=== PATIENT | female | born 1975 | race Hispanic/Latino ===

== ENCOUNTER 2019-12-03 16:00 | Emergency (ER) | payer SELFPAY, OTHER ==
--- OUTSIDE RECORDS SUMMARY | 2019-12-03 16:02 | XMS REPORT | Continuity of Care Document ---
:1975 Author Organization [facility] t Address [address] [place] [address] Care Team Providers Name Role Phone Napoleon Choudhary Attending Clinician Problems This patient has no known problems. Allergies, Adverse Reactions, Alerts This patient has no known allergies or adverse reactions. Medications This patient has no known medications. Procedures This patient has no known procedures. Encounters Start End Encounter Admission Attending Care Care Encounter Source Date/Time Date/Time Type Type Clinicians Facility Department ID 2019-08-02 2019-08-02 Office ELLEN Sanches [id number] 07:45:14 08:13:52 Visit Sury Bender CORE MAKER [id number] [facility] [id number] MATERNAL [id number] & CHILD [address] [place] [address] Results This patient has no known results.
[2019-12-03 17:14] LABS: Protime INR 0.91
[2019-12-03 17:23] LABS: Absolute Lymphocytes (CBC) 1.1 K/uL (0.7-4.9); Basophils % 0.2 % (0-1.3); Hematocrit 44.1 % (36.0-45.0); Lymphocytes % 17.6 % (15.3-44.8); MPV 8.3 fL (7.6-11.3); RBC Red Blood Cell Count 5.02 M/uL (3.86-4.86)
[2019-12-03 17:33] LABS: ALT/SGPT 33 U/L (12-78); Albumin 3.1 g/dL (3.4-5.0); Alkaline Phosphatase 133 U/L (45-117); BUN Blood Urea Nitrogen 7 mg/dL (7-18); Bicarbonate 25 mmol/L (21-32); Bilirubin Direct < 0.1 mg/dL (0-0.2); Bilirubin Total 0.3 mg/dL (0.2-1.0); Ferritin 185.2 ng/mL (8-388); Glucose Level 341 mg/dL (74-106); Lipase 40 U/L (73-393); Protein, Total 8.1 g/dL (6.4-8.2); Sodium Level 135 mmol/L (136-145); Troponin (Emerg Dept Use Only) < 0.02 ng/mL (0.0-0.045)
[2019-12-03] MEDS ORDERED: dexAMETHasone 4 MG/ML VIAL ONE (17:33)
[2019-12-03] MEDS ORDERED: NA CHLORIDE 0.9% 250 ML ONE (17:34)
[2019-12-03] MEDS ORDERED: AZITHROMYCIN 500 MG INJ IVPB ONE (17:34)
[2019-12-03 17:38] LABS: Potassium 3.9 mmol/L (3.5-5.1)
[2019-12-03 17:39] LABS: AST/SGOT 29 U/L (15-37)
[2019-12-03] MEDS ORDERED: NA CHLORIDE 0.9% 500 ML ONE (17:39)
[2019-12-03] MEDS ORDERED: ASPIRIN 81 MG CHEWABLE TABLET ONE (17:39)
--- NOTE | 2019-12-03 18:00 | EDPHYS ---
Physician Documentation [facility] Name: Effie Ferguson Age: 44 yrs Sex: Female : 1975 Arrival Date: 12/03/2019 Time: 16:01 Bed 14 Private MD: DAMIEN Physician Bairon Lujan HPI: 12/02 18:08 This 44 yrs old Female presents to ER via Ambulatory with complaints of snw Breathing Difficulty, Chest Pain, Covid +. 18:08 The patient has shortness of breath at rest. Onset: The symptoms/episode began/occurred snw gradually, 1 week(s) ago, and became persistent. Duration: The symptoms are continuous, and are unchanged since they started. Associated signs and symptoms: Pertinent positives: fatigue. Severity of symptoms: At their worst the symptoms were moderate. The patient has not experienced similar symptoms in the past. dx with CoVid 19 on at [facility]. 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 - Social history:: Smoking status: Patient reports the use of cigarette tobacco products, smokes one-half pack cigarettes per day. ROS: 18:07 Constitutional: Negative for fever, chills, and weight loss, Eyes: Negative for injury, snw pain, redness, and discharge, ENT: Negative for injury, pain, and discharge, Neck: Negative for injury, pain, and swelling, Abdomen/GI: Negative for abdominal pain, nausea, vomiting, diarrhea, and constipation, Back: Negative for injury and pain, : Negative for injury, bleeding, discharge, and swelling, MS/Extremity: Negative for injury and deformity, Skin: Negative for injury, rash, and discoloration, Neuro: Negative for headache, weakness, numbness, tingling, and seizure, Psych: Negative for depression, anxiety, suicide ideation, homicidal ideation, and hallucinations. 18:07 Cardiovascular: Positive for chest pain. 18:07 Respiratory: Positive for shortness of breath, at rest. Exam: 18:06 Constitutional: This is a well developed, well nourished patient who is awake, alert, snw and in no acute distress. Head/Face: Normocephalic, atraumatic. Eyes: Pupils equal round and reactive to light, extra-ocular motions intact. Lids and lashes normal. Conjunctiva and sclera are non-icteric and not injected. Cornea within normal limits. Periorbital areas with no swelling, redness, or edema. ENT: Nares patent. No nasal discharge, no septal abnormalities noted. Tympanic membranes are normal and external auditory canals are clear. Oropharynx with no redness, swelling, or masses, exudates, or evidence of obstruction, uvula midline. Mucous membranes moist. Neck: Trachea midline, no thyromegaly or masses palpated, and no cervical lymphadenopathy. Supple, full range of motion without nuchal rigidity, or vertebral point tenderness. No Meningismus. Chest/axilla: Normal chest wall appearance and motion. Nontender with no deformity. No lesions are appreciated. Abdomen/GI: Soft, non-tender, with normal bowel sounds. No distension or tympany. No guarding or rebound. No evidence of tenderness throughout. Back: No spinal tenderness. No costovertebral tenderness. Full range of motion. Skin: Warm, dry with normal turgor. Normal color with no rashes, no lesions, and no evidence of cellulitis. MS/ Extremity: Pulses equal, no cyanosis. Neurovascular intact. Full, normal range of motion. Neuro: Awake and alert, GCS 15, oriented to person, place, time, and situation. Cranial nerves II-XII grossly intact. Motor strength 5/5 in all extremities. Sensory grossly intact. Cerebellar exam normal. Normal gait. Psych: Awake, alert, with orientation to person, place and time. Behavior, mood, and affect are within normal limits. 18:06 Cardiovascular: Rate: tachycardic, Rhythm: regular, Pulses: no pulse deficits are appreciated. 18:06 Respiratory: the patient does not display signs of respiratory distress, Respirations: normal, Breath sounds: bronchial sounds, that are moderate, slightly halting respirations. Vital Signs: 16:12 BP 151 / 81; Pulse 113; Resp 24; Temp 98.7; Pulse Ox 97% ; Weight 77.11 kg; Height 5 ll1 ft. 1 in. (154.94 cm); Pain 6/10; 18:01 BP 139 / 78; Pulse 108; Resp 20 S; Pulse Ox 99% on R/A; jd3 19:18 BP 132 / 79; Pulse 100; Resp 19 S; Pulse Ox 99% on R/A; jd3 16:12 Body Mass Index 32.12 (77.11 kg, 154.94 cm) ll1 MDM: 16:21 Patient medically screened. snw 18:05 Data reviewed: vital signs, nurses notes, lab test result(s), EKG, radiologic studies. snw Data interpreted: Pulse oximetry: on room air is 99 %. Interpretation: normal. Counseling: I had a detailed discussion with the patient and/or guardian regarding: the historical points, exam findings, and any diagnostic results supporting the discharge/admit diagnosis, the presence of at least one elevated blood pressure reading (>120/80) during this emergency department visit, lab results, radiology results, the need for outpatient follow up, to return to the emergency department if symptoms worsen or persist or if there are any questions or concerns that arise at home. Special discussion: Based on the history and exam findings, there is no indication for further emergent testing or inpatient evaluation. I discussed with the patient/guardian the need to see the primary care provider for further evaluation of the symptoms. I discussed with the patient/guardian the need to see the cooker cleaner for further evaluation of the symptoms. 12/02 16:21 Order name: Blood Culture Adult (2) snw 12/02 16:21 Order name: BMP; Complete Time: 17:40 snw 12/02 16:21 Order name: C-Reactive Protein; Complete Time: 17:40 snw 12/02 16:21 Order name: CBC with Diff; Complete Time: 17:35 snw 12/02 16:21 Order name: D-Dimer; Complete Time: 17:22 snw 12/02 16:21 Order name: Ferritin; Complete Time: 17:40 snw 12/02 16:21 Order name: Lactate; Complete Time: 17:25 snw 12/02 16:21 Order name: LFT's; Complete Time: 17:40 snw 12/02 16:21 Order name: Lipase; Complete Time: 17:40 snw 12/02 16:21 Order name: Procalcitonin; Complete Time: 17:45 snw 12/02 16:21 Order name: PT-INR; Complete Time: 17:22 snw 12/02 16:21 Order name: Ptt, Activated; Complete Time: 17:22 snw 12/02 16:21 Order name: Troponin (emerg Dept Use Only); Complete Time: 17:40 snw 12/02 16:21 Order name: TS; Complete Time: 18:04 snw 12/02 16:21 Order name: CXR XRAY; Complete Time: 18:20 snw 12/02 16:21 Order name: EKG; Complete Time: 16:22 snw 12/02 16:21 Order name: Cardiac monitoring; Complete Time: 16:37 snw 12/02 16:21 Order name: Droplet/Contact Precautions; Complete Time: 16:25 snw 12/02 16:21 Order name: EKG - Nurse/Tech; Complete Time: 16:37 snw 12/02 16:21 Order name: IV Start; Complete Time: 17:02 snw 12/02 16:21 Order name: Labs collected and sent; Complete Time: 17:03 snw 12/02 16:21 Order name: O2 Per Protocol; Complete Time: 16:25 snw 12/02 16:21 Order name: O2 Sat Monitoring; Complete Time: 16:25 snw Administered Medications: 17:39 Drug: Decadron - Dexamethasone 10 mg Route: IVP; Site: right antecubital; jd3 18:30 Follow up: Response: No adverse reaction jd3 17:39 Drug: Zithromax 500 mg Route: IVPB; Infused Over: 1 hrs; Site: right antecubital; jd3 18:40 Follow up: Response: No adverse reaction; IV Status: Completed infusion; IV Intake: jd3 250ml 17:39 Drug: Aspirin Chewable Tablet 324 mg Route: PO; jd3 18:30 Follow up: Response: No adverse reaction jd3 17:39 Drug: NS 0.9% 500 ml Route: IV; Rate: 100 ml/hr; Site: right antecubital; jd3 19:22 Follow up: Response: No adverse reaction; IV Status: Order to discontinue infusion jd3 Disposition: 12/03 18:38 Co-signature as Attending Physician, Bairon HENRY I agree with the assessment and jacqueline plan of care. Disposition: 12/03/19 17:59 Discharged to Home. Impression: Pneumonia due to SARS-associated coronavirus. - Condition is Stable. - Discharge Instructions: Rehydration, Adult, COVID-19. - Prescriptions for Zinc (with A and C) Lozenges - dissolve 1 lozenge by ORAL route once daily; 30 lozenge. melatonin - take 5 milligram by ORAL route At bedtime; 30 milligram. Prednisone 20 mg Oral Tablet - take 2 tablet by ORAL route once daily for 5 days; 10 tablet. Zithromax 500 mg Oral Tablet - take 1 tablet by ORAL route once daily for 5 days; 5 tablet. - Medication Reconciliation Form, Thank You Letter, Antibiotic Education, Prescription Opioid Use form. - Follow up: Private Physician; When: 1 - 2 days; Reason: Recheck today's complaints, Continuance of care, Re-evaluation by your physician. Follow up: Emergency Department; When: As needed; Reason: Worsening of condition. - Notes: Please take Aspirin 81mg orally daily for 1 month Signatures: Dispatcher [employer] EDMS Bairon Lujan, Charlotte Wiley MD, cha, CLAIM ANALYST-C CLAIM ANALYST-Csnw Josse Bailey RN RN Kylah Billingsley RN RN ll1 Corrections: (The following items were deleted from the chart) 12/02 19:31 17:59 12/03/2019 17:59 Discharged to Home. Impression: Pneumonia due to SARS-associated jd3 coronavirus. Condition is Stable. Forms are Medication Reconciliation Form, Thank You Letter, Antibiotic Education, Prescription Opioid Use. Follow up: Private Physician; When: 1 - 2 days; Reason: Recheck today's complaints, Continuance of care, Re-evaluation by your physician. Follow up: Emergency Department; When: As needed; Reason: Worsening of condition. snw
--- NOTE | 2019-12-03 18:00 | ER ---
Nurse's Notes [facility] Name: Effie Ferguson Age: 44 yrs Sex: Female : 1975 Arrival Date: 12/03/2019 Time: 16:01 Bed 14 Private MD: Diagnosis: Pneumonia due to SARS-associated coronavirus Presentation: 12/02 16:12 Chief complaint: Patient states: CP and SOB for 2 days. Found out covid positive ll1 ., + body aches, fatigue, nausea. Coronavirus screen: Client denies travel out of the [place] in the last 14 days. difficulty breathing, fatigue, Client presents with at least one sign or symptom that may indicate coronavirus-19. Standard/surgical mask placed on the client. Client reports previous positive COVID test result. Ebola Screen: Patient denies travel to an Ebola-affected area in the 21 days before illness onset. Initial Sepsis Screen: Does the patient meet any 2 criteria? HR > 90 bpm. No. Patient's initial sepsis screen is negative. Does the patient have a suspected source of infection? Yes: Productive cough/pneumonia. Risk Assessment: Do you want to hurt yourself or someone else? Patient reports no desire to harm self or others. Onset of symptoms was December 02, 2019. 16:12 Method Of Arrival: Ambulatory ll1 16:12 Acuity: MARNI 3 ll1 Triage Assessment: 19:18 Respiratory: Onset: The symptoms/episode began/occurred gradually, the patient has mild jd3 shortness of breath. 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 - Social history:: Smoking status: Patient reports the use of cigarette tobacco products, smokes one-half pack cigarettes per day. Screenin:18 Abuse screen: Denies threats or abuse. Nutritional screening: No deficits noted. jd3 Tuberculosis screening: No symptoms or risk factors identified. Fall Risk Ambulatory Aid- None/Bed Rest/Nurse Assist (0 pts). Gait- Normal/Bed Rest/Wheelchair (0 pts) Mental Status- Oriented to own ability (0 pts). Total Greer Fall Scale indicates No Risk (0-24 pts). Assessment: 16:25 General: Appears in no apparent distress. uncomfortable, Behavior is calm, cooperative, jd3 appropriate for age. Pain: Complains of pain in chest Quality of pain is described as pressure. Neuro: Level of Consciousness is awake, alert, obeys commands, Oriented to person, place, time, situation. Cardiovascular: Reports chest pain, Heart tones present Capillary refill < 3 seconds Rhythm is sinus tachycardia. Respiratory: Reports shortness of breath at rest pain with respiration Airway is patent Respiratory effort is even, labored, Respiratory pattern is regular, symmetrical, Breath sounds are clear bilaterally. GI: Abdomen is round non-distended, Abd is soft and non tender X 4 quads. Reports nausea. : No signs and/or symptoms were reported regarding the genitourinary system. EENT: No signs and/or symptoms were reported regarding the EENT system. Derm: Skin is intact, Skin is dry, Skin is normal, Skin temperature is warm. Musculoskeletal: Circulation, motion, and sensation intact. Range of motion: intact in all extremities. 17:30 Reassessment: Patient appears in no apparent distress at this time. No changes from jd3 previously documented assessment. Patient and/or family updated on plan of care and expected duration. Pain level reassessed. Patient is alert, oriented x 3, equal unlabored respirations, skin warm/dry/pink. 18:00 Reassessment: Patient appears in no apparent distress at this time. No changes from jd3 previously documented assessment. Patient and/or family updated on plan of care and expected duration. Pain level reassessed. Patient is alert, oriented x 3, equal unlabored respirations, skin warm/dry/pink. awaiting med infusion before discharge. 19:16 Reassessment: Patient appears in no apparent distress at this time. Patient and/or jd3 family updated on plan of care and expected duration. Pain level reassessed. Patient is alert, oriented x 3, equal unlabored respirations, skin warm/dry/pink. awaiting ride for discharge. pt reporting understanding of discharge instructions. Vital Signs: 16:12 BP 151 / 81; Pulse 113; Resp 24; Temp 98.7; Pulse Ox 97% ; Weight 77.11 kg; Height 5 ll1 ft. 1 in. (154.94 cm); Pain 6/10; 18:01 BP 139 / 78; Pulse 108; Resp 20 S; Pulse Ox 99% on R/A; jd3 19:18 BP 132 / 79; Pulse 100; Resp 19 S; Pulse Ox 99% on R/A; jd3 16:12 Body Mass Index 32.12 (77.11 kg, 154.94 cm) ll1 ED Course: 16:01 Patient arrived in ED. ds1 16:14 Triage completed. ll1 16:15 Arm band placed on Patient placed in an exam room, on a stretcher. ll1 16:19 Charlotte Gutierrez FNP-C is [facility]. snw 16:19 Bairon Lujan MD is Attending Physician. snw 16:25 Josse Bailey RN is Primary Nurse. jd3 16:45 CXR XRAY In Process Unspecified. EDMS 16:50 Initial lab(s) drawn, by me, sent to lab. First set of blood cultures drawn by me. 3 Inserted saline lock: 20 gauge in right antecubital area, using aseptic technique. Blood collected. 16:50 T\T\S collected, blood band applied to patient. dh3 16:55 Second set of blood cultures drawn by me. dh3 19:19 Patient has correct armband on for positive identification. Bed in low position. Call jd3 light in reach. Side rails up X 1. secured entrance monitor on. Pulse ox on. NIBP on. 19:19 No provider procedures requiring assistance completed. IV discontinued, intact, jd3 bleeding controlled, No redness/swelling at site. Pressure dressing applied. Administered Medications: 17:39 Drug: Decadron - Dexamethasone 10 mg Route: IVP; Site: right antecubital; jd3 18:30 Follow up: Response: No adverse reaction jd3 17:39 Drug: Zithromax 500 mg Route: IVPB; Infused Over: 1 hrs; Site: right antecubital; jd3 18:40 Follow up: Response: No adverse reaction; IV Status: Completed infusion; IV Intake: jd3 250ml 17:39 Drug: Aspirin Chewable Tablet 324 mg Route: PO; jd3 18:30 Follow up: Response: No adverse reaction jd3 17:39 Drug: NS 0.9% 500 ml Route: IV; Rate: 100 ml/hr; Site: right antecubital; jd3 19:22 Follow up: Response: No adverse reaction; IV Status: Order to discontinue infusion jd3 Intake: 18:40 IV: 250ml; Total: 250ml. jd3 Outcome: 17:59 Discharge ordered by MD. snow 19:20 Condition: stable jd3 19:30 Discharged to home ambulatory, with family. jd3 19:30 Discharge instructions given to patient, Instructed on discharge instructions, follow up and referral plans. medication usage, Demonstrated understanding of instructions, follow-up care, medications, Prescriptions given X 4. 19:31 Patient left the ED. jd3 Signatures: Dispatcher [employer] EDMS Charlotte Gutierrez, ROLOC RECEIVING COORDINATOR-Aisha Forrest dsShayna Soriano Jonathon RN RN jd3 Kylah Fuller RN RN ll1 Corrections: (The following items were deleted from the chart) 18:01 18:00 Reassessment: awaiting med infusion before discharge. jd3 jd3
--- NOTE | 2019-12-03 18:15 | RAD REPORT ---
EXAM DESCRIPTION: Jeffry Single View12/03/2019 4:45 pm CLINICAL HISTORY: Cough COMPARISON: 2017 FINDINGS: Mild bilateral pulmonary opacities suspected The heart is normal size IMPRESSION: Mild bilateral pulmonary opacities likely pneumonia
[2019-12-03] MEDS ORDERED: PROMETHAZINE 25 MG TABLET ONE (18:34)
[2019-12-03 20:31] VITALS: TEMP 98.7
[2019-12-03 20:32] VITALS: O2SAT 99
[2019-12-03 20:35] VITALS: BP 132/79
--- NOTE | 2019-12-05 07:46 | EKG ---
Test Date: 2019-12-03 Test Time: 16:33:29 Enroller: JOHN MEASUREMENT RESULTS: Intervals: Rate: 103 ND: 144 QRSD: 74 QT: 332 QTc: 434 Winside: P: 55 ND: 144 QRS: 15 T: 61 INTERPRETIVE STATEMENTS: Sinus tachycardia Anteroseptal infarct, age undetermined Abnormal ECG Compared to ECG 11/06/2016 20:24:40 Sinus rhythm no longer present Myocardial infarct finding still present Electronically Signed On 12-05-19 07:43:17 CDT by William Muñoz
== END 2019-12-03 19:31 | disposition home or self-care (01) ==
LOC: ER 16:00
DX: J18.9 Pneumonia, unspecified organism (principal); Z86.19 Personal history of other infectious and parasitic diseases; E11.9 Type 2 diabetes mellitus without complications; F17.210 Nicotine dependence, cigarettes, uncomplicated
CPT/HCPCS: 36415; 71045; 80048; 80076; 82728; 83605; 83690; 84145; 84484; 85025; 85379; 85610; 85730; 86140; 86850; 86900; 86901; 87040; 93005; 96361; 96365; 96375; 99284; J0456; J1100; J7040; J7050; Q0169

== ENCOUNTER 2019-12-16 10:27 | Emergency (ER) | payer SELFPAY, OTHER ==
--- OUTSIDE RECORDS SUMMARY | 2019-12-16 10:41 | XMS REPORT | Continuity of Care Document ---
:1975 Author Organization [facility] t Address 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 [id number] MATERNAL [id number] & CHILD [address] [place] [address] Results This patient has no known results.
[2019-12-16] MEDS ORDERED: MAGNES/ALUMIN/SIMET 30ML UCUP ONE (11:18)
[2019-12-16] MEDS ORDERED: ONDANSETRON 4 MG/2 ML VIAL ONE (11:18)
[2019-12-16] MEDS ORDERED: LIDOCAINE VISCOUS 2% SOLN 15 ML UDC ONE (11:18)
[2019-12-16] MEDS ORDERED: NA CHLORIDE 0.9% 1,000 ML ONE (11:18)
[2019-12-16] MEDS ORDERED: FAMOTIDINE 20 MG/2 ML VIAL IV ONE (11:18)
[2019-12-16] MEDS ORDERED: MORPHINE 4 MG/ML SYR ONE (12:49)
[2019-12-16 13:36] LABS: ALT/SGPT 17 U/L (12-78); AST/SGOT 10 U/L (15-37); Alkaline Phosphatase 99 U/L (45-117); BUN Blood Urea Nitrogen 5 mg/dL (7-18); Bicarbonate 23 mmol/L (21-32); Bilirubin Total 0.4 mg/dL (0.2-1.0); Glucose Level 320 mg/dL (74-106); Sodium Level 136 mmol/L (136-145)
[2019-12-16 13:37] LABS: Albumin 3.2 g/dL (3.4-5.0); Bilirubin Direct < 0.1 mg/dL (0-0.2); Lipase 318 U/L (73-393); Protein, Total 7.1 g/dL (6.4-8.2)
[2019-12-16 13:48] LABS: Absolute Lymphocytes (CBC) 1.7 K/uL (0.7-4.9); Basophils % 0.4 % (0-1.3); Hematocrit 35.2 % (36.0-45.0); Lymphocytes % 13.7 % (15.3-44.8); MPV 8.6 fL (7.6-11.3); RBC Red Blood Cell Count 4.02 M/uL (3.86-4.86)
--- NOTE | 2019-12-16 14:29 | RAD REPORT ---
EXAM DESCRIPTION: CT - Abdomen Pelvis W Contrast - 12/16/2019 2:12 pm CLINICAL HISTORY: EPIGASTRIC PAIN COMPARISON: CT ABD PELVIS W CONTRAST dated 03/14/2014 TECHNIQUE: Biphasic, helical CT imaging of the abdomen and pelvis was performed following 100 ml non -ionic IV contrast. Oral contrast was given. All CT scans are performed using dose optimization technique as appropriate and may include automated exposure control or mA/KV adjustment according to patient size. FINDINGS: No suspicious findings in the lung bases. Liver and spleen show no suspicious focal findings. Liver shows diffuse fatty infiltration. Cholecyst ectomy clips are present. No biliary tree dilatation. No solid or cystic mass of the pancreatic parenchyma identified. There is a trace amount of stranding in the fat between the pancreatic head and duodenal bulb. Zendejas of the duodenal bulb are slightly th ickened or edematous. No small bowel dilatation or mass. Appendix is normal. Symmetric renal function is seen with no hydronephrosis or suspicious renal mass. No pyelonephritis o r acute parenchymal process. No bladder abnormalities. No adrenal abnormalities. Uterus is absent. No mass of the vaginal cuff. The 17 millimeter right ovarian cyst is present. A 5.1 x 2.7 centimeter en larged lobulated left ovary is present. This has multiple low-density areas in is probably multiple c ysts. This is an enlargement from 2015 and warrants monitoring with follow-up sonography in 4-6 month s. No dilated bowel loops or bowel wall thickening. No free air, free fluid or inflammatory stranding. No mass or bulky lymphadenopathy. A 3 centimeter fat only supraumbilical hernia is present fractiona lly larger than 2015. Neck is 15 mm. No bowel involvement or other acute finding. No acute bone finding. IMPRESSION: Trace amount of stranding is seen between the pancreatic head and the duodenal bulb. Thi s could be duodenitis or minimal pancreatitis. Correlation is needed with clinical presentation and l ab findings. Fatty infiltration of the liver. No biliary tree dilatation. A 5.1 x 2.7 centimeter enlarged left ovary is present likely confluence of multiple small cysts or fo llicles. This needs ongoing monitoring with re-evaluation in 4-6 months.
--- NOTE | 2019-12-16 14:54 | ER ---
Nurse's Notes [facility] Name: Effie Ferguson Age: 44 yrs Sex: Female : 1975 Arrival Date: 12/16/2019 Time: 10:28 Bed 14 Private MD: Diagnosis: Epigastric pain Presentation: 12/15 10:34 Chief complaint: Patient states: epigastric burning with nausea that began 2 days ago. ss Pt reports that the pain radiates towards her back. Pt states, "I had COVID a few weeks ago and it might be from taking all the pain medication.". Coronavirus screen: Client denies travel out of the [place] in the last 14 days. Ebola Screen: Patient denies exposure to infectious person. Patient denies travel to an Ebola-affected area in the 21 days before illness onset. Initial Sepsis Screen: Does the patient meet any 2 criteria? HR > 90 bpm. Does the patient have a suspected source of infection? No. Patient's initial sepsis screen is negative. Risk Assessment: Do you want to hurt yourself or someone else? Patient reports no desire to harm self or others. Onset of symptoms was December 14, 2019. 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 - Social history:: Smoking status: Patient reports the use of cigarette tobacco products, smokes one-half pack cigarettes per day. Screenin:45 Abuse screen: Denies threats or abuse. Denies injuries from another. Nutritional ca1 screening: No deficits noted. Tuberculosis screening: No symptoms or risk factors identified. Fall Risk IV access (20 points). Assessment: 10:45 General: Appears in no apparent distress. comfortable, Behavior is calm, cooperative, ca1 appropriate for age. Pain: Complains of pain in epigastric area Pain does not radiate. Pain currently is 8 out of 10 on a pain scale. Pain began 2-3 days ago. Is continuous. Neuro: Level of Consciousness is awake, alert, obeys commands, Oriented to person, place, time, situation. Cardiovascular: Heart tones S1 S2 present Capillary refill < 3 seconds Patient's skin is warm and dry. Rhythm is sinus rhythm. Respiratory: Airway is patent Respiratory effort is even, unlabored, Respiratory pattern is regular, symmetrical, Breath sounds are clear bilaterally. GI: Abdomen is round non-distended, Bowel sounds present X 4 quads. Abd is soft X 4 quads Abdomen is tender to palpation in epigastric area Reports nausea. : No signs and/or symptoms were reported regarding the genitourinary system. EENT: No signs and/or symptoms were reported regarding the EENT system. Derm: Skin is intact, is healthy with good turgor, Skin is pink, warm \\T\\ dry. Musculoskeletal: Circulation, motion, and sensation intact. Capillary refill < 3 seconds. 11:45 Reassessment: Patient appears in no apparent distress at this time. Patient and/or ca1 family updated on plan of care and expected duration. Pain level reassessed. Patient is alert, oriented x 3, equal unlabored respirations, skin warm/dry/pink. 12:40 Reassessment: Patient appears in no apparent distress at this time. Patient and/or ca1 family updated on plan of care and expected duration. Pain level reassessed. Patient is alert, oriented x 3, equal unlabored respirations, skin warm/dry/pink. 13:49 Reassessment: Patient appears in no apparent distress at this time. Patient and/or ca1 family updated on plan of care and expected duration. Pain level reassessed. Patient is alert, oriented x 3, equal unlabored respirations, skin warm/dry/pink. 14:37 Reassessment: Patient appears in no apparent distress at this time. Patient and/or ca1 family updated on plan of care and expected duration. Pain level reassessed. Patient is alert, oriented x 3, equal unlabored respirations, skin warm/dry/pink. 15:15 Reassessment: Patient appears in no apparent distress at this time. Patient is alert, ca1 oriented x 3, equal unlabored respirations, skin warm/dry/pink. Vital Signs: 10:34 BP 162 / 105; Pulse 99; Resp 20; Temp 97.7(TE); Pulse Ox 97% on R/A; Weight 74.84 kg; ss Height 5 ft. 1 in. (154.94 cm); Pain 1010; 11:30 BP 157 / 80; Pulse 82; Resp 17 S; Pulse Ox 100% on R/A; ca1 12:40 BP 152 / 88; Pulse 84; Resp 18 S; Pulse Ox 100% on R/A; ca1 13:49 BP 162 / 63; Pulse 81; Resp 16 S; Pulse Ox 100% on R/A; ca1 14:37 BP 140 / 62; Pulse 86; Resp 18 S; Pulse Ox 100% on R/A; ca1 15:15 BP 135 / 72; Pulse 81; Resp 15 S; Pulse Ox 100% ; ca1 10:34 Body Mass Index 31.18 (74.84 kg, 154.94 cm) ss ED Course: 10:28 Patient arrived in ED. bp1 10:35 Triage completed. ss 10:36 Arm band placed on right wrist. ss 10:39 Bairon Newberry PA is PHCP. cp 10:39 Abe Westbrook MD is Attending Physician. cp 10:40 Krista Pizarro RN is Primary Nurse. ca1 11:16 Patient has correct armband on for positive identification. Placed in gown. Bed in low mh5 position. Call light in reach. Side rails up X 1. Warm blanket given. Pulse ox on. NIBP on. 11:16 Initial lab(s) drawn, Repeat lab(s) drawn. sent to lab. mh5 11:17 Basic Metabolic Panel Sent. mh5 11:17 CBC with Diff Sent. mh5 11:17 Hepatic Function Sent. mh5 11:17 Lipase Sent. mh5 11:18 Inserted saline lock: 20 gauge in right antecubital area, using aseptic technique. ca1 Blood collected. 14:12 CT Abd/Pelvis - IV Contrast Only In Process Unspecified. EDMS 14:52 Gagandeep Cardoza MD is Referral Physician. cp 15:18 No provider procedures requiring assistance completed. IV discontinued, intact, ca1 bleeding controlled, No redness/swelling at site. Pressure dressing applied. Administered Medications: 11:15 Drug: GI Cocktail without - (Maalox Suspension 30 ml, Lidocaine Liquid 2 % 15 ca1 ml) Route: PO; 11:18 Drug: NS 0.9% 1000 ml Route: IV; Rate: 1 bolus; Site: right antecubital; ca1 11:19 Drug: Pepcid 20 mg Route: IVP; Site: right antecubital; ca1 11:21 Drug: Zofran (Ondansetron) 4 mg Route: IVP; Site: right antecubital; ca1 12:38 Drug: morphine 4 mg {Note: rass 0.} Route: IVP; Site: right antecubital; ca1 14:49 Drug: ProTONIX 40 mg Route: IVP; Site: right antecubital; ca1 Outcome: 14:53 Discharge ordered by MD. cp 15:18 Discharged to home ambulatory. ca1 15:18 Condition: stable 15:18 Discharge instructions given to patient, Instructed on discharge instructions, follow up and referral plans. no drinking with medication, no driving heavy equipment, medication usage, Demonstrated understanding of instructions, follow-up care, medications, Prescriptions given X 3. 15:23 Patient left the ED. ca1 Signatures: Dispatcher [employer] EDMS Ghada Castro RN RN ss Bairon Newberry PA PA Effie Duque [facility] Krista Pizarro RN RN ca1 Araceli Sampson [facility] Corrections: (The following items were deleted from the chart) 14:39 14:37 Pulse 86bpm; Resp 18bpm; Spontaneous; Pulse Ox 100% RA; ca1 ca1
--- NOTE | 2019-12-16 14:54 | EDPHYS ---
Physician Documentation [facility] Name: Effie Ferguson Age: 44 yrs Sex: Female : 1975 Arrival Date: 12/16/2019 Time: 10:28 Bed 14 Private MD: ED Physician Abe Westbrook HPI: 12/15 11:05 This 44 yrs old Female presents to ER via Ambulatory with complaints of cp Abdominal Pain. 11:05 The patient presents with abdominal pain in the epigastric area. Onset: The cp symptoms/episode began/occurred this morning. The symptoms radiate to back. 11:05 Associated signs and symptoms: Pertinent positives: nausea, Pertinent negatives: chest cp pain, constipation, diarrhea, dysuria, fever, palpitations, shortness of breath, vomiting. 11:05 The symptoms are described as burning, constant. 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 - Social history:: Smoking status: Patient reports the use of cigarette tobacco products, smokes one-half pack cigarettes per day. ROS: 11:10 Constitutional: Negative for body aches, chills, fever, poor PO intake. cp 11:10 Eyes: Negative for injury, pain, redness, and discharge. cp 11:10 ENT: Negative for ear pain, sore throat, difficulty swallowing, difficulty handling secretions. 11:10 Cardiovascular: Negative for chest pain, palpitations. 11:10 Respiratory: Negative for cough, shortness of breath, wheezing. 11:10 Abdomen/GI: Positive for abdominal pain, nausea, Negative for vomiting, diarrhea, constipation. 11:10 Back: Positive for radiated pain. 11:10 : Negative for urinary symptoms. 11:10 All other systems are negative. Exam: 11:00 ECG was reviewed by the Attending Physician. cp 11:13 Constitutional: The patient appears in no acute distress, alert, awake, cp non-diaphoretic, non-toxic, well developed, well nourished, uncomfortable. 11:13 Head/Face: Normocephalic, atraumatic. cp 11:13 Eyes: Periorbital structures: appear normal, Conjunctiva: normal, no exudate, no injection, Sclera: no appreciated abnormality, Lids and lashes: appear normal, bilaterally. 11:13 ENT: External ear(s): are unremarkable, Nose: is normal, Posterior pharynx: Airway: no evidence of obstruction, patent. 11:13 Chest/axilla: Inspection: normal, Palpation: is normal, no crepitus, no tenderness. 11:13 Cardiovascular: Rate: normal, Rhythm: regular. 11:13 Respiratory: the patient does not display signs of respiratory distress, Respirations: normal, no use of accessory muscles, no retractions, labored breathing, is not present, Breath sounds: are clear throughout, no decreased breath sounds. 11:13 Abdomen/GI: Inspection: abdomen appears normal, Bowel sounds: active, all quadrants, Palpation: soft, in all quadrants, severe abdominal tenderness, in the epigastric area, rebound tenderness, is not appreciated, voluntary guarding, is not appreciated, involuntary guarding, is not appreciated. 11:13 Back: pain, that is moderate, of the mid back area. Vital Signs: 10:34 BP 162 / 105; Pulse 99; Resp 20; Temp 97.7(TE); Pulse Ox 97% on R/A; Weight 74.84 kg; ss Height 5 ft. 1 in. (154.94 cm); Pain 10; 11:30 BP 157 / 80; Pulse 82; Resp 17 S; Pulse Ox 100% on R/A; ca1 12:40 BP 152 / 88; Pulse 84; Resp 18 S; Pulse Ox 100% on R/A; ca1 13:49 BP 162 / 63; Pulse 81; Resp 16 S; Pulse Ox 100% on R/A; ca1 14:37 BP 140 / 62; Pulse 86; Resp 18 S; Pulse Ox 100% on R/A; ca1 15:15 BP 135 / 72; Pulse 81; Resp 15 S; Pulse Ox 100% ; ca1 10:34 Body Mass Index 31.18 (74.84 kg, 154.94 cm) ss MDM: 10:49 Patient medically screened. cp 14:52 Data reviewed: vital signs, nurses notes, lab test result(s), radiologic studies, CT cp scan. 12/15 10:57 Order name: Basic Metabolic Panel; Complete Time: 13:59 cp 12/15 13:59 Interpretation: Normal except: GLUC 320; BUN 5. cp 12/15 10:57 Order name: CBC with Diff; Complete Time: 13:59 cp 12/15 13:59 Interpretation: Normal except: WBC 12.7; HCT 35.2; BAYLEE% 79.9; LYM% 13.7; NEUT A 10.1. cp 12/15 10:57 Order name: Hepatic Function; Complete Time: 13:59 cp 12/15 13:59 Interpretation: Normal except: AST 10; ALB 3.2; GLOB 3.9; A/G 0.8. cp 12/15 10:57 Order name: Lipase; Complete Time: 13:59 cp 12/15 12:19 Order name: CT Abd/Pelvis - IV Contrast Only; Complete Time: 14:36 cp 12/15 14:36 Interpretation: Report reviewed. cp 12/15 10:57 Order name: IV Saline Lock; Complete Time: 11:18 cp 12/15 10:57 Order name: Labs collected and sent; Complete Time: 11:17 cp 12/15 13:28 Order name: EKG Electrocardiogram EDAK 12/15 11:52 Order name: Labs - recollect needed: cbc \T\ basic-extemely lipemic; Complete Time: 12:38 sv 12/15 14:37 Order name: PO challenge; Complete Time: 15:22 cp EC:00 Rate is 81 beats/min. Rhythm is regular. MD interval is normal. QRS interval is normal. cp QT interval is normal. T waves are Inverted in lead III. Interpreted by me. Reviewed by me. Administered Medications: 11:15 Drug: GI Cocktail without - (Maalox Suspension 30 ml, Lidocaine Liquid 2 % 15 ca1 ml) Route: PO; 11:18 Drug: NS 0.9% 1000 ml Route: IV; Rate: 1 bolus; Site: right antecubital; ca1 11:19 Drug: Pepcid 20 mg Route: IVP; Site: right antecubital; ca1 11:21 Drug: Zofran (Ondansetron) 4 mg Route: IVP; Site: right antecubital; ca1 12:38 Drug: morphine 4 mg {Note: rass 0.} Route: IVP; Site: right antecubital; ca1 14:49 Drug: ProTONIX 40 mg Route: IVP; Site: right antecubital; ca1 Disposition: 15:54 Co-signature as Attending Physician, Abe Westbrook MD I agree with the assessment and kdr plan of care. Disposition: 12/16/19 14:53 Discharged to Home. Impression: Epigastric pain. - Condition is Stable. - Discharge Instructions: Gastritis, Adult, Gastroesophageal Reflux Disease, Adult, Upper Endoscopy. - Prescriptions for Protonix 40 mg Oral Tablet - take 1 tablet by ORAL route once daily; 30 tablet. Zofran 4 mg Oral Tablet - take 1 tablet by ORAL route every 12 hours As needed; 20 tablet. Tramadol 50 mg Oral Tablet - take 1 tablet by ORAL route every 8 hours as needed; 12 tablet. - Medication Reconciliation Form, Thank You Letter, Antibiotic Education, Prescription Opioid Use form. - Follow up: Gagandeep Cardoza MD; When: 2 - 3 days; Reason: Recheck today's complaints. - Problem is new. - Symptoms have improved. Signatures: Dispatcher [employer] Evelyn Hart, RN RN Abe Westbrook MD MD [facility] Gahda Castro RN RN Bairon Newberry PA PA cp Acvanessa, Krista, RN RN ca1 Corrections: (The following items were deleted from the chart) 11:51 11:51 Labs - recollect needed ordered. [facility] 15:23 14:53 12/16/2019 14:53 Discharged to Home. Impression: Epigastric pain. Condition is ca1 Stable. Forms are Medication Reconciliation Form, Thank You Letter, Antibiotic Education, Prescription Opioid Use. Follow up: Gagandeep Cardoza; When: 2 - 3 days; Reason: Recheck today's complaints. Problem is new. Symptoms have improved. cp
[2019-12-16] MEDS ORDERED: PANTOPRAZOLE 40 MG INJ ONE (14:59)
[2019-12-16] MEDS ORDERED: WATER FOR INJ,STERILE 10 ML ONE (14:59)
[2019-12-16 15:48] VITALS: TEMP 97.7
[2019-12-16 15:49] VITALS: O2SAT 100
[2019-12-16 16:07] VITALS: BP 135/72
--- NOTE | 2019-12-17 09:33 | EKG ---
Test Date: 2019-12-16 Test Time: 10:46:11 Commercial Intelligence Manager: STEPHANIE MEASUREMENT RESULTS: Intervals: Rate: 81 IL: 138 QRSD: 76 QT: 368 QTc: 427 Hernando: P: 46 IL: 138 QRS: -9 T: 29 INTERPRETIVE STATEMENTS: Normal sinus rhythm Possible Anterior infarct, age undetermined Abnormal ECG Compared to ECG 12/03/2019 16:33:29 Sinus tachycardia no longer present Myocardial infarct finding still present Electronically Signed On 12-17-19 09:31:06 CDT by William Muñoz
== END 2019-12-16 15:23 | disposition home or self-care (01) ==
LOC: ER 10:27
DX: R10.13 Epigastric pain (principal); E11.9 Type 2 diabetes mellitus without complications; F17.210 Nicotine dependence, cigarettes, uncomplicated
CPT/HCPCS: 36415; 74177; 80048; 80076; 83690; 85025; 93005; 96374; 96375; 99284; C9113; J2405; J7030; Q9967

== ENCOUNTER 2020-06-15 02:23 | Emergency (ER) | payer SELFPAY ==
--- OUTSIDE RECORDS SUMMARY | 2020-06-15 02:25 | XMS REPORT | Continuity of Care Document ---
:1975 Author Organization [facility] t Address [address] [place] [address] Care Team Providers Name Role Phone Napoleon Choudhary Attending Clinician Topher Mckenna Attending Clinician Problems This patient has no known problems. Allergies, Adverse Reactions, Alerts This patient has no known allergies or adverse reactions. Medications This patient has no known medications. Procedures This patient has no known procedures. Encounters Start End Encounter Admission Attending Care Care Encounter Source Date/Time Date/Time Type Type Clinicians Facility Department ID 2020-05-22 2020-05-22 Refill ELLEN Sanches [id number] 00:00:00 00:00:00 Sury Bender [employer] [id number] REGIONAL [id number] MATERNAL [id number] & CHILD 107 [facility] 2020-05-21 2020-05-21 Refill ELLEN Livingston [id number] 00:00:00 00:00:00 Maria Victoria Obadno [employer] [id number] REGIONAL [id number] MATERNAL [id number] & CHILD 107 [facility] 2020-03-06 2020-03-06 Telephone ELLEN Sanches [id number] 00:00:00 00:00:00 Sury Bender [employer] [id number] [facility] [id number] MATERNAL [id number] & CHILD [address] [place] [address] Results This patient has no known results.
[2020-06-15 03:24] LABS: Absolute Lymphocytes (CBC) 1.3 K/uL (0.7-4.9); Basophils % 0.5 % (0-1.3); Lymphocytes % 9.6 % (15.3-44.8); MPV 8.7 fL (7.6-11.3)
[2020-06-15] MEDS ORDERED: LIDOCAINE VISCOUS 2% SOLN 15 ML UDC ONE (03:29)
[2020-06-15] MEDS ORDERED: MAGNES/ALUMIN/SIMET 30ML UCUP ONE (03:29)
[2020-06-15] MEDS ORDERED: NA CHLORIDE 0.9% 1,000 ML ONE (03:29)
[2020-06-15] MEDS ORDERED: PANTOPRAZOLE 40 MG INJ ONE (03:29)
[2020-06-15] MEDS ORDERED: ONDANSETRON 4 MG/2 ML VIAL ONE (03:29)
[2020-06-15] MEDS ORDERED: MORPHINE 4 MG/ML SYR ONE (03:59)
[2020-06-15 04:51] LABS: ALT/SGPT 26 U/L (12-78); Albumin 3.6 g/dL (3.4-5.0); Alkaline Phosphatase 94 U/L (45-117); BUN Blood Urea Nitrogen 9 mg/dL (7-18); Bicarbonate 22 mmol/L (21-32); Bilirubin Direct < 0.1 mg/dL (0-0.2); Bilirubin Total 0.5 mg/dL (0.2-1.0); Glucose Level 198 mg/dL (74-106); Lipase 190 U/L (73-393); Protein, Total 7.7 g/dL (6.4-8.2); Sodium Level 137 mmol/L (136-145)
[2020-06-15 04:52] LABS: AST/SGOT 26 U/L (15-37)
--- NOTE | 2020-06-15 05:07 | EDPHYS ---
Physician Documentation [facility] Name: Effie Ferguson Age: 44 yrs Sex: Female : 1975 Arrival Date: 06/15/2020 Time: 02:25 Bed 14 Private MD: ED Physician Nico Romero HPI: 06/15 03:22 This 44 yrs old Female presents to ER via Ambulatory with complaints of tw4 Abdominal Pain. 03:22 The patient presents with abdominal pain. Onset: The symptoms/episode began/occurred tw4 today. The symptoms do not radiate. Associated signs and symptoms: none. The symptoms are described as dull. Modifying factors: The symptoms are alleviated by nothing, the symptoms are aggravated by nothing. Severity of pain: At its worst the pain was moderate in the emergency department the pain is unchanged. The patient has not experienced similar symptoms in the past. 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 - Social history:: Smoking status: Patient reports the use of cigarette tobacco products, smokes one-half pack cigarettes per day. ROS: 03:25 Constitutional: Negative for fever, chills, and weight loss, Eyes: Negative for injury, tw4 pain, redness, and discharge, Cardiovascular: Negative for chest pain, palpitations, and edema, Respiratory: Negative for shortness of breath, cough, wheezing, and pleuritic chest pain, Back: Negative for injury and pain, MS/Extremity: Negative for injury and deformity, Skin: Negative for injury, rash, and discoloration, Neuro: Negative for headache, weakness, numbness, tingling, and seizure. 03:25 Abdomen/GI: Positive for abdominal pain, Negative for nausea and vomiting, nausea, vomiting, and diarrhea, nausea, vomiting, diarrhea, constipation, anorexia, dysphagia, hematemesis, black/tarry stool, rectal pain, rectal bleeding. Exam: 03:25 Constitutional: This is a well developed, well nourished patient who is awake, alert, tw4 and in no acute distress. Head/Face: Normocephalic, atraumatic. Chest/axilla: Normal chest wall appearance and motion. Nontender with no deformity. No lesions are appreciated. Cardiovascular: Regular rate and rhythm with a normal S1 and S2. No gallops, murmurs, or rubs. Normal PMI, no JVD. No pulse deficits. Respiratory: Lungs have equal breath sounds bilaterally, clear to auscultation and percussion. No rales, rhonchi or wheezes noted. No increased work of breathing, no retractions or nasal flaring. Skin: Warm, dry with normal turgor. Normal color with no rashes, no lesions, and no evidence of cellulitis. MS/ Extremity: Pulses equal, no cyanosis. Neurovascular intact. Full, normal range of motion. Neuro: Awake and alert, GCS 15, oriented to person, place, time, and situation. Cranial nerves II-XII grossly intact. Motor strength 5/5 in all extremities. Sensory grossly intact. Cerebellar exam normal. Normal gait. 03:25 Abdomen/GI: Inspection: abdomen appears normal, Bowel sounds: diminished, Palpation: moderate abdominal tenderness, in the epigastric area. Vital Signs: 02:51 BP 115 / 57; Pulse 100; Resp 16; Temp 98.9; Pulse Ox 99% on R/A; Weight 77.11 kg; iw Height 5 ft. 1 in. (154.94 cm); Pain 10/10; 05:15 BP 110 / 60; Pulse 88; Resp 18; Temp 98.7; Pulse Ox 98% ; ea 02:51 Body Mass Index 32.12 (77.11 kg, 154.94 cm) iw MDM: 02:58 Patient medically screened. tw4 05:12 Differential diagnosis: AAA, gastroesophageal reflux disease, GI Bleed. Data reviewed: tw4 vital signs, nurses notes. Data interpreted: Pulse oximetry: Interpretation: normal. Counseling: I had a detailed discussion with the patient and/or guardian regarding: the historical points, exam findings, and any diagnostic results supporting the discharge/admit diagnosis, lab results, radiology results. Medical screen evaluation completed. [facility] emergency medical condition absent. Medication response: GI Cocktail relieved the patient's pain. The symptoms have resolved, Response to treatment: and as a result, I will discharge patient. Special discussion: Based on the history and exam findings, there is no indication for further emergent testing or inpatient evaluation. I discussed with the patient/guardian the need to see the surgical scrub technician for further evaluation of the symptoms. Special discussion: Based on the patient's Hx, exam, and Dx evaluation, there is no indication for emergent surgery or inpatient Tx. It is understood by the patient/guardian that if the Sx's persist or worsen they need to return immediately for re-evaluation. I discussed with the patient/guardian in detail that at this point there is no indication for admission to the hospital. It is understood, however, that if the symptoms persist or worsen the patient needs to return immediately for re-evaluation. 06/15 02:55 Order name: Basic Metabolic Panel; Complete Time: 04:55 06/15 04:55 Interpretation: Normal except: GLUC 198. 06/15 02:55 Order name: CBC with Diff; Complete Time: 04:55 06/15 04:55 Interpretation: Normal except: WBC 13.60; LYM% 9.6; BAYLEE% 83.1; NEUT A 11.3. 06/15 02:55 Order name: Hepatic Function; Complete Time: 04:55 06/15 04:56 Interpretation: Normal except: A/G 0.9; GLOB 4.1. 06/15 02:55 Order name: Lipase; Complete Time: 04:55 06/15 04:56 Interpretation: Within normal limits: LIP 190. 06/15 02:55 Order name: IV Saline Lock; Complete Time: 03:16 06/15 02:55 Order name: Labs collected and sent; Complete Time: 03:16 ea Administered Medications: 03:16 Drug: NS 0.9% 1000 ml Route: IV; Rate: 1 bolus; Site: right antecubital; ea 05:22 Follow up: Response: No adverse reaction; IV Status: Completed infusion; IV Intake: ea 1000ml 03:16 Drug: Zofran (Ondansetron) 4 mg Route: IVP; Site: right antecubital; ea 03:33 Follow up: Response: No adverse reaction ea 03:18 Drug: ProTONIX 40 mg Route: IVP; Site: right antecubital; ea 03:33 Follow up: Response: No adverse reaction ea 03:18 Drug: GI Cocktail without - (Maalox Suspension 30 ml, Lidocaine Liquid 2 % 15 ea ml) Route: PO; 03:34 Follow up: Response: No adverse reaction ea 03:42 Drug: morphine 4 mg Route: IVP; Site: right antecubital; ea 04:04 Follow up: Response: No adverse reaction ea Disposition: 06/15/20 05:06 Discharged to Home. Impression: Gastritis, unspecified, without bleeding. - Condition is Stable. - Discharge Instructions: Gastritis, Adult. - Prescriptions for Bentyl 20 mg Oral Tablet - take 1 tablet by ORAL route every 6 hours As needed; 20 tablet. Pepcid 20 mg Oral Tablet - take 1 tablet by ORAL route every 12 hours for 10 days; 20 tablet. Zofran 4 mg Oral Tablet - take 1 tablet by ORAL route every 12 hours As needed; 6 tablet. - Medication Reconciliation Form, Thank You Letter, Antibiotic Education, Prescription Opioid Use form. - Follow up: Private Physician; When: Upon discharge from the Emergency Department; Reason: Recheck today's complaints, Continuance of care, Re-evaluation by your physician. - Problem is new. - Symptoms have improved. Signatures: Dispatcher [employer] EDValentine Martin, RN RN Clare Branch RN RN Nico Coughlin MD MD tw4 Corrections: (The following items were deleted from the chart) 05:23 05:06 06/15/2020 05:06 Discharged to Home. Impression: Gastritis, unspecified, without ea bleeding. Condition is Stable. Forms are Medication Reconciliation Form, Thank You Letter, Antibiotic Education, Prescription Opioid Use. Follow up: Private Physician; When: Upon discharge from the Emergency Department; Reason: Recheck today's complaints, Continuance of care, Re-evaluation by your physician. Problem is new. Symptoms have improved. tw4
--- NOTE | 2020-06-15 05:07 | ER ---
Nurse's Notes [facility] Name: Effie Ferguson Age: 44 yrs Sex: Female : 1975 Arrival Date: 06/15/2020 Time: 02:25 Bed 14 Private MD: Diagnosis: Gastritis, unspecified, without bleeding Presentation: 06/15 02:51 Chief complaint: Patient states: mid abd pain radiating to LUQ and around her back iw since yesterday, worse today, +nausea, no vomiting. Coronavirus screen: At this time, the client does not indicate any symptoms associated with coronavirus-19. Ebola Screen: Patient negative for fever greater than or equal to 101.5 degrees Fahrenheit, and additional compatible Ebola Virus Disease symptoms Patient denies exposure to infectious person. Patient denies travel to an Ebola-affected area in the 21 days before illness onset. No symptoms or risks identified at this time. Initial Sepsis Screen: Does the patient meet any 2 criteria? No. Patient's initial sepsis screen is negative. Does the patient have a suspected source of infection? No. Patient's initial sepsis screen is negative. Risk Assessment: Do you want to hurt yourself or someone else? Patient reports no desire to harm self or others. Onset of symptoms was June 14, 2020. 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 - Social history:: Smoking status: Patient reports the use of cigarette tobacco products, smokes one-half pack cigarettes per day. Screenin:56 Abuse screen: Denies threats or abuse. Nutritional screening: No deficits noted. ea Tuberculosis screening: No symptoms or risk factors identified. Fall Risk None identified. Assessment: 03:17 General: Appears uncomfortable. Pain: Complains of pain in abdomen Pain radiates to ea back. Neuro: Level of Consciousness is awake, alert, obeys commands, Oriented to person, place, time. Cardiovascular: Patient's skin is warm and dry. Respiratory: Airway is patent Respiratory effort is even, unlabored, Respiratory pattern is regular, symmetrical. GI: Abdomen is non-distended. Derm: Skin is pink, warm \T\ dry. 05:20 Reassessment: Patient and/or family updated on plan of care and expected duration. Pain ea level reassessed. Patient is alert, oriented x 3, equal unlabored respirations, skin warm/dry/pink. Discharge instruction given to patient verbalized the understanding of instruction. Pt left ED ambulatory tolerating well. Pt awaiting in parking lot. Vital Signs: 02:51 BP 115 / 57; Pulse 100; Resp 16; Temp 98.9; Pulse Ox 99% on R/A; Weight 77.11 kg; iw Height 5 ft. 1 in. (154.94 cm); Pain 10/10; 05:15 BP 110 / 60; Pulse 88; Resp 18; Temp 98.7; Pulse Ox 98% ; ea 02:51 Body Mass Index 32.12 (77.11 kg, 154.94 cm) iw ED Course: 02:25 Patient arrived in ED. bp1 02:54 Triage completed. iw 02:55 Clare Hebert, LISBETH is Primary Nurse. ea 02:56 Patient has correct armband on for positive identification. Bed in low position. Call ea light in reach. Side rails up X2. 02:56 Arm band placed on right wrist. Patient placed in an exam room, on a stretcher, on ea pulse oximetry. 02:58 Nico Romero MD is Attending Physician. tw4 03:16 Inserted saline lock: 20 gauge in right antecubital area, using aseptic technique. ea Blood collected. 05:21 No provider procedures requiring assistance completed. IV discontinued, intact, ea bleeding controlled, No redness/swelling at site. Pressure dressing applied. Administered Medications: 03:16 Drug: NS 0.9% 1000 ml Route: IV; Rate: 1 bolus; Site: right antecubital; ea 05:22 Follow up: Response: No adverse reaction; IV Status: Completed infusion; IV Intake: ea 1000ml 03:16 Drug: Zofran (Ondansetron) 4 mg Route: IVP; Site: right antecubital; ea 03:33 Follow up: Response: No adverse reaction ea 03:18 Drug: ProTONIX 40 mg Route: IVP; Site: right antecubital; ea 03:33 Follow up: Response: No adverse reaction ea 03:18 Drug: GI Cocktail without - (Maalox Suspension 30 ml, Lidocaine Liquid 2 % 15 ea ml) Route: PO; 03:34 Follow up: Response: No adverse reaction ea 03:42 Drug: morphine 4 mg Route: IVP; Site: right antecubital; ea 04:04 Follow up: Response: No adverse reaction ea Intake: 05:22 IV: 1000ml; Total: 1000ml. ea Outcome: 05:06 Discharge ordered by twKushal 05:21 Discharged to home ambulatory, with family. ea 05:21 Condition: stable 05:21 Discharge instructions given to patient, Instructed on discharge instructions, follow up and referral plans. medication usage, Demonstrated understanding of instructions, follow-up care, medications, Prescriptions given X 3. 05:23 Patient left the ED. ea Signatures: Valentine Lan, RN Clare Byrd RN Nico Gonsalez ea, MD MD tw4 Araceli Sampson [facility] Corrections: (The following items were deleted from the chart) 02:54 02:51 Pulse 100bpm; Resp 16bpm; Pulse Ox 99% RA; Temp 98.9F; 77.11 kg; Height 5 ft. 1 iw in.; BMI: 32.1; Pain 10/10; iw
[2020-06-15 05:38] VITALS: BP 110/60; TEMP 98.7; O2SAT 98
== END 2020-06-15 05:23 | disposition home or self-care (01) ==
LOC: ER 02:23
DX: K29.70 Gastritis, unspecified, without bleeding (principal); E11.9 Type 2 diabetes mellitus without complications; I10 Essential (primary) hypertension; F17.210 Nicotine dependence, cigarettes, uncomplicated
CPT/HCPCS: 36415; 80048; 80076; 83690; 85025; 96361; 96374; 96375; 99284; C9113; J2405; J7030

== ENCOUNTER 2021-08-16 14:30 | Emergency (ER) | payer SELFPAY ==
--- OUTSIDE RECORDS SUMMARY | 2021-08-16 14:32 | XMS REPORT | Continuity of Care Document ---
:1975 Author Organization [facility] t Address [address] [place] [address] Dr. Sampson [address] [place] [id number] Care Team Providers Name Role Phone Unavailable Unavailable Unavailable Problems This patient has no known problems. Allergies, Adverse Reactions, Alerts This patient has no known allergies or adverse reactions. Medications This patient has no known medications. Procedures This patient has no known procedures. Results Test Description Test Time Test Comments Results Result Comments Source LIPASE 2021-04-12 04:11:20 Test Item Value Reference Range Interpretation Comme nts LIPASE (test code = 2058) 18 U/L 13-60 [id number] 04:11:20 Test Item Value Reference Range Interpretation Comments AMYLASE (test code = 41 U/L 28-100 UNLESS OTHERWISE 2205) INDICATED, ALL TESTING PERFORMED [facility] [address] [place] [address] 4 LABORATORY DIRE CTOR: Adam LEONARD. CLIA NUMBER [id number] [place] [id number] HEMOGLOBIN [id number] 05:11:03 Test Item Value Reference Range Interpretation Comments HEMOGLOBIN A1c (test 8.2 % 4.2-5.6 H [employer] DIABETES code = 54490) ASSOCIATION IDELINES FOR HGB A1C: PREDIABETES/INC REASED RISK . . . . . . . 5.7 -6.4% DIAGNOSIS OF D IABETES . . . . . . . . . > =6.5% WITH CONFIRM ATION OR APPROPRIATE SYM PTOMS NOTE: ASSAY MAY BE AFFECTED BY HEMOGLOBINOP ATHIES (SICKLE MACHELLE L ANEMIA, S-C DISEASE, OTHERS ) OR ARTIFICIALLY LO WERED BY DECREASED RED C ELL SURVIVAL (HEMOLYTIC ANEM IAS, BLOOD LOSS, ETC.) . CONSIDER ALTERNATE TESTI NG OR LABORATORY CONS ULTATION. COMPREHENSIVE METABOLIC [id number] 04:59:22 Test Item Value Reference Range Interpretation Comments GLUCOSE (test code = 216 MG/DL 70-99 H 2216) BUN (test code = 7 MG/DL 6-20 2207) CREATININE (test 0.35 MG/DL 0.60-1.30 L code = 221) eGFR (2020 CKD-EPI) 127 >60 (test code = 08418) ML/MIN/1.73 CALC BUN/CREAT (test 20 RATIO 6-28 code = 223) SODIUM (test code = 134 MEQ/L 387-055 3027) POTASSIUM (test code 4.0 MEQ/L 3.5-5.4 = 2227) CHLORIDE (test code 100 MEQ/L 95-107 = 2214) CARBON DIOXIDE (test 21 MEQ/L 19-31 code = 2205) CALCIUM (test code = 8.8 MG/DL 8.5-10.5 2208) PROTEIN, TOTAL (test 6.5 G/DL 6.1-8.3 code = 2228) ALBUMIN (test code = 3.7 G/DL 3.5-5.2 2200) CALC GLOBULIN (test 2.8 G/DL 1.9-3.7 code = 2239) CALC A/G RATIO (test 1.3 RATIO 1.0-2.6 code = 223) BILIRUBIN, TOTAL <0.2 MG/DL See_Comment [Automated message] (test code = 220) The syste m which generated this result transmit [place] reference range : <=1.2. The refe rence range was not u sed to interpret th is result as normal/abnormal . ALKALINE PHOSPHATASE 111 U/L 40-120 (test code = 220) AST (test code = 23 U/L 9-40 2217) ALT (test code = <5 U/L 5-40 L 2218) LIPID [id number] 04:59:22 Test Item Value Reference Range Interpretation Comments CHOLESTEROL (test 539 MG/DL <200 H code = 2210) TRIGLYCERIDES (test 2237 MG/DL <150 H SPE CIMEN LIPEMIC code = 2232) RESULTS RECHECK ED AND VERIFIED HDL CHOLESTEROL 25 MG/DL >39 L (test code = 2220) CALC LDL CHOL (test (NOTE) MG/DL <100 UNABLE T O CALCULATE A code = 2237) VALID LDL LEN STEROL WHEN THE TRIGLYCERIDEVAL UE IS GREATER THAN 40 0 MG/DL. NOTE: CALCULATE D LDL IS BASED ON JOSTIN -MORAN METHOD WHICHINC LUDES ADJUSTABLE TRIGLYCERIDE:VL DL CHOLESTEROL RAT IO.THIS FACTOR VARIES B Y MEASURED TRIGLY CERIDE AND NON-HDLCHOL ESTEROL CONCENTRATIONS WITH INCREASED CALCU LATED LDL SEENIN HIGH ER TRIGLYCERIDE OR LOWER NON-HDL SPECIME NS. FOR MOREINFORMATION , SEE CLIENT ANNOUNCE MENT AT [email or web address] CalcLDL-C RISK RATIO LDL/HDL 7.20 RATIO <3.22 H (test code = 2238) UNABLE TO CALCULATE UNLESS OTHERW ISE INDICATED, ALL TESTING PERFORMED [facility] [employer] [address] [address] 4 LABORATORY DI ADRIANA: Rolly SAUCEDALARRY WHITEHEAD Napoleon [id number] CAP ACCREDITATION N O. [id number] CBC W/AUTO DIFF WITH [id number] 04:14:18 Test Item Value Reference Range Interpretation Comments WBC (test code = 9.8 K/UL 3.5-11.0 1001) RBC (test code = 4.76 M/UL 3.80-5.40 1002) HEMOGLOBIN (test code 14.7 G/DL 11.5-15.5 = 1003) HEMATOCRIT (test code 41.4 % 34.0-45.0 = 1004) MCV (test code = 87.0 fL 80.0-99.0 1005) MCH (test code = 30.9 PG 25.0-33.0 1006) MCHC (test code = 35.5 G/DL 31.0-36.0 1007) RDW (test code = 12.8 % 11.5-15.0 1038) NEUTROPHILS (test 66.8 % code = 1008) LYMPHOCYTES (test 25.6 % code = 1010) MONOCYTES (test code 5.3 % = 1011) EOSINOPHILS (test 1.5 % code = 1012) BASOPHILS (test code 0.2 % = 1013) IMMATURE GRANULOCYTES 0.6 % (test code = 1036) NUCLEATED RBCS (test 0.0 /100 See_Comment [Autom ated code = 1065) WBC'S message] The sy stem which generated this result transmitted reference range : 0.0. The refere nce range was not u sed to interpret th is result as normal/abnormal . PLATELET COUNT (test 275 K/UL 130-400 code = 1015) ABSOLUTE NEUTROPHILS 6.56 K/UL 1.50-7.50 (test code = 1066) ABSOLUTE LYMPHOCYTES 2.52 K/UL 1.00-4.00 (test code = 1067) ABSOLUTE MONOCYTES 0.52 K/UL 0.20-1.00 (test code = 1068) ABSOLUTE EOSINOPHILS 0.15 K/UL 0.00-0.50 (test code = 1040) ABSOLUTE BASOPHILS 0.02 K/UL 0.00-0.20 (test code = 1069) ABS IMMATURE 0.06 K/UL 0.00-0.10 GRANULOCYTES (test code = 1020) ABS NUCLEATED RBCS 0.00 K/UL 0.00-0.11 (test code = 03362)
[2021-08-16 15:37] LABS: Urine Blood Negative (Negative); Urine Glucose 2+ (Negative); Urine Protein 1+ (Negative); Urine Specific Gravity >=1.030 (1.005-1.030); Urine pH 5.5 (5.0-7.0)
[2021-08-16 15:53] LABS: Absolute Lymphocytes (CBC) 2.4 K/uL (0.7-4.9); Hematocrit 41.8 % (36.0-45.0); Lymphocytes % 25.8 % (15.3-44.8); MPV 7.8 fL (7.6-11.3); RBC Red Blood Cell Count 4.74 M/uL (3.86-4.86)
[2021-08-16 15:54] LABS: Protime INR 0.96
[2021-08-16 15:59] LABS: Barbiturates NEGATIVE (NEGATIVE); Benzodiazepines NEGATIVE (NEGATIVE); Cocaine NEGATIVE (NEGATIVE); METHAMPHETAM NEGATIVE (NEGATIVE); Methadone NEGATIVE (NEGATIVE); Opiates NEGATIVE (NEGATIVE); Phencyclidine NEGATIVE (NEGATIVE); THC Cannibis NEGATIVE (NEGATIVE)
[2021-08-16 16:09] LABS: ALT/SGPT 37 U/L (12-78); AST/SGOT 18 U/L (15-37); Albumin 3.8 g/dL (3.4-5.0); Alkaline Phosphatase 78 U/L (45-117); BUN Blood Urea Nitrogen 10 mg/dL (7-18); Bicarbonate 25 mmol/L (21-32); Bilirubin Total 0.3 mg/dL (0.2-1.0); Glomerular Filtration Rate 100 ml/min (=/>90); Glucose Level 227 mg/dL (74-106); Magnesium 1.7 mg/dL (1.8-2.4); NT PRO-BNP 25 pg/mL (<125); Potassium 3.5 mmol/L (3.5-5.1); Sodium Level 138 mmol/L (136-145); Troponin High Sensitivity 5.5 pg/mL (<58.9)
[2021-08-16 16:17] LABS: Bilirubin Direct < 0.1 mg/dL (0-0.2)
--- NOTE | 2021-08-16 17:03 | RAD REPORT ---
EXAM DESCRIPTION: RAD - Chest Single View - 08/16/2021 4:18 pm CLINICAL HISTORY: CHEST PAIN COMPARISON: Portable 12/03/2019 TECHNIQUE: AP portable chest image was obtained 08/16/2021 4:18 pm . FINDINGS: Lungs are clear. No meghna mass or lymphadenopathy. No failure or volume overload findings. Heart and vasculature are normal. No measurable pleural effusion and no pneumothorax. No acute bony a bnormality seen. No acute aortic findings suspected. IMPRESSION: No acute cardiopulmonary process. No significant change from comparison study.
[2021-08-16] MEDS ORDERED: MAGNESIUM SULFATE 1 gm IVPB 1 GM/100 ML BAG IV ONE (18:18)
[2021-08-16] MEDS ORDERED: NA CHLORIDE 0.9% 500 ML ONE (18:34)
[2021-08-16] MEDS ORDERED: ALBUTEROL 2.5 MG/3 ML NEB SOL ONE (18:34)
--- NOTE | 2021-08-16 19:21 | RAD REPORT ---
EXAM DESCRIPTION: CT - Head Brain Wo Cont - 08/16/2021 6:57 pm CLINICAL HISTORY: Hypertensive emergency COMPARISON: <Comparisons> TECHNIQUE: Axial 5 mm thick images of the head were obtained without IV contrast. All CT scans are performed using dose optimization technique as appropriate and may include automated exposure control or mA/KV adjustment according to patient size. FINDINGS: No intracranial hemorrhage, mass, edema or shift of mid-line structures. No acute infarcti on changes seen. No abnormal extra-axial fluid collections. Ventricles are normal. Physiologic basal ganglia calcifications are present. Mastoid air cells and visualized portions of the paranasal sinuses are clear. No acute bony findings. IMPRESSION: Negative non-contrast CT head examination.
[2021-08-16] MEDS ORDERED: ASPIRIN 81 MG CHEWABLE TABLET ONE (20:10)
--- NOTE | 2021-08-16 20:54 | ER ---
Nurse's Notes [facility] Name: Effie Crouch Age: 45 yrs Sex: Female : 1975 Arrival Date: 08/16/2021 Time: 14:30 Bed 14 Private MD: Diagnosis: Chest pain, unspecified;Hypertensive heart disease without heart failure;Shortness of breath Presentation: 08/16 15:13 Chief complaint: Patient states: I went to see my PCP and my B/p was 189/101. They gave jb4 me medication and now I feel weird. I am having chest pain and tightness that started this morning. Coronavirus screen: At this time, the client does not indicate any symptoms associated with coronavirus-19. Ebola Screen: No symptoms or risks identified at this time. Onset of symptoms was August 16, 2021. Transition of care: patient was not received from another setting of care. 15:13 Method Of Arrival: Ambulatory jb4 15:20 Initial Sepsis Screen: Does the patient meet any 2 criteria? No. Patient's initial jb4 sepsis screen is negative. Does the patient have a suspected source of infection? No. Patient's initial sepsis screen is negative. Risk Assessment: Do you want to hurt yourself or someone else? Patient reports no desire to harm self or others. 15:20 Acuity: MARNI 3 jb4 Triage Assessment: 15:16 General: Appears in no apparent distress. comfortable, Behavior is calm, cooperative, jb4 appropriate for age. Pain: Complains of pain in mid-sternal area Pain does not radiate. Pain currently is 6 out of 10 on a pain scale. Quality of pain is described as stabbing. Neuro: Level of Consciousness is awake, alert, obeys commands, Oriented to person, place, time, situation. Cardiovascular: Patient's skin is warm and dry. Respiratory: Airway is patent Respiratory effort is even, unlabored, Respiratory pattern is regular, symmetrical. Derm: Skin is intact, Skin is pink, warm \T\ dry. Musculoskeletal: Circulation, motion, and sensation intact. Range of motion: intact in all extremities. 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 - Social history:: Smoking status: Patient reports the use of cigarette tobacco products, smokes one-half pack cigarettes per day. Screenin:38 Abuse screen: Denies threats or abuse. Denies injuries from another. Nutritional ld1 screening: No deficits noted. Tuberculosis screening: No symptoms or risk factors identified. Fall Risk None identified. Assessment: 18:38 General: Appears in no apparent distress. comfortable, Behavior is calm, cooperative, ld1 appropriate for age. Pain: Denies pain. Neuro: Level of Consciousness is awake, alert, obeys commands, Oriented to person, place, time, situation, Appropriate for age. Cardiovascular: Capillary refill < 3 seconds Patient's skin is warm and dry. Rhythm is sinus rhythm. Respiratory: Reports shortness of breath at rest on exertion Airway is patent Respiratory effort is even, unlabored. GI: Abdomen is round non-distended. : No signs and/or symptoms were reported regarding the genitourinary system. EENT: No signs and/or symptoms were reported regarding the EENT system. Derm: No signs and/or symptoms reported regarding the dermatologic system. Musculoskeletal: No signs and/or symptoms reported regarding the musculoskeletal system. 21:07 Reassessment: Patient appears in no apparent distress at this time. Patient and/or ld1 family updated on plan of care and expected duration. Pain level reassessed. Patient is alert, oriented x 3, equal unlabored respirations, skin warm/dry/pink. Vital Signs: 15:16 BP 157 / 91; Pulse 103; Resp 18; Temp 97.4(TE); Pulse Ox 96% on R/A; Weight 76.2 kg jb4 (R); Height 5 ft. 1 in. (154.94 cm) (R); Pain 6/10; 18:38 BP 146 / 94; Pulse 83; Resp 18; Pulse Ox 100% on Nebulizer Mask; ld1 20:38 BP 155 / 85; Pulse 83; Resp 18; Pulse Ox 99% on R/A; ld1 15:16 Body Mass Index 31.74 (76.20 kg, 154.94 cm) [facility] ED Course: 14:30 Patient arrived in ED. am2 15:15 Bairon Newberry PA is PHCP. cp 15:15 Avelino Flores MD is Attending Physician. cp 15:16 Arm band placed on right wrist. jb4 15:21 Triage completed. jb4 15:31 Inserted saline lock: 20 gauge in right antecubital area, using aseptic technique. mb7 Blood collected. 16:20 XRAY Chest (1 view) In Process Unspecified. EDMS 18:09 Maritza Leone, RN is Primary Nurse. ld1 18:38 Patient has correct armband on for positive identification. Placed in gown. Bed in low ld1 position. Call light in reach. Side rails up X2. mortarman on. Pulse ox on. NIBP on. Door closed. Noise minimized. Warm blanket given. 18:38 No provider procedures requiring assistance completed. Patient maintains SpO2 ld1 saturation greater than 95% on room air. 18:59 CT Head Brain wo Cont In Process Unspecified. EDMS 19:49 Troponin High Sensitivity: repeat \T\1900 Sent. ld1 21:07 IV discontinued, intact, bleeding controlled, No redness/swelling at site. ld1 Administered Medications: 18:14 CANCELLED (Physician Discretion): Ativan (LORazepam) 0.5 mg IVP once cp 18:37 Drug: Magnesium Sulfate 1 grams Route: IVPB; Infused Over: 1 hrs; Site: right ld1 antecubital; 18:37 Drug: NS 0.9% 500 ml Route: IV; Rate: bolus; Site: right antecubital; ld1 18:37 Drug: Albuterol 2.5 mg Route: Inhalation; ld1 20:06 Drug: Aspirin Chewable Tablet 324 mg Route: PO; ld1 Medication: 18:38 VIS not applicable for this client. ld1 Outcome: 20:53 Discharge ordered by . cp 21:07 Discharged to home ambulatory. ld1 21:07 Condition: stable 21:07 Discharge instructions given to patient, Instructed on discharge instructions, follow up and referral plans. medication usage, Demonstrated understanding of instructions, follow-up care, medications, Prescriptions given X 1. 21:07 Patient left the ED. ld1 Signatures: Dispatcher [employer] EDNM Bairon Newberry PA PA cp Bryson, James, RN RN jb4 Maria Elena Smalls am2 Maritza Leone RN RN ld1 Breneman, Deirdre mb7
--- NOTE | 2021-08-16 20:54 | EDPHYS ---
Physician Documentation [facility] Name: Effie Crouch Age: 45 yrs Sex: Female : 1975 Arrival Date: 08/16/2021 Time: 14:30 Bed 14 Private MD: ED Physician Avelino Flores HPI: 08/16 15:15 This 45 yrs old Female presents to ER via Ambulatory with complaints of High cp Blood Pressure, Chest Tightness, Shortness Of Breath. 15:15 The patient has elevated blood pressure and discovered this at a physician's office, cp and sent to the emergency department for evaluation. 15:15 Onset: The symptoms/episode began/occurred today. Associated signs and symptoms: cp Pertinent positives: headache, Pertinent negatives: visual changes, vomiting, chest tightness, shortness of breath. 15:15 Severity of symptoms: At its worst the blood pressure was 189 mm Hg, in the emergency cp department the blood pressure is improved, 157 mm Hg. 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 - Social history:: Smoking status: Patient reports the use of cigarette tobacco products, smokes one-half pack cigarettes per day. ROS: 15:20 Constitutional: Negative for body aches, chills, fever, poor PO intake. cp 15:20 Eyes: Negative for injury, pain, redness, and discharge. cp 15:20 Cardiovascular: Positive for chest pain, Negative for edema, palpitations. 15:20 Respiratory: Positive for shortness of breath, Negative for cough, wheezing. 15:20 Abdomen/GI: Negative for abdominal pain, vomiting, diarrhea, constipation. 15:20 Neuro: Positive for headache, Negative for altered mental status, dizziness, numbness, syncope, weakness. Exam: 15:22 ECG was reviewed by the Attending Physician. cp 15:25 Constitutional: The patient appears in no acute distress, alert, awake, cp non-diaphoretic, non-toxic, well developed, well nourished, overweight 15:25 Head/Face: Normocephalic, atraumatic. cp 15:25 Eyes: Periorbital structures: appear normal, Conjunctiva: normal, no exudate, no injection, Sclera: no appreciated abnormality, Lids and lashes: appear normal, bilaterally. 15:25 ENT: External ear(s): are unremarkable, Nose: is normal, Mouth: Lips: moist, Oral mucosa: pink and intact, moist, Posterior pharynx: Airway: no evidence of obstruction, patent. 15:25 Neck: ROM/movement: is normal, is supple, without pain, no range of motions limitations, no nuchal rigidity. 15:25 Chest/axilla: Inspection: normal. 15:25 Cardiovascular: Rate: tachycardic, Rhythm: regular, Edema: is not appreciated, JVD: is not appreciated. 15:25 Respiratory: the patient does not display signs of respiratory distress, Respirations: normal, no use of accessory muscles, no retractions, labored breathing, is not present, Breath sounds: are clear throughout, no decreased breath sounds, no stridor, no wheezing. 15:25 Abdomen/GI: Inspection: abdomen appears normal, Palpation: abdomen is soft and non-tender, in all quadrants. 15:25 Back: pain, is absent, ROM is normal. 15:25 Neuro: Orientation: to person, place \T\ time. Mentation: is normal, Cerebellar function: is grossly normal, Motor: moves all fours, strength is normal, Sensation: is normal. Vital Signs: 15:16 BP 157 / 91; Pulse 103; Resp 18; Temp 97.4(TE); Pulse Ox 96% on R/A; Weight 76.2 kg jb4 (R); Height 5 ft. 1 in. (154.94 cm) (R); Pain 6/10; 18:38 BP 146 / 94; Pulse 83; Resp 18; Pulse Ox 100% on Nebulizer Mask; ld1 20:38 BP 155 / 85; Pulse 83; Resp 18; Pulse Ox 99% on R/A; ld1 15:16 Body Mass Index 31.74 (76.20 kg, 154.94 cm) jb4 MDM: 16:00 Differential diagnosis: hypertensive crisis, Malignant HTN, CVA, intracerebral cp hemorrhage, acute ND. 17:40 Patient medically screened. cp 20:45 Data reviewed: vital signs, nurses notes, lab test result(s), EKG, radiologic studies, cp plain films. 20:45 Test interpretation: by ED physician or midlevel provider: ECG, plain radiologic cp studies. 20:52 Counseling: I had a detailed discussion with the patient and/or guardian regarding: the cp historical points, exam findings, and any diagnostic results supporting the discharge/admit diagnosis, the presence of at least one elevated blood pressure reading (>120/80) during this emergency department visit, lab results, radiology results, the need for outpatient follow up, for definitive care, a family practitioner, to return to the emergency department if symptoms worsen or persist or if there are any questions or concerns that arise at home. Response to treatment: the patient's symptoms have markedly improved after treatment, VSS. Blood pressure improved. Troponin negative and EKG negative for STEMI. Will discharge to home for continued monitoring. 08/16 15:16 Order name: Basic Metabolic Panel; Complete Time: 17:42 cp 08/16 15:16 Order name: CBC with Diff; Complete Time: 17:42 cp 08/16 15:16 Order name: LFT's; Complete Time: 17:42 cp 08/16 15:16 Order name: Magnesium; Complete Time: 17:42 cp 08/16 15:16 Order name: NT PRO-BNP; Complete Time: 17:42 cp 08/16 15:16 Order name: PT-INR; Complete Time: 17:42 cp 08/16 15:16 Order name: Troponin HS; Complete Time: 17:42 cp 08/16 15:16 Order name: XRAY Chest (1 view); Complete Time: 17:42 cp 08/16 15:16 Order name: UDS; Complete Time: 17:42 cp 08/16 15:37 Order name: Urine Dipstick-Ancillary; Complete Time: 17:42 EDMS 08/16 15:42 Order name: Urine --Ancillary (enter results); Complete Time: 17:42 eb 08/16 18:13 Order name: CT Head Brain wo Cont; Complete Time: 19:25 cp 08/16 19:26 Interpretation: Report reviewed. cp 08/16 18:50 Order name: Troponin High Sensitivity: repeat \T\1900; Complete Time: 20:39 cp 08/16 15:16 Order name: EKG; Complete Time: 15:17 cp 08/16 15:16 Order name: Cardiac monitoring; Complete Time: 18:38 cp 08/16 15:16 Order name: EKG - Nurse/Tech; Complete Time: 18:38 cp 08/16 15:16 Order name: IV Saline Lock; Complete Time: 16:15 cp 08/16 15:16 Order name: Labs collected and sent; Complete Time: 16:15 cp 08/16 15:16 Order name: O2 Per Protocol; Complete Time: 18:09 cp 08/16 15:16 Order name: O2 Sat Monitoring; Complete Time: 18:09 cp 08/16 15:16 Order name: Urine Dipstick-Ancillary (obtain specimen); Complete Time: 16:15 cp 08/16 15:16 Order name: Urine Test (obtain specimen); Complete Time: 16:15 cp EC:22 Rate is 99 beats/min. Rhythm is regular. MN interval is normal. QRS interval is normal. cp QT interval is normal. T waves are Inverted in lead aVR. Interpreted by me. Reviewed by me. Administered Medications: 18:14 CANCELLED (Physician Discretion): Ativan (LORazepam) 0.5 mg IVP once cp 18:37 Drug: Magnesium Sulfate 1 grams Route: IVPB; Infused Over: 1 hrs; Site: right ld1 antecubital; 18:37 Drug: NS 0.9% 500 ml Route: IV; Rate: bolus; Site: right antecubital; ld1 18:37 Drug: Albuterol 2.5 mg Route: Inhalation; ld1 20:06 Drug: Aspirin Chewable Tablet 324 mg Route: PO; ld1 Disposition: 17:23 Co-signature as Attending Physician, Avelino Floers MD. rn Disposition Summary: 08/16/21 20:53 Discharge Ordered Location: Home cp Problem: new cp Symptoms: have improved cp Condition: Stable cp Diagnosis - Chest pain, unspecified cp - Hypertensive heart disease without heart failure cp - Shortness of breath cp Followup: cp - With: Private Physician - When: 2 - 3 days - Reason: Recheck today's complaints Discharge Instructions: - Discharge Summary Sheet cp - Nonspecific Chest Pain, Adult cp - Hypertension, Adult cp - Aspirin and Your Heart cp - Form - Blood Pressure Record Sheet cp - How to Take Your Blood Pressure cp Forms: - Medication Reconciliation Form cp - Thank You Letter cp - Antibiotic Education cp - Prescription Opioid Use cp Prescriptions: - albuterol sulfate 90 mcg/actuation Inhalation HFA aerosol inhaler - inhale 1 puff by INHALATION route every 4-6 hours; 1 Inhaler; Refills: 0, cp Product Selection Permitted Signatures: Dispatcher [employer] EDAvelino Kauffman MD MD rn Bairon Newberry PA PA cp Steve Valdes RN RN jb4 Maritza Leone RN RN ld1 Corrections: (The following items were deleted from the chart) 18:14 18:14 Ativan (LORazepam) 0.5 mg IVP once ordered. cp cp
[2021-08-16 21:28] VITALS: TEMP 97.4
[2021-08-16 21:32] VITALS: BP 155/85; O2SAT 99
--- NOTE | 2021-08-17 17:29 | EKG ---
Test Date: 2021-08-16 Test Time: 15:17:57 Database Coordinator: PATRICK MEASUREMENT RESULTS: Intervals: Rate: 99 IA: 146 QRSD: 72 QT: 340 QTc: 436 [place]: P: 49 IA: 146 QRS: 22 T: 53 INTERPRETIVE STATEMENTS: Normal sinus rhythm Anteroseptal infarct, age undetermined Abnormal ECG No previous ECG available for comparison Electronically Signed On 08-17-21 17:27:17 CDT by Randy Zee
== END 2021-08-16 21:07 | disposition home or self-care (01) ==
LOC: ER 14:30
DX: I11.9 Hypertensive heart disease without heart failure (principal); R06.02 Shortness of breath; I10 Essential (primary) hypertension; E11.9 Type 2 diabetes mellitus without complications; F17.210 Nicotine dependence, cigarettes, uncomplicated
CPT/HCPCS: 36415; 70450; 71045; 80048; 80076; 80307; 81003; 81025; 83735; 83880; 84484; 85025; 85610; 93005; 96374; 99285; J3475; J7040

== ENCOUNTER 2022-01-02 20:05 | Inpatient (IN) | payer SELFPAY ==
--- OUTSIDE RECORDS SUMMARY | 2022-01-02 20:15 | XMS REPORT | Continuity of Care Document ---
:1975 Author Organization [facility] t Address [address] [place] [address] Care Team Providers Name Role Phone Maria Victoria Mckenna Primary Care Physician [phone] Sury Choudhary Attending Clinician Maria Victoria Mckenna Attending Clinician [phone] SURY SANCHES Attending Clinician Unavailable Doctor Unassigned, [place] Attending Clinician Unavailable MARIA VICTORIA BEAN Attending Clinician Unavailable Payers Payer Name Policy Type Policy Number Effective Date Expiration Date S ource Problems Condition Condition Condition Status Onset Resolution Last Treating Co mments Source Name Details Category Date Date Treatment Clinician Date History of History of Disease Active U nivers herpes herpes 6-24 ity of genitalis genitalis 00:00: [facility] Branch Encounter Encounter Disease Active Uni vers for for 108 ity of surveillan [place] of 00 Medical contracept contracept Br anch chalino, chalino, unspecifie unspecifie d d contracept contracept desean desean History of History of Disease Active U nivers hysterecto hysterecto -08 it y of my my 00:00: [place] 00 [facility] Branch Vaginal Vaginal Disease Active 2021-0 Univers itching itching 1-08 ity of 00:00: [place] 00 [facility] Branch History of History of Disease Active U nivers hypertensi hypertensi 1-08 it y of on on 00:00: [place] [facility] Family Family Disease Active Univers history of history of 108 it y of diabetes diabetes 00:00: [place] mellitus mellitus 00 Medica l Branch Class 1 Class 1 Disease Active Univers obesity obesity 08 ity of due to due to 00:00: [place] excess excess 00 Medical calories calories Branch with body with body mass index mass index (BMI) of (BMI) of 32.0 to 32.0 to 32.9 in 32.9 in adult, adult, unspecifie unspecifie d whether d whether serious serious comorbidit comorbidit y present y present Well woman Well woman Disease Active 2018-02 U nivsaroj exam exam 2-12 ity of 00:00: [place] 00 Medical Branch S/P S/P Disease Active Univers KEILA-BSO KEILA-BSO 5-19 ity of 00:00: [place] [facility] Postoperat Postoperat Disease Active U nivers desean state desean state 5-18 ity of 00:00: [place] [facility] Symptomati Symptomati Disease Active U nivers c anemia c anemia -19 ity of 00:00: [place] [facility] ASCUS with ASCUS with Disease Active 2015-02 U nivers positive positive 1-02 ity of high risk high risk 00:[place] HPV 00 [place] cervical cervical Branch Herpes, Herpes, Disease Active 2015-02 Univers vulvar vulvar 0-07 ity of 00:00: [place] [facility] Endometrio Endometrio Disease Active 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 colpo 05/31/2014- negative bx#1 FU Pap ASCUScolp o 12/26/2015 BMI BMI Disease Active Overview: Univer s 32.0-32.9, 32.0-32.9, 03-23 Formattin ity of adult adult 00:00: g of this [place] 00 note Medical might be Branch different from the original. ICD10 Diagnosis Term Warp Tension Tester Utility History of History of Disease Active U nivers tubal tubal 03-23 ity of ligation ligation 00:00: [place] 00 [facility] Rubella Rubella Disease Active Overview: Univ ers immune immune 03-23 Formattin ity of status not status not 00:00: g of this [place] known known 00 note Medical might be Branch different from the original. Post BTL Diabetes Diabetes Disease Active Unive rs 03-23 ity of 00:00: [place] 00 [facility] Allergies, Adverse Reactions, Alerts This patient has no known allergies or adverse reactions. Social History Social Habit Start Date Stop Date Quantity Comments Source History of tobacco Cigarette Smoker University of use [facility] Alcohol intake 2021-08-16 2021-08-16 0 /d University of 00:00:00 00:00:00 [facility] Cigarettes smoked 2019-02-03 2019-02-03 Univers ity of current (pack per 00:00:00 00:00:00 ) - Reported Branch Tobacco use and 2019-02-03 2019-02-03 Smokeless Universit y of exposure 00:00:00 00:00:00 tobacco [facility]user [facility] 2019-02-03 2019-02-03 University of pack-years 00:00:00 00:00:00 [facility] Tobacco Comment 2014-03-23 2014-03-23 smokes 7 x per Unive rsity of 00:00:00 00:00:00 day [facility] Sex [birth year] At [birth year] Universit y of 00:00:00 00:00:00 [facility] Smoking Status Start Date Stop Date Source Smokes tobacco daily 2019-02-03 00:00:00 Univers ity of [facility] Medications Ordered Filled Start Stop Current Ordering Indication Dosage Frequency Signature Comments Components Source Medication Medication Date Date Medication? Clinician (SIG) Name Name TAKE No TABLET BY 8-25 MOUTH TWICE 00:00: DAILY FOR 5 00 DAYS TAKE 1 2022-0 No TABLET BY 8-25 MOUTH TWICE 00:00: DAILY FOR 5 00 DAYS acyclovir 2021-0 Yes [id number] 400mg Take 1 Univers 400 mg 8-18 tablet by ity of tablet 00:00: mouth in [place] 00 the Medical morning Branch and 1 tablet in the evening. lisinopril 2-0 No 1mg 5 mg tablet 09-12 00:00: 00 lisinopril 2-0 No 1mg 5 mg tablet 09-12 00:00: 00 ondansetron 2-0 No 1mg 4 mg 7-08 disintegrat 00:00: ing tablet 00 Dose 2-0 No Unknown 7-08 00:00: 00 Dose 2-0 No Unknown 7-08 00:00: 00 Dose 2-0 No Unknown 7-08 00:00: 00 ondansetron 2-0 No 1mg 4 mg 7-08 disintegrat 00:00: ing tablet 00 Dose 2-0 No Unknown 7-08 00:00: 00 Dose 2022-0 No Unknown 7-08 00:00: 00 Dose 2022-0 No Unknown 7-08 00:00: 00 ondansetron 2-0 No 1mg 4 mg 7-08 disintegrat 00:00: ing tablet 00 Dose 2-0 No Unknown 7-08 00:00: 00 Dose 2022-0 No Unknown 7-08 00:00: 00 Dose 2022-0 No Unknown 7-08 00:00: 00 Dose 2022-0 No Unknown 7-06 00:00: 00 Dose 2-0 No Unknown 7-06 00:00: 00 Dose 2022-0 No Unknown 7-06 00:00: 00 Victoza 2-0 No (18 3-Noah 0.6 6-15 mg/3 mg/0.1 mL 00:00: mL) (18 mg/3 00 mL) subcutaneou s pen injector ergocalcife 2-0 No 1(50,00 rol 6-15 0 unit) (vitamin 00:00: D2) 1,250 00 mcg (50,000 unit) capsule Victoza 2-0 No (18 3-Noah 0.6 6-15 mg/3 mg/0.1 mL 00:00: mL) (18 mg/3 00 mL) subcutaneou s pen injector ergocalcife 2022-0 No 1(50,00 rol 6-15 0 unit) (vitamin 00:00: D2) 1,250 00 mcg (50,000 unit) capsule Victoza 2022-0 No (18 3-Noah 0.6 6-15 mg/3 mg/0.1 mL 00:00: mL) (18 mg/3 00 mL) subcutaneou s pen injector ergocalcife 2022-0 No 1(50,00 rol 6-15 0 unit) (vitamin 00:00: D2) 1,250 00 mcg (50,000 unit) capsule Novolin 2022-0 No unit/mL 70/30 U-100 6-10 (70-30) Insulin 100 00:00: unit/mL 00 subcutaneou s suspension Novolin 2022-0 No unit/mL 70/30 U-100 6-10 (70-30) Insulin 100 00:00: unit/mL 00 subcutaneou s suspension lisinopril 2022-0 No 1mg 5 mg tablet 6-10 00:00: 00 metformin 2022-0 No 1mg 1,000 mg 6-10 tablet 00:00: 00 gabapentin 2022-0 No 1mg 300 mg 6-10 capsule 00:00: 00 Novolin 2022-0 No unit/mL 70/30 U-100 6-10 (70-30) Insulin 100 00:00: unit/mL 00 subcutaneou s suspension Novolin 2022-0 No unit/mL 70/30 U-100 6-10 (70-30) Insulin 100 00:00: unit/mL 00 subcutaneou s suspension lisinopril 2022-0 No 1mg 5 mg tablet 6-10 00:00: 00 metformin 2022-0 No 1mg 1,000 mg 6-10 tablet 00:00: 00 gabapentin 2022-0 No 1mg 300 mg 6-10 capsule 00:00: 00 Novolin 2022-0 No unit/mL 70/30 U-100 6-10 (70-30) Insulin 100 00:00: unit/mL 00 subcutaneou s suspension lisinopril 2022-0 No 1mg 5 mg tablet 6-10 00:00: 00 metformin 2022-0 No 1mg 1,000 mg 6-10 tablet 00:00: 00 gabapentin 2022-0 No 1mg 300 mg 6-10 capsule 00:00: 00 Novolin 2022-0 No unit/mL 70/30 U-100 1-28 (70-30) Insulin 100 00:00: unit/mL 00 subcutaneou s suspension metformin 2022-0 No 1mg 1,000 mg 1-28 tablet 00:00: 00 lovastatin 2022-0 No 1mg 40 mg 1-28 tablet 00:00: 00 Dose 2022-0 No Unknown 1-28 00:00: 00 Novolin 2022-0 No unit/mL 70/30 U-100 1-28 (70-30) Insulin 100 00:00: unit/mL 00 subcutaneou s suspension metformin 2-0 No 1mg 1,000 mg 1-28 tablet 00:00: 00 lovastatin 2022-0 No 1mg 40 mg 1-28 tablet 00:00: 00 Dose 2022-0 No Unknown -28 00:00: 00 Novolin 2022-0 No unit/mL 70/30 U-100 1-28 (70-30) Insulin 100 00:00: unit/mL 00 subcutaneou s suspension metformin 2-0 No 1mg 1,000 mg 1-28 tablet 00:00: 00 lovastatin 2022-0 No 1mg 40 mg 1-28 tablet 00:00: 00 fenofibrate 2-0 No 1mg micronized -28 130 mg 00:00: capsule 00 Novolin 2021-0 No unit/mL 70/30 U-100 9-20 (70-30) Insulin 100 00:00: unit/mL 00 subcutaneou s suspension Novolin 2021-0 No unit/mL 70/30 U-100 9-20 (70-30) Insulin 100 00:00: unit/mL 00 subcutaneou s suspension Novolin 2021-0 No unit/mL 70/30 U-100 9-20 (70-30) Insulin 100 00:00: unit/mL 00 subcutaneou s suspension Novolin 2021-0 No unit/mL 70/30 U-100 7-29 (70-30) Insulin 100 00:00: unit/mL 00 subcutaneou s suspension prednisone 1-0 No 1mg 5 mg tablet 09-20 00:00: 00 metformin 2021-0 No 1mg 1,000 mg - tablet 00:00: 00 lovastatin 2021-0 No 1mg 40 mg - tablet 00:00: 00 Novolin 2021-0 No unit/mL 70/30 U-100 7-29 (70-30) Insulin 100 00:00: unit/mL 00 subcutaneou s suspension prednisone 1-0 No 1mg 5 mg tablet 09-20 00:00: 00 metformin 2021-0 No 1mg 1,000 mg 09-20 tablet 00:00: 00 lovastatin 2021-0 No 1mg 40 mg 09-20 tablet 00:00: 00 Novolin 2021-0 No unit/mL 70/30 U-100 09-20 (70-30) Insulin 100 00:00: unit/mL 00 subcutaneou s suspension prednisone 1-0 No 1mg 5 mg tablet 09-20 00:00: 00 metformin 2021-0 No 1mg 1,000 mg 09-20 tablet 00:00: 00 lovastatin 2021-0 No 1mg 40 mg 09-20 tablet 00:00: 00 Novolin 2021-0 No unit/mL 70/30 U-100 6-07 (70-30) Insulin 100 00:00: unit/mL 00 subcutaneou s suspension metformin 1-0 No 1mg 1,000 mg 6-07 tablet 00:00: 00 fenofibrate 2021-0 No 1mg micronized 6-07 130 mg 00:00: capsule 00 Novolin 2021-0 No unit/mL 70/30 U-100 6-07 (70-30) Insulin 100 00:00: unit/mL 00 subcutaneou s suspension metformin 2021-0 No 1mg 1,000 mg 6-07 tablet 00:00: 00 fenofibrate 2021-0 No 1mg micronized 6-07 130 mg 00:00: capsule 00 Novolin 2021-0 No unit/mL 70/30 U-100 6-07 (70-30) Insulin 100 00:00: unit/mL 00 subcutaneou s suspension metformin 2021-0 No 1mg 1,000 mg 6-07 tablet 00:00: 00 fenofibrate 2021-0 No 1mg micronized 6-07 130 mg 00:00: capsule 00 lovastatin 2021-0 No 1mg 40 mg 6-05 tablet 00:00: 00 lovastatin 2021-0 No 1mg 40 mg 6-05 tablet 00:00: 00 lovastatin 2021-0 No 1mg 40 mg 6-05 tablet 00:00: 00 Novolin 2021-0 No unit/mL 70/30 U-100 5-29 (70-30) Insulin 100 00:00: unit/mL 00 subcutaneou s suspension Novolin 2021-0 No unit/mL 70/30 U-100 5-29 (70-30) Insulin 100 00:00: unit/mL 00 subcutaneou s suspension metformin 1-0 No 1mg 1,000 mg 5-29 tablet 00:00: 00 fenofibrate 1-0 No 1mg micronized 5-29 130 mg 00:00: capsule 00 Novolin 2021-0 No unit/mL 70/30 U-100 5-29 (70-30) Insulin 100 00:00: unit/mL 00 subcutaneou s suspension Novolin 1-0 No unit/mL 70/30 U-100 5-29 (70-30) Insulin 100 00:00: unit/mL 00 subcutaneou s suspension metformin 1-0 No 1mg 1,000 mg 5-29 tablet 00:00: 00 fenofibrate 1-0 No 1mg micronized 5-29 130 mg 00:00: capsule 00 Novolin 2021-0 No unit/mL 70/30 U-100 5-29 (70-30) Insulin 100 00:00: unit/mL 00 subcutaneou s suspension Novolin 1-0 No unit/mL 70/30 U-100 5-29 (70-30) Insulin 100 00:00: unit/mL 00 subcutaneou s suspension metformin 1-0 No 1mg 1,000 mg 5-29 tablet 00:00: 00 fenofibrate 2021-0 No 1mg micronized 5-29 130 mg 00:00: capsule 00 metformin 1-0 No 1mg 1,000 mg 4-23 tablet 00:00: 00 metformin 2021-0 No 1mg 1,000 mg 4-23 tablet 00:00: 00 metformin 2021-0 No 1mg 1,000 mg 4-23 tablet 00:00: 00 metformin 2021-0 No 1mg 1,000 mg 2-16 tablet 00:00: 00 metformin 2021-0 No 1mg 1,000 mg 2-16 tablet 00:00: 00 metformin 2021-0 No 1mg 1,000 mg 2-16 tablet 00:00: 00 Novolin 2021-0 No unit/mL 70/30 U-100 2-12 (70-30) Insulin 100 00:00: unit/mL 00 subcutaneou s suspension lisinopril 1-0 No 1mg 5 mg tablet 2-12 00:00: 00 metformin 1-0 No 1mg 500 mg 2-12 tablet 00:00: 00 Dose 2021-0 No Unknown 2-12 00:00: 00 Novolin 1-0 No unit/mL 70/30 U-100 2-12 (70-30) Insulin 100 00:00: unit/mL 00 subcutaneou s suspension lisinopril 1-0 No 1mg 5 mg tablet 2-12 00:00: 00 metformin 1-0 No 1mg 500 mg 2-12 tablet 00:00: 00 fenofibrate 2020-0 No 1mg micronized 2-12 130 mg 00:00: capsule 00 Novolin 2020-0 No unit/mL 70/30 U-100 2-12 (70-30) Insulin 100 00:00: unit/mL 00 subcutaneou s suspension lisinopril 1-0 No 1mg 5 mg tablet 2-12 00:00: 00 metformin 1-0 No 1mg 500 mg 2-12 tablet 00:00: 00 Dose 1-0 No Unknown 2-12 00:00: 00 fenofibrate 2019-1 No 1mg micronized 2-12 130 mg 00:00: capsule 00 fenofibrate 2019-1 No 1mg micronized 2-12 130 mg 00:00: capsule 00 fenofibrate 2019-1 No 1mg micronized 2-12 130 mg 00:00: capsule 00 Novolin 2019-1 No unit/mL 70/30 U-100 1-23 (70-30) Insulin 100 00:00: unit/mL 00 subcutaneou s suspension metformin 2019-1 No 1mg 500 mg 1-23 tablet 00:00: 00 hydroxyzine 2019-1 No 12mg HCl 25 mg 1-23 tablet 00:00: 00 Novolin 2020-1 No unit/mL 70/30 U-100 1-23 (70-30) Insulin 100 00:00: unit/mL 00 subcutaneou s suspension metformin 2020-1 No 1mg 500 mg 1-23 tablet 00:00: 00 hydroxyzine 2020-1 No 12mg HCl 25 mg 1-23 tablet 00:00: 00 Novolin 2020-1 No unit/mL 70/30 U-100 1-23 (70-30) Insulin 100 00:00: unit/mL 00 subcutaneou s suspension metformin 2020-1 No 1mg 500 mg 1-23 tablet 00:00: 00 hydroxyzine 2020-1 No 12mg HCl 25 mg 1-23 tablet 00:00: 00 metformin 2020-1 No 1mg 500 mg 0-31 tablet 00:00: 00 metformin 2020-1 No 1mg 500 mg 0-31 tablet 00:00: 00 metformin 2020-1 No 1mg 500 mg 0-31 tablet 00:00: 00 Novolin 2020-0 No unit/mL 70/30 U-100 6-04 (70-30) Insulin 100 00:00: unit/mL 00 subcutaneou s suspension lisinopril 2020-0 No 1mg 5 mg tablet 6 00:00: 00 metformin 2020-0 No 1mg 500 mg 6-04 tablet 00:00: 00 lovastatin 2020-0 No 1mg 40 mg 6-04 tablet 00:00: 00 Novolin 2020-0 No unit/mL 70/30 U-100 6-04 (70-30) Insulin 100 00:00: unit/mL 00 subcutaneou s suspension lisinopril 2020-0 No 1mg 5 mg tablet 6 00:00: 00 metformin 2020-0 No 1mg 500 mg 6-04 tablet 00:00: 00 lovastatin 2020-0 No 1mg 40 mg 6-04 tablet 00:00: 00 Novolin 2020-0 No unit/mL 70/30 U-100 6-04 (70-30) Insulin 100 00:00: unit/mL 00 subcutaneou s suspension lisinopril 2020-0 No 1mg 5 mg tablet 604 00:00: 00 metformin 2020-0 No 1mg 500 mg 6-04 tablet 00:00: 00 lovastatin 2020-0 No 1mg 40 mg 6-04 tablet 00:00: 00 Novolin 2020-0 No unit/mL 70/30 U-100 3-27 (70-30) Insulin 100 00:00: unit/mL 00 subcutaneou s suspension lisinopril 2020-0 No 1mg 5 mg tablet 3-27 00:00: 00 lisinopril 2020-0 No 1mg 5 mg tablet 327 00:00: 00 metformin 2020-0 No 2mg ER 500 mg 3-27 tablet,exte 00:00: nded 00 release 24hr (osmotic) lovastatin 2020-0 No 1mg 40 mg 3-27 tablet 00:00: 00 Novolin 2020-0 No unit/mL 70/30 U-100 3-27 (70-30) Insulin 100 00:00: unit/mL 00 subcutaneou s suspension lisinopril 2020-0 No 1mg 5 mg tablet 327 00:00: 00 lisinopril 2020-0 No 1mg 5 mg tablet 05-19 00:00: 00 metformin 2020-0 No 2mg ER 500 mg 3-27 tablet,exte 00:00: nded 00 release 24hr (osmotic) lovastatin 2020-0 No 1mg 40 mg 3-27 tablet 00:00: 00 Novolin 2020-0 No unit/mL 70/30 U-100 3-27 (70-30) Insulin 100 00:00: unit/mL 00 subcutaneou s suspension lisinopril 2020-0 No 1mg 5 mg tablet 05-19 00:00: 00 lisinopril 2020-0 No 1mg 5 mg tablet 27 00:00: 00 metformin 2020-0 No 2mg ER 500 mg 3-27 tablet,exte 00:00: nded 00 release 24hr (osmotic) lovastatin 2020-0 No 1mg 40 mg 3-27 tablet 00:00: 00 metformin 2020-0 No 2mg ER 500 mg 2-11 tablet,exte 00:00: nded 00 release 24hr (osmotic) metformin 2020-0 No 2mg ER 500 mg 2-11 tablet,exte 00:00: nded 00 release 24hr (osmotic) metformin 2020-0 No 2mg ER 500 mg 2-11 tablet,exte 00:00: nded 00 release 24hr (osmotic) insulin NPH 2018-02 Yes inject Univ ers hum/reg 2-12 under the ity of insulin hm 09:33: skin. [place] (INSULIN 13 Medical 70/30 SC) Branch metformin 2018-02 Yes Take by Unive rs HCl 2-12 mouth. ity of (METFORMIN 09:33: [place] ORAL) 13 Medical Branch Novolin 2018-02 No unit/mL 70/30 U-100 -22 (70-30) Insulin 100 00:00: unit/mL 00 subcutaneou s suspension lisinopril 2018-02 No 1mg 5 mg tablet 03-16 00:00: 00 metformin 2018- No 2mg ER 500 mg 1-22 tablet,exte 00:00: nded 00 release 24hr (osmotic) Novolin 2018-02 No unit/mL 70/30 U-100 -22 (70-30) Insulin 100 00:00: unit/mL 00 subcutaneou s suspension lisinopril 2018-02 No 1mg 5 mg tablet 03-16 00:00: 00 metformin 2018- No 2mg ER 500 mg 1-22 tablet,exte 00:00: nded 00 release 24hr (osmotic) lovastatin 2018- No 1mg 40 mg 1-22 tablet 00:00: 00 lovastatin 2018-02 No 1mg 40 mg 1-22 tablet 00:00: 00 Novolin 2018- No unit/mL 70/30 U-100 -22 (70-30) Insulin 100 00:00: unit/mL 00 subcutaneou s suspension lisinopril 2018-02 No 1mg 5 mg tablet 03-16 00:00: 00 metformin 2018- No 2mg ER 500 mg 1-22 tablet,exte 00:00: nded 00 release 24hr (osmotic) lovastatin 2018- No 1mg 40 mg 1-22 tablet 00:00: 00 lisinopril 2018-02 No 1mg 5 mg tablet 0-08 00:00: 00 lisinopril 2018-1 No 1mg 5 mg tablet 0-08 00:00: 00 lisinopril 2018-1 No 1mg 5 mg tablet 0-08 00:00: 00 lisinopril 2019-0 No 1mg 5 mg tablet 8-12 00:00: 00 lisinopril 2019-0 No 1mg 5 mg tablet 8-12 00:00: 00 lisinopril 2019-0 No 1mg 5 mg tablet 8-12 00:00: 00 citalopram 2019-0 No 1mg 10 mg 7-31 tablet 00:00: 00 metformin 2019-0 No 2mg ER 500 mg 7-31 tablet,exte 00:00: nded 00 release 24hr (osmotic) lovastatin 2019-0 No 1mg 40 mg 7-31 tablet 00:00: 00 citalopram 2019-0 No 1mg 10 mg 7-31 tablet 00:00: 00 metformin 2019-0 No 2mg ER 500 mg 7-31 tablet,exte 00:00: nded 00 release 24hr (osmotic) lovastatin 2019-0 No 1mg 40 mg 7-31 tablet 00:00: 00 citalopram 2019-0 No 1mg 10 mg 7-31 tablet 00:00: 00 metformin 2019-0 No 2mg ER 500 mg 7-31 tablet,exte 00:00: nded 00 release 24hr (osmotic) lovastatin 2019-0 No 1mg 40 mg 7-31 tablet 00:00: 00 lovastatin 2019-0 No 1mg 40 mg 3-11 tablet 00:00: 00 lovastatin 2019-0 No 1mg 40 mg 3-11 tablet 00:00: 00 lovastatin 2019-0 No 1mg 40 mg 3-11 tablet 00:00: 00 bupropion 2018-1 No 1mg HCl SR 150 1-05 mg 00:00: tablet,12 00 hr sustained-r elease lovastatin 2018-1 No 1mg 40 mg 1-05 tablet 00:00: 00 bupropion 2018-1 No 1mg HCl SR 150 1-05 mg 00:00: tablet,12 00 hr sustained-r elease lovastatin 2018-1 No 1mg 40 mg 1-05 tablet 00:00: 00 bupropion 2018-1 No 1mg HCl SR 150 1-05 mg 00:00: tablet,12 00 hr sustained-r elease lovastatin 2018-1 No 1mg 40 mg 1-05 tablet 00:00: 00 Levemir 2018-1 No unit/mL U-100 0-12 Insulin 100 00:00: unit/mL 00 subcutaneou s solution Levemir 2018-1 No unit/mL U-100 0-12 Insulin 100 00:00: unit/mL 00 subcutaneou s solution Levemir 2017- No unit/mL U-100 0-12 Insulin 100 00:00: unit/mL 00 subcutaneou s solution Levemir 2018-1 No unit/mL U-100 0-12 Insulin 100 00:00: unit/mL 00 subcutaneou s solution Levemir 2018-1 No unit/mL U-100 0-12 Insulin 100 00:00: unit/mL 00 subcutaneou s solution Levemir 2018-1 No unit/mL U-100 0-12 Insulin 100 00:00: unit/mL 00 subcutaneou s solution bupropion 2018-1 No 1mg HCl SR 150 0-03 mg 00:00: tablet,12 00 hr sustained-r elease bupropion 2017-1 No 1mg HCl SR 150 0-03 mg 00:00: tablet,12 00 hr sustained-r elease bupropion 2018-1 No 1mg HCl SR 150 0-03 mg 00:00: tablet,12 00 hr sustained-r elease Levemir 2018-0 No unit/mL U-100 9-26 Insulin 100 00:00: unit/mL 00 subcutaneou s solution Levemir 2018-0 No unit/mL U-100 9-26 Insulin 100 00:00: unit/mL 00 subcutaneou s solution lovastatin 2018-0 No 1mg 40 mg 9-26 tablet 00:00: 00 Levemir 2018-0 No unit/mL U-100 9-26 Insulin 100 00:00: unit/mL 00 subcutaneou s solution Levemir 2018-0 No unit/mL U-100 9-26 Insulin 100 00:00: unit/mL 00 subcutaneou s solution lovastatin 2018-0 No 1mg 40 mg 9-26 tablet 00:00: 00 Levemir 2018-0 No unit/mL U-100 9-26 Insulin 100 00:00: unit/mL 00 subcutaneou s solution Levemir 2018-0 No unit/mL U-100 9-26 Insulin 100 00:00: unit/mL 00 subcutaneou s solution lovastatin 2018-0 No 1mg 40 mg 9-26 tablet 00:00: 00 lovastatin 2018-0 No 2mg 20 mg 8-31 tablet 00:00: 00 lovastatin 2018-0 No 2mg 20 mg 8-31 tablet 00:00: 00 lovastatin 2018-0 No 2mg 20 mg 8-31 tablet 00:00: 00 lovastatin 2018-0 No 2mg 20 mg 6-28 tablet 00:00: 00 lovastatin 2018-0 No 2mg 20 mg 6-28 tablet 00:00: 00 lovastatin 2018-0 No 2mg 20 mg 6-28 tablet 00:00: 00 lovastatin 2018-0 No 1mg 20 mg 6-10 tablet 00:00: 00 lovastatin 2018-0 No 1mg 20 mg 6-10 tablet 00:00: 00 lovastatin 2018-0 No 1mg 20 mg 6-10 tablet 00:00: 00 lovastatin 2018-0 No 1mg 20 mg 2-28 tablet 00:00: 00 lovastatin 2018-0 No 1mg 20 mg 2-28 tablet 00:00: 00 lovastatin 2018-0 No 1mg 20 mg 2-28 tablet 00:00: 00 Levemir 2017-1 No 20unit/ U-100 1-22 mL Insulin 100 00:00: unit/mL 00 subcutaneou s solution Levemir 2017-1 No 20unit/ U-100 1-22 mL Insulin 100 00:00: unit/mL 00 subcutaneou s solution Levemir 2017-1 No 20unit/ U-100 1-22 mL Insulin 100 00:00: unit/mL 00 subcutaneou s solution lovastatin 2017-1 No 1mg 20 mg 1-13 tablet 00:00: 00 lovastatin 2017-1 No 1mg 20 mg 1-13 tablet 00:00: 00 lovastatin 2017-1 No 1mg 20 mg 1-13 tablet 00:00: 00 glyburide 2016-0 No 1mg 2.5 mg 6-23 tablet 00:00: 00 glyburide 2016-0 No 1mg 2.5 mg 6-23 tablet 00:00: 00 glyburide 2016-0 No 1mg 2.5 mg 6-23 tablet 00:00: 00 glyburide 2016-0 No 1mg 2.5 mg 3-15 tablet 00:00: 00 glyburide 2016-0 No 1mg 2.5 mg 3-15 tablet 00:00: 00 glyburide 2016-0 No 1mg 2.5 mg 3-15 tablet 00:00: 00 metformin 2016-0 No 1mg 1,000 mg 3-11 tablet 00:00: 00 metformin 2016-0 No 1mg 1,000 mg 3-11 tablet 00:00: 00 metformin 2016-0 No 1mg 1,000 mg 3-11 tablet 00:00: 00 metformin 2016-0 No 1mg 1,000 mg 2-10 tablet 00:00: 00 metformin 2016-0 No 1mg 1,000 mg 2-10 tablet 00:00: 00 metformin 2016-0 No 1mg 1,000 mg 2-10 tablet 00:00: 00 Immunizations Ordered Filled Immunization Date Status Comments Sour e Immunization Name Name Influenza, 2020-02-10 Completed seasonal, inj 00:00:00 Influenza, 2020-02-10 Completed seasonal, inj 00:00:00 Influenza, 2020-02-10 Completed seasonal, inj 00:00:00 Influenza Virus 2019-02-03 Completed [facility] Vaccine Quad .5 mL 00:00:00 [facility] IM 6+ [place] Branch Influenza Virus 2018-01-28 Completed [facility]it y of Vaccine Quad .5 mL 00:00:00 [facility] 6+ MO Branch TDAP 2014-03-23 Completed [facility] 00:00:00 [facility] Vital Signs Vital Name Observation Time Observation Value Comments Source BP Systolic 2021-11-18 15:54:00 155 mm[Hg] BP Diastolic 2021-11-18 15:54:00 95 mm[Hg] Weight Measured 2021-11-18 15:54:00 168.40 pounds Height Measured 2021-11-18 15:54:00 59.84 inches Body Temperature 2021-11-18 15:54:00 97.90 degrees Heart Rate 2021-11-18 15:54:00 111.00 /min Respiratory Rate 2021-11-18 15:54:00 BP Systolic 2021-09-09 08:21:00 BP Diastolic 2021-09-09 08:21:00 Weight Measured 2021-09-09 08:21:00 170.00 pounds Height Measured 2021-09-09 08:21:00 59.84 inches Body Temperature 2021-09-09 08:21:00 Heart Rate 2021-09-09 08:21:00 Respiratory Rate 2021-09-09 08:21:00 BP Systolic 2021-08-30 13:48:00 129 mm[Hg] BP Diastolic 2021-08-30 13:48:00 83 mm[Hg] Weight Measured 2021-08-30 13:48:00 182.98 pounds Height Measured 2021-08-30 13:48:00 59.84 inches Body Temperature 2021-08-30 13:48:00 98.20 degrees Heart Rate 2021-08-30 13:48:00 101.00 /min Respiratory Rate 2021-08-30 13:48:00 16.00 /min BP Systolic 2021-08-16 10:58:00 175 mm[Hg] BP Diastolic 2021-08-16 10:58:00 108 mm[Hg] Weight Measured 2021-08-16 10:58:00 169.00 pounds Height Measured 2021-08-16 10:58:00 59.84 inches Body Temperature 2021-08-16 10:58:00 98.20 degrees Heart Rate 2021-08-16 10:58:00 110.00 /min Respiratory Rate 2021-08-16 10:58:00 16.00 /min BP Systolic 2021-08-13 15:06:00 158 mm[Hg] BP Diastolic 2021-08-13 15:06:00 96 mm[Hg] Weight Measured 2021-08-13 15:06:00 169.00 pounds Height Measured 2021-08-13 15:06:00 59.84 inches Body Temperature 2021-08-13 15:06:00 98.20 degrees Heart Rate 2021-08-13 15:06:00 113.00 /min Respiratory Rate 2021-08-13 15:06:00 16.00 /min BP Systolic 2021-08-02 17:00:00 157 mm[Hg] BP Diastolic 2021-08-02 17:00:00 91 mm[Hg] Weight Measured 2021-08-02 17:00:00 170.40 pounds Height Measured 2021-08-02 17:00:00 59.84 inches Body Temperature 2021-08-02 17:00:00 98.10 degrees Heart Rate 2021-08-02 17:00:00 115.00 /min Respiratory Rate 2021-08-02 17:00:00 18.00 /min BP Systolic 2021-08-02 16:21:00 157 mm[Hg] BP Diastolic 2021-08-02 16:21:00 91 mm[Hg] Weight Measured 2021-08-02 16:21:00 170.40 pounds Height Measured 2021-08-02 16:21:00 59.84 inches Body Temperature 2021-08-02 16:21:00 98.10 degrees Heart Rate 2021-08-02 16:21:00 115.00 /min Respiratory Rate 2021-08-02 16:21:00 18.00 /min BP Systolic 2021-03-22 14:52:00 160 mm[Hg] BP Diastolic 2021-03-22 14:52:00 85 mm[Hg] Weight Measured 2021-03-22 14:52:00 176.60 pounds Height Measured 2021-03-22 14:52:00 59.84 inches Body Temperature 2021-03-22 14:52:00 98.10 degrees Heart Rate 2021-03-22 14:52:00 118.00 /min Respiratory Rate 2021-03-22 14:52:00 16.00 /min BP Systolic 2020-09-20 15:17:00 131 mm[Hg] BP Diastolic 2020-09-20 15:17:00 70 mm[Hg] Weight Measured 2020-09-20 15:17:00 169.20 pounds Height Measured 2020-09-20 15:17:00 59.84 inches Body Temperature 2020-09-20 15:17:00 98.40 degrees Heart Rate 2020-09-20 15:17:00 100.00 /min Respiratory Rate 2020-09-20 15:17:00 22.00 /min BP Systolic 2020-07-21 11:54:00 128 mm[Hg] BP Diastolic 2020-07-21 11:54:00 83 mm[Hg] Weight Measured 2020-07-21 11:54:00 163.60 pounds Height Measured 2020-07-21 11:54:00 59.84 inches Body Temperature 2020-07-21 11:54:00 98.80 degrees Heart Rate 2020-07-21 11:54:00 99.00 /min Respiratory Rate 2020-07-21 11:54:00 21.00 /min BP Systolic 2020-04-06 14:11:00 155 mm[Hg] BP Diastolic 2020-04-06 14:11:00 84 mm[Hg] Weight Measured 2020-04-06 14:11:00 171.60 pounds Height Measured 2020-04-06 14:11:00 59.84 inches Body Temperature 2020-04-06 14:11:00 98.00 degrees Heart Rate 2020-04-06 14:11:00 105.00 /min Respiratory Rate 2020-04-06 14:11:00 17.00 /min Procedures This patient has no known procedures. Plan of Care Planned Activity Planned Date Details Comments Source Goal Plan of Care Note [code = 53108-5] Goal Plan of Care Note [code = 55871-9] Goal Plan of Care Note [code = 94314-8] Goal Plan of Care Note [code = 29307-9] Goal Plan of Care Note [code = 42114-2] Goal Plan of Care Note [code = 47843-1] Goal Plan of Care Note [code = 81975-6] Goal Plan of Care Note [code = 57078-6] Goal Plan of Care Note [code = 24079-6] Goal Plan of Care Note [code = 69821-4] Goal Plan of Care Note [code = 28676-2] Goal Plan of Care Note [code = 59358-1] Goal Plan of Care Note [code = 34826-0] Goal Plan of Care Note [code = 92389-1] Goal Plan of Care Note [code = 56616-5] Goal Plan of Care Note [code = 80740-0] Goal Plan of Care Note [code = 60113-4] Goal Plan of Care Note [code = 30031-4] Goal Plan of Care Note [code = 12494-0] Goal Plan of Care Note [code = 53190-3] Goal Plan of Care Note [code = 09414-7] Goal Plan of Care Note [code = 42851-9] Goal Plan of Care Note [code = 28742-9] Goal Plan of Care Note [code = 97295-2] Goal Plan of Care Note [code = 36941-6] Goal Plan of Care Note [code = 01193-6] Goal Plan of Care Note [code = 18164-2] Goal Plan of Care Note [code = 57862-3] Goal Plan of Care Note [code = 57316-2] Goal Plan of Care Note [code = 50848-5] Goal Plan of Care Note [code = 65164-4] Goal Plan of Care Note [code = 54384-4] Goal Plan of Care Note [code = 38298-2] Goal Plan of Care Note [code = 94882-1] Goal Plan of Care Note [code = 34021-1] Goal Plan of Care Note [code = 47533-0] Goal Plan of Care Note [code = 91245-3] Goal Plan of Care Note [code = 64994-0] Goal Plan of Care Note [code = 04220-7] Goal Plan of Care Note [code = 59294-6] Goal Plan of Care Note [code = 27405-2] Goal Plan of Care Note [code = 74559-7] Goal Plan of Care Note [code = 28331-7] Goal Plan of Care Note [code = 19416-4] Goal Plan of Care Note [code = 16569-4] Goal Plan of Care Note [code = 18480-0] Goal Plan of Care Note [code = 68948-7] Goal Plan of Care Note [code = 17639-9] Goal Plan of Care Note [code = 97499-3] Goal Plan of Care Note [code = 74308-1] Goal Plan of Care Note [code = 74787-1] Goal Plan of Care Note [code = 62444-2] Goal Plan of Care Note [code = 28772-1] Goal Plan of Care Note [code = 01327-3] Goal Plan of Care Note [code = 95528-6] Goal Plan of Care Note [code = 87037-7] Goal Plan of Care Note [code = 19061-7] Goal Plan of Care Note [code = 74622-0] Goal Plan of Care Note [code = 58000-8] Goal Plan of Care Note [code = 43977-2] Goal Plan of Care Note [code = 55478-1] Goal Plan of Care Note [code = 25599-6] Goal Plan of Care Note [code = 82897-3] Goal Plan of Care Note [code = 77281-7] Goal Plan of Care Note [code = 68976-1] Goal Plan of Care Note [code = 81204-4] Goal Plan of Care Note [code = 93465-6] Goal Plan of Care Note [code = 27824-3] Goal Plan of Care Note [code = 93563-7] Goal Plan of Care Note [code = 26964-4] Goal Plan of Care Note [code = 20006-1] Goal Plan of Care Note [code = 18426-8] Goal Plan of Care Note [code = 65850-6] Goal Plan of Care Note [code = 98407-7] Goal Plan of Care Note [code = 39604-6] Goal Plan of Care Note [code = 63138-8] Goal Plan of Care Note [code = 91921-5] Goal Plan of Care Note [code = 20629-9] Goal Plan of Care Note [code = 89511-1] Goal Plan of Care Note [code = 36842-3] Goal Plan of Care Note [code = 77119-9] Goal Plan of Care Note [code = 67926-5] Goal Plan of Care Note [code = 36839-0] Goal Plan of Care Note [code = 99387-4] Goal Plan of Care Note [code = 31267-7] Goal Plan of Care Note [code = 99045-4] Goal Plan of Care Note [code = 84288-8] Goal Plan of Care Note [code = 70296-6] Goal Plan of Care Note [code = 54766-8] Goal Plan of Care Note [code = 74941-4] Goal Plan of Care Note [code = 77086-9] Goal Plan of Care Note [code = 76671-0] Goal Plan of Care Note [code = 90157-3] Goal Plan of Care Note [code = 31484-4] Goal Plan of Care Note [code = 96946-0] Goal Plan of Care Note [code = 06074-2] Goal Plan of Care Note [code = 08143-1] Goal Plan of Care Note [code = 26804-5] Goal Plan of Care Note [code = 79352-6] Encounters Start End Encounter Admission Attending Care Care Encounter Source Date/Time Date/Time Type Type Clinicians Facility Department ID 2021-11-18 2021-11-18 Outpatient [id number] 00:00:00 00:00:00 Visit 968f-4285 68f-4285-b -bff4-e01 ff4-e01f7b f1ao0191u b5156u 2021-10-10 2021-10-10 [id number] Univers 00:00:00 00:00:00 Porfirionda R MOTOR PATROL OPERATOR 350.1.13.10 ity of REGIONAL 4.2.7.2.686 Billy as MATERNAL [id number] [facility] ical & CHILD [address] [place] [address] 2021-10-08 2021-10-08 [id number] Univers 00:00:00 00:00:00 Roskellynda R MOTOR PATROL OPERATOR 350.1.13.10 ity of REGIONAL 4.2.7.2.686 Billy as MATERNAL [id number] [facility] & CHILD [address] [place] [address] 2021-09-09 2021-09-09 Outpatient [id number] [id number] 00:00:00 00:00:00 Visit 5710-46a0 710-46a0-8 -8ace-51a juanita-51ab6a m8cj99vmk d09cee 2021-08-30 2021-08-30 Outpatient [id number] [id number] 00:00:00 00:00:00 Visit 9dbd-41b0 dbd-41b0-b -lq64-75t a47-13l4f1 [id number] 6086ca 2021-08-27 2021-08-27 [facility] 1.2.840.114 [id number] [facility] 00:00:00 00:00:00 Maria Victoria C MOTOR PATROL OPERATOR 350.1.13.10 ity of REGIONAL 4.2.7.2.686 Billy as MATERNAL [id number] [facility] & CHILD [address] [place] [address] 2021-08-16 2021-08-16 Outpatient R GUANAKO [facility] [id number] Univers 09:00:00 09:54:52 SURY riley o f [facility] 2021-08-16 2021-08-16 [facility] 1.2.840.114 [id number] Univers 09:00:00 09:54:52 Visit Roshunda R MOTOR PATROL OPERATOR 350.1.13.10 ity of REGIONAL 4.2.7.2.686 Billy as MATERNAL [id number] [facility] ical & CHILD [address] [place] [address] 2021-08-16 2021-08-16 Outpatient R GUANAKO [facility] [id number] Univers 09:00:00 09:00:00 PORFIRIOASTER riley o f [facility] 2021-08-16 2021-08-16 Outpatient Napoleon SANCHES [facility] [id number] Univers 08:30:00 08:30:00 SURY osvaldo o f [facility] 2021-08-16 2021-08-16 Orders Doctor RAY 1.2.840.114 [id number] Univers 00:00:00 00:00:00 Only Unassigned, CHEYANNE 350.1.13.10 ity of [place] [facility] 4.2.7.2.686 Billy as [id number] [address] 2021-07-28 2021-07-28 [facility] 1.2.840.114 [id number] Univers 00:00:00 00:00:00 Sury R MOTOR PATROL OPERATOR 350.1.13.10 ity of REGIONAL 4.2.7.2.686 Billy as MATERNAL [phone] [facility] ical & CHILD [address] [place] [address] 2020-06-27 2020-06-27 Linnea Bean [facility] 1.2.840.114 [id number] Univers 00:00:00 00:00:00 Maria Victoria Obando MOTOR PATROL OPERATOR 350.1.13.10 ity of [facility] 4.2.7.2.686 Billy as MATERNAL [phone] [facility] ical & CHILD [address] [place] [address] 2020-05-22 2020-05-22 Vivek Sanches NJLYNDSAY 1.2.840.114 [id number] 00:00:00 00:00:00 Lexxa R MOTOR PATROL OPERATOR 350.1.13.10 [facility] 4.2.7.2.686 MATERNAL [id number] & CHILD [address] [place] [address] 2020-05-22 2020-05-22 Vivek Sanches [facility] 1.2.840.114 [id number] Univers 00:00:00 00:00:00 Roshunda R MOTOR PATROL OPERATOR 350.1.13.10 ity of REGION[place] 4.2.7.2.686 Billy as MATERNAL [id number] [facility] & [address] 2020-05-21 2020-05-21 Refill [facility], [facility] [id number] 00:00:00 00:00:00 Maria Victoria C MOTOR PATROL OPERATOR 350.1.13.10 [facility]AL 4.2.7.2.686 MATERNAL [id number] & [address] 2020-05-21 2020-05-21 Refill [facility], [facility] 1.2.610.862 [id number] Univers 00:00:00 00:00:00 Maria Victoria C MOTOR PATROL OPERATOR 350.1.13.10 ity of REGIONAL 4.2.7.2.686 Billy as MATERNAL [id number] [address] 2020-04-03 2020-04-03 Outpatient R [facility] [place] [id number] Univers 00:00:00 00:00:00 ROSHUNDA ity o f [facility] 2020-03-06 2020-03-06 Telephone [facility] [id number] 00:00:00 00:00:00 Roshunda R MOTOR PATROL OPERATOR 350.1.13.10 [facility] 4.2.7.2.686 MATERNAL [id number] & [address] 2020-03-06 2020-03-06 Telephone [facility] [id number] Univers 00:00:00 00:00:00 Roshunda R MOTOR PATROL OPERATOR 350.1.13.10 ity of REGIONAL 4.2.7.2.686 Billy as MATERNAL [id number] [address] 2020-03-02 2020-03-02 Office [facility] 1.2.840.114 [id number] Univers 09:22:04 10:49:08 Visit Roshunda R MOTOR PATROL OPERATOR 350.1.13.10 ity of REGIONAL 4.2.7.2.686 Billy as MATERNAL [id number] [facility] & CHILD [address] [place] [address] 2020-03-02 2020-03-02 [facility] [id number] Univers 09:30:00 09:30:00 PORFIRIOASTER riley o f [facility] 2020-03-02 2020-03-02 Outpatient [facility] [id number] Univers 09:30:00 09:30:00 JACQUELINEOLIVIERA seany o f [facility] 2020-03-02 2020-03-02 [facility] [id number] Univers 09:00:00 09:00:00 MARIA VICTORIA riley o f [facility] 2020-03-02 2020-03-02 Orders Doctor RAY 1.2.840.114 [id number] Univers 00:00:00 00:00:00 Only Unassigned, CHEYANNE 350.1.13.10 ity of [place] [facility] 4.2.7.2.686 Billy as [id number] [address] 2020-02-29 2020-02-29 Telephone [facility] 1.2.840.114 [id number] Univers 00:00:00 00:00:00 Maria Victoria C MOTOR PATROL OPERATOR 350.1.13.10 ity of REGIONAL 4.2.7.2.686 Billy as MATERNAL [id number] [facility] & CHILD [address] [place] [address] 2020-02-29 2020-02-29 Refill [facility] [id number] Univers 00:00:00 00:00:00 Maria Victoria C MOTOR PATROL OPERATOR 350.1.13.10 ity of REGIONAL 4.2.7.2.686 Billy as MATERNAL [id number] [facility] & CHILD [address] [place] [address] 2019-12-30 2019-12-30 Orders Doctor RAY 1.2.840.114 [id number] Univers 00:00:00 00:00:00 Only Unassigned, CHEYANNE 350.1.13.10 ity of [place] [facility] 4.2.7.2.686 Billy as [id number] [address] 2019-08-02 2019-08-02 Outpatient R GUANAKO [facility] [id number] Univers 08:15:00 08:15:00 SURY ity o f [facility] 2019-08-02 2019-08-02 Office Guanako [facility] 1.2.840.114 [id number] Univers 07:45:14 08:13:52 Visit Sury Bender MOTOR PATROL OPERATOR [place].1.13.10 [place] [address].7.2.686 Billy as MATERNAL [id number] [facility] & CHILD [address] [place] [address] 2019-07-29 2019-07-29 Telephone Yara [facility] 1.2.840.114 [id number] Univers 00:00:00 00:00:00 Maria Victoria Obando MOTOR PATROL OPERATOR [address].1.13.[address]686 Billy as MATERNAL [phone] [address] Results Test Description Test Time Test Comments Results Result Comments Source LIPID PANEL 2021-09-28 04:31:34 Test Item Value Reference Range Interpretation Comme nts CHOLESTEROL (test code = 2210) 289 MG/DL <200 H TRIGLYCERIDES (test code = 1152 MG/DL <150 H * SPECIMEN LIPEMIC RESULTS 2231) RECHECKED AND V ERIFIED HDL CHOLESTEROL (test code = 29 MG/DL >39 L 0) CALC LDL CHOL (test code = (NOTE) MG/DL <100 U NABLE TO CALCULATE A VALID LDL 2236) CHOLESTEROL WHE N THE TRIGLYCERIDEVAL UE IS GREATER THAN 400 MG/DL.UNABL E TO CALCULATE A VALID LDL LEN STEROL WHEN THE TRIGLYCERIDEVAL UE IS GREATER THAN 400 MG/DL. NOTE : CALCULATED LDL IS BASED ON JOSTIN -MORAN METHOD WHICHINCLUDES A DJUSTABLE TRIGLYCERIDE:VL DL CHOLESTEROL RATIO.THIS FACT OR VARIES BY MEASURED TRIGLY CERIDE AND NON-HDLCHOLESTE ROL CONCENTRATIONS WITH INCREASED CALCULATED LDL SEENIN HIGHER T RIGLYCERIDE OR LOWER NON-HDL S PECIMENS. FOR MOREINFORMATION , SEE CLIENT ANNOUNCEMENT AT [email or web address] RISK RATIO LDL/HDL (test code (NOTE) RATIO <3.22 UNABLE TO CALCULATE = 2238) COMPREHENSIVE METABOLIC [id number] 04:31:34 Test Item Value Reference Range Interpretation Comments GLUCOSE (test code = 103 MG/DL 70-99 H 2216) BUN (test code = 7 MG/DL 6-20 2207) CREATININE (test 0.53 MG/DL 0.60-1.30 L code = 2214) eGFR (2020 CKD-EPI) 114 >60 (test code = 94184) ML/MIN/1.73 CALC BUN/CREAT (test 13 RATIO 6-28 code = 2235) SODIUM (test code = 140 MEQ/L 743-119 4224) POTASSIUM (test code 3.9 MEQ/L 3.5-5.4 = 2227) CHLORIDE (test code 105 MEQ/L 95-107 = 221) CARBON DIOXIDE (test 22 MEQ/L 19-31 code = 2206) CALCIUM (test code = 9.0 MG/DL 8.5-10.5 2208) PROTEIN, TOTAL (test 6.3 G/DL 6.1-8.3 code = 222) ALBUMIN (test code = 4.1 G/DL 3.5-5.2 2200) CALC GLOBULIN (test 2.2 G/DL 1.9-3.7 code = 2240) CALC A/G RATIO (test 1.9 RATIO 1.0-2.6 code = 2234) BILIRUBIN, TOTAL 0.3 MG/DL See_Comment [Automated message] (test code = 2207) The syste m which generated this result transmitted ref erence range: <=1.2. T he reference range was not used to int erpret this result as normal/abnormal . ALKALINE PHOSPHATASE 74 U/L 40-123 (test code = 2204) AST (test code = 20 U/L 9-40 2217) ALT (test code = 25 U/L 5-40 UNLESS OTH ERWISE 2218) INDICATED, ALL TESTING PERFORM [facility], [place] [place] [address] [facility] DIRECTOR: MARLENE GONZALEZ M.D. CLIA NUMBER [id number] CAP ACCREDITATION N O. [id number] HEMOGLOBIN [id number] 03:56:58 Test Item Value Reference Range Interpretation Comments HEMOGLOBIN A1c (test 7.6 % 4.2-5.6 H [employer]IC AN DIABETES code = 32491) ASSOCIATION IDELINES FOR HGB A1C: PREDIABETES/INC REASED RISK . . . . . . . 5.7 -6.4% DIAGNOSIS OF DI ABETES . . . . . . . . . >=6 .5% WITH CONFIRMATION OR APPROPRIATE SYMPTOMS NOTE: ASSAY MAY BE AFFECTED BY HEMOGLOBINOPATH IES (SICKLE CELL ANEMIA, S- C DISEASE, OTHERS) OR SUHAS FICIALLY LOWERED BY DECR EASED RED CELL SURVIVAL ( HEMOLYTIC ANEMIAS, BLOOD LOSS, ETC.). CONSIDER ALTERN ATE TESTING OR LABORATORY C ONSULTATION. LIPID [id number] 00:00:00 Test Item Value Reference Range Interpretation Comments CHOLESTEROL (test code = 2210) 289 MG/DL TRIGLYCERIDES (test code = 2232) 1152 MG/DL HDL CHOLESTEROL (test code = 29 MG/DL 2220) CALC LDL CHOL (test code = 2237) (NOTE) MG/DL RISK RATIO LDL/HDL (test code = (NOTE) RATIO 2238) LIPID [id number] 00:00:00 Test Item Value Reference Range Interpretation Comments CHOLESTEROL (test code = 2210) 289 MG/DL TRIGLYCERIDES (test code = 2232) 1152 MG/DL HDL CHOLESTEROL (test code = 29 MG/DL 2220) CALC LDL CHOL (test code = 2237) (NOTE) MG/DL RISK RATIO LDL/HDL (test code = (NOTE) RATIO 2238) HEMOGLOBIN [id number] 00:00:00 Test Item Value Reference Range Interpretation Comments HEMOGLOBIN A1c (test code = 85103) 7.6 % HEMOGLOBIN [id number] 00:00:00 Test Item Value Reference Range Interpretation Comments HEMOGLOBIN A1c (test code = 84628) 7.6 % HEMOGLOBIN [id number] 00:00:00 Test Item Value Reference Range Interpretation Comments HEMOGLOBIN A1c (test code = 17273) 7.6 % COMPREHENSIVE METABOLIC [id number] 00:00:00 Test Item Value Reference Range Interpretation Comments GLUCOSE (test code = 2217) 103 MG/DL BUN (test code = 2208) 7 MG/DL CREATININE (test code = 2214) 0.53 MG/DL eGFR (2020 CKD-EPI) (test 114 ML/MIN/1.73 code = 58023) CALC BUN/CREAT (test code = 13 RATIO 2235) SODIUM (test code = 2231) 140 MEQ/L POTASSIUM (test code = 2228) 3.9 MEQ/L CHLORIDE (test code = 2215) 105 MEQ/L CARBON DIOXIDE (test code = 22 MEQ/L 2206) CALCIUM (test code = 2209) 9.0 MG/DL PROTEIN, TOTAL (test code = 6.3 G/DL 2228) ALBUMIN (test code = 2201) 4.1 G/DL CALC GLOBULIN (test code = 2.2 G/DL 2240) CALC A/G RATIO (test code = 1.9 RATIO 2234) BILIRUBIN, TOTAL (test code = 0.3 MG/DL 2206) ALKALINE PHOSPHATASE (test 74 U/L code = 2204) AST (test code = 2218) 20 U/L ALT (test code = 2219) 25 U/L COMPREHENSIVE METABOLIC [id number] 00:00:00 Test Item Value Reference Range Interpretation Comments GLUCOSE (test code = 2217) 103 MG/DL BUN (test code = 2208) 7 MG/DL CREATININE (test code = 2214) 0.53 MG/DL eGFR (2020 CKD-EPI) (test 114 ML/MIN/1.73 code = 62302) CALC BUN/CREAT (test code = 13 RATIO 2235) SODIUM (test code = 2231) 140 MEQ/L POTASSIUM (test code = 2228) 3.9 MEQ/L CHLORIDE (test code = 2215) 105 MEQ/L CARBON DIOXIDE (test code = 22 MEQ/L 2205) CALCIUM (test code = 2209) 9.0 MG/DL PROTEIN, TOTAL (test code = 6.3 G/DL 2228) ALBUMIN (test code = 2201) 4.1 G/DL CALC GLOBULIN (test code = 2.2 G/DL 2240) CALC A/G RATIO (test code = 1.9 RATIO 2234) BILIRUBIN, TOTAL (test code = 0.3 MG/DL 2206) ALKALINE PHOSPHATASE (test 74 U/L code = 2204) AST (test code = 2218) 20 U/L ALT (test code = 2219) 25 U/L LIPID [id number] 00:00:00 Test Item Value Reference Range Interpretation Comments CHOLESTEROL (test code = 2210) 289 MG/DL TRIGLYCERIDES (test code = 2232) 1152 MG/DL HDL CHOLESTEROL (test code = 29 MG/DL 2220) CALC LDL CHOL (test code = 2237) (NOTE) MG/DL RISK RATIO LDL/HDL (test code = (NOTE) RATIO 2238) LIPID [id number] 00:00:00 Test Item Value Reference Range Interpretation Comments CHOLESTEROL (test code = 2210) 289 MG/DL TRIGLYCERIDES (test code = 2232) 1152 MG/DL HDL CHOLESTEROL (test code = 29 MG/DL 2220) CALC LDL CHOL (test code = 2237) (NOTE) MG/DL RISK RATIO LDL/HDL (test code = (NOTE) RATIO 2238) HEMOGLOBIN [id number] 00:00:00 Test Item Value Reference Range Interpretation Comments HEMOGLOBIN A1c (test code = 77164) 7.6 % HEMOGLOBIN [id number] 00:00:00 Test Item Value Reference Range Interpretation Comments HEMOGLOBIN A1c (test code = 00634) 7.6 % HEMOGLOBIN [id number] 00:00:00 Test Item Value Reference Range Interpretation Comments HEMOGLOBIN A1c (test code = 76002) 7.6 % COMPREHENSIVE METABOLIC [id number] 00:00:00 Test Item Value Reference Range Interpretation Comments GLUCOSE (test code = 2217) 103 MG/DL BUN (test code = 2208) 7 MG/DL CREATININE (test code = 2214) 0.53 MG/DL eGFR (2020 CKD-EPI) (test 114 ML/MIN/1.73 code = 14914) CALC BUN/CREAT (test code = 13 RATIO 2234) SODIUM (test code = 2231) 140 MEQ/L POTASSIUM (test code = 2228) 3.9 MEQ/L CHLORIDE (test code = 2215) 105 MEQ/L CARBON DIOXIDE (test code = 22 MEQ/L 2205) CALCIUM (test code = 2209) 9.0 MG/DL PROTEIN, TOTAL (test code = 6.3 G/DL 2228) ALBUMIN (test code = 220) 4.1 G/DL CALC GLOBULIN (test code = 2.2 G/DL 2239) CALC A/G RATIO (test code = 1.9 RATIO 2233) BILIRUBIN, TOTAL (test code = 0.3 MG/DL 2206) ALKALINE PHOSPHATASE (test 74 U/L code = 2204) AST (test code = 2218) 20 U/L ALT (test code = 2219) 25 U/L COMPREHENSIVE METABOLIC [id number] 00:00:00 Test Item Value Reference Range Interpretation Comments GLUCOSE (test code = 2217) 103 MG/DL BUN (test code = 2208) 7 MG/DL CREATININE (test code = 2214) 0.53 MG/DL eGFR (2020 CKD-EPI) (test 114 ML/MIN/1.73 code = 08164) CALC BUN/CREAT (test code = 13 RATIO 2235) SODIUM (test code = 2231) 140 MEQ/L POTASSIUM (test code = 2228) 3.9 MEQ/L CHLORIDE (test code = 2215) 105 MEQ/L CARBON DIOXIDE (test code = 22 MEQ/L 2205) CALCIUM (test code = 2209) 9.0 MG/DL PROTEIN, TOTAL (test code = 6.3 G/DL 2228) ALBUMIN (test code = 220) 4.1 G/DL CALC GLOBULIN (test code = 2.2 G/DL 2239) CALC A/G RATIO (test code = 1.9 RATIO 2233) BILIRUBIN, TOTAL (test code = 0.3 MG/DL 2206) ALKALINE PHOSPHATASE (test 74 U/L code = 2204) AST (test code = 2218) 20 U/L ALT (test code = 2219) 25 U/L ALBUMIN/CREATININE RATIO, URINE, [id number] 06:08:56 Test Item Value Reference Range Interpretation Comments CREATININE, URINE, 170.9 MG/DL NOT ESTAB RANDOM (test code = 2071) ALBUMIN, URINE, 45.7 MG/DL NOT ESTAB RANDOM (test code = 97448) CALC ALBUMIN/CREAT, 267 MG/G <30 H Note: RND (test code = Albumin/Cre atinine 50303) ratio reference interval reflec ts ADA and NKF guideli des. VITAMIN D, 25 [id number] 04:23:26 Test Item Value Reference Range Interpretation Comments VITAMIN D, 25 OH 9 NG/ML SEE BELOW L NOTE: 25-H YDROXYVITAMIN D (test code = 4958) ASSAY INC LUDES 25-HYDROXYVITAM IN D2 AND D3. METHODOLOGY IS CHEMILUMINESCEN T IMMUNOASSAY. INTERPRETIVE RA NGES PEDIATRIC (<17 YEARS) . . . . . . . . . . . NG/ML 20-100ADULT: IN SUFFICIENT . . . . . . . . . . . . . . NG/ML <20 SUBOP TIMAL . . . . . . . . . . . . . . . NG/ML 20-29 OPT IMAL . . . . . . . . . . . . . . . . . NG/ML 30-100 MICROALBUMIN/CREATININE, RANDOM AND [id number] 00:00:00 Test Item Value Reference Range Interpretation Comments CREATININE, URINE, RANDOM (test 170.9 MG/DL code = 2072) ALBUMIN, URINE, RANDOM (test code 45.7 MG/DL = 38579) CALC ALBUMIN/CREAT, RND (test 267 MG/G code = 58835) VITAMIN D, 25 [id number] 00:00:00 Test Item Value Reference Range Interpretation Comments VITAMIN D, 25 OH (test code = 4958) 9 NG/ML MICROALBUMIN/CREATININE, RANDOM AND [id number] 00:00:00 Test Item Value Reference Range Interpretation Comments CREATININE, URINE, RANDOM (test 170.9 MG/DL code = 2072) ALBUMIN, URINE, RANDOM (test code 45.7 MG/DL = 11744) CALC ALBUMIN/CREAT, RND (test 267 MG/G code = 54274) MICROALBUMIN/CREATININE, RANDOM AND [id number] 00:00:00 Test Item Value Reference Range Interpretation Comments CREATININE, URINE, RANDOM (test 170.9 MG/DL code = 2072) ALBUMIN, URINE, RANDOM (test code 45.7 MG/DL = 43978) CALC ALBUMIN/CREAT, RND (test 267 MG/G code = 47274) VITAMIN D, 25 [id number] 00:00:00 Test Item Value Reference Range Interpretation Comments VITAMIN D, 25 OH (test code = 4958) 9 NG/ML VITAMIN D, 25 [id number] 00:00:00 Test Item Value Reference Range Interpretation Comments VITAMIN D, 25 OH (test code = 4958) 9 NG/ML MICROALBUMIN/CREATININE, RANDOM AND [id number] 00:00:00 Test Item Value Reference Range Interpretation Comments CREATININE, URINE, RANDOM (test 170.9 MG/DL code = 2072) ALBUMIN, URINE, RANDOM (test code 45.7 MG/DL = 62396) CALC ALBUMIN/CREAT, RND (test 267 MG/G code = 92374) MICROALBUMIN/CREATININE, RANDOM AND [id number] 00:00:00 Test Item Value Reference Range Interpretation Comments CREATININE, URINE, RANDOM (test 170.9 MG/DL code = 2072) ALBUMIN, URINE, RANDOM (test code 45.7 MG/DL = 40780) CALC ALBUMIN/CREAT, RND (test 267 MG/G code = 52655) VITAMIN D, 25 [id number] 00:00:00 Test Item Value Reference Range Interpretation Comments VITAMIN D, 25 OH (test code = 4958) 9 NG/ML VITAMIN D, 25 [id number] 00:00:00 Test Item Value Reference Range Interpretation Comments VITAMIN D, 25 OH (test code = 4958) 9 NG/ML LIPID [id number] 22:05:35 Test Item Value Reference Range Interpretation Comments CHOLESTEROL (test 814 MG/DL <200 H code = 2210) TRIGLYCERIDES (test 549 MG/DL <150 H code = 2232) HDL CHOLESTEROL 20 MG/DL >39 L (test code = 2220) CALC LDL CHOL (test (NOTE) MG/DL <100 UNABLE T O CALCULATE A code = 2237) VALID LDL LEN STEROL WHEN THE TRIGLYCERIDEVAL UE IS GREATER THAN 40 0 MG/DL.UNABLE TO CALCULATE A ESCOBAR ID LDL CHOLESTEROL WHE N THE TRIGLYCERIDEVAL UE IS GREATER THAN 40 0 MG/DL. NOTE: CALCULATE D LDL IS BASED ON JOSTIN -MORAN METHOD WHICHINC LUDES ADJUSTABLE TRIGLYCERIDE:VL DL CHOLESTEROL RAT IO.THIS FACTOR VARIES B Y MEASURED TRIGLY CERIDE AND NON-HDLCHOL ESTEROL CONCENTRATIONS WITH INCREASED CALCU LATED LDL SEENIN HIGH ER TRIGLYCERIDE OR LOWER NON-HDL SPECIME NS. FOR MOREINFORMATION , SEE CLIENT ANNOUNCE MENT AT [email or web address] CalcLDL-C RISK RATIO LDL/HDL (NOTE) RATIO <3.22 UNABLE T O CALCULATE (test code = 2238) COMPREHENSIVE METABOLIC [id number] 22:05:35 Test Item Value Reference Range Interpretation Comments GLUCOSE (test code = 240 MG/DL 70-99 H 2217) BUN (test code = 9 MG/DL 6-20 2207) CREATININE (test 0.47 MG/DL 0.60-1.30 L code = 2213) eGFR (2020 CKD-EPI) 118 >60 (test code = 95786) ML/MIN/1.73 CALC BUN/CREAT (test 19 RATIO 6-28 code = 223) SODIUM (test code = 134 MEQ/L 184-254 3453) POTASSIUM (test code 4.4 MEQ/L 3.5-5.4 = 2227) CHLORIDE (test code 93 MEQ/L 95-107 L = 2214) CARBON DIOXIDE (test 19 MEQ/L 19-31 code = 2205) CALCIUM (test code = 9.5 MG/DL 8.5-10.5 2208) PROTEIN, TOTAL (test 6.9 G/DL 6.1-8.3 code = 2228) ALBUMIN (test code = 4.3 G/DL 3.5-5.2 2200) CALC GLOBULIN (test 2.6 G/DL 1.9-3.7 code = 2239) CALC A/G RATIO (test 1.7 RATIO 1.0-2.6 code = 223) BILIRUBIN, TOTAL 0.3 MG/DL See_Comment [Automated message] (test code = 2206) The syste m which generated this result transmit [place] reference range : <=1.2. The refe rence range was not u sed to interpret th is result as normal/abnormal . ALKALINE PHOSPHATASE 94 U/L 40-120 (test code = 220) AST (test code = 9 U/L 9-40 2217) ALT (test code = 49 U/L 5-40 H 2218) IRON, [id number] 22:05:35 Test Item Value Reference Range Interpretation Comments IRON, SERUM (test 91 UG/DL 37-145 UNLESS OT HERWISE code = 2222) INDICATED, ALL TESTING PERFORMED [facility] [address] [place] [id number] [facility] DIRECTOR: MARLENE GONZALEZ M.D. CLIA NUMBER [id number] CAP ACCREDITATION N O. [id number] VITAMIN [id number] 05:31:10 Test Item Value Reference Range Interpretation Comments VITAMIN B-12 (test code = 4283) >2000 PG/ML 200-950 H COMPREHENSIVE METABOLIC [id number] 00:00:00 Test Item Value Reference Range Interpretation Comments GLUCOSE (test code = 2217) 240 MG/DL BUN (test code = 2208) 9 MG/DL CREATININE (test code = 2214) 0.47 MG/DL eGFR (2020 CKD-EPI) (test 118 ML/MIN/1.73 code = 36671) CALC BUN/CREAT (test code = 19 RATIO 2235) SODIUM (test code = 2231) 134 MEQ/L POTASSIUM (test code = 2228) 4.4 MEQ/L CHLORIDE (test code = 2215) 93 MEQ/L CARBON DIOXIDE (test code = 19 MEQ/L 2205) CALCIUM (test code = 2209) 9.5 MG/DL PROTEIN, TOTAL (test code = 6.9 G/DL 2228) ALBUMIN (test code = 2201) 4.3 G/DL CALC GLOBULIN (test code = 2.6 G/DL 2239) CALC A/G RATIO (test code = 1.7 RATIO 2233) BILIRUBIN, TOTAL (test code = 0.3 MG/DL 2206) ALKALINE PHOSPHATASE (test 94 U/L code = 2204) AST (test code = 2218) 9 U/L ALT (test code = 2219) 49 U/L VITAMIN [id number] 00:00:00 Test Item Value Reference Range Interpretation Comments VITAMIN B-12 (test code = 2840) >2000 PG/ML VITAMIN [id number] 00:00:00 Test Item Value Reference Range Interpretation Comments VITAMIN B-12 (test code = 2840) >2000 PG/ML IRON, [id number] 00:00:00 Test Item Value Reference Range Interpretation Comments IRON, SERUM (test code = 2222) 91 UG/DL LIPID [id number] 00:00:00 Test Item Value Reference Range Interpretation Comments CHOLESTEROL (test code = 2210) 814 MG/DL TRIGLYCERIDES (test code = 2232) 549 MG/DL HDL CHOLESTEROL (test code = 20 MG/DL 0) CALC LDL CHOL (test code = 2237) (NOTE) MG/DL RISK RATIO LDL/HDL (test code = (NOTE) RATIO 2238) LIPID [id number] 00:00:00 Test Item Value Reference Range Interpretation Comments CHOLESTEROL (test code = 2210) 814 MG/DL TRIGLYCERIDES (test code = 2232) 549 MG/DL HDL CHOLESTEROL (test code = 20 MG/DL 0) CALC LDL CHOL (test code = 2237) (NOTE) MG/DL RISK RATIO LDL/HDL (test code = (NOTE) RATIO 2238) COMPREHENSIVE METABOLIC [id number] 00:00:00 Test Item Value Reference Range Interpretation Comments GLUCOSE (test code = 2217) 240 MG/DL BUN (test code = 2208) 9 MG/DL CREATININE (test code = 2214) 0.47 MG/DL eGFR (2020 CKD-EPI) (test 118 ML/MIN/1.73 code = 01909) CALC BUN/CREAT (test code = 19 RATIO 2235) SODIUM (test code = 2231) 134 MEQ/L POTASSIUM (test code = 2228) 4.4 MEQ/L CHLORIDE (test code = 2215) 93 MEQ/L CARBON DIOXIDE (test code = 19 MEQ/L 2205) CALCIUM (test code = 2209) 9.5 MG/DL PROTEIN, TOTAL (test code = 6.9 G/DL 2228) ALBUMIN (test code = 2201) 4.3 G/DL CALC GLOBULIN (test code = 2.6 G/DL 2240) CALC A/G RATIO (test code = 1.7 RATIO 4) BILIRUBIN, TOTAL (test code = 0.3 MG/DL 2206) ALKALINE PHOSPHATASE (test 94 U/L code = 2204) AST (test code = 2218) 9 U/L ALT (test code = 2219) 49 U/L COMPREHENSIVE METABOLIC [id number] 00:00:00 Test Item Value Reference Range Interpretation Comments GLUCOSE (test code = 2217) 240 MG/DL BUN (test code = 2208) 9 MG/DL CREATININE (test code = 2214) 0.47 MG/DL eGFR (2020 CKD-EPI) (test 118 ML/MIN/1.73 code = 51829) CALC BUN/CREAT (test code = 19 RATIO 2235) SODIUM (test code = 2231) 134 MEQ/L POTASSIUM (test code = 2228) 4.4 MEQ/L CHLORIDE (test code = 2215) 93 MEQ/L CARBON DIOXIDE (test code = 19 MEQ/L 2206) CALCIUM (test code = 2209) 9.5 MG/DL PROTEIN, TOTAL (test code = 6.9 G/DL 2228) ALBUMIN (test code = 2201) 4.3 G/DL CALC GLOBULIN (test code = 2.6 G/DL 2240) CALC A/G RATIO (test code = 1.7 RATIO 2234) BILIRUBIN, TOTAL (test code = 0.3 MG/DL 2206) ALKALINE PHOSPHATASE (test 94 U/L code = 2204) AST (test code = 2218) 9 U/L ALT (test code = 2219) 49 U/L VITAMIN [id number] 00:00:00 Test Item Value Reference Range Interpretation Comments VITAMIN B-12 (test code = 2840) >2000 PG/ML VITAMIN [id number] 00:00:00 Test Item Value Reference Range Interpretation Comments VITAMIN B-12 (test code = 2840) >2000 PG/ML VITAMIN [id number] 00:00:00 Test Item Value Reference Range Interpretation Comments VITAMIN B-12 (test code = 2840) >2000 PG/ML IRON, [id number] 00:00:00 Test Item Value Reference Range Interpretation Comments IRON, SERUM (test code = 2222) 91 UG/DL IRON, [id number] 00:00:00 Test Item Value Reference Range Interpretation Comments IRON, SERUM (test code = 2222) 91 UG/DL LIPID [id number] 00:00:00 Test Item Value Reference Range Interpretation Comments CHOLESTEROL (test code = 2210) 814 MG/DL TRIGLYCERIDES (test code = 2232) 549 MG/DL HDL CHOLESTEROL (test code = 20 MG/DL 2220) CALC LDL CHOL (test code = 2237) (NOTE) MG/DL RISK RATIO LDL/HDL (test code = (NOTE) RATIO 2238) LIPID [id number] 00:00:00 Test Item Value Reference Range Interpretation Comments CHOLESTEROL (test code = 2210) 814 MG/DL TRIGLYCERIDES (test code = 2232) 549 MG/DL HDL CHOLESTEROL (test code = 20 MG/DL 2220) CALC LDL CHOL (test code = 2237) (NOTE) MG/DL RISK RATIO LDL/HDL (test code = (NOTE) RATIO 2238) COMPREHENSIVE METABOLIC [id number] 00:00:00 Test Item Value Reference Range Interpretation Comments GLUCOSE (test code = 2217) 240 MG/DL BUN (test code = 2208) 9 MG/DL CREATININE (test code = 2214) 0.47 MG/DL eGFR (2020 CKD-EPI) (test 118 ML/MIN/1.73 code = 54587) CALC BUN/CREAT (test code = 19 RATIO 2235) SODIUM (test code = 2231) 134 MEQ/L POTASSIUM (test code = 2228) 4.4 MEQ/L CHLORIDE (test code = 2215) 93 MEQ/L CARBON DIOXIDE (test code = 19 MEQ/L 2206) CALCIUM (test code = 2209) 9.5 MG/DL PROTEIN, TOTAL (test code = 6.9 G/DL 2228) ALBUMIN (test code = 2201) 4.3 G/DL CALC GLOBULIN (test code = 2.6 G/DL 2240) CALC A/G RATIO (test code = 1.7 RATIO 2234) BILIRUBIN, TOTAL (test code = 0.3 MG/DL 2206) ALKALINE PHOSPHATASE (test 94 U/L code = 2204) AST (test code = 2218) 9 U/L ALT (test code = 2219) 49 U/L COMPREHENSIVE METABOLIC [id number] 00:00:00 Test Item Value Reference Range Interpretation Comments GLUCOSE (test code = 2217) 240 MG/DL BUN (test code = 2208) 9 MG/DL CREATININE (test code = 2214) 0.47 MG/DL eGFR (2020 CKD-EPI) (test 118 ML/MIN/1.73 code = 46787) CALC BUN/CREAT (test code = 19 RATIO 2235) SODIUM (test code = 2231) 134 MEQ/L POTASSIUM (test code = 2228) 4.4 MEQ/L CHLORIDE (test code = 2215) 93 MEQ/L CARBON DIOXIDE (test code = 19 MEQ/L 2206) CALCIUM (test code = 2209) 9.5 MG/DL PROTEIN, TOTAL (test code = 6.9 G/DL 2228) ALBUMIN (test code = 2201) 4.3 G/DL CALC GLOBULIN (test code = 2.6 G/DL 2240) CALC A/G RATIO (test code = 1.7 RATIO 2234) BILIRUBIN, TOTAL (test code = 0.3 MG/DL 2206) ALKALINE PHOSPHATASE (test 94 U/L code = 2204) AST (test code = 2218) 9 U/L ALT (test code = 2219) 49 U/L VITAMIN [id number] 00:00:00 Test Item Value Reference Range Interpretation Comments VITAMIN B-12 (test code = 2840) >2000 PG/ML VITAMIN [id number] 00:00:00 Test Item Value Reference Range Interpretation Comments VITAMIN B-12 (test code = 2840) >2000 PG/ML VITAMIN [id number] 00:00:00 Test Item Value Reference Range Interpretation Comments VITAMIN B-12 (test code = 2840) >2000 PG/ML IRON, [id number] 00:00:00 Test Item Value Reference Range Interpretation Comments IRON, SERUM (test code = 2222) 91 UG/DL IRON, [id number] 00:00:00 Test Item Value Reference Range Interpretation Comments IRON, SERUM (test code = 2222) 91 UG/DL LIPID [id number] 00:00:00 Test Item Value Reference Range Interpretation Comments CHOLESTEROL (test code = 2210) 814 MG/DL TRIGLYCERIDES (test code = 2232) 549 MG/DL HDL CHOLESTEROL (test code = 20 MG/DL 0) CALC LDL CHOL (test code = 2237) (NOTE) MG/DL RISK RATIO LDL/HDL (test code = (NOTE) RATIO 2238) CBC W/AUTO DIFF WITH [id number] 03:36:44 Test Item Value Reference Range Interpretation Comments WBC (test code = 6.8 K/UL 3.5-11.0 1001) RBC (test code = 4.97 M/UL 3.80-5.40 1002) HEMOGLOBIN (test code 15.6 G/DL 11.5-15.5 H = 1003) HEMATOCRIT (test code 43.2 % 34.0-45.0 = 1004) MCV (test code = 86.9 fL 80.0-99.0 1005) MCH (test code = 31.4 PG 25.0-33.0 1006) MCHC (test code = 36.1 G/DL 31.0-36.0 H 1007) RDW (test code = 13.1 % 11.5-15.0 1038) NEUTROPHILS (test 65.5 % code = 1008) LYMPHOCYTES (test 26.7 % code = 1010) MONOCYTES (test code 4.9 % = 1011) EOSINOPHILS (test 2.1 % code = 1012) BASOPHILS (test code 0.4 % = 1013) IMMATURE GRANULOCYTES 0.4 % (test code = 1036) NUCLEATED RBCS (test 0.0 /100 WBC'S See_Comment [Aut omated code = 1065) message] The sy stem which generated this result transmitted reference range : 0.0. The refere nce range was not u sed to interpret th is result as normal/abnormal . PLATELET COUNT (test 248 K/UL 130-400 code = 1015) ABSOLUTE NEUTROPHILS 4.43 K/UL 1.50-7.50 (test code = 1066) ABSOLUTE LYMPHOCYTES 1.81 K/UL 1.00-4.00 (test code = 1067) ABSOLUTE MONOCYTES 0.33 K/UL 0.20-1.00 (test code = 1068) ABSOLUTE EOSINOPHILS 0.14 K/UL 0.00-0.50 (test code = 1040) ABSOLUTE BASOPHILS 0.03 K/UL 0.00-0.20 (test code = 1069) ABS IMMATURE 0.03 K/UL 0.00-0.10 GRANULOCYTES (test code = 1020) ABS NUCLEATED RBCS 0.02 K/UL 0.00-0.11 (test code = 60128) HEMOGLOBIN [id number] 03:25:41 Test Item Value Reference Range Interpretation Comments HEMOGLOBIN A1c (test 8.7 % 4.2-5.6 H [employer]IC AN DIABETES code = 69441) ASSOCIATION IDELINES FOR HGB A1C: PREDIABETES/INC REASED RISK . . . . . . . 5.7 -6.4% DIAGNOSIS OF DI ABETES . . . . . . . . . >=6 .5% WITH CONFIRMATION OR APPROPRIATE SYMPTOMS NOTE: ASSAY MAY BE AFFECTED BY HEMOGLOBINOPATH IES (SICKLE CELL ANEMIA, S- C DISEASE, OTHERS) OR SUHAS FICIALLY LOWERED BY DECR EASED RED CELL SURVIVAL ( HEMOLYTIC ANEMIAS, BLOOD LOSS, ETC.). CONSIDER ALTERN ATE TESTING OR LABORATORY C ONSULTATION. HEMOGLOBIN [id number] 00:00:00 Test Item Value Reference Range Interpretation Comments HEMOGLOBIN A1c (test code = 45541) 8.7 % HEMOGLOBIN [id number] 00:00:00 Test Item Value Reference Range Interpretation Comments HEMOGLOBIN A1c (test code = 42862) 8.7 % CBC W/AUTO [id number] 00:00:00 Test Item Value Reference Range Interpretation Comments WBC (test code = 1001) 6.8 K/UL RBC (test code = 1002) 4.97 M/UL HEMOGLOBIN (test code = 1003) 15.6 G/DL HEMATOCRIT (test code = 1004) 43.2 % MCV (test code = 1005) 86.9 fL MCH (test code = 1006) 31.4 PG MCHC (test code = 1007) 36.1 G/DL RDW (test code = 1038) 13.1 % NEUTROPHILS (test code = 1008) 65.5 % LYMPHOCYTES (test code = 1010) 26.7 % MONOCYTES (test code = 1011) 4.9 % EOSINOPHILS (test code = 1012) 2.1 % BASOPHILS (test code = 1013) 0.4 % IMMATURE GRANULOCYTES (test 0.4 % code = 1036) NUCLEATED RBCS (test code = 0.0 /100WBC'S 1065) PLATELET COUNT (test code = 248 K/UL 1015) ABSOLUTE NEUTROPHILS (test code 4.43 K/UL = 1066) ABSOLUTE LYMPHOCYTES (test code 1.81 K/UL = 1067) ABSOLUTE MONOCYTES (test code = 0.33 K/UL 1068) ABSOLUTE EOSINOPHILS (test code 0.14 K/UL = 1040) ABSOLUTE BASOPHILS (test code = 0.03 K/UL 1069) ABS IMMATURE GRANULOCYTES (test 0.03 K/UL code = 1020) ABS NUCLEATED RBCS (test code = 0.02 K/UL 91802) CBC W/AUTO [id number] 00:00:00 Test Item Value Reference Range Interpretation Comments WBC (test code = 1001) 6.8 K/UL RBC (test code = 1002) 4.97 M/UL HEMOGLOBIN (test code = 1003) 15.6 G/DL HEMATOCRIT (test code = 1004) 43.2 % MCV (test code = 1005) 86.9 fL MCH (test code = 1006) 31.4 PG MCHC (test code = 1007) 36.1 G/DL RDW (test code = 1038) 13.1 % NEUTROPHILS (test code = 1008) 65.5 % LYMPHOCYTES (test code = 1010) 26.7 % MONOCYTES (test code = 1011) 4.9 % EOSINOPHILS (test code = 1012) 2.1 % BASOPHILS (test code = 1013) 0.4 % IMMATURE GRANULOCYTES (test 0.4 % code = 1036) NUCLEATED RBCS (test code = 0.0 /100WBC'S 1065) PLATELET COUNT (test code = 248 K/UL 1015) ABSOLUTE NEUTROPHILS (test code 4.43 K/UL = 1066) ABSOLUTE LYMPHOCYTES (test code 1.81 K/UL = 1067) ABSOLUTE MONOCYTES (test code = 0.33 K/UL 1068) ABSOLUTE EOSINOPHILS (test code 0.14 K/UL = 1040) ABSOLUTE BASOPHILS (test code = 0.03 K/UL 1069) ABS IMMATURE GRANULOCYTES (test 0.03 K/UL code = 1020) ABS NUCLEATED RBCS (test code = 0.02 K/UL 55278) HEMOGLOBIN [id number] 00:00:00 Test Item Value Reference Range Interpretation Comments HEMOGLOBIN A1c (test code = 68208) 8.7 % HEMOGLOBIN [id number] 00:00:00 Test Item Value Reference Range Interpretation Comments HEMOGLOBIN A1c (test code = 39859) 8.7 % HEMOGLOBIN [id number] 00:00:00 Test Item Value Reference Range Interpretation Comments HEMOGLOBIN A1c (test code = 30277) 8.7 % CBC W/AUTO [id number] 00:00:00 Test Item Value Reference Range Interpretation Comments WBC (test code = 1001) 6.8 K/UL RBC (test code = 1002) 4.97 M/UL HEMOGLOBIN (test code = 1003) 15.6 G/DL HEMATOCRIT (test code = 1004) 43.2 % MCV (test code = 1005) 86.9 fL MCH (test code = 1006) 31.4 PG MCHC (test code = 1007) 36.1 G/DL RDW (test code = 1038) 13.1 % NEUTROPHILS (test code = 1008) 65.5 % LYMPHOCYTES (test code = 1010) 26.7 % MONOCYTES (test code = 1011) 4.9 % EOSINOPHILS (test code = 1012) 2.1 % BASOPHILS (test code = 1013) 0.4 % IMMATURE GRANULOCYTES (test 0.4 % code = 1036) NUCLEATED RBCS (test code = 0.0 /100WBC'S 1065) PLATELET COUNT (test code = 248 K/UL 1015) ABSOLUTE NEUTROPHILS (test code 4.43 K/UL = 1066) ABSOLUTE LYMPHOCYTES (test code 1.81 K/UL = 1067) ABSOLUTE MONOCYTES (test code = 0.33 K/UL 1068) ABSOLUTE EOSINOPHILS (test code 0.14 K/UL = 1040) ABSOLUTE BASOPHILS (test code = 0.03 K/UL 1069) ABS IMMATURE GRANULOCYTES (test 0.03 K/UL code = 1020) ABS NUCLEATED RBCS (test code = 0.02 K/UL 94420) CBC W/AUTO [id number] 00:00:00 Test Item Value Reference Range Interpretation Comments WBC (test code = 1001) 6.8 K/UL RBC (test code = 1002) 4.97 M/UL HEMOGLOBIN (test code = 1003) 15.6 G/DL HEMATOCRIT (test code = 1004) 43.2 % MCV (test code = 1005) 86.9 fL MCH (test code = 1006) 31.4 PG MCHC (test code = 1007) 36.1 G/DL RDW (test code = 1038) 13.1 % NEUTROPHILS (test code = 1008) 65.5 % LYMPHOCYTES (test code = 1010) 26.7 % MONOCYTES (test code = 1011) 4.9 % EOSINOPHILS (test code = 1012) 2.1 % BASOPHILS (test code = 1013) 0.4 % IMMATURE GRANULOCYTES (test 0.4 % code = 1036) NUCLEATED RBCS (test code = 0.0 /100WBC'S 1065) PLATELET COUNT (test code = 248 K/UL 1015) ABSOLUTE NEUTROPHILS (test code 4.43 K/UL = 1066) ABSOLUTE LYMPHOCYTES (test code 1.81 K/UL = 1067) ABSOLUTE MONOCYTES (test code = 0.33 K/UL 1068) ABSOLUTE EOSINOPHILS (test code 0.14 K/UL = 1040) ABSOLUTE BASOPHILS (test code = 0.03 K/UL 1069) ABS IMMATURE GRANULOCYTES (test 0.03 K/UL code = 1020) ABS NUCLEATED RBCS (test code = 0.02 K/UL 81441) CBC W/AUTO [id number] 00:00:00 Test Item Value Reference Range Interpretation Comments WBC (test code = 1001) 6.8 K/UL RBC (test code = 1002) 4.97 M/UL HEMOGLOBIN (test code = 1003) 15.6 G/DL HEMATOCRIT (test code = 1004) 43.2 % MCV (test code = 1005) 86.9 fL MCH (test code = 1006) 31.4 PG MCHC (test code = 1007) 36.1 G/DL RDW (test code = 1038) 13.1 % NEUTROPHILS (test code = 1008) 65.5 % LYMPHOCYTES (test code = 1010) 26.7 % MONOCYTES (test code = 1011) 4.9 % EOSINOPHILS (test code = 1012) 2.1 % BASOPHILS (test code = 1013) 0.4 % IMMATURE GRANULOCYTES (test 0.4 % code = 1036) NUCLEATED RBCS (test code = 0.0 /100WBC'S 1065) PLATELET COUNT (test code = 248 K/UL 1015) ABSOLUTE NEUTROPHILS (test code 4.43 K/UL = 1066) ABSOLUTE LYMPHOCYTES (test code 1.81 K/UL = 1067) ABSOLUTE MONOCYTES (test code = 0.33 K/UL 1068) ABSOLUTE EOSINOPHILS (test code 0.14 K/UL = 1040) ABSOLUTE BASOPHILS (test code = 0.03 K/UL 1069) ABS IMMATURE GRANULOCYTES (test 0.03 K/UL code = 1020) ABS NUCLEATED RBCS (test code = 0.02 K/UL 96873) HEMOGLOBIN [id number] 00:00:00 Test Item Value Reference Range Interpretation Comments HEMOGLOBIN A1c (test code = 27259) 8.7 % HEMOGLOBIN [id number] 00:00:00 Test Item Value Reference Range Interpretation Comments HEMOGLOBIN A1c (test code = 97914) 8.7 % HEMOGLOBIN [id number] 00:00:00 Test Item Value Reference Range Interpretation Comments HEMOGLOBIN A1c (test code = 97295) 8.7 % CBC W/AUTO [id number] 00:00:00 Test Item Value Reference Range Interpretation Comments WBC (test code = 1001) 6.8 K/UL RBC (test code = 1002) 4.97 M/UL HEMOGLOBIN (test code = 1003) 15.6 G/DL HEMATOCRIT (test code = 1004) 43.2 % MCV (test code = 1005) 86.9 fL MCH (test code = 1006) 31.4 PG MCHC (test code = 1007) 36.1 G/DL RDW (test code = 1038) 13.1 % NEUTROPHILS (test code = 1008) 65.5 % LYMPHOCYTES (test code = 1010) 26.7 % MONOCYTES (test code = 1011) 4.9 % EOSINOPHILS (test code = 1012) 2.1 % BASOPHILS (test code = 1013) 0.4 % IMMATURE GRANULOCYTES (test 0.4 % code = 1036) NUCLEATED RBCS (test code = 0.0 /100WBC'S 1065) PLATELET COUNT (test code = 248 K/UL 1015) ABSOLUTE NEUTROPHILS (test code 4.43 K/UL = 1066) ABSOLUTE LYMPHOCYTES (test code 1.81 K/UL = 1067) ABSOLUTE MONOCYTES (test code = 0.33 K/UL 1068) ABSOLUTE EOSINOPHILS (test code 0.14 K/UL = 1040) ABSOLUTE BASOPHILS (test code = 0.03 K/UL 1069) ABS IMMATURE GRANULOCYTES (test 0.03 K/UL code = 1020) ABS NUCLEATED RBCS (test code = 0.02 K/UL 31829) CBC W/AUTO [id number] 00:00:00 Test Item Value Reference Range Interpretation Comments WBC (test code = 1001) 6.8 K/UL RBC (test code = 1002) 4.97 M/UL HEMOGLOBIN (test code = 1003) 15.6 G/DL HEMATOCRIT (test code = 1004) 43.2 % MCV (test code = 1005) 86.9 fL MCH (test code = 1006) 31.4 PG MCHC (test code = 1007) 36.1 G/DL RDW (test code = 1038) 13.1 % NEUTROPHILS (test code = 1008) 65.5 % LYMPHOCYTES (test code = 1010) 26.7 % MONOCYTES (test code = 1011) 4.9 % EOSINOPHILS (test code = 1012) 2.1 % BASOPHILS (test code = 1013) 0.4 % IMMATURE GRANULOCYTES (test 0.4 % code = 1036) NUCLEATED RBCS (test code = 0.0 /100WBC'S 1065) PLATELET COUNT (test code = 248 K/UL 1015) ABSOLUTE NEUTROPHILS (test code 4.43 K/UL = 1066) ABSOLUTE LYMPHOCYTES (test code 1.81 K/UL = 1067) ABSOLUTE MONOCYTES (test code = 0.33 K/UL 1068) ABSOLUTE EOSINOPHILS (test code 0.14 K/UL = 1040) ABSOLUTE BASOPHILS (test code = 0.03 K/UL 1069) ABS IMMATURE GRANULOCYTES (test 0.03 K/UL code = 1020) ABS NUCLEATED RBCS (test code = 0.02 K/UL 31661) CBC W/AUTO [id number] 00:00:00 Test Item Value Reference Range Interpretation Comments WBC (test code = 1001) 6.8 K/UL RBC (test code = 1002) 4.97 M/UL HEMOGLOBIN (test code = 1003) 15.6 G/DL HEMATOCRIT (test code = 1004) 43.2 % MCV (test code = 1005) 86.9 fL MCH (test code = 1006) 31.4 PG MCHC (test code = 1007) 36.1 G/DL RDW (test code = 1038) 13.1 % NEUTROPHILS (test code = 1008) 65.5 % LYMPHOCYTES (test code = 1010) 26.7 % MONOCYTES (test code = 1011) 4.9 % EOSINOPHILS (test code = 1012) 2.1 % BASOPHILS (test code = 1013) 0.4 % IMMATURE GRANULOCYTES (test 0.4 % code = 1036) NUCLEATED RBCS (test code = 0.0 /100WBC'S 1065) PLATELET COUNT (test code = 248 K/UL 1015) ABSOLUTE NEUTROPHILS (test code 4.43 K/UL = 1066) ABSOLUTE LYMPHOCYTES (test code 1.81 K/UL = 1067) ABSOLUTE MONOCYTES (test code = 0.33 K/UL 1068) ABSOLUTE EOSINOPHILS (test code 0.14 K/UL = 1040) ABSOLUTE BASOPHILS (test code = 0.03 K/UL 1069) ABS IMMATURE GRANULOCYTES (test 0.03 K/UL code = 1020) ABS NUCLEATED RBCS (test code = 0.02 K/UL 11154) [id number] 04:11:20 Test Item Value Reference Range Interpretation Comments LIPASE (test code = 2058) 18 U/L 13-60 [id number] 04:11:20 Test Item Value Reference Range Interpretation Comments AMYLASE (test code = 41 U/L 28-100 UNLESS OTHERWISE 2205) INDICATED, [facility] [address] [facility], [place] [id number] [place] [address] DIRECTOR: Rolly LEONARDIA NUMBER [id number] CAP ACCREDITATION N O. [id number] 00:00:00 Test Item Value Reference Range Interpretation Comments AMYLASE (test code = 2205) 41 U/L [id number] 00:00:00 Test Item Value Reference Range Interpretation Comments LIPASE (test code = 2057) 18 U/L [id number] 00:00:00 Test Item Value Reference Range Interpretation Comments LIPASE (test code = 2057) 18 U/L [id number] 00:00:00 Test Item Value Reference Range Interpretation Comments LIPASE (test code = 2057) 18 U/L [id number] 00:00:00 Test Item Value Reference Range Interpretation Comments AMYLASE (test code = 2205) 41 U/L [id number] 00:00:00 Test Item Value Reference Range Interpretation Comments AMYLASE (test code = 2204) 41 U/L [id number] 00:00:00 Test Item Value Reference Range Interpretation Comments LIPASE (test code = 2057) 18 U/L [id number] 00:00:00 Test Item Value Reference Range Interpretation Comments LIPASE (test code = 2057) 18 U/L [id number] 00:00:00 Test Item Value Reference Range Interpretation Comments LIPASE (test code = 2057) 18 U/L [id number] 00:00:00 Test Item Value Reference Range Interpretation Comments AMYLASE (test code = 2205) 41 U/L [id number] 00:00:00 Test Item Value Reference Range Interpretation Comments AMYLASE (test code = 5) 41 U/L [id number] 00:00:00 Test Item Value Reference Range Interpretation Comments LIPASE (test code = 2057) 18 U/L [id number] 00:00:00 Test Item Value Reference Range Interpretation Comments LIPASE (test code = 2057) 18 U/L HEMOGLOBIN [id number] 05:11:03 Test Item Value Reference Range Interpretation Comments HEMOGLOBIN A1c (test 8.2 % 4.2-5.6 H [employer] AN DIABETES code = 41032) ASSOCIATION [employer] FOR HGB A1C: PREDIABETES/INC REASED RISK . . . . . . . 5.7 -6.4% DIAGNOSIS OF DI ABETES . . . . . . . . . >=6 .5% WITH CONFIRMATION OR APPROPRIATE SYMPTOMS NOTE: ASSAY MAY BE AFFECTED BY HEMOGLOBINOPATH IES (SICKLE CELL ANEMIA, S- C DISEASE, OTHERS) OR SUHAS FICIALLY LOWERED BY DECR EASED RED CELL SURVIVAL ( HEMOLYTIC ANEMIAS, BLOOD LOSS, ETC.). CONSIDER ALTERN ATE TESTING OR LABORATORY C ONSULTATION. COMPREHENSIVE METABOLIC [id number] 04:59:22 Test Item Value Reference Range Interpretation Comments GLUCOSE (test code = 216 MG/DL 70-99 H 2216) BUN (test code = 7 MG/DL 6-20 2207) CREATININE (test 0.35 MG/DL 0.60-1.30 L code = 221) eGFR (2020 CKD-EPI) 127 >60 (test code = 30156) ML/MIN/1.73 CALC BUN/CREAT (test 20 RATIO 6-28 code = 2235) SODIUM (test code = 134 MEQ/L 339-026 2153) POTASSIUM (test code 4.0 MEQ/L 3.5-5.4 = 2227) CHLORIDE (test code 100 MEQ/L 95-107 = 2214) CARBON DIOXIDE (test 21 MEQ/L 19-31 code = 2206) CALCIUM (test code = 8.8 MG/DL 8.5-10.5 2208) PROTEIN, TOTAL (test 6.5 G/DL 6.1-8.3 code = 222) ALBUMIN (test code = 3.7 G/DL 3.5-5.2 2200) CALC GLOBULIN (test 2.8 G/DL 1.9-3.7 code = 2240) CALC A/G RATIO (test 1.3 RATIO 1.0-2.6 code = 2234) BILIRUBIN, TOTAL <0.2 MG/DL See_Comment [Automated message] (test code = 2207) The [employer] scan[employer] which generated this result transmit [place] reference range : <=1.2. The refe rence range was not u sed to interpret th is result as normal/abnormal . ALKALINE PHOSPHATASE 111 U/L 40-120 (test code = 2204) AST (test code = 23 U/L 9-40 2217) ALT (test code = <5 U/L 5-40 L 2218) LIPID [id number] 04:59:22 Test Item Value Reference Range Interpretation [...] MOREINFORMATION , SEE CLIENT ANNOUNCE MENT AT [email or web address] CalcLDL-C RISK RATIO LDL/HDL 7.20 RATIO <3.22 H UNABLE T O CALCULATE (test code = 2238) UNLESS OT HERWISE INDICATED, ALL TESTING PERFORMED [facility] PATHOLOG[facility] LABOR [facility] [address] [place] [address] 4 LABORATORY DIRE CTOR: MARLENE STEVENS M.D. CLIA NUMBER [id number] [place]. [id number] CBC W/AUTO DIFF WITH [id number] 04:14:18 Test Item Value Reference Range Interpretation [...] = 1036) NUCLEATED RBCS (test 0.0 /100 WBC'S See_Comment [Aut omated code = 1065) message] The sy stem which generated this [...] RBCS 0.00 K/UL 0.00-0.11 (test code = 55668) COMPREHENSIVE METABOLIC [id number] 00:00:00 Test Item Value Reference Range Interpretation Comments GLUCOSE (test code = 2217) 216 MG/DL BUN (test code = 2208) 7 MG/DL CREATININE (test code = 2214) 0.35 MG/DL eGFR (2020 CKD-EPI) (test 127 ML/MIN/1.73 code = 39729) CALC BUN/CREAT (test code = 20 RATIO 2235) SODIUM (test code = 2231) 134 MEQ/L POTASSIUM (test code = 2228) 4.0 MEQ/L CHLORIDE (test code = 2215) 100 MEQ/L CARBON DIOXIDE (test code = 21 MEQ/L 2205) CALCIUM (test code = 2209) 8.8 MG/DL PROTEIN, TOTAL (test code = 6.5 G/DL 2229) ALBUMIN (test code = 2201) 3.7 G/DL CALC GLOBULIN (test code = 2.8 G/DL 2240) CALC A/G RATIO (test code = 1.3 RATIO 2234) BILIRUBIN, TOTAL (test code = <0.2 MG/DL 2206) ALKALINE PHOSPHATASE (test 111 U/L code = 2204) AST (test code = 2218) 23 U/L ALT (test code = 2219) <5 U/L HEMOGLOBIN [id number] 00:00:00 Test Item Value Reference Range Interpretation Comments HEMOGLOBIN A1c (test code = 93677) 8.2 % HEMOGLOBIN [id number] 00:00:00 Test Item Value Reference Range Interpretation Comments HEMOGLOBIN A1c (test code = 37459) 8.2 % LIPID [id number] 00:00:00 Test Item Value Reference Range Interpretation Comments CHOLESTEROL (test code = 2210) 539 MG/DL TRIGLYCERIDES (test code = 2232) 2237 MG/DL HDL CHOLESTEROL (test code = 25 MG/DL 0) CALC LDL CHOL (test code = 2237) (NOTE) MG/DL RISK RATIO LDL/HDL (test code = 7.20 RATIO 2238) CBC W/AUTO [id number] 00:00:00 Test Item Value Reference Range Interpretation Comments WBC (test code = 1001) 9.8 K/UL RBC (test code = 1002) 4.76 M/UL HEMOGLOBIN (test code = 1003) 14.7 G/DL HEMATOCRIT (test code = 1004) 41.4 % MCV (test code = 1005) 87.0 fL MCH (test code = 1006) 30.9 PG MCHC (test code = 1007) 35.5 G/DL RDW (test code = 1038) 12.8 % NEUTROPHILS (test code = 1008) 66.8 % LYMPHOCYTES (test code = 1010) 25.6 % MONOCYTES (test code = 1011) 5.3 % EOSINOPHILS (test code = 1012) 1.5 % BASOPHILS (test code = 1013) 0.2 % IMMATURE GRANULOCYTES (test 0.6 % code = 1036) NUCLEATED RBCS (test code = 0.0 /100WBC'S 1065) PLATELET COUNT (test code = 275 K/UL 1015) ABSOLUTE NEUTROPHILS (test code 6.56 K/UL = 1066) ABSOLUTE LYMPHOCYTES (test code 2.52 K/UL = 1067) ABSOLUTE MONOCYTES (test code = 0.52 K/UL 1068) ABSOLUTE EOSINOPHILS (test code 0.15 K/UL = 1040) ABSOLUTE BASOPHILS (test code = 0.02 K/UL 1069) ABS IMMATURE GRANULOCYTES (test 0.06 K/UL code = 1020) ABS NUCLEATED RBCS (test code = 0.00 K/UL 04189) CBC W/AUTO [id number] 00:00:00 Test Item Value Reference Range Interpretation Comments WBC (test code = 1001) 9.8 K/UL RBC (test code = 1002) 4.76 M/UL HEMOGLOBIN (test code = 1003) 14.7 G/DL HEMATOCRIT (test code = 1004) 41.4 % MCV (test code = 1005) 87.0 fL MCH (test code = 1006) 30.9 PG MCHC (test code = 1007) 35.5 G/DL RDW (test code = 1038) 12.8 % NEUTROPHILS (test code = 1008) 66.8 % LYMPHOCYTES (test code = 1010) 25.6 % MONOCYTES (test code = 1011) 5.3 % EOSINOPHILS (test code = 1012) 1.5 % BASOPHILS (test code = 1013) 0.2 % IMMATURE GRANULOCYTES (test 0.6 % code = 1036) NUCLEATED RBCS (test code = 0.0 /100WBC'S 1065) PLATELET COUNT (test code = 275 K/UL 1015) ABSOLUTE NEUTROPHILS (test code 6.56 K/UL = 1066) ABSOLUTE LYMPHOCYTES (test code 2.52 K/UL = 1067) ABSOLUTE MONOCYTES (test code = 0.52 K/UL 1068) ABSOLUTE EOSINOPHILS (test code 0.15 K/UL = 1040) ABSOLUTE BASOPHILS (test code = 0.02 K/UL 1069) ABS IMMATURE GRANULOCYTES (test 0.06 K/UL code = 1020) ABS NUCLEATED RBCS (test code = 0.00 K/UL 06900) CBC W/AUTO [id number] 00:00:00 Test Item Value Reference Range Interpretation Comments WBC (test code = 1001) 9.8 K/UL RBC (test code = 1002) 4.76 M/UL HEMOGLOBIN (test code = 1003) 14.7 G/DL HEMATOCRIT (test code = 1004) 41.4 % MCV (test code = 1005) 87.0 fL MCH (test code = 1006) 30.9 PG MCHC (test code = 1007) 35.5 G/DL RDW (test code = 1038) 12.8 % NEUTROPHILS (test code = 1008) 66.8 % LYMPHOCYTES (test code = 1010) 25.6 % MONOCYTES (test code = 1011) 5.3 % EOSINOPHILS (test code = 1012) 1.5 % BASOPHILS (test code = 1013) 0.2 % IMMATURE GRANULOCYTES (test 0.6 % code = 1036) NUCLEATED RBCS (test code = 0.0 /100WBC'S 1065) PLATELET COUNT (test code = 275 K/UL 1015) ABSOLUTE NEUTROPHILS (test code 6.56 K/UL = 1066) ABSOLUTE LYMPHOCYTES (test code 2.52 K/UL = 1067) ABSOLUTE MONOCYTES (test code = 0.52 K/UL 1068) ABSOLUTE EOSINOPHILS (test code 0.15 K/UL = 1040) ABSOLUTE BASOPHILS (test code = 0.02 K/UL 1069) ABS IMMATURE GRANULOCYTES (test 0.06 K/UL code = 1020) ABS NUCLEATED RBCS (test code = 0.00 K/UL 17668) COMPREHENSIVE METABOLIC [id number] 00:00:00 Test Item Value Reference Range Interpretation Comments GLUCOSE (test code = 2217) 216 MG/DL BUN (test code = 2208) 7 MG/DL CREATININE (test code = 2214) 0.35 MG/DL eGFR (2020 CKD-EPI) (test 127 ML/MIN/1.73 code = 11594) CALC BUN/CREAT (test code = 20 RATIO 2235) SODIUM (test code = 2231) 134 MEQ/L POTASSIUM (test code = 2228) 4.0 MEQ/L CHLORIDE (test code = 2215) 100 MEQ/L CARBON DIOXIDE (test code = 21 MEQ/L 220) CALCIUM (test code = 2209) 8.8 MG/DL PROTEIN, TOTAL (test code = 6.5 G/DL 2228) ALBUMIN (test code = 2201) 3.7 G/DL CALC GLOBULIN (test code = 2.8 G/DL 2240) CALC A/G RATIO (test code = 1.3 RATIO 2234) BILIRUBIN, TOTAL (test code = <0.2 MG/DL 2206) ALKALINE PHOSPHATASE (test 111 U/L code = 2204) AST (test code = 2218) 23 U/L ALT (test code = 2219) <5 U/L COMPREHENSIVE METABOLIC [id number] 00:00:00 Test Item Value Reference Range Interpretation Comments GLUCOSE (test code = 2217) 216 MG/DL BUN (test code = 2208) 7 MG/DL CREATININE (test code = 2214) 0.35 MG/DL eGFR (2020 CKD-EPI) (test 127 ML/MIN/1.73 code = 77293) CALC BUN/CREAT (test code = 20 RATIO 2235) SODIUM (test code = 2231) 134 MEQ/L POTASSIUM (test code = 2228) 4.0 MEQ/L CHLORIDE (test code = 2215) 100 MEQ/L CARBON DIOXIDE (test code = 21 MEQ/L 2205) CALCIUM (test code = 2209) 8.8 MG/DL PROTEIN, TOTAL (test code = 6.5 G/DL 2228) ALBUMIN (test code = 2201) 3.7 G/DL CALC GLOBULIN (test code = 2.8 G/DL 2239) CALC A/G RATIO (test code = 1.3 RATIO 2233) BILIRUBIN, TOTAL (test code = <0.2 MG/DL 2206) ALKALINE PHOSPHATASE (test 111 U/L code = 2204) AST (test code = 2218) 23 U/L ALT (test code = 2219) <5 U/L HEMOGLOBIN [id number] 00:00:00 Test Item Value Reference Range Interpretation Comments HEMOGLOBIN A1c (test code = 62769) 8.2 % HEMOGLOBIN [id number] 00:00:00 Test Item Value Reference Range Interpretation Comments HEMOGLOBIN A1c (test code = 71942) 8.2 % HEMOGLOBIN [id number] 00:00:00 Test Item Value Reference Range Interpretation Comments HEMOGLOBIN A1c (test code = 04677) 8.2 % LIPID [id number] 00:00:00 Test Item Value Reference Range Interpretation Comments CHOLESTEROL (test code = 2210) 539 MG/DL TRIGLYCERIDES (test code = 2232) 2237 MG/DL HDL CHOLESTEROL (test code = 25 MG/DL 2219) CALC LDL CHOL (test code = 2237) (NOTE) MG/DL RISK RATIO LDL/HDL (test code = 7.20 RATIO 2238) LIPID [id number] 00:00:00 Test Item Value Reference Range Interpretation Comments CHOLESTEROL (test code = 2210) 539 MG/DL TRIGLYCERIDES (test code = 2232) 2237 MG/DL HDL CHOLESTEROL (test code = 25 MG/DL 2220) CALC LDL CHOL (test code = 2237) (NOTE) MG/DL RISK RATIO LDL/HDL (test code = 7.20 RATIO 2238) CBC W/AUTO [id number] 00:00:00 Test Item Value Reference Range Interpretation Comments WBC (test code = 1001) 9.8 K/UL RBC (test code = 1002) 4.76 M/UL HEMOGLOBIN (test code = 1003) 14.7 G/DL HEMATOCRIT (test code = 1004) 41.4 % MCV (test code = 1005) 87.0 fL MCH (test code = 1006) 30.9 PG MCHC (test code = 1007) 35.5 G/DL RDW (test code = 1038) 12.8 % NEUTROPHILS (test code = 1008) 66.8 % LYMPHOCYTES (test code = 1010) 25.6 % MONOCYTES (test code = 1011) 5.3 % EOSINOPHILS (test code = 1012) 1.5 % BASOPHILS (test code = 1013) 0.2 % IMMATURE GRANULOCYTES (test 0.6 % code = 1036) NUCLEATED RBCS (test code = 0.0 /100WBC'S 1065) PLATELET COUNT (test code = 275 K/UL 1015) ABSOLUTE NEUTROPHILS (test code 6.56 K/UL = 1066) ABSOLUTE LYMPHOCYTES (test code 2.52 K/UL = 1067) ABSOLUTE MONOCYTES (test code = 0.52 K/UL 1068) ABSOLUTE EOSINOPHILS (test code 0.15 K/UL = 1040) ABSOLUTE BASOPHILS (test code = 0.02 K/UL 1069) ABS IMMATURE GRANULOCYTES (test 0.06 K/UL code = 1020) ABS NUCLEATED RBCS (test code = 0.00 K/UL 04848) CBC W/AUTO [id number] 00:00:00 Test Item Value Reference Range Interpretation Comments WBC (test code = 1001) 9.8 K/UL RBC (test code = 1002) 4.76 M/UL HEMOGLOBIN (test code = 1003) 14.7 G/DL HEMATOCRIT (test code = 1004) 41.4 % MCV (test code = 1005) 87.0 fL MCH (test code = 1006) 30.9 PG MCHC (test code = 1007) 35.5 G/DL RDW (test code = 1038) 12.8 % NEUTROPHILS (test code = 1008) 66.8 % LYMPHOCYTES (test code = 1010) 25.6 % MONOCYTES (test code = 1011) 5.3 % EOSINOPHILS (test code = 1012) 1.5 % BASOPHILS (test code = 1013) 0.2 % IMMATURE GRANULOCYTES (test 0.6 % code = 1036) NUCLEATED RBCS (test code = 0.0 /100WBC'S 1065) PLATELET COUNT (test code = 275 K/UL 1015) ABSOLUTE NEUTROPHILS (test code 6.56 K/UL = 1066) ABSOLUTE LYMPHOCYTES (test code 2.52 K/UL = 1067) ABSOLUTE MONOCYTES (test code = 0.52 K/UL 1068) ABSOLUTE EOSINOPHILS (test code 0.15 K/UL = 1040) ABSOLUTE BASOPHILS (test code = 0.02 K/UL 1069) ABS IMMATURE GRANULOCYTES (test 0.06 K/UL code = 1020) ABS NUCLEATED RBCS (test code = 0.00 K/UL 34386) CBC W/AUTO [id number] 00:00:00 Test Item Value Reference Range Interpretation Comments WBC (test code = 1001) 9.8 K/UL RBC (test code = 1002) 4.76 M/UL HEMOGLOBIN (test code = 1003) 14.7 G/DL HEMATOCRIT (test code = 1004) 41.4 % MCV (test code = 1005) 87.0 fL MCH (test code = 1006) 30.9 PG MCHC (test code = 1007) 35.5 G/DL RDW (test code = 1038) 12.8 % NEUTROPHILS (test code = 1008) 66.8 % LYMPHOCYTES (test code = 1010) 25.6 % MONOCYTES (test code = 1011) 5.3 % EOSINOPHILS (test code = 1012) 1.5 % BASOPHILS (test code = 1013) 0.2 % IMMATURE GRANULOCYTES (test 0.6 % code = 1036) NUCLEATED RBCS (test code = 0.0 /100WBC'S 1065) PLATELET COUNT (test code = 275 K/UL 1015) ABSOLUTE NEUTROPHILS (test code 6.56 K/UL = 1066) ABSOLUTE LYMPHOCYTES (test code 2.52 K/UL = 1067) ABSOLUTE MONOCYTES (test code = 0.52 K/UL 1068) ABSOLUTE EOSINOPHILS (test code 0.15 K/UL = 1040) ABSOLUTE BASOPHILS (test code = 0.02 K/UL 1069) ABS IMMATURE GRANULOCYTES (test 0.06 K/UL code = 1020) ABS NUCLEATED RBCS (test code = 0.00 K/UL 26084) COMPREHENSIVE METABOLIC [id number] 00:00:00 Test Item Value Reference Range Interpretation Comments GLUCOSE (test code = 2217) 216 MG/DL BUN (test code = 2208) 7 MG/DL CREATININE (test code = 2214) 0.35 MG/DL eGFR (2020 CKD-EPI) (test 127 ML/MIN/1.73 code = 99855) CALC BUN/CREAT (test code = 20 RATIO 2235) SODIUM (test code = 2231) 134 MEQ/L POTASSIUM (test code = 2228) 4.0 MEQ/L CHLORIDE (test code = 2215) 100 MEQ/L CARBON DIOXIDE (test code = 21 MEQ/L 2205) CALCIUM (test code = 2209) 8.8 MG/DL PROTEIN, TOTAL (test code = 6.5 G/DL 2228) ALBUMIN (test code = 2201) 3.7 G/DL CALC GLOBULIN (test code = 2.8 G/DL 2240) CALC A/G RATIO (test code = 1.3 RATIO 2234) BILIRUBIN, TOTAL (test code = <0.2 MG/DL 2206) ALKALINE PHOSPHATASE (test 111 U/L code = 2204) AST (test code = 2218) 23 U/L ALT (test code = 2219) <5 U/L COMPREHENSIVE METABOLIC [id number] 00:00:00 Test Item Value Reference Range Interpretation Comments GLUCOSE (test code = 2217) 216 MG/DL BUN (test code = 2208) 7 MG/DL CREATININE (test code = 2214) 0.35 MG/DL eGFR (2020 CKD-EPI) (test 127 ML/MIN/1.73 code = 39101) CALC BUN/CREAT (test code = 20 RATIO 2235) SODIUM (test code = 2231) 134 MEQ/L POTASSIUM (test code = 2228) 4.0 MEQ/L CHLORIDE (test code = 2215) 100 MEQ/L CARBON DIOXIDE (test code = 21 MEQ/L 2205) CALCIUM (test code = 2209) 8.8 MG/DL PROTEIN, TOTAL (test code = 6.5 G/DL 2228) ALBUMIN (test code = 2201) 3.7 G/DL CALC GLOBULIN (test code = 2.8 G/DL 2239) CALC A/G RATIO (test code = 1.3 RATIO 2233) BILIRUBIN, TOTAL (test code = <0.2 MG/DL 2206) ALKALINE PHOSPHATASE (test 111 U/L code = 2204) AST (test code = 2218) 23 U/L ALT (test code = 2219) <5 U/L HEMOGLOBIN [id number] 00:00:00 Test Item Value Reference Range Interpretation Comments HEMOGLOBIN A1c (test code = 95476) 8.2 % HEMOGLOBIN [id number] 00:00:00 Test Item Value Reference Range Interpretation Comments HEMOGLOBIN A1c (test code = 05145) 8.2 % HEMOGLOBIN [id number] 00:00:00 Test Item Value Reference Range Interpretation Comments HEMOGLOBIN A1c (test code = 82284) 8.2 % LIPID [id number] 00:00:00 Test Item Value Reference Range Interpretation Comments CHOLESTEROL (test code = 2210) 539 MG/DL TRIGLYCERIDES (test code = 2232) 2237 MG/DL HDL CHOLESTEROL (test code = 25 MG/DL 2220) CALC LDL CHOL (test code = 2237) (NOTE) MG/DL RISK RATIO LDL/HDL (test code = 7.20 RATIO 2238) LIPID [id number] 00:00:00 Test Item Value Reference Range Interpretation Comments CHOLESTEROL (test code = 2210) 539 MG/DL TRIGLYCERIDES (test code = 2232) 2237 MG/DL HDL CHOLESTEROL (test code = 25 MG/DL 2220) CALC LDL CHOL (test code = 2237) (NOTE) MG/DL RISK RATIO LDL/HDL (test code = 7.20 RATIO 2238) CBC W/AUTO [id number] 00:00:00 Test Item Value Reference Range Interpretation Comments WBC (test code = 1001) 9.8 K/UL RBC (test code = 1002) 4.76 M/UL HEMOGLOBIN (test code = 1003) 14.7 G/DL HEMATOCRIT (test code = 1004) 41.4 % MCV (test code = 1005) 87.0 fL MCH (test code = 1006) 30.9 PG MCHC (test code = 1007) 35.5 G/DL RDW (test code = 1038) 12.8 % NEUTROPHILS (test code = 1008) 66.8 % LYMPHOCYTES (test code = 1010) 25.6 % MONOCYTES (test code = 1011) 5.3 % EOSINOPHILS (test code = 1012) 1.5 % BASOPHILS (test code = 1013) 0.2 % IMMATURE GRANULOCYTES (test 0.6 % code = 1036) NUCLEATED RBCS (test code = 0.0 /100WBC'S 1065) PLATELET COUNT (test code = 275 K/UL 1015) ABSOLUTE NEUTROPHILS (test code 6.56 K/UL = 1066) ABSOLUTE LYMPHOCYTES (test code 2.52 K/UL = 1067) ABSOLUTE MONOCYTES (test code = 0.52 K/UL 1068) ABSOLUTE EOSINOPHILS (test code 0.15 K/UL = 1040) ABSOLUTE BASOPHILS (test code = 0.02 K/UL 1069) ABS IMMATURE GRANULOCYTES (test 0.06 K/UL code = 1020) ABS NUCLEATED RBCS (test code = 0.00 K/UL 23951) CBC W/AUTO [id number] 00:00:00 Test Item Value Reference Range Interpretation Comments WBC (test code = 1001) 9.8 K/UL RBC (test code = 1002) 4.76 M/UL HEMOGLOBIN (test code = 1003) 14.7 G/DL HEMATOCRIT (test code = 1004) 41.4 % MCV (test code = 1005) 87.0 fL MCH (test code = 1006) 30.9 PG MCHC (test code = 1007) 35.5 G/DL RDW (test code = 1038) 12.8 % NEUTROPHILS (test code = 1008) 66.8 % LYMPHOCYTES (test code = 1010) 25.6 % MONOCYTES (test code = 1011) 5.3 % EOSINOPHILS (test code = 1012) 1.5 % BASOPHILS (test code = 1013) 0.2 % IMMATURE GRANULOCYTES (test 0.6 % code = 1036) NUCLEATED RBCS (test code = 0.0 /100WBC'S 1065) PLATELET COUNT (test code = 275 K/UL 1015) ABSOLUTE NEUTROPHILS (test code 6.56 K/UL = 1066) ABSOLUTE LYMPHOCYTES (test code 2.52 K/UL = 1067) ABSOLUTE MONOCYTES (test code = 0.52 K/UL 1068) ABSOLUTE EOSINOPHILS (test code 0.15 K/UL = 1040) ABSOLUTE BASOPHILS (test code = 0.02 K/UL 1069) ABS IMMATURE GRANULOCYTES (test 0.06 K/UL code = 1020) ABS NUCLEATED RBCS (test code = 0.00 K/UL 53335) [id number] 00:00:00 Test Item Value Reference Range Interpretation Comments LIPASE (test code = 2057) 14 U/L [id number] 00:00:00 Test Item Value Reference Range Interpretation Comments LIPASE (test code = 2057) 14 U/L [id number] 00:00:00 Test Item Value Reference Range Interpretation Comments AMYLASE (test code = 2204) 44 U/L [id number] 00:00:00 Test Item Value Reference Range Interpretation Comments AMYLASE (test code = 2204) 44 U/L [id number] 00:00:00 Test Item Value Reference Range Interpretation Comments LIPASE (test code = 2057) 14 U/L [id number] 00:00:00 Test Item Value Reference Range Interpretation Comments LIPASE (test code = 2057) 14 U/L [id number] 00:00:00 Test Item Value Reference Range Interpretation Comments LIPASE (test code = 2057) 14 U/L [id number] 00:00:00 Test Item Value Reference Range Interpretation Comments AMYLASE (test code = 2204) 44 U/L [id number] 00:00:00 Test Item Value Reference Range Interpretation Comments AMYLASE (test code = 2204) 44 U/L [id number] 00:00:00 Test Item Value Reference Range Interpretation Comments LIPASE (test code = 2057) 14 U/L [id number] 00:00:00 Test Item Value Reference Range Interpretation Comments LIPASE (test code = 2057) 14 U/L [id number] 00:00:00 Test Item Value Reference Range Interpretation Comments LIPASE (test code = 2057) 14 U/L [id number] 00:00:00 Test Item Value Reference Range Interpretation Comments AMYLASE (test code = 2205) 44 U/L LIPID [id number] 00:00:00 Test Item Value Reference Range Interpretation Comments CHOLESTEROL (test code = 2210) 346 MG/DL TRIGLYCERIDES (test code = 2232) 1167 MG/DL HDL CHOLESTEROL (test code = 37 MG/DL 2220) CALC LDL CHOL (test code = 2237) (NOTE) MG/DL RISK RATIO LDL/HDL (test code = (NOTE) RATIO 2238) COMPREHENSIVE METABOLIC [id number] 00:00:00 Test Item Value Reference Range Interpretation Comments GLUCOSE (test code = 2217) 127 MG/DL BUN (test code = 2208) 7 MG/DL CREATININE (test code = 2214) 0.53 MG/DL eGFR AMER. (test code 132 ML/MIN/1.73 = 67658) eGFR NON- AMER. (test 114 ML/MIN/1.73 code = 82210) CALC BUN/CREAT (test code = 13 RATIO 2235) SODIUM (test code = 2231) 143 MEQ/L POTASSIUM (test code = 2228) 4.8 MEQ/L CHLORIDE (test code = 2215) 103 MEQ/L CARBON DIOXIDE (test code = 24 MEQ/L 2205) CALCIUM (test code = 2209) 9.6 MG/DL PROTEIN, TOTAL (test code = 7.3 G/DL 2228) ALBUMIN (test code = 2201) 4.7 G/DL CALC GLOBULIN (test code = 2.6 G/DL 2240) CALC A/G RATIO (test code = 1.8 RATIO 2234) BILIRUBIN, TOTAL (test code = <0.2 MG/DL 2206) ALKALINE PHOSPHATASE (test 88 U/L code = 2204) AST (test code = 2218) 12 U/L ALT (test code = 2219) 12 U/L LIPID [id number] 00:00:00 Test Item Value Reference Range Interpretation Comments CHOLESTEROL (test code = 2210) 346 MG/DL TRIGLYCERIDES (test code = 2232) 1167 MG/DL HDL CHOLESTEROL (test code = 37 MG/DL 2220) CALC LDL CHOL (test code = 2237) (NOTE) MG/DL RISK RATIO LDL/HDL (test code = (NOTE) RATIO 2238) LIPID [id number] 00:00:00 Test Item Value Reference Range Interpretation Comments CHOLESTEROL (test code = 2210) 346 MG/DL TRIGLYCERIDES (test code = 2232) 1167 MG/DL HDL CHOLESTEROL (test code = 37 MG/DL 2220) CALC LDL CHOL (test code = 2237) (NOTE) MG/DL RISK RATIO LDL/HDL (test code = (NOTE) RATIO 2238) COMPREHENSIVE METABOLIC [id number] 00:00:00 Test Item Value Reference Range Interpretation Comments GLUCOSE (test code = 2217) 127 MG/DL BUN (test code = 2208) 7 MG/DL CREATININE (test code = 2214) 0.53 MG/DL eGFR AMER. (test code 132 ML/MIN/1.73 = 15928) eGFR NON- AMER. (test 114 ML/MIN/1.73 code = 51149) CALC BUN/CREAT (test code = 13 RATIO 2235) SODIUM (test code = 2231) 143 MEQ/L POTASSIUM (test code = 2228) 4.8 MEQ/L CHLORIDE (test code = 2215) 103 MEQ/L CARBON DIOXIDE (test code = 24 MEQ/L 2206) CALCIUM (test code = 2209) 9.6 MG/DL PROTEIN, TOTAL (test code = 7.3 G/DL 2228) ALBUMIN (test code = 2201) 4.7 G/DL CALC GLOBULIN (test code = 2.6 G/DL 2240) CALC A/G RATIO (test code = 1.8 RATIO 2234) BILIRUBIN, TOTAL (test code = <0.2 MG/DL 2206) ALKALINE PHOSPHATASE (test 88 U/L code = 2204) AST (test code = 2218) 12 U/L ALT (test code = 2219) 12 U/L COMPREHENSIVE METABOLIC [id number] 00:00:00 Test Item Value Reference Range Interpretation Comments GLUCOSE (test code = 2217) 127 MG/DL BUN (test code = 2208) 7 MG/DL CREATININE (test code = 2214) 0.53 MG/DL eGFR AMER. (test code 132 ML/MIN/1.73 = 18866) eGFR NON- AMER. (test 114 ML/MIN/1.73 code = 00036) CALC BUN/CREAT (test code = 13 RATIO 2235) SODIUM (test code = 2231) 143 MEQ/L POTASSIUM (test code = 2228) 4.8 MEQ/L CHLORIDE (test code = 2215) 103 MEQ/L CARBON DIOXIDE (test code = 24 MEQ/L 2205) CALCIUM (test code = 2209) 9.6 MG/DL PROTEIN, TOTAL (test code = 7.3 G/DL 2228) ALBUMIN (test code = 2201) 4.7 G/DL CALC GLOBULIN (test code = 2.6 G/DL 224) CALC A/G RATIO (test code = 1.8 RATIO 2234) BILIRUBIN, TOTAL (test code = <0.2 MG/DL 2206) ALKALINE PHOSPHATASE (test 88 U/L code = 2204) AST (test code = 2218) 12 U/L ALT (test code = 2219) 12 U/L LIPID [id number] 00:00:00 Test Item Value Reference Range Interpretation Comments CHOLESTEROL (test code = 2210) 346 MG/DL TRIGLYCERIDES (test code = 2232) 1167 MG/DL HDL CHOLESTEROL (test code = 37 MG/DL 2220) CALC LDL CHOL (test code = 2237) (NOTE) MG/DL RISK RATIO LDL/HDL (test code = (NOTE) RATIO 2238) LIPID [id number] 00:00:00 Test Item Value Reference Range Interpretation Comments CHOLESTEROL (test code = 2210) 346 MG/DL TRIGLYCERIDES (test code = 2232) 1167 MG/DL HDL CHOLESTEROL (test code = 37 MG/DL 2220) CALC LDL CHOL (test code = 2237) (NOTE) MG/DL RISK RATIO LDL/HDL (test code = (NOTE) RATIO 2238) COMPREHENSIVE METABOLIC [id number] 00:00:00 Test Item Value Reference Range Interpretation Comments GLUCOSE (test code = 2217) 127 MG/DL BUN (test code = 2208) 7 MG/DL CREATININE (test code = 2214) 0.53 MG/DL eGFR AMER. (test code 132 ML/MIN/1.73 = 05885) eGFR NON- AMER. (test 114 ML/MIN/1.73 code = 46102) CALC BUN/CREAT (test code = 13 RATIO 2235) SODIUM (test code = 2231) 143 MEQ/L POTASSIUM (test code = 2228) 4.8 MEQ/L CHLORIDE (test code = 2215) 103 MEQ/L CARBON DIOXIDE (test code = 24 MEQ/L 220) CALCIUM (test code = 2209) 9.6 MG/DL PROTEIN, TOTAL (test code = 7.3 G/DL 2228) ALBUMIN (test code = 2201) 4.7 G/DL CALC GLOBULIN (test code = 2.6 G/DL 2240) CALC A/G RATIO (test code = 1.8 RATIO 2234) BILIRUBIN, TOTAL (test code = <0.2 MG/DL 2206) ALKALINE PHOSPHATASE (test 88 U/L code = 2204) AST (test code = 2218) 12 U/L ALT (test code = 2219) 12 U/L COMPREHENSIVE METABOLIC [id number] 00:00:00 Test Item Value Reference Range Interpretation Comments GLUCOSE (test code = 2217) 127 MG/DL BUN (test code = 2208) 7 MG/DL CREATININE (test code = 2214) 0.53 MG/DL eGFR AMER. (test code 132 ML/MIN/1.73 = 28483) eGFR NON- AMER. (test 114 ML/MIN/1.73 code = 14671) CALC BUN/CREAT (test code = 13 RATIO 2235) SODIUM (test code = 2231) 143 MEQ/L POTASSIUM (test code = 2228) 4.8 MEQ/L CHLORIDE (test code = 2215) 103 MEQ/L CARBON DIOXIDE (test code = 24 MEQ/L 2205) CALCIUM (test code = 2209) 9.6 MG/DL PROTEIN, TOTAL (test code = 7.3 G/DL 2228) ALBUMIN (test code = 2201) 4.7 G/DL CALC GLOBULIN (test code = 2.6 G/DL 2240) CALC A/G RATIO (test code = 1.8 RATIO 2234) BILIRUBIN, TOTAL (test code = <0.2 MG/DL 2206) ALKALINE PHOSPHATASE (test 88 U/L code = 2204) AST (test code = 2218) 12 U/L ALT (test code = 2219) 12 U/L HEMOGLOBIN [id number] 00:00:00 Test Item Value Reference Range Interpretation Comments HEMOGLOBIN A1c (test code = 49346) 7.8 % HEMOGLOBIN [id number] 00:00:00 Test Item Value Reference Range Interpretation Comments HEMOGLOBIN A1c (test code = 09317) 7.8 % HEMOGLOBIN [id number] 00:00:00 Test Item Value Reference Range Interpretation Comments HEMOGLOBIN A1c (test code = 97179) 7.8 % HEMOGLOBIN [id number] 00:00:00 Test Item Value Reference Range Interpretation Comments HEMOGLOBIN A1c (test code = 95914) 7.8 % HEMOGLOBIN [id number] 00:00:00 Test Item Value Reference Range Interpretation Comments HEMOGLOBIN A1c (test code = 26025) 7.8 % HEMOGLOBIN [id number] 00:00:00 Test Item Value Reference Range Interpretation Comments HEMOGLOBIN A1c (test code = 01703) 7.8 % HEMOGLOBIN [id number] 00:00:00 Test Item Value Reference Range Interpretation Comments HEMOGLOBIN A1c (test code = 98171) 7.8 % HEMOGLOBIN [id number] 00:00:00 Test Item Value Reference Range Interpretation Comments HEMOGLOBIN A1c (test code = 37628) 7.8 % CBC W/AUTO [id number] 00:00:00 Test Item Value Reference Range Interpretation Comments WBC (test code = 1001) 8.7 K/UL RBC (test code = 1002) 4.82 M/UL HEMOGLOBIN (test code = 1003) 14.7 G/DL HEMATOCRIT (test code = 1004) 42.3 % MCV (test code = 1005) 87.8 fL MCH (test code = 1006) 30.5 PG MCHC (test code = 1007) 34.8 G/DL RDW (test code = 1038) 12.5 % NEUTROPHILS (test code = 1008) 68.1 % LYMPHOCYTES (test code = 1010) 24.9 % MONOCYTES (test code = 1011) 5.3 % EOSINOPHILS (test code = 1012) 1.5 % BASOPHILS (test code = 1013) 0.2 % PLATELET COUNT (test code = 1015) 270 K/UL CBC W/AUTO [id number] 00:00:00 Test Item Value Reference Range Interpretation Comments WBC (test code = 1001) 8.7 K/UL RBC (test code = 1002) 4.82 M/UL HEMOGLOBIN (test code = 1003) 14.7 G/DL HEMATOCRIT (test code = 1004) 42.3 % MCV (test code = 1005) 87.8 fL MCH (test code = 1006) 30.5 PG MCHC (test code = 1007) 34.8 G/DL RDW (test code = 1038) 12.5 % NEUTROPHILS (test code = 1008) 68.1 % LYMPHOCYTES (test code = 1010) 24.9 % MONOCYTES (test code = 1011) 5.3 % EOSINOPHILS (test code = 1012) 1.5 % BASOPHILS (test code = 1013) 0.2 % PLATELET COUNT (test code = 1015) 270 K/UL HEMOGLOBIN [id number] 00:00:00 Test Item Value Reference Range Interpretation Comments HEMOGLOBIN A1c (test code = 38539) 8.8 % HEMOGLOBIN [id number] 00:00:00 Test Item Value Reference Range Interpretation Comments HEMOGLOBIN A1c (test code = 46530) 8.8 % COMPREHENSIVE METABOLIC [id number] 00:00:00 Test Item Value Reference Range Interpretation Comments GLUCOSE (test code = 2217) 236 MG/DL BUN (test code = 2208) 9 MG/DL CREATININE (test code = 2214) 0.47 MG/DL eGFR AMER. (test code 137 ML/MIN/1.73 = 51119) eGFR NON- AMER. (test 118 ML/MIN/1.73 code = 99864) CALC BUN/CREAT (test code = 19 RATIO 2235) SODIUM (test code = 2231) 138 MEQ/L POTASSIUM (test code = 2228) 4.2 MEQ/L CHLORIDE (test code = 2215) 101 MEQ/L CARBON DIOXIDE (test code = 25 MEQ/L 2205) CALCIUM (test code = 2209) 10.2 MG/DL PROTEIN, TOTAL (test code = 6.8 G/DL 2228) ALBUMIN (test code = 2201) 4.3 G/DL CALC GLOBULIN (test code = 2.5 G/DL 0) CALC A/G RATIO (test code = 1.7 RATIO 2233) BILIRUBIN, TOTAL (test code = <0.2 MG/DL 2206) ALKALINE PHOSPHATASE (test 77 U/L code = 2204) AST (test code = 2218) 26 U/L ALT (test code = 2219) <5 U/L [id number] 00:00:00 Test Item Value Reference Range Interpretation Comments TSH, THIRD GENERATION (test code 1.060 UIU/ML = 2821) [id number] 00:00:00 Test Item Value Reference Range Interpretation Comments TSH, THIRD GENERATION (test code 1.060 UIU/ML = 2821) MICROALBUMIN/CREATININE, RANDOM AND [id number] 00:00:00 Test Item Value Reference Range Interpretation Comments CREATININE, URINE, CONC. (test 83.5 MG/DL code = 2072) ALBUMIN, URINE, RANDOM (test code 3.0 MG/DL = 93590) CALC ALBUMIN/CREAT, RND (test code 36 MG/G = 03975) VITAMIN D, 25 [id number] 00:00:00 Test Item Value Reference Range Interpretation Comments VITAMIN D, 25 OH (test code = 4958) 12 NG/ML CBC W/AUTO [id number] 00:00:00 Test Item Value Reference Range Interpretation Comments WBC (test code = 1001) 8.7 K/UL RBC (test code = 1002) 4.82 M/UL HEMOGLOBIN (test code = 1003) 14.7 G/DL HEMATOCRIT (test code = 1004) 42.3 % MCV (test code = 1005) 87.8 fL MCH (test code = 1006) 30.5 PG MCHC (test code = 1007) 34.8 G/DL RDW (test code = 1038) 12.5 % NEUTROPHILS (test code = 1008) 68.1 % LYMPHOCYTES (test code = 1010) 24.9 % MONOCYTES (test code = 1011) 5.3 % EOSINOPHILS (test code = 1012) 1.5 % BASOPHILS (test code = 1013) 0.2 % PLATELET COUNT (test code = 1015) 270 K/UL CBC W/AUTO [id number] 00:00:00 Test Item Value Reference Range Interpretation Comments WBC (test code = 1001) 8.7 K/UL RBC (test code = 1002) 4.82 M/UL HEMOGLOBIN (test code = 1003) 14.7 G/DL HEMATOCRIT (test code = 1004) 42.3 % MCV (test code = 1005) 87.8 fL MCH (test code = 1006) 30.5 PG MCHC (test code = 1007) 34.8 G/DL RDW (test code = 1038) 12.5 % NEUTROPHILS (test code = 1008) 68.1 % LYMPHOCYTES (test code = 1010) 24.9 % MONOCYTES (test code = 1011) 5.3 % EOSINOPHILS (test code = 1012) 1.5 % BASOPHILS (test code = 1013) 0.2 % PLATELET COUNT (test code = 1015) 270 K/UL CBC W/AUTO [id number] 00:00:00 Test Item Value Reference Range Interpretation Comments WBC (test code = 1001) 8.7 K/UL RBC (test code = 1002) 4.82 M/UL HEMOGLOBIN (test code = 1003) 14.7 G/DL HEMATOCRIT (test code = 1004) 42.3 % MCV (test code = 1005) 87.8 fL MCH (test code = 1006) 30.5 PG MCHC (test code = 1007) 34.8 G/DL RDW (test code = 1038) 12.5 % NEUTROPHILS (test code = 1008) 68.1 % LYMPHOCYTES (test code = 1010) 24.9 % MONOCYTES (test code = 1011) 5.3 % EOSINOPHILS (test code = 1012) 1.5 % BASOPHILS (test code = 1013) 0.2 % PLATELET COUNT (test code = 1015) 270 K/UL HEMOGLOBIN [id number] 00:00:00 Test Item Value Reference Range Interpretation Comments HEMOGLOBIN A1c (test code = 88582) 8.8 % HEMOGLOBIN [id number] 00:00:00 Test Item Value Reference Range Interpretation Comments HEMOGLOBIN A1c (test code = 72436) 8.8 % HEMOGLOBIN [id number] 00:00:00 Test Item Value Reference Range Interpretation Comments HEMOGLOBIN A1c (test code = 66151) 8.8 % COMPREHENSIVE METABOLIC [id number] 00:00:00 Test Item Value Reference Range Interpretation Comments GLUCOSE (test code = 2217) 236 MG/DL BUN (test code = 2208) 9 MG/DL CREATININE (test code = 2214) 0.47 MG/DL eGFR AMER. (test code 137 ML/MIN/1.73 = 02967) eGFR NON- AMER. (test 118 ML/MIN/1.73 code = 36198) CALC BUN/CREAT (test code = 19 RATIO 2235) SODIUM (test code = 2231) 138 MEQ/L POTASSIUM (test code = 2228) 4.2 MEQ/L CHLORIDE (test code = 2215) 101 MEQ/L CARBON DIOXIDE (test code = 25 MEQ/L 2205) CALCIUM (test code = 2209) 10.2 MG/DL PROTEIN, TOTAL (test code = 6.8 G/DL 2228) ALBUMIN (test code = 2201) 4.3 G/DL CALC GLOBULIN (test code = 2.5 G/DL 2240) CALC A/G RATIO (test code = 1.7 RATIO 2234) BILIRUBIN, TOTAL (test code = <0.2 MG/DL 2206) ALKALINE PHOSPHATASE (test 77 U/L code = 220) AST (test code = 2218) 26 U/L ALT (test code = 2219) <5 U/L COMPREHENSIVE METABOLIC [id number] 00:00:00 Test Item Value Reference Range Interpretation Comments GLUCOSE (test code = 2217) 236 MG/DL BUN (test code = 2208) 9 MG/DL CREATININE (test code = 2214) 0.47 MG/DL eGFR AMER. (test code 137 ML/MIN/1.73 = 08824) eGFR NON- AMER. (test 118 ML/MIN/1.73 code = 18546) CALC BUN/CREAT (test code = 19 RATIO 2235) SODIUM (test code = 2231) 138 MEQ/L POTASSIUM (test code = 2228) 4.2 MEQ/L CHLORIDE (test code = 2215) 101 MEQ/L CARBON DIOXIDE (test code = 25 MEQ/L 2205) CALCIUM (test code = 2209) 10.2 MG/DL PROTEIN, TOTAL (test code = 6.8 G/DL 2228) ALBUMIN (test code = 2201) 4.3 G/DL CALC GLOBULIN (test code = 2.5 G/DL 2240) CALC A/G RATIO (test code = 1.7 RATIO 2234) BILIRUBIN, TOTAL (test code = <0.2 MG/DL 2206) ALKALINE PHOSPHATASE (test 77 U/L code = 2204) AST (test code = 2218) 26 U/L ALT (test code = 2219) <5 U/L [id number] 00:00:00 Test Item Value Reference Range Interpretation Comments TSH, THIRD GENERATION (test code 1.060 UIU/ML = 2821) [id number] 00:00:00 Test Item Value Reference Range Interpretation Comments TSH, THIRD GENERATION (test code 1.060 UIU/ML = 2821) [id number] 00:00:00 Test Item Value Reference Range Interpretation Comments TSH, THIRD GENERATION (test code 1.060 UIU/ML = 2821) MICROALBUMIN/CREATININE, RANDOM AND [id number] 00:00:00 Test Item Value Reference Range Interpretation Comments CREATININE, URINE, CONC. (test 83.5 MG/DL code = 2072) ALBUMIN, URINE, RANDOM (test code 3.0 MG/DL = 18972) CALC ALBUMIN/CREAT, RND (test code 36 MG/G = 92759) MICROALBUMIN/CREATININE, RANDOM AND [id number] 00:00:00 Test Item Value Reference Range Interpretation Comments CREATININE, URINE, CONC. (test 83.5 MG/DL code = 2072) ALBUMIN, URINE, RANDOM (test code 3.0 MG/DL = 77156) CALC ALBUMIN/CREAT, RND (test code 36 MG/G = 67183) VITAMIN D, 25 [id number] 00:00:00 Test Item Value Reference Range Interpretation Comments VITAMIN D, 25 OH (test code = 4958) 12 NG/ML VITAMIN D, 25 [id number] 00:00:00 Test Item Value Reference Range Interpretation Comments VITAMIN D, 25 OH (test code = 4958) 12 NG/ML CBC W/AUTO [id number] 00:00:00 Test Item Value Reference Range Interpretation Comments WBC (test code = 1001) 8.7 K/UL RBC (test code = 1002) 4.82 M/UL HEMOGLOBIN (test code = 1003) 14.7 G/DL HEMATOCRIT (test code = 1004) 42.3 % MCV (test code = 1005) 87.8 fL MCH (test code = 1006) 30.5 PG MCHC (test code = 1007) 34.8 G/DL RDW (test code = 1038) 12.5 % NEUTROPHILS (test code = 1008) 68.1 % LYMPHOCYTES (test code = 1010) 24.9 % MONOCYTES (test code = 1011) 5.3 % EOSINOPHILS (test code = 1012) 1.5 % BASOPHILS (test code = 1013) 0.2 % PLATELET COUNT (test code = 1015) 270 K/UL CBC W/AUTO [id number] 00:00:00 Test Item Value Reference Range Interpretation Comments WBC (test code = 1001) 8.7 K/UL RBC (test code = 1002) 4.82 M/UL HEMOGLOBIN (test code = 1003) 14.7 G/DL HEMATOCRIT (test code = 1004) 42.3 % MCV (test code = 1005) 87.8 fL MCH (test code = 1006) 30.5 PG MCHC (test code = 1007) 34.8 G/DL RDW (test code = 1038) 12.5 % NEUTROPHILS (test code = 1008) 68.1 % LYMPHOCYTES (test code = 1010) 24.9 % MONOCYTES (test code = 1011) 5.3 % EOSINOPHILS (test code = 1012) 1.5 % BASOPHILS (test code = 1013) 0.2 % PLATELET COUNT (test code = 1015) 270 K/UL CBC W/AUTO [id number] 00:00:00 Test Item Value Reference Range Interpretation Comments WBC (test code = 1001) 8.7 K/UL RBC (test code = 1002) 4.82 M/UL HEMOGLOBIN (test code = 1003) 14.7 G/DL HEMATOCRIT (test code = 1004) 42.3 % MCV (test code = 1005) 87.8 fL MCH (test code = 1006) 30.5 PG MCHC (test code = 1007) 34.8 G/DL RDW (test code = 1038) 12.5 % NEUTROPHILS (test code = 1008) 68.1 % LYMPHOCYTES (test code = 1010) 24.9 % MONOCYTES (test code = 1011) 5.3 % EOSINOPHILS (test code = 1012) 1.5 % BASOPHILS (test code = 1013) 0.2 % PLATELET COUNT (test code = 1015) 270 K/UL HEMOGLOBIN [id number] 00:00:00 Test Item Value Reference Range Interpretation Comments HEMOGLOBIN A1c (test code = 31639) 8.8 % HEMOGLOBIN [id number] 00:00:00 Test Item Value Reference Range Interpretation Comments HEMOGLOBIN A1c (test code = 07128) 8.8 % HEMOGLOBIN [id number] 00:00:00 Test Item Value Reference Range Interpretation Comments HEMOGLOBIN A1c (test code = 03447) 8.8 % COMPREHENSIVE METABOLIC [id number] 00:00:00 Test Item Value Reference Range Interpretation Comments GLUCOSE (test code = 2217) 236 MG/DL BUN (test code = 2208) 9 MG/DL CREATININE (test code = 2214) 0.47 MG/DL eGFR AMER. (test code 137 ML/MIN/1.73 = 53125) eGFR NON- AMER. (test 118 ML/MIN/1.73 code = 84950) CALC BUN/CREAT (test code = 19 RATIO 2235) SODIUM (test code = 2231) 138 MEQ/L POTASSIUM (test code = 2228) 4.2 MEQ/L CHLORIDE (test code = 2215) 101 MEQ/L CARBON DIOXIDE (test code = 25 MEQ/L 2205) CALCIUM (test code = 2209) 10.2 MG/DL PROTEIN, TOTAL (test code = 6.8 G/DL 2228) ALBUMIN (test code = 2201) 4.3 G/DL CALC GLOBULIN (test code = 2.5 G/DL 2239) CALC A/G RATIO (test code = 1.7 RATIO 2234) BILIRUBIN, TOTAL (test code = <0.2 MG/DL 2206) ALKALINE PHOSPHATASE (test 77 U/L code = 2204) AST (test code = 2218) 26 U/L ALT (test code = 2219) <5 U/L COMPREHENSIVE METABOLIC [id number] 00:00:00 Test Item Value Reference Range Interpretation Comments GLUCOSE (test code = 2217) 236 MG/DL BUN (test code = 2208) 9 MG/DL CREATININE (test code = 2214) 0.47 MG/DL eGFR AMER. (test code 137 ML/MIN/1.73 = 71751) eGFR NON- AMER. (test 118 ML/MIN/1.73 code = 40859) CALC BUN/CREAT (test code = 19 RATIO 2235) SODIUM (test code = 2231) 138 MEQ/L POTASSIUM (test code = 2228) 4.2 MEQ/L CHLORIDE (test code = 2215) 101 MEQ/L CARBON DIOXIDE (test code = 25 MEQ/L 220) CALCIUM (test code = 2209) 10.2 MG/DL PROTEIN, TOTAL (test code = 6.8 G/DL 2229) ALBUMIN (test code = 2201) 4.3 G/DL CALC GLOBULIN (test code = 2.5 G/DL 2240) CALC A/G RATIO (test code = 1.7 RATIO 2234) BILIRUBIN, TOTAL (test code = <0.2 MG/DL 2207) ALKALINE PHOSPHATASE (test 77 U/L code = 2204) AST (test code = 2218) 26 U/L ALT (test code = 2219) <5 U/L [id number] 00:00:00 Test Item Value Reference Range Interpretation Comments TSH, THIRD GENERATION (test code 1.060 UIU/ML = 2821) [id number] 00:00:00 Test Item Value Reference Range Interpretation Comments TSH, THIRD GENERATION (test code 1.060 UIU/ML = 2821) [id number] 00:00:00 Test Item Value Reference Range Interpretation Comments TSH, THIRD GENERATION (test code 1.060 UIU/ML = 2821) MICROALBUMIN/CREATININE, RANDOM AND [id number] 00:00:00 Test Item Value Reference Range Interpretation Comments CREATININE, URINE, CONC. (test 83.5 MG/DL code = 2072) ALBUMIN, URINE, RANDOM (test code 3.0 MG/DL = 01811) CALC ALBUMIN/CREAT, RND (test code 36 MG/G = 72085) MICROALBUMIN/CREATININE, RANDOM AND [id number] 00:00:00 Test Item Value Reference Range Interpretation Comments CREATININE, URINE, CONC. (test 83.5 MG/DL code = 2072) ALBUMIN, URINE, RANDOM (test code 3.0 MG/DL = 02891) CALC ALBUMIN/CREAT, RND (test code 36 MG/G = 07552) VITAMIN D, 25 [id number] 00:00:00 Test Item Value Reference Range Interpretation Comments VITAMIN D, 25 OH (test code = 4958) 12 NG/ML VITAMIN D, 25 [id number] 00:00:00 Test Item Value Reference Range Interpretation Comments VITAMIN D, 25 OH (test code = 4958) 12 NG/ML SARS-CoV-2 (COVID-19) by RT-PCR (HIGH RISK)2020-03-24 00:00:00 Test Item Value Reference Range Interpretation Comments SARS-CoV-2 INTERPRETATION (test NEGATIVE code = 46491) SOURCE (test code = 56710) NOT SPECIFIED SARS-CoV-2 (COVID-19) by RT-PCR (HIGH RISK)2020-03-24 00:00:00 Test Item Value Reference Range Interpretation Comments SARS-CoV-2 INTERPRETATION (test NEGATIVE code = 63301) SOURCE (test code = 07792) NOT SPECIFIED SARS-CoV-2 (COVID-19) by RT-PCR (HIGH RISK)2020-03-24 00:00:00 Test Item Value Reference Range Interpretation Comments SARS-CoV-2 INTERPRETATION (test NEGATIVE code = 03096) SOURCE (test code = 91193) NOT SPECIFIED SARS-CoV-2 (COVID-19) by RT-PCR (HIGH RISK)2020-03-24 00:00:00 Test Item Value Reference Range Interpretation Comments SARS-CoV-2 INTERPRETATION (test NEGATIVE code = 13924) SOURCE (test code = 76983) NOT SPECIFIED SARS-CoV-2 (COVID-19) by RT-PCR (HIGH RISK)2020-03-24 00:00:00 Test Item Value Reference Range Interpretation Comments SARS-CoV-2 INTERPRETATION (test NEGATIVE code = 33541) SOURCE (test code = 51493) NOT SPECIFIED LIPID [id number] 00:00:00 Test Item Value Reference Range Interpretation Comments CHOLESTEROL (test code = 2210) 235 MG/DL TRIGLYCERIDES (test code = 2232) 420 MG/DL HDL CHOLESTEROL (test code = 42 MG/DL 2220) CALC LDL CHOL (test code = 2237) (NOTE) MG/DL RISK RATIO LDL/HDL (test code = (NOTE) RATIO 2238) LIPID [id number] 00:00:00 Test Item Value Reference Range Interpretation Comments CHOLESTEROL (test code = 2210) 235 MG/DL TRIGLYCERIDES (test code = 2232) 420 MG/DL HDL CHOLESTEROL (test code = 42 MG/DL 2220) CALC LDL CHOL (test code = 2237) (NOTE) MG/DL RISK RATIO LDL/HDL (test code = (NOTE) RATIO 2238) LIPID [id number] 00:00:00 Test Item Value Reference Range Interpretation Comments CHOLESTEROL (test code = 2210) 235 MG/DL TRIGLYCERIDES (test code = 2232) 420 MG/DL HDL CHOLESTEROL (test code = 42 MG/DL 2220) CALC LDL CHOL (test code = 2237) (NOTE) MG/DL RISK RATIO LDL/HDL (test code = (NOTE) RATIO 2238) LIPID [id number] 00:00:00 Test Item Value Reference Range Interpretation Comments CHOLESTEROL (test code = 2210) 235 MG/DL TRIGLYCERIDES (test code = 2232) 420 MG/DL HDL CHOLESTEROL (test code = 42 MG/DL 2220) CALC LDL CHOL (test code = 2237) (NOTE) MG/DL RISK RATIO LDL/HDL (test code = (NOTE) RATIO 2238) LIPID [id number] 00:00:00 Test Item Value Reference Range Interpretation Comments CHOLESTEROL (test code = 2210) 235 MG/DL TRIGLYCERIDES (test code = 2232) 420 MG/DL HDL CHOLESTEROL (test code = 42 MG/DL 2220) CALC LDL CHOL (test code = 2237) (NOTE) MG/DL RISK RATIO LDL/HDL (test code = (NOTE) RATIO 2238) LIPID [id number] 00:00:00 Test Item Value Reference Range Interpretation Comments CHOLESTEROL (test code = 2210) 500 MG/DL TRIGLYCERIDES (test code = 2232) 2793 MG/DL HDL CHOLESTEROL (test code = 25 MG/DL 2220) CALC LDL CHOL (test code = 2237) (NOTE) MG/DL RISK RATIO LDL/HDL (test code = (NOTE) RATIO 2238) COMPREHENSIVE METABOLIC [id number] 00:00:00 Test Item Value Reference Range Interpretation Comments GLUCOSE (test code = 2217) 287 MG/DL BUN (test code = 2208) 7 MG/DL CREATININE (test code = 2214) 0.57 MG/DL eGFR AMER. (test code 129 ML/MIN/1.73 = 13388) eGFR NON- AMER. (test 111 ML/MIN/1.73 code = 92334) CALC BUN/CREAT (test code = 12 RATIO 2235) SODIUM (test code = 2231) 133 MEQ/L POTASSIUM (test code = 2228) 4.5 MEQ/L CHLORIDE (test code = 2215) 96 MEQ/L CARBON DIOXIDE (test code = 24 MEQ/L 2205) CALCIUM (test code = 2209) 10.0 MG/DL PROTEIN, TOTAL (test code = 7.5 G/DL 2228) ALBUMIN (test code = 2201) 4.6 G/DL CALC GLOBULIN (test code = 2.9 G/DL 2239) CALC A/G RATIO (test code = 1.6 RATIO 2234) BILIRUBIN, TOTAL (test code = 0.4 MG/DL 2206) ALKALINE PHOSPHATASE (test 103 U/L code = 2204) AST (test code = 2218) 30 U/L ALT (test code = 2219) <5 U/L HEMOGLOBIN [id number] 00:00:00 Test Item Value Reference Range Interpretation Comments HEMOGLOBIN A1c (test code = 35841) 9.2 % HEMOGLOBIN [id number] 00:00:00 Test Item Value Reference Range Interpretation Comments HEMOGLOBIN A1c (test code = 36042) 9.2 % HEMOGLOBIN [id number] 00:00:00 Test Item Value Reference Range Interpretation Comments HEMOGLOBIN A1c (test code = 85002) 9.2 % LIPID [id number] 00:00:00 Test Item Value Reference Range Interpretation Comments CHOLESTEROL (test code = 2210) 500 MG/DL TRIGLYCERIDES (test code = 2232) 2793 MG/DL HDL CHOLESTEROL (test code = 25 MG/DL 2220) CALC LDL CHOL (test code = 2237) (NOTE) MG/DL RISK RATIO LDL/HDL (test code = (NOTE) RATIO 2238) LIPID [id number] 00:00:00 Test Item Value Reference Range Interpretation Comments CHOLESTEROL (test code = 2210) 500 MG/DL TRIGLYCERIDES (test code = 2232) 2793 MG/DL HDL CHOLESTEROL (test code = 25 MG/DL 2220) CALC LDL CHOL (test code = 2237) (NOTE) MG/DL RISK RATIO LDL/HDL (test code = (NOTE) RATIO 2238) COMPREHENSIVE METABOLIC [id number] 00:00:00 Test Item Value Reference Range Interpretation Comments GLUCOSE (test code = 2217) 287 MG/DL BUN (test code = 2208) 7 MG/DL CREATININE (test code = 2214) 0.57 MG/DL eGFR AMER. (test code 129 ML/MIN/1.73 = 15335) eGFR NON- AMER. (test 111 ML/MIN/1.73 code = 44859) CALC BUN/CREAT (test code = 12 RATIO 2235) SODIUM (test code = 2231) 133 MEQ/L POTASSIUM (test code = 2228) 4.5 MEQ/L CHLORIDE (test code = 2215) 96 MEQ/L CARBON DIOXIDE (test code = 24 MEQ/L 2205) CALCIUM (test code = 2209) 10.0 MG/DL PROTEIN, TOTAL (test code = 7.5 G/DL 2228) ALBUMIN (test code = 2201) 4.6 G/DL CALC GLOBULIN (test code = 2.9 G/DL 2240) CALC A/G RATIO (test code = 1.6 RATIO 2234) BILIRUBIN, TOTAL (test code = 0.4 MG/DL 2206) ALKALINE PHOSPHATASE (test 103 U/L code = 2204) AST (test code = 2218) 30 U/L ALT (test code = 2219) <5 U/L COMPREHENSIVE METABOLIC [id number] 00:00:00 Test Item Value Reference Range Interpretation Comments GLUCOSE (test code = 2217) 287 MG/DL BUN (test code = 2208) 7 MG/DL CREATININE (test code = 2214) 0.57 MG/DL eGFR AMER. (test code 129 ML/MIN/1.73 = 49591) eGFR NON- AMER. (test 111 ML/MIN/1.73 code = 22999) CALC BUN/CREAT (test code = 12 RATIO 2235) SODIUM (test code = 2231) 133 MEQ/L POTASSIUM (test code = 2228) 4.5 MEQ/L CHLORIDE (test code = 2215) 96 MEQ/L CARBON DIOXIDE (test code = 24 MEQ/L 2205) CALCIUM (test code = 2209) 10.0 MG/DL PROTEIN, TOTAL (test code = 7.5 G/DL 2228) ALBUMIN (test code = 2201) 4.6 G/DL CALC GLOBULIN (test code = 2.9 G/DL 2240) CALC A/G RATIO (test code = 1.6 RATIO 2234) BILIRUBIN, TOTAL (test code = 0.4 MG/DL 2206) ALKALINE PHOSPHATASE (test 103 U/L code = 2204) AST (test code = 2218) 30 U/L ALT (test code = 2219) <5 U/L HEMOGLOBIN [id number] 00:00:00 Test Item Value Reference Range Interpretation Comments HEMOGLOBIN A1c (test code = 27014) 9.2 % HEMOGLOBIN [id number] 00:00:00 Test Item Value Reference Range Interpretation Comments HEMOGLOBIN A1c (test code = 42176) 9.2 % HEMOGLOBIN [id number] 00:00:00 Test Item Value Reference Range Interpretation Comments HEMOGLOBIN A1c (test code = 85575) 9.2 % LIPID [id number] 00:00:00 Test Item Value Reference Range Interpretation Comments CHOLESTEROL (test code = 2210) 500 MG/DL TRIGLYCERIDES (test code = 2232) 2793 MG/DL HDL CHOLESTEROL (test code = 25 MG/DL 2220) CALC LDL CHOL (test code = 2237) (NOTE) MG/DL RISK RATIO LDL/HDL (test code = (NOTE) RATIO 2238) LIPID [id number] 00:00:00 Test Item Value Reference Range Interpretation Comments CHOLESTEROL (test code = 2210) 500 MG/DL TRIGLYCERIDES (test code = 2232) 2793 MG/DL HDL CHOLESTEROL (test code = 25 MG/DL 2220) CALC LDL CHOL (test code = 2237) (NOTE) MG/DL RISK RATIO LDL/HDL (test code = (NOTE) RATIO 2238) COMPREHENSIVE METABOLIC [id number] 00:00:00 Test Item Value Reference Range Interpretation Comments GLUCOSE (test code = 2217) 287 MG/DL BUN (test code = 2208) 7 MG/DL CREATININE (test code = 2214) 0.57 MG/DL eGFR AMER. (test code 129 ML/MIN/1.73 = 33594) eGFR NON- AMER. (test 111 ML/MIN/1.73 code = 86977) CALC BUN/CREAT (test code = 12 RATIO 2235) SODIUM (test code = 2231) 133 MEQ/L POTASSIUM (test code = 2228) 4.5 MEQ/L CHLORIDE (test code = 2215) 96 MEQ/L CARBON DIOXIDE (test code = 24 MEQ/L 2205) CALCIUM (test code = 2209) 10.0 MG/DL PROTEIN, TOTAL (test code = 7.5 G/DL 2228) ALBUMIN (test code = 2201) 4.6 G/DL CALC GLOBULIN (test code = 2.9 G/DL 2239) CALC A/G RATIO (test code = 1.6 RATIO 2234) BILIRUBIN, TOTAL (test code = 0.4 MG/DL 2206) ALKALINE PHOSPHATASE (test 103 U/L code = 2204) AST (test code = 2218) 30 U/L ALT (test code = 2219) <5 U/L COMPREHENSIVE METABOLIC [id number] 00:00:00 Test Item Value Reference Range Interpretation Comments GLUCOSE (test code = 2217) 287 MG/DL BUN (test code = 2208) 7 MG/DL CREATININE (test code = 2214) 0.57 MG/DL eGFR AMER. (test code 129 ML/MIN/1.73 = 15154) eGFR NON- AMER. (test 111 ML/MIN/1.73 code = 09342) CALC BUN/CREAT (test code = 12 RATIO 2235) SODIUM (test code = 2231) 133 MEQ/L POTASSIUM (test code = 2228) 4.5 MEQ/L CHLORIDE (test code = 2215) 96 MEQ/L CARBON DIOXIDE (test code = 24 MEQ/L 2205) CALCIUM (test code = 2209) 10.0 MG/DL PROTEIN, TOTAL (test code = 7.5 G/DL 2228) ALBUMIN (test code = 2201) 4.6 G/DL CALC GLOBULIN (test code = 2.9 G/DL 2240) CALC A/G RATIO (test code = 1.6 RATIO 4) BILIRUBIN, TOTAL (test code = 0.4 MG/DL 2206) ALKALINE PHOSPHATASE (test 103 U/L code = 2204) AST (test code = 2218) 30 U/L ALT (test code = 2219) <5 U/L HEMOGLOBIN [id number] 00:00:00 Test Item Value Reference Range Interpretation Comments HEMOGLOBIN A1c (test code = 71056) 9.2 % HEMOGLOBIN [id number] 00:00:00 Test Item Value Reference Range Interpretation Comments HEMOGLOBIN A1c (test code = 92804) 9.2 % SARS-CoV-2 (COVID-19) by RT-PCR (HIGH RISK)2019-12-14 00:00:00 Test Item Value Reference Range Interpretation Comments SARS-CoV-2 INTERPRETATION Positive (test code = 93849) SOURCE (test code = 15000) NASOPHARYNGEAL_SWAB _IN_VTM__UTM SARS-CoV-2 (COVID-19) by RT-PCR (HIGH RISK)2019-12-14 00:00:00 Test Item Value Reference Range Interpretation Comments SARS-CoV-2 INTERPRETATION Positive (test code = 11644) SOURCE (test code = 13077) NASOPHARYNGEAL_SWAB _IN_VTM__UTM SARS-CoV-2 (COVID-19) by RT-PCR (HIGH RISK)2019-12-14 00:00:00 Test Item Value Reference Range Interpretation Comments SARS-CoV-2 INTERPRETATION Positive (test code = 41261) SOURCE (test code = 07536) NASOPHARYNGEAL_SWAB _IN_VTM__UTM SARS-CoV-2 (COVID-19) by RT-PCR (HIGH RISK)2019-12-01 00:00:00 Test Item Value Reference Range Interpretation Comments SARS-CoV-2 INTERPRETATION Positive (test code = 86065) SOURCE (test code = 51021) Nasal_Swab_in_VTM__ UTM SARS-CoV-2 (COVID-19) by RT-PCR (HIGH RISK)2019-12-01 00:00:00 Test Item Value Reference Range Interpretation Comments SARS-CoV-2 INTERPRETATION Positive (test code = 34197) SOURCE (test code = 54968) Nasal_Swab_in_VTM__ UTM SARS-CoV-2 (COVID-19) by RT-PCR (HIGH RISK)2019-12-01 00:00:00 Test Item Value Reference Range Interpretation Comments SARS-CoV-2 INTERPRETATION Positive (test code = 41781) SOURCE (test code = 56021) Nasal_Swab_in_VTM__ UTM SARS-CoV-2 (COVID-19) by RT-PCR (HIGH RISK)2019-09-01 00:00:00 Test Item Value Reference Range Interpretation Comments SARS-CoV-2 INTERPRETATION (test NEGATIVE code = 37220) SOURCE (test code = 40069) NOT SPECIFIED SARS-CoV-2 (COVID-19) by RT-PCR (HIGH RISK)2019-09-01 00:00:00 Test Item Value Reference Range Interpretation Comments SARS-CoV-2 INTERPRETATION (test NEGATIVE code = 93293) SOURCE (test code = 64911) NOT SPECIFIED SARS-CoV-2 (COVID-19) by RT-PCR (HIGH RISK)2019-09-01 00:00:00 Test Item Value Reference Range Interpretation Comments SARS-CoV-2 INTERPRETATION (test NEGATIVE code = 41303) SOURCE (test code = 16620) NOT SPECIFIED SARS-CoV-2 (COVID-19) by RT-PCR (HIGH RISK)2019-09-01 00:00:00 Test Item Value Reference Range Interpretation Comments SARS-CoV-2 INTERPRETATION (test NEGATIVE code = 46541) SOURCE (test code = 88255) NOT SPECIFIED SARS-CoV-2 (COVID-19) by RT-PCR (HIGH RISK)2019-09-01 00:00:00 Test Item Value Reference Range Interpretation Comments SARS-CoV-2 INTERPRETATION (test NEGATIVE code = 25586) SOURCE (test code = 19834) NOT SPECIFIED HEMOGLOBIN [id number] 00:00:00 Test Item Value Reference Range Interpretation Comments HEMOGLOBIN A1c (test code = 79505) 8.1 % LIPID [id number] 00:00:00 Test Item Value Reference Range Interpretation Comments CHOLESTEROL (test code = 2210) 336 MG/DL TRIGLYCERIDES (test code = 2232) 1678 MG/DL HDL CHOLESTEROL (test code = 28 MG/DL 2219) CALC LDL CHOL (test code = 2237) (NOTE) MG/DL RISK RATIO LDL/HDL (test code = (NOTE) RATIO 2238) COMPREHENSIVE METABOLIC [id number] 00:00:00 Test Item Value Reference Range Interpretation Comments GLUCOSE (test code = 2217) 175 MG/DL BUN (test code = 2208) 8 MG/DL CREATININE (test code = 2214) 0.53 MG/DL eGFR AMER. (test code 133 ML/MIN/1.73 = 25569) eGFR NON- AMER. (test 115 ML/MIN/1.73 code = 68546) CALC BUN/CREAT (test code = 15 RATIO 2235) SODIUM (test code = 2231) 136 MEQ/L POTASSIUM (test code = 2228) 4.2 MEQ/L CHLORIDE (test code = 2215) 99 MEQ/L CARBON DIOXIDE (test code = 24 MEQ/L 220) CALCIUM (test code = 2209) 9.5 MG/DL PROTEIN, TOTAL (test code = 6.7 G/DL 2228) ALBUMIN (test code = 2201) 4.2 G/DL CALC GLOBULIN (test code = 2.5 G/DL 2239) CALC A/G RATIO (test code = 1.7 RATIO 2234) BILIRUBIN, TOTAL (test code = 0.3 MG/DL 2206) ALKALINE PHOSPHATASE (test 87 U/L code = 2204) AST (test code = 2218) 21 U/L ALT (test code = 2219) 25 U/L HEMOGLOBIN [id number] 00:00:00 Test Item Value Reference Range Interpretation Comments HEMOGLOBIN A1c (test code = 05354) 8.1 % HEMOGLOBIN [id number] 00:00:00 Test Item Value Reference Range Interpretation Comments HEMOGLOBIN A1c (test code = 52533) 8.1 % HEMOGLOBIN [id number] 00:00:00 Test Item Value Reference Range Interpretation Comments HEMOGLOBIN A1c (test code = 21964) 8.1 % LIPID [id number] 00:00:00 Test Item Value Reference Range Interpretation Comments CHOLESTEROL (test code = 2210) 336 MG/DL TRIGLYCERIDES (test code = 2232) 1678 MG/DL HDL CHOLESTEROL (test code = 28 MG/DL 2220) CALC LDL CHOL (test code = 2237) (NOTE) MG/DL RISK RATIO LDL/HDL (test code = (NOTE) RATIO 2238) LIPID [id number] 00:00:00 Test Item Value Reference Range Interpretation Comments CHOLESTEROL (test code = 2210) 336 MG/DL TRIGLYCERIDES (test code = 2232) 1678 MG/DL HDL CHOLESTEROL (test code = 28 MG/DL 2220) CALC LDL CHOL (test code = 2237) (NOTE) MG/DL RISK RATIO LDL/HDL (test code = (NOTE) RATIO 2238) COMPREHENSIVE METABOLIC [id number] 00:00:00 Test Item Value Reference Range Interpretation Comments GLUCOSE (test code = 2217) 175 MG/DL BUN (test code = 2208) 8 MG/DL CREATININE (test code = 2214) 0.53 MG/DL eGFR AMER. (test code 133 ML/MIN/1.73 = 35056) eGFR NON- AMER. (test 115 ML/MIN/1.73 code = 27316) CALC BUN/CREAT (test code = 15 RATIO 2235) SODIUM (test code = 2231) 136 MEQ/L POTASSIUM (test code = 2228) 4.2 MEQ/L CHLORIDE (test code = 2215) 99 MEQ/L CARBON DIOXIDE (test code = 24 MEQ/L 2206) CALCIUM (test code = 2209) 9.5 MG/DL PROTEIN, TOTAL (test code = 6.7 G/DL 2229) ALBUMIN (test code = 2201) 4.2 G/DL CALC GLOBULIN (test code = 2.5 G/DL 2240) CALC A/G RATIO (test code = 1.7 RATIO 2234) BILIRUBIN, TOTAL (test code = 0.3 MG/DL 2207) ALKALINE PHOSPHATASE (test 87 U/L code = 2204) AST (test code = 2218) 21 U/L ALT (test code = 2219) 25 U/L COMPREHENSIVE METABOLIC [id number] 00:00:00 Test Item Value Reference Range Interpretation Comments GLUCOSE (test code = 2217) 175 MG/DL BUN (test code = 2208) 8 MG/DL CREATININE (test code = 2214) 0.53 MG/DL eGFR AMER. (test code 133 ML/MIN/1.73 = 59402) eGFR NON- AMER. (test 115 ML/MIN/1.73 code = 93975) CALC BUN/CREAT (test code = 15 RATIO 2235) SODIUM (test code = 2231) 136 MEQ/L POTASSIUM (test code = 2228) 4.2 MEQ/L CHLORIDE (test code = 2215) 99 MEQ/L CARBON DIOXIDE (test code = 24 MEQ/L 2205) CALCIUM (test code = 2209) 9.5 MG/DL PROTEIN, TOTAL (test code = 6.7 G/DL 222) ALBUMIN (test code = 2201) 4.2 G/DL CALC GLOBULIN (test code = 2.5 G/DL 2240) CALC A/G RATIO (test code = 1.7 RATIO 2234) BILIRUBIN, TOTAL (test code = 0.3 MG/DL 2207) ALKALINE PHOSPHATASE (test 87 U/L code = 2204) AST (test code = 2218) 21 U/L ALT (test code = 2219) 25 U/L HEMOGLOBIN [id number] 00:00:00 Test Item Value Reference Range Interpretation Comments HEMOGLOBIN A1c (test code = 13718) 8.1 % HEMOGLOBIN [id number] 00:00:00 Test Item Value Reference Range Interpretation Comments HEMOGLOBIN A1c (test code = 89232) 8.1 % HEMOGLOBIN [id number] 00:00:00 Test Item Value Reference Range Interpretation Comments HEMOGLOBIN A1c (test code = 07034) 8.1 % LIPID [id number] 00:00:00 Test Item Value Reference Range Interpretation Comments CHOLESTEROL (test code = 2210) 336 MG/DL TRIGLYCERIDES (test code = 2232) 1678 MG/DL HDL CHOLESTEROL (test code = 28 MG/DL 2220) CALC LDL CHOL (test code = 2237) (NOTE) MG/DL RISK RATIO LDL/HDL (test code = (NOTE) RATIO 2238) LIPID [id number] 00:00:00 Test Item Value Reference Range Interpretation Comments CHOLESTEROL (test code = 2210) 336 MG/DL TRIGLYCERIDES (test code = 2232) 1678 MG/DL HDL CHOLESTEROL (test code = 28 MG/DL 2220) CALC LDL CHOL (test code = 2237) (NOTE) MG/DL RISK RATIO LDL/HDL (test code = (NOTE) RATIO 2238) COMPREHENSIVE METABOLIC [id number] 00:00:00 Test Item Value Reference Range Interpretation Comments GLUCOSE (test code = 2217) 175 MG/DL BUN (test code = 2208) 8 MG/DL CREATININE (test code = 2214) 0.53 MG/DL eGFR AMER. (test code 133 ML/MIN/1.73 = 74616) eGFR NON- AMER. (test 115 ML/MIN/1.73 code = 37068) CALC BUN/CREAT (test code = 15 RATIO 2235) SODIUM (test code = 2231) 136 MEQ/L POTASSIUM (test code = 2228) 4.2 MEQ/L CHLORIDE (test code = 2215) 99 MEQ/L CARBON DIOXIDE (test code = 24 MEQ/L 2205) CALCIUM (test code = 2209) 9.5 MG/DL PROTEIN, TOTAL (test code = 6.7 G/DL 2228) ALBUMIN (test code = 2201) 4.2 G/DL CALC GLOBULIN (test code = 2.5 G/DL 2240) CALC A/G RATIO (test code = 1.7 RATIO 2234) BILIRUBIN, TOTAL (test code = 0.3 MG/DL 2206) ALKALINE PHOSPHATASE (test 87 U/L code = 2204) AST (test code = 2218) 21 U/L ALT (test code = 2219) 25 U/L COMPREHENSIVE METABOLIC [id number] 00:00:00 Test Item Value Reference Range Interpretation Comments GLUCOSE (test code = 2217) 175 MG/DL BUN (test code = 2208) 8 MG/DL CREATININE (test code = 2214) 0.53 MG/DL eGFR AMER. (test code 133 ML/MIN/1.73 = 11065) eGFR NON- AMER. (test 115 ML/MIN/1.73 code = 26657) CALC BUN/CREAT (test code = 15 RATIO 2235) SODIUM (test code = 2231) 136 MEQ/L POTASSIUM (test code = 2228) 4.2 MEQ/L CHLORIDE (test code = 2215) 99 MEQ/L CARBON DIOXIDE (test code = 24 MEQ/L 2205) CALCIUM (test code = 2209) 9.5 MG/DL PROTEIN, TOTAL (test code = 6.7 G/DL 2228) ALBUMIN (test code = 2201) 4.2 G/DL CALC GLOBULIN (test code = 2.5 G/DL 2239) CALC A/G RATIO (test code = 1.7 RATIO 223) BILIRUBIN, TOTAL (test code = 0.3 MG/DL 2206) ALKALINE PHOSPHATASE (test 87 U/L code = 2204) AST (test code = 2218) 21 U/L ALT (test code = 2219) 25 U/L HEMOGLOBIN [id number] 00:00:00 Test Item Value Reference Range Interpretation Comments HEMOGLOBIN A1c (test code = 16749) 8.1 % COMPREHENSIVE METABOLIC [id number] 00:00:00 Test Item Value Reference Range Interpretation Comments GLUCOSE (test code = 2217) 286 MG/DL BUN (test code = 2208) 9 MG/DL CREATININE (test code = 2214) 0.56 MG/DL eGFR AMER. (test code 131 ML/MIN/1.73 = 03888) eGFR NON- AMER. (test 113 ML/MIN/1.73 code = 81782) CALC BUN/CREAT (test code = 16 RATIO 2235) SODIUM (test code = 2231) 137 MEQ/L POTASSIUM (test code = 2228) 4.3 MEQ/L CHLORIDE (test code = 2215) 96 MEQ/L CARBON DIOXIDE (test code = 27 MEQ/L 2205) CALCIUM (test code = 2209) 9.1 MG/DL PROTEIN, TOTAL (test code = 6.6 G/DL 2229) ALBUMIN (test code = 2201) 4.1 G/DL CALC GLOBULIN (test code = 2.5 G/DL 2240) CALC A/G RATIO (test code = 1.6 RATIO 2234) BILIRUBIN, TOTAL (test code = 0.3 MG/DL 220) ALKALINE PHOSPHATASE (test 105 U/L code = 2204) AST (test code = 2218) 6 U/L ALT (test code = 2219) <5 U/L COMPREHENSIVE METABOLIC [id number] 00:00:00 Test Item Value Reference Range Interpretation Comments GLUCOSE (test code = 2217) 286 MG/DL BUN (test code = 2208) 9 MG/DL CREATININE (test code = 2214) 0.56 MG/DL eGFR AMER. (test code 131 ML/MIN/1.73 = 67656) eGFR NON- AMER. (test 113 ML/MIN/1.73 code = 51363) CALC BUN/CREAT (test code = 16 RATIO 2235) SODIUM (test code = 2231) 137 MEQ/L POTASSIUM (test code = 2228) 4.3 MEQ/L CHLORIDE (test code = 2215) 96 MEQ/L CARBON DIOXIDE (test code = 27 MEQ/L 2206) CALCIUM (test code = 2209) 9.1 MG/DL PROTEIN, TOTAL (test code = 6.6 G/DL 2229) ALBUMIN (test code = 2201) 4.1 G/DL CALC GLOBULIN (test code = 2.5 G/DL 2240) CALC A/G RATIO (test code = 1.6 RATIO 2234) BILIRUBIN, TOTAL (test code = 0.3 MG/DL 2207) ALKALINE PHOSPHATASE (test 105 U/L code = 2204) AST (test code = 2218) 6 U/L ALT (test code = 2219) <5 U/L COMPREHENSIVE METABOLIC [id number] 00:00:00 Test Item Value Reference Range Interpretation Comments GLUCOSE (test code = 2217) 286 MG/DL BUN (test code = 2208) 9 MG/DL CREATININE (test code = 2214) 0.56 MG/DL eGFR AMER. (test code 131 ML/MIN/1.73 = 27025) eGFR NON- AMER. (test 113 ML/MIN/1.73 code = 74152) CALC BUN/CREAT (test code = 16 RATIO 2235) SODIUM (test code = 2231) 137 MEQ/L POTASSIUM (test code = 2228) 4.3 MEQ/L CHLORIDE (test code = 2215) 96 MEQ/L CARBON DIOXIDE (test code = 27 MEQ/L 2206) CALCIUM (test code = 2209) 9.1 MG/DL PROTEIN, TOTAL (test code = 6.6 G/DL 222) ALBUMIN (test code = 2201) 4.1 G/DL CALC GLOBULIN (test code = 2.5 G/DL 2240) CALC A/G RATIO (test code = 1.6 RATIO 2234) BILIRUBIN, TOTAL (test code = 0.3 MG/DL 2206) ALKALINE PHOSPHATASE (test 105 U/L code = 2204) AST (test code = 2218) 6 U/L ALT (test code = 2219) <5 U/L COMPREHENSIVE METABOLIC [id number] 00:00:00 Test Item Value Reference Range Interpretation Comments GLUCOSE (test code = 2217) 286 MG/DL BUN (test code = 2208) 9 MG/DL CREATININE (test code = 2214) 0.56 MG/DL eGFR AMER. (test code 131 ML/MIN/1.73 = 47893) eGFR NON- AMER. (test 113 ML/MIN/1.73 code = 12845) CALC BUN/CREAT (test code = 16 RATIO 2235) SODIUM (test code = 2231) 137 MEQ/L POTASSIUM (test code = 2228) 4.3 MEQ/L CHLORIDE (test code = 2215) 96 MEQ/L CARBON DIOXIDE (test code = 27 MEQ/L 2206) CALCIUM (test code = 2209) 9.1 MG/DL PROTEIN, TOTAL (test code = 6.6 G/DL 2228) ALBUMIN (test code = 2201) 4.1 G/DL CALC GLOBULIN (test code = 2.5 G/DL 2240) CALC A/G RATIO (test code = 1.6 RATIO 2234) BILIRUBIN, TOTAL (test code = 0.3 MG/DL 2206) ALKALINE PHOSPHATASE (test 105 U/L code = 2204) AST (test code = 2218) 6 U/L ALT (test code = 2219) <5 U/L COMPREHENSIVE METABOLIC [id number] 00:00:00 Test Item Value Reference Range Interpretation Comments GLUCOSE (test code = 2217) 286 MG/DL BUN (test code = 2208) 9 MG/DL CREATININE (test code = 2214) 0.56 MG/DL eGFR AMER. (test code 131 ML/MIN/1.73 = 18309) eGFR NON- AMER. (test 113 ML/MIN/1.73 code = 93878) CALC BUN/CREAT (test code = 16 RATIO 2235) SODIUM (test code = 2231) 137 MEQ/L POTASSIUM (test code = 2228) 4.3 MEQ/L CHLORIDE (test code = 2215) 96 MEQ/L CARBON DIOXIDE (test code = 27 MEQ/L 2205) CALCIUM (test code = 2209) 9.1 MG/DL PROTEIN, TOTAL (test code = 6.6 G/DL 2228) ALBUMIN (test code = 2201) 4.1 G/DL CALC GLOBULIN (test code = 2.5 G/DL 2239) CALC A/G RATIO (test code = 1.6 RATIO 2233) BILIRUBIN, TOTAL (test code = 0.3 MG/DL 2206) ALKALINE PHOSPHATASE (test 105 U/L code = 2204) AST (test code = 2218) 6 U/L ALT (test code = 2219) <5 U/L MICROALBUMIN/CREATININE, RANDOM AND [id number] 00:00:00 Test Item Value Reference Range Interpretation Comments CREATININE, URINE, CONC. (test 112.4 MG/DL code = 2072) ALBUMIN, URINE, RANDOM (test code 9.2 MG/DL = 86418) CALC ALBUMIN/CREAT, RND (test 82 MG/G code = 81483) HEMOGLOBIN [id number] 00:00:00 Test Item Value Reference Range Interpretation Comments HEMOGLOBIN A1c (test code = 69741) 7.5 % HEMOGLOBIN [id number] 00:00:00 Test Item Value Reference Range Interpretation Comments HEMOGLOBIN A1c (test code = 65037) 7.5 % HEMOGLOBIN [id number] 00:00:00 Test Item Value Reference Range Interpretation Comments HEMOGLOBIN A1c (test code = 72872) 7.5 % MICROALBUMIN/CREATININE, RANDOM AND [id number] 00:00:00 Test Item Value Reference Range Interpretation Comments CREATININE, URINE, CONC. (test 112.4 MG/DL code = 2072) ALBUMIN, URINE, RANDOM (test code 9.2 MG/DL = 22988) CALC ALBUMIN/CREAT, RND (test 82 MG/G code = 34926) MICROALBUMIN/CREATININE, RANDOM AND [id number] 00:00:00 Test Item Value Reference Range Interpretation Comments CREATININE, URINE, CONC. (test 112.4 MG/DL code = 2072) ALBUMIN, URINE, RANDOM (test code 9.2 MG/DL = 01975) CALC ALBUMIN/CREAT, RND (test 82 MG/G code = 52448) HEMOGLOBIN [id number] 00:00:00 Test Item Value Reference Range Interpretation Comments HEMOGLOBIN A1c (test code = 82080) 7.5 % HEMOGLOBIN [id number] 00:00:00 Test Item Value Reference Range Interpretation Comments HEMOGLOBIN A1c (test code = 18806) 7.5 % HEMOGLOBIN [id number] 00:00:00 Test Item Value Reference Range Interpretation Comments HEMOGLOBIN A1c (test code = 84277) 7.5 % MICROALBUMIN/CREATININE, RANDOM AND [id number] 00:00:00 Test Item Value Reference Range Interpretation Comments CREATININE, URINE, CONC. (test 112.4 MG/DL code = 2072) ALBUMIN, URINE, RANDOM (test code 9.2 MG/DL = 34467) CALC ALBUMIN/CREAT, RND (test 82 MG/G code = 06095) MICROALBUMIN/CREATININE, RANDOM AND [id number] 00:00:00 Test Item Value Reference Range Interpretation Comments CREATININE, URINE, CONC. (test 112.4 MG/DL code = 2072) ALBUMIN, URINE, RANDOM (test code 9.2 MG/DL = 59140) CALC ALBUMIN/CREAT, RND (test 82 MG/G code = 63418) HEMOGLOBIN [id number] 00:00:00 Test Item Value Reference Range Interpretation Comments HEMOGLOBIN A1c (test code = 99553) 7.5 % HEMOGLOBIN [id number] 00:00:00 Test Item Value Reference Range Interpretation Comments HEMOGLOBIN A1c (test code = 24052) 7.5 % HEMOGLOBIN [id number] 00:00:00 Test Item Value Reference Range Interpretation Comments HEMOGLOBIN A1c (test code = 06991) 8.2 % HEMOGLOBIN [id number] 00:00:00 Test Item Value Reference Range Interpretation Comments HEMOGLOBIN A1c (test code = 07019) 8.2 % MICROALBUMIN/CREATININE, RANDOM AND [id number] 00:00:00 Test Item Value Reference Range Interpretation Comments CREATININE, URINE, CONC. (test 95.3 MG/DL code = 2072) ALBUMIN, URINE, RANDOM (test code 15.6 MG/DL = 59134) CALC ALBUMIN/CREAT, RND (test code 164 MG/G = 76233) HEMOGLOBIN [id number] 00:00:00 Test Item Value Reference Range Interpretation Comments HEMOGLOBIN A1c (test code = 45519) 8.2 % HEMOGLOBIN [id number] 00:00:00 Test Item Value Reference Range Interpretation Comments HEMOGLOBIN A1c (test code = 12485) 8.2 % HEMOGLOBIN [id number] 00:00:00 Test Item Value Reference Range Interpretation Comments HEMOGLOBIN A1c (test code = 07401) 8.2 % MICROALBUMIN/CREATININE, RANDOM AND [id number] 00:00:00 Test Item Value Reference Range Interpretation Comments CREATININE, URINE, CONC. (test 95.3 MG/DL code = 2072) ALBUMIN, URINE, RANDOM (test code 15.6 MG/DL = 34410) CALC ALBUMIN/CREAT, RND (test code 164 MG/G = 24400) MICROALBUMIN/CREATININE, RANDOM AND [id number] 00:00:00 Test Item Value Reference Range Interpretation Comments CREATININE, URINE, CONC. (test 95.3 MG/DL code = 2072) ALBUMIN, URINE, RANDOM (test code 15.6 MG/DL = 20275) CALC ALBUMIN/CREAT, RND (test code 164 MG/G = 84509) HEMOGLOBIN [id number] 00:00:00 Test Item Value Reference Range Interpretation Comments HEMOGLOBIN A1c (test code = 32015) 8.2 % HEMOGLOBIN [id number] 00:00:00 Test Item Value Reference Range Interpretation Comments HEMOGLOBIN A1c (test code = 15224) 8.2 % HEMOGLOBIN [id number] 00:00:00 Test Item Value Reference Range Interpretation Comments HEMOGLOBIN A1c (test code = 79274) 8.2 % MICROALBUMIN/CREATININE, RANDOM AND [id number] 00:00:00 Test Item Value Reference Range Interpretation Comments CREATININE, URINE, CONC. (test 95.3 MG/DL code = 2072) ALBUMIN, URINE, RANDOM (test code 15.6 MG/DL = 32862) CALC ALBUMIN/CREAT, RND (test code 164 MG/G = 06923) MICROALBUMIN/CREATININE, RANDOM AND [id number] 00:00:00 Test Item Value Reference Range Interpretation Comments CREATININE, URINE, CONC. (test 95.3 MG/DL code = 2072) ALBUMIN, URINE, RANDOM (test code 15.6 MG/DL = 37842) CALC ALBUMIN/CREAT, RND (test code 164 MG/G = 63544) LIPID [id number] 00:00:00 Test Item Value Reference Range Interpretation Comments CHOLESTEROL (test code = 2210) 242 MG/DL TRIGLYCERIDES (test code = 2232) 721 MG/DL HDL CHOLESTEROL (test code = 41 MG/DL 2220) CALC LDL CHOL (test code = 2237) NOTE MG/DL RISK RATIO LDL/HDL (test code = (NOTE) RATIO 2238) HEMOGLOBIN [id number] 00:00:00 Test Item Value Reference Range Interpretation Comments HEMOGLOBIN A1c (test code = 97203) 7.0 % HEMOGLOBIN [id number] 00:00:00 Test Item Value Reference Range Interpretation Comments HEMOGLOBIN A1c (test code = 45055) 7.0 % COMPREHENSIVE METABOLIC [id number] 00:00:00 Test Item Value Reference Range Interpretation Comments GLUCOSE (test code = 2217) 188 MG/DL BUN (test code = 2208) 8 MG/DL CREATININE (test code = 2214) 0.47 MG/DL eGFR AMER. (test code 139 ML/MIN/1.73 = 07986) eGFR NON- AMER. (test 120 ML/MIN/1.73 code = 14654) CALC BUN/CREAT (test code = 17 RATIO 2235) SODIUM (test code = 2231) 137 MEQ/L POTASSIUM (test code = 2228) 4.6 MEQ/L CHLORIDE (test code = 2215) 101 MEQ/L CARBON DIOXIDE (test code = 24 MEQ/L 2205) CALCIUM (test code = 2209) 9.4 MG/DL PROTEIN, TOTAL (test code = 6.9 G/DL 2229) ALBUMIN (test code = 2201) 4.3 G/DL CALC GLOBULIN (test code = 2.6 G/DL 2240) CALC A/G RATIO (test code = 1.7 RATIO 2234) BILIRUBIN, TOTAL (test code = 0.2 MG/DL 2207) ALKALINE PHOSPHATASE (test 79 U/L code = 2204) AST (test code = 2218) 13 U/L ALT (test code = 2219) 11 U/L COMPREHENSIVE METABOLIC [id number] 00:00:00 Test Item Value Reference Range Interpretation Comments GLUCOSE (test code = 2217) 188 MG/DL BUN (test code = 2208) 8 MG/DL CREATININE (test code = 2214) 0.47 MG/DL eGFR AMER. (test code 139 ML/MIN/1.73 = 87130) eGFR NON- AMER. (test 120 ML/MIN/1.73 code = 04890) CALC BUN/CREAT (test code = 17 RATIO 2235) SODIUM (test code = 2231) 137 MEQ/L POTASSIUM (test code = 2228) 4.6 MEQ/L CHLORIDE (test code = 2215) 101 MEQ/L CARBON DIOXIDE (test code = 24 MEQ/L 2206) CALCIUM (test code = 2209) 9.4 MG/DL PROTEIN, TOTAL (test code = 6.9 G/DL 2229) ALBUMIN (test code = 2201) 4.3 G/DL CALC GLOBULIN (test code = 2.6 G/DL 2240) CALC A/G RATIO (test code = 1.7 RATIO 2234) BILIRUBIN, TOTAL (test code = 0.2 MG/DL 2207) ALKALINE PHOSPHATASE (test 79 U/L code = 2204) AST (test code = 2218) 13 U/L ALT (test code = 2219) 11 U/L LIPID [id number] 00:00:00 Test Item Value Reference Range Interpretation Comments CHOLESTEROL (test code = 2210) 242 MG/DL TRIGLYCERIDES (test code = 2232) 721 MG/DL HDL CHOLESTEROL (test code = 41 MG/DL 2220) CALC LDL CHOL (test code = 2237) NOTE MG/DL RISK RATIO LDL/HDL (test code = (NOTE) RATIO 2238) LIPID [id number] 00:00:00 Test Item Value Reference Range Interpretation Comments CHOLESTEROL (test code = 2210) 242 MG/DL TRIGLYCERIDES (test code = 2232) 721 MG/DL HDL CHOLESTEROL (test code = 41 MG/DL 2219) CALC LDL CHOL (test code = 2237) NOTE MG/DL RISK RATIO LDL/HDL (test code = (NOTE) RATIO 2238) HEMOGLOBIN [id number] 00:00:00 Test Item Value Reference Range Interpretation Comments HEMOGLOBIN A1c (test code = 34081) 7.0 % HEMOGLOBIN [id number] 00:00:00 Test Item Value Reference Range Interpretation Comments HEMOGLOBIN A1c (test code = 14284) 7.0 % HEMOGLOBIN [id number] 00:00:00 Test Item Value Reference Range Interpretation Comments HEMOGLOBIN A1c (test code = 86648) 7.0 % COMPREHENSIVE METABOLIC [id number] 00:00:00 Test Item Value Reference Range Interpretation Comments GLUCOSE (test code = 2217) 188 MG/DL BUN (test code = 2208) 8 MG/DL CREATININE (test code = 2214) 0.47 MG/DL eGFR AMER. (test code 139 ML/MIN/1.73 = 19987) eGFR NON- AMER. (test 120 ML/MIN/1.73 code = 14524) CALC BUN/CREAT (test code = 17 RATIO 2235) SODIUM (test code = 2231) 137 MEQ/L POTASSIUM (test code = 2228) 4.6 MEQ/L CHLORIDE (test code = 2215) 101 MEQ/L CARBON DIOXIDE (test code = 24 MEQ/L 2205) CALCIUM (test code = 2209) 9.4 MG/DL PROTEIN, TOTAL (test code = 6.9 G/DL 2228) ALBUMIN (test code = 2201) 4.3 G/DL CALC GLOBULIN (test code = 2.6 G/DL 0) CALC A/G RATIO (test code = 1.7 RATIO 2233) BILIRUBIN, TOTAL (test code = 0.2 MG/DL 2206) ALKALINE PHOSPHATASE (test 79 U/L code = 2204) AST (test code = 2218) 13 U/L ALT (test code = 2219) 11 U/L COMPREHENSIVE METABOLIC [id number] 00:00:00 Test Item Value Reference Range Interpretation Comments GLUCOSE (test code = 2217) 188 MG/DL BUN (test code = 2208) 8 MG/DL CREATININE (test code = 2214) 0.47 MG/DL eGFR AMER. (test code 139 ML/MIN/1.73 = 53294) eGFR NON- AMER. (test 120 ML/MIN/1.73 code = 78951) CALC BUN/CREAT (test code = 17 RATIO 2235) SODIUM (test code = 2231) 137 MEQ/L POTASSIUM (test code = 2228) 4.6 MEQ/L CHLORIDE (test code = 2215) 101 MEQ/L CARBON DIOXIDE (test code = 24 MEQ/L 2205) CALCIUM (test code = 2209) 9.4 MG/DL PROTEIN, TOTAL (test code = 6.9 G/DL 2228) ALBUMIN (test code = 2201) 4.3 G/DL CALC GLOBULIN (test code = 2.6 G/DL 224) CALC A/G RATIO (test code = 1.7 RATIO 4) BILIRUBIN, TOTAL (test code = 0.2 MG/DL 2206) ALKALINE PHOSPHATASE (test 79 U/L code = 2204) AST (test code = 2218) 13 U/L ALT (test code = 2219) 11 U/L LIPID [id number] 00:00:00 Test Item Value Reference Range Interpretation Comments CHOLESTEROL (test code = 2210) 242 MG/DL TRIGLYCERIDES (test code = 2232) 721 MG/DL HDL CHOLESTEROL (test code = 41 MG/DL 2220) CALC LDL CHOL (test code = 2237) NOTE MG/DL RISK RATIO LDL/HDL (test code = (NOTE) RATIO 2238) LIPID [id number] 00:00:00 Test Item Value Reference Range Interpretation Comments CHOLESTEROL (test code = 2210) 242 MG/DL TRIGLYCERIDES (test code = 2232) 721 MG/DL HDL CHOLESTEROL (test code = 41 MG/DL 2220) CALC LDL CHOL (test code = 2237) NOTE MG/DL RISK RATIO LDL/HDL (test code = (NOTE) RATIO 2238) HEMOGLOBIN [id number] 00:00:00 Test Item Value Reference Range Interpretation Comments HEMOGLOBIN A1c (test code = 08173) 7.0 % HEMOGLOBIN [id number] 00:00:00 Test Item Value Reference Range Interpretation Comments HEMOGLOBIN A1c (test code = 87054) 7.0 % HEMOGLOBIN [id number] 00:00:00 Test Item Value Reference Range Interpretation Comments HEMOGLOBIN A1c (test code = 92783) 7.0 % COMPREHENSIVE METABOLIC [id number] 00:00:00 Test Item Value Reference Range Interpretation Comments GLUCOSE (test code = 2217) 188 MG/DL BUN (test code = 2208) 8 MG/DL CREATININE (test code = 2214) 0.47 MG/DL eGFR AMER. (test code 139 ML/MIN/1.73 = 62044) eGFR NON- AMER. (test 120 ML/MIN/1.73 code = 95368) CALC BUN/CREAT (test code = 17 RATIO 2235) SODIUM (test code = 2231) 137 MEQ/L POTASSIUM (test code = 2228) 4.6 MEQ/L CHLORIDE (test code = 2215) 101 MEQ/L CARBON DIOXIDE (test code = 24 MEQ/L 2205) CALCIUM (test code = 2209) 9.4 MG/DL PROTEIN, TOTAL (test code = 6.9 G/DL 2228) ALBUMIN (test code = 2201) 4.3 G/DL CALC GLOBULIN (test code = 2.6 G/DL 0) CALC A/G RATIO (test code = 1.7 RATIO 2234) BILIRUBIN, TOTAL (test code = 0.2 MG/DL 2206) ALKALINE PHOSPHATASE (test 79 U/L code = 2204) AST (test code = 2218) 13 U/L ALT (test code = 2219) 11 U/L LIPID [id number] 00:00:00 Test Item Value Reference Range Interpretation Comments CHOLESTEROL (test code = 2210) 182 MG/DL TRIGLYCERIDES (test code = 2232) 489 MG/DL HDL CHOLESTEROL (test code = 43 MG/DL 2219) CALC LDL CHOL (test code = 2237) NOTE MG/DL RISK RATIO LDL/HDL (test code = (NOTE) RATIO 2238) HEMOGLOBIN [id number] 00:00:00 Test Item Value Reference Range Interpretation Comments HEMOGLOBIN A1c (test code = 06691) 6.1 % HEMOGLOBIN [id number] 00:00:00 Test Item Value Reference Range Interpretation Comments HEMOGLOBIN A1c (test code = 87605) 6.1 % COMPREHENSIVE METABOLIC [id number] 00:00:00 Test Item Value Reference Range Interpretation Comments GLUCOSE (test code = 2217) 169 MG/DL BUN (test code = 2208) 7 MG/DL CREATININE (test code = 2214) 0.51 MG/DL eGFR AMER. (test code 136 ML/MIN/1.73 = 34844) eGFR NON- AMER. (test 118 ML/MIN/1.73 code = 49644) CALC BUN/CREAT (test code = 14 RATIO 2235) SODIUM (test code = 2231) 139 MEQ/L POTASSIUM (test code = 2228) 4.2 MEQ/L CHLORIDE (test code = 2215) 99 MEQ/L CARBON DIOXIDE (test code = 27 MEQ/L 2206) CALCIUM (test code = 2209) 9.6 MG/DL PROTEIN, TOTAL (test code = 7.5 G/DL 2228) ALBUMIN (test code = 2201) 4.7 G/DL CALC GLOBULIN (test code = 2.8 G/DL 2240) CALC A/G RATIO (test code = 1.7 RATIO 2234) BILIRUBIN, TOTAL (test code = 0.3 MG/DL 2206) ALKALINE PHOSPHATASE (test 92 U/L code = 2204) AST (test code = 2218) 16 U/L ALT (test code = 2219) 10 U/L COMPREHENSIVE METABOLIC [id number] 00:00:00 Test Item Value Reference Range Interpretation Comments GLUCOSE (test code = 2217) 169 MG/DL BUN (test code = 2208) 7 MG/DL CREATININE (test code = 2214) 0.51 MG/DL eGFR AMER. (test code 136 ML/MIN/1.73 = 90917) eGFR NON- AMER. (test 118 ML/MIN/1.73 code = 49574) CALC BUN/CREAT (test code = 14 RATIO 2235) SODIUM (test code = 2231) 139 MEQ/L POTASSIUM (test code = 2228) 4.2 MEQ/L CHLORIDE (test code = 2215) 99 MEQ/L CARBON DIOXIDE (test code = 27 MEQ/L 2206) CALCIUM (test code = 2209) 9.6 MG/DL PROTEIN, TOTAL (test code = 7.5 G/DL 2228) ALBUMIN (test code = 2201) 4.7 G/DL CALC GLOBULIN (test code = 2.8 G/DL 2239) CALC A/G RATIO (test code = 1.7 RATIO 2234) BILIRUBIN, TOTAL (test code = 0.3 MG/DL 2206) ALKALINE PHOSPHATASE (test 92 U/L code = 2204) AST (test code = 2218) 16 U/L ALT (test code = 2219) 10 U/L LIPID [id number] 00:00:00 Test Item Value Reference Range Interpretation Comments CHOLESTEROL (test code = 2210) 182 MG/DL TRIGLYCERIDES (test code = 2232) 489 MG/DL HDL CHOLESTEROL (test code = 43 MG/DL 2220) CALC LDL CHOL (test code = 2237) NOTE MG/DL RISK RATIO LDL/HDL (test code = (NOTE) RATIO 2238) LIPID [id number] 00:00:00 Test Item Value Reference Range Interpretation Comments CHOLESTEROL (test code = 2210) 182 MG/DL TRIGLYCERIDES (test code = 2232) 489 MG/DL HDL CHOLESTEROL (test code = 43 MG/DL 2220) CALC LDL CHOL (test code = 2237) NOTE MG/DL RISK RATIO LDL/HDL (test code = (NOTE) RATIO 2238) HEMOGLOBIN [id number] 00:00:00 Test Item Value Reference Range Interpretation Comments HEMOGLOBIN A1c (test code = 48192) 6.1 % HEMOGLOBIN [id number] 00:00:00 Test Item Value Reference Range Interpretation Comments HEMOGLOBIN A1c (test code = 68169) 6.1 % HEMOGLOBIN [id number] 00:00:00 Test Item Value Reference Range Interpretation Comments HEMOGLOBIN A1c (test code = 10020) 6.1 % COMPREHENSIVE METABOLIC [id number] 00:00:00 Test Item Value Reference Range Interpretation Comments GLUCOSE (test code = 2217) 169 MG/DL BUN (test code = 2208) 7 MG/DL CREATININE (test code = 2214) 0.51 MG/DL eGFR AMER. (test code 136 ML/MIN/1.73 = 03194) eGFR NON- AMER. (test 118 ML/MIN/1.73 code = 49477) CALC BUN/CREAT (test code = 14 RATIO 2235) SODIUM (test code = 2231) 139 MEQ/L POTASSIUM (test code = 2228) 4.2 MEQ/L CHLORIDE (test code = 2215) 99 MEQ/L CARBON DIOXIDE (test code = 27 MEQ/L 220) CALCIUM (test code = 2209) 9.6 MG/DL PROTEIN, TOTAL (test code = 7.5 G/DL 222) ALBUMIN (test code = 2201) 4.7 G/DL CALC GLOBULIN (test code = 2.8 G/DL 2240) CALC A/G RATIO (test code = 1.7 RATIO 2234) BILIRUBIN, TOTAL (test code = 0.3 MG/DL 2206) ALKALINE PHOSPHATASE (test 92 U/L code = 2204) AST (test code = 2218) 16 U/L ALT (test code = 2219) 10 U/L COMPREHENSIVE METABOLIC [id number] 00:00:00 Test Item Value Reference Range Interpretation Comments GLUCOSE (test code = 2217) 169 MG/DL BUN (test code = 2208) 7 MG/DL CREATININE (test code = 2214) 0.51 MG/DL eGFR AMER. (test code 136 ML/MIN/1.73 = 45127) eGFR NON- AMER. (test 118 ML/MIN/1.73 code = 36887) CALC BUN/CREAT (test code = 14 RATIO 2235) SODIUM (test code = 2231) 139 MEQ/L POTASSIUM (test code = 2228) 4.2 MEQ/L CHLORIDE (test code = 2215) 99 MEQ/L CARBON DIOXIDE (test code = 27 MEQ/L 2205) CALCIUM (test code = 2209) 9.6 MG/DL PROTEIN, TOTAL (test code = 7.5 G/DL 2228) ALBUMIN (test code = 2201) 4.7 G/DL CALC GLOBULIN (test code = 2.8 G/DL 2240) CALC A/G RATIO (test code = 1.7 RATIO 2234) BILIRUBIN, TOTAL (test code = 0.3 MG/DL 2206) ALKALINE PHOSPHATASE (test 92 U/L code = 2204) AST (test code = 2218) 16 U/L ALT (test code = 2219) 10 U/L LIPID [id number] 00:00:00 Test Item Value Reference Range Interpretation Comments CHOLESTEROL (test code = 2210) 182 MG/DL TRIGLYCERIDES (test code = 2232) 489 MG/DL HDL CHOLESTEROL (test code = 43 MG/DL 0) CALC LDL CHOL (test code = 2237) NOTE MG/DL RISK RATIO LDL/HDL (test code = (NOTE) RATIO 2238) LIPID [id number] 00:00:00 Test Item Value Reference Range Interpretation Comments CHOLESTEROL (test code = 2210) 182 MG/DL TRIGLYCERIDES (test code = 2232) 489 MG/DL HDL CHOLESTEROL (test code = 43 MG/DL 2220) CALC LDL CHOL (test code = 2237) NOTE MG/DL RISK RATIO LDL/HDL (test code = (NOTE) RATIO 2238) HEMOGLOBIN [id number] 00:00:00 Test Item Value Reference Range Interpretation Comments HEMOGLOBIN A1c (test code = 45751) 6.1 % HEMOGLOBIN [id number] 00:00:00 Test Item Value Reference Range Interpretation Comments HEMOGLOBIN A1c (test code = 59861) 6.1 % HEMOGLOBIN [id number] 00:00:00 Test Item Value Reference Range Interpretation Comments HEMOGLOBIN A1c (test code = 82486) 6.1 % COMPREHENSIVE METABOLIC [id number] 00:00:00 Test Item Value Reference Range Interpretation Comments GLUCOSE (test code = 2217) 169 MG/DL BUN (test code = 2208) 7 MG/DL CREATININE (test code = 2214) 0.51 MG/DL eGFR AMER. (test code 136 ML/MIN/1.73 = 29852) eGFR NON- AMER. (test 118 ML/MIN/1.73 code = 47642) CALC BUN/CREAT (test code = 14 RATIO 2235) SODIUM (test code = 2231) 139 MEQ/L POTASSIUM (test code = 2228) 4.2 MEQ/L CHLORIDE (test code = 2215) 99 MEQ/L CARBON DIOXIDE (test code = 27 MEQ/L 2205) CALCIUM (test code = 2209) 9.6 MG/DL PROTEIN, TOTAL (test code = 7.5 G/DL 2228) ALBUMIN (test code = 2201) 4.7 G/DL CALC GLOBULIN (test code = 2.8 G/DL 2240) CALC A/G RATIO (test code = 1.7 RATIO 2234) BILIRUBIN, TOTAL (test code = 0.3 MG/DL 2206) ALKALINE PHOSPHATASE (test 92 U/L code = 2204) AST (test code = 2218) 16 U/L ALT (test code = 2219) 10 U/L MICROALBUMIN/CREATININE, RANDOM AND [id number] 00:00:00 Test Item Value Reference Range Interpretation Comments CREATININE, URINE, CONC. (test 86.9 MG/DL code = 2072) MICROALBUMIN, RANDOM (test code = 3.2 MG/DL 08672) CALC MICROALB/CREAT RND (test code 37 MG/G = 37453) MICROALBUMIN/CREATININE, RANDOM AND [id number] 00:00:00 Test Item Value Reference Range Interpretation Comments CREATININE, URINE, CONC. (test 86.9 MG/DL code = 2072) MICROALBUMIN, RANDOM (test code = 3.2 MG/DL 32048) CALC MICROALB/CREAT RND (test code 37 MG/G = 54067) MICROALBUMIN/CREATININE, RANDOM AND [id number] 00:00:00 Test Item Value Reference Range Interpretation Comments CREATININE, URINE, CONC. (test 86.9 MG/DL code = 2072) MICROALBUMIN, RANDOM (test code = 3.2 MG/DL 64453) CALC MICROALB/CREAT RND (test code 37 MG/G = 89635) MICROALBUMIN/CREATININE, RANDOM AND [id number] 00:00:00 Test Item Value Reference Range Interpretation Comments CREATININE, URINE, CONC. (test 86.9 MG/DL code = 2072) MICROALBUMIN, RANDOM (test code = 3.2 MG/DL 55650) CALC MICROALB/CREAT RND (test code 37 MG/G = 50607) MICROALBUMIN/CREATININE, RANDOM AND [id number] 00:00:00 Test Item Value Reference Range Interpretation Comments CREATININE, URINE, CONC. (test 86.9 MG/DL code = 2072) MICROALBUMIN, RANDOM (test code = 3.2 MG/DL 96284) CALC MICROALB/CREAT RND (test code 37 MG/G = 31359) MICROALBUMIN/CREATININE, RANDOM AND [id number] 00:00:00 Test Item Value Reference Range Interpretation Comments CREATININE, URINE, TEST NOT PERFORMED MG/DL CONC. (test code = 2072) MICROALBUMIN, RANDOM TEST NOT PERFORMED MG/DL (test code = 74324) CALC MICROALB/CREAT TEST NOT PERFORMED MG/G RND (test code = 04965) MICROALBUMIN/CREATININE, RANDOM AND [id number] 00:00:00 Test Item Value Reference Range Interpretation Comments CREATININE, URINE, TEST NOT PERFORMED MG/DL CONC. (test code = 2) MICROALBUMIN, RANDOM TEST NOT PERFORMED MG/DL (test code = 75818) CALC MICROALB/CREAT TEST NOT PERFORMED MG/G RND (test code = 42320) MICROALBUMIN/CREATININE, RANDOM AND [id number] 00:00:00 Test Item Value Reference Range Interpretation Comments CREATININE, URINE, TEST NOT PERFORMED MG/DL CONC. (test code = 2) MICROALBUMIN, RANDOM TEST NOT PERFORMED MG/DL (test code = 77914) CALC MICROALB/CREAT TEST NOT PERFORMED MG/G RND (test code = 07752) MICROALBUMIN/CREATININE, RANDOM AND [id number] 00:00:00 Test Item Value Reference Range Interpretation Comments CREATININE, URINE, TEST NOT PERFORMED MG/DL CONC. (test code = 2071) MICROALBUMIN, RANDOM TEST NOT PERFORMED MG/DL (test code = 48286) CALC MICROALB/CREAT TEST NOT PERFORMED MG/G RND (test code = 99896) MICROALBUMIN/CREATININE, RANDOM AND [id number] 00:00:00 Test Item Value Reference Range Interpretation Comments CREATININE, URINE, TEST NOT PERFORMED MG/DL CONC. (test code = 2072) MICROALBUMIN, RANDOM TEST NOT PERFORMED MG/DL (test code = 82580) CALC MICROALB/CREAT TEST NOT PERFORMED MG/G RND (test code = 45696) HEMOGLOBIN [id number] 00:00:00 Test Item Value Reference Range Interpretation Comments HEMOGLOBIN A1c (test code = 09091) 9.0 % HEMOGLOBIN [id number] 00:00:00 Test Item Value Reference Range Interpretation Comments HEMOGLOBIN A1c (test code = 55276) 9.0 % [id number] 00:00:00 Test Item Value Reference Range Interpretation Comments TSH (test code = 2821) 0.853 UIU/ML [id number] 00:00:00 Test Item Value Reference Range Interpretation Comments TSH (test code = 2821) 0.853 UIU/ML COMPREHENSIVE METABOLIC [id number] 00:00:00 Test Item Value Reference Range Interpretation Comments GLUCOSE (test code = 2217) 298 MG/DL BUN (test code = 2208) 8 MG/DL CREATININE (test code = 2214) 0.39 MG/DL eGFR AMER. (test code 149 ML/MIN/1.73 = 33600) eGFR NON- AMER. (test 129 ML/MIN/1.73 code = 34746) CALC BUN/CREAT (test code = 21 RATIO 2235) SODIUM (test code = 2231) 136 MEQ/L POTASSIUM (test code = 2228) 4.3 MEQ/L CHLORIDE (test code = 2215) 98 MEQ/L CARBON DIOXIDE (test code = 21 MEQ/L 2205) CALCIUM (test code = 2209) 9.1 MG/DL PROTEIN, TOTAL (test code = 6.7 G/DL 2228) ALBUMIN (test code = 2201) 4.3 G/DL CALC GLOBULIN (test code = 2.4 G/DL 224) CALC A/G RATIO (test code = 1.8 RATIO 2234) BILIRUBIN, TOTAL (test code = 0.1 MG/DL 2206) ALKALINE PHOSPHATASE (test 81 U/L code = 2204) AST (test code = 2218) 13 U/L ALT (test code = 2219) 8 U/L LIPID [id number] 00:00:00 Test Item Value Reference Range Interpretation Comments CHOLESTEROL (test code = 2210) 233 MG/DL TRIGLYCERIDES (test code = 2232) 775 MG/DL HDL CHOLESTEROL (test code = 39 MG/DL 2219) CALC LDL CHOL (test code = 2237) NOTE MG/DL RISK RATIO LDL/HDL (test code = (NOTE) RATIO 2238) CBC W/AUTO [id number] 00:00:00 Test Item Value Reference Range Interpretation Comments WBC (test code = 1001) 8.9 K/UL RBC (test code = 1002) 5.07 M/UL HEMOGLOBIN (test code = 1003) 11.4 G/DL HEMATOCRIT (test code = 1004) 37.3 % MCV (test code = 1005) 73.6 fL MCH (test code = 1006) 22.5 PG MCHC (test code = 1007) 30.6 G/DL RDW (test code = 1038) 24.8 % NEUTROPHILS (test code = 1008) 71.1 % LYMPHOCYTES (test code = 1010) 21.8 % MONOCYTES (test code = 1011) 5.2 % EOSINOPHILS (test code = 1012) 1.8 % BASOPHILS (test code = 1013) 0.1 % PLATELET COUNT (test code = 1015) 317 K/UL CBC W/AUTO [id number] 00:00:00 Test Item Value Reference Range Interpretation Comments WBC (test code = 1001) 8.9 K/UL RBC (test code = 1002) 5.07 M/UL HEMOGLOBIN (test code = 1003) 11.4 G/DL HEMATOCRIT (test code = 1004) 37.3 % MCV (test code = 1005) 73.6 fL MCH (test code = 1006) 22.5 PG MCHC (test code = 1007) 30.6 G/DL RDW (test code = 1038) 24.8 % NEUTROPHILS (test code = 1008) 71.1 % LYMPHOCYTES (test code = 1010) 21.8 % MONOCYTES (test code = 1011) 5.2 % EOSINOPHILS (test code = 1012) 1.8 % BASOPHILS (test code = 1013) 0.1 % PLATELET COUNT (test code = 1015) 317 K/UL CBC W/AUTO [id number] 00:00:00 Test Item Value Reference Range Interpretation Comments WBC (test code = 1001) 8.9 K/UL RBC (test code = 1002) 5.07 M/UL HEMOGLOBIN (test code = 1003) 11.4 G/DL HEMATOCRIT (test code = 1004) 37.3 % MCV (test code = 1005) 73.6 fL MCH (test code = 1006) 22.5 PG MCHC (test code = 1007) 30.6 G/DL RDW (test code = 1038) 24.8 % NEUTROPHILS (test code = 1008) 71.1 % LYMPHOCYTES (test code = 1010) 21.8 % MONOCYTES (test code = 1011) 5.2 % EOSINOPHILS (test code = 1012) 1.8 % BASOPHILS (test code = 1013) 0.1 % PLATELET COUNT (test code = 1015) 317 K/UL HEMOGLOBIN [id number] 00:00:00 Test Item Value Reference Range Interpretation Comments HEMOGLOBIN A1c (test code = 91161) 9.0 % HEMOGLOBIN [id number] 00:00:00 Test Item Value Reference Range Interpretation Comments HEMOGLOBIN A1c (test code = 28410) 9.0 % HEMOGLOBIN [id number] 00:00:00 Test Item Value Reference Range Interpretation Comments HEMOGLOBIN A1c (test code = 47376) 9.0 % [id number] 00:00:00 Test Item Value Reference Range Interpretation Comments TSH (test code = 2821) 0.853 UIU/ML [id number] 00:00:00 Test Item Value Reference Range Interpretation Comments TSH (test code = 2821) 0.853 UIU/ML [id number] 00:00:00 Test Item Value Reference Range Interpretation Comments TSH (test code = 2821) 0.853 UIU/ML COMPREHENSIVE METABOLIC [id number] 00:00:00 Test Item Value Reference Range Interpretation Comments GLUCOSE (test code = 2217) 298 MG/DL BUN (test code = 2208) 8 MG/DL CREATININE (test code = 2214) 0.39 MG/DL eGFR AMER. (test code 149 ML/MIN/1.73 = 80784) eGFR NON- AMER. (test 129 ML/MIN/1.73 code = 23033) CALC BUN/CREAT (test code = 21 RATIO 2235) SODIUM (test code = 2231) 136 MEQ/L POTASSIUM (test code = 2228) 4.3 MEQ/L CHLORIDE (test code = 2215) 98 MEQ/L CARBON DIOXIDE (test code = 21 MEQ/L 2205) CALCIUM (test code = 2209) 9.1 MG/DL PROTEIN, TOTAL (test code = 6.7 G/DL 2228) ALBUMIN (test code = 2201) 4.3 G/DL CALC GLOBULIN (test code = 2.4 G/DL 0) CALC A/G RATIO (test code = 1.8 RATIO 2233) BILIRUBIN, TOTAL (test code = 0.1 MG/DL 2206) ALKALINE PHOSPHATASE (test 81 U/L code = 2204) AST (test code = 2218) 13 U/L ALT (test code = 2219) 8 U/L COMPREHENSIVE METABOLIC [id number] 00:00:00 Test Item Value Reference Range Interpretation Comments GLUCOSE (test code = 2217) 298 MG/DL BUN (test code = 2208) 8 MG/DL CREATININE (test code = 2214) 0.39 MG/DL eGFR AMER. (test code 149 ML/MIN/1.73 = 91667) eGFR NON- AMER. (test 129 ML/MIN/1.73 code = 85137) CALC BUN/CREAT (test code = 21 RATIO 2235) SODIUM (test code = 2231) 136 MEQ/L POTASSIUM (test code = 2228) 4.3 MEQ/L CHLORIDE (test code = 2215) 98 MEQ/L CARBON DIOXIDE (test code = 21 MEQ/L 2205) CALCIUM (test code = 2209) 9.1 MG/DL PROTEIN, TOTAL (test code = 6.7 G/DL 2228) ALBUMIN (test code = 2201) 4.3 G/DL CALC GLOBULIN (test code = 2.4 G/DL 224) CALC A/G RATIO (test code = 1.8 RATIO 4) BILIRUBIN, TOTAL (test code = 0.1 MG/DL 2206) ALKALINE PHOSPHATASE (test 81 U/L code = 2204) AST (test code = 2218) 13 U/L ALT (test code = 2219) 8 U/L LIPID [id number] 00:00:00 Test Item Value Reference Range Interpretation Comments CHOLESTEROL (test code = 2210) 233 MG/DL TRIGLYCERIDES (test code = 2232) 775 MG/DL HDL CHOLESTEROL (test code = 39 MG/DL 2220) CALC LDL CHOL (test code = 2237) NOTE MG/DL RISK RATIO LDL/HDL (test code = (NOTE) RATIO 2238) LIPID [id number] 00:00:00 Test Item Value Reference Range Interpretation Comments CHOLESTEROL (test code = 2210) 233 MG/DL TRIGLYCERIDES (test code = 2232) 775 MG/DL HDL CHOLESTEROL (test code = 39 MG/DL 2220) CALC LDL CHOL (test code = 2237) NOTE MG/DL RISK RATIO LDL/HDL (test code = (NOTE) RATIO 2238) CBC W/AUTO [id number] 00:00:00 Test Item Value Reference Range Interpretation Comments WBC (test code = 1001) 8.9 K/UL RBC (test code = 1002) 5.07 M/UL HEMOGLOBIN (test code = 1003) 11.4 G/DL HEMATOCRIT (test code = 1004) 37.3 % MCV (test code = 1005) 73.6 fL MCH (test code = 1006) 22.5 PG MCHC (test code = 1007) 30.6 G/DL RDW (test code = 1038) 24.8 % NEUTROPHILS (test code = 1008) 71.1 % LYMPHOCYTES (test code = 1010) 21.8 % MONOCYTES (test code = 1011) 5.2 % EOSINOPHILS (test code = 1012) 1.8 % BASOPHILS (test code = 1013) 0.1 % PLATELET COUNT (test code = 1015) 317 K/UL CBC W/AUTO [id number] 00:00:00 Test Item Value Reference Range Interpretation Comments WBC (test code = 1001) 8.9 K/UL RBC (test code = 1002) 5.07 M/UL HEMOGLOBIN (test code = 1003) 11.4 G/DL HEMATOCRIT (test code = 1004) 37.3 % MCV (test code = 1005) 73.6 fL MCH (test code = 1006) 22.5 PG MCHC (test code = 1007) 30.6 G/DL RDW (test code = 1038) 24.8 % NEUTROPHILS (test code = 1008) 71.1 % LYMPHOCYTES (test code = 1010) 21.8 % MONOCYTES (test code = 1011) 5.2 % EOSINOPHILS (test code = 1012) 1.8 % BASOPHILS (test code = 1013) 0.1 % PLATELET COUNT (test code = 1015) 317 K/UL CBC W/AUTO [id number] 00:00:00 Test Item Value Reference Range Interpretation Comments WBC (test code = 1001) 8.9 K/UL RBC (test code = 1002) 5.07 M/UL HEMOGLOBIN (test code = 1003) 11.4 G/DL HEMATOCRIT (test code = 1004) 37.3 % MCV (test code = 1005) 73.6 fL MCH (test code = 1006) 22.5 PG MCHC (test code = 1007) 30.6 G/DL RDW (test code = 1038) 24.8 % NEUTROPHILS (test code = 1008) 71.1 % LYMPHOCYTES (test code = 1010) 21.8 % MONOCYTES (test code = 1011) 5.2 % EOSINOPHILS (test code = 1012) 1.8 % BASOPHILS (test code = 1013) 0.1 % PLATELET COUNT (test code = 1015) 317 K/UL HEMOGLOBIN [id number] 00:00:00 Test Item Value Reference Range Interpretation Comments HEMOGLOBIN A1c (test code = 55302) 9.0 % HEMOGLOBIN [id number] 00:00:00 Test Item Value Reference Range Interpretation Comments HEMOGLOBIN A1c (test code = 80306) 9.0 % HEMOGLOBIN [id number] 00:00:00 Test Item Value Reference Range Interpretation Comments HEMOGLOBIN A1c (test code = 84545) 9.0 % [id number] 00:00:00 Test Item Value Reference Range Interpretation Comments TSH (test code = 2821) 0.853 UIU/ML [id number] 00:00:00 Test Item Value Reference Range Interpretation Comments TSH (test code = 2821) 0.853 UIU/ML [id number] 00:00:00 Test Item Value Reference Range Interpretation Comments TSH (test code = 2821) 0.853 UIU/ML COMPREHENSIVE METABOLIC [id number] 00:00:00 Test Item Value Reference Range Interpretation Comments GLUCOSE (test code = 2217) 298 MG/DL BUN (test code = 2208) 8 MG/DL CREATININE (test code = 2214) 0.39 MG/DL eGFR AMER. (test code 149 ML/MIN/1.73 = 64588) eGFR NON- AMER. (test 129 ML/MIN/1.73 code = 61089) CALC BUN/CREAT (test code = 21 RATIO 2234) SODIUM (test code = 2231) 136 MEQ/L POTASSIUM (test code = 2228) 4.3 MEQ/L CHLORIDE (test code = 2215) 98 MEQ/L CARBON DIOXIDE (test code = 21 MEQ/L 2205) CALCIUM (test code = 2209) 9.1 MG/DL PROTEIN, TOTAL (test code = 6.7 G/DL 2228) ALBUMIN (test code = 2201) 4.3 G/DL CALC GLOBULIN (test code = 2.4 G/DL 2239) CALC A/G RATIO (test code = 1.8 RATIO 2233) BILIRUBIN, TOTAL (test code = 0.1 MG/DL 2207) ALKALINE PHOSPHATASE (test 81 U/L code = 2204) AST (test code = 2218) 13 U/L ALT (test code = 2219) 8 U/L COMPREHENSIVE METABOLIC [id number] 00:00:00 Test Item Value Reference Range Interpretation Comments GLUCOSE (test code = 2217) 298 MG/DL BUN (test code = 2208) 8 MG/DL CREATININE (test code = 2214) 0.39 MG/DL eGFR AMER. (test code 149 ML/MIN/1.73 = 93223) eGFR NON- AMER. (test 129 ML/MIN/1.73 code = 01118) CALC BUN/CREAT (test code = 21 RATIO 2235) SODIUM (test code = 2231) 136 MEQ/L POTASSIUM (test code = 2228) 4.3 MEQ/L CHLORIDE (test code = 2215) 98 MEQ/L CARBON DIOXIDE (test code = 21 MEQ/L 2205) CALCIUM (test code = 2209) 9.1 MG/DL PROTEIN, TOTAL (test code = 6.7 G/DL 2228) ALBUMIN (test code = 2201) 4.3 G/DL CALC GLOBULIN (test code = 2.4 G/DL 2240) CALC A/G RATIO (test code = 1.8 RATIO 2234) BILIRUBIN, TOTAL (test code = 0.1 MG/DL 2206) ALKALINE PHOSPHATASE (test 81 U/L code = 2204) AST (test code = 2218) 13 U/L ALT (test code = 2219) 8 U/L LIPID [id number] 00:00:00 Test Item Value Reference Range Interpretation Comments CHOLESTEROL (test code = 2210) 233 MG/DL TRIGLYCERIDES (test code = 2232) 775 MG/DL HDL CHOLESTEROL (test code = 39 MG/DL 2220) CALC LDL CHOL (test code = 2237) NOTE MG/DL RISK RATIO LDL/HDL (test code = (NOTE) RATIO 2238) LIPID [id number] 00:00:00 Test Item Value Reference Range Interpretation Comments CHOLESTEROL (test code = 2210) 233 MG/DL TRIGLYCERIDES (test code = 2232) 775 MG/DL HDL CHOLESTEROL (test code = 39 MG/DL 2220) CALC LDL CHOL (test code = 2237) NOTE MG/DL RISK RATIO LDL/HDL (test code = (NOTE) RATIO 2238) CBC W/AUTO [id number] 00:00:00 Test Item Value Reference Range Interpretation Comments WBC (test code = 1001) 8.9 K/UL RBC (test code = 1002) 5.07 M/UL HEMOGLOBIN (test code = 1003) 11.4 G/DL HEMATOCRIT (test code = 1004) 37.3 % MCV (test code = 1005) 73.6 fL MCH (test code = 1006) 22.5 PG MCHC (test code = 1007) 30.6 G/DL RDW (test code = 1038) 24.8 % NEUTROPHILS (test code = 1008) 71.1 % LYMPHOCYTES (test code = 1010) 21.8 % MONOCYTES (test code = 1011) 5.2 % EOSINOPHILS (test code = 1012) 1.8 % BASOPHILS (test code = 1013) 0.1 % PLATELET COUNT (test code = 1015) 317 K/UL CBC W/AUTO [id number] 00:00:00 Test Item Value Reference Range Interpretation Comments WBC (test code = 1001) 8.9 K/UL RBC (test code = 1002) 5.07 M/UL HEMOGLOBIN (test code = 1003) 11.4 G/DL HEMATOCRIT (test code = 1004) 37.3 % MCV (test code = 1005) 73.6 fL MCH (test code = 1006) 22.5 PG MCHC (test code = 1007) 30.6 G/DL RDW (test code = 1038) 24.8 % NEUTROPHILS (test code = 1008) 71.1 % LYMPHOCYTES (test code = 1010) 21.8 % MONOCYTES (test code = 1011) 5.2 % EOSINOPHILS (test code = 1012) 1.8 % BASOPHILS (test code = 1013) 0.1 % PLATELET COUNT (test code = 1015) 317 K/UL CBC W/AUTO [id number] 00:00:00 Test Item Value Reference Range Interpretation Comments WBC (test code = 1001) 7.4 K/UL RBC (test code = 1002) 4.82 M/UL HEMOGLOBIN (test code = 1003) 9.1 G/DL HEMATOCRIT (test code = 1004) 31.3 % MCV (test code = 1005) 64.9 fL MCH (test code = 1006) 18.9 PG MCHC (test code = 1007) 29.1 G/DL RDW (test code = 1038) 20.5 % NEUTROPHILS (test code = 1008) 69 % LYMPHOCYTES (test code = 1010) 23 % MONOCYTES (test code = 1011) 6 % EOSINOPHILS (test code = 1012) 2 % BASOPHILS (test code = 1013) % PLATELET COUNT (test code = 1015) 354 K/UL COMMENTS (test code = 1016) (NOTE) CBC W/AUTO [id number] 00:00:00 Test Item Value Reference Range Interpretation Comments WBC (test code = 1001) 7.4 K/UL RBC (test code = 1002) 4.82 M/UL HEMOGLOBIN (test code = 1003) 9.1 G/DL HEMATOCRIT (test code = 1004) 31.3 % MCV (test code = 1005) 64.9 fL MCH (test code = 1006) 18.9 PG MCHC (test code = 1007) 29.1 G/DL RDW (test code = 1038) 20.5 % NEUTROPHILS (test code = 1008) 69 % LYMPHOCYTES (test code = 1010) 23 % MONOCYTES (test code = 1011) 6 % EOSINOPHILS (test code = 1012) 2 % BASOPHILS (test code = 1013) % PLATELET COUNT (test code = 1015) 354 K/UL COMMENTS (test code = 1016) (NOTE) HEMOGLOBIN [id number] 00:00:00 Test Item Value Reference Range Interpretation Comments HEMOGLOBIN A1c (test code = 64460) 8.3 % HEMOGLOBIN [id number] 00:00:00 Test Item Value Reference Range Interpretation Comments HEMOGLOBIN A1c (test code = 36234) 8.3 % [id number] 00:00:00 Test Item Value Reference Range Interpretation Comments TSH (test code = 2821) 1.1 UIU/ML [id number] 00:00:00 Test Item Value Reference Range Interpretation Comments TSH (test code = 2821) 1.1 UIU/ML COMPREHENSIVE METABOLIC [id number] 00:00:00 Test Item Value Reference Range Interpretation Comments GLUCOSE (test code = 2217) 196 MG/DL BUN (test code = 2208) 8 MG/DL CREATININE (test code = 2214) 0.48 MG/DL eGFR AMER. (test code 141 ML/MIN/1.73 = 12529) eGFR NON- AMER. (test 122 ML/MIN/1.73 code = 72641) CALCULATED BUN/CREAT (test 17 RATIO code = 2235) SODIUM (test code = 2231) 133 MEQ/L POTASSIUM (test code = 2228) 4.0 MEQ/L CHLORIDE (test code = 2215) 99 MEQ/L CARBON DIOXIDE (test code = 22 MEQ/L 220) CALCIUM (test code = 2209) 9.2 MG/DL PROTEIN, TOTAL (test code = 7.1 G/DL 2228) ALBUMIN (test code = 2201) 4.3 G/DL CALCULATED GLOBULIN (test 2.8 G/DL code = 2240) CALCULATED A/G RATIO (test 1.5 RATIO code = 2234) BILIRUBIN, TOTAL (test code = 0.4 MG/DL 2206) ALKALINE PHOSPHATASE (test 67 U/L code = 2204) SGOT (AST) (test code = 2218) 13 U/L SGPT (ALT) (test code = 2219) 7 U/L LIPID [id number] 00:00:00 Test Item Value Reference Range Interpretation Comments CHOLESTEROL (test code = 2210) 289 MG/DL TRIGLYCERIDES (test code = 2232) 1092 MG/DL HDL CHOLESTEROL (test code = 2220) 41 MG/DL CALCULATED LDL CHOL (test code = NOTE MG/DL 2236) CBC W/AUTO [id number] 00:00:00 Test Item Value Reference Range Interpretation Comments WBC (test code = 1001) 7.4 K/UL RBC (test code = 1002) 4.82 M/UL HEMOGLOBIN (test code = 1003) 9.1 G/DL HEMATOCRIT (test code = 1004) 31.3 % MCV (test code = 1005) 64.9 fL MCH (test code = 1006) 18.9 PG MCHC (test code = 1007) 29.1 G/DL RDW (test code = 1038) 20.5 % NEUTROPHILS (test code = 1008) 69 % LYMPHOCYTES (test code = 1010) 23 % MONOCYTES (test code = 1011) 6 % EOSINOPHILS (test code = 1012) 2 % BASOPHILS (test code = 1013) % PLATELET COUNT (test code = 1015) 354 K/UL COMMENTS (test code = 1016) (NOTE) CBC W/AUTO [id number] 00:00:00 Test Item Value Reference Range Interpretation Comments WBC (test code = 1001) 7.4 K/UL RBC (test code = 1002) 4.82 M/UL HEMOGLOBIN (test code = 1003) 9.1 G/DL HEMATOCRIT (test code = 1004) 31.3 % MCV (test code = 1005) 64.9 fL MCH (test code = 1006) 18.9 PG MCHC (test code = 1007) 29.1 G/DL RDW (test code = 1038) 20.5 % NEUTROPHILS (test code = 1008) 69 % LYMPHOCYTES (test code = 1010) 23 % MONOCYTES (test code = 1011) 6 % EOSINOPHILS (test code = 1012) 2 % BASOPHILS (test code = 1013) % PLATELET COUNT (test code = 1015) 354 K/UL COMMENTS (test code = 1016) (NOTE) CBC W/AUTO [id number] 00:00:00 Test Item Value Reference Range Interpretation Comments WBC (test code = 1001) 7.4 K/UL RBC (test code = 1002) 4.82 M/UL HEMOGLOBIN (test code = 1003) 9.1 G/DL HEMATOCRIT (test code = 1004) 31.3 % MCV (test code = 1005) 64.9 fL MCH (test code = 1006) 18.9 PG MCHC (test code = 1007) 29.1 G/DL RDW (test code = 1038) 20.5 % NEUTROPHILS (test code = 1008) 69 % LYMPHOCYTES (test code = 1010) 23 % MONOCYTES (test code = 1011) 6 % EOSINOPHILS (test code = 1012) 2 % BASOPHILS (test code = 1013) % PLATELET COUNT (test code = 1015) 354 K/UL COMMENTS (test code = 1016) (NOTE) HEMOGLOBIN [id number] 00:00:00 Test Item Value Reference Range Interpretation Comments HEMOGLOBIN A1c (test code = 64362) 8.3 % HEMOGLOBIN [id number] 00:00:00 Test Item Value Reference Range Interpretation Comments HEMOGLOBIN A1c (test code = 35585) 8.3 % HEMOGLOBIN [id number] 00:00:00 Test Item Value Reference Range Interpretation Comments HEMOGLOBIN A1c (test code = 39419) 8.3 % [id number] 00:00:00 Test Item Value Reference Range Interpretation Comments TSH (test code = 2821) 1.1 UIU/ML [id number] 00:00:00 Test Item Value Reference Range Interpretation Comments TSH (test code = 2821) 1.1 UIU/ML [id number] 00:00:00 Test Item Value Reference Range Interpretation Comments TSH (test code = 2821) 1.1 UIU/ML COMPREHENSIVE METABOLIC [id number] 00:00:00 Test Item Value Reference Range Interpretation Comments GLUCOSE (test code = 2217) 196 MG/DL BUN (test code = 2208) 8 MG/DL CREATININE (test code = 2214) 0.48 MG/DL eGFR AMER. (test code 141 ML/MIN/1.73 = 06155) eGFR NON- AMER. (test 122 ML/MIN/1.73 code = 27055) CALCULATED BUN/CREAT (test 17 RATIO code = 2235) SODIUM (test code = 2231) 133 MEQ/L POTASSIUM (test code = 2228) 4.0 MEQ/L CHLORIDE (test code = 2215) 99 MEQ/L CARBON DIOXIDE (test code = 22 MEQ/L 2205) CALCIUM (test code = 2209) 9.2 MG/DL PROTEIN, TOTAL (test code = 7.1 G/DL 2228) ALBUMIN (test code = 2201) 4.3 G/DL CALCULATED GLOBULIN (test 2.8 G/DL code = 2240) CALCULATED A/G RATIO (test 1.5 RATIO code = 2234) BILIRUBIN, TOTAL (test code = 0.4 MG/DL 2206) ALKALINE PHOSPHATASE (test 67 U/L code = 2204) SGOT (AST) (test code = 2218) 13 U/L SGPT (ALT) (test code = 2219) 7 U/L COMPREHENSIVE METABOLIC [id number] 00:00:00 Test Item Value Reference Range Interpretation Comments GLUCOSE (test code = 2217) 196 MG/DL BUN (test code = 2208) 8 MG/DL CREATININE (test code = 2214) 0.48 MG/DL eGFR AMER. (test code 141 ML/MIN/1.73 = 04428) eGFR NON- AMER. (test 122 ML/MIN/1.73 code = 99087) CALCULATED BUN/CREAT (test 17 RATIO code = 2235) SODIUM (test code = 2231) 133 MEQ/L POTASSIUM (test code = 2228) 4.0 MEQ/L CHLORIDE (test code = 2215) 99 MEQ/L CARBON DIOXIDE (test code = 22 MEQ/L 2205) CALCIUM (test code = 2209) 9.2 MG/DL PROTEIN, TOTAL (test code = 7.1 G/DL 2228) ALBUMIN (test code = 2201) 4.3 G/DL CALCULATED GLOBULIN (test 2.8 G/DL code = 2240) CALCULATED A/G RATIO (test 1.5 RATIO code = 2234) BILIRUBIN, TOTAL (test code = 0.4 MG/DL 2206) ALKALINE PHOSPHATASE (test 67 U/L code = 220) SGOT (AST) (test code = 2218) 13 U/L SGPT (ALT) (test code = 2219) 7 U/L LIPID [id number] 00:00:00 Test Item Value Reference Range Interpretation Comments CHOLESTEROL (test code = 2210) 289 MG/DL TRIGLYCERIDES (test code = 2232) 1092 MG/DL HDL CHOLESTEROL (test code = 2220) 41 MG/DL CALCULATED LDL CHOL (test code = NOTE MG/DL 2237) LIPID [id number] 00:00:00 Test Item Value Reference Range Interpretation Comments CHOLESTEROL (test code = 2210) 289 MG/DL TRIGLYCERIDES (test code = 2232) 1092 MG/DL HDL CHOLESTEROL (test code = 2220) 41 MG/DL CALCULATED LDL CHOL (test code = NOTE MG/DL 2237) CBC W/AUTO [id number] 00:00:00 Test Item Value Reference Range Interpretation Comments WBC (test code = 1001) 7.4 K/UL RBC (test code = 1002) 4.82 M/UL HEMOGLOBIN (test code = 1003) 9.1 G/DL HEMATOCRIT (test code = 1004) 31.3 % MCV (test code = 1005) 64.9 fL MCH (test code = 1006) 18.9 PG MCHC (test code = 1007) 29.1 G/DL RDW (test code = 1038) 20.5 % NEUTROPHILS (test code = 1008) 69 % LYMPHOCYTES (test code = 1010) 23 % MONOCYTES (test code = 1011) 6 % EOSINOPHILS (test code = 1012) 2 % BASOPHILS (test code = 1013) % PLATELET COUNT (test code = 1015) 354 K/UL COMMENTS (test code = 1016) (NOTE) CBC W/AUTO [id number] 00:00:00 Test Item Value Reference Range Interpretation Comments WBC (test code = 1001) 7.4 K/UL RBC (test code = 1002) 4.82 M/UL HEMOGLOBIN (test code = 1003) 9.1 G/DL HEMATOCRIT (test code = 1004) 31.3 % MCV (test code = 1005) 64.9 fL MCH (test code = 1006) 18.9 PG MCHC (test code = 1007) 29.1 G/DL RDW (test code = 1038) 20.5 % NEUTROPHILS (test code = 1008) 69 % LYMPHOCYTES (test code = 1010) 23 % MONOCYTES (test code = 1011) 6 % EOSINOPHILS (test code = 1012) 2 % BASOPHILS (test code = 1013) % PLATELET COUNT (test code = 1015) 354 K/UL COMMENTS (test code = 1016) (NOTE) CBC W/AUTO [id number] 00:00:00 Test Item Value Reference Range Interpretation Comments WBC (test code = 1001) 7.4 K/UL RBC (test code = 1002) 4.82 M/UL HEMOGLOBIN (test code = 1003) 9.1 G/DL HEMATOCRIT (test code = 1004) 31.3 % MCV (test code = 1005) 64.9 fL MCH (test code = 1006) 18.9 PG MCHC (test code = 1007) 29.1 G/DL RDW (test code = 1038) 20.5 % NEUTROPHILS (test code = 1008) 69 % LYMPHOCYTES (test code = 1010) 23 % MONOCYTES (test code = 1011) 6 % EOSINOPHILS (test code = 1012) 2 % BASOPHILS (test code = 1013) % PLATELET COUNT (test code = 1015) 354 K/UL COMMENTS (test code = 1016) (NOTE) HEMOGLOBIN [id number] 00:00:00 Test Item Value Reference Range Interpretation Comments HEMOGLOBIN A1c (test code = 84158) 8.3 % HEMOGLOBIN [id number] 00:00:00 Test Item Value Reference Range Interpretation Comments HEMOGLOBIN A1c (test code = 07842) 8.3 % HEMOGLOBIN [id number] 00:00:00 Test Item Value Reference Range Interpretation Comments HEMOGLOBIN A1c (test code = 54015) 8.3 % [id number] 00:00:00 Test Item Value Reference Range Interpretation Comments TSH (test code = 2821) 1.1 UIU/ML [id number] 00:00:00 Test Item Value Reference Range Interpretation Comments TSH (test code = 2821) 1.1 UIU/ML [id number] 00:00:00 Test Item Value Reference Range Interpretation Comments TSH (test code = 2821) 1.1 UIU/ML COMPREHENSIVE METABOLIC [id number] 00:00:00 Test Item Value Reference Range Interpretation Comments GLUCOSE (test code = 2217) 196 MG/DL BUN (test code = 2208) 8 MG/DL CREATININE (test code = 2214) 0.48 MG/DL eGFR AMER. (test code 141 ML/MIN/1.73 = 91779) eGFR NON- AMER. (test 122 ML/MIN/1.73 code = 97526) CALCULATED BUN/CREAT (test 17 RATIO code = 2235) SODIUM (test code = 2231) 133 MEQ/L POTASSIUM (test code = 2228) 4.0 MEQ/L CHLORIDE (test code = 2215) 99 MEQ/L CARBON DIOXIDE (test code = 22 MEQ/L 6) CALCIUM (test code = 2209) 9.2 MG/DL PROTEIN, TOTAL (test code = 7.1 G/DL 2228) ALBUMIN (test code = 2201) 4.3 G/DL CALCULATED GLOBULIN (test 2.8 G/DL code = 2240) CALCULATED A/G RATIO (test 1.5 RATIO code = 2234) BILIRUBIN, TOTAL (test code = 0.4 MG/DL 2206) ALKALINE PHOSPHATASE (test 67 U/L code = 2204) SGOT (AST) (test code = 2218) 13 U/L SGPT (ALT) (test code = 2219) 7 U/L COMPREHENSIVE METABOLIC [id number] 00:00:00 Test Item Value Reference Range Interpretation Comments GLUCOSE (test code = 2217) 196 MG/DL BUN (test code = 2208) 8 MG/DL CREATININE (test code = 2214) 0.48 MG/DL eGFR AMER. (test code 141 ML/MIN/1.73 = 00894) eGFR NON- AMER. (test 122 ML/MIN/1.73 code = 81913) CALCULATED BUN/CREAT (test 17 RATIO code = 2235) SODIUM (test code = 2231) 133 MEQ/L POTASSIUM (test code = 2228) 4.0 MEQ/L CHLORIDE (test code = 2215) 99 MEQ/L CARBON DIOXIDE (test code = 22 MEQ/L 220) CALCIUM (test code = 2209) 9.2 MG/DL PROTEIN, TOTAL (test code = 7.1 G/DL 2228) ALBUMIN (test code = 2201) 4.3 G/DL CALCULATED GLOBULIN (test 2.8 G/DL code = 2240) CALCULATED A/G RATIO (test 1.5 RATIO code = 2234) BILIRUBIN, TOTAL (test code = 0.4 MG/DL 2206) ALKALINE PHOSPHATASE (test 67 U/L code = 2204) SGOT (AST) (test code = 2218) 13 U/L SGPT (ALT) (test code = 2219) 7 U/L LIPID [id number] 00:00:00 Test Item Value Reference Range Interpretation Comments CHOLESTEROL (test code = 2210) 289 MG/DL TRIGLYCERIDES (test code = 2232) 1092 MG/DL HDL CHOLESTEROL (test code = 2220) 41 MG/DL CALCULATED LDL CHOL (test code = NOTE MG/DL 2237) LIPID [id number] 00:00:00 Test Item Value Reference Range Interpretation Comments CHOLESTEROL (test code = 2210) 289 MG/DL TRIGLYCERIDES (test code = 2232) 1092 MG/DL HDL CHOLESTEROL (test code = 2220) 41 MG/DL CALCULATED LDL CHOL (test code = NOTE MG/DL 2237)
[2022-01-02] MEDS ORDERED: NA CHLORIDE 0.9% 1,000 ML ONE ×2 (20:39→23:18)
[2022-01-02] MEDS ORDERED: ONDANSETRON 4 MG/2 ML VIAL ONE (20:39)
[2022-01-02] MEDS ORDERED: MORPHINE 4 MG/ML SYR ONE ×2 (20:39→22:01)
[2022-01-02] MEDS ORDERED: DICYCLOMINE HCL 20 MG/2 ML AMP IM ONE (20:39)
[2022-01-02 21:26] LABS: Absolute Lymphocytes (CBC) 2.2 K/uL (0.7-4.9); Hematocrit 40.2 % (36.0-45.0); Lymphocytes % 14.7 % (15.3-44.8); MCV 89.7 fL (80-100); MPV 7.4 fL (7.6-11.3); RBC Red Blood Cell Count 4.48 M/uL (3.86-4.86)
[2022-01-02 21:55] LABS: Albumin 3.3 g/dL (3.4-5.0); Bilirubin Total 0.3 mg/dL (0.2-1.0); Potassium 3.5 mmol/L (3.5-5.1); Protein, Total 7.2 g/dL (6.4-8.2)
--- NOTE | 2022-01-02 22:44 | RAD REPORT ---
EXAM DESCRIPTION: CTAbdomen Pelvis W Contrast - 01/02/2022 10:31 pm CLINICAL HISTORY: abdominal pain, n/v/d COMPARISON: Abdomen Pelvis W Contrast dated 12/16/2019; CT ABD PELVIS W CONTRAST dated 03/14/2014 TECHNIQUE: CT of the abdomen and pelvis was performed with IV contrast. All CT scans are performed using dose optimization technique as appropriate and may include automated exposure control or mA/KV adjustment according to patient size. FINDINGS: Lower chest: Mild circumferential thickening of the distal esophagus. Liver: No acute abnormality or suspicious lesions. Biliary: Cholecystectomy Stomach: No significant focal abnormality. Duodenum: No significant focal abnormality. Pancreas: No significant abnormality. Spleen: No significant abnormality. Adrenal: No suspicious lesions. Kidney/ureter: No hydronephrosis. No renal calculi. Retroperitoneum: No retroperitoneal adenopathy. Vascular: No aneurysm. Bowel: Non perforated acute appendicitis.. No bowel obstruction. Peritoneum: No ascites or free air. Fat containing umbilical hernia. Fat containing ventral hernia. Bladder: Grossly unremarkable. Reproductive: Left adnexal cystic lesion with lobular configuration and measuring 7 cm x 2.9 cm. This is increased in size since 12/16/2019, previously 5.1 x 2.7 cm. Bones: No acute fracture. Other: n/a IMPRESSION: 1. Acute non perforated appendicitis. 2. Mild enlargement of a lobular left adnexal cyst compared with 12/16/2019. Consider gynecologic ref erral.
--- NOTE | 2022-01-02 22:57 | EDPHYS ---
Physician Documentation [facility] Name: Effie Crouch Age: 46 yrs Sex: Female : 1975 Arrival Date: 01/02/2022 Time: 20:09 Bed 20 Private MD: ED Physician Bairon Lujan HPI: 01/02 20:23 This 46 yrs old Female presents to ER via Ambulatory with complaints of pm1 Abdominal Pain, Vomiting/Diarrhea. 20:23 The patient presents with abdominal pain that is diffuse. pm1 20:23 Onset: The symptoms/episode began/occurred 3 day(s) ago. The symptoms do not radiate. pm1 Associated signs and symptoms: Pertinent positives: nausea, vomiting, and diarrhea, Pertinent negatives: chest pain, shortness of breath. The symptoms are described as achy, crampy. Modifying factors: The symptoms are alleviated by nothing, the symptoms are aggravated by nothing. Severity of pain: in the emergency department the pain is actually worse. The patient has not experienced similar symptoms in the past. The patient has not recently seen a physician. 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 - Social history:: Smoking status: Patient reports the use of cigarette tobacco products, smokes one-half pack cigarettes per day. ROS: 20:23 Constitutional: Negative for fever, chills, and weight loss, Cardiovascular: Negative pm1 for chest pain, palpitations, and edema, Respiratory: Negative for shortness of breath, cough, wheezing, and pleuritic chest pain. 20:23 Back: Negative for injury and pain, : Negative for injury, bleeding, discharge, and swelling, MS/Extremity: Negative for injury and deformity, Skin: Negative for injury, rash, and discoloration, Neuro: Negative for headache, weakness, numbness, tingling, and seizure. 20:23 Abdomen/GI: Positive for abdominal pain, nausea, vomiting, and diarrhea, of the abdomen diffusely. 20:23 All other systems are negative. Exam: 20:23 Constitutional: This is a well developed, well nourished patient who is awake, alert, pm1 and in no acute distress. Head/Face: Normocephalic, atraumatic. 20:23 Back: No spinal tenderness. No costovertebral tenderness. Full range of motion. Skin: Warm, dry with normal turgor. Normal color with no rashes, no lesions, and no evidence of cellulitis. MS/ Extremity: Pulses equal, no cyanosis. Neurovascular intact. Full, normal range of motion. 20:23 Eyes: Exam is negative for acute changes, Periorbital structures: no acute changes, Conjunctiva: no acute changes, no injection. 20:23 Cardiovascular: Exam negative for acute changes, Rate: normal, Rhythm: regular, Pulses: no pulse deficits are appreciated. 20:23 Respiratory: Exam negative for acute changes, respiratory distress, shortness of breath, Breath sounds: are clear throughout. 20:23 Abdomen/GI: Inspection: obese Palpation: soft, in all quadrants, moderate abdominal tenderness, in the right lower quadrant, rebound tenderness, is not appreciated. 20:23 Neuro: Exam negative for acute changes, Orientation: is normal, Mentation: is normal, Motor: is normal, moves all fours. Vital Signs: 20:20 BP 167 / 75; Pulse 99; Resp 20; Temp 98.4; Pulse Ox 100% ; Weight 74.39 kg; Height 5 kb3 ft. 2 in. (157.48 cm); Pain 10/10; 20:20 BP 167 / 75; Pulse 99; Resp 20; Pulse Ox 100% on R/A; ph 21:00 BP 140 / 69; Pulse 79; Resp 17 S; Pulse Ox 100% on R/A; ha1 21:50 BP 129 / 80; Pulse 83; Resp 16 S; Pulse Ox 100% on R/A; ha1 22:50 BP 145 / 91; Pulse 80; Resp 17 S; Pulse Ox 100% on R/A; ha1 20:20 Body Mass Index 30.00 (74.39 kg, 157.48 cm) kb3 MDM: 20:19 Patient medically screened. pm1 22:47 Data reviewed: vital signs. Data interpreted: Pulse oximetry: on room air is 100 %. pm1 Interpretation: normal. Counseling: I had a detailed discussion with the patient and/or guardian regarding: the historical points, exam findings, and any diagnostic results supporting the discharge/admit diagnosis, lab results, radiology results, the need for further work-up and treatment in the hospital. 22:54 Physician consultation: Heriberto Gay MD was called at 22:55, was contacted at 22:55, pm1 regarding consult, patient's condition, and will see patient tomorrow, would like medications started, Zosyn, NPO, admit to the hospitalist. 23:00 Physician consultation: Papi LANDON was called at 23:00, was contacted at 23:00, pm1 regarding admission, patient's condition, admit to Dr Stallings. 01/02 20:23 Order name: CBC with Diff; Complete Time: 21:35 pm1 01/02 20:23 Order name: CMP; Complete Time: 21:56 pm1 01/02 20:23 Order name: Lipase; Complete Time: 21:56 pm1 01/02 20:23 Order name: CT Abd/Pelvis - IV Contrast Only; Complete Time: 22:46 pm1 01/02 21:35 Order name: Flu; Complete Time: 22:40 pm1 01/02 22:52 Order name: SARS RAPID; Complete Time: 00:30 pm1 01/02 20:23 Order name: IV Saline Lock; Complete Time: 21:11 pm1 01/02 20:23 Order name: Labs collected and sent; Complete Time: 21:11 pm1 01/02 22:52 Order name: NPO; Complete Time: 03:18 pm1 Administered Medications: 20:45 Drug: NS 0.9% 1000 ml Route: IV; Rate: 1 bolus; Site: right antecubital; ph 20:45 Drug: Zofran (Ondansetron) 4 mg Route: IVP; Site: right antecubital; ph 21:00 Follow up: Response: No adverse reaction ha1 20:45 Drug: morphine 4 mg Route: IVP; Infused Over: 4 mins; Site: right antecubital; ph 21:00 Follow up: Response: No adverse reaction; Pain is decreased; RASS: Alert and Calm (0) ha1 20:50 Drug: Bentyl (dicyclomine) 20 mg Route: IM; Site: right vastus lateralis; ph 21:10 Follow up: Response: No adverse reaction ha1 22:04 Drug: morphine 4 mg Route: IVP; Infused Over: 4 mins; Site: right antecubital; ha1 23:36 Drug: Zosyn (piperacillin-tazobactam) 3.375 grams Route: IVPB; Infused Over: 60 mins; ha1 Site: right antecubital; 01/03 01:17 Follow up: Response: No adverse reaction; IV Status: Completed infusion; IV Intake: ha1 100ml 01/02 23:36 Drug: NS 0.9% 1000 ml Route: IV; Rate: 100 ml/hr; Site: right antecubital; ha1 Disposition Summary: 01/02/22 22:57 Hospitalization Ordered Hospitalization Status: Inpatient Admission pm1 Provider: Josh Stallings pm1 Location: Telemetry/MedSurg (Inpatient) pm1 Condition: Stable pm1 Problem: new pm1 Symptoms: have improved pm1 Bed/Room Type: Standard pm1 Room Assignment: [facility](01/03/22 00:49) Diagnosis - Unspecified acute appendicitis pm1 Forms: - Medication Reconciliation Form pm1 - SBAR form pm1 Signatures: Dispatcher [employer] EDTaniya Bradley RN RN ph Garcia, Cindy, RN RN Itz Mckeon, YONG TRAVEL AGENCY MANAGER pm1 Jessica Ceja RN RN [facility] Lachelle Kenney RN RN kb3 Corrections: (The following items were deleted from the chart) : 20:21 Home Meds: Iron CR Oral; kb3 kb3 01/03 00:49 01/02 22:57 pm1 cg
--- NOTE | 2022-01-02 22:57 | ER ---
Nurse's Notes [facility] Name: Effie Crouch Age: 46 yrs Sex: Female : 1975 Arrival Date: 01/02/2022 Time: 20:09 Bed 20 Private MD: Diagnosis: Unspecified acute appendicitis Presentation: 01/02 20:20 Chief complaint: Patient states: Pt reports generalized abdominal cramps with N/V/D x3 kb3 days that worsened today. Coronavirus screen: Vaccine status: Patient reports receiving the 2nd dose of the covid vaccine. Client denies travel out of the [place] in the last 14 days. Ebola Screen: Patient negative for fever greater than or equal to 101.5 degrees Fahrenheit, and additional compatible Ebola Virus Disease symptoms Patient denies exposure to infectious person. Patient denies travel to an Ebola-affected area in the 21 days before illness onset. Initial Sepsis Screen: Does the patient meet any 2 criteria? No. Patient's initial sepsis screen is negative. Does the patient have a suspected source of infection? No. Patient's initial sepsis screen is negative. Risk Assessment: Do you want to hurt yourself or someone else? Patient reports no desire to harm self or others. Onset of symptoms was December 30, 2021. 20:20 Method Of Arrival: Ambulatory kb3 20:20 Acuity: MARNI 3 kb3 Triage Assessment: 20:21 General: Appears uncomfortable, Behavior is calm, cooperative. Pain: Complains of pain kb3 in abdomen Pain does not radiate. Pain currently is 10 out of 10 on a pain scale. Quality of pain is described as crampy, Pain began 2-3 days ago. Is continuous. GI: Reports lower abdominal pain, upper abdominal pain, diarrhea, nausea, vomiting. 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 - Social history:: Smoking status: Patient reports the use of cigarette tobacco products, smokes one-half pack cigarettes per day. Screenin:12 Abuse screen: Denies threats or abuse. Denies injuries from another. Nutritional ha1 screening: No deficits noted. Tuberculosis screening: No symptoms or risk factors identified. Fall Risk None identified. Assessment: 20:15 General: Appears uncomfortable, Behavior is calm, cooperative. Pain: Complains of pain ph in abdomen Pain does not radiate. Pain at worst was 10 out of 10 on a pain scale. Neuro: Level of Consciousness is awake, alert, obeys commands, Oriented to person, place, time, situation. Cardiovascular: Patient's skin is warm and dry. Respiratory: Airway is patent Trachea midline Respiratory effort is even, unlabored, Respiratory pattern is regular, symmetrical. GI: Bowel sounds present X 4 quads. Abd is soft and non tender X 4 quads. : No signs and/or symptoms were reported regarding the genitourinary system. Musculoskeletal: Circulation, motion, and sensation intact. Range of motion: intact in all extremities. 21:00 Reassessment: Patient and/or family updated on plan of care and expected duration. Pain ha1 level reassessed. Patient is alert, oriented x 3, equal unlabored respirations, skin warm/dry/pink. pain 2/10 Patient states feeling better. Patient states symptoms have improved. 22:00 Reassessment: Patient and/or family updated on plan of care and expected duration. Pain ha1 level reassessed. Patient is alert, oriented x 3, equal unlabored respirations, skin warm/dry/pink. pain 10/10. 22:50 Reassessment: Patient and/or family updated on plan of care and expected duration. Pain ha1 level reassessed. Patient is alert, oriented x 3, equal unlabored respirations, skin warm/dry/pink. Vital Signs: 20:20 BP 167 / 75; Pulse 99; Resp 20; Temp 98.4; Pulse Ox 100% ; Weight 74.39 kg; Height 5 kb3 ft. 2 in. (157.48 cm); Pain 10/10; 20:20 BP 167 / 75; Pulse 99; Resp 20; Pulse Ox 100% on R/A; ph 21:00 BP 140 / 69; Pulse 79; Resp 17 S; Pulse Ox 100% on R/A; ha1 21:50 BP 129 / 80; Pulse 83; Resp 16 S; Pulse Ox 100% on R/A; ha1 22:50 BP 145 / 91; Pulse 80; Resp 17 S; Pulse Ox 100% on R/A; ha1 20:20 Body Mass Index 30.00 (74.39 kg, 157.48 cm) kb3 ED Course: 20:09 Patient arrived in ED. mr 20:10 Patient has correct armband on for positive identification. Placed in gown. Bed in low ha1 position. Call light in reach. Side rails up X 1. 20:15 Itz Mckeon NP is PHCP. pm1 20:15 Bairon Lujan MD is Attending Physician. pm1 20:20 Inserted saline lock: 20 gauge antecubital area, using aseptic technique. Blood ha1 collected. 20:21 Triage completed. kb3 20:21 Arm band placed on right wrist. Patient placed in an exam room, on a stretcher. kb3 20:32 Taniya Rodríguez, RN is Primary Nurse. ph 21:11 CBC with Diff Sent. ph 21:11 CMP Sent. ph 21:11 Lipase Sent. ph 22:33 CT Abd/Pelvis - IV Contrast Only In Process Unspecified. EDMS 22:56 Josh Stallings MD is Hospitalizing Provider. pm1 01/03 03:55 No provider procedures requiring assistance completed. Patient admitted, IV remains in ha1 place. Administered Medications: 01/02 20:45 Drug: NS 0.9% 1000 ml Route: IV; Rate: 1 bolus; Site: right antecubital; ph 20:45 Drug: Zofran (Ondansetron) 4 mg Route: IVP; Site: right antecubital; ph 21:00 Follow up: Response: No adverse reaction ha1 20:45 Drug: morphine 4 mg Route: IVP; Infused Over: 4 mins; Site: right antecubital; ph 21:00 Follow up: Response: No adverse reaction; Pain is decreased; RASS: Alert and Calm (0) ha1 20:50 Drug: Bentyl (dicyclomine) 20 mg Route: IM; Site: right vastus lateralis; ph 21:10 Follow up: Response: No adverse reaction ha1 22:04 Drug: morphine 4 mg Route: IVP; Infused Over: 4 mins; Site: right antecubital; ha1 23:36 Drug: Zosyn (piperacillin-tazobactam) 3.375 grams Route: IVPB; Infused Over: 60 mins; ha1 Site: right antecubital; 01/03 01:17 Follow up: Response: No adverse reaction; IV Status: Completed infusion; IV Intake: ha1 100ml 01/02 23:36 Drug: NS 0.9% 1000 ml Route: IV; Rate: 100 ml/hr; Site: right antecubital; ha1 Medication: 01/03 03:57 VIS not applicable for this client. ha1 Intake: 01:17 IV: 100ml; Total: 100ml. ha1 Outcome: 01/02 22:57 Decision to Hospitalize by Provider. pm1 01/03 03:56 Discharged to home via wheelchair, with family. ha1 Condition: stable Instructed on the need for admit, Demonstrated understanding of instructions. 03:57 Patient left the ED. ha1 Signatures: Dispatcher [employer] Deirdre Pak Taniya Rodríguez RN RN Itz Cheng, YONG PHLEBOTOMY PROGRAM COORDINATOR pm1 Jessica Ceja RN RN ha1 Lachelle Kenney RN RN kb3 Corrections: (The following items were deleted from the chart) 01/02 20:22 20:21 Home Meds: Iron CR Oral; kb3 kb3 22:06 22:05 Response: No adverse reaction; Pain is decreased; RASS: Alert and Calm (0) ha1 ha1 22:08 21:13 Reassessment: Patient and/or family updated on plan of care and expected ha1 duration. Pain level reassessed. Patient is alert, oriented x 3, equal unlabored respirations, skin warm/dry/pink. ph
[2022-01-02] MEDS ORDERED: NA CHLORIDE 0.9% 100 ML IV ONE (23:18)
[2022-01-02] MEDS ORDERED: PIPERACIL/TAZO 3.375 GM VIAL IV ONE (23:18)
--- NOTE | 2022-01-02 23:49 | P.HP ---
Certification for Inpatient Patient admitted to: Observation With expected LOS: <2 Midnights Patient will require the following post-hospital care: None Practitioner: I am a practitioner with admitting privileges, knowledge of patient current condition, hospital course, and medical plan of care. Services: Services provided to patient in accordance with Admission requirements found in Title 42 Section 412.3 of the Code of Federal Regulations <Papi Ovalle - Last Filed: 01/02/22 23:47> Patient History Date of Service: 01/02/22 Reason for admission: Appendicitis History of Present Illness: 46-year-old female with history of insulin-dependent diabetes, hypertension presents to the emergency department for abdominal pain, she reports her pain began 2 days ago initially generalized but now localizing to the right lower quadrant. She was evaluated in the emergency department her labs were significant for leukocytosis with a white blood cell count of 14.9 CT demonstrates acute nonperforated appendicitis. Mild enlargement of lobular left adnexal cyst compared to 12/16/2019 consider gynecologic referral. General surgery was contacted by ED provider recommends admission to the hospital service with plan for appendectomy tomorrow. - Past Medical/Surgical History Diabetic: Yes -: Diabetes mellitus type 2insulin-dependent -: anemia -: Hypertension -: Cholecystectomy Psychosocial/ Personal History: Lives at home with family - Family History Mother -: Cancer - Social History Smoking Status: Current every day smoker Counseled patient to stop smoking for: less than 10 minutes Smoking therapy provided: No (Patient declined) Alcohol use: Yes CD- Drugs: No Caffeine use: No Place of Residence: Home <Papi Ovalle - Last Filed: 01/02/22 23:47> Date of Service: 01/03/22 <Josh Stallings - Last Filed: 01/03/22 18:48> Allergies No Known Drug Allergies Allergy (Verified 11/06/16 23:17) Unknown No Allergy (Uncoded 11/07/16 00:26) Unknown No Known Allergies Allergy (Uncoded 03/11/17 17:48) Unknown Home Medications: RX: Insulin 70/30 NPH/Reg Human [Novolin 70/30*] 45 units SQ BID 11/06/16 RX: Metformin HCl [Glucophage] 1 tab PO BID 11/06/16 RX: Ferrous Gluconate [Fergon] 240 mg PO BID #60 tablet 11/07/16 Review of Systems 10-point ROS is otherwise unremarkable Gastrointestinal: Nausea, Vomiting, Abdominal Pain, Diarrhea <Papi Ovalle - Last Filed: 01/02/22 23:47> Physical Examination - Physical Exam General: Alert, In no apparent distress, Oriented x3 HEENT: Atraumatic, PERRLA, Mucous membr. moist/pink, EOMI, Sclerae nonicteric Neck: Supple, 2+ carotid pulse no bruit, No LAD, Without JVD or thyroid abnormality Respiratory: Clear to auscultation bilaterally, Normal air movement Cardiovascular: Regular rate/rhythm, Normal S1 S2 Gastrointestinal: Normal bowel sounds, No rebound, No guarding, Tenderness (Mild right lower quadrant) Musculoskeletal: No tenderness Integumentary: No rashes Neurological: Normal speech, Normal strength at 5/5 x4 extr, Normal tone, Normal affect - Studies Laboratory Data (last 24 hrs) 01/02/22 20:55: Sodium 139, Potassium 3.5, BUN 9, Creatinine 0.69, Glucose 90, Total Bilirubin 0.3, AST 9 L, ALT 23, Alkaline Phosphatase 88, Lipase 70 L 01/02/22 20:55: WBC 14.90 H, Hgb 13.4, Hct 40.2, Plt Count 280 Microbiology Data (last 24 hrs): 01/02/22 21:55 Nasopharnyx Influenza Type A Antigen Screen - Final 01/02/22 21:55 Nasopharnyx Influenza Type B Antigen Screen - Final <Papi Ovalle - Last Filed: 01/02/22 23:47> - Studies Laboratory Data (last 24 hrs) 01/03/22 05:03: WBC 14.90 H, Hgb 12.7, Hct 37.9, Plt Count 249 01/03/22 05:03: Sodium 136, Potassium 3.7, BUN 8, Creatinine 0.53 L, Glucose 144 H 01/02/22 20:55: Sodium 139, Potassium 3.5, BUN 9, Creatinine 0.69, Glucose 90, Total Bilirubin 0.3, AST 9 L, ALT 23, Alkaline Phosphatase 88, Lipase 70 L 01/02/22 20:55: WBC 14.90 H, Hgb 13.4, Hct 40.2, Plt Count 280 Microbiology Data (last 24 hrs): 01/02/22 21:55 Nasopharnyx Influenza Type A Antigen Screen - Final 01/02/22 21:55 Nasopharnyx Influenza Type B Antigen Screen - Final <Josh Stallings - Last Filed: 01/03/22 18:48> Assessment and Plan - Plan Assessment: Acute uncomplicated appendicitis Diabetes mellitus type 2insulin-dependent Hypertension Plan: Acute uncomplicated appendicitis: N.p.o., IVF, IV antibiotics, as needed pain medications and antiemetics, surgical consult in place. Diabetes mellitus type 2insulin-dependent: Every 6 hours Accu-Chek, mild sliding scale insulin. Patient takes 70/30 insulin 45 units twice daily at home last A1c 3 months ago 7.4. Hypertension: Continue home medications when appropriate. DVT PPX: SCD Code status: Full Discharge Plan: Home Plan to discharge in: 24 Hours - Advance Directives Does patient have a Living Will: No Does patient have a Durable POA for Healthcare: No - Code Status/Comfort Care Code Status Assessed: Yes (Full code) Critical Care: No Time Spent Managing Pts Care (In Minutes): 55 <Papi Ovalle - Last Filed: 01/02/22 23:47> Physician Review: Patient Assessed, Agree with Above Assessment and Plan <Josh Stallings - Last Filed: 01/03/22 18:48>
[2022-01-03 00:29] LABS: SARS-CoV-2 Antigen Rapid Res Negative (Negative)
[2022-01-03] MEDS ORDERED: ONDANSETRON 4 MG/2 ML VIAL IV PRN (02:09)
[2022-01-03 04:30] VITALS: BMI 30.9
[2022-01-03 05:18] LABS: Absolute Lymphocytes (CBC) 1.6 K/uL (0.7-4.9); Hematocrit 37.9 % (36.0-45.0); Lymphocytes % 10.5 % (15.3-44.8); MCV 89.8 fL (80-100); MPV 7.3 fL (7.6-11.3); RBC Red Blood Cell Count 4.22 M/uL (3.86-4.86)
[2022-01-03 05:28] LABS: Potassium 3.7 mmol/L (3.5-5.1)
[2022-01-03] MEDS: MORPHINE 2 MG/ML SYR IV PRN ×3 (05:38→21:21)
[2022-01-03] MEDS: INSULIN -REGULAR HUMAN 50 UNIT/0.5 ML ML SQ SCH ×4 (07:30→21:16)
[2022-01-03] MEDS: PIPER TAZO 3.375 GM in NA CHLORIDE 0.9% 100 ML IV SCH ×2 (08:00→16:11)
[2022-01-03] MEDS ORDERED: NA CHLORIDE 0.9% 1,000 ML ONE (11:28)
[2022-01-03] MEDS ORDERED: MIDAZOLAM HCL 2 MG/2 ML INJ ONE (12:21)
[2022-01-03] MEDS ORDERED: FENTANYL CITR 100 MCG/2 ML ONE (12:26)
[2022-01-03] MEDS ORDERED: propofoL 200 MG/20 ML VIAL IV ONE (12:27)
[2022-01-03] MEDS ORDERED: ROCURONIUM 50 MG/5 ML VIAL IV ONE (12:28)
[2022-01-03] MEDS ORDERED: ONDANSETRON 4 MG/2 ML VIAL ONE ×2 (12:32→14:09)
[2022-01-03] MEDS ORDERED: LIDOCAINE 2% MPF 5 ML VIAL ONE (12:32)
[2022-01-03] MEDS ORDERED: KETOROLAC 30 MG/ML INJ ONE (13:22)
[2022-01-03] MEDS ORDERED: GLYCOPYRROLATE 0.2 MG/ML SYR ONE (13:23)
[2022-01-03] MEDS ORDERED: NEOSTIGMINE 1 MG/ML -5 ML ONE (13:23)
--- NOTE | 2022-01-03 13:24 | P.BOP ---
Preoperative diagnosis: acute appendicitis Postoperative diagnosis: same, extensive intrabdominal adhesions. Primary procedure: 1. Laparoscopic appendectomy Secondary procedure: 2. Laparoscopic lysis of adhesions Advertising Account Executive: ROXANA WU (HYDROCHLORIC AREA SUPERVISOR) Estimated blood loss: <10cc Specimen: golden Findings: appendicitis, extensive intrabdominal adhesions. Anesthesia: General (.) Complications: None Transferred to: Recovery Room Condition: Good
[2022-01-03] MEDS ORDERED: HYDROCODONE/APAP 5/325 MG TAB PO PRN (13:29)
--- NOTE | 2022-01-03 17:32 | CON ---
Date of Consultation: 01/03/2022 Reason For Service: Acute appendicitis. History Of Present Illness: This is a case of a female, who comes to us with abdominal pain, nausea, and vomiting for about 3 to 4 days of duration. This morning, she was getting worse, so she decided to come to the ER and diagnosed with acute appendicitis. She denies any dysuria, hematuria, hematoc hezia, or melena. She denies any recent traveling out of the country. Denies any family member sick at home. Review of Systems: Positive for nausea, vomiting, abdominal pain, abdominal cramps. Ten points, otherwise, unremarkable . Allergies: NONE. Past Medical History: Anemia, insulin-dependent diabetes, hypertension. Past Surgical History: Include cholecystectomy, , and hysterectomy. Medications: Include Humulin, metformin, and lisinopril. Social History: She does not smoke. She does not drink alcohol. Physical Examination: General: Patient is awake and alert. HEENT: Pupils are equal and reactive. Anicteric. Neck: Supple. Chest: Clear. Abdomen: Soft and depressible. There is right lower quadrant tenderness with psoas sign positive. Breasts: Deferred. Rectal: Deferred. Pelvic: Deferred. Extremities: Good capillary refill. Laboratory Data: Blood work was reviewed with the patient. CAT scan also reviewed showing evidence of appendicitis. She also understands she had some other pathology especially in the left ovary. Maikel chino was advised the importance of following up with her fishing gear mechanic and also some upper ventral hernia s that may not be able to be repaired at this moment, but it may require her attention in the future. She understood. Assessment: Acute appendicitis. Plan: Laparoscopic possible open appendectomy with benefits, alternatives, and risks including, but not limited to, infection, bleeding, damage to adjacent structures, anesthesia complications, AL, and even . She also understands this may not relieve any symptoms. She may need more than one sierra gical intervention. She understood, signed a consent. ELIDA/HEAVEN Voice ID: [id number] Report ID: [id number]
--- NOTE | 2022-01-03 18:55 | P.PN ---
Subjective Date of Service: 01/03/22 Chief Complaint: Appendicitis No acute events overnight. She reports RLQ pain, which has improved with her current pain regimen. Plan is for laparoscopic appendectomy today. Review of Systems 10-point ROS is otherwise unremarkable Gastrointestinal: Abdominal Pain Physical Examination - Vital Signs Temperature: 97.3 F Blood Pressure: 135/68 Pulse: 95 Respirations: 18 Pulse Ox (%): 95 - Physical Exam General: Alert, In no apparent distress, Oriented x3 HEENT: Atraumatic, PERRLA, Mucous membr. moist/pink, EOMI, Sclerae nonicteric Neck: Supple, JVD not distended Respiratory: Clear to auscultation bilaterally, Normal air movement Cardiovascular: No edema, Regular rate/rhythm, Normal S1 S2 Capillary refill: <2 Seconds Gastrointestinal: Normal bowel sounds, Soft and benign, Non-distended, No rebound, No guarding, Tenderness (RLQ) Musculoskeletal: No clubbing Integumentary: No rashes Neurological: Normal speech, Cranial nerves 3-12 intact, Normal affect - Studies Laboratory Data (last 24 hrs) 01/03/22 05:03: WBC 14.90 H, Hgb 12.7, Hct 37.9, Plt Count 249 01/03/22 05:03: Sodium 136, Potassium 3.7, BUN 8, Creatinine 0.53 L, Glucose 144 H 01/02/22 20:55: Sodium 139, Potassium 3.5, BUN 9, Creatinine 0.69, Glucose 90, Total Bilirubin 0.3, AST 9 L, ALT 23, Alkaline Phosphatase 88, Lipase 70 L 01/02/22 20:55: WBC 14.90 H, Hgb 13.4, Hct 40.2, Plt Count 280 Microbiology Data (last 24 hrs): 01/02/22 21:55 Nasopharnyx Influenza Type A Antigen Screen - Final 01/02/22 21:55 Nasopharnyx Influenza Type B Antigen Screen - Final Assessment And Plan - Plan # Acute Uncomplicated Appendicitis - Admitted to Medicine - CT abdomen/pelvis = "1. Acute non perforated appendicitis. 2. Mild enlargement of a lobular left adnexal cyst compared with 12/16/2019. Consider gynecologic referral." - General Surgery consulted and spoke with Dr. Gay - recommendations appreciated - Plan for laparoscopic appendectomy today - Continue Piperacillin-Tazobactam 3.375 g IV q6hr - Lactated Ringers' at 100 mL/hr - PRN morphine, ondansetron - NPO # Type II Diabetes Mellitus - Correction scale insulin # Hypertension - Hold home meds while NPO # Left Adnexal Cyst - Follow-up with Scrap Crusher # Distal Circumferential Esophageal Thickening - Follow-up with Gastroenterology Josh Stallings M.D.
[2022-01-03 23:30] VITALS: O2SAT 98
[2022-01-04] MEDS: PIPER TAZO 3.375 GM in NA CHLORIDE 0.9% 100 ML IV SCH ×2 (01:11→09:00)
--- NOTE | 2022-01-04 01:21 | OP ---
Date of Procedure: 01/03/2022 Surgeon: Heriberto Gay MD Gear Tooth Grinding Machine Operator: ALEYDA Agrawal. Preoperative Diagnosis: Acute appendicitis. Postoperative Diagnoses: Acute appendicitis plus extensive intraabdominal adhesions. Procedures: Laparoscopic appendectomy and laparoscopic lysis of adhesions. Estimated Blood Loss: Less than 10 cc. Specimens: Appendix. Findings: Acute appendicitis. The patient has extensive intraabdominal adhesions. The patient had multiple surgeries in the past. The patient has inflamed erythematous appendix. Anesthesia: General plus local. Indications: This is the case of a female who comes to us with acute appendicitis. She had extensiv e intraabdominal surgeries with hysterectomy and also through midline incisions. The benef its, alternatives, and risks of laparoscopic and possible open appendectomy were fully explained, whi ch include, but not limited to infection, bleeding, damage to adjacent structures, anesthesia complic ation, negative appendix, OH, and even . She also understands this may not relieve the symptoms and she may need more than one surgical intervention. She understood and signed a consent. Procedure In Detail: The patient was brought to the operating room, placed in supine position, and a nesthesia was achieved without complication. Abdominal area was prepped and draped in a sterile fash ion. Marcaine 0.5% was injected for local anesthetic, followed by sharp incision of the skin in the supraumbilical region since the patient has extensive infraumbilical scar tissue. Incision was jabier ed down to fascia, which was opened under direct vision. Peritoneum was encountered and opened under direct vision. Vicryl #1 was placed inside the fascia. Sis trocar was carefully introduced. Pn eumoperitoneum was obtained. I placed 2 more trocars, 1 in the suprapubic area and 1 in the left low er quadrant. We had to be careful with the location since patient had so many adhesions that we had to clear up those areas with the help of the Harmonic Scalpel and do lysis of adhesions to be able to go through these extensive scars. When we did that, then we were able to localize the area of the a ppendix. We noticed the appendix to be asymmetrical in shape and color. Since we have the LigaSure already open and we had multiple adhesions near the appendix, we also took care of adhesions and also the mesoappendix. The appendix was removed at the base of the appendix with Endo-AALIYAH nonvascular. Further hemostasis was obtained with the help of 5 mm hemoclips. Profuse irrigation of the area was done and the appendix removed from abdominal cavity using an Endo Catch through the umbilical incisio n. The area was inspected once again and no bowel leak and no bleeding. Since she had all that infl ammation and all that inflammation in the appendix and would require a lot of fluid to clean that are a, I will have a JACIEL drain in that area exiting through one of the trocar sites. At that moment, I pr oceeded to remove the trocars under direct vision, deflated pneumoperitoneum, closed the fascia with #1 Vicryl, irrigated subcutaneous tissue and closed that with 3-0 chromic and then the skin with stap les. Sponge count and instrument counts were correct. Patient tolerated the procedure well. Matthias marrero was sent to recovery room in stable condition. JACIEL was connected to bulb suction. ELIDA/HEAVEN Voice ID: [id number] Report ID: [id number]
[2022-01-04 03:39] LABS: Absolute Lymphocytes (CBC) 1.4 K/uL (0.7-4.9); Hematocrit 36.2 % (36.0-45.0); MCV 89.9 fL (80-100); MPV 7.6 fL (7.6-11.3); RBC Red Blood Cell Count 4.03 M/uL (3.86-4.86)
[2022-01-04 03:59] LABS: Potassium 4.2 mmol/L (3.5-5.1)
--- NOTE | 2022-01-04 08:13 | P.DS ---
Admission Date: 01/03/22 Discharge Date: 01/04/22 Disposition: ROUTINE DISCHARGE Discharge Condition: GOOD Reason for Admission: Appendicitis Consultations: 1. General Surgery Procedures: - 01/03/2022: Laparoscopic Appendectomy with Laparoscopic Lysis of Adhesions Hospital Course: DIAGNOSES: # Acute Uncomplicated Appendicitis # Type II Diabetes Mellitus # Hypertension # Left Adnexal Cyst # Distal Circumferential Esophageal Thickening HOSPITAL COURSE: Ms. Effie Crouch is a pleasant 46 year old female with a past medical history significant for type II diabetes mellitus and hypertension who was admitted to [facility] on 01/03/2022 for acute appendicitis. She was admitted to Medicine service. General Surgery was consulted and she was evaluated by Dr. Gay. On 01/03/2022, she underwent laparoscopic appendectomy and tolerated the procedure well. A JACIEL drain was placed and has had minimal output. Post-operatively, her pain has been well-controlled and has tolerated a diet, without any issues. Dr. Gay has cleared her for discharge with 5 days of amoxicillin-clavulanate. He recommended that we leave the JACIEL drain in and he will remove it in his clinic in about 1 week. On 01/04/2022, she was seen on morning rounds and deemed medically stable for discharge. She was discharged with instructions to schedule follow-up appointments with her PCP, with General Surgery (Dr. Gay), with Gastroenterology (Dr. Culp), and with [facility]ail[facility]. She was provided a prescription for amoxicillin-clavulanate. She was given the opportunity to ask questions and reported no further questions. Furthermore, all questions were answered to the best of my ability. A copy of this discharge summary will be sent to the above providers to facilitate continuity of care. Today, I personally spent 20 minutes on her case, of which greater than 50% of the time was spent in patient education, counseling, and coordination of care as described above. - Physical Exam General: Alert, In no apparent distress, Oriented x3 HEENT: Atraumatic, PERRLA, Mucous membr. moist/pink, EOMI, Sclerae nonicteric Neck: Supple, JVD not distended Respiratory: Clear to auscultation bilaterally, Normal air movement Cardiovascular: No edema, Regular rate/rhythm, Normal S1 S2 Capillary refill: <2 Seconds Gastrointestinal: Normal bowel sounds, Soft and benign, Non-distended, No rebound, No guarding, No tenderness, Abdominal JACIEL drain with ~5 mL of serosangionous output Musculoskeletal: No clubbing Integumentary: No rashes Neurological: Normal speech, Cranial nerves 3-12 intact, Normal affect Vital Signs/Physical Exam: Temp Pulse Resp BP Pulse Ox 97.1 F 89 18 137/63 97 01/04/22 04:00 01/04/22 04:00 01/04/22 04:00 01/04/22 04:00 01/04/22 04:00 Laboratory Data at Discharge: WBC 12.50 K/uL (4.3-10.9) H 01/04/22 03:11 Hgb 12.2 g/dL (12.0-15.0) 01/04/22 03:11 Hct 36.2 % (36.0-45.0) 01/04/22 03:11 Plt Count 291 K/uL (152-406) 01/04/22 03:11 Sodium 136 mmol/L (136-145) 01/04/22 03:11 Potassium 4.2 mmol/L (3.5-5.1) D 01/04/22 03:11 BUN 7 mg/dL (7-18) 01/04/22 03:11 Creatinine 0.76 mg/dL (0.55-1.3) 01/04/22 03:11 Glucose 258 mg/dL (74-106) H 01/04/22 03:11 Total Bilirubin 0.3 mg/dL (0.2-1.0) 01/02/22 20:55 AST 9 U/L (15-37) L 01/02/22 20:55 ALT 23 U/L (12-78) 01/02/22 20:55 Alkaline Phosphatase 88 U/L (45-117) 01/02/22 20:55 Lipase 70 U/L (73-393) L 01/02/22 20:55 Home Medications: Insulin 70/30 NPH/Reg Human [Novolin 70/30*] 45 units SQ BID 11/06/16 Metformin HCl [Glucophage] 1 tab PO BID 11/06/16 Ferrous Gluconate [Fergon] 240 mg PO BID #60 tablet 11/07/16 Amox/Clavulanate [Augmentin 875-125 Tab] 875 mg PO BID 5 Days #10 tab 01/04/22 New Medications: Amox/Clavulanate [Augmentin 875-125 Tab] 875 mg PO BID 5 Days #10 tab Physician Discharge Instructions: 1. Please call and schedule a follow-up appointment with your PCP ([facility]) in 3-5 days 2. Please call and schedule a follow-up appointment with General Surgery (Dr. Gay) in 5-7 days - He will discuss removal of your abdominal drain at this appointment 3. Please call and schedule a follow-up appointment with Gastroenterology (Dr. Culp) in 1-2 weeks 4. Please call and schedule a follow-up appointment with your Court [facility]ail[facility] provider in 1-2 weeks Diet: ADA Activity: Ad alicia Followup: Heriberto Gay MD [ACTIVE - CAN ADMIT] - 1 Week (Call to make appointment in 5- 7 days.) NONE,NONE [Primary Care Provider] - 1 Week (Call to make appointment in 3-5 days) Adama Culp MD [ACTIVE - CAN ADMIT] - Time spent managing pt's care (in minutes): 20
[2022-01-04 09:55] VITALS: BP 148/77; TEMP 98.2
[2022-01-04] MEDS: INSULIN -REGULAR HUMAN 50 UNIT/0.5 ML ML SQ SCH (10:00)
== END 2022-01-04 11:35 | disposition home or self-care (01) | DRG 337 ==
LOC: ER 20:05 → ERHOLD 23:01 → 2ND 01-03 02:25 → OBSVTOIN 01-03 13:26
PROVIDERS: ADMIT Internal Medicine; ATTEND Internal Medicine
PROC: 0DTJ4ZZ Resection of Appendix, Percutaneous Endoscopic Approach (ICD-10-PCS; 2022-01-03)
PROC: 0DNW4ZZ Release Peritoneum, Percutaneous Endoscopic Approach (ICD-10-PCS; principal; 2022-01-03 12:30)
DX: K35.80 Unspecified acute appendicitis (principal); I10 Essential (primary) hypertension; E11.9 Type 2 diabetes mellitus without complications; K66.0 Peritoneal adhesions (postprocedural) (postinfection); N83.8 Other noninflammatory disorders of ovary, fallopian tube and broad ligament; F17.210 Nicotine dependence, cigarettes, uncomplicated; Z79.4 Long term (current) use of insulin; Z79.84 Long term (current) use of oral hypoglycemic drugs; Z90.49 Acquired absence of other specified parts of digestive tract; Z79.899 Other long term (current) drug therapy; Z90.710 Acquired absence of both cervix and uterus; Z20.822 Contact with and (suspected) exposure to COVID-19
CPT/HCPCS: 36415; 74177; 80048; 80053; 82947; 83036; 83690; 85025; 87804; 87811; 88304; 94010; 96365; 96366; 96372; 96375; 99284; G0378; J0500; J1815; J2001; J2250; J2270; J2405; J2543; J2704; J2710; J3010; J7030; Q9967

== ENCOUNTER 2022-02-20 15:43 | Emergency (ER) | payer SELFPAY ==
--- OUTSIDE RECORDS SUMMARY | 2022-02-20 15:55 | XMS REPORT | Continuity of Care Document ---
:1975 Author Organization [facility] t Address [address] [place] [address] Care Team Providers Name Role Phone Maria Victoria Mckenna Primary Care Physician Sury Choudhary Attending Clinician Maria Victoria Mckenna Attending Clinician [phone] SURY SANCHES Attending Clinician Unavailable Doctor Unassigned, [place] Attending Clinician Unavailable MARIA VICTORIA BEAN Attending Clinician Unavailable Payers Payer Name Policy Type Policy Number Effective Date Expiration Date S ource Problems Condition Condition Condition Status Onset Resolution Last Treating Co mments Source Name Details Category Date Date Treatment Clinician Date History of History of Disease Active U nivers herpes herpes 6-24 ity of genitalis genitalis 00:00: [facility] Medical Branch Encounter Encounter Disease Active Uni [...] different from the original. 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 Post BTL Diabetes Diabetes Disease Active Unive rs 03-23 ity of 00:00: [place] 00 [facility] Allergies, Adverse Reactions, Alerts This patient has no known allergies or adverse reactions. Social History Social Habit Start Date Stop Date Quantity Comments Source History of tobacco Cigarette Smoker University of use [facility] Alcohol intake 2021-08-16 2021-08-16 0 /d University of 00:00:00 00:00:00 [facility] Cigarettes smoked 2019-02-03 2019-02-03 Univers ity of current (pack per 00:00:00 00:00:00 ) - Reported Branch Tobacco use and 2019-02-03 2019-02-03 Smokeless Universit y of exposure 00:00:00 00:00:00 tobacco non-user [facility] 2019-02-03 2019-02-03 University of pack-years 00:00:00 00:00:00 [facility] Tobacco Comment 2014-03-23 2014-03-23 smokes 7 x per Unive rsity of 00:00:00 00:00:00 day [facility] Sex Ass[birth year] At [birth year] Universit y of 00:00:00 00:00:00 [facility] Smoking Status Start Date Stop Date Source Smokes tobacco daily 2019-02-03 00:00:00 Univers ity of [facility] Medications Ordered Filled Start Stop Current Ordering Indication Dosage Frequency Signature Comments Components Source Medication Medication Date Date Medication? Clinician (SIG) Name Name TAKE No TABLET BY 8-25 MOUTH TWICE 00:00: DAILY FOR 5 00 DAYS TAKE 1 2022-0 No TABLET BY 8-25 MOUTH TWICE 00:00: DAILY FOR 5 00 DAYS acyclovir 2021-0 Yes [id number] 400mg Take 1 Univers 400 mg 8-18 tablet by ity of tablet 00:00: mouth in [place] 00 the Medical morning Branch and 1 [...] y of Vaccine Quad .5 mL 00:00:00 [facility] IM 6+ MO Branch Influenza Virus 2018-01-28 Completed Universit y of Vaccine Quad .5 mL 00:00:00 [facility] 6+ MO Branch TDAP 2014-03-23 Completed [facility] 00:00:00 [facility] Vital Signs Vital Name Observation [...] Goal Plan of Care Note [code = 61477-0] Goal Plan of Care Note [code = 54425-2] Goal Plan of Care Note [code = 04275-5] Goal Plan of Care Note [code = 15502-5] Goal Plan of Care Note [code = 31431-4] Goal Plan of Care Note [code = 44402-0] Goal Plan of Care Note [code = 18988-6] Goal Plan of Care Note [code = 92784-5] Goal Plan of Care Note [code = 61819-2] Goal Plan of Care Note [code = 52448-6] Goal Plan of Care Note [code = 46700-8] Goal Plan of Care Note [code = 78240-8] Goal Plan of Care Note [code = 65757-3] Goal Plan of Care Note [code = 03161-8] Goal Plan of Care Note [code = 78258-0] Goal Plan of Care Note [code = 95999-1] Goal Plan of Care Note [code = 85906-8] Goal Plan of Care Note [code = 50260-1] Goal Plan of Care Note [code = 57092-1] Goal Plan of Care Note [code = 42655-7] Goal Plan of Care Note [code = 49560-3] Goal Plan of Care Note [code = 36312-7] Goal Plan of Care Note [code = 22010-4] Goal Plan of Care Note [code = 70452-5] Goal Plan of Care Note [code = 28433-4] Goal Plan of Care Note [code = 29612-3] Goal Plan of Care Note [code = 89500-4] Goal Plan of Care Note [code = 56143-2] Goal Plan of Care Note [code = 47830-9] Goal Plan of Care Note [code = 96316-2] Goal Plan of Care Note [code = 86509-3] Goal Plan of Care Note [code = 69629-2] Goal Plan of Care Note [code = 07314-8] Goal Plan of Care Note [code = 12934-3] Goal Plan of Care Note [code = 24769-6] Goal Plan of Care Note [code = 28208-3] Goal Plan of Care Note [code = 71061-3] Goal Plan of Care Note [code = 40688-5] Goal Plan of Care Note [code = 56051-7] Goal Plan of Care Note [code = 86281-5] Goal Plan of Care Note [code = 57364-9] Goal Plan of Care Note [code = 78583-7] Goal Plan of Care Note [code = 04297-5] Goal Plan of Care Note [code = 01345-0] Goal Plan of Care Note [code = 26390-0] Goal Plan of Care Note [code = 90581-1] Goal Plan of Care Note [code = 76794-5] Goal Plan of Care Note [code = 05004-4] Goal Plan of Care Note [code = 24247-3] Goal Plan of Care Note [code = 16362-1] Goal Plan of Care Note [code = 05748-9] Goal Plan of Care Note [code = 62656-3] Goal Plan of Care Note [code = 56748-8] Goal Plan of Care Note [code = 00236-0] Goal Plan of Care Note [code = 60299-4] Goal Plan of Care Note [code = 34728-6] Goal Plan of Care Note [code = 28690-5] Goal Plan of Care Note [code = 42310-4] Goal Plan of Care Note [code = 04466-5] Goal Plan of Care Note [code = 77912-4] Goal Plan of Care Note [code = 88597-0] Goal Plan of Care Note [code = 69148-2] Goal Plan of Care Note [code = 57284-5] Goal Plan of Care Note [code = 53228-0] Goal Plan of Care Note [code = 81020-3] Goal Plan of Care Note [code = 59515-0] Goal Plan of Care Note [code = 71105-4] Goal Plan of Care Note [code = 69877-4] Goal Plan of Care Note [code = 73550-7] Goal Plan of Care Note [code = 93834-3] Goal Plan of Care Note [code = 44599-9] Goal Plan of Care Note [code = 16320-0] Goal Plan of Care Note [code = 15050-2] Goal Plan of Care Note [code = 01477-0] Goal Plan of Care Note [code = 32742-9] Goal Plan of Care Note [code = 01797-3] Goal Plan of Care Note [code = 18653-9] Goal Plan of Care Note [code = 83044-1] Goal Plan of Care Note [code = 04326-1] Goal Plan of Care Note [code = 02532-8] Goal Plan of Care Note [code = 20245-1] Goal Plan of Care Note [code = 76996-2] Goal Plan of Care Note [code = 73533-1] Goal Plan of Care Note [code = 97731-2] Goal Plan of Care Note [code = 88521-7] Goal Plan of Care Note [code = 57892-3] Goal Plan of Care Note [code = 93112-0] Goal Plan of Care Note [code = 50293-7] Goal Plan of Care Note [code = 68111-9] Goal Plan of Care Note [code = 44491-5] Goal Plan of Care Note [code = 78686-0] Goal Plan of Care Note [code = 38230-0] Goal Plan of Care Note [code = 74343-8] Goal Plan of Care Note [code = 70114-9] Goal Plan of Care Note [code = 17799-7] Goal Plan of Care Note [code = 62015-8] Goal Plan of Care Note [code = 05397-0] Goal Plan of Care Note [code = 70345-7] Goal Plan of Care Note [code = 54259-8] Encounters Start End Encounter Admission Attending Care Care Encounter Source Date/Time Date/Time Type Type Clinicians Facility Department ID 2021-11-18 2021-11-18 Outpatient [id number] 00:00:00 00:00:00 Visit 968f-4285 68f-4285-b -bff4-e01 ff4-e01f7b j7ke2690j x2380i 2021-10-10 2021-10-10 [facility] [id number] Univers 00:00:00 00:00:00 Porfirionda R CPR AMBULANCE DRIVER 350.1.13.10 ity of REGIONAL 4.2.7.2.686 Billy as MATERNAL [id number] [facility] ical & CHILD [address] [place] [address] 2021-10-08 2021-10-08 [facility] [id number] Univers 00:00:00 00:00:00 Roskellynda R CPR AMBULANCE DRIVER 350.1.13.10 ity of REGIONAL 4.2.7.2.686 Billy as MATERNAL [id number] [facility] & CHILD [address] [place] [address] 2021-09-09 2021-09-09 Outpatient [id number] sqt3zn-8 00:00:00 00:00:00 Visit 5710-46a0 710-46a0-8 -8ace-51a juanita-51ab6a a9vg24azo d09cee 2021-08-30 2021-08-30 Outpatient [id number] [id number] 00:00:00 00:00:00 Visit 9dbd-41b0 dbd-41b0-b -vt61-63v q62-08w0e4 8d11438fi 6086ca 2021-08-27 2021-08-27 [facility]phone [facility] 1.2.840.114 [id number] [facility] 00:00:00 00:00:00 Maria Victoria C CPR AMBULANCE DRIVER 350.1.13.10 ity of REGIONAL 4.2.7.2.686 Billy as MATERNAL [id number] [facility] & CHILD [address] [place] [address] 2021-08-16 2021-08-16 Outpatient R [facility] [id number] Univers 09:00:00 09:54:52 SURY riley o f [facility] 2021-08-16 2021-08-16 Office [facility] 1.2.840.114 [id number] Univers 09:00:00 09:54:52 Visit Roshunda R CPR AMBULANCE DRIVER 350.1.13.10 ity of [facility] 4.2.7.2.686 Billy as MATERNAL [id number] [facility] & CHILD [address] [place] [address] 2021-08-16 2021-08-16 Outpatient R [facility] [id number] Univers 09:00:00 09:00:00 PORFIRIOASTER riley o f [facility] 2021-08-16 2021-08-16 Outpatient Napoleon [facility] [id number] Univers 08:30:00 08:30:00 SURY osvaldo o f [facility] 2021-08-16 2021-08-16 Orders Doctor RAY 1.2.840.114 [id number] Univers 00:00:00 00:00:00 Only Unassigned, [place] 350.1.13.10 ity of [place] [facility] 4.2.7.2.686 Billy as [id number] [address] 2021-07-28 2021-07-28 Vivek [facility] 1.2.840.114 [id number] Univers 00:00:00 00:00:00 Sury R CPR AMBULANCE DRIVER 350.1.13.10 ity of [facility] 4.2.7.2.686 Billy as MATERNAL [id number] [facility] & CHILD [address] [place] [address] 2020-06-27 2020-06-27 Linnea Bean [facility] 1.2.840.114 [id number] Univers 00:00:00 00:00:00 Maria Victoria Obando CPR AMBULANCE DRIVER 350.1.13.10 ity of [facility] 4.2.7.2.686 Billy as MATERNAL [id number] [facility] & CHILD [address] [place] [address] 2020-05-22 2020-05-22 Vivek Sanches [facility] 1.2.840.114 [id number] Univers 00:00:00 00:00:00 Lexxa R CPR AMBULANCE DRIVER 350.1.13.10 ity of [facility] 4.2.7.2.686 Billy as MATERNAL [id number] [facility] & CHILD [address] [place] [address] 2020-05-22 2020-05-22 Vivek Sanches [facility] 1.2.840.114 [id number] 00:00:00 00:00:00 Roshunda R CPR AMBULANCE DRIVER 350.1.13.10 REGIONAL 4.2.7.2.686 MATERNAL [id number] & CHILD [address] [place] [address] 2020-05-21 2020-05-21 Refill [facility] 1.2.750.625 [id number] Univers 00:00:00 00:00:00 Maria Victoria C CPR AMBULANCE DRIVER 350.1.13.10 ity of REGIONAL 4.2.7.2.686 Billy as MATERNAL [phone] [facility] & CHILD [address] [place] [address] 2020-05-21 2020-05-21 [facility] [id number] 00:00:00 00:00:00 Maria Victoria C CPR AMBULANCE DRIVER 350.1.13.10 REGIONAL 4.2.7.2.686 MATERNAL [id number] & CHILD [address] [place] [address] 2020-04-03 2020-04-03 [facility] [id number] Univers 00:00:00 00:00:00 PORFIRIONDA ity o f [facility] 2020-03-06 2020-03-06 Telephone [facility] [id number] Univers 00:00:00 00:00:00 Roshunda R CPR AMBULANCE DRIVER 350.1.13.10 ity of [facility] 4.2.7.2.686 Billy as MATERNAL [id number] [facility] & CHILD [address] [place] [address] 2020-03-06 2020-03-06 Telephone [facility] [id number] 00:00:00 00:00:00 Roshunda R CPR AMBULANCE DRIVER 350.1.13.10 REGIONAL 4.2.7.2.686 MATERNAL [id number] & CHILD [address] [place] [address] 2020-03-02 2020-03-02 Office [facility] 1.2.840.114 [id number] Univers 09:22:04 10:49:08 Visit Roskellynda R CPR AMBULANCE DRIVER 350.1.13.10 ity of REGIONAL 4.2.7.2.686 Billy as MATERNAL [id number] [facility] & CHILD [address] [place] [address] 2020-03-02 2020-03-02 [facility] [id number] Univers 09:30:00 09:30:00 PORFIRIOASTER riley o f [facility] 2020-03-02 2020-03-02 Outpatient [facility] [id number] Univers 09:30:00 09:30:00 JACQUELINEOLIVIERA seany o f [facility] 2020-03-02 2020-03-02 [facility] [id number] Univers 09:00:00 09:00:00 MARIA VICTORIA riley o f [facility] 2020-03-02 2020-03-02 Orders Doctor RAY 1.2.840.114 [id number] Univers 00:00:00 00:00:00 Only Unassigned, [place] 350.1.13.10 ity of [place] [facility] 4.2.7.2.686 Billy as [id number] [address] 2020-02-29 2020-02-29 Telephone [facility] 1.2.840.114 [id number] Univers 00:00:00 00:00:00 Maria Victoria C CPR AMBULANCE DRIVER 350.1.13.10 ity of REGIONAL 4.2.7.2.686 Billy as MATERNAL [id number] [facility] & CHILD [address] [place] [address] 2020-02-29 2020-02-29 Refill [facility] 1.2.395.103 [id number] Univers 00:00:00 00:00:00 Maria Victoria C CPR AMBULANCE DRIVER 350.1.13.10 ity of REGIONAL 4.2.7.2.686 Billy as MATERNAL [id number] [facility] & CHILD [address] [place] [address] 2019-12-30 2019-12-30 Orders Doctor RAY 1.2.840.114 [id number] Univers 00:00:00 00:00:00 Only Unassigned, [place] 350.1.13.10 ity of [place] [facility] 4.2.7.2.686 Billy as [id number] [address] 2019-08-02 2019-08-02 Outpatient R [facility]KO [facility] [id number] Univers 08:15:00 08:15:00 SURY ity o f [facility] 2019-08-02 2019-08-02 Office Guanako [facility] 1.2.840.114 [id number] Univers 07:45:14 08:13:52 Visit Sury Bender CPR AMBULANCE DRIVER [place].1.13.10 [place] [address].7.2.686 Billy as MATERNAL [id number] [facility] & CHILD [address] [place] [address] 2019-07-29 2019-07-29 Telephone Yara [facility] 1.2.840.114 [id number] Univers 00:00:00 00:00:00 Maria Victoria Obando CPR AMBULANCE DRIVER [address].1.13.[address]686 Billy as MATERNAL [id number] [address] Results Test Description Test Time Test [...] MOREINFORMATION , SEE CLIENT ANNOUNCEMENT AT [email or web address] RISK RATIO LDL/HDL (test code (NOTE) RATIO <3.22 UNABLE TO CALCULATE = 2238) COMPREHENSIVE METABOLIC [id number] 04:31:34 Test Item Value Reference Range Interpretation Comments GLUCOSE (test code = 103 MG/DL 70-99 H 2216) BUN (test code = 7 MG/DL 6-20 2207) CREATININE (test 0.53 MG/DL 0.60-1.30 L code = 2214) eGFR (2020 CKD-EPI) 114 >60 (test code = 58865) ML/MIN/1.73 CALC BUN/CREAT (test 13 RATIO 6-28 code = 2235) SODIUM (test code = 140 MEQ/L 478-423 0241) POTASSIUM (test code 3.9 MEQ/L 3.5-5.4 = [...] [facility] [place] [place] [address] LABOR ATORY DIRECTOR: MARLENE GONZALEZ M.D. CLIA NUMBER [id number] CAP ACCREDITATION N O. [id number] HEMOGLOBIN [id number] 03:56:58 Test Item Value Reference Range Interpretation Comments HEMOGLOBIN A1c (test 7.6 % 4.2-5.6 H AMERIC AN DIABETES code = 07971) ASSOCIATION IDELINES FOR HGB A1C: PREDIABETES/INC REASED [...] ATE TESTING OR LABORATORY C ONSULTATION. LIPID [id number] 00:00:00 Test Item Value Reference Range Interpretation Comments CHOLESTEROL (test code = 2210) 289 MG/DL TRIGLYCERIDES (test code = 2232) 1152 MG/DL HDL CHOLESTEROL (test code = 29 MG/DL 2220) CALC LDL CHOL (test code = 2237) (NOTE) MG/DL RISK RATIO LDL/HDL (test code = (NOTE) RATIO 2238) LIPID [id number] 00:00:00 Test Item Value Reference Range Interpretation Comments CHOLESTEROL (test code = 2210) 289 MG/DL TRIGLYCERIDES (test code = 2232) 1152 MG/DL HDL CHOLESTEROL (test code = 29 MG/DL 2220) CALC LDL CHOL (test code = 2237) (NOTE) MG/DL RISK RATIO LDL/HDL (test code = (NOTE) RATIO 2238) HEMOGLOBIN [id number] 00:00:00 Test Item Value Reference Range Interpretation Comments HEMOGLOBIN A1c (test code = 81063) 7.6 % HEMOGLOBIN [id number] 00:00:00 Test Item Value Reference Range Interpretation Comments HEMOGLOBIN A1c (test code = 49392) 7.6 % HEMOGLOBIN [id number] 00:00:00 Test Item Value Reference Range Interpretation Comments HEMOGLOBIN A1c (test code = 27101) 7.6 % COMPREHENSIVE METABOLIC [id number] 00:00:00 Test Item Value Reference Range Interpretation Comments GLUCOSE (test code = 2217) 103 MG/DL BUN (test code = 2208) 7 MG/DL CREATININE (test code = 2214) 0.53 MG/DL eGFR (2020 CKD-EPI) (test 114 ML/MIN/1.73 code = 48094) CALC BUN/CREAT (test code = 13 RATIO [...] code = 2219) 25 U/L COMPREHENSIVE METABOLIC [id number] 00:00:00 Test Item Value Reference Range Interpretation Comments GLUCOSE (test code = 2217) 103 MG/DL BUN (test code = 2208) 7 MG/DL CREATININE (test code = 2214) 0.53 MG/DL eGFR (2020 CKD-EPI) (test 114 ML/MIN/1.73 code = 35343) CALC BUN/CREAT (test code = 13 RATIO [...] (test code = 2219) 25 U/L LIPID [id number] 00:00:00 Test Item Value Reference Range Interpretation Comments CHOLESTEROL (test code = 2210) 289 MG/DL TRIGLYCERIDES (test code = 2232) 1152 MG/DL HDL CHOLESTEROL (test code = 29 MG/DL 2220) CALC LDL CHOL (test code = 2237) (NOTE) MG/DL RISK RATIO LDL/HDL (test code = (NOTE) RATIO 2238) LIPID [id number] 00:00:00 Test Item Value Reference Range Interpretation Comments CHOLESTEROL (test code = 2210) 289 MG/DL TRIGLYCERIDES (test code = 2232) 1152 MG/DL HDL CHOLESTEROL (test code = 29 MG/DL 2220) CALC LDL CHOL (test code = 2237) (NOTE) MG/DL RISK RATIO LDL/HDL (test code = (NOTE) RATIO 2238) HEMOGLOBIN [id number] 00:00:00 Test Item Value Reference Range Interpretation Comments HEMOGLOBIN A1c (test code = 90439) 7.6 % HEMOGLOBIN [id number] 00:00:00 Test Item Value Reference Range Interpretation Comments HEMOGLOBIN A1c (test code = 07565) 7.6 % HEMOGLOBIN [id number] 00:00:00 Test Item Value Reference Range Interpretation Comments HEMOGLOBIN A1c (test code = 12621) 7.6 % COMPREHENSIVE METABOLIC [id number] 00:00:00 Test Item Value Reference Range Interpretation Comments GLUCOSE (test code = 2217) 103 MG/DL BUN (test code = 2208) 7 MG/DL CREATININE (test code = 2214) 0.53 MG/DL eGFR (2020 CKD-EPI) (test 114 ML/MIN/1.73 code = 64994) CALC BUN/CREAT (test code = 13 RATIO [...] code = 2219) 25 U/L COMPREHENSIVE METABOLIC [id number] 00:00:00 Test Item Value Reference Range Interpretation Comments GLUCOSE (test code = 2217) 103 MG/DL BUN (test code = 2208) 7 MG/DL CREATININE (test code = 2214) 0.53 MG/DL eGFR (2020 CKD-EPI) (test 114 ML/MIN/1.73 code = 35867) CALC BUN/CREAT (test code = 13 RATIO [...] = 2219) 25 U/L ALBUMIN/CREATININE RATIO, URINE, [id number] 06:08:56 Test Item Value Reference Range Interpretation Comments CREATININE, URINE, 170.9 MG/DL NOT ESTAB RANDOM (test code = 2072) ALBUMIN, URINE, 45.7 MG/DL NOT ESTAB RANDOM (test code = 22248) CALC ALBUMIN/CREAT, 267 MG/G <30 H Note: RND (test code = Albumin/Cre atinine 13731) ratio reference interval reflec ts ADA and NKF guideli des. VITAMIN D, 25 [id number] 04:23:26 Test Item Value Reference Range Interpretation [...] . . NG/ML 30-100 MICROALBUMIN/CREATININE, RANDOM AND [id number] 00:00:00 Test Item Value Reference Range Interpretation Comments CREATININE, URINE, RANDOM (test 170.9 MG/DL code = 2072) ALBUMIN, URINE, RANDOM (test code 45.7 MG/DL = 47578) CALC ALBUMIN/CREAT, RND (test 267 MG/G code = 24737) VITAMIN D, 25 [id number] 00:00:00 Test Item Value Reference Range Interpretation Comments VITAMIN D, 25 OH (test code = 4958) 9 NG/ML MICROALBUMIN/CREATININE, RANDOM AND [id number] 00:00:00 Test Item Value Reference Range Interpretation Comments CREATININE, URINE, RANDOM (test 170.9 MG/DL code = 2072) ALBUMIN, URINE, RANDOM (test code 45.7 MG/DL = 46210) CALC ALBUMIN/CREAT, RND (test 267 MG/G code = 04665) MICROALBUMIN/CREATININE, RANDOM AND [id number] 00:00:00 Test Item Value Reference Range Interpretation Comments CREATININE, URINE, RANDOM (test 170.9 MG/DL code = 2072) ALBUMIN, URINE, RANDOM (test code 45.7 MG/DL = 72527) CALC ALBUMIN/CREAT, RND (test 267 MG/G code = 23011) VITAMIN D, 25 [id number] 00:00:00 Test Item Value Reference Range Interpretation Comments VITAMIN D, 25 OH (test code = 4958) 9 NG/ML VITAMIN D, 25 [id number] 00:00:00 Test Item Value Reference Range Interpretation Comments VITAMIN D, 25 OH (test code = 4958) 9 NG/ML MICROALBUMIN/CREATININE, RANDOM AND [id number] 00:00:00 Test Item Value Reference Range Interpretation Comments CREATININE, URINE, RANDOM (test 170.9 MG/DL code = 2072) ALBUMIN, URINE, RANDOM (test code 45.7 MG/DL = 64963) CALC ALBUMIN/CREAT, RND (test 267 MG/G code = 08615) MICROALBUMIN/CREATININE, RANDOM AND [id number] 00:00:00 Test Item Value Reference Range Interpretation Comments CREATININE, URINE, RANDOM (test 170.9 MG/DL code = 207) ALBUMIN, URINE, RANDOM (test code 45.7 MG/DL = 62786) CALC ALBUMIN/CREAT, RND (test 267 MG/G code = 27679) VITAMIN D, 25 [id number] 00:00:00 Test Item Value Reference Range Interpretation Comments VITAMIN D, 25 OH (test code = 4958) 9 NG/ML VITAMIN D, 25 [id number] 00:00:00 Test Item Value Reference Range Interpretation Comments VITAMIN D, 25 OH (test code = 4958) 9 NG/ML COMPREHENSIVE METABOLIC [id number] 22:05:35 Test Item Value Reference Range Interpretation Comments GLUCOSE (test code = 240 MG/DL 70-99 H 2216) BUN (test code = 9 MG/DL 6-20 2207) CREATININE (test 0.47 MG/DL 0.60-1.30 L code = 2214) eGFR (2020 CKD-EPI) 118 >60 (test code = 95082) ML/MIN/1.73 CALC BUN/CREAT (test 19 RATIO 6-28 code = 2235) SODIUM (test code = 134 MEQ/L 696-803 1224) POTASSIUM (test code 4.4 MEQ/L 3.5-5.4 = 2227) CHLORIDE (test code 93 MEQ/L 95-107 L = 2215) CARBON DIOXIDE (test 19 MEQ/L 19-31 code = 2206) CALCIUM (test code = 9.5 MG/DL 8.5-10.5 2208) PROTEIN, TOTAL (test 6.9 G/DL 6.1-8.3 code = 222) ALBUMIN (test code = 4.3 G/DL 3.5-5.2 2200) CALC GLOBULIN (test 2.6 G/DL 1.9-3.7 code = 2240) CALC A/G RATIO (test 1.7 RATIO 1.0-2.6 code = 2234) BILIRUBIN, TOTAL 0.3 MG/DL See_Comment [Automated message] (test code = 2207) The syste m which generated this result transmit [place] reference range : <=1.2. The refe rence range was not u sed to interpret th is result as normal/abnormal . ALKALINE PHOSPHATASE 94 U/L 40-120 (test code = 2203) AST (test code = 9 U/L 9-40 2217) ALT (test code = 49 U/L 5-40 H 2218) IRON, [id number] 22:05:35 Test Item Value Reference Range Interpretation Comments IRON, SERUM (test 91 UG/DL 37-145 UNLESS O THERWISE code = 2222) INDICATED, ALL TESTING PERFORMED [facility] N[facility] PATHOLOGY [employer]. [address] [place] [id number] [place] [address] DIRECTOR: MARLENE GONZALEZ M.D. IA NUMBER [id number] CAP ACCREDITATION N O. [id number] LIPID [id number] 22:05:35 Test Item Value Reference Range Interpretation [...] , SEE CLIENT ANNOUNCE MENT AT [email or web address] CalcLDL-C RISK RATIO LDL/HDL (NOTE) RATIO <3.22 UNABLE TO CALCULATE (test code = 223) VITAMIN [id number] 05:31:10 Test Item Value Reference Range Interpretation Comments VITAMIN B-12 (test code = 2840) >2000 PG/ML 200-950 H COMPREHENSIVE METABOLIC [id number] 00:00:00 Test Item Value Reference Range Interpretation Comments GLUCOSE (test code = 2217) 240 MG/DL BUN (test code = 2208) 9 MG/DL CREATININE (test code = 2214) 0.47 MG/DL eGFR (2020 CKD-EPI) (test 118 ML/MIN/1.73 code = 61745) CALC BUN/CREAT (test code = 19 RATIO [...] (test code = 2219) 49 U/L VITAMIN [id number] 00:00:00 Test Item Value Reference Range Interpretation Comments VITAMIN B-12 (test code = 2840) >2000 PG/ML VITAMIN [id number] 00:00:00 Test Item Value Reference Range Interpretation Comments VITAMIN B-12 (test code = 2840) >2000 PG/ML IRON, [id number] 00:00:00 Test Item Value Reference Range Interpretation Comments IRON, SERUM (test code = 2222) 91 UG/DL LIPID [id number] 00:00:00 Test Item Value Reference Range Interpretation Comments CHOLESTEROL (test code = 2210) 814 MG/DL TRIGLYCERIDES (test code = 2232) 549 MG/DL HDL CHOLESTEROL (test code = 20 MG/DL 2219) CALC LDL CHOL (test code = 2237) (NOTE) MG/DL RISK RATIO LDL/HDL (test code = (NOTE) RATIO 2238) LIPID [id number] 00:00:00 Test Item Value Reference Range Interpretation Comments CHOLESTEROL (test code = 2210) 814 MG/DL TRIGLYCERIDES (test code = 2232) 549 MG/DL HDL CHOLESTEROL (test code = 20 MG/DL 0) CALC LDL CHOL (test code = 2237) (NOTE) MG/DL RISK RATIO LDL/HDL (test code = (NOTE) RATIO 2238) COMPREHENSIVE METABOLIC [id number] 00:00:00 Test Item Value Reference Range Interpretation Comments GLUCOSE (test code = 2217) 240 MG/DL BUN (test code = 2208) 9 MG/DL CREATININE (test code = 2214) 0.47 MG/DL eGFR (2020 CKD-EPI) (test 118 ML/MIN/1.73 code = 62160) CALC BUN/CREAT (test code = 19 RATIO [...] code = 2219) 49 U/L COMPREHENSIVE METABOLIC [id number] 00:00:00 Test Item Value Reference Range Interpretation Comments GLUCOSE (test code = 2217) 240 MG/DL BUN (test code = 2208) 9 MG/DL CREATININE (test code = 2214) 0.47 MG/DL eGFR (2020 CKD-EPI) (test 118 ML/MIN/1.73 code = 68744) CALC BUN/CREAT (test code = 19 RATIO 2235) SODIUM (test code = 2231) 134 MEQ/L POTASSIUM (test code = 2228) 4.4 MEQ/L CHLORIDE (test code = 2215) 93 MEQ/L CARBON DIOXIDE (test code = 19 MEQ/L 2206) CALCIUM (test code = 2209) 9.5 MG/DL PROTEIN, TOTAL (test code = 6.9 G/DL 222) ALBUMIN (test code = 2201) 4.3 G/DL CALC GLOBULIN (test code = 2.6 G/DL 2240) CALC A/G RATIO (test code = 1.7 RATIO 2234) BILIRUBIN, TOTAL (test code = 0.3 MG/DL 220) ALKALINE PHOSPHATASE (test 94 U/L code = 2204) AST (test code = 2218) 9 U/L ALT (test code = 2219) 49 U/L VITAMIN [id number] 00:00:00 Test Item Value Reference Range Interpretation Comments VITAMIN B-12 (test code = 2840) >2000 PG/ML VITAMIN [id number] 00:00:00 Test Item Value Reference Range Interpretation Comments VITAMIN B-12 (test code = 2840) >2000 PG/ML VITAMIN [id number] 00:00:00 Test Item Value Reference Range Interpretation Comments VITAMIN B-12 (test code = 2840) >2000 PG/ML IRON, [id number] 00:00:00 Test Item Value Reference Range Interpretation Comments IRON, SERUM (test code = 2222) 91 UG/DL IRON, [id number] 00:00:00 Test Item Value Reference Range Interpretation Comments IRON, SERUM (test code = 2222) 91 UG/DL LIPID [id number] 00:00:00 Test Item Value Reference Range Interpretation Comments CHOLESTEROL (test code = 2210) 814 MG/DL TRIGLYCERIDES (test code = 2232) 549 MG/DL HDL CHOLESTEROL (test code = 20 MG/DL 2220) CALC LDL CHOL (test code = 2237) (NOTE) MG/DL RISK RATIO LDL/HDL (test code = (NOTE) RATIO 2238) LIPID [id number] 00:00:00 Test Item Value Reference Range Interpretation Comments CHOLESTEROL (test code = 2210) 814 MG/DL TRIGLYCERIDES (test code = 2232) 549 MG/DL HDL CHOLESTEROL (test code = 20 MG/DL 2220) CALC LDL CHOL (test code = 2237) (NOTE) MG/DL RISK RATIO LDL/HDL (test code = (NOTE) RATIO 2238) COMPREHENSIVE METABOLIC [id number] 00:00:00 Test Item Value Reference Range Interpretation Comments GLUCOSE (test code = 2217) 240 MG/DL BUN (test code = 2208) 9 MG/DL CREATININE (test code = 2214) 0.47 MG/DL eGFR (2020 CKD-EPI) (test 118 ML/MIN/1.73 code = 85065) CALC BUN/CREAT (test code = 19 RATIO [...] code = 2219) 49 U/L COMPREHENSIVE METABOLIC [id number] 00:00:00 Test Item Value Reference Range Interpretation Comments GLUCOSE (test code = 2217) 240 MG/DL BUN (test code = 2208) 9 MG/DL CREATININE (test code = 2214) 0.47 MG/DL eGFR (2020 CKD-EPI) (test 118 ML/MIN/1.73 code = 26770) CALC BUN/CREAT (test code = 19 RATIO [...] (test code = 2219) 49 U/L VITAMIN [id number] 00:00:00 Test Item Value Reference Range Interpretation Comments VITAMIN B-12 (test code = 2840) >2000 PG/ML VITAMIN [id number] 00:00:00 Test Item Value Reference Range Interpretation Comments VITAMIN B-12 (test code = 2840) >2000 PG/ML VITAMIN [id number] 00:00:00 Test Item Value Reference Range Interpretation Comments VITAMIN B-12 (test code = 2840) >2000 PG/ML IRON, [id number] 00:00:00 Test Item Value Reference Range Interpretation Comments IRON, SERUM (test code = 2222) 91 UG/DL IRON, [id number] 00:00:00 Test Item Value Reference Range Interpretation Comments IRON, SERUM (test code = 2222) 91 UG/DL LIPID [id number] 00:00:00 Test Item Value Reference Range Interpretation Comments CHOLESTEROL (test code = 2210) 814 MG/DL TRIGLYCERIDES (test code = 2232) 549 MG/DL HDL CHOLESTEROL (test code = 20 MG/DL 0) CALC LDL CHOL (test code = 2237) (NOTE) MG/DL RISK RATIO LDL/HDL (test code = (NOTE) RATIO 2238) CBC W/AUTO DIFF WITH [id number] 03:36:44 Test Item Value Reference Range Interpretation [...] RBCS 0.02 K/UL 0.00-0.11 (test code = 08714) HEMOGLOBIN [id number] 03:25:41 Test Item Value Reference Range Interpretation Comments HEMOGLOBIN A1c (test 8.7 % 4.2-5.6 H AMERIC AN DIABETES code = 08900) ASSOCIATION IDELINES FOR HGB A1C: PREDIABETES/INC REASED [...] ATE TESTING OR LABORATORY C ONSULTATION. HEMOGLOBIN [id number] 00:00:00 Test Item Value Reference Range Interpretation Comments HEMOGLOBIN A1c (test code = 17788) 8.7 % HEMOGLOBIN [id number] 00:00:00 Test Item Value Reference Range Interpretation Comments HEMOGLOBIN A1c (test code = 47724) 8.7 % CBC W/AUTO [id number] 00:00:00 Test Item Value Reference Range Interpretation [...] NUCLEATED RBCS (test code = 0.02 K/UL 59363) CBC W/AUTO [id number] 00:00:00 Test Item Value Reference Range Interpretation [...] NUCLEATED RBCS (test code = 0.02 K/UL 68443) HEMOGLOBIN [id number] 00:00:00 Test Item Value Reference Range Interpretation Comments HEMOGLOBIN A1c (test code = 64742) 8.7 % HEMOGLOBIN [id number] 00:00:00 Test Item Value Reference Range Interpretation Comments HEMOGLOBIN A1c (test code = 82903) 8.7 % HEMOGLOBIN [id number] 00:00:00 Test Item Value Reference Range Interpretation Comments HEMOGLOBIN A1c (test code = 70483) 8.7 % CBC W/AUTO [id number] 00:00:00 Test Item Value Reference Range Interpretation [...] NUCLEATED RBCS (test code = 0.02 K/UL 15854) CBC W/AUTO [id number] 00:00:00 Test Item Value Reference Range Interpretation [...] NUCLEATED RBCS (test code = 0.02 K/UL 13641) CBC W/AUTO [id number] 00:00:00 Test Item Value Reference Range Interpretation [...] NUCLEATED RBCS (test code = 0.02 K/UL 96424) HEMOGLOBIN [id number] 00:00:00 Test Item Value Reference Range Interpretation Comments HEMOGLOBIN A1c (test code = 80103) 8.7 % HEMOGLOBIN [id number] 00:00:00 Test Item Value Reference Range Interpretation Comments HEMOGLOBIN A1c (test code = 24343) 8.7 % HEMOGLOBIN [id number] 00:00:00 Test Item Value Reference Range Interpretation Comments HEMOGLOBIN A1c (test code = 18251) 8.7 % CBC W/AUTO [id number] 00:00:00 Test Item Value Reference Range Interpretation [...] NUCLEATED RBCS (test code = 0.02 K/UL 21978) CBC W/AUTO [id number] 00:00:00 Test Item Value Reference Range Interpretation [...] NUCLEATED RBCS (test code = 0.02 K/UL 05954) CBC W/AUTO [id number] 00:00:00 Test Item Value Reference Range Interpretation [...] NUCLEATED RBCS (test code = 0.02 K/UL 45313) [id number] 04:11:20 Test Item Value Reference Range Interpretation Comments LIPASE (test code = 2058) 18 U/L 13-60 [id number] 04:11:20 Test Item Value Reference Range Interpretation Comments AMYLASE (test code = 41 U/L 28-100 UNLESS OTHERWISE 2205) INDICATED, ALL TESTING PERFORMED [facility] PATHOLOGY [facility] [address] [place] [address] [facility] DIRECTOR: Rolly LEONARDIA NUMBER [id number] CAP ACCREDITATION N O. [id number] 00:00:00 Test Item Value Reference Range Interpretation Comments AMYLASE (test code = 2205) 41 U/L [id number] 00:00:00 Test Item Value Reference Range Interpretation Comments LIPASE (test code = 2057) 18 U/L [id number] 00:00:00 Test Item Value Reference Range Interpretation Comments LIPASE (test code = 2057) 18 U/L [id number] 00:00:00 Test Item Value Reference Range Interpretation Comments LIPASE (test code = 2057) 18 U/L [id number] 00:00:00 Test Item Value Reference Range Interpretation Comments AMYLASE (test code = 2205) 41 U/L [id number] 00:00:00 Test Item Value Reference Range Interpretation Comments AMYLASE (test code = 2205) 41 U/L [id number] 00:00:00 Test Item Value Reference Range Interpretation Comments LIPASE (test code = 2057) 18 U/L [id number] 00:00:00 Test Item Value Reference Range Interpretation Comments LIPASE (test code = 2057) 18 U/L [id number] 00:00:00 Test Item Value Reference Range Interpretation Comments LIPASE (test code = 2057) 18 U/L [id number] 00:00:00 Test Item Value Reference Range Interpretation Comments AMYLASE (test code = 2205) 41 U/L [id number] 00:00:00 Test Item Value Reference Range Interpretation Comments AMYLASE (test code = 2205) 41 U/L [id number] 00:00:00 Test Item Value Reference Range Interpretation Comments LIPASE (test code = 2057) 18 U/L [id number] 00:00:00 Test Item Value Reference Range Interpretation Comments LIPASE (test code = 2057) 18 U/L HEMOGLOBIN [id number] 05:11:03 Test Item Value Reference Range Interpretation Comments HEMOGLOBIN A1c (test 8.2 % 4.2-5.6 H AMERIC AN DIABETES code = 82394) ASSOCIATION IDELINES FOR HGB A1C: PREDIABETES/INC REASED [...] TESTING OR LABORATORY C ONSULTATION. COMPREHENSIVE METABOLIC [id number] 04:59:22 Test Item Value Reference Range Interpretation Comments GLUCOSE (test code = 216 MG/DL 70-99 H 2216) BUN (test code = 7 MG/DL 6-20 2207) CREATININE (test 0.35 MG/DL 0.60-1.30 L code = 2214) eGFR (2020 CKD-EPI) 127 >60 (test code = 12985) ML/MIN/1.73 CALC BUN/CREAT (test 20 RATIO 6-28 code = 2235) SODIUM (test code = 134 MEQ/L 111-562 3345) POTASSIUM (test code 4.0 MEQ/L 3.5-5.4 = 2227) CHLORIDE (test code 100 MEQ/L 95-107 = 2214) CARBON DIOXIDE (test 21 MEQ/L 19-31 code = 2206) CALCIUM (test code = 8.8 MG/DL 8.5-10.5 2208) PROTEIN, TOTAL (test 6.5 G/DL 6.1-8.3 code = 2229) ALBUMIN (test code = 3.7 G/DL 3.5-5.2 2200) CALC GLOBULIN (test 2.8 G/DL 1.9-3.7 code = 2240) CALC A/G RATIO (test 1.3 RATIO 1.0-2.6 code = 2234) BILIRUBIN, TOTAL <0.2 MG/DL See_Comment [Automated message] (test code = 2207) The [employer] which generated this result transmit [place] reference range : <=1.2. The refe rence range was not u sed to interpret th is result as normal/abnormal . ALKALINE PHOSPHATASE 111 U/L 40-120 (test code = 2204) AST (test code = 23 U/L 9-40 2217) ALT (test code = <5 U/L 5-40 L 2218) LIPID [id number] 04:59:22 Test Item Value Reference Range Interpretation [...] MOREINFORMATION , SEE CLIENT ANNOUNCE MENT AT [email or web address] CalcLDL-C RISK RATIO LDL/HDL 7.20 RATIO <3.22 H UNABLE T O CALCULATE (test code = 2238) UNLESS OT HERWISE INDICATED, ALL TESTING PERFORMED [facility]OLOGY [facility] [address] [place] [address] 4 LABORATORY DIRE CTOR: MARLENE STEVENS M.D. CLIA NUMBER [id number] [place]. [id number] CBC W/AUTO DIFF WITH [id number] 04:14:18 Test Item Value Reference Range Interpretation [...] RBCS 0.00 K/UL 0.00-0.11 (test code = 76329) COMPREHENSIVE METABOLIC [id number] 00:00:00 Test Item Value Reference Range Interpretation Comments GLUCOSE (test code = 2217) 216 MG/DL BUN (test code = 2208) 7 MG/DL CREATININE (test code = 2214) 0.35 MG/DL eGFR (2020 CKD-EPI) (test 127 ML/MIN/1.73 code = 08097) CALC BUN/CREAT (test code = 20 RATIO 2234) SODIUM (test code = 2231) 134 MEQ/L [...] (test code = 2219) <5 U/L HEMOGLOBIN [id number] 00:00:00 Test Item Value Reference Range Interpretation Comments HEMOGLOBIN A1c (test code = 12431) 8.2 % HEMOGLOBIN [id number] 00:00:00 Test Item Value Reference Range Interpretation Comments HEMOGLOBIN A1c (test code = 97297) 8.2 % LIPID [id number] 00:00:00 Test Item Value Reference Range Interpretation Comments CHOLESTEROL (test code = 2210) 539 MG/DL TRIGLYCERIDES (test code = 2232) 2237 MG/DL HDL CHOLESTEROL (test code = 25 MG/DL 0) CALC LDL CHOL (test code = 2237) (NOTE) MG/DL RISK RATIO LDL/HDL (test code = 7.20 RATIO 2238) CBC W/AUTO [id number] 00:00:00 Test Item Value Reference Range Interpretation [...] NUCLEATED RBCS (test code = 0.00 K/UL 26187) CBC W/AUTO [id number] 00:00:00 Test Item Value Reference Range Interpretation [...] NUCLEATED RBCS (test code = 0.00 K/UL 74745) CBC W/AUTO [id number] 00:00:00 Test Item Value Reference Range Interpretation [...] NUCLEATED RBCS (test code = 0.00 K/UL 81859) COMPREHENSIVE METABOLIC [id number] 00:00:00 Test Item Value Reference Range Interpretation Comments GLUCOSE (test code = 2217) 216 MG/DL BUN (test code = 2208) 7 MG/DL CREATININE (test code = 2214) 0.35 MG/DL eGFR (2020 CKD-EPI) (test 127 ML/MIN/1.73 code = 72493) CALC BUN/CREAT (test code = 20 RATIO [...] code = 2219) <5 U/L COMPREHENSIVE METABOLIC [id number] 00:00:00 Test Item Value Reference Range Interpretation Comments GLUCOSE (test code = 2217) 216 MG/DL BUN (test code = 2208) 7 MG/DL CREATININE (test code = 2214) 0.35 MG/DL eGFR (2020 CKD-EPI) (test 127 ML/MIN/1.73 code = 86204) CALC BUN/CREAT (test code = 20 RATIO [...] A/G RATIO (test code = 1.3 RATIO 4) BILIRUBIN, TOTAL (test code = <0.2 MG/DL 2206) ALKALINE PHOSPHATASE (test 111 U/L code = 2204) AST (test code = 2218) 23 U/L ALT (test code = 2219) <5 U/L HEMOGLOBIN [id number] 00:00:00 Test Item Value Reference Range Interpretation Comments HEMOGLOBIN A1c (test code = 18396) 8.2 % HEMOGLOBIN [id number] 00:00:00 Test Item Value Reference Range Interpretation Comments HEMOGLOBIN A1c (test code = 47043) 8.2 % HEMOGLOBIN [id number] 00:00:00 Test Item Value Reference Range Interpretation Comments HEMOGLOBIN A1c (test code = 21573) 8.2 % LIPID [id number] 00:00:00 Test Item Value Reference Range Interpretation Comments CHOLESTEROL (test code = 2210) 539 MG/DL TRIGLYCERIDES (test code = 2232) 2237 MG/DL HDL CHOLESTEROL (test code = 25 MG/DL 2219) CALC LDL CHOL (test code = 2237) (NOTE) MG/DL RISK RATIO LDL/HDL (test code = 7.20 RATIO 2238) LIPID [id number] 00:00:00 Test Item Value Reference Range Interpretation Comments CHOLESTEROL (test code = 2210) 539 MG/DL TRIGLYCERIDES (test code = 2232) 2237 MG/DL HDL CHOLESTEROL (test code = 25 MG/DL 2220) CALC LDL CHOL (test code = 2237) (NOTE) MG/DL RISK RATIO LDL/HDL (test code = 7.20 RATIO 2238) CBC W/AUTO [id number] 00:00:00 Test Item Value Reference Range Interpretation [...] NUCLEATED RBCS (test code = 0.00 K/UL 66356) CBC W/AUTO [id number] 00:00:00 Test Item Value Reference Range Interpretation [...] NUCLEATED RBCS (test code = 0.00 K/UL 91475) CBC W/AUTO [id number] 00:00:00 Test Item Value Reference Range Interpretation [...] NUCLEATED RBCS (test code = 0.00 K/UL 75794) COMPREHENSIVE METABOLIC [id number] 00:00:00 Test Item Value Reference Range Interpretation Comments GLUCOSE (test code = 2217) 216 MG/DL BUN (test code = 2208) 7 MG/DL CREATININE (test code = 2214) 0.35 MG/DL eGFR (2020 CKD-EPI) (test 127 ML/MIN/1.73 code = 80138) CALC BUN/CREAT (test code = 20 RATIO [...] code = 2219) <5 U/L COMPREHENSIVE METABOLIC [id number] 00:00:00 Test Item Value Reference Range Interpretation Comments GLUCOSE (test code = 2217) 216 MG/DL BUN (test code = 2208) 7 MG/DL CREATININE (test code = 2214) 0.35 MG/DL eGFR (2020 CKD-EPI) (test 127 ML/MIN/1.73 code = 42855) CALC BUN/CREAT (test code = 20 RATIO [...] (test code = 2219) <5 U/L HEMOGLOBIN [id number] 00:00:00 Test Item Value Reference Range Interpretation Comments HEMOGLOBIN A1c (test code = 30188) 8.2 % HEMOGLOBIN [id number] 00:00:00 Test Item Value Reference Range Interpretation Comments HEMOGLOBIN A1c (test code = 06250) 8.2 % HEMOGLOBIN [id number] 00:00:00 Test Item Value Reference Range Interpretation Comments HEMOGLOBIN A1c (test code = 07560) 8.2 % LIPID [id number] 00:00:00 Test Item Value Reference Range Interpretation Comments CHOLESTEROL (test code = 2210) 539 MG/DL TRIGLYCERIDES (test code = 2232) 2237 MG/DL HDL CHOLESTEROL (test code = 25 MG/DL 2220) CALC LDL CHOL (test code = 2237) (NOTE) MG/DL RISK RATIO LDL/HDL (test code = 7.20 RATIO 2238) LIPID [id number] 00:00:00 Test Item Value Reference Range Interpretation Comments CHOLESTEROL (test code = 2210) 539 MG/DL TRIGLYCERIDES (test code = 2232) 2237 MG/DL HDL CHOLESTEROL (test code = 25 MG/DL 2220) CALC LDL CHOL (test code = 2237) (NOTE) MG/DL RISK RATIO LDL/HDL (test code = 7.20 RATIO 2238) CBC W/AUTO [id number] 00:00:00 Test Item Value Reference Range Interpretation [...] NUCLEATED RBCS (test code = 0.00 K/UL 65989) CBC W/AUTO [id number] 00:00:00 Test Item Value Reference Range Interpretation [...] NUCLEATED RBCS (test code = 0.00 K/UL 31242) [id number] 00:00:00 Test Item Value Reference Range Interpretation Comments LIPASE (test code = 2057) 14 U/L [id number] 00:00:00 Test Item Value Reference Range Interpretation Comments LIPASE (test code = 2057) 14 U/L [id number] 00:00:00 Test Item Value Reference Range Interpretation Comments AMYLASE (test code = 2204) 44 U/L [id number] 00:00:00 Test Item Value Reference Range Interpretation Comments AMYLASE (test code = 2204) 44 U/L [id number] 00:00:00 Test Item Value Reference Range Interpretation Comments LIPASE (test code = 2057) 14 U/L [id number] 00:00:00 Test Item Value Reference Range Interpretation Comments LIPASE (test code = 2057) 14 U/L [id number] 00:00:00 Test Item Value Reference Range Interpretation Comments LIPASE (test code = 2057) 14 U/L [id number] 00:00:00 Test Item Value Reference Range Interpretation Comments AMYLASE (test code = 2204) 44 U/L [id number] 00:00:00 Test Item Value Reference Range Interpretation Comments AMYLASE (test code = 2204) 44 U/L [id number] 00:00:00 Test Item Value Reference Range Interpretation Comments LIPASE (test code = 2057) 14 U/L [id number] 00:00:00 Test Item Value Reference Range Interpretation Comments LIPASE (test code = 2057) 14 U/L [id number] 00:00:00 Test Item Value Reference Range Interpretation Comments LIPASE (test code = 2057) 14 U/L [id number] 00:00:00 Test Item Value Reference Range Interpretation Comments AMYLASE (test code = 2205) 44 U/L LIPID [id number] 00:00:00 Test Item Value Reference Range Interpretation Comments CHOLESTEROL (test code = 2210) 346 MG/DL TRIGLYCERIDES (test code = 2232) 1167 MG/DL HDL CHOLESTEROL (test code = 37 MG/DL 2220) CALC LDL CHOL (test code = 2237) (NOTE) MG/DL RISK RATIO LDL/HDL (test code = (NOTE) RATIO 2238) COMPREHENSIVE METABOLIC [id number] 00:00:00 Test Item Value Reference Range Interpretation Comments GLUCOSE (test code = 2217) 127 MG/DL BUN (test code = 2208) 7 MG/DL CREATININE (test code = 2214) 0.53 MG/DL eGFR AMER. (test code 132 ML/MIN/1.73 = 98414) eGFR NON- AMER. (test 114 ML/MIN/1.73 code = 81986) CALC BUN/CREAT (test code = 13 RATIO [...] (test code = 2219) 12 U/L LIPID [id number] 00:00:00 Test Item Value Reference Range Interpretation Comments CHOLESTEROL (test code = 2210) 346 MG/DL TRIGLYCERIDES (test code = 2232) 1167 MG/DL HDL CHOLESTEROL (test code = 37 MG/DL 2220) CALC LDL CHOL (test code = 2237) (NOTE) MG/DL RISK RATIO LDL/HDL (test code = (NOTE) RATIO 2238) LIPID [id number] 00:00:00 Test Item Value Reference Range Interpretation Comments CHOLESTEROL (test code = 2210) 346 MG/DL TRIGLYCERIDES (test code = 2232) 1167 MG/DL HDL CHOLESTEROL (test code = 37 MG/DL 2220) CALC LDL CHOL (test code = 2237) (NOTE) MG/DL RISK RATIO LDL/HDL (test code = (NOTE) RATIO 2238) COMPREHENSIVE METABOLIC [id number] 00:00:00 Test Item Value Reference Range Interpretation Comments GLUCOSE (test code = 2217) 127 MG/DL BUN (test code = 2208) 7 MG/DL CREATININE (test code = 2214) 0.53 MG/DL eGFR AMER. (test code 132 ML/MIN/1.73 = 99566) eGFR NON- AMER. (test 114 ML/MIN/1.73 code = 74838) CALC BUN/CREAT (test code = 13 RATIO [...] code = 2219) 12 U/L COMPREHENSIVE METABOLIC [id number] 00:00:00 Test Item Value Reference Range Interpretation Comments GLUCOSE (test code = 2217) 127 MG/DL BUN (test code = 2208) 7 MG/DL CREATININE (test code = 2214) 0.53 MG/DL eGFR AMER. (test code 132 ML/MIN/1.73 = 49500) eGFR NON- AMER. (test 114 ML/MIN/1.73 code = 51818) CALC BUN/CREAT (test code = 13 RATIO [...] (test code = 2219) 12 U/L LIPID [id number] 00:00:00 Test Item Value Reference Range Interpretation Comments CHOLESTEROL (test code = 2210) 346 MG/DL TRIGLYCERIDES (test code = 2232) 1167 MG/DL HDL CHOLESTEROL (test code = 37 MG/DL 2220) CALC LDL CHOL (test code = 2237) (NOTE) MG/DL RISK RATIO LDL/HDL (test code = (NOTE) RATIO 2238) LIPID [id number] 00:00:00 Test Item Value Reference Range Interpretation Comments CHOLESTEROL (test code = 2210) 346 MG/DL TRIGLYCERIDES (test code = 2232) 1167 MG/DL HDL CHOLESTEROL (test code = 37 MG/DL 2220) CALC LDL CHOL (test code = 2237) (NOTE) MG/DL RISK RATIO LDL/HDL (test code = (NOTE) RATIO 2238) COMPREHENSIVE METABOLIC [id number] 00:00:00 Test Item Value Reference Range Interpretation Comments GLUCOSE (test code = 2217) 127 MG/DL BUN (test code = 2208) 7 MG/DL CREATININE (test code = 2214) 0.53 MG/DL eGFR AMER. (test code 132 ML/MIN/1.73 = 49860) eGFR NON- AMER. (test 114 ML/MIN/1.73 code = 52939) CALC BUN/CREAT (test code = 13 RATIO [...] code = 2219) 12 U/L COMPREHENSIVE METABOLIC [id number] 00:00:00 Test Item Value Reference Range Interpretation Comments GLUCOSE (test code = 2217) 127 MG/DL BUN (test code = 2208) 7 MG/DL CREATININE (test code = 2214) 0.53 MG/DL eGFR AMER. (test code 132 ML/MIN/1.73 = 79413) eGFR NON- AMER. (test 114 ML/MIN/1.73 code = 94914) CALC BUN/CREAT (test code = 13 RATIO [...] (test code = 2219) 12 U/L HEMOGLOBIN [id number] 00:00:00 Test Item Value Reference Range Interpretation Comments HEMOGLOBIN A1c (test code = 38253) 7.8 % HEMOGLOBIN [id number] 00:00:00 Test Item Value Reference Range Interpretation Comments HEMOGLOBIN A1c (test code = 25962) 7.8 % HEMOGLOBIN [id number] 00:00:00 Test Item Value Reference Range Interpretation Comments HEMOGLOBIN A1c (test code = 33251) 7.8 % HEMOGLOBIN [id number] 00:00:00 Test Item Value Reference Range Interpretation Comments HEMOGLOBIN A1c (test code = 82377) 7.8 % HEMOGLOBIN [id number] 00:00:00 Test Item Value Reference Range Interpretation Comments HEMOGLOBIN A1c (test code = 93593) 7.8 % HEMOGLOBIN [id number] 00:00:00 Test Item Value Reference Range Interpretation Comments HEMOGLOBIN A1c (test code = 89636) 7.8 % HEMOGLOBIN [id number] 00:00:00 Test Item Value Reference Range Interpretation Comments HEMOGLOBIN A1c (test code = 85151) 7.8 % HEMOGLOBIN [id number] 00:00:00 Test Item Value Reference Range Interpretation Comments HEMOGLOBIN A1c (test code = 62904) 7.8 % CBC W/AUTO [id number] 00:00:00 Test Item Value Reference Range Interpretation [...] code = 1015) 270 K/UL CBC W/AUTO [id number] 00:00:00 Test Item Value Reference Range Interpretation [...] (test code = 1015) 270 K/UL HEMOGLOBIN [id number] 00:00:00 Test Item Value Reference Range Interpretation Comments HEMOGLOBIN A1c (test code = 81742) 8.8 % HEMOGLOBIN [id number] 00:00:00 Test Item Value Reference Range Interpretation Comments HEMOGLOBIN A1c (test code = 26460) 8.8 % COMPREHENSIVE METABOLIC [id number] 00:00:00 Test Item Value Reference Range Interpretation Comments GLUCOSE (test code = 2217) 236 MG/DL BUN (test code = 2208) 9 MG/DL CREATININE (test code = 2214) 0.47 MG/DL eGFR AMER. (test code 137 ML/MIN/1.73 = 36398) eGFR NON- AMER. (test 118 ML/MIN/1.73 code = 21942) CALC BUN/CREAT (test code = 19 RATIO [...] ALT (test code = 2219) <5 U/L [id number] 00:00:00 Test Item Value Reference Range Interpretation Comments TSH, THIRD GENERATION (test code 1.060 UIU/ML = 2821) [id number] 00:00:00 Test Item Value Reference Range Interpretation Comments TSH, THIRD GENERATION (test code 1.060 UIU/ML = 2821) MICROALBUMIN/CREATININE, RANDOM AND [id number] 00:00:00 Test Item Value Reference Range Interpretation Comments CREATININE, URINE, CONC. (test 83.5 MG/DL code = 2072) ALBUMIN, URINE, RANDOM (test code 3.0 MG/DL = 74537) CALC ALBUMIN/CREAT, RND (test code 36 MG/G = 36715) VITAMIN D, 25 [id number] 00:00:00 Test Item Value Reference Range Interpretation Comments VITAMIN D, 25 OH (test code = 4958) 12 NG/ML CBC W/AUTO [id number] 00:00:00 Test Item Value Reference Range Interpretation [...] code = 1015) 270 K/UL CBC W/AUTO [id number] 00:00:00 Test Item Value Reference Range Interpretation [...] code = 1015) 270 K/UL CBC W/AUTO [id number] 00:00:00 Test Item Value Reference Range Interpretation [...] (test code = 1015) 270 K/UL HEMOGLOBIN [id number] 00:00:00 Test Item Value Reference Range Interpretation Comments HEMOGLOBIN A1c (test code = 36643) 8.8 % HEMOGLOBIN [id number] 00:00:00 Test Item Value Reference Range Interpretation Comments HEMOGLOBIN A1c (test code = 73029) 8.8 % HEMOGLOBIN [id number] 00:00:00 Test Item Value Reference Range Interpretation Comments HEMOGLOBIN A1c (test code = 24440) 8.8 % COMPREHENSIVE METABOLIC [id number] 00:00:00 Test Item Value Reference Range Interpretation Comments GLUCOSE (test code = 2217) 236 MG/DL BUN (test code = 2208) 9 MG/DL CREATININE (test code = 2214) 0.47 MG/DL eGFR AMER. (test code 137 ML/MIN/1.73 = 61786) eGFR NON- AMER. (test 118 ML/MIN/1.73 code = 07631) CALC BUN/CREAT (test code = 19 RATIO [...] code = 2219) <5 U/L COMPREHENSIVE METABOLIC [id number] 00:00:00 Test Item Value Reference Range Interpretation Comments GLUCOSE (test code = 2217) 236 MG/DL BUN (test code = 2208) 9 MG/DL CREATININE (test code = 2214) 0.47 MG/DL eGFR AMER. (test code 137 ML/MIN/1.73 = 19352) eGFR NON- AMER. (test 118 ML/MIN/1.73 code = 40268) CALC BUN/CREAT (test code = 19 RATIO [...] ALT (test code = 2219) <5 U/L [id number] 00:00:00 Test Item Value Reference Range Interpretation Comments TSH, THIRD GENERATION (test code 1.060 UIU/ML = 2821) [id number] 00:00:00 Test Item Value Reference Range Interpretation Comments TSH, THIRD GENERATION (test code 1.060 UIU/ML = 2821) [id number] 00:00:00 Test Item Value Reference Range Interpretation Comments TSH, THIRD GENERATION (test code 1.060 UIU/ML = 2821) MICROALBUMIN/CREATININE, RANDOM AND [id number] 00:00:00 Test Item Value Reference Range Interpretation Comments CREATININE, URINE, CONC. (test 83.5 MG/DL code = 2072) ALBUMIN, URINE, RANDOM (test code 3.0 MG/DL = 59388) CALC ALBUMIN/CREAT, RND (test code 36 MG/G = 49935) MICROALBUMIN/CREATININE, RANDOM AND [id number] 00:00:00 Test Item Value Reference Range Interpretation Comments CREATININE, URINE, CONC. (test 83.5 MG/DL code = 2072) ALBUMIN, URINE, RANDOM (test code 3.0 MG/DL = 16883) CALC ALBUMIN/CREAT, RND (test code 36 MG/G = 15502) VITAMIN D, 25 [id number] 00:00:00 Test Item Value Reference Range Interpretation Comments VITAMIN D, 25 OH (test code = 4958) 12 NG/ML VITAMIN D, 25 [id number] 00:00:00 Test Item Value Reference Range Interpretation Comments VITAMIN D, 25 OH (test code = 4958) 12 NG/ML CBC W/AUTO [id number] 00:00:00 Test Item Value Reference Range Interpretation [...] code = 1015) 270 K/UL CBC W/AUTO [id number] 00:00:00 Test Item Value Reference Range Interpretation [...] code = 1015) 270 K/UL CBC W/AUTO [id number] 00:00:00 Test Item Value Reference Range Interpretation [...] (test code = 1015) 270 K/UL HEMOGLOBIN [id number] 00:00:00 Test Item Value Reference Range Interpretation Comments HEMOGLOBIN A1c (test code = 06381) 8.8 % HEMOGLOBIN [id number] 00:00:00 Test Item Value Reference Range Interpretation Comments HEMOGLOBIN A1c (test code = 34806) 8.8 % HEMOGLOBIN [id number] 00:00:00 Test Item Value Reference Range Interpretation Comments HEMOGLOBIN A1c (test code = 30804) 8.8 % COMPREHENSIVE METABOLIC [id number] 00:00:00 Test Item Value Reference Range Interpretation Comments GLUCOSE (test code = 2217) 236 MG/DL BUN (test code = 2208) 9 MG/DL CREATININE (test code = 2214) 0.47 MG/DL eGFR AMER. (test code 137 ML/MIN/1.73 = 86296) eGFR NON- AMER. (test 118 ML/MIN/1.73 code = 16512) CALC BUN/CREAT (test code = 19 RATIO [...] code = 2219) <5 U/L COMPREHENSIVE METABOLIC [id number] 00:00:00 Test Item Value Reference Range Interpretation Comments GLUCOSE (test code = 2217) 236 MG/DL BUN (test code = 2208) 9 MG/DL CREATININE (test code = 2214) 0.47 MG/DL eGFR AMER. (test code 137 ML/MIN/1.73 = 33810) eGFR NON- AMER. (test 118 ML/MIN/1.73 code = 91876) CALC BUN/CREAT (test code = 19 RATIO [...] ALT (test code = 2219) <5 U/L [id number] 00:00:00 Test Item Value Reference Range Interpretation Comments TSH, THIRD GENERATION (test code 1.060 UIU/ML = 2821) [id number] 00:00:00 Test Item Value Reference Range Interpretation Comments TSH, THIRD GENERATION (test code 1.060 UIU/ML = 2821) [id number] 00:00:00 Test Item Value Reference Range Interpretation Comments TSH, THIRD GENERATION (test code 1.060 UIU/ML = 2821) MICROALBUMIN/CREATININE, RANDOM AND [id number] 00:00:00 Test Item Value Reference Range Interpretation Comments CREATININE, URINE, CONC. (test 83.5 MG/DL code = 2072) ALBUMIN, URINE, RANDOM (test code 3.0 MG/DL = 23889) CALC ALBUMIN/CREAT, RND (test code 36 MG/G = 36673) MICROALBUMIN/CREATININE, RANDOM AND [id number] 00:00:00 Test Item Value Reference Range Interpretation Comments CREATININE, URINE, CONC. (test 83.5 MG/DL code = 2072) ALBUMIN, URINE, RANDOM (test code 3.0 MG/DL = 81950) CALC ALBUMIN/CREAT, RND (test code 36 MG/G = 46510) VITAMIN D, 25 [id number] 00:00:00 Test Item Value Reference Range Interpretation Comments VITAMIN D, 25 OH (test code = 4958) 12 NG/ML VITAMIN D, 25 [id number] 00:00:00 Test Item Value Reference Range Interpretation Comments VITAMIN D, 25 OH (test code = 4958) 12 NG/ML SARS-CoV-2 (COVID-19) by RT-PCR (HIGH RISK)2020-03-24 00:00:00 Test Item Value Reference Range Interpretation Comments SARS-CoV-2 INTERPRETATION (test NEGATIVE code = 36630) SOURCE (test code = 54073) NOT SPECIFIED SARS-CoV-2 (COVID-19) by RT-PCR (HIGH RISK)2020-03-24 00:00:00 Test Item Value Reference Range Interpretation Comments SARS-CoV-2 INTERPRETATION (test NEGATIVE code = 99584) SOURCE (test code = 08004) NOT SPECIFIED SARS-CoV-2 (COVID-19) by RT-PCR (HIGH RISK)2020-03-24 00:00:00 Test Item Value Reference Range Interpretation Comments SARS-CoV-2 INTERPRETATION (test NEGATIVE code = 44151) SOURCE (test code = 54693) NOT SPECIFIED SARS-CoV-2 (COVID-19) by RT-PCR (HIGH RISK)2020-03-24 00:00:00 Test Item Value Reference Range Interpretation Comments SARS-CoV-2 INTERPRETATION (test NEGATIVE code = 12359) SOURCE (test code = 29178) NOT SPECIFIED SARS-CoV-2 (COVID-19) by RT-PCR (HIGH RISK)2020-03-24 00:00:00 Test Item Value Reference Range Interpretation Comments SARS-CoV-2 INTERPRETATION (test NEGATIVE code = 70887) SOURCE (test code = 29186) NOT SPECIFIED LIPID [id number] 00:00:00 Test Item Value Reference Range Interpretation Comments CHOLESTEROL (test code = 2210) 235 MG/DL TRIGLYCERIDES (test code = 2232) 420 MG/DL HDL CHOLESTEROL (test code = 42 MG/DL 2220) CALC LDL CHOL (test code = 2237) (NOTE) MG/DL RISK RATIO LDL/HDL (test code = (NOTE) RATIO 2238) LIPID [id number] 00:00:00 Test Item Value Reference Range Interpretation Comments CHOLESTEROL (test code = 2210) 235 MG/DL TRIGLYCERIDES (test code = 2232) 420 MG/DL HDL CHOLESTEROL (test code = 42 MG/DL 2220) CALC LDL CHOL (test code = 2237) (NOTE) MG/DL RISK RATIO LDL/HDL (test code = (NOTE) RATIO 2238) LIPID [id number] 00:00:00 Test Item Value Reference Range Interpretation Comments CHOLESTEROL (test code = 2210) 235 MG/DL TRIGLYCERIDES (test code = 2232) 420 MG/DL HDL CHOLESTEROL (test code = 42 MG/DL 2220) CALC LDL CHOL (test code = 2237) (NOTE) MG/DL RISK RATIO LDL/HDL (test code = (NOTE) RATIO 2238) LIPID [id number] 00:00:00 Test Item Value Reference Range Interpretation Comments CHOLESTEROL (test code = 2210) 235 MG/DL TRIGLYCERIDES (test code = 2232) 420 MG/DL HDL CHOLESTEROL (test code = 42 MG/DL 2220) CALC LDL CHOL (test code = 2237) (NOTE) MG/DL RISK RATIO LDL/HDL (test code = (NOTE) RATIO 2238) LIPID [id number] 00:00:00 Test Item Value Reference Range Interpretation Comments CHOLESTEROL (test code = 2210) 235 MG/DL TRIGLYCERIDES (test code = 2232) 420 MG/DL HDL CHOLESTEROL (test code = 42 MG/DL 2220) CALC LDL CHOL (test code = 2237) (NOTE) MG/DL RISK RATIO LDL/HDL (test code = (NOTE) RATIO 2238) LIPID [id number] 00:00:00 Test Item Value Reference Range Interpretation Comments CHOLESTEROL (test code = 2210) 500 MG/DL TRIGLYCERIDES (test code = 2232) 2793 MG/DL HDL CHOLESTEROL (test code = 25 MG/DL 2220) CALC LDL CHOL (test code = 2237) (NOTE) MG/DL RISK RATIO LDL/HDL (test code = (NOTE) RATIO 2238) COMPREHENSIVE METABOLIC [id number] 00:00:00 Test Item Value Reference Range Interpretation Comments GLUCOSE (test code = 2217) 287 MG/DL BUN (test code = 2208) 7 MG/DL CREATININE (test code = 2214) 0.57 MG/DL eGFR AMER. (test code 129 ML/MIN/1.73 = 07955) eGFR NON- AMER. (test 111 ML/MIN/1.73 code = 56459) CALC BUN/CREAT (test code = 12 RATIO 2235) SODIUM (test code = 2231) 133 MEQ/L POTASSIUM (test code = 2228) 4.5 MEQ/L CHLORIDE (test code = 2215) 96 MEQ/L CARBON DIOXIDE (test code = 24 MEQ/L 2206) CALCIUM (test code = 2209) 10.0 MG/DL PROTEIN, TOTAL (test code = 7.5 G/DL 2228) ALBUMIN (test code = 2201) 4.6 G/DL CALC GLOBULIN (test code = 2.9 G/DL 0) CALC A/G RATIO (test code = 1.6 RATIO 2234) BILIRUBIN, TOTAL (test code = 0.4 MG/DL 2206) ALKALINE PHOSPHATASE (test 103 U/L code = 2204) AST (test code = 2218) 30 U/L ALT (test code = 2219) <5 U/L HEMOGLOBIN [id number] 00:00:00 Test Item Value Reference Range Interpretation Comments HEMOGLOBIN A1c (test code = 88064) 9.2 % HEMOGLOBIN [id number] 00:00:00 Test Item Value Reference Range Interpretation Comments HEMOGLOBIN A1c (test code = 13044) 9.2 % HEMOGLOBIN [id number] 00:00:00 Test Item Value Reference Range Interpretation Comments HEMOGLOBIN A1c (test code = 16389) 9.2 % LIPID [id number] 00:00:00 Test Item Value Reference Range Interpretation Comments CHOLESTEROL (test code = 2210) 500 MG/DL TRIGLYCERIDES (test code = 2232) 2793 MG/DL HDL CHOLESTEROL (test code = 25 MG/DL 2220) CALC LDL CHOL (test code = 2237) (NOTE) MG/DL RISK RATIO LDL/HDL (test code = (NOTE) RATIO 2238) LIPID [id number] 00:00:00 Test Item Value Reference Range Interpretation Comments CHOLESTEROL (test code = 2210) 500 MG/DL TRIGLYCERIDES (test code = 2232) 2793 MG/DL HDL CHOLESTEROL (test code = 25 MG/DL 2220) CALC LDL CHOL (test code = 2237) (NOTE) MG/DL RISK RATIO LDL/HDL (test code = (NOTE) RATIO 2238) COMPREHENSIVE METABOLIC [id number] 00:00:00 Test Item Value Reference Range Interpretation Comments GLUCOSE (test code = 2217) 287 MG/DL BUN (test code = 2208) 7 MG/DL CREATININE (test code = 2214) 0.57 MG/DL eGFR AMER. (test code 129 ML/MIN/1.73 = 50776) eGFR NON- AMER. (test 111 ML/MIN/1.73 code = 10266) CALC BUN/CREAT (test code = 12 RATIO [...] code = 2219) <5 U/L COMPREHENSIVE METABOLIC [id number] 00:00:00 Test Item Value Reference Range Interpretation Comments GLUCOSE (test code = 2217) 287 MG/DL BUN (test code = 2208) 7 MG/DL CREATININE (test code = 2214) 0.57 MG/DL eGFR AMER. (test code 129 ML/MIN/1.73 = 33449) eGFR NON- AMER. (test 111 ML/MIN/1.73 code = 63559) CALC BUN/CREAT (test code = 12 RATIO [...] (test code = 2219) <5 U/L HEMOGLOBIN [id number] 00:00:00 Test Item Value Reference Range Interpretation Comments HEMOGLOBIN A1c (test code = 39111) 9.2 % HEMOGLOBIN [id number] 00:00:00 Test Item Value Reference Range Interpretation Comments HEMOGLOBIN A1c (test code = 34207) 9.2 % HEMOGLOBIN [id number] 00:00:00 Test Item Value Reference Range Interpretation Comments HEMOGLOBIN A1c (test code = 68700) 9.2 % LIPID [id number] 00:00:00 Test Item Value Reference Range Interpretation Comments CHOLESTEROL (test code = 2210) 500 MG/DL TRIGLYCERIDES (test code = 2232) 2793 MG/DL HDL CHOLESTEROL (test code = 25 MG/DL 2220) CALC LDL CHOL (test code = 2237) (NOTE) MG/DL RISK RATIO LDL/HDL (test code = (NOTE) RATIO 2238) LIPID [id number] 00:00:00 Test Item Value Reference Range Interpretation Comments CHOLESTEROL (test code = 2210) 500 MG/DL TRIGLYCERIDES (test code = 2232) 2793 MG/DL HDL CHOLESTEROL (test code = 25 MG/DL 2220) CALC LDL CHOL (test code = 2237) (NOTE) MG/DL RISK RATIO LDL/HDL (test code = (NOTE) RATIO 2238) COMPREHENSIVE METABOLIC [id number] 00:00:00 Test Item Value Reference Range Interpretation Comments GLUCOSE (test code = 2217) 287 MG/DL BUN (test code = 2208) 7 MG/DL CREATININE (test code = 2214) 0.57 MG/DL eGFR AMER. (test code 129 ML/MIN/1.73 = 16111) eGFR NON- AMER. (test 111 ML/MIN/1.73 code = 38142) CALC BUN/CREAT (test code = 12 RATIO [...] code = 2219) <5 U/L COMPREHENSIVE METABOLIC [id number] 00:00:00 Test Item Value Reference Range Interpretation Comments GLUCOSE (test code = 2217) 287 MG/DL BUN (test code = 2208) 7 MG/DL CREATININE (test code = 2214) 0.57 MG/DL eGFR AMER. (test code 129 ML/MIN/1.73 = 34061) eGFR NON- AMER. (test 111 ML/MIN/1.73 code = 09788) CALC BUN/CREAT (test code = 12 RATIO [...] (test code = 2219) <5 U/L HEMOGLOBIN [id number] 00:00:00 Test Item Value Reference Range Interpretation Comments HEMOGLOBIN A1c (test code = 06571) 9.2 % HEMOGLOBIN [id number] 00:00:00 Test Item Value Reference Range Interpretation Comments HEMOGLOBIN A1c (test code = 51088) 9.2 % SARS-CoV-2 (COVID-19) by RT-PCR (HIGH RISK)2019-12-14 00:00:00 Test Item Value Reference Range Interpretation Comments SARS-CoV-2 INTERPRETATION Positive (test code = 48236) SOURCE (test code = 32940) NASOPHARYNGEAL_SWAB _IN_VTM__UTM SARS-CoV-2 (COVID-19) by RT-PCR (HIGH RISK)2019-12-14 00:00:00 Test Item Value Reference Range Interpretation Comments SARS-CoV-2 INTERPRETATION Positive (test code = 74386) SOURCE (test code = 50174) NASOPHARYNGEAL_SWAB _IN_VTM__UTM SARS-CoV-2 (COVID-19) by RT-PCR (HIGH RISK)2019-12-14 00:00:00 Test Item Value Reference Range Interpretation Comments SARS-CoV-2 INTERPRETATION Positive (test code = 03679) SOURCE (test code = 61983) NASOPHARYNGEAL_SWAB _IN_VTM__UTM SARS-CoV-2 (COVID-19) by RT-PCR (HIGH RISK)2019-12-01 00:00:00 Test Item Value Reference Range Interpretation Comments SARS-CoV-2 INTERPRETATION Positive (test code = 06075) SOURCE (test code = 89341) Nasal_Swab_in_VTM__ UTM SARS-CoV-2 (COVID-19) by RT-PCR (HIGH RISK)2019-12-01 00:00:00 Test Item Value Reference Range Interpretation Comments SARS-CoV-2 INTERPRETATION Positive (test code = 12366) SOURCE (test code = 98707) Nasal_Swab_in_VTM__ UTM SARS-CoV-2 (COVID-19) by RT-PCR (HIGH RISK)2019-12-01 00:00:00 Test Item Value Reference Range Interpretation Comments SARS-CoV-2 INTERPRETATION Positive (test code = 12732) SOURCE (test code = 15613) Nasal_Swab_in_VTM__ UTM SARS-CoV-2 (COVID-19) by RT-PCR (HIGH RISK)2019-09-01 00:00:00 Test Item Value Reference Range Interpretation Comments SARS-CoV-2 INTERPRETATION (test NEGATIVE code = 68728) SOURCE (test code = 30625) NOT SPECIFIED SARS-CoV-2 (COVID-19) by RT-PCR (HIGH RISK)2019-09-01 00:00:00 Test Item Value Reference Range Interpretation Comments SARS-CoV-2 INTERPRETATION (test NEGATIVE code = 29690) SOURCE (test code = 20241) NOT SPECIFIED SARS-CoV-2 (COVID-19) by RT-PCR (HIGH RISK)2019-09-01 00:00:00 Test Item Value Reference Range Interpretation Comments SARS-CoV-2 INTERPRETATION (test NEGATIVE code = 29938) SOURCE (test code = 99387) NOT SPECIFIED SARS-CoV-2 (COVID-19) by RT-PCR (HIGH RISK)2019-09-01 00:00:00 Test Item Value Reference Range Interpretation Comments SARS-CoV-2 INTERPRETATION (test NEGATIVE code = 45571) SOURCE (test code = 01668) NOT SPECIFIED SARS-CoV-2 (COVID-19) by RT-PCR (HIGH RISK)2019-09-01 00:00:00 Test Item Value Reference Range Interpretation Comments SARS-CoV-2 INTERPRETATION (test NEGATIVE code = 81634) SOURCE (test code = 23762) NOT SPECIFIED HEMOGLOBIN [id number] 00:00:00 Test Item Value Reference Range Interpretation Comments HEMOGLOBIN A1c (test code = 47339) 8.1 % LIPID [id number] 00:00:00 Test Item Value Reference Range Interpretation Comments CHOLESTEROL (test code = 2210) 336 MG/DL TRIGLYCERIDES (test code = 2232) 1678 MG/DL HDL CHOLESTEROL (test code = 28 MG/DL 2219) CALC LDL CHOL (test code = 2237) (NOTE) MG/DL RISK RATIO LDL/HDL (test code = (NOTE) RATIO 2238) COMPREHENSIVE METABOLIC [id number] 00:00:00 Test Item Value Reference Range Interpretation Comments GLUCOSE (test code = 2217) 175 MG/DL BUN (test code = 2208) 8 MG/DL CREATININE (test code = 2214) 0.53 MG/DL eGFR AMER. (test code 133 ML/MIN/1.73 = 14495) eGFR NON- AMER. (test 115 ML/MIN/1.73 code = 46172) CALC BUN/CREAT (test code = 15 RATIO [...] (test code = 2219) 25 U/L HEMOGLOBIN [id number] 00:00:00 Test Item Value Reference Range Interpretation Comments HEMOGLOBIN A1c (test code = 48574) 8.1 % HEMOGLOBIN [id number] 00:00:00 Test Item Value Reference Range Interpretation Comments HEMOGLOBIN A1c (test code = 50603) 8.1 % HEMOGLOBIN [id number] 00:00:00 Test Item Value Reference Range Interpretation Comments HEMOGLOBIN A1c (test code = 29885) 8.1 % LIPID [id number] 00:00:00 Test Item Value Reference Range Interpretation Comments CHOLESTEROL (test code = 2210) 336 MG/DL TRIGLYCERIDES (test code = 2232) 1678 MG/DL HDL CHOLESTEROL (test code = 28 MG/DL 2220) CALC LDL CHOL (test code = 2237) (NOTE) MG/DL RISK RATIO LDL/HDL (test code = (NOTE) RATIO 2238) LIPID [id number] 00:00:00 Test Item Value Reference Range Interpretation Comments CHOLESTEROL (test code = 2210) 336 MG/DL TRIGLYCERIDES (test code = 2232) 1678 MG/DL HDL CHOLESTEROL (test code = 28 MG/DL 2220) CALC LDL CHOL (test code = 2237) (NOTE) MG/DL RISK RATIO LDL/HDL (test code = (NOTE) RATIO 2238) COMPREHENSIVE METABOLIC [id number] 00:00:00 Test Item Value Reference Range Interpretation Comments GLUCOSE (test code = 2217) 175 MG/DL BUN (test code = 2208) 8 MG/DL CREATININE (test code = 2214) 0.53 MG/DL eGFR AMER. (test code 133 ML/MIN/1.73 = 65352) eGFR NON- AMER. (test 115 ML/MIN/1.73 code = 30062) CALC BUN/CREAT (test code = 15 RATIO 2235) SODIUM (test code = 2231) 136 MEQ/L POTASSIUM (test code = 2228) 4.2 MEQ/L CHLORIDE (test code = 2215) 99 MEQ/L CARBON DIOXIDE (test code = 24 MEQ/L 6) CALCIUM (test code = 2209) 9.5 MG/DL [...] code = 2219) 25 U/L COMPREHENSIVE METABOLIC [id number] 00:00:00 Test Item Value Reference Range Interpretation Comments GLUCOSE (test code = 2217) 175 MG/DL BUN (test code = 2208) 8 MG/DL CREATININE (test code = 2214) 0.53 MG/DL eGFR AMER. (test code 133 ML/MIN/1.73 = 42507) eGFR NON- AMER. (test 115 ML/MIN/1.73 code = 86902) CALC BUN/CREAT (test code = 15 RATIO [...] BILIRUBIN, TOTAL (test code = 0.3 MG/DL 7) ALKALINE PHOSPHATASE (test 87 U/L code = 2204) AST (test code = 2218) 21 U/L ALT (test code = 2219) 25 U/L HEMOGLOBIN [id number] 00:00:00 Test Item Value Reference Range Interpretation Comments HEMOGLOBIN A1c (test code = 42265) 8.1 % HEMOGLOBIN [id number] 00:00:00 Test Item Value Reference Range Interpretation Comments HEMOGLOBIN A1c (test code = 87374) 8.1 % HEMOGLOBIN [id number] 00:00:00 Test Item Value Reference Range Interpretation Comments HEMOGLOBIN A1c (test code = 14254) 8.1 % LIPID [id number] 00:00:00 Test Item Value Reference Range Interpretation Comments CHOLESTEROL (test code = 2210) 336 MG/DL TRIGLYCERIDES (test code = 2232) 1678 MG/DL HDL CHOLESTEROL (test code = 28 MG/DL 2220) CALC LDL CHOL (test code = 2237) (NOTE) MG/DL RISK RATIO LDL/HDL (test code = (NOTE) RATIO 2238) LIPID [id number] 00:00:00 Test Item Value Reference Range Interpretation Comments CHOLESTEROL (test code = 2210) 336 MG/DL TRIGLYCERIDES (test code = 2232) 1678 MG/DL HDL CHOLESTEROL (test code = 28 MG/DL 2220) CALC LDL CHOL (test code = 2237) (NOTE) MG/DL RISK RATIO LDL/HDL (test code = (NOTE) RATIO 2238) COMPREHENSIVE METABOLIC [id number] 00:00:00 Test Item Value Reference Range Interpretation Comments GLUCOSE (test code = 2217) 175 MG/DL BUN (test code = 2208) 8 MG/DL CREATININE (test code = 2214) 0.53 MG/DL eGFR AMER. (test code 133 ML/MIN/1.73 = 95114) eGFR NON- AMER. (test 115 ML/MIN/1.73 code = 32745) CALC BUN/CREAT (test code = 15 RATIO 2235) SODIUM (test code = 2231) 136 MEQ/L POTASSIUM (test code = 2228) 4.2 MEQ/L CHLORIDE (test code = 2215) 99 MEQ/L CARBON DIOXIDE (test code = 24 MEQ/L 6) CALCIUM (test code = 2209) 9.5 MG/DL PROTEIN, TOTAL (test code = 6.7 G/DL 2228) ALBUMIN (test code = 2201) 4.2 G/DL CALC GLOBULIN (test code = 2.5 G/DL 2240) CALC A/G RATIO (test code = 1.7 RATIO 2234) BILIRUBIN, TOTAL (test code = 0.3 MG/DL 7) ALKALINE PHOSPHATASE (test 87 U/L code = 2204) AST (test code = 2218) 21 U/L ALT (test code = 2219) 25 U/L COMPREHENSIVE METABOLIC [id number] 00:00:00 Test Item Value Reference Range Interpretation Comments GLUCOSE (test code = 2217) 175 MG/DL BUN (test code = 2208) 8 MG/DL CREATININE (test code = 2214) 0.53 MG/DL eGFR AMER. (test code 133 ML/MIN/1.73 = 23147) eGFR NON- AMER. (test 115 ML/MIN/1.73 code = 93898) CALC BUN/CREAT (test code = 15 RATIO [...] (test code = 2219) 25 U/L HEMOGLOBIN [id number] 00:00:00 Test Item Value Reference Range Interpretation Comments HEMOGLOBIN A1c (test code = 30957) 8.1 % COMPREHENSIVE METABOLIC [id number] 00:00:00 Test Item Value Reference Range Interpretation Comments GLUCOSE (test code = 2217) 286 MG/DL BUN (test code = 2208) 9 MG/DL CREATININE (test code = 2214) 0.56 MG/DL eGFR AMER. (test code 131 ML/MIN/1.73 = 15520) eGFR NON- AMER. (test 113 ML/MIN/1.73 code = 45374) CALC BUN/CREAT (test code = 16 RATIO 2235) SODIUM (test code = 2231) 137 MEQ/L POTASSIUM (test code = 2228) 4.3 MEQ/L CHLORIDE (test code = 2215) 96 MEQ/L CARBON DIOXIDE (test code = 27 MEQ/L 220) CALCIUM (test code = 2209) 9.1 MG/DL [...] code = 2219) <5 U/L COMPREHENSIVE METABOLIC [id number] 00:00:00 Test Item Value Reference Range Interpretation Comments GLUCOSE (test code = 2217) 286 MG/DL BUN (test code = 2208) 9 MG/DL CREATININE (test code = 2214) 0.56 MG/DL eGFR AMER. (test code 131 ML/MIN/1.73 = 82675) eGFR NON- AMER. (test 113 ML/MIN/1.73 code = 43476) CALC BUN/CREAT (test code = 16 RATIO [...] code = 2219) <5 U/L COMPREHENSIVE METABOLIC [id number] 00:00:00 Test Item Value Reference Range Interpretation Comments GLUCOSE (test code = 2217) 286 MG/DL BUN (test code = 2208) 9 MG/DL CREATININE (test code = 2214) 0.56 MG/DL eGFR AMER. (test code 131 ML/MIN/1.73 = 40236) eGFR NON- AMER. (test 113 ML/MIN/1.73 code = 10785) CALC BUN/CREAT (test code = 16 RATIO [...] code = 2219) <5 U/L COMPREHENSIVE METABOLIC [id number] 00:00:00 Test Item Value Reference Range Interpretation Comments GLUCOSE (test code = 2217) 286 MG/DL BUN (test code = 2208) 9 MG/DL CREATININE (test code = 2214) 0.56 MG/DL eGFR AMER. (test code 131 ML/MIN/1.73 = 43488) eGFR NON- AMER. (test 113 ML/MIN/1.73 code = 02715) CALC BUN/CREAT (test code = 16 RATIO 2235) SODIUM (test code = 2231) 137 MEQ/L POTASSIUM (test code = 2228) 4.3 MEQ/L CHLORIDE (test code = 2215) 96 MEQ/L CARBON DIOXIDE (test code = 27 MEQ/L 220) CALCIUM (test code = 2209) 9.1 MG/DL [...] code = 2219) <5 U/L COMPREHENSIVE METABOLIC [id number] 00:00:00 Test Item Value Reference Range Interpretation Comments GLUCOSE (test code = 2217) 286 MG/DL BUN (test code = 2208) 9 MG/DL CREATININE (test code = 2214) 0.56 MG/DL eGFR AMER. (test code 131 ML/MIN/1.73 = 19861) eGFR NON- AMER. (test 113 ML/MIN/1.73 code = 68429) CALC BUN/CREAT (test code = 16 RATIO [...] = 2219) <5 U/L MICROALBUMIN/CREATININE, RANDOM AND [id number] 00:00:00 Test Item Value Reference Range Interpretation Comments CREATININE, URINE, CONC. (test 112.4 MG/DL code = 2072) ALBUMIN, URINE, RANDOM (test code 9.2 MG/DL = 21522) CALC ALBUMIN/CREAT, RND (test 82 MG/G code = 39476) HEMOGLOBIN [id number] 00:00:00 Test Item Value Reference Range Interpretation Comments HEMOGLOBIN A1c (test code = 60994) 7.5 % HEMOGLOBIN [id number] 00:00:00 Test Item Value Reference Range Interpretation Comments HEMOGLOBIN A1c (test code = 32347) 7.5 % HEMOGLOBIN [id number] 00:00:00 Test Item Value Reference Range Interpretation Comments HEMOGLOBIN A1c (test code = 69979) 7.5 % MICROALBUMIN/CREATININE, RANDOM AND [id number] 00:00:00 Test Item Value Reference Range Interpretation Comments CREATININE, URINE, CONC. (test 112.4 MG/DL code = 2072) ALBUMIN, URINE, RANDOM (test code 9.2 MG/DL = 29428) CALC ALBUMIN/CREAT, RND (test 82 MG/G code = 46797) MICROALBUMIN/CREATININE, RANDOM AND [id number] 00:00:00 Test Item Value Reference Range Interpretation Comments CREATININE, URINE, CONC. (test 112.4 MG/DL code = 2072) ALBUMIN, URINE, RANDOM (test code 9.2 MG/DL = 30914) CALC ALBUMIN/CREAT, RND (test 82 MG/G code = 15327) HEMOGLOBIN [id number] 00:00:00 Test Item Value Reference Range Interpretation Comments HEMOGLOBIN A1c (test code = 79370) 7.5 % HEMOGLOBIN [id number] 00:00:00 Test Item Value Reference Range Interpretation Comments HEMOGLOBIN A1c (test code = 01667) 7.5 % HEMOGLOBIN [id number] 00:00:00 Test Item Value Reference Range Interpretation Comments HEMOGLOBIN A1c (test code = 95684) 7.5 % MICROALBUMIN/CREATININE, RANDOM AND [id number] 00:00:00 Test Item Value Reference Range Interpretation Comments CREATININE, URINE, CONC. (test 112.4 MG/DL code = 2072) ALBUMIN, URINE, RANDOM (test code 9.2 MG/DL = 36740) CALC ALBUMIN/CREAT, RND (test 82 MG/G code = 73387) MICROALBUMIN/CREATININE, RANDOM AND [id number] 00:00:00 Test Item Value Reference Range Interpretation Comments CREATININE, URINE, CONC. (test 112.4 MG/DL code = 2072) ALBUMIN, URINE, RANDOM (test code 9.2 MG/DL = 64082) CALC ALBUMIN/CREAT, RND (test 82 MG/G code = 58778) HEMOGLOBIN [id number] 00:00:00 Test Item Value Reference Range Interpretation Comments HEMOGLOBIN A1c (test code = 88951) 7.5 % HEMOGLOBIN [id number] 00:00:00 Test Item Value Reference Range Interpretation Comments HEMOGLOBIN A1c (test code = 45543) 7.5 % HEMOGLOBIN [id number] 00:00:00 Test Item Value Reference Range Interpretation Comments HEMOGLOBIN A1c (test code = 26304) 8.2 % HEMOGLOBIN [id number] 00:00:00 Test Item Value Reference Range Interpretation Comments HEMOGLOBIN A1c (test code = 80040) 8.2 % MICROALBUMIN/CREATININE, RANDOM AND [id number] 00:00:00 Test Item Value Reference Range Interpretation Comments CREATININE, URINE, CONC. (test 95.3 MG/DL code = 2072) ALBUMIN, URINE, RANDOM (test code 15.6 MG/DL = 53836) CALC ALBUMIN/CREAT, RND (test code 164 MG/G = 18127) HEMOGLOBIN [id number] 00:00:00 Test Item Value Reference Range Interpretation Comments HEMOGLOBIN A1c (test code = 32945) 8.2 % HEMOGLOBIN [id number] 00:00:00 Test Item Value Reference Range Interpretation Comments HEMOGLOBIN A1c (test code = 78423) 8.2 % HEMOGLOBIN [id number] 00:00:00 Test Item Value Reference Range Interpretation Comments HEMOGLOBIN A1c (test code = 57613) 8.2 % MICROALBUMIN/CREATININE, RANDOM AND [id number] 00:00:00 Test Item Value Reference Range Interpretation Comments CREATININE, URINE, CONC. (test 95.3 MG/DL code = 2072) ALBUMIN, URINE, RANDOM (test code 15.6 MG/DL = 92051) CALC ALBUMIN/CREAT, RND (test code 164 MG/G = 55666) MICROALBUMIN/CREATININE, RANDOM AND [id number] 00:00:00 Test Item Value Reference Range Interpretation Comments CREATININE, URINE, CONC. (test 95.3 MG/DL code = 2072) ALBUMIN, URINE, RANDOM (test code 15.6 MG/DL = 25118) CALC ALBUMIN/CREAT, RND (test code 164 MG/G = 29246) HEMOGLOBIN [id number] 00:00:00 Test Item Value Reference Range Interpretation Comments HEMOGLOBIN A1c (test code = 50703) 8.2 % HEMOGLOBIN [id number] 00:00:00 Test Item Value Reference Range Interpretation Comments HEMOGLOBIN A1c (test code = 77067) 8.2 % HEMOGLOBIN [id number] 00:00:00 Test Item Value Reference Range Interpretation Comments HEMOGLOBIN A1c (test code = 86024) 8.2 % MICROALBUMIN/CREATININE, RANDOM AND [id number] 00:00:00 Test Item Value Reference Range Interpretation Comments CREATININE, URINE, CONC. (test 95.3 MG/DL code = 2072) ALBUMIN, URINE, RANDOM (test code 15.6 MG/DL = 54757) CALC ALBUMIN/CREAT, RND (test code 164 MG/G = 81230) MICROALBUMIN/CREATININE, RANDOM AND [id number] 00:00:00 Test Item Value Reference Range Interpretation Comments CREATININE, URINE, CONC. (test 95.3 MG/DL code = 2072) ALBUMIN, URINE, RANDOM (test code 15.6 MG/DL = 04809) CALC ALBUMIN/CREAT, RND (test code 164 MG/G = 53246) LIPID [id number] 00:00:00 Test Item Value Reference Range Interpretation Comments CHOLESTEROL (test code = 2210) 242 MG/DL TRIGLYCERIDES (test code = 2232) 721 MG/DL HDL CHOLESTEROL (test code = 41 MG/DL 2220) CALC LDL CHOL (test code = 2237) NOTE MG/DL RISK RATIO LDL/HDL (test code = (NOTE) RATIO 2238) HEMOGLOBIN [id number] 00:00:00 Test Item Value Reference Range Interpretation Comments HEMOGLOBIN A1c (test code = 32399) 7.0 % HEMOGLOBIN [id number] 00:00:00 Test Item Value Reference Range Interpretation Comments HEMOGLOBIN A1c (test code = 74757) 7.0 % COMPREHENSIVE METABOLIC [id number] 00:00:00 Test Item Value Reference Range Interpretation Comments GLUCOSE (test code = 2217) 188 MG/DL BUN (test code = 2208) 8 MG/DL CREATININE (test code = 2214) 0.47 MG/DL eGFR AMER. (test code 139 ML/MIN/1.73 = 06171) eGFR NON- AMER. (test 120 ML/MIN/1.73 code = 86799) CALC BUN/CREAT (test code = 17 RATIO 2235) SODIUM (test code = 2231) 137 MEQ/L POTASSIUM (test code = 2228) 4.6 MEQ/L CHLORIDE (test code = 2215) 101 MEQ/L CARBON DIOXIDE (test code = 24 MEQ/L 220) CALCIUM (test code = 2209) 9.4 MG/DL PROTEIN, TOTAL (test code = 6.9 G/DL 2228) ALBUMIN (test code = 2201) 4.3 G/DL CALC GLOBULIN (test code = 2.6 G/DL 2240) CALC A/G RATIO (test code = 1.7 RATIO 2234) BILIRUBIN, TOTAL (test code = 0.2 MG/DL 220) ALKALINE PHOSPHATASE (test 79 U/L code = 2204) AST (test code = 2218) 13 U/L ALT (test code = 2219) 11 U/L COMPREHENSIVE METABOLIC [id number] 00:00:00 Test Item Value Reference Range Interpretation Comments GLUCOSE (test code = 2217) 188 MG/DL BUN (test code = 2208) 8 MG/DL CREATININE (test code = 2214) 0.47 MG/DL eGFR AMER. (test code 139 ML/MIN/1.73 = 18911) eGFR NON- AMER. (test 120 ML/MIN/1.73 code = 95312) CALC BUN/CREAT (test code = 17 RATIO [...] (test code = 2219) 11 U/L LIPID [id number] 00:00:00 Test Item Value Reference Range Interpretation Comments CHOLESTEROL (test code = 2210) 242 MG/DL TRIGLYCERIDES (test code = 2232) 721 MG/DL HDL CHOLESTEROL (test code = 41 MG/DL 2220) CALC LDL CHOL (test code = 2237) NOTE MG/DL RISK RATIO LDL/HDL (test code = (NOTE) RATIO 2238) LIPID [id number] 00:00:00 Test Item Value Reference Range Interpretation Comments CHOLESTEROL (test code = 2210) 242 MG/DL TRIGLYCERIDES (test code = 2232) 721 MG/DL HDL CHOLESTEROL (test code = 41 MG/DL 2219) CALC LDL CHOL (test code = 2237) NOTE MG/DL RISK RATIO LDL/HDL (test code = (NOTE) RATIO 2238) HEMOGLOBIN [id number] 00:00:00 Test Item Value Reference Range Interpretation Comments HEMOGLOBIN A1c (test code = 03560) 7.0 % HEMOGLOBIN [id number] 00:00:00 Test Item Value Reference Range Interpretation Comments HEMOGLOBIN A1c (test code = 25236) 7.0 % HEMOGLOBIN [id number] 00:00:00 Test Item Value Reference Range Interpretation Comments HEMOGLOBIN A1c (test code = 20166) 7.0 % COMPREHENSIVE METABOLIC [id number] 00:00:00 Test Item Value Reference Range Interpretation Comments GLUCOSE (test code = 2217) 188 MG/DL BUN (test code = 2208) 8 MG/DL CREATININE (test code = 2214) 0.47 MG/DL eGFR AMER. (test code 139 ML/MIN/1.73 = 09945) eGFR NON- AMER. (test 120 ML/MIN/1.73 code = 07174) CALC BUN/CREAT (test code = 17 RATIO [...] RATIO 223) BILIRUBIN, TOTAL (test code = 0.2 MG/DL 2206) ALKALINE PHOSPHATASE (test 79 U/L code = 2204) AST (test code = 2218) 13 U/L ALT (test code = 2219) 11 U/L COMPREHENSIVE METABOLIC [id number] 00:00:00 Test Item Value Reference Range Interpretation Comments GLUCOSE (test code = 2217) 188 MG/DL BUN (test code = 2208) 8 MG/DL CREATININE (test code = 2214) 0.47 MG/DL eGFR AMER. (test code 139 ML/MIN/1.73 = 90490) eGFR NON- AMER. (test 120 ML/MIN/1.73 code = 03745) CALC BUN/CREAT (test code = 17 RATIO [...] (test code = 2219) 11 U/L LIPID [id number] 00:00:00 Test Item Value Reference Range Interpretation Comments CHOLESTEROL (test code = 2210) 242 MG/DL TRIGLYCERIDES (test code = 2232) 721 MG/DL HDL CHOLESTEROL (test code = 41 MG/DL 2220) CALC LDL CHOL (test code = 2237) NOTE MG/DL RISK RATIO LDL/HDL (test code = (NOTE) RATIO 2238) LIPID [id number] 00:00:00 Test Item Value Reference Range Interpretation Comments CHOLESTEROL (test code = 2210) 242 MG/DL TRIGLYCERIDES (test code = 2232) 721 MG/DL HDL CHOLESTEROL (test code = 41 MG/DL 2220) CALC LDL CHOL (test code = 2237) NOTE MG/DL RISK RATIO LDL/HDL (test code = (NOTE) RATIO 2238) HEMOGLOBIN [id number] 00:00:00 Test Item Value Reference Range Interpretation Comments HEMOGLOBIN A1c (test code = 58370) 7.0 % HEMOGLOBIN [id number] 00:00:00 Test Item Value Reference Range Interpretation Comments HEMOGLOBIN A1c (test code = 69885) 7.0 % HEMOGLOBIN [id number] 00:00:00 Test Item Value Reference Range Interpretation Comments HEMOGLOBIN A1c (test code = 59884) 7.0 % COMPREHENSIVE METABOLIC [id number] 00:00:00 Test Item Value Reference Range Interpretation Comments GLUCOSE (test code = 2217) 188 MG/DL BUN (test code = 2208) 8 MG/DL CREATININE (test code = 2214) 0.47 MG/DL eGFR AMER. (test code 139 ML/MIN/1.73 = 55290) eGFR NON- AMER. (test 120 ML/MIN/1.73 code = 66497) CALC BUN/CREAT (test code = 17 RATIO [...] (test code = 2219) 11 U/L LIPID [id number] 00:00:00 Test Item Value Reference Range Interpretation Comments CHOLESTEROL (test code = 2210) 182 MG/DL TRIGLYCERIDES (test code = 2232) 489 MG/DL HDL CHOLESTEROL (test code = 43 MG/DL 2219) CALC LDL CHOL (test code = 2237) NOTE MG/DL RISK RATIO LDL/HDL (test code = (NOTE) RATIO 2238) HEMOGLOBIN [id number] 00:00:00 Test Item Value Reference Range Interpretation Comments HEMOGLOBIN A1c (test code = 71207) 6.1 % HEMOGLOBIN [id number] 00:00:00 Test Item Value Reference Range Interpretation Comments HEMOGLOBIN A1c (test code = 84210) 6.1 % COMPREHENSIVE METABOLIC [id number] 00:00:00 Test Item Value Reference Range Interpretation Comments GLUCOSE (test code = 2217) 169 MG/DL BUN (test code = 2208) 7 MG/DL CREATININE (test code = 2214) 0.51 MG/DL eGFR AMER. (test code 136 ML/MIN/1.73 = 85651) eGFR NON- AMER. (test 118 ML/MIN/1.73 code = 27680) CALC BUN/CREAT (test code = 14 RATIO [...] code = 2219) 10 U/L COMPREHENSIVE METABOLIC [id number] 00:00:00 Test Item Value Reference Range Interpretation Comments GLUCOSE (test code = 2217) 169 MG/DL BUN (test code = 2208) 7 MG/DL CREATININE (test code = 2214) 0.51 MG/DL eGFR AMER. (test code 136 ML/MIN/1.73 = 25351) eGFR NON- AMER. (test 118 ML/MIN/1.73 code = 27036) CALC BUN/CREAT (test code = 14 RATIO [...] (test code = 2219) 10 U/L LIPID [id number] 00:00:00 Test Item Value Reference Range Interpretation Comments CHOLESTEROL (test code = 2210) 182 MG/DL TRIGLYCERIDES (test code = 2232) 489 MG/DL HDL CHOLESTEROL (test code = 43 MG/DL 2220) CALC LDL CHOL (test code = 2237) NOTE MG/DL RISK RATIO LDL/HDL (test code = (NOTE) RATIO 2238) LIPID [id number] 00:00:00 Test Item Value Reference Range Interpretation Comments CHOLESTEROL (test code = 2210) 182 MG/DL TRIGLYCERIDES (test code = 2232) 489 MG/DL HDL CHOLESTEROL (test code = 43 MG/DL 2220) CALC LDL CHOL (test code = 2237) NOTE MG/DL RISK RATIO LDL/HDL (test code = (NOTE) RATIO 2238) HEMOGLOBIN [id number] 00:00:00 Test Item Value Reference Range Interpretation Comments HEMOGLOBIN A1c (test code = 41324) 6.1 % HEMOGLOBIN [id number] 00:00:00 Test Item Value Reference Range Interpretation Comments HEMOGLOBIN A1c (test code = 65291) 6.1 % HEMOGLOBIN [id number] 00:00:00 Test Item Value Reference Range Interpretation Comments HEMOGLOBIN A1c (test code = 83595) 6.1 % COMPREHENSIVE METABOLIC [id number] 00:00:00 Test Item Value Reference Range Interpretation Comments GLUCOSE (test code = 2217) 169 MG/DL BUN (test code = 2208) 7 MG/DL CREATININE (test code = 2214) 0.51 MG/DL eGFR AMER. (test code 136 ML/MIN/1.73 = 37346) eGFR NON- AMER. (test 118 ML/MIN/1.73 code = 98485) CALC BUN/CREAT (test code = 14 RATIO [...] code = 2219) 10 U/L COMPREHENSIVE METABOLIC [id number] 00:00:00 Test Item Value Reference Range Interpretation Comments GLUCOSE (test code = 2217) 169 MG/DL BUN (test code = 2208) 7 MG/DL CREATININE (test code = 2214) 0.51 MG/DL eGFR AMER. (test code 136 ML/MIN/1.73 = 13378) eGFR NON- AMER. (test 118 ML/MIN/1.73 code = 26542) CALC BUN/CREAT (test code = 14 RATIO [...] (test code = 2219) 10 U/L LIPID [id number] 00:00:00 Test Item Value Reference Range Interpretation Comments CHOLESTEROL (test code = 2210) 182 MG/DL TRIGLYCERIDES (test code = 2232) 489 MG/DL HDL CHOLESTEROL (test code = 43 MG/DL 2220) CALC LDL CHOL (test code = 2237) NOTE MG/DL RISK RATIO LDL/HDL (test code = (NOTE) RATIO 2238) LIPID [id number] 00:00:00 Test Item Value Reference Range Interpretation Comments CHOLESTEROL (test code = 2210) 182 MG/DL TRIGLYCERIDES (test code = 2232) 489 MG/DL HDL CHOLESTEROL (test code = 43 MG/DL 2220) CALC LDL CHOL (test code = 2237) NOTE MG/DL RISK RATIO LDL/HDL (test code = (NOTE) RATIO 2238) HEMOGLOBIN [id number] 00:00:00 Test Item Value Reference Range Interpretation Comments HEMOGLOBIN A1c (test code = 03360) 6.1 % HEMOGLOBIN [id number] 00:00:00 Test Item Value Reference Range Interpretation Comments HEMOGLOBIN A1c (test code = 37534) 6.1 % HEMOGLOBIN [id number] 00:00:00 Test Item Value Reference Range Interpretation Comments HEMOGLOBIN A1c (test code = 10333) 6.1 % COMPREHENSIVE METABOLIC [id number] 00:00:00 Test Item Value Reference Range Interpretation Comments GLUCOSE (test code = 2217) 169 MG/DL BUN (test code = 2208) 7 MG/DL CREATININE (test code = 2214) 0.51 MG/DL eGFR AMER. (test code 136 ML/MIN/1.73 = 62095) eGFR NON- AMER. (test 118 ML/MIN/1.73 code = 66012) CALC BUN/CREAT (test code = 14 RATIO [...] = 2219) 10 U/L MICROALBUMIN/CREATININE, RANDOM AND [id number] 00:00:00 Test Item Value Reference Range Interpretation Comments CREATININE, URINE, CONC. (test 86.9 MG/DL code = 2072) MICROALBUMIN, RANDOM (test code = 3.2 MG/DL 49382) CALC MICROALB/CREAT RND (test code 37 MG/G = 94099) MICROALBUMIN/CREATININE, RANDOM AND [id number] 00:00:00 Test Item Value Reference Range Interpretation Comments CREATININE, URINE, CONC. (test 86.9 MG/DL code = 2072) MICROALBUMIN, RANDOM (test code = 3.2 MG/DL 24386) CALC MICROALB/CREAT RND (test code 37 MG/G = 67016) MICROALBUMIN/CREATININE, RANDOM AND [id number] 00:00:00 Test Item Value Reference Range Interpretation Comments CREATININE, URINE, CONC. (test 86.9 MG/DL code = 2072) MICROALBUMIN, RANDOM (test code = 3.2 MG/DL 19970) CALC MICROALB/CREAT RND (test code 37 MG/G = 89977) MICROALBUMIN/CREATININE, RANDOM AND [id number] 00:00:00 Test Item Value Reference Range Interpretation Comments CREATININE, URINE, CONC. (test 86.9 MG/DL code = 2072) MICROALBUMIN, RANDOM (test code = 3.2 MG/DL 06464) CALC MICROALB/CREAT RND (test code 37 MG/G = 68070) MICROALBUMIN/CREATININE, RANDOM AND [id number] 00:00:00 Test Item Value Reference Range Interpretation Comments CREATININE, URINE, CONC. (test 86.9 MG/DL code = 2072) MICROALBUMIN, RANDOM (test code = 3.2 MG/DL 20585) CALC MICROALB/CREAT RND (test code 37 MG/G = 52297) MICROALBUMIN/CREATININE, RANDOM AND [id number] 00:00:00 Test Item Value Reference Range Interpretation Comments CREATININE, URINE, TEST NOT PERFORMED MG/DL CONC. (test code = 2072) MICROALBUMIN, RANDOM TEST NOT PERFORMED MG/DL (test code = 87499) CALC MICROALB/CREAT TEST NOT PERFORMED MG/G RND (test code = 44156) MICROALBUMIN/CREATININE, RANDOM AND [id number] 00:00:00 Test Item Value Reference Range Interpretation Comments CREATININE, URINE, TEST NOT PERFORMED MG/DL CONC. (test code = 2) MICROALBUMIN, RANDOM TEST NOT PERFORMED MG/DL (test code = 04659) CALC MICROALB/CREAT TEST NOT PERFORMED MG/G RND (test code = 03731) MICROALBUMIN/CREATININE, RANDOM AND [id number] 00:00:00 Test Item Value Reference Range Interpretation Comments CREATININE, URINE, TEST NOT PERFORMED MG/DL CONC. (test code = 2) MICROALBUMIN, RANDOM TEST NOT PERFORMED MG/DL (test code = 00552) CALC MICROALB/CREAT TEST NOT PERFORMED MG/G RND (test code = 05597) MICROALBUMIN/CREATININE, RANDOM AND [id number] 00:00:00 Test Item Value Reference Range Interpretation Comments CREATININE, URINE, TEST NOT PERFORMED MG/DL CONC. (test code = 2071) MICROALBUMIN, RANDOM TEST NOT PERFORMED MG/DL (test code = 69966) CALC MICROALB/CREAT TEST NOT PERFORMED MG/G RND (test code = 05750) MICROALBUMIN/CREATININE, RANDOM AND [id number] 00:00:00 Test Item Value Reference Range Interpretation Comments CREATININE, URINE, TEST NOT PERFORMED MG/DL CONC. (test code = 2072) MICROALBUMIN, RANDOM TEST NOT PERFORMED MG/DL (test code = 72321) CALC MICROALB/CREAT TEST NOT PERFORMED MG/G RND (test code = 50722) HEMOGLOBIN [id number] 00:00:00 Test Item Value Reference Range Interpretation Comments HEMOGLOBIN A1c (test code = 58744) 9.0 % HEMOGLOBIN [id number] 00:00:00 Test Item Value Reference Range Interpretation Comments HEMOGLOBIN A1c (test code = 19609) 9.0 % [id number] 00:00:00 Test Item Value Reference Range Interpretation Comments TSH (test code = 2821) 0.853 UIU/ML [id number] 00:00:00 Test Item Value Reference Range Interpretation Comments TSH (test code = 2821) 0.853 UIU/ML COMPREHENSIVE METABOLIC [id number] 00:00:00 Test Item Value Reference Range Interpretation Comments GLUCOSE (test code = 2217) 298 MG/DL BUN (test code = 2208) 8 MG/DL CREATININE (test code = 2214) 0.39 MG/DL eGFR AMER. (test code 149 ML/MIN/1.73 = 71950) eGFR NON- AMER. (test 129 ML/MIN/1.73 code = 84901) CALC BUN/CREAT (test code = 21 RATIO [...] (test code = 2219) 8 U/L LIPID [id number] 00:00:00 Test Item Value Reference Range Interpretation Comments CHOLESTEROL (test code = 2210) 233 MG/DL TRIGLYCERIDES (test code = 2232) 775 MG/DL HDL CHOLESTEROL (test code = 39 MG/DL 2219) CALC LDL CHOL (test code = 2237) NOTE MG/DL RISK RATIO LDL/HDL (test code = (NOTE) RATIO 2238) CBC W/AUTO [id number] 00:00:00 Test Item Value Reference Range Interpretation [...] code = 1015) 317 K/UL CBC W/AUTO [id number] 00:00:00 Test Item Value Reference Range Interpretation [...] code = 1015) 317 K/UL CBC W/AUTO [id number] 00:00:00 Test Item Value Reference Range Interpretation [...] (test code = 1015) 317 K/UL HEMOGLOBIN [id number] 00:00:00 Test Item Value Reference Range Interpretation Comments HEMOGLOBIN A1c (test code = 82366) 9.0 % HEMOGLOBIN [id number] 00:00:00 Test Item Value Reference Range Interpretation Comments HEMOGLOBIN A1c (test code = 27708) 9.0 % HEMOGLOBIN [id number] 00:00:00 Test Item Value Reference Range Interpretation Comments HEMOGLOBIN A1c (test code = 44748) 9.0 % [id number] 00:00:00 Test Item Value Reference Range Interpretation Comments TSH (test code = 2821) 0.853 UIU/ML [id number] 00:00:00 Test Item Value Reference Range Interpretation Comments TSH (test code = 2821) 0.853 UIU/ML [id number] 00:00:00 Test Item Value Reference Range Interpretation Comments TSH (test code = 2821) 0.853 UIU/ML COMPREHENSIVE METABOLIC [id number] 00:00:00 Test Item Value Reference Range Interpretation Comments GLUCOSE (test code = 2217) 298 MG/DL BUN (test code = 2208) 8 MG/DL CREATININE (test code = 2214) 0.39 MG/DL eGFR AMER. (test code 149 ML/MIN/1.73 = 30585) eGFR NON- AMER. (test 129 ML/MIN/1.73 code = 28334) CALC BUN/CREAT (test code = 21 RATIO [...] A/G RATIO (test code = 1.8 RATIO 223) BILIRUBIN, TOTAL (test code = 0.1 MG/DL 2206) ALKALINE PHOSPHATASE (test 81 U/L code = 2204) AST (test code = 2218) 13 U/L ALT (test code = 2219) 8 U/L COMPREHENSIVE METABOLIC [id number] 00:00:00 Test Item Value Reference Range Interpretation Comments GLUCOSE (test code = 2217) 298 MG/DL BUN (test code = 2208) 8 MG/DL CREATININE (test code = 2214) 0.39 MG/DL eGFR AMER. (test code 149 ML/MIN/1.73 = 10857) eGFR NON- AMER. (test 129 ML/MIN/1.73 code = 82453) CALC BUN/CREAT (test code = 21 RATIO [...] (test code = 2219) 8 U/L LIPID [id number] 00:00:00 Test Item Value Reference Range Interpretation Comments CHOLESTEROL (test code = 2210) 233 MG/DL TRIGLYCERIDES (test code = 2232) 775 MG/DL HDL CHOLESTEROL (test code = 39 MG/DL 2220) CALC LDL CHOL (test code = 2237) NOTE MG/DL RISK RATIO LDL/HDL (test code = (NOTE) RATIO 2238) LIPID [id number] 00:00:00 Test Item Value Reference Range Interpretation Comments CHOLESTEROL (test code = 2210) 233 MG/DL TRIGLYCERIDES (test code = 2232) 775 MG/DL HDL CHOLESTEROL (test code = 39 MG/DL 2220) CALC LDL CHOL (test code = 2237) NOTE MG/DL RISK RATIO LDL/HDL (test code = (NOTE) RATIO 2238) CBC W/AUTO [id number] 00:00:00 Test Item Value Reference Range Interpretation [...] code = 1015) 317 K/UL CBC W/AUTO [id number] 00:00:00 Test Item Value Reference Range Interpretation [...] code = 1015) 317 K/UL CBC W/AUTO [id number] 00:00:00 Test Item Value Reference Range Interpretation [...] (test code = 1015) 317 K/UL HEMOGLOBIN [id number] 00:00:00 Test Item Value Reference Range Interpretation Comments HEMOGLOBIN A1c (test code = 36566) 9.0 % HEMOGLOBIN [id number] 00:00:00 Test Item Value Reference Range Interpretation Comments HEMOGLOBIN A1c (test code = 18580) 9.0 % HEMOGLOBIN [id number] 00:00:00 Test Item Value Reference Range Interpretation Comments HEMOGLOBIN A1c (test code = 45188) 9.0 % [id number] 00:00:00 Test Item Value Reference Range Interpretation Comments TSH (test code = 2821) 0.853 UIU/ML [id number] 00:00:00 Test Item Value Reference Range Interpretation Comments TSH (test code = 2821) 0.853 UIU/ML [id number] 00:00:00 Test Item Value Reference Range Interpretation Comments TSH (test code = 2821) 0.853 UIU/ML COMPREHENSIVE METABOLIC [id number] 00:00:00 Test Item Value Reference Range Interpretation Comments GLUCOSE (test code = 2217) 298 MG/DL BUN (test code = 2208) 8 MG/DL CREATININE (test code = 2214) 0.39 MG/DL eGFR AMER. (test code 149 ML/MIN/1.73 = 54619) eGFR NON- AMER. (test 129 ML/MIN/1.73 code = 01789) CALC BUN/CREAT (test code = 21 RATIO [...] code = 2219) 8 U/L COMPREHENSIVE METABOLIC [id number] 00:00:00 Test Item Value Reference Range Interpretation Comments GLUCOSE (test code = 2217) 298 MG/DL BUN (test code = 2208) 8 MG/DL CREATININE (test code = 2214) 0.39 MG/DL eGFR AMER. (test code 149 ML/MIN/1.73 = 73472) eGFR NON- AMER. (test 129 ML/MIN/1.73 code = 80075) CALC BUN/CREAT (test code = 21 RATIO 2235) SODIUM (test code = 2231) 136 MEQ/L POTASSIUM (test code = 2228) 4.3 MEQ/L CHLORIDE (test code = 2215) 98 MEQ/L CARBON DIOXIDE (test code = 21 MEQ/L 2206) CALCIUM (test code = 2209) [...] (test code = 2219) 8 U/L LIPID [id number] 00:00:00 Test Item Value Reference Range Interpretation Comments CHOLESTEROL (test code = 2210) 233 MG/DL TRIGLYCERIDES (test code = 2232) 775 MG/DL HDL CHOLESTEROL (test code = 39 MG/DL 2220) CALC LDL CHOL (test code = 2237) NOTE MG/DL RISK RATIO LDL/HDL (test code = (NOTE) RATIO 2238) LIPID [id number] 00:00:00 Test Item Value Reference Range Interpretation Comments CHOLESTEROL (test code = 2210) 233 MG/DL TRIGLYCERIDES (test code = 2232) 775 MG/DL HDL CHOLESTEROL (test code = 39 MG/DL 2220) CALC LDL CHOL (test code = 2237) NOTE MG/DL RISK RATIO LDL/HDL (test code = (NOTE) RATIO 2238) CBC W/AUTO [id number] 00:00:00 Test Item Value Reference Range Interpretation [...] code = 1015) 317 K/UL CBC W/AUTO [id number] 00:00:00 Test Item Value Reference Range Interpretation [...] code = 1015) 317 K/UL CBC W/AUTO [id number] 00:00:00 Test Item Value Reference Range Interpretation [...] (test code = 1016) (NOTE) CBC W/AUTO [id number] 00:00:00 Test Item Value Reference Range Interpretation [...] COMMENTS (test code = 1016) (NOTE) HEMOGLOBIN [id number] 00:00:00 Test Item Value Reference Range Interpretation Comments HEMOGLOBIN A1c (test code = 96409) 8.3 % HEMOGLOBIN [id number] 00:00:00 Test Item Value Reference Range Interpretation Comments HEMOGLOBIN A1c (test code = 30481) 8.3 % [id number] 00:00:00 Test Item Value Reference Range Interpretation Comments TSH (test code = 2821) 1.1 UIU/ML [id number] 00:00:00 Test Item Value Reference Range Interpretation Comments TSH (test code = 2821) 1.1 UIU/ML COMPREHENSIVE METABOLIC [id number] 00:00:00 Test Item Value Reference Range Interpretation Comments GLUCOSE (test code = 2217) 196 MG/DL BUN (test code = 2208) 8 MG/DL CREATININE (test code = 2214) 0.48 MG/DL eGFR AMER. (test code 141 ML/MIN/1.73 = 36168) eGFR NON- AMER. (test 122 ML/MIN/1.73 code = 95216) CALCULATED BUN/CREAT (test 17 RATIO code = [...] (test code = 2219) 7 U/L LIPID [id number] 00:00:00 Test Item Value Reference Range Interpretation Comments CHOLESTEROL (test code = 2210) 289 MG/DL TRIGLYCERIDES (test code = 2232) 1092 MG/DL HDL CHOLESTEROL (test code = 2220) 41 MG/DL CALCULATED LDL CHOL (test code = NOTE MG/DL 2236) CBC W/AUTO [id number] 00:00:00 Test Item Value Reference Range Interpretation [...] (test code = 1016) (NOTE) CBC W/AUTO [id number] 00:00:00 Test Item Value Reference Range Interpretation [...] (test code = 1016) (NOTE) CBC W/AUTO [id number] 00:00:00 Test Item Value Reference Range Interpretation [...] COMMENTS (test code = 1016) (NOTE) HEMOGLOBIN [id number] 00:00:00 Test Item Value Reference Range Interpretation Comments HEMOGLOBIN A1c (test code = 76979) 8.3 % HEMOGLOBIN [id number] 00:00:00 Test Item Value Reference Range Interpretation Comments HEMOGLOBIN A1c (test code = 45571) 8.3 % HEMOGLOBIN [id number] 00:00:00 Test Item Value Reference Range Interpretation Comments HEMOGLOBIN A1c (test code = 96138) 8.3 % [id number] 00:00:00 Test Item Value Reference Range Interpretation Comments TSH (test code = 2821) 1.1 UIU/ML [id number] 00:00:00 Test Item Value Reference Range Interpretation Comments TSH (test code = 2821) 1.1 UIU/ML [id number] 00:00:00 Test Item Value Reference Range Interpretation Comments TSH (test code = 2821) 1.1 UIU/ML COMPREHENSIVE METABOLIC [id number] 00:00:00 Test Item Value Reference Range Interpretation Comments GLUCOSE (test code = 2217) 196 MG/DL BUN (test code = 2208) 8 MG/DL CREATININE (test code = 2214) 0.48 MG/DL eGFR AMER. (test code 141 ML/MIN/1.73 = 89276) eGFR NON- AMER. (test 122 ML/MIN/1.73 code = 33053) CALCULATED BUN/CREAT (test 17 RATIO code = [...] code = 2219) 7 U/L COMPREHENSIVE METABOLIC [id number] 00:00:00 Test Item Value Reference Range Interpretation Comments GLUCOSE (test code = 2217) 196 MG/DL BUN (test code = 2208) 8 MG/DL CREATININE (test code = 2214) 0.48 MG/DL eGFR AMER. (test code 141 ML/MIN/1.73 = 71591) eGFR NON- AMER. (test 122 ML/MIN/1.73 code = 55702) CALCULATED BUN/CREAT (test 17 RATIO code = [...] (test code = 2219) 7 U/L LIPID [id number] 00:00:00 Test Item Value Reference Range Interpretation Comments CHOLESTEROL (test code = 2210) 289 MG/DL TRIGLYCERIDES (test code = 2232) 1092 MG/DL HDL CHOLESTEROL (test code = 2220) 41 MG/DL CALCULATED LDL CHOL (test code = NOTE MG/DL 2237) LIPID [id number] 00:00:00 Test Item Value Reference Range Interpretation Comments CHOLESTEROL (test code = 2210) 289 MG/DL TRIGLYCERIDES (test code = 2232) 1092 MG/DL HDL CHOLESTEROL (test code = 2220) 41 MG/DL CALCULATED LDL CHOL (test code = NOTE MG/DL 2237) CBC W/AUTO [id number] 00:00:00 Test Item Value Reference Range Interpretation [...] (test code = 1016) (NOTE) CBC W/AUTO [id number] 00:00:00 Test Item Value Reference Range Interpretation [...] (test code = 1016) (NOTE) CBC W/AUTO [id number] 00:00:00 Test Item Value Reference Range Interpretation [...] COMMENTS (test code = 1016) (NOTE) HEMOGLOBIN [id number] 00:00:00 Test Item Value Reference Range Interpretation Comments HEMOGLOBIN A1c (test code = 96605) 8.3 % HEMOGLOBIN [id number] 00:00:00 Test Item Value Reference Range Interpretation Comments HEMOGLOBIN A1c (test code = 24232) 8.3 % HEMOGLOBIN [id number] 00:00:00 Test Item Value Reference Range Interpretation Comments HEMOGLOBIN A1c (test code = 75699) 8.3 % [id number] 00:00:00 Test Item Value Reference Range Interpretation Comments TSH (test code = 2821) 1.1 UIU/ML [id number] 00:00:00 Test Item Value Reference Range Interpretation Comments TSH (test code = 2821) 1.1 UIU/ML [id number] 00:00:00 Test Item Value Reference Range Interpretation Comments TSH (test code = 2821) 1.1 UIU/ML COMPREHENSIVE METABOLIC [id number] 00:00:00 Test Item Value Reference Range Interpretation Comments GLUCOSE (test code = 2217) 196 MG/DL BUN (test code = 2208) 8 MG/DL CREATININE (test code = 2214) 0.48 MG/DL eGFR AMER. (test code 141 ML/MIN/1.73 = 78060) eGFR NON- AMER. (test 122 ML/MIN/1.73 code = 24582) CALCULATED BUN/CREAT (test 17 RATIO code = [...] code = 2219) 7 U/L COMPREHENSIVE METABOLIC [id number] 00:00:00 Test Item Value Reference Range Interpretation Comments GLUCOSE (test code = 2217) 196 MG/DL BUN (test code = 2208) 8 MG/DL CREATININE (test code = 2214) 0.48 MG/DL eGFR AMER. (test code 141 ML/MIN/1.73 = 45475) eGFR NON- AMER. (test 122 ML/MIN/1.73 code = 19629) CALCULATED BUN/CREAT (test 17 RATIO code = [...] (test code = 2219) 7 U/L LIPID [id number] 00:00:00 Test Item Value Reference Range Interpretation Comments CHOLESTEROL (test code = 2210) 289 MG/DL TRIGLYCERIDES (test code = 2232) 1092 MG/DL HDL CHOLESTEROL (test code = 2220) 41 MG/DL CALCULATED LDL CHOL (test code = NOTE MG/DL 2237) LIPID [id number] 00:00:00 Test Item Value Reference Range Interpretation Comments CHOLESTEROL (test code = 2210) 289 MG/DL TRIGLYCERIDES (test code = 2232) 1092 MG/DL HDL CHOLESTEROL (test code = 2220) 41 MG/DL CALCULATED LDL CHOL (test code = NOTE MG/DL 2237)
--- NOTE | 2022-02-20 17:35 | RAD REPORT ---
EXAM DESCRIPTION: RAD - Chest Single View - 02/20/2022 5:25 pm CLINICAL HISTORY: CHEST PAIN COMPARISON: Chest Single View dated 08/16/2021; Chest Single View dated 12/03/2019; Chest Single View dated 03/05/2016; CHEST SINGLE VIEW dated 03/03/2013 FINDINGS: Lines: None. Lungs: No evidence of edema or pneumonia. Pleural: No significant pleural effusions or pneumothorax. Cardiac: The heart size is within normal limits. Mediastinum: Within normal limits. Bones: No acute fractures. Other: None IMPRESSION: No acute cardiopulmonary disease.
[2022-02-20 17:47] LABS: Absolute Lymphocytes (CBC) 2.1 K/uL (0.7-4.9); Hematocrit 44.8 % (36.0-45.0); Lymphocytes % 25.9 % (15.3-44.8); MCV 88.3 fL (80-100); MPV 7.7 fL (7.6-11.3); RBC Red Blood Cell Count 5.07 M/uL (3.86-4.86)
[2022-02-20 17:49] LABS: Urine Blood Trace-intact (Negative); Urine Glucose 3+ (Negative); Urine Protein Negative (Negative); Urine pH 5.5 (5.0-7.0)
[2022-02-20 17:49] LABS: Protime INR 0.87
[2022-02-20 17:57] LABS: Urine Bacteria <20 /HPF (<20); Urine Crystals Unidentified Few /HPF (None Seen); Urine Mucus Slight /HPF (None Seen); Urine RBC <5 /HPF (None Seen)
[2022-02-20 18:03] LABS: ALT/SGPT 47 U/L (13-56); Albumin 3.7 g/dL (3.4-5.0); Alkaline Phosphatase 152 U/L (45-117); BUN Blood Urea Nitrogen 9 mg/dL (7-18); Bicarbonate 22 mmol/L (21-32); Bilirubin Total 0.4 mg/dL (0.2-1.0); Glomerular Filtration Rate 95 ml/min (=/>90); Glucose Level 266 mg/dL (74-106); NT PRO-BNP 13 pg/mL (<125); Protein, Total 7.9 g/dL (6.4-8.2); Sodium Level 134 mmol/L (136-145); Troponin High Sensitivity 4.6 pg/mL (<58.9)
[2022-02-20 18:05] LABS: AST/SGOT 27 U/L (15-37); Bilirubin Direct < 0.1 mg/dL (0-0.2); Magnesium 1.6 mg/dL (1.6-2.4); Potassium 3.7 mmol/L (3.5-5.1)
[2022-02-20 18:36] LABS: SARS-COV-2 RT PCR POSITIVE (NEGATIVE)
[2022-02-20] MEDS ORDERED: ONDANSETRON 4 MG/2 ML VIAL ONE (19:47)
[2022-02-20] MEDS ORDERED: FAMOTIDINE 20 MG/2 ML VIAL IV ONE (19:47)
[2022-02-20] MEDS ORDERED: NA CHLORIDE 0.9% 1,000 ML ONE (19:47)
[2022-02-20] MEDS ORDERED: HYDROCODONE/CHLORPHEN 5 ML/OSYR ONE (19:47)
[2022-02-20] MEDS ORDERED: IBUPROFEN 400 MG TAB ONE (19:47)
--- NOTE | 2022-02-20 20:26 | ER ---
Nurse's Notes [facility] Name: Effie Crouch Age: 46 yrs Sex: Female : 1975 Arrival Date: 02/20/2022 Time: 15:44 Bed 13 Private MD: Diagnosis: Coronavirus infection, unspecified Presentation: 02/20 16:29 Chief complaint: Patient states: SOB, HEADACHE, CONGESTION x2 DAYS. Coronavirus screen: bp Client reports previous positive COVID test result. Date of collection: February 18, 2022. Ebola Screen: No symptoms or risks identified at this time. Initial Sepsis Screen: Does the patient meet any 2 criteria? RR > 20 per min. HR > 90 bpm. Yes Does the patient have a suspected source of infection? No. Patient's initial sepsis screen is negative. Risk Assessment: Do you want to hurt yourself or someone else? Patient reports no desire to harm self or others. Onset of symptoms is unknown. 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 - Social history:: Smoking status: Patient denies any tobacco usage or history of. Screenin:20 [facility] ED Fall Risk Assessment (Adult) History of falling in the last 3 months, jb4 including since admission. Abuse screen: Denies threats or abuse. Nutritional screening: No deficits noted. Tuberculosis screening: No symptoms or risk factors identified. Assessment: 19:20 General: Appears in no apparent distress. uncomfortable, Behavior is calm, cooperative, jb4 appropriate for age. Pain: Complains of pain in chest, headache, bodyaches Pain does not radiate. Pain currently is 3 out of 10 on a pain scale. Quality of pain is described as aching. Neuro: Level of Consciousness is awake, alert, obeys commands, Oriented to person, place, time, situation. Cardiovascular: Patient's skin is warm and dry. Respiratory: Reports shortness of breath on exertion Airway is patent Respiratory effort is even, unlabored, Respiratory pattern is regular, symmetrical. GI: No signs and/or symptoms were reported involving the gastrointestinal system. : No signs and/or symptoms were reported regarding the genitourinary system. EENT: No signs and/or symptoms were reported regarding the EENT system. Derm: Skin is intact, Skin is pink, warm \T\ dry. Musculoskeletal: Circulation, motion, and sensation intact. Range of motion: intact in all extremities. 20:30 Reassessment: D/c pending completion of IV fluid. jb4 21:07 Reassessment: Patient appears in no apparent distress at this time. Patient and/or jb4 family updated on plan of care and expected duration. Pain level reassessed. Patient is alert, oriented x 3, equal unlabored respirations, skin warm/dry/pink. Patient states feeling better. Vital Signs: 16:29 BP 146 / 59; Pulse 120; Resp 24; Temp 98.6; Pulse Ox 100% ; Weight 74.39 kg; Height 5 bp ft. 2 in. (157.48 cm); 19:39 BP 137 / 80; Pulse 117; Resp 23; Temp 97.9; Pulse Ox 99% ; Weight 74.39 kg; Height 5 rv1 ft. 2 in. (157.48 cm); 21:07 BP 138 / 71; Pulse 103; Resp 18; Temp 98.3; Pulse Ox 100% ; rv1 19:39 Body Mass Index 30.00 (74.39 kg, 157.48 cm) rv1 ED Course: 15:44 Patient arrived in ED. am2 15:57 Bairon Newberry PA is PHCP. cp 15:57 Evelyn Jimenez MD is Attending Physician. cp 16:31 Triage completed. bp 16:31 Arm band placed on. bp 17:27 XRAY Chest (1 view) In Process Unspecified. EDMS 17:54 Inserted saline lock: 20 gauge in left antecubital area, using aseptic technique. bc6 17:56 Blood Culture Adult (2) Sent. bc6 17:56 COVID-19/FLU A+B Sent. bc6 17:57 Basic Metabolic Panel Sent. bc6 17:57 LFT's Sent. bc6 17:57 Magnesium Sent. bc6 17:57 NT PRO-BNP Sent. bc6 17:57 Troponin HS Sent. bc6 17:58 Initial lab(s) drawn, by me. bc6 18:35 Throat Culture Sent. bc6 18:35 Blood Culture Adult (2) Sent. bc6 19:20 Patient has correct armband on for positive identification. Bed in low position. Call jb light in reach. Side rails up X 1. Client placed on continuous cardiac and pulse oximetry monitoring. NIBP monitoring applied. 19:27 Steve Valdes, LISBETH is Primary Nurse. jb4 19:34 PHCP role handed off by Bairon Newberry PA [facility] 19:34 David Brenner PA is PHCP. [facility] 21:08 No provider procedures requiring assistance completed. IV discontinued, intact, jb4 bleeding controlled, No redness/swelling at site. Pressure dressing applied. Administered Medications: 19:54 Drug: Zofran (Ondansetron) 4 mg Route: IVP; Site: left antecubital; jb4 20:30 Follow up: Response: No adverse reaction; Marked relief of symptoms jb4 19:54 Drug: Pepcid (famotidine) 20 mg Route: IVP; Site: left antecubital; jb4 20:30 Follow up: Response: No adverse reaction; Marked relief of symptoms jb4 19:54 Drug: NS 0.9% 1000 ml Route: IV; Rate: 1 bolus; Site: left antecubital; jb4 21:09 Follow up: Response: No adverse reaction; IV Status: Completed infusion; IV Intake: jb4 1000ml 20:10 Drug: Tussionex Pennkinetic ER (chlorpheniramine-hydrocodone) Suspension 5 ml Route: PO;jb4 21:09 Follow up: Response: No adverse reaction; Marked relief of symptoms jb4 20:10 Drug: Ibuprofen 800 mg Route: PO; jb4 21:09 Follow up: Response: No adverse reaction; Marked relief of symptoms jb4 Intake: 21:09 IV: 1000ml; Total: 1000ml. jb4 Outcome: 20:25 Discharge ordered by MD. wolf 21:08 Discharged to home ambulatory. jb4 21:08 Condition: stable 21:08 Discharge instructions given to patient, Instructed on discharge instructions, follow up and referral plans. medication usage, Demonstrated understanding of instructions, follow-up care, medications, Prescriptions given X 2. 21:10 Patient left the ED. jb4 Signatures: Dispatcher [employer] EDMS David Brenner PA PA jmm Page, Corey, PA PA cp Bryson, James, LISBETH RN jb4 Maria Elena Smalls am2 Juan Carlos Meza, LISBETH RN Marquita Wilson rv1 Roxana Vaca 6
--- NOTE | 2022-02-20 20:26 | EDPHYS ---
Physician Documentation [facility] Name: Effie Crouch Age: 46 yrs Sex: Female : 1975 Arrival Date: 02/20/2022 Time: 15:44 Bed 13 Private MD: ED Physician Evelyn Jimenez HPI: 02/20 16:45 This 46 yrs old Female presents to ER via Ambulatory with complaints of cp Headache, covid+, Chest Pain, Nausea. 16:45 The patient or guardian reports cough, that is intermittent, difficulty breathing. cp 16:45 Onset: The symptoms/episode began/occurred 2 day(s) ago. Modifying factors: the cp symptoms are aggravated by activity. 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 - Social history:: Smoking status: Patient denies any tobacco usage or history of. ROS: 16:50 Constitutional: Positive for body aches, poor PO intake, Negative for fever. cp 16:50 Cardiovascular: Positive for chest pain, with cough. cp 16:50 Eyes: Negative for injury, pain, redness, and discharge. cp 16:50 ENT: Positive for rhinorrhea, sore throat, Negative for drainage from ear(s), ear pain, difficulty swallowing, difficulty handling secretions. 16:50 Respiratory: Positive for cough, with no reported sputum, shortness of breath, on exertion. Negative for wheezing. 16:50 Abdomen/GI: Negative for abdominal pain, vomiting, diarrhea, constipation. 16:50 : Negative for urinary symptoms. cp 16:50 Neuro: Positive for headache, Negative for altered mental status, dizziness, numbness, weakness. 16:50 All other systems are negative. Exam: 16:50 Head/Face: Normocephalic, atraumatic. cp 16:50 Constitutional: The patient appears in no acute distress, alert, awake, non-diaphoretic, non-toxic, well developed, well nourished, obese. 16:50 Eyes: Periorbital structures: appear normal, Conjunctiva: normal, no exudate, no injection, Sclera: no appreciated abnormality, Lids and lashes: appear normal, bilaterally. 16:50 ENT: External ear(s): are unremarkable, Nose: is normal, Mouth: Lips: moist, Oral mucosa: pink and intact, moist, Posterior pharynx: Airway: no evidence of obstruction, patent, Tonsils: with erythema, no enlargement, no exudate, erythema, that is mild, exudate, is not appreciated. 16:50 Neck: ROM/movement: is normal, is supple, without pain, no range of motions limitations, no meningismus, Lymph nodes: no appreciated lymphadenopathy. 16:50 Chest/axilla: Inspection: normal. 16:50 Cardiovascular: Rate: tachycardic, Rhythm: regular, Edema: is not appreciated, JVD: is not appreciated. 16:50 Respiratory: the patient does not display signs of respiratory distress, Respirations: labored breathing, that is mild, Breath sounds: bronchial sounds, that are mild, are heard diffusely, decreased breath sounds, are not appreciated, stridor, is not appreciated, + upper airway congestion. wheezing: is not appreciated. 16:50 Abdomen/GI: Inspection: abdomen appears normal, Bowel sounds: active, all quadrants, Palpation: abdomen is soft and non-tender, in all quadrants. 16:50 Back: pain, is absent, ROM is normal. 16:50 Skin: no rash present. 16:50 Neuro: Orientation: to person, place \T\ time. Mentation: is normal. 17:25 ECG was reviewed by the Attending Physician. cp Vital Signs: 16:29 BP 146 / 59; Pulse 120; Resp 24; Temp 98.6; Pulse Ox 100% ; Weight 74.39 kg; Height 5 bp ft. 2 in. (157.48 cm); 19:39 BP 137 / 80; Pulse 117; Resp 23; Temp 97.9; Pulse Ox 99% ; Weight 74.39 kg; Height 5 rv1 ft. 2 in. (157.48 cm); 21:07 BP 138 / 71; Pulse 103; Resp 18; Temp 98.3; Pulse Ox 100% ; rv1 19:39 Body Mass Index 30.00 (74.39 kg, 157.48 cm) rv1 MDM: 16:35 Patient medically screened. cp 20:24 Data reviewed: vital signs, nurses notes. Counseling: I had a detailed discussion with luciano the patient and/or guardian regarding: the historical points, exam findings, and any diagnostic results supporting the discharge/admit diagnosis, lab results, the need for outpatient follow up, to return to the emergency department if symptoms worsen or persist or if there are any questions or concerns that arise at home. 02/20 16:30 Order name: Basic Metabolic Panel; Complete Time: 18:28 02/20 18:28 Interpretation: Normal except: NA 134; ANION GAP 15.7; GLUC 266. 02/20 16:30 Order name: CBC with Diff; Complete Time: 18:28 02/20 18:28 Interpretation: Normal except: RBC 5.07; HGB 15.8. 02/20 16:30 Order name: D-Dimer; Complete Time: 18:28 02/20 18:29 Interpretation: D-DIMER 415; Reviewed. 02/20 16:30 Order name: LFT's; Complete Time: 18:28 02/20 18:28 Interpretation: Normal except: ALK 152; GLOB 4.2; A/G 0.9. 02/20 16:30 Order name: Magnesium; Complete Time: 18:28 02/20 16:30 Order name: NT PRO-BNP; Complete Time: 18:28 02/20 16:30 Order name: PT-INR; Complete Time: 18:28 02/20 16:30 Order name: Troponin HS; Complete Time: 18:28 02/20 19:16 Interpretation: Reviewed. 02/20 16:30 Order name: Lactate w/ 2H reflex if indic.; Complete Time: 18:28 02/20 16:30 Order name: CRP; Complete Time: 18:28 02/20 18:29 Interpretation: Abnormal: C-REACTIVE PROT 28.70. 02/20 16:30 Order name: Blood Culture Adult (2) 02/20 16:30 Order name: COVID-19/FLU A+B; Complete Time: 19:15 02/20 19:15 Interpretation: Reviewed. 02/20 16:30 Order name: Strep; Complete Time: 18:28 02/20 16:38 Order name: Urine Microscopic Only; Complete Time: 18:28 02/20 16:30 Order name: XRAY Chest (1 view); Complete Time: 18:28 02/20 18:29 Interpretation: Report review. 02/20 16:30 Order name: EKG; Complete Time: 16:30 02/20 16:30 Order name: Cardiac monitoring; Complete Time: 19:54 02/20 16:30 Order name: EKG - Nurse/Tech; Complete Time: 17:19 02/20 16:30 Order name: IV Saline Lock; Complete Time: 17:19 02/20 16:30 Order name: Labs collected and sent; Complete Time: 17:42 02/20 16:30 Order name: O2 Per Protocol; Complete Time: 17:42 02/20 16:30 Order name: O2 Sat Monitoring; Complete Time: 17:42 02/20 17:49 Order name: Urine Dipstick-Ancillary; Complete Time: 18:28 EDMS 02/20 18:29 Interpretation: Normal except: UGLUC 3+; UKET 1+; UBLD Trace-intact. 02/20 17:51 Order name: Urine Dipstick-Ancillary EDKS 02/20 17:55 Order name: Throat Culture EDKS 02/20 16:38 Order name: Urine Dipstick-Ancillary (obtain specimen); Complete Time: 17:49 02/20 16:38 Order name: Urine Test (obtain specimen); Complete Time: 17:49 cp EC:25 Rate is 126 beats/min. Rhythm is regular. TN interval is normal. QRS interval is cp normal. QT interval is normal. T waves are Inverted in lead aVR. Interpreted by me. Reviewed by me. Administered Medications: 19:54 Drug: Zofran (Ondansetron) 4 mg Route: IVP; Site: left antecubital; jb4 20:30 Follow up: Response: No adverse reaction; Marked relief of symptoms jb4 19:54 Drug: Pepcid (famotidine) 20 mg Route: IVP; Site: left antecubital; jb4 20:30 Follow up: Response: No adverse reaction; Marked relief of symptoms jb4 19:54 Drug: NS 0.9% 1000 ml Route: IV; Rate: 1 bolus; Site: left antecubital; jb4 21:09 Follow up: Response: No adverse reaction; IV Status: Completed infusion; IV Intake: jb4 1000ml 20:10 Drug: Tussionex Pennkinetic ER (chlorpheniramine-hydrocodone) Suspension 5 ml Route: PO;jb4 21:09 Follow up: Response: No adverse reaction; Marked relief of symptoms jb4 20:10 Drug: Ibuprofen 800 mg Route: PO; jb4 21:09 Follow up: Response: No adverse reaction; Marked relief of symptoms jb4 Disposition Summary: 02/20/22 20:25 Discharge Ordered Location: Home [facility] Condition: Stable [facility] Diagnosis - Coronavirus infection, unspecified [facility] Followup: jmm - With: Private Physician - When: 2 - 3 days - Reason: Recheck today's complaints, Continuance of care, Re-evaluation by your physician Discharge Instructions: - Discharge Summary Sheet [facility] - COVID-19 [facility] Forms: - Medication Reconciliation Form [facility] - Thank You Letter [facility] - Antibiotic Education [facility] - Prescription Opioid Use [facility] Prescriptions: - promethazine-DM - take 10 milliliter by ORAL route every 4-6 hours As needed; 200 milliliter; [facility] Refills: 0, Product Selection Permitted - albuterol sulfate 90 mcg/actuation Inhalation HFA aerosol inhaler - inhale 2 puff by INHALATION route every 4 hours; 1 Pump; Refills: 0, Product [facility] Selection Permitted Addendum: 02/24/2022 18:34 STAFF ATTESTATION STATEMENT: I was immediately available onsite in the emergency s d2 department for consultation in the care of this patient. I did not see or examine this patient. Evelyn Jimenez MD. Signatures: Dispatcher [employer] EDMS David Brenner PA PA jmm Page, Corey, PA PA cp Bryson, James, RN RN jb4 Juan Carlos Meza RN RN bp Evelyn Jimenez MD MD sd2
[2022-02-20 21:29] VITALS: BP 138/71; TEMP 98.3; O2SAT 100
--- NOTE | 2022-02-21 14:51 | EKG ---
Test Date: 2022-02-20 Test Time: 17:18:15 Pipe [employer]: LESTER MEASUREMENT RESULTS: Intervals: Rate: 126 MT: 144 QRSD: 66 QT: 304 QTc: 440 [place]: P: 61 MT: 144 QRS: 62 T: 54 INTERPRETIVE STATEMENTS: Sinus tachycardia Septal infarct, age undetermined Abnormal ECG Compared to ECG 08/16/2021 15:17:57 Sinus rhythm no longer present Myocardial infarct finding still present Electronically Signed On 02-21-22 14:50:30 ENAMEL BUFFER by Randy Zee
== END 2022-02-20 21:10 | disposition home or self-care (01) ==
LOC: ER 15:43
DX: U07.1 COVID-19 (principal); E11.9 Type 2 diabetes mellitus without complications; Z79.4 Long term (current) use of insulin; I10 Essential (primary) hypertension
CPT/HCPCS: 0240U; 36415; 71045; 80048; 80076; 81003; 81015; 83605; 83735; 83880; 84484; 85025; 85379; 85610; 86140; 87040; 87070; 87081; 87205; 93005; 96361; 96374; 96375; 99284; J2405; J7030

== ENCOUNTER 2022-09-28 13:40 | Emergency (ER) | payer OTHER ==
--- OUTSIDE RECORDS SUMMARY | 2022-09-28 13:49 | XMS REPORT | Continuity of Care Document ---
:1975 Author Organization [facility] t Address [address] [facility] [address] [place] [address] Care Team Providers Name Role Phone Maria Victoria Mckenna Primary Care Physician MARIA VICTORIA BEAN Attending Clinician Unavailable Sury Choudhary Attending Clinician Unavailable Maria Victoria Mckenna Attending Clinician [phone] SURY SANCHES Attending Clinician Unavailable Doctor Unassigned, [place] Attending Clinician Unavailable Payers Payer Name Policy Type Policy Number Effective Date Expiration Date S ource Problems Condition Condition Condition Status Onset Resolution Last Treating Co mments Source Name Details Category Date Date Treatment Clinician Date History of History of Disease Active U basil herpes herpes 6-24 ity of genitalis genitalis 00:00: [facility] Medical Branch History of History of Disease Active U nivers hysterecto hysterecto 1-08 it y of my my 00:00: [place] [address] Medical Branch Vaginal Vaginal Disease Active Univers itching itching 1-08 ity of 00:00: [place] [address] Medical Branch History of History of Disease Active U nivers hypertensi hypertensi 1-08 it y of on on 00:00: [place] [address] Medical Branch Family Family Disease Active 2020-0 Univers history of history of 1-08 it y of diabetes diabetes 00:00: [place] mellitus mellitus 00 Medica l Branch Class [...] serious comorbidit comorbidit y present y present Encounter Encounter Disease Active Uni vers for for 03-02 ity of surveillan surve[place] of Medical contracept contracept Br anch chalino, chalino, unspecifie unspecifie d d contracept contracept desean desean Well woman Well woman Disease Active 2018-02 U nivers exam exam 2-12 ity of 00:00: [place] 00 Medical Branch S/P S/P Disease Active Univers KEILA-BSO KEILA-BSO 5-19 ity of 00:00: [place] [facility] Postoperat Postoperat Disease Active U nivers desean state desean state 18 ity of 00:00: [place] 00 Medical Branch Symptomati Symptomati Disease Active U nivers c anemia c anemia -19 ity of 00:00: [place] 00 Medical Branch ASCUS with ASCUS with Disease Active 2015-02 U nivers positive positive 1-02 ity of high risk high risk 00:[place] HPV HPV 00 Medical cervical cervical Branch Herpes, Herpes, Disease Active 2015-02 Univers vulvar vulvar 0-07 ity of 00:00: [place] 00 Medical Branch Endometrio Endometrio Disease Active 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 colpo 05/31/2014- negative bx#1 FU Pap ASCUScolp o 12/26/2015 Diabetes Diabetes Disease Active Unive rs 1-29 ity of 00:00: [place] 00 [facility] Er BMI BMI Disease Active Overview: Univer s 32.0-32.9, 32.0-32.9, 03-23 Formattin ity of adult adult 00:00: g of this [place] 00 note Medical might be Branch different from the original. 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 Post BTL Allergies, Adverse Reactions, Alerts Allergy Allergy Status Severity Reaction(s) Onset Inactive Treating Comm ents Source Name Type Date Date Clinician NO KNOWN Drug Active Univers ALLERGIE Class ity of S [facility] Social History Social Habit Start Date Stop Date Quantity Comments Source History of tobacco Cigarette Smoker University of use [facility] Alcohol intake 2021-08-16 2021-08-16 0 /d University of 00:00:00 00:00:00 [facility] Cigarettes smoked 2019-02-03 2019-02-03 Univers ity of current (pack per 00:00:00 00:00:00 ) - Reported Branch Tobacco use and 2019-02-03 2019-02-03 Smokeless Universit y of exposure 00:00:00 00:00:00 tobacco [facility] 2019-02-03 2019-02-03 University of pack-years 00:00:00 00:00:00 [facility] Tobacco Comment 2014-03-23 2014-03-23 smokes 7 x per Unive rsity of 00:00:00 00:00:00 day [facility] Sex Ass[birth year] At [birth year] Universit y of 00:00:00 00:00:00 [facility] Smoking Status Start Date Stop Date Source Smokes tobacco daily 2019-02-03 00:00:00 Univers ity of [facility] Medications Ordered Filled Start Stop Current Ordering Indication Dosage Frequency Signature Comments Components Source Medication Medication Date Date Medication? Clinician (SIG) Name Name TAKE No TABLET BY 8-25 MOUTH TWICE 00:00: DAILY FOR 5 00 DAYS TAKE 1 2-0 No TABLET BY 8-25 MOUTH TWICE 00:00: DAILY FOR 5 00 DAYS acyclovir 2-0 Yes [id number] 400mg Take 1 Univers 400 mg 8-18 tablet by ity of tablet 00:00: mouth in [address] and 1 tablet in the evening. acyclovir 2022-0 Yes [id number] 400mg Take 1 Univers 400 mg 8-18 tablet by ity of tablet 00:00: mouth in [address] and 1 tablet in the evening. lisinopril 2-0 No 1mg 5 mg tablet 09-12 00:00: 00 lisinopril 2-0 No 1mg 5 mg tablet 09-12 00:00: 00 ondansetron 2-0 No 1mg 4 mg 7-08 disintegrat 00:00: ing tablet 00 Dose 2022-0 No Unknown 7-08 00:00: 00 Dose 2022-0 No Unknown 7-08 00:00: 00 Dose 2022-0 No Unknown 7-08 00:00: 00 ondansetron 2022-0 No 1mg 4 mg 7-08 disintegrat 00:00: ing tablet 00 Dose 2022-0 No Unknown 7-08 00:00: 00 Dose 2022-0 No Unknown 7-08 00:00: 00 Dose 2022-0 No Unknown 7-08 00:00: 00 ondansetron 2022-0 No 1mg 4 mg 7-08 disintegrat 00:00: ing tablet 00 Dose 2022-0 No Unknown 7-08 00:00: 00 Dose 2022-0 No Unknown 7-08 00:00: 00 Dose 2022-0 No Unknown 7-08 00:00: 00 Dose 2022-0 No Unknown 7-06 00:00: 00 Dose 2022-0 No Unknown 7-06 00:00: 00 Dose 2022-0 [...] 00:00: 00 fenofibrate 2-0 No 1mg micronized 1-28 130 mg 00:00: capsule 00 Novolin 2021-0 [...] 00:00: unit/mL 00 subcutaneou s suspension prednisone 2021-0 No 1mg 5 mg tablet 09-20 00:00: 00 metformin 2021-0 No 1mg 1,000 mg 7-29 tablet 00:00: 00 lovastatin 2021-0 No 1mg 40 mg 7- tablet 00:00: 00 Novolin 2021-0 No unit/mL 70/30 U-100 7-29 (70-30) Insulin 100 00:00: unit/mL 00 subcutaneou s suspension prednisone 1-0 No 1mg 5 mg tablet 09-20 00:00: 00 metformin 2021-0 No 1mg 1,000 mg - tablet 00:00: 00 lovastatin 2021-0 No 1mg 40 mg 7- tablet 00:00: 00 Novolin 2021-0 No unit/mL 70/30 U-100 09-20 (70-30) Insulin 100 00:00: unit/mL 00 subcutaneou s suspension prednisone 1-0 No 1mg 5 mg tablet 09-20 00:00: 00 metformin 2021-0 No 1mg 1,000 mg 7- tablet 00:00: 00 lovastatin 2021-0 No 1mg 40 mg 7- tablet 00:00: 00 Novolin 2021-0 No unit/mL [...] 1,000 mg 6-07 tablet 00:00: 00 fenofibrate 1-0 No 1mg micronized 6-07 130 mg 00:00: capsule 00 lovastatin 1-0 No 1mg 40 mg 6-05 tablet 00:00: 00 lovastatin 2021-0 No 1mg 40 mg 6-05 tablet 00:00: 00 lovastatin 2021-0 No 1mg 40 mg 6-05 tablet 00:00: 00 Novolin 1-0 No unit/mL 70/30 U-100 5-29 (70-30) Insulin 100 00:00: unit/mL 00 subcutaneou s suspension Novolin 1-0 No unit/mL 70/30 U-100 5-29 (70-30) Insulin 100 00:00: unit/mL 00 subcutaneou s suspension metformin 1-0 No 1mg 1,000 mg 5-29 tablet 00:00: 00 fenofibrate 1-0 No 1mg micronized 5-29 130 mg 00:00: capsule 00 Novolin 1-0 No unit/mL 70/30 U-100 5-29 (70-30) Insulin 100 00:00: unit/mL 00 subcutaneou s suspension Novolin 1-0 No unit/mL 70/30 U-100 5-29 (70-30) Insulin 100 00:00: unit/mL 00 subcutaneou s suspension metformin 1-0 No 1mg 1,000 mg 5-29 tablet 00:00: 00 fenofibrate 1-0 No 1mg micronized 5-29 130 mg 00:00: capsule 00 Novolin 1-0 No unit/mL 70/30 U-100 5-29 [...] 500 mg 2-12 tablet 00:00: 00 fenofibrate 1-0 No 1mg micronized 2-12 130 mg 00:00: capsule 00 Novolin 1-0 No unit/mL 70/30 U-100 2-12 (70-30) Insulin 100 00:00: unit/mL 00 subcutaneou s suspension lisinopril 1-0 No 1mg 5 mg tablet 2-12 00:00: 00 metformin 2021-0 No 1mg 500 mg 2-12 tablet 00:00: 00 Dose 2021-0 No Unknown 2-12 00:00: 00 fenofibrate 2020-1 No 1mg micronized 2-12 130 mg 00:00: capsule 00 fenofibrate 2020-1 No 1mg micronized 2-12 130 mg 00:00: capsule 00 fenofibrate 2020-1 No 1mg micronized 2-12 130 mg 00:00: capsule 00 Novolin 2020-1 No unit/mL 70/30 U-100 [...] lisinopril 2020-0 No 1mg 5 mg tablet 6-04 00:00: 00 metformin 2020-0 No 1mg 500 mg 6-04 tablet 00:00: 00 lovastatin 2020-0 No 1mg 40 mg 6-04 tablet 00:00: 00 Novolin 2020-0 No unit/mL 70/30 U-100 3-27 (70-30) Insulin 100 00:00: unit/mL 00 subcutaneou s suspension lisinopril 2020-0 No 1mg 5 mg tablet 3-27 00:00: 00 lisinopril 2020-0 No 1mg 5 mg tablet 3-27 00:00: 00 metformin 2020-0 No 2mg ER 500 mg 3-27 tablet,exte 00:00: nded 00 release 24hr (osmotic) lovastatin 2020-0 No 1mg 40 mg 3-27 tablet 00:00: 00 Novolin 2020-0 No unit/mL 70/30 U-100 3-27 (70-30) Insulin 100 00:00: unit/mL 00 subcutaneou s suspension lisinopril 2020-0 No 1mg 5 mg tablet 3-27 00:00: 00 lisinopril 2020-0 No 1mg 5 mg tablet 3 00:00: 00 metformin 2020-0 No 2mg ER 500 mg 3-27 tablet,exte 00:00: nded 00 release 24hr (osmotic) lovastatin 2020-0 No 1mg 40 mg 3-27 tablet 00:00: 00 Novolin 2020-0 No unit/mL 70/30 U-100 3-27 (70-30) Insulin 100 00:00: unit/mL 00 subcutaneou s suspension lisinopril 2020-0 No 1mg 5 mg tablet 3-27 00:00: 00 lisinopril 2020-0 No 1mg 5 mg tablet 3-27 00:00: 00 metformin 2020-0 No 2mg ER [...] the ity of insulin hm 09:33: skin. [place] (INSULIN 13 Medical 70/30 SC) Branch metformin 2018-02 Yes Take by Unive rs HCl 2-12 mouth. ity of (METFORMIN 09:33: [place] ORAL) [address] [place] [address] insulin NPH 2018-02 Yes inject Univ ers hum/reg 2-12 under the ity of insulin hm 09:33: skin. [place] (INSULIN 13 Medical 70/30 SC) Branch metformin 2018-02 Yes Take by Unive rs HCl 2-12 mouth. ity of (METFORMIN 09:33: [place] ORAL) [address] [place] [address] Novolin 2018-02 No unit/mL 70/30 U-100 1-22 (70-30) Insulin 100 00:00: unit/mL 00 subcutaneou s suspension lisinopril 2018-02 No 1mg 5 mg tablet 22 00:00: 00 metformin 2018-02 No 2mg ER 500 mg 1-22 tablet,exte 00:00: nded 00 release 24hr (osmotic) Novolin 2018-02 No unit/mL 70/30 U-100 -22 (70-30) Insulin 100 00:00: unit/mL 00 subcutaneou s suspension lisinopril 2018-02 No 1mg 5 mg tablet 22 00:00: 00 metformin 2018-02 No 2mg ER 500 mg 1-22 tablet,exte 00:00: nded 00 release 24hr (osmotic) lovastatin 2018-02 No 1mg 40 mg 1-22 tablet 00:00: 00 lovastatin 2018-02 No 1mg 40 mg 1-22 tablet 00:00: 00 Novolin 2018-02 No unit/mL 70/30 U-100 -22 (70-30) Insulin 100 00:00: unit/mL 00 subcutaneou s suspension lisinopril 2018-02 No 1mg 5 mg tablet 22 00:00: 00 metformin 2018-02 No 2mg ER 500 mg 1-22 tablet,exte 00:00: nded 00 release 24hr (osmotic) lovastatin 2018-02 No 1mg 40 mg 1-22 tablet 00:00: 00 lisinopril 2019-1 No 1mg 5 mg tablet 0-08 00:00: 00 lisinopril 2019-1 No 1mg 5 mg tablet 0-08 00:00: 00 lisinopril 2019-1 No 1mg 5 mg tablet 0-08 00:00: [...] 00:00: tablet,12 00 hr sustained-r elease lovastatin 2017-1 No 1mg 40 mg 1-05 tablet 00:00: 00 Levemir 2017-1 No unit/mL U-100 0-12 Insulin 100 00:00: unit/mL 00 subcutaneou s solution Levemir 2017-1 No unit/mL U-100 0-12 Insulin 100 00:00: unit/mL 00 subcutaneou s solution Levemir 2017-1 No unit/mL U-100 0-12 Insulin 100 00:00: unit/mL 00 subcutaneou s solution Levemir 2017-1 No unit/mL U-100 0-12 Insulin 100 00:00: unit/mL 00 subcutaneou s solution Levemir 2017-1 No unit/mL U-100 0-12 Insulin 100 00:00: unit/mL 00 subcutaneou s solution Levemir 2017-1 No unit/mL U-100 0-12 Insulin 100 00:00: unit/mL 00 subcutaneou s solution bupropion 2017-1 No 1mg HCl SR 150 0-03 mg 00:00: tablet,12 00 hr sustained-r elease bupropion 2017-1 No 1mg HCl SR 150 0-03 mg 00:00: tablet,12 00 hr sustained-r elease bupropion 2017-1 No 1mg HCl SR 150 0-03 mg 00:00: tablet,12 00 hr sustained-r elease Levemir 2018-0 No unit/mL U-100 9-26 Insulin 100 00:00: unit/mL 00 subcutaneou s solution Levemir 2017-0 No unit/mL U-100 9-26 Insulin 100 00:00: unit/mL 00 subcutaneou s solution lovastatin 2017-0 No 1mg 40 mg 9-26 tablet 00:00: 00 Levemir 2018-0 No unit/mL U-100 9-26 Insulin 100 00:00: unit/mL 00 subcutaneou s solution Levemir 2018-0 No unit/mL U-100 9-26 Insulin 100 00:00: unit/mL 00 subcutaneou s solution lovastatin 2017-0 No 1mg 40 mg 9-26 tablet 00:00: [...] Immunizations Ordered Filled Immunization Date Status Comments [facility] e Immunization Name Name Influenza, 2020-02-10 Completed seasonal, inj 00:00:00 Influenza, 2020-02-10 Completed seasonal, inj 00:00:00 Influenza, 2020-02-10 Completed seasonal, inj 00:00:00 Influenza Virus 2019-02-03 Completed Universit y of Vaccine Quad .5 mL 00:00:00 [facility] 6+ MO Branch Influenza Virus 2019-02-03 Completed Universit y of Vaccine Quad .5 mL 00:00:00 [facility] IM 6+ MO Branch Influenza Virus 2018-01-28 Completed Universit y of Vaccine Quad .5 mL 00:00:00 [facility] IM 6+ MO Branch Influenza Virus 2018-01-28 Completed Universit y of Vaccine Quad .5 mL 00:00:00 [facility] 6+ MO Branch TDAP 2014-03-23 Completed [facility] 00:00:00 [facility] TDAP 2014-03-23 Completed [facility] 00:00:00 [facility] Vital Signs Vital Name Observation Time Observation [...] Goal Plan of Care Note [code = 31667-5] Goal Plan of Care Note [code = 33821-8] Goal Plan of Care Note [code = 70999-5] Goal Plan of Care Note [code = 92154-4] Goal Plan of Care Note [code = 64117-6] Goal Plan of Care Note [code = 50917-1] Goal Plan of Care Note [code = 90366-9] Goal Plan of Care Note [code = 57727-4] Goal Plan of Care Note [code = 99957-9] Goal Plan of Care Note [code = 65219-1] Goal Plan of Care Note [code = 45721-8] Goal Plan of Care Note [code = 01919-2] Goal Plan of Care Note [code = 66557-4] Goal Plan of Care Note [code = 56786-3] Goal Plan of Care Note [code = 93850-9] Goal Plan of Care Note [code = 97235-6] Goal Plan of Care Note [code = 94363-0] Goal Plan of Care Note [code = 65303-5] Goal Plan of Care Note [code = 08882-1] Goal Plan of Care Note [code = 84554-5] Goal Plan of Care Note [code = 61786-3] Goal Plan of Care Note [code = 57934-2] Goal Plan of Care Note [code = 86634-4] Goal Plan of Care Note [code = 22727-0] Goal Plan of Care Note [code = 35048-0] Goal Plan of Care Note [code = 56169-3] Goal Plan of Care Note [code = 66788-4] Goal Plan of Care Note [code = 79581-2] Goal Plan of Care Note [code = 84053-7] Goal Plan of Care Note [code = 56874-0] Goal Plan of Care Note [code = 42319-6] Goal Plan of Care Note [code = 71764-0] Goal Plan of Care Note [code = 71006-8] Goal Plan of Care Note [code = 12358-8] Goal Plan of Care Note [code = 30341-9] Goal Plan of Care Note [code = 53285-6] Goal Plan of Care Note [code = 09732-4] Goal Plan of Care Note [code = 09382-3] Goal Plan of Care Note [code = 25350-0] Goal Plan of Care Note [code = 01665-3] Goal Plan of Care Note [code = 05132-1] Goal Plan of Care Note [code = 75082-3] Goal Plan of Care Note [code = 15147-2] Goal Plan of Care Note [code = 07384-9] Goal Plan of Care Note [code = 24728-0] Goal Plan of Care Note [code = 99805-6] Goal Plan of Care Note [code = 20231-1] Goal Plan of Care Note [code = 42707-6] Goal Plan of Care Note [code = 10745-6] Goal Plan of Care Note [code = 51488-1] Goal Plan of Care Note [code = 06397-7] Goal Plan of Care Note [code = 07700-4] Goal Plan of Care Note [code = 67947-5] Goal Plan of Care Note [code = 34701-2] Goal Plan of Care Note [code = 63448-8] Goal Plan of Care Note [code = 98366-1] Goal Plan of Care Note [code = 89477-2] Goal Plan of Care Note [code = 79315-8] Goal Plan of Care Note [code = 33776-1] Goal Plan of Care Note [code = 70089-0] Goal Plan of Care Note [code = 99648-4] Goal Plan of Care Note [code = 00035-7] Goal Plan of Care Note [code = 79368-1] Goal Plan of Care Note [code = 04605-0] Goal Plan of Care Note [code = 32376-8] Goal Plan of Care Note [code = 88672-7] Goal Plan of Care Note [code = 64194-4] Goal Plan of Care Note [code = 31483-0] Goal Plan of Care Note [code = 42017-5] Goal Plan of Care Note [code = 84235-1] Goal Plan of Care Note [code = 58241-9] Goal Plan of Care Note [code = 94752-6] Goal Plan of Care Note [code = 99271-7] Goal Plan of Care Note [code = 68712-9] Goal Plan of Care Note [code = 07321-3] Goal Plan of Care Note [code = 92781-3] Goal Plan of Care Note [code = 43808-8] Goal Plan of Care Note [code = 17294-3] Goal Plan of Care Note [code = 65574-7] Goal Plan of Care Note [code = 40047-2] Goal Plan of Care Note [code = 49449-8] Goal Plan of Care Note [code = 46182-3] Goal Plan of Care Note [code = 58228-1] Goal Plan of Care Note [code = 78806-7] Goal Plan of Care Note [code = 26457-4] Goal Plan of Care Note [code = 91086-2] Goal Plan of Care Note [code = 57574-3] Goal Plan of Care Note [code = 09183-9] Goal Plan of Care Note [code = 58790-8] Goal Plan of Care Note [code = 65317-8] Goal Plan of Care Note [code = 27560-4] Goal Plan of Care Note [code = 21559-5] Goal Plan of Care Note [code = 39527-5] Goal Plan of Care Note [code = 76034-7] Goal Plan of Care Note [code = 81405-4] Goal Plan of Care Note [code = 20738-7] Goal Plan of Care Note [code = 63131-1] Goal Plan of Care Note [code = 70006-0] Goal Plan of Care Note [code = 52088-9] Encounters Start End Encounter Admission Attending Care Care Encounter Source Date/Time Date/Time Type Type Clinicians Facility Department ID 2022-08-22 2022-08-[address] [facility] [id number] Univers 13:00:00 13:00:00 ity [facility] 2022-07-08 2022-07-08 Telephone [place] NMLYNDSAY [id number] Univers 00:00:00 00:00:00 Sury Bender WIND UP WORKER [id number] ity [facility] [id number] Billy as MATERNAL [id number] [facility] ical & CHILD [address] [place] [address] 2022-03-14 2022-03-14 Outpatient SFA SFA [id number] Jl 11:42:30 11:42:30 0120 [facility] 2022-03-13 2022-03-13 Outpatient SFA SFA [id number] Jl 15:56:56 15:56:56 0119 [facility] 2021-11-18 2021-11-18 Outpatient [id number] 00:00:00 00:00:00 Visit [id number]-4285 68f-4285-b -bff4-e01 ff4-e01f7b [id number] [id number] 2021-10-10 2021-10-10 Telephone [place] [facility] [id number] Univers 00:00:00 [facility]:00:00 [facility] WIND UP WORKER [id number] ity [facility] [id number] Billy as MATERNAL [id number] [facility] & CHILD [address] [place] [address] 2021-10-08 2021-10-08 Telephone [place] [facility] [id number] Univers 00:00:00 00:00:00 Porfirionda R WIND UP WORKER [id number] ity of [facility] [id number] Billy as MATERNAL [id number] [facility] & [address] 2021-09-09 2021-09-09 Outpatient [id number] 00:00:00 00:00:00 Visit 5710-46a0 710-46a0-8 -8ace-51a juanita-51ab6a z9cy19ufd d09cee 2021-08-30 2021-08-30 Outpatient [id number] 00:00:00 00:00:00 Visit 9dbd-41b0 dbd-41b0-b -su74-73n [id number] [id number] 2021-08-27 2021-08-27 Telephone [facility] [id number] [facility] 00:00:00 00:00:00 Maria Victoria Obando WIND UP WORKER [id number] ity of [facility] [id number] Billy as MATERNAL [id number] [address] 2021-08-16 2021-08-16 [facility]patient [facility] [id number] Univers 09:00:00 09:54:52 PORFIRIONDYazmin riley o f [facility] 2021-08-16 2021-08-16 [facility] [id number] Univers 09:00:00 09:54:52 Visit Sury Bender WIND UP WORKER [id number] ity of [facility] [id number] Billy as MATERNAL [id number] [facility] & [address] 2021-08-16 2021-08-16 Outpatient [facility] [id number] Univers 09:00:00 09:00:00 MAKIA ity o f [facility] 2021-08-16 2021-08-[address] [facility] [id number] Univers 08:30:00 08:30:00 SURY ity o f [facility] 2021-08-16 2021-08-16 Orders Doctor RAY [id number] Univers 00:00:00 00:00:00 Only Unassigned, [place] [id number] ity of [place] [facility] 4.2.7.2.686 Billy as [id number] [address] 2021-07-28 2021-07-28 [facility] [id number] Univers 00:00:00 00:00:00 Sury R WIND UP WORKER [id number] ity of [facility] [id number] Billy as MATERNAL [id number] [facility] & CHILD [address] [place] [address] 2020-06-27 2020-06-27 [facility] [id number] Univers 00:00:00 00:00:00 Maria Victoria Obando WIND UP WORKER [id number] ity of [facility] [id number] Billy as MATERNAL [id number] [facility] ica & CHILD [address] [place] [address] 2020-05-22 2020-05-22 [facility] [id number] 00:00:00 00:00:00 Sury Bender WIND UP WORKER [id number] [facility] 4.2.7.2.686 MATERNAL [id number] & CHILD [address] [place] [address] 2020-05-22 2020-05-22 [facility]montez [facility] [id number] Univers 00:00:00 00:00:00 Sury R WIND UP WORKER [id number] ity of [facility] 4.2.7.2.686 Billy as MATERNAL [id number] [facility] & CHILD [address] [place] [address] 2020-05-21 2020-05-21 [facility] [id number] 00:00:00 00:00:00 Maria Victoria C WIND UP WORKER [id number] REGIONAL 4.2.7.2.686 MATERNAL [id number] & CHILD [address] [place] [address] 2020-05-21 2020-05-21 [facility] [id number] Univers 00:00:00 00:00:00 Maria Victoria C WIND UP WORKER [id number] ity of REGIONAL 4.2.7.2.686 Billy as MATERNAL [id number] [facility] & CHILD [address] [place] [address] 2020-04-03 2020-04-[address] [facility] [id number] Univers 00:00:00 00:00:00 SURY [place] [facility] 2020-03-06 2020-03-[address] [facility] [id number] 00:00:00 00:00:00 Rosnda R WIND UP WORKER [id number] REGIONAL 4.2.7.2.686 MATERNAL [id number] & CHILD [address] [place] [address] 2020-03-06 2020-03-[address] [facility] [id number] [facility] 00:00:00 00:00:00 Rosnda R WIND UP WORKER [id number] ity of REGIONAL 4.2.7.2.686 Billy as MATERNAL [id number] [facility] & CHILD [address] [place] [address] 2020-03-02 2020-03-02 [facility] [id number] Univers 09:22:04 10:49:08 [facility] WORK[facility] [id number] ity of REGIONAL 4.2.7.2.686 Billy as MATERNAL [id number] [facility] & CHILD [address] [place] [address] 2020-03-02 2020-03-[address] [facility] [id number] Univers 09:30:00 09:30:00 SURY [place] [facility] 2020-03-02 2020-03-[address] [facility] [id number] Univers 09:30:00 09:30:00 SURY estraday o f [facility] 2020-03-02 2020-03-[address] [facility] [id number] Univers 09:00:00 09:00:00 MARIA VICTORIA ity o f [facility] 2020-03-02 2020-03-02 Orders Doctor RAY [id number] Univers 00:00:00 00:00:00 Only Unassigned, CHEYANNE 350.1.13.10 ity of [facility] 4.2.7.2.686 Billy as [phone] [address] 2020-02-29 2020-02-29 Telephone [facility] 1.2.840.114 [id number] Univers 00:00:00 00:00:00 Maria Victoria C [employer] WORK[employer] 350.1.13.10 ity of [facility] 4.2.7.2.686 Billy as MATERNAL [phone] [facility] & CHILD [address] [place] [address] 2020-02-29 2020-02-29 Refill [facility] 1.2.692.683 [id number] Univers 00:00:00 00:00:00 Maria Victoria C WIND UP WORKER 350.1.13.10 ity of [facility] 4.2.7.2.686 Billy as MATERNAL [id number] [facility] & [address] 2019-12-30 2019-12-30 Orders Doctor RAY 1.2.840.114 [id number] Univers 00:00:00 00:00:00 Only Unassigned, CHEYANNE 350.1.13.10 ity of [facility] [facility] 4.2.7.2.686 Billy as [phone] [address] 2019-08-02 2019-08-[address] [facility] 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 350.1.13.10 ity of [facility] 4.2.7.2.686 Billy as MATERNAL [phone] [facility] & CHILD [address] [place] [address] Results Test Description Test Time Test Comments Results Result Comments Source COMPREHENSIVE METABOLIC PANEL 2022-03-15 06:45:27 Test Item Value Reference Range Interpretation Comme nts GLUCOSE (test code = 2217) 156 MG/DL 70-99 H BUN (test code = 2208) 5 MG/DL 6-20 L CREATININE (test code = 0.53 MG/DL 0.60-1.30 L 2213) eGFR (2020 CKD-EPI) (test 114 ML/MIN/1.73 >60 code = 64868) CALC BUN/CREAT (test code = 9 RATIO 6-28 2234) SODIUM (test code = 2231) 139 MEQ/L 133-146 POTASSIUM (test code = 2228) 3.9 MEQ/L 3.5-5.4 CHLORIDE (test code = 2215) 102 MEQ/L 95-107 CARBON DIOXIDE (test code = 22 MEQ/L 19-31 2205) CALCIUM (test code = 2209) 9.4 MG/DL 8.5-10.5 PROTEIN, TOTAL (test code = 6.7 G/DL 6.1-8.3 2228) ALBUMIN (test code = 2201) 4.4 G/DL 3.5-5.2 CALC GLOBULIN (test code = 2.3 G/DL 1.9-3.7 2239) CALC A/G RATIO (test code = 1.9 RATIO 1.0-2.6 2233) BILIRUBIN, TOTAL (test code 0.4 MG/DL See_Comment [Automated message] The = 2206) system which ge nerated this result transmit charlotte reference range : <=1.2. The reference range was not used to interpr et this result as kristy l/abnormal. ALKALINE PHOSPHATASE (test 92 U/L 40-123 code = 2204) AST (test code = 2218) 18 U/L 9-40 ALT (test code = 2219) 25 U/L 5-40 LIPID [id number] 06:45:27 Test Item Value Reference Range Interpretation Comments CHOLESTEROL (test 268 MG/DL <200 H code = 2210) TRIGLYCERIDES (test 532 MG/DL <150 H code = 2232) HDL CHOLESTEROL 45 MG/DL >39 (test code = 2220) CALC LDL CHOL [...] MOREINFORMATION , SEE CLIENT ANNOUNCE MENT AT [email or web address] CalcLDL-C RISK RATIO LDL/HDL (NOTE) RATIO <3.22 UNABLE T O CALCULATE (test code = 2238) HEMOGLOBIN [id number] 03:11:31 Test Item Value Reference Range Interpretation Comments HEMOGLOBIN A1c (test 7.6 % 4.2-5.6 H AMERIC AN DIABETES code = 88585) ASSOCIATION IDELINES FOR HGB A1C: PREDIABETES/INC REASED [...] ALTERN ATE TESTING OR LABORATORY C ONSULTATION. UNLESS OTHERWIS E INDICATED, ALL TESTING PER FORMED ATCLINICAL PATH OLOGY LABORATORIES, I [place]. [address] [address] LABORATORY DIRE CTOR: MARLENE GONZALEZ M.D. CLIA NUMBER [id number] [facility] [place]. [id number] CBC W/AUTO DIFF WITH [id number] 02:40:09 Test Item Value Reference Range Interpretation Comments WBC (test code = 9.0 K/UL 3.5-11.0 1001) RBC (test code = 4.58 M/UL 3.80-5.40 1002) HEMOGLOBIN (test code 13.5 G/DL 11.5-15.5 = 1003) HEMATOCRIT (test code 39.9 % 34.0-45.0 = 1004) MCV (test code = 87.1 fL 80.0-99.0 1005) MCH (test code = 29.5 PG 25.0-33.0 1006) MCHC (test code = 33.8 G/DL 31.0-36.0 1007) RDW (test code = 13.1 % 11.5-15.0 1038) NEUTROPHILS (test 64.6 % code = 1008) LYMPHOCYTES (test 27.2 % code = 1010) MONOCYTES (test code 5.7 % = 1011) EOSINOPHILS (test 1.9 % code = 1012) BASOPHILS (test code 0.2 % = 1013) IMMATURE GRANULOCYTES 0.4 % (test code = 1036) NUCLEATED RBCS (test 0.0 /100 WBC'S See_Comment [Aut omated code = 1065) message] The sy stem which generated this result transmitted reference range : 0.0. The refere nce range was not u sed to interpret th is result as normal/abnormal . PLATELET COUNT (test 295 K/UL 130-400 code = 1015) ABSOLUTE NEUTROPHILS 5.81 K/UL 1.50-7.50 (test code = 1066) ABSOLUTE LYMPHOCYTES 2.45 K/UL 1.00-4.00 (test code = 1067) ABSOLUTE MONOCYTES 0.51 K/UL 0.20-1.00 (test code = 1068) ABSOLUTE EOSINOPHILS 0.17 K/UL 0.00-0.50 (test code = 1040) ABSOLUTE BASOPHILS 0.02 K/UL 0.00-0.20 (test code = 1069) ABS IMMATURE 0.04 K/UL 0.00-0.10 GRANULOCYTES (test code = 1020) ABS NUCLEATED RBCS 0.00 K/UL 0.00-0.11 (test code = 20238) LIPID [id number] 04:31:34 Test Item Value Reference Range Interpretation Comments CHOLESTEROL (test 289 MG/DL <200 H code = 2210) TRIGLYCERIDES (test 1152 MG/DL <150 H SPE CIMEN LIPEMIC code = 2232) RESULTS RECHECK ED AND VERIFIED HDL CHOLESTEROL 29 MG/DL >39 L (test code = 2220) [...] MOREINFORMATION , SEE CLIENT ANNOUNCE MENT AT [email or web address] CalcLDL-C RISK RATIO LDL/HDL (NOTE) RATIO <3.22 UNABLE T O CALCULATE (test code = 2238) COMPREHENSIVE METABOLIC [id number] 04:31:34 Test Item Value Reference Range Interpretation Comments GLUCOSE (test code = 103 MG/DL 70-99 H 2216) BUN (test code = 7 MG/DL 6-20 2207) CREATININE (test 0.53 MG/DL 0.60-1.30 L code = 2214) eGFR (2020 CKD-EPI) 114 >60 (test code = 05621) ML/MIN/1.73 CALC BUN/CREAT (test 13 RATIO 6-28 code = 2235) SODIUM (test code = 140 MEQ/L 043-409 4619) POTASSIUM (test code 3.9 MEQ/L 3.5-5.4 = 2227) CHLORIDE (test code 105 MEQ/L 95-107 = 2214) CARBON DIOXIDE (test 22 MEQ/L 19-31 code [...] PHOSPHATASE 74 U/L 40-123 (test code = 2203) AST (test code = 20 U/L 9-40 2217) ALT (test code = 25 U/L 5-40 UNLESS OTH ERWISE 2218) INDICATED, ALL TESTING PERFORM ED ATCLINICAL PATH OLOGY LABORATORIES, [facility]. [address] [place] [id number] [place] [address] DIRECTOR: MARLENE GONZALEZ M.D. CLIA NUMBER [id number] CAP ACCREDITATION N O. [id number] HEMOGLOBIN [id number] 03:56:58 Test Item Value Reference Range Interpretation Comments HEMOGLOBIN A1c (test 7.6 % 4.2-5.6 H AMERIC AN DIABETES code = 84011) ASSOCIATION IDELINES FOR HGB A1C: PREDIABETES/INC REASED [...] ATE TESTING OR LABORATORY C ONSULTATION. LIPID [id number] 00:00:00 Test Item Value Reference Range Interpretation Comments CHOLESTEROL (test code = 2210) 289 MG/DL TRIGLYCERIDES (test code = 2232) 1152 MG/DL HDL CHOLESTEROL (test code = 29 MG/DL 0) CALC LDL CHOL (test code = 2237) (NOTE) MG/DL RISK RATIO LDL/HDL (test code = (NOTE) RATIO 2238) LIPID [id number] 00:00:00 Test Item Value Reference Range Interpretation Comments CHOLESTEROL (test code = 2210) 289 MG/DL TRIGLYCERIDES (test code = 2232) 1152 MG/DL HDL CHOLESTEROL (test code = 29 MG/DL 2220) CALC LDL CHOL (test code = 2237) (NOTE) MG/DL RISK RATIO LDL/HDL (test code = (NOTE) RATIO 2238) HEMOGLOBIN [id number] 00:00:00 Test Item Value Reference Range Interpretation Comments HEMOGLOBIN A1c (test code = 83037) 7.6 % HEMOGLOBIN [id number] 00:00:00 Test Item Value Reference Range Interpretation Comments HEMOGLOBIN A1c (test code = 08447) 7.6 % HEMOGLOBIN [id number] 00:00:00 Test Item Value Reference Range Interpretation Comments HEMOGLOBIN A1c (test code = 63280) 7.6 % COMPREHENSIVE METABOLIC [id number] 00:00:00 Test Item Value Reference Range Interpretation Comments GLUCOSE (test code = 2217) 103 MG/DL BUN (test code = 2208) 7 MG/DL CREATININE (test code = 2214) 0.53 MG/DL eGFR (2020 CKD-EPI) (test 114 ML/MIN/1.73 code = 72526) CALC BUN/CREAT (test code = 13 RATIO [...] CALC GLOBULIN (test code = 2.2 G/DL 0) CALC A/G RATIO (test code = 1.9 RATIO 2234) BILIRUBIN, TOTAL (test code = 0.3 MG/DL 2206) ALKALINE PHOSPHATASE (test 74 U/L code = 2204) AST (test code = 2218) 20 U/L ALT (test code = 2219) 25 U/L COMPREHENSIVE METABOLIC [id number] 00:00:00 Test Item Value Reference Range Interpretation Comments GLUCOSE (test code = 2217) 103 MG/DL BUN (test code = 2208) 7 MG/DL CREATININE (test code = 2214) 0.53 MG/DL eGFR (2020 CKD-EPI) (test 114 ML/MIN/1.73 code = 68923) CALC BUN/CREAT (test code = 13 RATIO [...] (test code = 2219) 25 U/L LIPID [id number] 00:00:00 Test Item Value Reference Range Interpretation Comments CHOLESTEROL (test code = 2210) 289 MG/DL TRIGLYCERIDES (test code = 2232) 1152 MG/DL HDL CHOLESTEROL (test code = 29 MG/DL 2220) CALC LDL CHOL (test code = 2237) (NOTE) MG/DL RISK RATIO LDL/HDL (test code = (NOTE) RATIO 2238) LIPID [id number] 00:00:00 Test Item Value Reference Range Interpretation Comments CHOLESTEROL (test code = 2210) 289 MG/DL TRIGLYCERIDES (test code = 2232) 1152 MG/DL HDL CHOLESTEROL (test code = 29 MG/DL 2220) CALC LDL CHOL (test code = 2237) (NOTE) MG/DL RISK RATIO LDL/HDL (test code = (NOTE) RATIO 2238) HEMOGLOBIN [id number] 00:00:00 Test Item Value Reference Range Interpretation Comments HEMOGLOBIN A1c (test code = 41925) 7.6 % HEMOGLOBIN [id number] 00:00:00 Test Item Value Reference Range Interpretation Comments HEMOGLOBIN A1c (test code = 08638) 7.6 % HEMOGLOBIN [id number] 00:00:00 Test Item Value Reference Range Interpretation Comments HEMOGLOBIN A1c (test code = 03111) 7.6 % COMPREHENSIVE METABOLIC [id number] 00:00:00 Test Item Value Reference Range Interpretation Comments GLUCOSE (test code = 2217) 103 MG/DL BUN (test code = 2208) 7 MG/DL CREATININE (test code = 2214) 0.53 MG/DL eGFR (2020 CKD-EPI) (test 114 ML/MIN/1.73 code = 68947) CALC BUN/CREAT (test code = 13 RATIO 2235) SODIUM (test code = 2231) 140 MEQ/L POTASSIUM (test code = 2228) 3.9 MEQ/L CHLORIDE (test code = 2215) 105 MEQ/L CARBON DIOXIDE (test code = 22 MEQ/L 220) CALCIUM (test code = 2209) 9.0 MG/DL PROTEIN, TOTAL (test code = 6.3 G/DL 2228) ALBUMIN (test code = 2201) 4.1 G/DL CALC GLOBULIN (test code = 2.2 G/DL 224) CALC A/G RATIO (test code = 1.9 RATIO 223) BILIRUBIN, TOTAL (test code = 0.3 MG/DL 2206) ALKALINE PHOSPHATASE (test 74 U/L code = 2204) AST (test code = 2218) 20 U/L ALT (test code = 2219) 25 U/L COMPREHENSIVE METABOLIC [id number] 00:00:00 Test Item Value Reference Range Interpretation Comments GLUCOSE (test code = 2217) 103 MG/DL BUN (test code = 2208) 7 MG/DL CREATININE (test code = 2214) 0.53 MG/DL eGFR (2020 CKD-EPI) (test 114 ML/MIN/1.73 code = 30350) CALC BUN/CREAT (test code = 13 RATIO 2235) SODIUM (test code = 2231) 140 MEQ/L POTASSIUM (test code = 2228) 3.9 MEQ/L CHLORIDE (test code = 2215) 105 MEQ/L CARBON DIOXIDE (test code = 22 MEQ/L 220) CALCIUM (test code = 2209) 9.0 MG/DL PROTEIN, TOTAL (test code = 6.3 G/DL 2228) ALBUMIN (test code = 2201) 4.1 G/DL CALC GLOBULIN (test code = 2.2 G/DL 2240) CALC A/G RATIO (test code = 1.9 RATIO 2234) BILIRUBIN, TOTAL (test code = 0.3 MG/DL 7) ALKALINE PHOSPHATASE (test 74 U/L code = 2204) AST (test code = 2218) 20 U/L ALT (test code = 2219) 25 U/L ALBUMIN/CREATININE RATIO, URINE, [id number] 06:08:56 Test Item Value Reference Range Interpretation Comments CREATININE, URINE, 170.9 MG/DL NOT ESTAB RANDOM (test code = 2) ALBUMIN, URINE, 45.7 MG/DL NOT ESTAB RANDOM (test code = 32854) CALC ALBUMIN/CREAT, 267 MG/G <30 H Note: RND (test code = Albumin/Cre atinine 34964) ratio reference interval reflec ts ADA and NKF guideli des. VITAMIN D, 25 [id number] 04:23:26 Test Item Value Reference Range Interpretation [...] . . NG/ML 30-100 MICROALBUMIN/CREATININE, RANDOM AND [id number] 00:00:00 Test Item Value Reference Range Interpretation Comments CREATININE, URINE, RANDOM (test 170.9 MG/DL code = 2) ALBUMIN, URINE, RANDOM (test code 45.7 MG/DL = 30827) CALC ALBUMIN/CREAT, RND (test 267 MG/G code = 79058) VITAMIN D, 25 [id number] 00:00:00 Test Item Value Reference Range Interpretation Comments VITAMIN D, 25 OH (test code = 4958) 9 NG/ML MICROALBUMIN/CREATININE, RANDOM AND [id number] 00:00:00 Test Item Value Reference Range Interpretation Comments CREATININE, URINE, RANDOM (test 170.9 MG/DL code = 2072) ALBUMIN, URINE, RANDOM (test code 45.7 MG/DL = 74406) CALC ALBUMIN/CREAT, RND (test 267 MG/G code = 58530) MICROALBUMIN/CREATININE, RANDOM AND [id number] 00:00:00 Test Item Value Reference Range Interpretation Comments CREATININE, URINE, RANDOM (test 170.9 MG/DL code = 2072) ALBUMIN, URINE, RANDOM (test code 45.7 MG/DL = 12743) CALC ALBUMIN/CREAT, RND (test 267 MG/G code = 95818) VITAMIN D, 25 [id number] 00:00:00 Test Item Value Reference Range Interpretation Comments VITAMIN D, 25 OH (test code = 4958) 9 NG/ML VITAMIN D, 25 [id number] 00:00:00 Test Item Value Reference Range Interpretation Comments VITAMIN D, 25 OH (test code = 4958) 9 NG/ML MICROALBUMIN/CREATININE, RANDOM AND [id number] 00:00:00 Test Item Value Reference Range Interpretation Comments CREATININE, URINE, RANDOM (test 170.9 MG/DL code = 2072) ALBUMIN, URINE, RANDOM (test code 45.7 MG/DL = 79017) CALC ALBUMIN/CREAT, RND (test 267 MG/G code = 52478) MICROALBUMIN/CREATININE, RANDOM AND [id number] 00:00:00 Test Item Value Reference Range Interpretation Comments CREATININE, URINE, RANDOM (test 170.9 MG/DL code = 2072) ALBUMIN, URINE, RANDOM (test code 45.7 MG/DL = 87435) CALC ALBUMIN/CREAT, RND (test 267 MG/G code = 08693) VITAMIN D, 25 [id number] 00:00:00 Test Item Value Reference Range Interpretation Comments VITAMIN D, 25 OH (test code = 4958) 9 NG/ML VITAMIN D, 25 [id number] 00:00:00 Test Item Value Reference Range Interpretation Comments VITAMIN D, 25 OH (test code = 4958) 9 NG/ML COMPREHENSIVE METABOLIC [id number] 22:05:35 Test Item Value Reference Range Interpretation Comments GLUCOSE (test code = 240 MG/DL 70-99 H 2216) BUN (test code = 9 MG/DL 6-20 2207) CREATININE (test 0.47 MG/DL 0.60-1.30 L code = 2213) eGFR (2020 CKD-EPI) 118 >60 (test code = 87425) ML/MIN/1.73 CALC BUN/CREAT (test 19 RATIO 6-28 code = 2234) SODIUM (test code = 134 MEQ/L 338-602 2998) POTASSIUM (test code 4.4 MEQ/L 3.5-5.4 = [...] RATIO (test 1.7 RATIO 1.0-2.6 code = 2233) BILIRUBIN, TOTAL 0.3 MG/DL See_Comment [Automated message] [...] = 49 U/L 5-40 H 2218) IRON, [id number] 22:05:35 Test Item Value Reference Range Interpretation Comments IRON, SERUM (test 91 UG/DL 37-145 UNLESS OT HERWISE code = 2222) INDICATED, ALL TESTING PERFORMED ATCLI NICAL PATHOLOGY [facility] [employer] [address] [place] [address] CHARLIE ROMEO DIRECTOR: MARLENE GONZALEZ M.D. CLIA NUMBER [id number] CAP ACCREDITATION N O. [id number] LIPID [id number] 22:05:35 Test Item Value Reference Range Interpretation [...] MOREINFORMATION , SEE CLIENT ANNOUNCE MENT AT [email or web address] CalcLDL-C RISK RATIO LDL/HDL (NOTE) RATIO <3.22 UNABLE T O CALCULATE (test code = 2238) VITAMIN [id number] 05:31:10 Test Item Value Reference Range Interpretation Comments VITAMIN B-12 (test code = 2840) >2000 PG/ML 200-950 H COMPREHENSIVE METABOLIC [id number] 00:00:00 Test Item Value Reference Range Interpretation Comments GLUCOSE (test code = 2217) 240 MG/DL BUN (test code = 2208) 9 MG/DL CREATININE (test code = 2214) 0.47 MG/DL eGFR (2020 CKD-EPI) (test 118 ML/MIN/1.73 code = 50902) CALC BUN/CREAT (test code = 19 RATIO [...] (test code = 2219) 49 U/L VITAMIN [id number] 00:00:00 Test Item Value Reference Range Interpretation Comments VITAMIN B-12 (test code = 2840) >2000 PG/ML VITAMIN [id number] 00:00:00 Test Item Value Reference Range Interpretation Comments VITAMIN B-12 (test code = 2840) >2000 PG/ML IRON, [id number] 00:00:00 Test Item Value Reference Range Interpretation Comments IRON, SERUM (test code = 2222) 91 UG/DL LIPID [id number] 00:00:00 Test Item Value Reference Range Interpretation Comments CHOLESTEROL (test code = 2210) 814 MG/DL TRIGLYCERIDES (test code = 2232) 549 MG/DL HDL CHOLESTEROL (test code = 20 MG/DL 2220) CALC LDL CHOL (test code = 2237) (NOTE) MG/DL RISK RATIO LDL/HDL (test code = (NOTE) RATIO 2238) LIPID [id number] 00:00:00 Test Item Value Reference Range Interpretation Comments CHOLESTEROL (test code = 2210) 814 MG/DL TRIGLYCERIDES (test code = 2232) 549 MG/DL HDL CHOLESTEROL (test code = 20 MG/DL 2220) CALC LDL CHOL (test code = 2237) (NOTE) MG/DL RISK RATIO LDL/HDL (test code = (NOTE) RATIO 2238) COMPREHENSIVE METABOLIC [id number] 00:00:00 Test Item Value Reference Range Interpretation Comments GLUCOSE (test code = 2217) 240 MG/DL BUN (test code = 2208) 9 MG/DL CREATININE (test code = 2214) 0.47 MG/DL eGFR (2020 CKD-EPI) (test 118 ML/MIN/1.73 code = 01465) CALC BUN/CREAT (test code = 19 RATIO [...] code = 2219) 49 U/L COMPREHENSIVE METABOLIC [id number] 00:00:00 Test Item Value Reference Range Interpretation Comments GLUCOSE (test code = 2217) 240 MG/DL BUN (test code = 2208) 9 MG/DL CREATININE (test code = 2214) 0.47 MG/DL eGFR (2020 CKD-EPI) (test 118 ML/MIN/1.73 code = 04754) CALC BUN/CREAT (test code = 19 RATIO [...] (test code = 2219) 49 U/L VITAMIN [id number] 00:00:00 Test Item Value Reference Range Interpretation Comments VITAMIN B-12 (test code = 2840) >2000 PG/ML VITAMIN [id number] 00:00:00 Test Item Value Reference Range Interpretation Comments VITAMIN B-12 (test code = 2840) >2000 PG/ML VITAMIN [id number] 00:00:00 Test Item Value Reference Range Interpretation Comments VITAMIN B-12 (test code = 2840) >2000 PG/ML IRON, [id number] 00:00:00 Test Item Value Reference Range Interpretation Comments IRON, SERUM (test code = 2222) 91 UG/DL IRON, [id number] 00:00:00 Test Item Value Reference Range Interpretation Comments IRON, SERUM (test code = 2222) 91 UG/DL LIPID [id number] 00:00:00 Test Item Value Reference Range Interpretation Comments CHOLESTEROL (test code = 2210) 814 MG/DL TRIGLYCERIDES (test code = 2232) 549 MG/DL HDL CHOLESTEROL (test code = 20 MG/DL 2220) CALC LDL CHOL (test code = 2237) (NOTE) MG/DL RISK RATIO LDL/HDL (test code = (NOTE) RATIO 2238) LIPID [id number] 00:00:00 Test Item Value Reference Range Interpretation Comments CHOLESTEROL (test code = 2210) 814 MG/DL TRIGLYCERIDES (test code = 2232) 549 MG/DL HDL CHOLESTEROL (test code = 20 MG/DL 2220) CALC LDL CHOL (test code = 2237) (NOTE) MG/DL RISK RATIO LDL/HDL (test code = (NOTE) RATIO 2238) COMPREHENSIVE METABOLIC [id number] 00:00:00 Test Item Value Reference Range Interpretation Comments GLUCOSE (test code = 2217) 240 MG/DL BUN (test code = 2208) 9 MG/DL CREATININE (test code = 2214) 0.47 MG/DL eGFR (2020 CKD-EPI) (test 118 ML/MIN/1.73 code = 97637) CALC BUN/CREAT (test code = 19 RATIO [...] code = 2219) 49 U/L COMPREHENSIVE METABOLIC [id number] 00:00:00 Test Item Value Reference Range Interpretation Comments GLUCOSE (test code = 2217) 240 MG/DL BUN (test code = 2208) 9 MG/DL CREATININE (test code = 2214) 0.47 MG/DL eGFR (2020 CKD-EPI) (test 118 ML/MIN/1.73 code = 45964) CALC BUN/CREAT (test code = 19 RATIO [...] (test code = 2219) 49 U/L VITAMIN [id number] 00:00:00 Test Item Value Reference Range Interpretation Comments VITAMIN B-12 (test code = 2840) >2000 PG/ML VITAMIN [id number] 00:00:00 Test Item Value Reference Range Interpretation Comments VITAMIN B-12 (test code = 2840) >2000 PG/ML VITAMIN [id number] 00:00:00 Test Item Value Reference Range Interpretation Comments VITAMIN B-12 (test code = 2840) >2000 PG/ML IRON, [id number] 00:00:00 Test Item Value Reference Range Interpretation Comments IRON, SERUM (test code = 2222) 91 UG/DL IRON, [id number] 00:00:00 Test Item Value Reference Range Interpretation Comments IRON, SERUM (test code = 2222) 91 UG/DL LIPID [id number] 00:00:00 Test Item Value Reference Range Interpretation Comments CHOLESTEROL (test code = 2210) 814 MG/DL TRIGLYCERIDES (test code = 2232) 549 MG/DL HDL CHOLESTEROL (test code = 20 MG/DL 2220) CALC LDL CHOL (test code = 2237) (NOTE) MG/DL RISK RATIO LDL/HDL (test code = (NOTE) RATIO 2238) CBC W/AUTO DIFF WITH [id number] 03:36:44 Test Item Value Reference Range Interpretation [...] RBCS 0.02 K/UL 0.00-0.11 (test code = 75669) HEMOGLOBIN [id number] 03:25:41 Test Item Value Reference Range Interpretation Comments HEMOGLOBIN A1c (test 8.7 % 4.2-5.6 H [employer] AN DIABETES code = 04459) ASSOCIATION IDELINES FOR HGB A1C: PREDIABETES/INC REASED [...] ATE TESTING OR LABORATORY C ONSULTATION. HEMOGLOBIN [id number] 00:00:00 Test Item Value Reference Range Interpretation Comments HEMOGLOBIN A1c (test code = 73204) 8.7 % HEMOGLOBIN [id number] 00:00:00 Test Item Value Reference Range Interpretation Comments HEMOGLOBIN A1c (test code = 78936) 8.7 % CBC W/AUTO [id number] 00:00:00 Test Item Value Reference Range Interpretation [...] NUCLEATED RBCS (test code = 0.02 K/UL 70162) CBC W/AUTO [id number] 00:00:00 Test Item Value Reference Range Interpretation [...] NUCLEATED RBCS (test code = 0.02 K/UL 03890) HEMOGLOBIN [id number] 00:00:00 Test Item Value Reference Range Interpretation Comments HEMOGLOBIN A1c (test code = 93120) 8.7 % HEMOGLOBIN [id number] 00:00:00 Test Item Value Reference Range Interpretation Comments HEMOGLOBIN A1c (test code = 67374) 8.7 % HEMOGLOBIN [id number] 00:00:00 Test Item Value Reference Range Interpretation Comments HEMOGLOBIN A1c (test code = 48177) 8.7 % CBC W/AUTO [id number] 00:00:00 Test Item Value Reference Range Interpretation [...] NUCLEATED RBCS (test code = 0.02 K/UL 94582) CBC W/AUTO [id number] 00:00:00 Test Item Value Reference Range Interpretation [...] NUCLEATED RBCS (test code = 0.02 K/UL 24893) CBC W/AUTO [id number] 00:00:00 Test Item Value Reference Range Interpretation [...] NUCLEATED RBCS (test code = 0.02 K/UL 66978) HEMOGLOBIN [id number] 00:00:00 Test Item Value Reference Range Interpretation Comments HEMOGLOBIN A1c (test code = 47424) 8.7 % HEMOGLOBIN [id number] 00:00:00 Test Item Value Reference Range Interpretation Comments HEMOGLOBIN A1c (test code = 61631) 8.7 % HEMOGLOBIN [id number] 00:00:00 Test Item Value Reference Range Interpretation Comments HEMOGLOBIN A1c (test code = 42818) 8.7 % CBC W/AUTO [id number] 00:00:00 Test Item Value Reference Range Interpretation [...] NUCLEATED RBCS (test code = 0.02 K/UL 97175) CBC W/AUTO [id number] 00:00:00 Test Item Value Reference Range Interpretation [...] NUCLEATED RBCS (test code = 0.02 K/UL 90013) CBC W/AUTO [id number] 00:00:00 Test Item Value Reference Range Interpretation [...] NUCLEATED RBCS (test code = 0.02 K/UL 21767) [id number] 04:11:20 Test Item Value Reference Range Interpretation Comments LIPASE (test code = 2057) 18 U/L 13-60 [id number] 04:11:20 Test Item Value Reference Range Interpretation Comments AMYLASE (test code = 41 U/L 28-100 UNLESS OTHERWISE 2205) INDICATED, ALL TESTING PERFORMED [facility] [address] [place] [address] DIRECTOR: MARLENE GONZALEZ M.D. CLIA NUMBER [id number] CAP ACCREDITATION N O. [id number] 00:00:00 Test Item Value Reference Range Interpretation Comments AMYLASE (test code = 2205) 41 U/L [id number] 00:00:00 Test Item Value Reference Range Interpretation Comments LIPASE (test code = 2057) 18 U/L [id number] 00:00:00 Test Item Value Reference Range Interpretation Comments LIPASE (test code = 2057) 18 U/L [id number] 00:00:00 Test Item Value Reference Range Interpretation Comments LIPASE (test code = 2057) 18 U/L [id number] 00:00:00 Test Item Value Reference Range Interpretation Comments AMYLASE (test code = 2205) 41 U/L [id number] 00:00:00 Test Item Value Reference Range Interpretation Comments AMYLASE (test code = 2204) 41 U/L [id number] 00:00:00 Test Item Value Reference Range Interpretation Comments LIPASE (test code = 2057) 18 U/L [id number] 00:00:00 Test Item Value Reference Range Interpretation Comments LIPASE (test code = 2057) 18 U/L [id number] 00:00:00 Test Item Value Reference Range Interpretation Comments LIPASE (test code = 2057) 18 U/L [id number] 00:00:00 Test Item Value Reference Range Interpretation Comments AMYLASE (test code = 2204) 41 U/L [id number] 00:00:00 Test Item Value Reference Range Interpretation Comments AMYLASE (test code = 2204) 41 U/L [id number] 00:00:00 Test Item Value Reference Range Interpretation Comments LIPASE (test code = 2057) 18 U/L [id number] 00:00:00 Test Item Value Reference Range Interpretation Comments LIPASE (test code = 2057) 18 U/L HEMOGLOBIN [id number] 05:11:03 Test Item Value Reference Range Interpretation Comments HEMOGLOBIN A1c (test 8.2 % 4.2-5.6 H AMERIC AN DIABETES code = 95658) ASSOCIATION [employer] FOR HGB A1C: PREDIABETES/INC REASED [...] ATE TESTING OR LABORATORY C ONSULTATION. LIPID [id number] 04:59:22 Test Item Value Reference Range Interpretation [...] MOREINFORMATION , SEE CLIENT ANNOUNCE MENT AT [email or web address] CalcLDL-C RISK RATIO LDL/HDL 7.20 RATIO <3.22 H UNABLE T O CALCULATE (test code = 223) UNLESS OT HERWISE INDICATED, ALL TESTING PERFORMED [facility] [employer], [employer]. [address] [facility], [place] [address] LABORATORY DIRE CTOR: MARLENE STEVENS M.D. CLIA NUMBER [id number] [place] [id number] COMPREHENSIVE METABOLIC [id number] 04:59:22 Test Item Value Reference Range Interpretation Comments GLUCOSE (test code = 216 MG/DL 70-99 H 2216) BUN (test code = 7 MG/DL 6-2207) CREATININE (test 0.35 MG/DL 0.60-1.30 L code = 2214) eGFR (2020 CKD-EPI) 127 >60 (test code = 68631) ML/MIN/1.73 CALC BUN/CREAT (test 20 RATIO 6-28 code = 2235) SODIUM (test code = 134 MEQ/L 844-827 1118) POTASSIUM (test code 4.0 MEQ/L 3.5-5.4 = 2227) CHLORIDE (test code 100 MEQ/L 95-107 = 2215) CARBON DIOXIDE (test 21 MEQ/L 19-31 code [...] AST (test code = 23 U/L 9-40 2218) ALT (test code = <5 U/L 5-40 L 2219) CBC W/AUTO DIFF WITH [id number] 04:14:18 Test Item Value Reference Range Interpretation [...] RBCS 0.00 K/UL 0.00-0.11 (test code = 01464) COMPREHENSIVE METABOLIC [id number] 00:00:00 Test Item Value Reference Range Interpretation Comments GLUCOSE (test code = 2217) 216 MG/DL BUN (test code = 2208) 7 MG/DL CREATININE (test code = 2214) 0.35 MG/DL eGFR (2020 CKD-EPI) (test 127 ML/MIN/1.73 code = 36074) CALC BUN/CREAT (test code = 20 RATIO [...] (test code = 2219) <5 U/L HEMOGLOBIN [id number] 00:00:00 Test Item Value Reference Range Interpretation Comments HEMOGLOBIN A1c (test code = 42459) 8.2 % HEMOGLOBIN [id number] 00:00:00 Test Item Value Reference Range Interpretation Comments HEMOGLOBIN A1c (test code = 18308) 8.2 % LIPID [id number] 00:00:00 Test Item Value Reference Range Interpretation Comments CHOLESTEROL (test code = 2210) 539 MG/DL TRIGLYCERIDES (test code = 2232) 2237 MG/DL HDL CHOLESTEROL (test code = 25 MG/DL 2219) CALC LDL CHOL (test code = 2237) (NOTE) MG/DL RISK RATIO LDL/HDL (test code = 7.20 RATIO 2238) CBC W/AUTO [id number] 00:00:00 Test Item Value Reference Range Interpretation [...] NUCLEATED RBCS (test code = 0.00 K/UL 38260) CBC W/AUTO [id number] 00:00:00 Test Item Value Reference Range Interpretation [...] NUCLEATED RBCS (test code = 0.00 K/UL 92168) CBC W/AUTO [id number] 00:00:00 Test Item Value Reference Range Interpretation [...] NUCLEATED RBCS (test code = 0.00 K/UL 11739) COMPREHENSIVE METABOLIC [id number] 00:00:00 Test Item Value Reference Range Interpretation Comments GLUCOSE (test code = 2217) 216 MG/DL BUN (test code = 2208) 7 MG/DL CREATININE (test code = 2214) 0.35 MG/DL eGFR (2020 CKD-EPI) (test 127 ML/MIN/1.73 code = 75148) CALC BUN/CREAT (test code = 20 RATIO [...] CALC GLOBULIN (test code = 2.8 G/DL 224) CALC A/G RATIO (test code = 1.3 RATIO 2234) BILIRUBIN, TOTAL (test code = <0.2 MG/DL 2206) ALKALINE PHOSPHATASE (test 111 U/L code = 2204) AST (test code = 2218) 23 U/L ALT (test code = 2219) <5 U/L COMPREHENSIVE METABOLIC [id number] 00:00:00 Test Item Value Reference Range Interpretation Comments GLUCOSE (test code = 2217) 216 MG/DL BUN (test code = 2208) 7 MG/DL CREATININE (test code = 2214) 0.35 MG/DL eGFR (2020 CKD-EPI) (test 127 ML/MIN/1.73 code = 66560) CALC BUN/CREAT (test code = 20 RATIO [...] (test code = 2219) <5 U/L HEMOGLOBIN [id number] 00:00:00 Test Item Value Reference Range Interpretation Comments HEMOGLOBIN A1c (test code = 05132) 8.2 % HEMOGLOBIN [id number] 00:00:00 Test Item Value Reference Range Interpretation Comments HEMOGLOBIN A1c (test code = 02394) 8.2 % HEMOGLOBIN [id number] 00:00:00 Test Item Value Reference Range Interpretation Comments HEMOGLOBIN A1c (test code = 54616) 8.2 % LIPID [id number] 00:00:00 Test Item Value Reference Range Interpretation Comments CHOLESTEROL (test code = 2210) 539 MG/DL TRIGLYCERIDES (test code = 2232) 2237 MG/DL HDL CHOLESTEROL (test code = 25 MG/DL 2220) CALC LDL CHOL (test code = 2237) (NOTE) MG/DL RISK RATIO LDL/HDL (test code = 7.20 RATIO 2238) LIPID [id number] 00:00:00 Test Item Value Reference Range Interpretation Comments CHOLESTEROL (test code = 2210) 539 MG/DL TRIGLYCERIDES (test code = 2232) 2237 MG/DL HDL CHOLESTEROL (test code = 25 MG/DL 2220) CALC LDL CHOL (test code = 2237) (NOTE) MG/DL RISK RATIO LDL/HDL (test code = 7.20 RATIO 2238) CBC W/AUTO [id number] 00:00:00 Test Item Value Reference Range Interpretation [...] NUCLEATED RBCS (test code = 0.00 K/UL 75320) CBC W/AUTO [id number] 00:00:00 Test Item Value Reference Range Interpretation [...] NUCLEATED RBCS (test code = 0.00 K/UL 07795) CBC W/AUTO [id number] 00:00:00 Test Item Value Reference Range Interpretation [...] NUCLEATED RBCS (test code = 0.00 K/UL 93930) COMPREHENSIVE METABOLIC [id number] 00:00:00 Test Item Value Reference Range Interpretation Comments GLUCOSE (test code = 2217) 216 MG/DL BUN (test code = 2208) 7 MG/DL CREATININE (test code = 2214) 0.35 MG/DL eGFR (2020 CKD-EPI) (test 127 ML/MIN/1.73 code = 85513) CALC BUN/CREAT (test code = 20 RATIO 2235) SODIUM (test code = 2231) 134 MEQ/L POTASSIUM (test code = 2228) 4.0 MEQ/L CHLORIDE (test code = 2215) 100 MEQ/L CARBON DIOXIDE (test code = 21 MEQ/L 2206) CALCIUM (test code = 2209) 8.8 MG/DL [...] code = 2219) <5 U/L COMPREHENSIVE METABOLIC [id number] 00:00:00 Test Item Value Reference Range Interpretation Comments GLUCOSE (test code = 2217) 216 MG/DL BUN (test code = 2208) 7 MG/DL CREATININE (test code = 2214) 0.35 MG/DL eGFR (2020 CKD-EPI) (test 127 ML/MIN/1.73 code = 87088) CALC BUN/CREAT (test code = 20 RATIO [...] (test code = 2219) <5 U/L HEMOGLOBIN [id number] 00:00:00 Test Item Value Reference Range Interpretation Comments HEMOGLOBIN A1c (test code = 78178) 8.2 % HEMOGLOBIN [id number] 00:00:00 Test Item Value Reference Range Interpretation Comments HEMOGLOBIN A1c (test code = 59490) 8.2 % HEMOGLOBIN [id number] 00:00:00 Test Item Value Reference Range Interpretation Comments HEMOGLOBIN A1c (test code = 44261) 8.2 % LIPID [id number] 00:00:00 Test Item Value Reference Range Interpretation Comments CHOLESTEROL (test code = 2210) 539 MG/DL TRIGLYCERIDES (test code = 2232) 2237 MG/DL HDL CHOLESTEROL (test code = 25 MG/DL 2220) CALC LDL CHOL (test code = 2237) (NOTE) MG/DL RISK RATIO LDL/HDL (test code = 7.20 RATIO 2238) LIPID [id number] 00:00:00 Test Item Value Reference Range Interpretation Comments CHOLESTEROL (test code = 2210) 539 MG/DL TRIGLYCERIDES (test code = 2232) 2237 MG/DL HDL CHOLESTEROL (test code = 25 MG/DL 2220) CALC LDL CHOL (test code = 2237) (NOTE) MG/DL RISK RATIO LDL/HDL (test code = 7.20 RATIO 2238) CBC W/AUTO [id number] 00:00:00 Test Item Value Reference Range Interpretation [...] NUCLEATED RBCS (test code = 0.00 K/UL 04635) CBC W/AUTO [id number] 00:00:00 Test Item Value Reference Range Interpretation [...] NUCLEATED RBCS (test code = 0.00 K/UL 82362) [id number] 00:00:00 Test Item Value Reference Range Interpretation Comments LIPASE (test code = 2057) 14 U/L [id number] 00:00:00 Test Item Value Reference Range Interpretation Comments LIPASE (test code = 2057) 14 U/L [id number] 00:00:00 Test Item Value Reference Range Interpretation Comments AMYLASE (test code = 2205) 44 U/L [id number] 00:00:00 Test Item Value Reference Range Interpretation Comments AMYLASE (test code = 2205) 44 U/L [id number] 00:00:00 Test Item Value Reference Range Interpretation Comments LIPASE (test code = 2057) 14 U/L [id number] 00:00:00 Test Item Value Reference Range Interpretation Comments LIPASE (test code = 2057) 14 U/L [id number] 00:00:00 Test Item Value Reference Range Interpretation Comments LIPASE (test code = 2057) 14 U/L [id number] 00:00:00 Test Item Value Reference Range Interpretation Comments AMYLASE (test code = 5) 44 U/L [id number] 00:00:00 Test Item Value Reference Range Interpretation Comments AMYLASE (test code = 5) 44 U/L [id number] 00:00:00 Test Item Value Reference Range Interpretation Comments LIPASE (test code = 2057) 14 U/L [id number] 00:00:00 Test Item Value Reference Range Interpretation Comments LIPASE (test code = 2057) 14 U/L [id number] 00:00:00 Test Item Value Reference Range Interpretation Comments LIPASE (test code = 2057) 14 U/L [id number] 00:00:00 Test Item Value Reference Range Interpretation Comments AMYLASE (test code = 5) 44 U/L LIPID [id number] 00:00:00 Test Item Value Reference Range Interpretation Comments CHOLESTEROL (test code = 2210) 346 MG/DL TRIGLYCERIDES (test code = 2232) 1167 MG/DL HDL CHOLESTEROL (test code = 37 MG/DL 2220) CALC LDL CHOL (test code = 2237) (NOTE) MG/DL RISK RATIO LDL/HDL (test code = (NOTE) RATIO 2238) COMPREHENSIVE METABOLIC [id number] 00:00:00 Test Item Value Reference Range Interpretation Comments GLUCOSE (test code = 2217) 127 MG/DL BUN (test code = 2208) 7 MG/DL CREATININE (test code = 2214) 0.53 MG/DL eGFR AMER. (test code 132 ML/MIN/1.73 = 22210) eGFR NON- AMER. (test 114 ML/MIN/1.73 code = 19378) CALC BUN/CREAT (test code = 13 RATIO [...] (test code = 2219) 12 U/L LIPID [id number] 00:00:00 Test Item Value Reference Range Interpretation Comments CHOLESTEROL (test code = 2210) 346 MG/DL TRIGLYCERIDES (test code = 2232) 1167 MG/DL HDL CHOLESTEROL (test code = 37 MG/DL 2220) CALC LDL CHOL (test code = 2237) (NOTE) MG/DL RISK RATIO LDL/HDL (test code = (NOTE) RATIO 2238) LIPID [id number] 00:00:00 Test Item Value Reference Range Interpretation Comments CHOLESTEROL (test code = 2210) 346 MG/DL TRIGLYCERIDES (test code = 2232) 1167 MG/DL HDL CHOLESTEROL (test code = 37 MG/DL 2220) CALC LDL CHOL (test code = 2237) (NOTE) MG/DL RISK RATIO LDL/HDL (test code = (NOTE) RATIO 2238) COMPREHENSIVE METABOLIC [id number] 00:00:00 Test Item Value Reference Range Interpretation Comments GLUCOSE (test code = 2217) 127 MG/DL BUN (test code = 2208) 7 MG/DL CREATININE (test code = 2214) 0.53 MG/DL eGFR AMER. (test code 132 ML/MIN/1.73 = 91740) eGFR NON- AMER. (test 114 ML/MIN/1.73 code = 57474) CALC BUN/CREAT (test code = 13 RATIO 2235) SODIUM (test code = 2231) 143 MEQ/L POTASSIUM (test code = 2228) 4.8 MEQ/L CHLORIDE (test code = 2215) 103 MEQ/L CARBON DIOXIDE (test code = 24 MEQ/L 220) CALCIUM (test code = 2209) 9.6 MG/DL PROTEIN, TOTAL (test code = 7.3 G/DL 222) ALBUMIN (test code = 2201) 4.7 G/DL CALC GLOBULIN (test code = 2.6 G/DL 2240) CALC A/G RATIO (test code = 1.8 RATIO 2234) BILIRUBIN, TOTAL (test code = <0.2 MG/DL 2206) ALKALINE PHOSPHATASE (test 88 U/L code = 2204) AST (test code = 2218) 12 U/L ALT (test code = 2219) 12 U/L COMPREHENSIVE METABOLIC [id number] 00:00:00 Test Item Value Reference Range Interpretation Comments GLUCOSE (test code = 2217) 127 MG/DL BUN (test code = 2208) 7 MG/DL CREATININE (test code = 2214) 0.53 MG/DL eGFR AMER. (test code 132 ML/MIN/1.73 = 10468) eGFR NON- AMER. (test 114 ML/MIN/1.73 code = 63940) CALC BUN/CREAT (test code = 13 RATIO [...] (test code = 2219) 12 U/L LIPID [id number] 00:00:00 Test Item Value Reference Range Interpretation Comments CHOLESTEROL (test code = 2210) 346 MG/DL TRIGLYCERIDES (test code = 2232) 1167 MG/DL HDL CHOLESTEROL (test code = 37 MG/DL 2220) CALC LDL CHOL (test code = 2237) (NOTE) MG/DL RISK RATIO LDL/HDL (test code = (NOTE) RATIO 2238) LIPID [id number] 00:00:00 Test Item Value Reference Range Interpretation Comments CHOLESTEROL (test code = 2210) 346 MG/DL TRIGLYCERIDES (test code = 2232) 1167 MG/DL HDL CHOLESTEROL (test code = 37 MG/DL 2220) CALC LDL CHOL (test code = 2237) (NOTE) MG/DL RISK RATIO LDL/HDL (test code = (NOTE) RATIO 2238) COMPREHENSIVE METABOLIC [id number] 00:00:00 Test Item Value Reference Range Interpretation Comments GLUCOSE (test code = 2217) 127 MG/DL BUN (test code = 2208) 7 MG/DL CREATININE (test code = 2214) 0.53 MG/DL eGFR AMER. (test code 132 ML/MIN/1.73 = 18851) eGFR NON- AMER. (test 114 ML/MIN/1.73 code = 16194) CALC BUN/CREAT (test code = 13 RATIO 2235) SODIUM (test code = 2231) 143 MEQ/L POTASSIUM (test code = 2228) 4.8 MEQ/L CHLORIDE (test code = 2215) 103 MEQ/L CARBON DIOXIDE (test code = 24 MEQ/L 2205) CALCIUM (test code = 2209) 9.6 MG/DL PROTEIN, TOTAL (test code = 7.3 G/DL 222) ALBUMIN (test code = 2201) 4.7 G/DL CALC GLOBULIN (test code = 2.6 G/DL 2240) CALC A/G RATIO (test code = 1.8 RATIO 2234) BILIRUBIN, TOTAL (test code = <0.2 MG/DL 220) ALKALINE PHOSPHATASE (test 88 U/L code = 2204) AST (test code = 2218) 12 U/L ALT (test code = 2219) 12 U/L COMPREHENSIVE METABOLIC [id number] 00:00:00 Test Item Value Reference Range Interpretation Comments GLUCOSE (test code = 2217) 127 MG/DL BUN (test code = 2208) 7 MG/DL CREATININE (test code = 2214) 0.53 MG/DL eGFR AMER. (test code 132 ML/MIN/1.73 = 77514) eGFR NON- AMER. (test 114 ML/MIN/1.73 code = 87179) CALC BUN/CREAT (test code = 13 RATIO [...] (test code = 2219) 12 U/L HEMOGLOBIN [id number] 00:00:00 Test Item Value Reference Range Interpretation Comments HEMOGLOBIN A1c (test code = 86602) 7.8 % HEMOGLOBIN [id number] 00:00:00 Test Item Value Reference Range Interpretation Comments HEMOGLOBIN A1c (test code = 91260) 7.8 % HEMOGLOBIN [id number] 00:00:00 Test Item Value Reference Range Interpretation Comments HEMOGLOBIN A1c (test code = 71937) 7.8 % HEMOGLOBIN [id number] 00:00:00 Test Item Value Reference Range Interpretation Comments HEMOGLOBIN A1c (test code = 93002) 7.8 % HEMOGLOBIN [id number] 00:00:00 Test Item Value Reference Range Interpretation Comments HEMOGLOBIN A1c (test code = 26889) 7.8 % HEMOGLOBIN [id number] 00:00:00 Test Item Value Reference Range Interpretation Comments HEMOGLOBIN A1c (test code = 36713) 7.8 % HEMOGLOBIN [id number] 00:00:00 Test Item Value Reference Range Interpretation Comments HEMOGLOBIN A1c (test code = 61650) 7.8 % HEMOGLOBIN [id number] 00:00:00 Test Item Value Reference Range Interpretation Comments HEMOGLOBIN A1c (test code = 48502) 7.8 % CBC W/AUTO [id number] 00:00:00 Test Item Value Reference Range Interpretation [...] code = 1015) 270 K/UL CBC W/AUTO [id number] 00:00:00 Test Item Value Reference Range Interpretation [...] (test code = 1015) 270 K/UL HEMOGLOBIN [id number] 00:00:00 Test Item Value Reference Range Interpretation Comments HEMOGLOBIN A1c (test code = 66133) 8.8 % HEMOGLOBIN [id number] 00:00:00 Test Item Value Reference Range Interpretation Comments HEMOGLOBIN A1c (test code = 93664) 8.8 % COMPREHENSIVE METABOLIC [id number] 00:00:00 Test Item Value Reference Range Interpretation Comments GLUCOSE (test code = 2217) 236 MG/DL BUN (test code = 2208) 9 MG/DL CREATININE (test code = 2214) 0.47 MG/DL eGFR AMER. (test code 137 ML/MIN/1.73 = 79338) eGFR NON- AMER. (test 118 ML/MIN/1.73 code = 16910) CALC BUN/CREAT (test code = 19 RATIO [...] ALT (test code = 2219) <5 U/L [id number] 00:00:00 Test Item Value Reference Range Interpretation Comments TSH, THIRD GENERATION (test code 1.060 UIU/ML = 2821) [id number] 00:00:00 Test Item Value Reference Range Interpretation Comments TSH, THIRD GENERATION (test code 1.060 UIU/ML = 2821) MICROALBUMIN/CREATININE, RANDOM AND [id number] 00:00:00 Test Item Value Reference Range Interpretation Comments CREATININE, URINE, CONC. (test 83.5 MG/DL code = 2072) ALBUMIN, URINE, RANDOM (test code 3.0 MG/DL = 10625) CALC ALBUMIN/CREAT, RND (test code 36 MG/G = 91280) VITAMIN D, 25 [id number] 00:00:00 Test Item Value Reference Range Interpretation Comments VITAMIN D, 25 OH (test code = 4958) 12 NG/ML CBC W/AUTO [id number] 00:00:00 Test Item Value Reference Range Interpretation [...] code = 1015) 270 K/UL CBC W/AUTO [id number] 00:00:00 Test Item Value Reference Range Interpretation [...] code = 1015) 270 K/UL CBC W/AUTO [id number] 00:00:00 Test Item Value Reference Range Interpretation [...] (test code = 1015) 270 K/UL HEMOGLOBIN [id number] 00:00:00 Test Item Value Reference Range Interpretation Comments HEMOGLOBIN A1c (test code = 80557) 8.8 % HEMOGLOBIN [id number] 00:00:00 Test Item Value Reference Range Interpretation Comments HEMOGLOBIN A1c (test code = 76962) 8.8 % HEMOGLOBIN [id number] 00:00:00 Test Item Value Reference Range Interpretation Comments HEMOGLOBIN A1c (test code = 15830) 8.8 % COMPREHENSIVE METABOLIC [id number] 00:00:00 Test Item Value Reference Range Interpretation Comments GLUCOSE (test code = 2217) 236 MG/DL BUN (test code = 2208) 9 MG/DL CREATININE (test code = 2214) 0.47 MG/DL eGFR AMER. (test code 137 ML/MIN/1.73 = 47575) eGFR NON- AMER. (test 118 ML/MIN/1.73 code = 73237) CALC BUN/CREAT (test code = 19 RATIO 2235) SODIUM (test code = 2231) 138 MEQ/L POTASSIUM (test code = 2228) 4.2 MEQ/L CHLORIDE (test code = 2215) 101 MEQ/L CARBON DIOXIDE (test code = 25 MEQ/L 6) CALCIUM (test code = 2209) 10.2 MG/DL [...] code = 2219) <5 U/L COMPREHENSIVE METABOLIC [id number] 00:00:00 Test Item Value Reference Range Interpretation Comments GLUCOSE (test code = 2217) 236 MG/DL BUN (test code = 2208) 9 MG/DL CREATININE (test code = 2214) 0.47 MG/DL eGFR AMER. (test code 137 ML/MIN/1.73 = 54047) eGFR NON- AMER. (test 118 ML/MIN/1.73 code = 10982) CALC BUN/CREAT (test code = 19 RATIO [...] ALT (test code = 2219) <5 U/L [id number] 00:00:00 Test Item Value Reference Range Interpretation Comments TSH, THIRD GENERATION (test code 1.060 UIU/ML = 2821) [id number] 00:00:00 Test Item Value Reference Range Interpretation Comments TSH, THIRD GENERATION (test code 1.060 UIU/ML = 2821) [id number] 00:00:00 Test Item Value Reference Range Interpretation Comments TSH, THIRD GENERATION (test code 1.060 UIU/ML = 2821) MICROALBUMIN/CREATININE, RANDOM AND [id number] 00:00:00 Test Item Value Reference Range Interpretation Comments CREATININE, URINE, CONC. (test 83.5 MG/DL code = 2072) ALBUMIN, URINE, RANDOM (test code 3.0 MG/DL = 06980) CALC ALBUMIN/CREAT, RND (test code 36 MG/G = 51299) MICROALBUMIN/CREATININE, RANDOM AND [id number] 00:00:00 Test Item Value Reference Range Interpretation Comments CREATININE, URINE, CONC. (test 83.5 MG/DL code = 2072) ALBUMIN, URINE, RANDOM (test code 3.0 MG/DL = 77063) CALC ALBUMIN/CREAT, RND (test code 36 MG/G = 89866) VITAMIN D, 25 [id number] 00:00:00 Test Item Value Reference Range Interpretation Comments VITAMIN D, 25 OH (test code = 4958) 12 NG/ML VITAMIN D, 25 [id number] 00:00:00 Test Item Value Reference Range Interpretation Comments VITAMIN D, 25 OH (test code = 4958) 12 NG/ML CBC W/AUTO [id number] 00:00:00 Test Item Value Reference Range Interpretation [...] code = 1015) 270 K/UL CBC W/AUTO [id number] 00:00:00 Test Item Value Reference Range Interpretation [...] code = 1015) 270 K/UL CBC W/AUTO [id number] 00:00:00 Test Item Value Reference Range Interpretation [...] (test code = 1015) 270 K/UL HEMOGLOBIN [id number] 00:00:00 Test Item Value Reference Range Interpretation Comments HEMOGLOBIN A1c (test code = 59310) 8.8 % HEMOGLOBIN [id number] 00:00:00 Test Item Value Reference Range Interpretation Comments HEMOGLOBIN A1c (test code = 58509) 8.8 % HEMOGLOBIN [id number] 00:00:00 Test Item Value Reference Range Interpretation Comments HEMOGLOBIN A1c (test code = 22447) 8.8 % COMPREHENSIVE METABOLIC [id number] 00:00:00 Test Item Value Reference Range Interpretation Comments GLUCOSE (test code = 2217) 236 MG/DL BUN (test code = 2208) 9 MG/DL CREATININE (test code = 2214) 0.47 MG/DL eGFR AMER. (test code 137 ML/MIN/1.73 = 95623) eGFR NON- AMER. (test 118 ML/MIN/1.73 code = 54585) CALC BUN/CREAT (test code = 19 RATIO 2235) SODIUM (test code = 2231) 138 MEQ/L POTASSIUM (test code = 2228) 4.2 MEQ/L CHLORIDE (test code = 2215) 101 MEQ/L CARBON DIOXIDE (test code = 25 MEQ/L 2206) CALCIUM (test code = 2209) 10.2 MG/DL [...] code = 2219) <5 U/L COMPREHENSIVE METABOLIC [id number] 00:00:00 Test Item Value Reference Range Interpretation Comments GLUCOSE (test code = 2217) 236 MG/DL BUN (test code = 2208) 9 MG/DL CREATININE (test code = 2214) 0.47 MG/DL eGFR AMER. (test code 137 ML/MIN/1.73 = 20537) eGFR NON- AMER. (test 118 ML/MIN/1.73 code = 18716) CALC BUN/CREAT (test code = 19 RATIO 2235) SODIUM (test code = 2231) 138 MEQ/L POTASSIUM (test code = 2228) 4.2 MEQ/L CHLORIDE (test code = 2215) 101 MEQ/L CARBON DIOXIDE (test code = 25 MEQ/L 6) CALCIUM (test code = 2209) 10.2 MG/DL [...] ALT (test code = 2219) <5 U/L [id number] 00:00:00 Test Item Value Reference Range Interpretation Comments TSH, THIRD GENERATION (test code 1.060 UIU/ML = 2821) [id number] 00:00:00 Test Item Value Reference Range Interpretation Comments TSH, THIRD GENERATION (test code 1.060 UIU/ML = 2821) [id number] 00:00:00 Test Item Value Reference Range Interpretation Comments TSH, THIRD GENERATION (test code 1.060 UIU/ML = 2821) MICROALBUMIN/CREATININE, RANDOM AND [id number] 00:00:00 Test Item Value Reference Range Interpretation Comments CREATININE, URINE, CONC. (test 83.5 MG/DL code = 2072) ALBUMIN, URINE, RANDOM (test code 3.0 MG/DL = 77259) CALC ALBUMIN/CREAT, RND (test code 36 MG/G = 51899) MICROALBUMIN/CREATININE, RANDOM AND [id number] 00:00:00 Test Item Value Reference Range Interpretation Comments CREATININE, URINE, CONC. (test 83.5 MG/DL code = 2072) ALBUMIN, URINE, RANDOM (test code 3.0 MG/DL = 73977) CALC ALBUMIN/CREAT, RND (test code 36 MG/G = 23840) VITAMIN D, 25 [id number] 00:00:00 Test Item Value Reference Range Interpretation Comments VITAMIN D, 25 OH (test code = 4958) 12 NG/ML VITAMIN D, 25 [id number] 00:00:00 Test Item Value Reference Range Interpretation Comments VITAMIN D, 25 OH (test code = 4958) 12 NG/ML SARS-CoV-2 (COVID-19) by RT-PCR (HIGH RISK)2020-03-24 00:00:00 Test Item Value Reference Range Interpretation Comments SARS-CoV-2 INTERPRETATION (test NEGATIVE code = 60512) SOURCE (test code = 32115) NOT SPECIFIED SARS-CoV-2 (COVID-19) by RT-PCR (HIGH RISK)2020-03-24 00:00:00 Test Item Value Reference Range Interpretation Comments SARS-CoV-2 INTERPRETATION (test NEGATIVE code = 65038) SOURCE (test code = 00189) NOT SPECIFIED SARS-CoV-2 (COVID-19) by RT-PCR (HIGH RISK)2020-03-24 00:00:00 Test Item Value Reference Range Interpretation Comments SARS-CoV-2 INTERPRETATION (test NEGATIVE code = 70555) SOURCE (test code = 97459) NOT SPECIFIED SARS-CoV-2 (COVID-19) by RT-PCR (HIGH RISK)2020-03-24 00:00:00 Test Item Value Reference Range Interpretation Comments SARS-CoV-2 INTERPRETATION (test NEGATIVE code = 09098) SOURCE (test code = 04892) NOT SPECIFIED SARS-CoV-2 (COVID-19) by RT-PCR (HIGH RISK)2020-03-24 00:00:00 Test Item Value Reference Range Interpretation Comments SARS-CoV-2 INTERPRETATION (test NEGATIVE code = 25969) SOURCE (test code = 45314) NOT SPECIFIED LIPID [id number] 00:00:00 Test Item Value Reference Range Interpretation Comments CHOLESTEROL (test code = 2210) 235 MG/DL TRIGLYCERIDES (test code = 2232) 420 MG/DL HDL CHOLESTEROL (test code = 42 MG/DL 2220) CALC LDL CHOL (test code = 2237) (NOTE) MG/DL RISK RATIO LDL/HDL (test code = (NOTE) RATIO 2238) LIPID [id number] 00:00:00 Test Item Value Reference Range Interpretation Comments CHOLESTEROL (test code = 2210) 235 MG/DL TRIGLYCERIDES (test code = 2232) 420 MG/DL HDL CHOLESTEROL (test code = 42 MG/DL 2220) CALC LDL CHOL (test code = 2237) (NOTE) MG/DL RISK RATIO LDL/HDL (test code = (NOTE) RATIO 2238) LIPID [id number] 00:00:00 Test Item Value Reference Range Interpretation Comments CHOLESTEROL (test code = 2210) 235 MG/DL TRIGLYCERIDES (test code = 2232) 420 MG/DL HDL CHOLESTEROL (test code = 42 MG/DL 2220) CALC LDL CHOL (test code = 2237) (NOTE) MG/DL RISK RATIO LDL/HDL (test code = (NOTE) RATIO 2238) LIPID [id number] 00:00:00 Test Item Value Reference Range Interpretation Comments CHOLESTEROL (test code = 2210) 235 MG/DL TRIGLYCERIDES (test code = 2232) 420 MG/DL HDL CHOLESTEROL (test code = 42 MG/DL 2220) CALC LDL CHOL (test code = 2237) (NOTE) MG/DL RISK RATIO LDL/HDL (test code = (NOTE) RATIO 2238) LIPID [id number] 00:00:00 Test Item Value Reference Range Interpretation Comments CHOLESTEROL (test code = 2210) 235 MG/DL TRIGLYCERIDES (test code = 2232) 420 MG/DL HDL CHOLESTEROL (test code = 42 MG/DL 2220) CALC LDL CHOL (test code = 2237) (NOTE) MG/DL RISK RATIO LDL/HDL (test code = (NOTE) RATIO 2238) LIPID [id number] 00:00:00 Test Item Value Reference Range Interpretation Comments CHOLESTEROL (test code = 2210) 500 MG/DL TRIGLYCERIDES (test code = 2232) 2793 MG/DL HDL CHOLESTEROL (test code = 25 MG/DL 2220) CALC LDL CHOL (test code = 2237) (NOTE) MG/DL RISK RATIO LDL/HDL (test code = (NOTE) RATIO 2238) COMPREHENSIVE METABOLIC [id number] 00:00:00 Test Item Value Reference Range Interpretation Comments GLUCOSE (test code = 2217) 287 MG/DL BUN (test code = 2208) 7 MG/DL CREATININE (test code = 2214) 0.57 MG/DL eGFR AMER. (test code 129 ML/MIN/1.73 = 96556) eGFR NON- AMER. (test 111 ML/MIN/1.73 code = 62369) CALC BUN/CREAT (test code = 12 RATIO [...] (test code = 2219) <5 U/L HEMOGLOBIN [id number] 00:00:00 Test Item Value Reference Range Interpretation Comments HEMOGLOBIN A1c (test code = 15000) 9.2 % HEMOGLOBIN [id number] 00:00:00 Test Item Value Reference Range Interpretation Comments HEMOGLOBIN A1c (test code = 25146) 9.2 % HEMOGLOBIN [id number] 00:00:00 Test Item Value Reference Range Interpretation Comments HEMOGLOBIN A1c (test code = 78986) 9.2 % LIPID [id number] 00:00:00 Test Item Value Reference Range Interpretation Comments CHOLESTEROL (test code = 2210) 500 MG/DL TRIGLYCERIDES (test code = 2232) 2793 MG/DL HDL CHOLESTEROL (test code = 25 MG/DL 2220) CALC LDL CHOL (test code = 2237) (NOTE) MG/DL RISK RATIO LDL/HDL (test code = (NOTE) RATIO 2238) LIPID [id number] 00:00:00 Test Item Value Reference Range Interpretation Comments CHOLESTEROL (test code = 2210) 500 MG/DL TRIGLYCERIDES (test code = 2232) 2793 MG/DL HDL CHOLESTEROL (test code = 25 MG/DL 2220) CALC LDL CHOL (test code = 2237) (NOTE) MG/DL RISK RATIO LDL/HDL (test code = (NOTE) RATIO 2238) COMPREHENSIVE METABOLIC [id number] 00:00:00 Test Item Value Reference Range Interpretation Comments GLUCOSE (test code = 2217) 287 MG/DL BUN (test code = 2208) 7 MG/DL CREATININE (test code = 2214) 0.57 MG/DL eGFR AMER. (test code 129 ML/MIN/1.73 = 88475) eGFR NON- AMER. (test 111 ML/MIN/1.73 code = 51072) CALC BUN/CREAT (test code = 12 RATIO [...] code = 2219) <5 U/L COMPREHENSIVE METABOLIC [id number] 00:00:00 Test Item Value Reference Range Interpretation Comments GLUCOSE (test code = 2217) 287 MG/DL BUN (test code = 2208) 7 MG/DL CREATININE (test code = 2214) 0.57 MG/DL eGFR AMER. (test code 129 ML/MIN/1.73 = 38709) eGFR NON- AMER. (test 111 ML/MIN/1.73 code = 65553) CALC BUN/CREAT (test code = 12 RATIO [...] RATIO 2233) BILIRUBIN, TOTAL (test code = 0.4 MG/DL 2206) ALKALINE PHOSPHATASE (test 103 U/L code = 2204) AST (test code = 2218) 30 U/L ALT (test code = 2219) <5 U/L HEMOGLOBIN [id number] 00:00:00 Test Item Value Reference Range Interpretation Comments HEMOGLOBIN A1c (test code = 90105) 9.2 % HEMOGLOBIN [id number] 00:00:00 Test Item Value Reference Range Interpretation Comments HEMOGLOBIN A1c (test code = 18792) 9.2 % HEMOGLOBIN [id number] 00:00:00 Test Item Value Reference Range Interpretation Comments HEMOGLOBIN A1c (test code = 38504) 9.2 % LIPID [id number] 00:00:00 Test Item Value Reference Range Interpretation Comments CHOLESTEROL (test code = 2210) 500 MG/DL TRIGLYCERIDES (test code = 2232) 2793 MG/DL HDL CHOLESTEROL (test code = 25 MG/DL 2220) CALC LDL CHOL (test code = 2237) (NOTE) MG/DL RISK RATIO LDL/HDL (test code = (NOTE) RATIO 2238) LIPID [id number] 00:00:00 Test Item Value Reference Range Interpretation Comments CHOLESTEROL (test code = 2210) 500 MG/DL TRIGLYCERIDES (test code = 2232) 2793 MG/DL HDL CHOLESTEROL (test code = 25 MG/DL 0) CALC LDL CHOL (test code = 2237) (NOTE) MG/DL RISK RATIO LDL/HDL (test code = (NOTE) RATIO 2238) COMPREHENSIVE METABOLIC [id number] 00:00:00 Test Item Value Reference Range Interpretation Comments GLUCOSE (test code = 2217) 287 MG/DL BUN (test code = 2208) 7 MG/DL CREATININE (test code = 2214) 0.57 MG/DL eGFR AMER. (test code 129 ML/MIN/1.73 = 68454) eGFR NON- AMER. (test 111 ML/MIN/1.73 code = 11092) CALC BUN/CREAT (test code = 12 RATIO 2235) SODIUM (test code = 2231) 133 MEQ/L POTASSIUM (test code = 2228) 4.5 MEQ/L CHLORIDE (test code = 2215) 96 MEQ/L CARBON DIOXIDE (test code = 24 MEQ/L 220) CALCIUM (test code = 2209) 10.0 MG/DL [...] code = 2219) <5 U/L COMPREHENSIVE METABOLIC [id number] 00:00:00 Test Item Value Reference Range Interpretation Comments GLUCOSE (test code = 2217) 287 MG/DL BUN (test code = 2208) 7 MG/DL CREATININE (test code = 2214) 0.57 MG/DL eGFR AMER. (test code 129 ML/MIN/1.73 = 89280) eGFR NON- AMER. (test 111 ML/MIN/1.73 code = 83562) CALC BUN/CREAT (test code = 12 RATIO [...] BILIRUBIN, TOTAL (test code = 0.4 MG/DL 220) ALKALINE PHOSPHATASE (test 103 U/L code = 2204) AST (test code = 2218) 30 U/L ALT (test code = 2219) <5 U/L HEMOGLOBIN [id number] 00:00:00 Test Item Value Reference Range Interpretation Comments HEMOGLOBIN A1c (test code = 00049) 9.2 % HEMOGLOBIN [id number] 00:00:00 Test Item Value Reference Range Interpretation Comments HEMOGLOBIN A1c (test code = 99165) 9.2 % SARS-CoV-2 (COVID-19) by RT-PCR (HIGH RISK)2019-12-14 00:00:00 Test Item Value Reference Range Interpretation Comments SARS-CoV-2 INTERPRETATION Positive (test code = 36751) SOURCE (test code = 53747) NASOPHARYNGEAL_SWAB _IN_VTM__UTM SARS-CoV-2 (COVID-19) by RT-PCR (HIGH RISK)2019-12-14 00:00:00 Test Item Value Reference Range Interpretation Comments SARS-CoV-2 INTERPRETATION Positive (test code = 25801) SOURCE (test code = 53200) NASOPHARYNGEAL_SWAB _IN_VTM__UTM SARS-CoV-2 (COVID-19) by RT-PCR (HIGH RISK)2019-12-14 00:00:00 Test Item Value Reference Range Interpretation Comments SARS-CoV-2 INTERPRETATION Positive (test code = 65438) SOURCE (test code = 24087) NASOPHARYNGEAL_SWAB _IN_VTM__UTM SARS-CoV-2 (COVID-19) by RT-PCR (HIGH RISK)2019-12-01 00:00:00 Test Item Value Reference Range Interpretation Comments SARS-CoV-2 INTERPRETATION Positive (test code = 00537) SOURCE (test code = 30272) Nasal_Swab_in_VTM__ UTM SARS-CoV-2 (COVID-19) by RT-PCR (HIGH RISK)2019-12-01 00:00:00 Test Item Value Reference Range Interpretation Comments SARS-CoV-2 INTERPRETATION Positive (test code = 50780) SOURCE (test code = 75042) Nasal_Swab_in_VTM__ UTM SARS-CoV-2 (COVID-19) by RT-PCR (HIGH RISK)2019-12-01 00:00:00 Test Item Value Reference Range Interpretation Comments SARS-CoV-2 INTERPRETATION Positive (test code = 73946) SOURCE (test code = 46648) Nasal_Swab_in_VTM__ UTM SARS-CoV-2 (COVID-19) by RT-PCR (HIGH RISK)2019-09-01 00:00:00 Test Item Value Reference Range Interpretation Comments SARS-CoV-2 INTERPRETATION (test NEGATIVE code = 45848) SOURCE (test code = 90703) NOT SPECIFIED SARS-CoV-2 (COVID-19) by RT-PCR (HIGH RISK)2019-09-01 00:00:00 Test Item Value Reference Range Interpretation Comments SARS-CoV-2 INTERPRETATION (test NEGATIVE code = 40331) SOURCE (test code = 15496) NOT SPECIFIED SARS-CoV-2 (COVID-19) by RT-PCR (HIGH RISK)2019-09-01 00:00:00 Test Item Value Reference Range Interpretation Comments SARS-CoV-2 INTERPRETATION (test NEGATIVE code = 29780) SOURCE (test code = 23565) NOT SPECIFIED SARS-CoV-2 (COVID-19) by RT-PCR (HIGH RISK)2019-09-01 00:00:00 Test Item Value Reference Range Interpretation Comments SARS-CoV-2 INTERPRETATION (test NEGATIVE code = 80220) SOURCE (test code = 96063) NOT SPECIFIED SARS-CoV-2 (COVID-19) by RT-PCR (HIGH RISK)2019-09-01 00:00:00 Test Item Value Reference Range Interpretation Comments SARS-CoV-2 INTERPRETATION (test NEGATIVE code = 95876) SOURCE (test code = 47102) NOT SPECIFIED HEMOGLOBIN [id number] 00:00:00 Test Item Value Reference Range Interpretation Comments HEMOGLOBIN A1c (test code = 21729) 8.1 % LIPID [id number] 00:00:00 Test Item Value Reference Range Interpretation Comments CHOLESTEROL (test code = 2210) 336 MG/DL TRIGLYCERIDES (test code = 2232) 1678 MG/DL HDL CHOLESTEROL (test code = 28 MG/DL 2220) CALC LDL CHOL (test code = 2237) (NOTE) MG/DL RISK RATIO LDL/HDL (test code = (NOTE) RATIO 2238) COMPREHENSIVE METABOLIC [id number] 00:00:00 Test Item Value Reference Range Interpretation Comments GLUCOSE (test code = 2217) 175 MG/DL BUN (test code = 2208) 8 MG/DL CREATININE (test code = 2214) 0.53 MG/DL eGFR AMER. (test code 133 ML/MIN/1.73 = 17019) eGFR NON- AMER. (test 115 ML/MIN/1.73 code = 75742) CALC BUN/CREAT (test code = 15 RATIO [...] = 0.3 MG/DL 220) ALKALINE PHOSPHATASE (test 87 U/L code = 2204) AST (test code = 2218) 21 U/L ALT (test code = 2219) 25 U/L HEMOGLOBIN [id number] 00:00:00 Test Item Value Reference Range Interpretation Comments HEMOGLOBIN A1c (test code = 32574) 8.1 % HEMOGLOBIN [id number] 00:00:00 Test Item Value Reference Range Interpretation Comments HEMOGLOBIN A1c (test code = 76103) 8.1 % HEMOGLOBIN [id number] 00:00:00 Test Item Value Reference Range Interpretation Comments HEMOGLOBIN A1c (test code = 93040) 8.1 % LIPID [id number] 00:00:00 Test Item Value Reference Range Interpretation Comments CHOLESTEROL (test code = 2210) 336 MG/DL TRIGLYCERIDES (test code = 2232) 1678 MG/DL HDL CHOLESTEROL (test code = 28 MG/DL 2220) CALC LDL CHOL (test code = 2237) (NOTE) MG/DL RISK RATIO LDL/HDL (test code = (NOTE) RATIO 2238) LIPID [id number] 00:00:00 Test Item Value Reference Range Interpretation Comments CHOLESTEROL (test code = 2210) 336 MG/DL TRIGLYCERIDES (test code = 2232) 1678 MG/DL HDL CHOLESTEROL (test code = 28 MG/DL 2220) CALC LDL CHOL (test code = 2237) (NOTE) MG/DL RISK RATIO LDL/HDL (test code = (NOTE) RATIO 2238) COMPREHENSIVE METABOLIC [id number] 00:00:00 Test Item Value Reference Range Interpretation Comments GLUCOSE (test code = 2217) 175 MG/DL BUN (test code = 2208) 8 MG/DL CREATININE (test code = 2214) 0.53 MG/DL eGFR AMER. (test code 133 ML/MIN/1.73 = 01340) eGFR NON- AMER. (test 115 ML/MIN/1.73 code = 08411) CALC BUN/CREAT (test code = 15 RATIO [...] code = 2219) 25 U/L COMPREHENSIVE METABOLIC [id number] 00:00:00 Test Item Value Reference Range Interpretation Comments GLUCOSE (test code = 2217) 175 MG/DL BUN (test code = 2208) 8 MG/DL CREATININE (test code = 2214) 0.53 MG/DL eGFR AMER. (test code 133 ML/MIN/1.73 = 82724) eGFR NON- AMER. (test 115 ML/MIN/1.73 code = 82599) CALC BUN/CREAT (test code = 15 RATIO [...] (test code = 2219) 25 U/L HEMOGLOBIN [id number] 00:00:00 Test Item Value Reference Range Interpretation Comments HEMOGLOBIN A1c (test code = 78037) 8.1 % HEMOGLOBIN [id number] 00:00:00 Test Item Value Reference Range Interpretation Comments HEMOGLOBIN A1c (test code = 07707) 8.1 % HEMOGLOBIN [id number] 00:00:00 Test Item Value Reference Range Interpretation Comments HEMOGLOBIN A1c (test code = 59962) 8.1 % LIPID [id number] 00:00:00 Test Item Value Reference Range Interpretation Comments CHOLESTEROL (test code = 2210) 336 MG/DL TRIGLYCERIDES (test code = 2232) 1678 MG/DL HDL CHOLESTEROL (test code = 28 MG/DL 2220) CALC LDL CHOL (test code = 2237) (NOTE) MG/DL RISK RATIO LDL/HDL (test code = (NOTE) RATIO 2238) LIPID [id number] 00:00:00 Test Item Value Reference Range Interpretation Comments CHOLESTEROL (test code = 2210) 336 MG/DL TRIGLYCERIDES (test code = 2232) 1678 MG/DL HDL CHOLESTEROL (test code = 28 MG/DL 2220) CALC LDL CHOL (test code = 2237) (NOTE) MG/DL RISK RATIO LDL/HDL (test code = (NOTE) RATIO 2238) COMPREHENSIVE METABOLIC [id number] 00:00:00 Test Item Value Reference Range Interpretation Comments GLUCOSE (test code = 2217) 175 MG/DL BUN (test code = 2208) 8 MG/DL CREATININE (test code = 2214) 0.53 MG/DL eGFR AMER. (test code 133 ML/MIN/1.73 = 94026) eGFR NON- AMER. (test 115 ML/MIN/1.73 code = 83640) CALC BUN/CREAT (test code = 15 RATIO [...] code = 2219) 25 U/L COMPREHENSIVE METABOLIC [id number] 00:00:00 Test Item Value Reference Range Interpretation Comments GLUCOSE (test code = 2217) 175 MG/DL BUN (test code = 2208) 8 MG/DL CREATININE (test code = 2214) 0.53 MG/DL eGFR AMER. (test code 133 ML/MIN/1.73 = 87067) eGFR NON- AMER. (test 115 ML/MIN/1.73 code = 89898) CALC BUN/CREAT (test code = 15 RATIO [...] (test code = 2219) 25 U/L HEMOGLOBIN [id number] 00:00:00 Test Item Value Reference Range Interpretation Comments HEMOGLOBIN A1c (test code = 45634) 8.1 % COMPREHENSIVE METABOLIC [id number] 00:00:00 Test Item Value Reference Range Interpretation Comments GLUCOSE (test code = 2217) 286 MG/DL BUN (test code = 2208) 9 MG/DL CREATININE (test code = 2214) 0.56 MG/DL eGFR AMER. (test code 131 ML/MIN/1.73 = 43696) eGFR NON- AMER. (test 113 ML/MIN/1.73 code = 15006) CALC BUN/CREAT (test code = 16 RATIO 2235) SODIUM (test code = 2231) 137 MEQ/L POTASSIUM (test code = 2228) 4.3 MEQ/L CHLORIDE (test code = 2215) 96 MEQ/L CARBON DIOXIDE (test code = 27 MEQ/L 6) CALCIUM (test code = 2209) 9.1 MG/DL [...] code = 2219) <5 U/L COMPREHENSIVE METABOLIC [id number] 00:00:00 Test Item Value Reference Range Interpretation Comments GLUCOSE (test code = 2217) 286 MG/DL BUN (test code = 2208) 9 MG/DL CREATININE (test code = 2214) 0.56 MG/DL eGFR AMER. (test code 131 ML/MIN/1.73 = 90720) eGFR NON- AMER. (test 113 ML/MIN/1.73 code = 59444) CALC BUN/CREAT (test code = 16 RATIO [...] code = 2219) <5 U/L COMPREHENSIVE METABOLIC [id number] 00:00:00 Test Item Value Reference Range Interpretation Comments GLUCOSE (test code = 2217) 286 MG/DL BUN (test code = 2208) 9 MG/DL CREATININE (test code = 2214) 0.56 MG/DL eGFR AMER. (test code 131 ML/MIN/1.73 = 71047) eGFR NON- AMER. (test 113 ML/MIN/1.73 code = 08194) CALC BUN/CREAT (test code = 16 RATIO [...] code = 2219) <5 U/L COMPREHENSIVE METABOLIC [id number] 00:00:00 Test Item Value Reference Range Interpretation Comments GLUCOSE (test code = 2217) 286 MG/DL BUN (test code = 2208) 9 MG/DL CREATININE (test code = 2214) 0.56 MG/DL eGFR AMER. (test code 131 ML/MIN/1.73 = 38543) eGFR NON- AMER. (test 113 ML/MIN/1.73 code = 00623) CALC BUN/CREAT (test code = 16 RATIO [...] code = 2219) <5 U/L COMPREHENSIVE METABOLIC [id number] 00:00:00 Test Item Value Reference Range Interpretation Comments GLUCOSE (test code = 2217) 286 MG/DL BUN (test code = 2208) 9 MG/DL CREATININE (test code = 2214) 0.56 MG/DL eGFR AMER. (test code 131 ML/MIN/1.73 = 45489) eGFR NON- AMER. (test 113 ML/MIN/1.73 code = 44398) CALC BUN/CREAT (test code = 16 RATIO [...] = 2219) <5 U/L MICROALBUMIN/CREATININE, RANDOM AND [id number] 00:00:00 Test Item Value Reference Range Interpretation Comments CREATININE, URINE, CONC. (test 112.4 MG/DL code = 2072) ALBUMIN, URINE, RANDOM (test code 9.2 MG/DL = 08732) CALC ALBUMIN/CREAT, RND (test 82 MG/G code = 56872) HEMOGLOBIN [id number] 00:00:00 Test Item Value Reference Range Interpretation Comments HEMOGLOBIN A1c (test code = 78276) 7.5 % HEMOGLOBIN [id number] 00:00:00 Test Item Value Reference Range Interpretation Comments HEMOGLOBIN A1c (test code = 76741) 7.5 % HEMOGLOBIN [id number] 00:00:00 Test Item Value Reference Range Interpretation Comments HEMOGLOBIN A1c (test code = 72764) 7.5 % MICROALBUMIN/CREATININE, RANDOM AND [id number] 00:00:00 Test Item Value Reference Range Interpretation Comments CREATININE, URINE, CONC. (test 112.4 MG/DL code = 2072) ALBUMIN, URINE, RANDOM (test code 9.2 MG/DL = 80639) CALC ALBUMIN/CREAT, RND (test 82 MG/G code = 56159) MICROALBUMIN/CREATININE, RANDOM AND [id number] 00:00:00 Test Item Value Reference Range Interpretation Comments CREATININE, URINE, CONC. (test 112.4 MG/DL code = 2072) ALBUMIN, URINE, RANDOM (test code 9.2 MG/DL = 93031) CALC ALBUMIN/CREAT, RND (test 82 MG/G code = 07606) HEMOGLOBIN [id number] 00:00:00 Test Item Value Reference Range Interpretation Comments HEMOGLOBIN A1c (test code = 45302) 7.5 % HEMOGLOBIN [id number] 00:00:00 Test Item Value Reference Range Interpretation Comments HEMOGLOBIN A1c (test code = 22288) 7.5 % HEMOGLOBIN [id number] 00:00:00 Test Item Value Reference Range Interpretation Comments HEMOGLOBIN A1c (test code = 22985) 7.5 % MICROALBUMIN/CREATININE, RANDOM AND [id number] 00:00:00 Test Item Value Reference Range Interpretation Comments CREATININE, URINE, CONC. (test 112.4 MG/DL code = 2072) ALBUMIN, URINE, RANDOM (test code 9.2 MG/DL = 85327) CALC ALBUMIN/CREAT, RND (test 82 MG/G code = 28387) MICROALBUMIN/CREATININE, RANDOM AND [id number] 00:00:00 Test Item Value Reference Range Interpretation Comments CREATININE, URINE, CONC. (test 112.4 MG/DL code = 2072) ALBUMIN, URINE, RANDOM (test code 9.2 MG/DL = 66559) CALC ALBUMIN/CREAT, RND (test 82 MG/G code = 77266) HEMOGLOBIN [id number] 00:00:00 Test Item Value Reference Range Interpretation Comments HEMOGLOBIN A1c (test code = 94615) 7.5 % HEMOGLOBIN [id number] 00:00:00 Test Item Value Reference Range Interpretation Comments HEMOGLOBIN A1c (test code = 64868) 7.5 % HEMOGLOBIN [id number] 00:00:00 Test Item Value Reference Range Interpretation Comments HEMOGLOBIN A1c (test code = 15941) 8.2 % HEMOGLOBIN [id number] 00:00:00 Test Item Value Reference Range Interpretation Comments HEMOGLOBIN A1c (test code = 63401) 8.2 % MICROALBUMIN/CREATININE, RANDOM AND [id number] 00:00:00 Test Item Value Reference Range Interpretation Comments CREATININE, URINE, CONC. (test 95.3 MG/DL code = 2072) ALBUMIN, URINE, RANDOM (test code 15.6 MG/DL = 47921) CALC ALBUMIN/CREAT, RND (test code 164 MG/G = 46957) HEMOGLOBIN [id number] 00:00:00 Test Item Value Reference Range Interpretation Comments HEMOGLOBIN A1c (test code = 11871) 8.2 % HEMOGLOBIN [id number] 00:00:00 Test Item Value Reference Range Interpretation Comments HEMOGLOBIN A1c (test code = 03127) 8.2 % HEMOGLOBIN [id number] 00:00:00 Test Item Value Reference Range Interpretation Comments HEMOGLOBIN A1c (test code = 77196) 8.2 % MICROALBUMIN/CREATININE, RANDOM AND [id number] 00:00:00 Test Item Value Reference Range Interpretation Comments CREATININE, URINE, CONC. (test 95.3 MG/DL code = 2072) ALBUMIN, URINE, RANDOM (test code 15.6 MG/DL = 06157) CALC ALBUMIN/CREAT, RND (test code 164 MG/G = 86368) MICROALBUMIN/CREATININE, RANDOM AND [id number] 00:00:00 Test Item Value Reference Range Interpretation Comments CREATININE, URINE, CONC. (test 95.3 MG/DL code = 2072) ALBUMIN, URINE, RANDOM (test code 15.6 MG/DL = 28049) CALC ALBUMIN/CREAT, RND (test code 164 MG/G = 81916) HEMOGLOBIN [id number] 00:00:00 Test Item Value Reference Range Interpretation Comments HEMOGLOBIN A1c (test code = 02122) 8.2 % HEMOGLOBIN [id number] 00:00:00 Test Item Value Reference Range Interpretation Comments HEMOGLOBIN A1c (test code = 02106) 8.2 % HEMOGLOBIN [id number] 00:00:00 Test Item Value Reference Range Interpretation Comments HEMOGLOBIN A1c (test code = 13206) 8.2 % MICROALBUMIN/CREATININE, RANDOM AND [id number] 00:00:00 Test Item Value Reference Range Interpretation Comments CREATININE, URINE, CONC. (test 95.3 MG/DL code = 2072) ALBUMIN, URINE, RANDOM (test code 15.6 MG/DL = 74117) CALC ALBUMIN/CREAT, RND (test code 164 MG/G = 92149) MICROALBUMIN/CREATININE, RANDOM AND [id number] 00:00:00 Test Item Value Reference Range Interpretation Comments CREATININE, URINE, CONC. (test 95.3 MG/DL code = 2072) ALBUMIN, URINE, RANDOM (test code 15.6 MG/DL = 14589) CALC ALBUMIN/CREAT, RND (test code 164 MG/G = 04688) LIPID [id number] 00:00:00 Test Item Value Reference Range Interpretation Comments CHOLESTEROL (test code = 2210) 242 MG/DL TRIGLYCERIDES (test code = 2232) 721 MG/DL HDL CHOLESTEROL (test code = 41 MG/DL 2220) CALC LDL CHOL (test code = 2237) NOTE MG/DL RISK RATIO LDL/HDL (test code = (NOTE) RATIO 2238) HEMOGLOBIN [id number] 00:00:00 Test Item Value Reference Range Interpretation Comments HEMOGLOBIN A1c (test code = 05623) 7.0 % HEMOGLOBIN [id number] 00:00:00 Test Item Value Reference Range Interpretation Comments HEMOGLOBIN A1c (test code = 75250) 7.0 % COMPREHENSIVE METABOLIC [id number] 00:00:00 Test Item Value Reference Range Interpretation Comments GLUCOSE (test code = 2217) 188 MG/DL BUN (test code = 2208) 8 MG/DL CREATININE (test code = 2214) 0.47 MG/DL eGFR AMER. (test code 139 ML/MIN/1.73 = 56439) eGFR NON- AMER. (test 120 ML/MIN/1.73 code = 31213) CALC BUN/CREAT (test code = 17 RATIO 2235) SODIUM (test code = 2231) 137 MEQ/L POTASSIUM (test code = 2228) 4.6 MEQ/L CHLORIDE (test code = 2215) 101 MEQ/L CARBON DIOXIDE (test code = 24 MEQ/L 6) CALCIUM (test code = 2209) 9.4 MG/DL [...] code = 2219) 11 U/L COMPREHENSIVE METABOLIC [id number] 00:00:00 Test Item Value Reference Range Interpretation Comments GLUCOSE (test code = 2217) 188 MG/DL BUN (test code = 2208) 8 MG/DL CREATININE (test code = 2214) 0.47 MG/DL eGFR AMER. (test code 139 ML/MIN/1.73 = 77203) eGFR NON- AMER. (test 120 ML/MIN/1.73 code = 61543) CALC BUN/CREAT (test code = 17 RATIO [...] (test code = 2219) 11 U/L LIPID [id number] 00:00:00 Test Item Value Reference Range Interpretation Comments CHOLESTEROL (test code = 2210) 242 MG/DL TRIGLYCERIDES (test code = 2232) 721 MG/DL HDL CHOLESTEROL (test code = 41 MG/DL 0) CALC LDL CHOL (test code = 2237) NOTE MG/DL RISK RATIO LDL/HDL (test code = (NOTE) RATIO 2238) LIPID [id number] 00:00:00 Test Item Value Reference Range Interpretation Comments CHOLESTEROL (test code = 2210) 242 MG/DL TRIGLYCERIDES (test code = 2232) 721 MG/DL HDL CHOLESTEROL (test code = 41 MG/DL 2220) CALC LDL CHOL (test code = 2237) NOTE MG/DL RISK RATIO LDL/HDL (test code = (NOTE) RATIO 2238) HEMOGLOBIN [id number] 00:00:00 Test Item Value Reference Range Interpretation Comments HEMOGLOBIN A1c (test code = 66636) 7.0 % HEMOGLOBIN [id number] 00:00:00 Test Item Value Reference Range Interpretation Comments HEMOGLOBIN A1c (test code = 32236) 7.0 % HEMOGLOBIN [id number] 00:00:00 Test Item Value Reference Range Interpretation Comments HEMOGLOBIN A1c (test code = 16948) 7.0 % COMPREHENSIVE METABOLIC [id number] 00:00:00 Test Item Value Reference Range Interpretation Comments GLUCOSE (test code = 2217) 188 MG/DL BUN (test code = 2208) 8 MG/DL CREATININE (test code = 2214) 0.47 MG/DL eGFR AMER. (test code 139 ML/MIN/1.73 = 14049) eGFR NON- AMER. (test 120 ML/MIN/1.73 code = 54413) CALC BUN/CREAT (test code = 17 RATIO [...] code = 2219) 11 U/L COMPREHENSIVE METABOLIC [id number] 00:00:00 Test Item Value Reference Range Interpretation Comments GLUCOSE (test code = 2217) 188 MG/DL BUN (test code = 2208) 8 MG/DL CREATININE (test code = 2214) 0.47 MG/DL eGFR AMER. (test code 139 ML/MIN/1.73 = 57394) eGFR NON- AMER. (test 120 ML/MIN/1.73 code = 65372) CALC BUN/CREAT (test code = 17 RATIO [...] (test code = 2219) 11 U/L LIPID [id number] 00:00:00 Test Item Value Reference Range Interpretation Comments CHOLESTEROL (test code = 2210) 242 MG/DL TRIGLYCERIDES (test code = 2232) 721 MG/DL HDL CHOLESTEROL (test code = 41 MG/DL 2220) CALC LDL CHOL (test code = 2237) NOTE MG/DL RISK RATIO LDL/HDL (test code = (NOTE) RATIO 2238) LIPID [id number] 00:00:00 Test Item Value Reference Range Interpretation Comments CHOLESTEROL (test code = 2210) 242 MG/DL TRIGLYCERIDES (test code = 2232) 721 MG/DL HDL CHOLESTEROL (test code = 41 MG/DL 2220) CALC LDL CHOL (test code = 2237) NOTE MG/DL RISK RATIO LDL/HDL (test code = (NOTE) RATIO 2238) HEMOGLOBIN [id number] 00:00:00 Test Item Value Reference Range Interpretation Comments HEMOGLOBIN A1c (test code = 57515) 7.0 % HEMOGLOBIN [id number] 00:00:00 Test Item Value Reference Range Interpretation Comments HEMOGLOBIN A1c (test code = 81499) 7.0 % HEMOGLOBIN [id number] 00:00:00 Test Item Value Reference Range Interpretation Comments HEMOGLOBIN A1c (test code = 42241) 7.0 % COMPREHENSIVE METABOLIC [id number] 00:00:00 Test Item Value Reference Range Interpretation Comments GLUCOSE (test code = 2217) 188 MG/DL BUN (test code = 2208) 8 MG/DL CREATININE (test code = 2214) 0.47 MG/DL eGFR AMER. (test code 139 ML/MIN/1.73 = 26605) eGFR NON- AMER. (test 120 ML/MIN/1.73 code = 80159) CALC BUN/CREAT (test code = 17 RATIO [...] (test code = 2219) 11 U/L LIPID [id number] 00:00:00 Test Item Value Reference Range Interpretation Comments CHOLESTEROL (test code = 2210) 182 MG/DL TRIGLYCERIDES (test code = 2232) 489 MG/DL HDL CHOLESTEROL (test code = 43 MG/DL 2219) CALC LDL CHOL (test code = 2237) NOTE MG/DL RISK RATIO LDL/HDL (test code = (NOTE) RATIO 8) HEMOGLOBIN [id number] 00:00:00 Test Item Value Reference Range Interpretation Comments HEMOGLOBIN A1c (test code = 86475) 6.1 % HEMOGLOBIN [id number] 00:00:00 Test Item Value Reference Range Interpretation Comments HEMOGLOBIN A1c (test code = 62950) 6.1 % COMPREHENSIVE METABOLIC [id number] 00:00:00 Test Item Value Reference Range Interpretation Comments GLUCOSE (test code = 2217) 169 MG/DL BUN (test code = 2208) 7 MG/DL CREATININE (test code = 2214) 0.51 MG/DL eGFR AMER. (test code 136 ML/MIN/1.73 = 47503) eGFR NON- AMER. (test 118 ML/MIN/1.73 code = 55054) CALC BUN/CREAT (test code = 14 RATIO 5) SODIUM (test code = 2231) 139 MEQ/L POTASSIUM (test code = 2228) 4.2 MEQ/L CHLORIDE (test code = 2215) 99 MEQ/L CARBON DIOXIDE (test code = 27 MEQ/L 2205) CALCIUM (test code = 220) 9.6 MG/DL PROTEIN, TOTAL (test code = [...] code = 2219) 10 U/L COMPREHENSIVE METABOLIC [id number] 00:00:00 Test Item Value Reference Range Interpretation Comments GLUCOSE (test code = 2217) 169 MG/DL BUN (test code = 2208) 7 MG/DL CREATININE (test code = 2214) 0.51 MG/DL eGFR AMER. (test code 136 ML/MIN/1.73 = 76427) eGFR NON- AMER. (test 118 ML/MIN/1.73 code = 97607) CALC BUN/CREAT (test code = 14 RATIO [...] (test code = 2219) 10 U/L LIPID [id number] 00:00:00 Test Item Value Reference Range Interpretation Comments CHOLESTEROL (test code = 2210) 182 MG/DL TRIGLYCERIDES (test code = 2232) 489 MG/DL HDL CHOLESTEROL (test code = 43 MG/DL 2220) CALC LDL CHOL (test code = 2237) NOTE MG/DL RISK RATIO LDL/HDL (test code = (NOTE) RATIO 2238) LIPID [id number] 00:00:00 Test Item Value Reference Range Interpretation Comments CHOLESTEROL (test code = 2210) 182 MG/DL TRIGLYCERIDES (test code = 2232) 489 MG/DL HDL CHOLESTEROL (test code = 43 MG/DL 2220) CALC LDL CHOL (test code = 2237) NOTE MG/DL RISK RATIO LDL/HDL (test code = (NOTE) RATIO 2238) HEMOGLOBIN [id number] 00:00:00 Test Item Value Reference Range Interpretation Comments HEMOGLOBIN A1c (test code = 78568) 6.1 % HEMOGLOBIN [id number] 00:00:00 Test Item Value Reference Range Interpretation Comments HEMOGLOBIN A1c (test code = 85902) 6.1 % HEMOGLOBIN [id number] 00:00:00 Test Item Value Reference Range Interpretation Comments HEMOGLOBIN A1c (test code = 43016) 6.1 % COMPREHENSIVE METABOLIC [id number] 00:00:00 Test Item Value Reference Range Interpretation Comments GLUCOSE (test code = 2217) 169 MG/DL BUN (test code = 2208) 7 MG/DL CREATININE (test code = 2214) 0.51 MG/DL eGFR AMER. (test code 136 ML/MIN/1.73 = 01249) eGFR NON- AMER. (test 118 ML/MIN/1.73 code = 53664) CALC BUN/CREAT (test code = 14 RATIO [...] code = 2219) 10 U/L COMPREHENSIVE METABOLIC [id number] 00:00:00 Test Item Value Reference Range Interpretation Comments GLUCOSE (test code = 2217) 169 MG/DL BUN (test code = 2208) 7 MG/DL CREATININE (test code = 2214) 0.51 MG/DL eGFR AMER. (test code 136 ML/MIN/1.73 = 74395) eGFR NON- AMER. (test 118 ML/MIN/1.73 code = 92591) CALC BUN/CREAT (test code = 14 RATIO [...] CALC GLOBULIN (test code = 2.8 G/DL 224) CALC A/G RATIO (test code = 1.7 RATIO 2234) BILIRUBIN, TOTAL (test code = 0.3 MG/DL 2206) ALKALINE PHOSPHATASE (test 92 U/L code = 2204) AST (test code = 2218) 16 U/L ALT (test code = 2219) 10 U/L LIPID [id number] 00:00:00 Test Item Value Reference Range Interpretation Comments CHOLESTEROL (test code = 2210) 182 MG/DL TRIGLYCERIDES (test code = 2232) 489 MG/DL HDL CHOLESTEROL (test code = 43 MG/DL 2220) CALC LDL CHOL (test code = 2237) NOTE MG/DL RISK RATIO LDL/HDL (test code = (NOTE) RATIO 2238) LIPID [id number] 00:00:00 Test Item Value Reference Range Interpretation Comments CHOLESTEROL (test code = 2210) 182 MG/DL TRIGLYCERIDES (test code = 2232) 489 MG/DL HDL CHOLESTEROL (test code = 43 MG/DL 2220) CALC LDL CHOL (test code = 2237) NOTE MG/DL RISK RATIO LDL/HDL (test code = (NOTE) RATIO 2238) HEMOGLOBIN [id number] 00:00:00 Test Item Value Reference Range Interpretation Comments HEMOGLOBIN A1c (test code = 95271) 6.1 % HEMOGLOBIN [id number] 00:00:00 Test Item Value Reference Range Interpretation Comments HEMOGLOBIN A1c (test code = 68314) 6.1 % HEMOGLOBIN [id number] 00:00:00 Test Item Value Reference Range Interpretation Comments HEMOGLOBIN A1c (test code = 99131) 6.1 % COMPREHENSIVE METABOLIC [id number] 00:00:00 Test Item Value Reference Range Interpretation Comments GLUCOSE (test code = 2217) 169 MG/DL BUN (test code = 2208) 7 MG/DL CREATININE (test code = 2214) 0.51 MG/DL eGFR AMER. (test code 136 ML/MIN/1.73 = 28974) eGFR NON- AMER. (test 118 ML/MIN/1.73 code = 35536) CALC BUN/CREAT (test code = 14 RATIO [...] = 2219) 10 U/L MICROALBUMIN/CREATININE, RANDOM AND [id number] 00:00:00 Test Item Value Reference Range Interpretation Comments CREATININE, URINE, CONC. (test 86.9 MG/DL code = 2072) MICROALBUMIN, RANDOM (test code = 3.2 MG/DL 24285) CALC MICROALB/CREAT RND (test code 37 MG/G = 14299) MICROALBUMIN/CREATININE, RANDOM AND [id number] 00:00:00 Test Item Value Reference Range Interpretation Comments CREATININE, URINE, CONC. (test 86.9 MG/DL code = 2072) MICROALBUMIN, RANDOM (test code = 3.2 MG/DL 66928) CALC MICROALB/CREAT RND (test code 37 MG/G = 43436) MICROALBUMIN/CREATININE, RANDOM AND [id number] 00:00:00 Test Item Value Reference Range Interpretation Comments CREATININE, URINE, CONC. (test 86.9 MG/DL code = 2072) MICROALBUMIN, RANDOM (test code = 3.2 MG/DL 26649) CALC MICROALB/CREAT RND (test code 37 MG/G = 46228) MICROALBUMIN/CREATININE, RANDOM AND [id number] 00:00:00 Test Item Value Reference Range Interpretation Comments CREATININE, URINE, CONC. (test 86.9 MG/DL code = 2072) MICROALBUMIN, RANDOM (test code = 3.2 MG/DL 58638) CALC MICROALB/CREAT RND (test code 37 MG/G = 62990) MICROALBUMIN/CREATININE, RANDOM AND [id number] 00:00:00 Test Item Value Reference Range Interpretation Comments CREATININE, URINE, CONC. (test 86.9 MG/DL code = 2072) MICROALBUMIN, RANDOM (test code = 3.2 MG/DL 25098) CALC MICROALB/CREAT RND (test code 37 MG/G = 50076) MICROALBUMIN/CREATININE, RANDOM AND [id number] 00:00:00 Test Item Value Reference Range Interpretation Comments CREATININE, URINE, TEST NOT PERFORMED MG/DL CONC. (test code = 2072) MICROALBUMIN, RANDOM TEST NOT PERFORMED MG/DL (test code = 94407) CALC MICROALB/CREAT TEST NOT PERFORMED MG/G RND (test code = 44916) MICROALBUMIN/CREATININE, RANDOM AND [id number] 00:00:00 Test Item Value Reference Range Interpretation Comments CREATININE, URINE, TEST NOT PERFORMED MG/DL CONC. (test code = 2072) MICROALBUMIN, RANDOM TEST NOT PERFORMED MG/DL (test code = 79070) CALC MICROALB/CREAT TEST NOT PERFORMED MG/G RND (test code = 50501) MICROALBUMIN/CREATININE, RANDOM AND [id number] 00:00:00 Test Item Value Reference Range Interpretation Comments CREATININE, URINE, TEST NOT PERFORMED MG/DL CONC. (test code = 2072) MICROALBUMIN, RANDOM TEST NOT PERFORMED MG/DL (test code = 69041) CALC MICROALB/CREAT TEST NOT PERFORMED MG/G RND (test code = 97081) MICROALBUMIN/CREATININE, RANDOM AND [id number] 00:00:00 Test Item Value Reference Range Interpretation Comments CREATININE, URINE, TEST NOT PERFORMED MG/DL CONC. (test code = 2072) MICROALBUMIN, RANDOM TEST NOT PERFORMED MG/DL (test code = 50745) CALC MICROALB/CREAT TEST NOT PERFORMED MG/G RND (test code = 59879) MICROALBUMIN/CREATININE, RANDOM AND [id number] 00:00:00 Test Item Value Reference Range Interpretation Comments CREATININE, URINE, TEST NOT PERFORMED MG/DL CONC. (test code = 2072) MICROALBUMIN, RANDOM TEST NOT PERFORMED MG/DL (test code = 72362) CALC MICROALB/CREAT TEST NOT PERFORMED MG/G RND (test code = 00568) HEMOGLOBIN [id number] 00:00:00 Test Item Value Reference Range Interpretation Comments HEMOGLOBIN A1c (test code = 53404) 9.0 % HEMOGLOBIN [id number] 00:00:00 Test Item Value Reference Range Interpretation Comments HEMOGLOBIN A1c (test code = 60850) 9.0 % [id number] 00:00:00 Test Item Value Reference Range Interpretation Comments TSH (test code = 2821) 0.853 UIU/ML [id number] 00:00:00 Test Item Value Reference Range Interpretation Comments TSH (test code = 2821) 0.853 UIU/ML COMPREHENSIVE METABOLIC [id number] 00:00:00 Test Item Value Reference Range Interpretation Comments GLUCOSE (test code = 2217) 298 MG/DL BUN (test code = 2208) 8 MG/DL CREATININE (test code = 2214) 0.39 MG/DL eGFR AMER. (test code 149 ML/MIN/1.73 = 18440) eGFR NON- AMER. (test 129 ML/MIN/1.73 code = 08385) CALC BUN/CREAT (test code = 21 RATIO [...] (test code = 2219) 8 U/L LIPID [id number] 00:00:00 Test Item Value Reference Range Interpretation Comments CHOLESTEROL (test code = 2210) 233 MG/DL TRIGLYCERIDES (test code = 2232) 775 MG/DL HDL CHOLESTEROL (test code = 39 MG/DL 2220) CALC LDL CHOL (test code = 2237) NOTE MG/DL RISK RATIO LDL/HDL (test code = (NOTE) RATIO 2238) CBC W/AUTO [id number] 00:00:00 Test Item Value Reference Range Interpretation [...] code = 1015) 317 K/UL CBC W/AUTO [id number] 00:00:00 Test Item Value Reference Range Interpretation [...] code = 1015) 317 K/UL CBC W/AUTO [id number] 00:00:00 Test Item Value Reference Range Interpretation [...] (test code = 1015) 317 K/UL HEMOGLOBIN [id number] 00:00:00 Test Item Value Reference Range Interpretation Comments HEMOGLOBIN A1c (test code = 44905) 9.0 % HEMOGLOBIN [id number] 00:00:00 Test Item Value Reference Range Interpretation Comments HEMOGLOBIN A1c (test code = 61755) 9.0 % HEMOGLOBIN [id number] 00:00:00 Test Item Value Reference Range Interpretation Comments HEMOGLOBIN A1c (test code = 69989) 9.0 % [id number] 00:00:00 Test Item Value Reference Range Interpretation Comments TSH (test code = 2821) 0.853 UIU/ML [id number] 00:00:00 Test Item Value Reference Range Interpretation Comments TSH (test code = 2821) 0.853 UIU/ML [id number] 00:00:00 Test Item Value Reference Range Interpretation Comments TSH (test code = 2821) 0.853 UIU/ML COMPREHENSIVE METABOLIC [id number] 00:00:00 Test Item Value Reference Range Interpretation Comments GLUCOSE (test code = 2217) 298 MG/DL BUN (test code = 2208) 8 MG/DL CREATININE (test code = 2214) 0.39 MG/DL eGFR AMER. (test code 149 ML/MIN/1.73 = 46496) eGFR NON- AMER. (test 129 ML/MIN/1.73 code = 57867) CALC BUN/CREAT (test code = 21 RATIO [...] code = 2219) 8 U/L COMPREHENSIVE METABOLIC [id number] 00:00:00 Test Item Value Reference Range Interpretation Comments GLUCOSE (test code = 2217) 298 MG/DL BUN (test code = 2208) 8 MG/DL CREATININE (test code = 2214) 0.39 MG/DL eGFR AMER. (test code 149 ML/MIN/1.73 = 17671) eGFR NON- AMER. (test 129 ML/MIN/1.73 code = 43289) CALC BUN/CREAT (test code = 21 RATIO [...] (test code = 2219) 8 U/L LIPID [id number] 00:00:00 Test Item Value Reference Range Interpretation Comments CHOLESTEROL (test code = 2210) 233 MG/DL TRIGLYCERIDES (test code = 2232) 775 MG/DL HDL CHOLESTEROL (test code = 39 MG/DL 2220) CALC LDL CHOL (test code = 2237) NOTE MG/DL RISK RATIO LDL/HDL (test code = (NOTE) RATIO 2238) LIPID [id number] 00:00:00 Test Item Value Reference Range Interpretation Comments CHOLESTEROL (test code = 2210) 233 MG/DL TRIGLYCERIDES (test code = 2232) 775 MG/DL HDL CHOLESTEROL (test code = 39 MG/DL 2220) CALC LDL CHOL (test code = 2237) NOTE MG/DL RISK RATIO LDL/HDL (test code = (NOTE) RATIO 2238) CBC W/AUTO [id number] 00:00:00 Test Item Value Reference Range Interpretation [...] code = 1015) 317 K/UL CBC W/AUTO [id number] 00:00:00 Test Item Value Reference Range Interpretation [...] code = 1015) 317 K/UL CBC W/AUTO [id number] 00:00:00 Test Item Value Reference Range Interpretation [...] (test code = 1015) 317 K/UL HEMOGLOBIN [id number] 00:00:00 Test Item Value Reference Range Interpretation Comments HEMOGLOBIN A1c (test code = 10671) 9.0 % HEMOGLOBIN [id number] 00:00:00 Test Item Value Reference Range Interpretation Comments HEMOGLOBIN A1c (test code = 25797) 9.0 % HEMOGLOBIN [id number] 00:00:00 Test Item Value Reference Range Interpretation Comments HEMOGLOBIN A1c (test code = 38719) 9.0 % [id number] 00:00:00 Test Item Value Reference Range Interpretation Comments TSH (test code = 2821) 0.853 UIU/ML [id number] 00:00:00 Test Item Value Reference Range Interpretation Comments TSH (test code = 2821) 0.853 UIU/ML [id number] 00:00:00 Test Item Value Reference Range Interpretation Comments TSH (test code = 2821) 0.853 UIU/ML COMPREHENSIVE METABOLIC [id number] 00:00:00 Test Item Value Reference Range Interpretation Comments GLUCOSE (test code = 2217) 298 MG/DL BUN (test code = 2208) 8 MG/DL CREATININE (test code = 2214) 0.39 MG/DL eGFR AMER. (test code 149 ML/MIN/1.73 = 21682) eGFR NON- AMER. (test 129 ML/MIN/1.73 code = 16567) CALC BUN/CREAT (test code = 21 RATIO [...] code = 2219) 8 U/L COMPREHENSIVE METABOLIC [id number] 00:00:00 Test Item Value Reference Range Interpretation Comments GLUCOSE (test code = 2217) 298 MG/DL BUN (test code = 2208) 8 MG/DL CREATININE (test code = 2214) 0.39 MG/DL eGFR AMER. (test code 149 ML/MIN/1.73 = 66606) eGFR NON- AMER. (test 129 ML/MIN/1.73 code = 70501) CALC BUN/CREAT (test code = 21 RATIO [...] BILIRUBIN, TOTAL (test code = 0.1 MG/DL 220) ALKALINE PHOSPHATASE (test 81 U/L code = 2204) AST (test code = 2218) 13 U/L ALT (test code = 2219) 8 U/L LIPID [id number] 00:00:00 Test Item Value Reference Range Interpretation Comments CHOLESTEROL (test code = 2210) 233 MG/DL TRIGLYCERIDES (test code = 2232) 775 MG/DL HDL CHOLESTEROL (test code = 39 MG/DL 2220) CALC LDL CHOL (test code = 2237) NOTE MG/DL RISK RATIO LDL/HDL (test code = (NOTE) RATIO 2238) LIPID [id number] 00:00:00 Test Item Value Reference Range Interpretation Comments CHOLESTEROL (test code = 2210) 233 MG/DL TRIGLYCERIDES (test code = 2232) 775 MG/DL HDL CHOLESTEROL (test code = 39 MG/DL 2220) CALC LDL CHOL (test code = 2237) NOTE MG/DL RISK RATIO LDL/HDL (test code = (NOTE) RATIO 2238) CBC W/AUTO [id number] 00:00:00 Test Item Value Reference Range Interpretation [...] code = 1015) 317 K/UL CBC W/AUTO [id number] 00:00:00 Test Item Value Reference Range Interpretation [...] code = 1015) 317 K/UL CBC W/AUTO [id number] 00:00:00 Test Item Value Reference Range Interpretation [...] (test code = 1016) (NOTE) CBC W/AUTO [id number] 00:00:00 Test Item Value Reference Range Interpretation [...] COMMENTS (test code = 1016) (NOTE) HEMOGLOBIN [id number] 00:00:00 Test Item Value Reference Range Interpretation Comments HEMOGLOBIN A1c (test code = 42743) 8.3 % HEMOGLOBIN [id number] 00:00:00 Test Item Value Reference Range Interpretation Comments HEMOGLOBIN A1c (test code = 33363) 8.3 % [id number] 00:00:00 Test Item Value Reference Range Interpretation Comments TSH (test code = 2821) 1.1 UIU/ML [id number] 00:00:00 Test Item Value Reference Range Interpretation Comments TSH (test code = 2821) 1.1 UIU/ML COMPREHENSIVE METABOLIC [id number] 00:00:00 Test Item Value Reference Range Interpretation Comments GLUCOSE (test code = 2217) 196 MG/DL BUN (test code = 2208) 8 MG/DL CREATININE (test code = 2214) 0.48 MG/DL eGFR AMER. (test code 141 ML/MIN/1.73 = 52361) eGFR NON- AMER. (test 122 ML/MIN/1.73 code = 47807) CALCULATED BUN/CREAT (test 17 RATIO code = [...] (test code = 2219) 7 U/L LIPID [id number] 00:00:00 Test Item Value Reference Range Interpretation Comments CHOLESTEROL (test code = 2210) 289 MG/DL TRIGLYCERIDES (test code = 2232) 1092 MG/DL HDL CHOLESTEROL (test code = 2220) 41 MG/DL CALCULATED LDL CHOL (test code = NOTE MG/DL 2237) CBC W/AUTO [id number] 00:00:00 Test Item Value Reference Range Interpretation [...] (test code = 1016) (NOTE) CBC W/AUTO [id number] 00:00:00 Test Item Value Reference Range Interpretation [...] (test code = 1016) (NOTE) CBC W/AUTO [id number] 00:00:00 Test Item Value Reference Range Interpretation [...] COMMENTS (test code = 1016) (NOTE) HEMOGLOBIN [id number] 00:00:00 Test Item Value Reference Range Interpretation Comments HEMOGLOBIN A1c (test code = 95923) 8.3 % HEMOGLOBIN [id number] 00:00:00 Test Item Value Reference Range Interpretation Comments HEMOGLOBIN A1c (test code = 56389) 8.3 % HEMOGLOBIN [id number] 00:00:00 Test Item Value Reference Range Interpretation Comments HEMOGLOBIN A1c (test code = 24332) 8.3 % [id number] 00:00:00 Test Item Value Reference Range Interpretation Comments TSH (test code = 2821) 1.1 UIU/ML [id number] 00:00:00 Test Item Value Reference Range Interpretation Comments TSH (test code = 2821) 1.1 UIU/ML [id number] 00:00:00 Test Item Value Reference Range Interpretation Comments TSH (test code = 2821) 1.1 UIU/ML COMPREHENSIVE METABOLIC [id number] 00:00:00 Test Item Value Reference Range Interpretation Comments GLUCOSE (test code = 2217) 196 MG/DL BUN (test code = 2208) 8 MG/DL CREATININE (test code = 2214) 0.48 MG/DL eGFR AMER. (test code 141 ML/MIN/1.73 = 02638) eGFR NON- AMER. (test 122 ML/MIN/1.73 code = 31566) CALCULATED BUN/CREAT (test 17 RATIO code = 2235) SODIUM (test code = 2231) 133 MEQ/L POTASSIUM (test code = 2228) 4.0 MEQ/L CHLORIDE (test code = 2215) 99 MEQ/L CARBON DIOXIDE (test code = 22 MEQ/L 2206) CALCIUM (test code = 2209) 9.2 MG/DL [...] code = 2219) 7 U/L COMPREHENSIVE METABOLIC [id number] 00:00:00 Test Item Value Reference Range Interpretation Comments GLUCOSE (test code = 2217) 196 MG/DL BUN (test code = 2208) 8 MG/DL CREATININE (test code = 2214) 0.48 MG/DL eGFR AMER. (test code 141 ML/MIN/1.73 = 22613) eGFR NON- AMER. (test 122 ML/MIN/1.73 code = 21861) CALCULATED BUN/CREAT (test 17 RATIO code = [...] (test code = 2219) 7 U/L LIPID [id number] 00:00:00 Test Item Value Reference Range Interpretation Comments CHOLESTEROL (test code = 2210) 289 MG/DL TRIGLYCERIDES (test code = 2232) 1092 MG/DL HDL CHOLESTEROL (test code = 2220) 41 MG/DL CALCULATED LDL CHOL (test code = NOTE MG/DL 2237) LIPID [id number] 00:00:00 Test Item Value Reference Range Interpretation Comments CHOLESTEROL (test code = 2210) 289 MG/DL TRIGLYCERIDES (test code = 2232) 1092 MG/DL HDL CHOLESTEROL (test code = 2220) 41 MG/DL CALCULATED LDL CHOL (test code = NOTE MG/DL 2237) CBC W/AUTO [id number] 00:00:00 Test Item Value Reference Range Interpretation [...] (test code = 1016) (NOTE) CBC W/AUTO [id number] 00:00:00 Test Item Value Reference Range Interpretation [...] (test code = 1016) (NOTE) CBC W/AUTO [id number] 00:00:00 Test Item Value Reference Range Interpretation [...] COMMENTS (test code = 1016) (NOTE) HEMOGLOBIN [id number] 00:00:00 Test Item Value Reference Range Interpretation Comments HEMOGLOBIN A1c (test code = 04335) 8.3 % HEMOGLOBIN [id number] 00:00:00 Test Item Value Reference Range Interpretation Comments HEMOGLOBIN A1c (test code = 34911) 8.3 % HEMOGLOBIN [id number] 00:00:00 Test Item Value Reference Range Interpretation Comments HEMOGLOBIN A1c (test code = 86070) 8.3 % [id number] 00:00:00 Test Item Value Reference Range Interpretation Comments TSH (test code = 2821) 1.1 UIU/ML [id number] 00:00:00 Test Item Value Reference Range Interpretation Comments TSH (test code = 2821) 1.1 UIU/ML [id number] 00:00:00 Test Item Value Reference Range Interpretation Comments TSH (test code = 2821) 1.1 UIU/ML COMPREHENSIVE METABOLIC [id number] 00:00:00 Test Item Value Reference Range Interpretation Comments GLUCOSE (test code = 2217) 196 MG/DL BUN (test code = 2208) 8 MG/DL CREATININE (test code = 2214) 0.48 MG/DL eGFR AMER. (test code 141 ML/MIN/1.73 = 37711) eGFR NON- AMER. (test 122 ML/MIN/1.73 code = 31759) CALCULATED BUN/CREAT (test 17 RATIO code = 2235) SODIUM (test code = 2231) 133 MEQ/L POTASSIUM (test code = 2228) 4.0 MEQ/L CHLORIDE (test code = 2215) 99 MEQ/L CARBON DIOXIDE (test code = 22 MEQ/L 2206) CALCIUM (test code = 2209) 9.2 MG/DL [...] code = 2219) 7 U/L COMPREHENSIVE METABOLIC [id number] 00:00:00 Test Item Value Reference Range Interpretation Comments GLUCOSE (test code = 2217) 196 MG/DL BUN (test code = 2208) 8 MG/DL CREATININE (test code = 2214) 0.48 MG/DL eGFR AMER. (test code 141 ML/MIN/1.73 = 74398) eGFR NON- AMER. (test 122 ML/MIN/1.73 code = 08103) CALCULATED BUN/CREAT (test 17 RATIO code = 2235) SODIUM (test code = 2231) 133 MEQ/L POTASSIUM (test code = 2228) 4.0 MEQ/L CHLORIDE (test code = 2215) 99 MEQ/L CARBON DIOXIDE (test code = 22 MEQ/L 2206) CALCIUM (test code = 2209) 9.2 MG/DL [...] (test code = 2219) 7 U/L LIPID [id number] 00:00:00 Test Item Value Reference Range Interpretation Comments CHOLESTEROL (test code = 2210) 289 MG/DL TRIGLYCERIDES (test code = 2232) 1092 MG/DL HDL CHOLESTEROL (test code = 2220) 41 MG/DL CALCULATED LDL CHOL (test code = NOTE MG/DL 2237) LIPID [id number] 00:00:00 Test Item Value Reference Range Interpretation Comments CHOLESTEROL (test code = 2210) 289 MG/DL TRIGLYCERIDES (test code = 2232) 1092 MG/DL HDL CHOLESTEROL (test code = 2220) 41 MG/DL CALCULATED LDL CHOL (test code = NOTE MG/DL 2237)
--- NOTE | 2022-09-28 14:53 | RAD REPORT ---
EXAM DESCRIPTION: Jeffry Single View09/28/2022 2:17 pm CLINICAL HISTORY: Chest pain COMPARISON: March 2022 FINDINGS: The lungs appear clear of acute infiltrate. The heart is normal size IMPRESSION: No acute abnormalities displayed
[2022-09-28] MEDS ORDERED: ASPIRIN 81 MG CHEWABLE TABLET ONE (14:54)
[2022-09-28] MEDS ORDERED: LORazepam 2 MG/ML VIAL ONE (14:55)
[2022-09-28] MEDS ORDERED: NA CHLORIDE 0.9% 1,000 ML ONE (14:55)
[2022-09-28 14:58] LABS: Absolute Lymphocytes (CBC) 1.7 K/uL (0.7-4.9); Hematocrit 46.4 % (36.0-45.0); Lymphocytes % 21.7 % (15.3-44.8); MCV 90.6 fL (80-100); MPV 7.9 fL (7.6-11.3); Platelets 274 thou/uL (152-406); RBC Red Blood Cell Count 5.12 M/uL (3.86-4.86)
[2022-09-28 15:17] LABS: ALT/SGPT 17 U/L (13-56); AST/SGOT 8 U/L (15-37); Albumin 3.8 g/dL (3.4-5.0); Alkaline Phosphatase 110 U/L (45-117); BUN Blood Urea Nitrogen 12 mg/dL (7-18); Bicarbonate 19 mEq/L (21-32); Bilirubin Total 0.4 mg/dL (0.2-1.0); Glomerular Filtration Rate 76 ml/min (=/>90); Glucose Level 348 mg/dL (74-106); Magnesium 1.7 mg/dL (1.6-2.4); NT PRO-BNP 20 pg/mL (<125); Potassium 3.5 mEq/L (3.5-5.1); Protein, Total 7.3 g/dL (6.4-8.2); Sodium Level 134 mEq/L (136-145); Thyroid Stimulating Hormone 0.852 uIU/mL (0.358-3.740); Troponin High Sensitivity 3.1 pg/mL (<58.9)
[2022-09-28 15:19] LABS: Bilirubin Direct < 0.1 mg/dL (0-0.2); Bilirubin Indirect, Calculated ND mg/dL (0.2-0.8)
--- NOTE | 2022-09-28 16:08 | EDPHYS ---
Physician Documentation [facility] Name: Effie Crouch Age: 47 yrs Sex: Female : 1975 Arrival Date: 09/28/2022 Time: 13:40 Bed 17 Private MD: ED Physician Randal Patterson HPI: 09/28 17:59 This 47 yrs old Female presents to ER via Ambulatory with complaints of Chest rt Pain, Shortness Of Breath. 17:59 Patient presents to the ED with acute onset of chest pain, shortness of breath, rt dizziness. She reports that her anxiety is worsening. She denies other acute complaints at this time. No aggravating or elevating factors. Symptoms are moderate severity.. Historical: - Allergies: 13:56 No Known Allergies; mb9 - Home Meds: 13:56 metformin 1,000 mg Oral tab 1 tab 2 times per day [Active]; lisinopril 10 mg Oral tab 1 mb9 tab once daily [Active]; buspirone 10 mg Oral tablet daily [Active]; - PMHx: 13:56 Anemia; blood transfusion; Diabetes - NIDDM; Hypertension; mb9 - PSHx: 13:56 ; hysterectomy; Cholecystectomy; mb9 - Immunization history:: Adult Immunizations up to date. - Social history:: Smoking status: Patient reports the use of cigarette tobacco products, smokes one-half pack cigarettes per day. - Family history:: not pertinent, pertinent for . ROS: 17:59 Constitutional: Negative for fever, chills, and weight loss, Abdomen/GI: Negative for rt abdominal pain, nausea, vomiting, diarrhea, and constipation, MS/Extremity: Negative for injury and deformity, Skin: Negative for injury, rash, and discoloration, Neuro: Negative for headache, weakness, numbness, tingling, and seizure. 17:59 Cardiovascular: Positive for chest pain, Negative for edema. 17:59 Respiratory: Positive for shortness of breath, Negative for cough. 17:59 Psych: Positive for anxiety. Exam: 17:59 Constitutional: This is a well developed, well nourished patient who is awake, alert, rt and in no acute distress. Head/Face: Normocephalic, atraumatic. Chest/axilla: Normal chest wall appearance and motion. Nontender with no deformity. No lesions are appreciated. Cardiovascular: Regular rate and rhythm with a normal S1 and S2. No gallops, murmurs, or rubs. Normal PMI, no JVD. No pulse deficits. Respiratory: Lungs have equal breath sounds bilaterally, clear to auscultation and percussion. No rales, rhonchi or wheezes noted. No increased work of breathing, no retractions or nasal flaring. Abdomen/GI: Soft, non-tender, with normal bowel sounds. No distension or tympany. No guarding or rebound. No evidence of tenderness throughout. Skin: Warm, dry with normal turgor. Normal color with no rashes, no lesions, and no evidence of cellulitis. MS/ Extremity: Pulses equal, no cyanosis. Neurovascular intact. Full, normal range of motion. Neuro: Awake and alert, GCS 15, oriented to person, place, time, and situation. Cranial nerves II-XII grossly intact. Motor strength 5/5 in all extremities. Sensory grossly intact. Cerebellar exam normal. Normal gait. Psych: Awake, alert, with orientation to person, place and time. Behavior, mood, and affect are within normal limits. 17:59 ECG was reviewed by the Attending Physician. Vital Signs: 13:45 BP 137 / 87; Pulse 118; Resp 18; Temp 98; Pulse Ox 100% ; Weight 64.41 kg; Height 5 ft. mb9 2 in. ; Pain 6/10; 14:15 BP 122 / 55; Pulse 111; Resp 18; Pulse Ox 99% on R/A; eh3 14:45 BP 136 / 66; Pulse 114; Resp 20; Pulse Ox 99% on R/A; eh3 13:45 Body Mass Index 25.97 (64.41 kg, 157.48 cm) mb9 13:45 Pain Scale: Adult mb9 MDM: 14:03 Patient medically screened. rt 18:02 Differential diagnosis: acute myocardial infarction, anxiety, pneumonia, pneumothorax, rt pulmonary embolus. HEART Score: History: Slightly Suspicious (0), ECG: Normal (0), Age: > 45 and < 65 years (1), Risk Factors: 1 or 2 risk factors (1), Troponin: < or = 1 x Normal Limit (0), Total Score = 2. Data reviewed: vital signs, nurses notes, lab test result(s), EKG, radiologic studies. Consideration of Admission/Observation Escalation of care including admission/observation considered. Low heart score, symptoms resolved with Ativan. Troponin is negative. Low suspicion for coronary disease as the etiology, does not require admission for ACS rule out.. I considered the following discharge prescriptions or medication management in the emergency department Medications were administered in the Emergency Department. See MAR. Test considered but Not performed: CT: Negative D-dimer, CT angiogram not indicated. Care significantly affected by the following chronic conditions: Diabetes. Counseling: I had a detailed discussion with the patient and/or guardian regarding: the historical points, exam findings, and any diagnostic results supporting the discharge/admit diagnosis, lab results, radiology results, the need for outpatient follow up, to return to the emergency department if symptoms worsen or persist or if there are any questions or concerns that arise at home. 09/28 14:09 Order name: Basic Metabolic Panel; Complete Time: 16:03 rt 09/28 14:09 Order name: CBC with Diff; Complete Time: 15:13 rt 09/28 14:09 Order name: D-Dimer; Complete Time: 16:03 rt 09/28 14:09 Order name: LFT's; Complete Time: 16:03 rt 09/28 14:09 Order name: Magnesium; Complete Time: 16:03 rt 09/28 14:09 Order name: NT PRO-BNP; Complete Time: 16:03 rt 09/28 14:09 Order name: Troponin HS; Complete Time: 16:03 rt 09/28 14:09 Order name: TSH; Complete Time: 16:03 rt 09/28 14:09 Order name: XRAY Chest (1 view); Complete Time: 14:54 rt 09/28 14:09 Order name: EKG; Complete Time: 14:10 rt 09/28 13:58 Order name: EKG - Nurse/Tech; Complete Time: 13:58 mb9 09/28 14:09 Order name: Cardiac monitoring; Complete Time: 14:24 rt 09/28 14:09 Order name: IV Saline Lock; Complete Time: 14:41 rt 09/28 14:09 Order name: Labs collected and sent; Complete Time: 14:41 rt 09/28 14:09 Order name: O2 Per Protocol; Complete Time: 14:24 rt 09/28 14:09 Order name: O2 Sat Monitoring; Complete Time: 14:24 rt 09/28 15:00 Order name: Labs - recollect needed: recollect ddimer / label printed at [facility]; Complete eb Time: 15:48 EC:59 Rate is 116 beats/min. Rhythm is regular, Sinus tachycardia with No ectopy. QRS [place] is rt Normal. NC interval is normal. QRS interval is normal. QT interval is normal. No Q waves. T waves are Normal. No ST changes noted. Interpreted by me. Administered Medications: 14:51 Drug: Aspirin PO Chewable Tablet 324 mg Route: PO; 3 16:15 Follow up: Response: No adverse reaction 3 14:51 Drug: Ativan IVP 1 mg Route: IVP; Site: right antecubital; 3 16:15 Follow up: Response: No adverse reaction [facility] 14:51 Drug: NS 0.9% IV 1000 ml Route: IV; Rate: 1 bolus; Site: right antecubital; 3 16:15 Follow up: IV Status: Completed infusion; IV Intake: 1000ml [facility] Disposition Summary: 09/28/22 16:08 Discharge Ordered Location: Home rt Problem: new rt Symptoms: are resolved rt Condition: Stable rt Diagnosis - Chest pain, unspecified rt - Type 2 diabetes mellitus with hyperglycemia rt Followup: rt - With: Private Physician - When: 2 - 3 days - Reason: Discharge Instructions: - Discharge Summary Sheet rt - Nonspecific Chest Pain, Adult rt - Hyperglycemia rt Forms: - Medication Reconciliation Form rt - Thank You Letter rt - Antibiotic Education rt - Prescription Opioid Use rt - Patient Portal Instructions rt Signatures: Dispatcher [employer] [place] Mandujano Erin RN RN 3 Deirdre Jasso, RN RN mb9 Randal Patterson MD MD rt
--- NOTE | 2022-09-28 16:08 | ER ---
Nurse's Notes [facility] Name: Effie Crouch Age: 47 yrs Sex: Female : 1975 Arrival Date: 09/28/2022 Time: 13:40 Bed 17 Private MD: Diagnosis: Chest pain, unspecified;Type 2 diabetes mellitus with hyperglycemia Presentation: 09/28 13:45 Chief complaint: Patient states: "I started having chest pain and SOB while at the [facility] [employer] today. I have anxiety and didn't take my medicine but I'm just freaking out. I'm nauseous and dizzy now". Coronavirus screen: At this time, the client does not indicate any symptoms associated with coronavirus-19. Ebola Screen: No symptoms or risks identified at this time. 13:45 Method Of Arrival: Ambulatory [facility] 13:45 Initial Sepsis Screen: Does the patient meet any 2 criteria? No. Patient's initial 9 sepsis screen is negative. Does the patient have a suspected source of infection? No. Patient's initial sepsis screen is negative. Risk Assessment: Do you want to hurt yourself or someone else? Patient reports no desire to harm self or others. Onset of symptoms was September 28, 2022. 13:45 Acuity: MARNI 3 mb9 Triage Assessment: 13:57 General: Appears uncomfortable, Behavior is anxious. Pain: Complains of pain in chest mb9 Pain does not radiate. Quality of pain is described as pressure, Pain began suddenly. Neuro: Cannon Agitation-Sedation Scale (RASS): 0 - Alert and Calm Level of Consciousness is awake, alert, obeys commands, Oriented to person, place, time, situation, Appropriate for age. Cardiovascular: Reports chest pain, lightheadedness, shortness of breath, Patient's skin is warm and dry. Rhythm is sinus tachycardia. Respiratory: Airway is patent. GI: Reports nausea. Derm: Skin is pink, warm \\T\\ dry. Historical: - Allergies: 13:56 No Known Allergies; mb9 - Home Meds: 13:56 metformin 1,000 mg Oral tab 1 tab 2 times per day [Active]; lisinopril 10 mg Oral tab 1 mb9 tab once daily [Active]; buspirone 10 mg Oral tablet daily [Active]; - PMHx: 13:56 Anemia; blood transfusion; Diabetes - NIDDM; Hypertension; mb9 - PSHx: 13:56 ; hysterectomy; Cholecystectomy; mb9 - Immunization history:: Adult Immunizations up to date. - Social history:: Smoking status: Patient reports the use of cigarette tobacco products, smokes one-half pack cigarettes per day. - Family history:: not pertinent, pertinent for . Screenin:05 [facility] ED Fall Risk Assessment (Adult) Score/Fall Risk Level 0 - 2 = Low Risk. Abuse eh3 screen: Denies threats or abuse. Denies injuries from another. Nutritional screening: No deficits noted. Tuberculosis screening: No symptoms or risk factors identified. Assessment: 14:05 General: Appears distressed, uncomfortable, Behavior is cooperative, anxious. Pain: eh3 Complains of pain in chest. Pain: Pain does not radiate. Pain currently is 5 out of 10 on a pain scale. Quality of pain is described as pressure, Pain began 2 hours ago. Neuro: Level of Consciousness is awake, alert, obeys commands, Oriented to person, place, time, situation. Cardiovascular: Capillary refill < 3 seconds Patient's skin is warm and dry. Respiratory: Airway is patent Respiratory effort is even, unlabored, Respiratory pattern is regular, symmetrical. GI: Abdomen is round non-distended. Derm: Skin is healthy with good turgor, Skin is pink, warm \\T\\ dry. Musculoskeletal: Circulation, motion, and sensation intact. 15:00 Reassessment: Patient appears in no apparent distress at this time. Patient and/or eh3 family updated on plan of care and expected duration. Pain level reassessed. Patient is alert, oriented x 3, equal unlabored respirations, skin warm/dry/pink. Patient states symptoms have improved. 15:19 Reassessment: RAC IV infiltrated. Removed IV, catheter intact, no redness at site, eh3 quarter-sized swollen area and pt c/o pain before removal but says it is no longer hurting. Vital Signs: 13:45 BP 137 / 87; Pulse 118; Resp 18; Temp 98; Pulse Ox 100% ; Weight 64.41 kg; Height 5 ft. mb9 2 in. ; Pain 6/10; 14:15 BP 122 / 55; Pulse 111; Resp 18; Pulse Ox 99% on R/A; eh3 14:45 BP 136 / 66; Pulse 114; Resp 20; Pulse Ox 99% on R/A; eh3 13:45 Body Mass Index 25.97 (64.41 kg, 157.48 cm) mb9 13:45 Pain Scale: Adult mb9 ED Course: 13:43 Patient arrived in ED. im 13:45 EKG done, by ED staff, reviewed by Randal Patterson MD. mb9 13:56 Triage completed. mb9 13:57 Arm band placed on. mb9 14:00 Randal Patterson MD is Attending Physician. rt 14:05 Patient has correct armband on for positive identification. Bed in low position. Call eh3 light in reach. Side rails up X2. Provided Education on: Use of call [place]. Client placed on continuous cardiac and pulse oximetry monitoring. NIBP monitoring applied. 14:05 Patient maintains SpO2 saturation greater than 95% on room air. eh3 14:18 XRAY Chest (1 view) In Process Unspecified. EDFL 14:19 Nena Rodríguez, RN is Primary Nurse. 3 16:16 No provider procedures requiring assistance completed. IV discontinued, intact, mb9 bleeding controlled, No redness/swelling at site. Pressure dressing applied. Administered Medications: 14:51 Drug: Aspirin PO Chewable Tablet 324 mg Route: PO; eh3 16:15 Follow up: Response: No adverse reaction eh3 14:51 Drug: Ativan IVP 1 mg Route: IVP; Site: right antecubital; eh3 16:15 Follow up: Response: No adverse reaction eh3 14:51 Drug: NS 0.9% IV 1000 ml Route: IV; Rate: 1 bolus; Site: right antecubital; eh3 16:15 Follow up: IV Status: Completed infusion; IV Intake: 1000ml eh3 Medication: 16:12 VIS not applicable for this client. eh3 Intake: 16:15 IV: 1000ml; Total: 1000ml. eh3 Outcome: 16:08 Discharge ordered by . rt 16:16 Discharged to home ambulatory. mb9 16:16 Condition: stable 16:16 Discharge instructions given to patient, Instructed on discharge instructions, follow up and referral plans. Demonstrated understanding of instructions, follow-up care. 16:16 Patient left the ED. mb9 Signatures: Dispatcher [employer] EDFL Nena Rodríguez, ILSBETH RN 3 Deirdre Jasso RN RN mb9 Randal Patterson MD MD rt Kitty Schneider Corrections: (The following items were deleted from the chart) 21:31 14:05 Pain: Pain does not radiate. Pain currently is 5 out of 10 on a pain scale. eh3 Quality of pain is described as pressure, Pain began 4 hours ago. eh3
[2022-09-28 16:31] VITALS: TEMP 98
[2022-09-28 16:32] VITALS: O2SAT 99
[2022-09-28 16:33] VITALS: BP 136/66
--- NOTE | 2022-09-29 13:03 | EKG ---
Test Date: 2022-09-28 Test Time: 13:54:47 Plan Checker: MB MEASUREMENT RESULTS: Intervals: Rate: 116 NV: 148 QRSD: 66 QT: 334 QTc: 464 Merna: P: 61 NV: 148 QRS: -9 T: 81 INTERPRETIVE STATEMENTS: Sinus tachycardia Low voltage QRS Borderline ECG Compared to ECG 02/20/2022 17:18:15 Low QRS voltage now present Myocardial infarct finding no longer present Electronically Signed On 09-29-22 13:00:30 CDT by Randy Zee
== END 2022-09-28 16:16 | disposition home or self-care (01) ==
LOC: ER 13:40
DX: R07.9 Chest pain, unspecified (principal); E11.65 Type 2 diabetes mellitus with hyperglycemia; I10 Essential (primary) hypertension; F17.210 Nicotine dependence, cigarettes, uncomplicated
CPT/HCPCS: 96361; 93005; 85025; 80048; 36415; 83735; 85379; 80076; 84443; 84484; 83880; 71045; 96374; 99285; J7030

== ENCOUNTER 2022-10-28 17:16 | Emergency (ER) | payer OTHER ==
--- OUTSIDE RECORDS SUMMARY | 2022-10-28 17:27 | XMS REPORT | Continuity of Care Document ---
:1975 Author Organization [facility] t Address [address] [facility] [address] [place] [address] Care Team Providers Name Role Phone Maria Victoria Mckenna Primary Care Physician [phone] MARIA VICTORIA BEAN Attending Clinician Unavailable Sury Choudhary Attending Clinician Unavailable Maria Victoria Mckenna Attending Clinician [phone] SURY SANCHES Attending Clinician Unavailable Doctor Unassigned, Blanket Attending Clinician Unavailable Payers Payer Name Policy Type Policy Number Effective Date Expiration Date S ource Problems Condition Condition Condition Status Onset Resolution Last Treating Co mments Source Name Details Category Date Date Treatment Clinician Date History of History of Disease Active U basil herpes herpes 6-24 ity of genital[facility] [place] History of History of Disease Active U nivers hysterecto hysterecto 1-08 it y of my my 00:00: [place] [address] Medical [place] Vaginal Vaginal Disease Active Univers itching itching 1-08 ity of 00:00: [place] [address] Medical Branch History of History of Disease Active U nivers hypertensi hypertensi 1-08 it y of on on 00:00: [address] Branch Family Family Disease Active Univers history of history of 1-08 it y of diabetes diabetes 00:00: [place] [...] Disease Active 2015-02 U nivers positive positive - ity of high risk high risk [place] HPV HPV 00 [place] cervical cervical Branch Herpes, Herpes, Disease Active 2015-02 Univers vulvar vulvar 0-07 ity of 00:00: [place] [facility] Endometrio Endometrio Disease Active 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 colpo 05/31/2014- negative bx#1 FU Pap ASCUScolp o 12/26/2015 Diabetes Diabetes Disease Active Unive rs 03-23 ity of 00:00: [place] [facility] BMI BMI Disease Active Overview: Univer s 32.0-32.9, 32.0-32.9, 03-23 Formattin ity of adult adult 00:00: g of this 00 note Medical might be Branch different from the original. 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 Social History Social Habit Start Date Stop Date Quantity Comments Source History of tobacco Cigarette Smoker University of use [facility] Alcohol intake 2021-08-16 2021-08-16 0 /d University of 00:00:00 00:00:[address] [facility] Cigarettes smoked 2019-02-03 2019-02-03 Univers ity of current (pack per 00:00:00 00:00:00 [place] ) - Reported Branch Tobacco use and 2019-02-03 2019-02-03 Smokeless Universit y of exposure 00:00:00 00:00:00 tobacco non-user [facility]igarette 2019-02-03 2019-02-03 University of pack-years 00:00:00 00:00:[address] [facility] Tobacco Comment 2014-03-23 2014-03-23 smokes 7 x per Unive rsity of 00:00:00 00:00:[address] [facility] Sex Ass[birth year] At [birth year] Universit y of 00:00:00 00:00:[address] [facility] Smoking Status Start Date Stop Date Source Smokes tobacco daily 2019-02-03 00:00:[address] [facility] Medications Ordered Filled Start Stop Current Ordering Indication Dosage Frequency Signature Comments Components Source Medication Medication Date Date Medication? Clinician (SIG) Name Name TAKE 1 2022-0 No TABLET BY 8-25 MOUTH TWICE 00:00: DAILY FOR 5 00 DAYS TAKE 1 2-0 No TABLET BY 8-25 MOUTH TWICE 00:00: DAILY FOR 5 00 DAYS acyclovir 2-0 Yes [id number] 400mg Take 1 Univers 400 mg 8-18 tablet by ity of tablet 00:00: mouth in [place] [address] [facility] morning [place] and 1 tablet in the evening. acyclovir 2-0 Yes [id number] 400mg Take 1 Univers 400 mg 8-18 tablet by ity of tablet 00:00: mouth in [address] and 1 tablet in the evening. lisinopril 2-0 No 1mg 5 mg tablet 09-12 00:00: 00 lisinopril 2-0 No 1mg 5 mg tablet 09-12 00:00: 00 ondansetron 2-0 No 1mg 4 mg 7-08 disintegrat 00:00: ing tablet 00 Dose 2-0 No Unknown 7-08 00:00: 00 Dose 2022-0 No Unknown 7-08 00:00: 00 Dose 2-0 [...] 2022-0 No Unknown 7-06 00:00: 00 Victoza 2021-0 No (18 3-Noah 0.6 6-15 mg/3 mg/0.1 mL 00:00: mL) (18 mg/3 00 mL) subcutaneou s pen injector ergocalcife 2021-0 No 1(50,00 rol 6-15 0 unit) (vitamin [...] 00:00: unit/mL 00 subcutaneou s suspension lisinopril 2-0 No 1mg 5 mg tablet 6-10 00:00: [...] 00:00: nded 00 release 24hr (osmotic) metformin 2019-0 No 2mg ER 500 mg 2-11 tablet,exte 00:00: nded 00 release 24hr (osmotic) insulin NPH 2018-02 Yes inject Univ ers hum/reg 2-12 under the ity of insulin hm 09:33: skin. [place] (INSULIN 13 Medical 70/30 SC) Branch metformin 2018-02 Yes Take by Unive rs HCl 2-12 mouth. ity of (METFORMIN 09:33: [place] ORAL) [address] [place] [address] insulin NPH 2018-02 Yes inject Univ ers hum/reg 2-12 under the ity of insulin hm 09:33: skin. [place] (INSULIN 13 Medical 70/30 SC) [place] metformin 2018-02 Yes Take by Unive rs HCl 2-12 mouth. ity of (METFORMIN 09:33: [place] ORAL) [address] [place] [address] Novolin 2018-02 No unit/mL 70/30 U-100 1-22 (70-30) Insulin 100 00:00: unit/mL 00 subcutaneou s suspension lisinopril 2018-02 No 1mg 5 mg tablet 22 00:00: 00 metformin 2018-02 No 2mg ER 500 mg 1-22 tablet,exte 00:00: nded 00 release 24hr (osmotic) Novolin 2018-02 No unit/mL 70/30 U-100 1-22 (70-30) Insulin 100 00:00: unit/mL 00 subcutaneou s suspension lisinopril 2018-02 No 1mg 5 mg tablet 22 00:00: 00 metformin 2018- No 2mg ER 500 mg 1-22 tablet,exte 00:00: nded 00 release 24hr (osmotic) lovastatin 2018-02 No 1mg 40 mg 1-22 tablet 00:00: 00 lovastatin 2018-02 No 1mg 40 mg 1-22 tablet 00:00: 00 Novolin 2018-02 No unit/mL 70/30 U-100 1-22 (70-30) Insulin 100 00:00: unit/mL 00 subcutaneou s suspension lisinopril 2018-02 No 1mg 5 mg tablet -22 00:00: 00 metformin 2018-02 No 2mg ER [...] 00:00: tablet,12 00 hr sustained-r elease lovastatin 2017- No 1mg 40 mg 1-05 tablet 00:00: [...] 00:00: unit/mL 00 subcutaneou s solution bupropion 2017- No 1mg HCl SR 150 0-03 mg 00:00: tablet,12 00 hr sustained-r elease bupropion 2017-1 No 1mg HCl SR 150 0-03 mg 00:00: tablet,12 00 hr sustained-r elease bupropion 2017- No 1mg HCl SR 150 0-03 mg [...] Immunizations Ordered Filled Immunization Date Status Comments [facility] e Immunization Name Name Influenza, 2020-02-10 Completed seasonal, inj 00:00:00 Influenza, 2020-02-10 Completed seasonal, inj 00:00:00 Influenza, 2020-02-10 Completed seasonal, inj 00:00:00 Influenza Virus 2019-02-03 Completed Universit y of Vaccine Quad .5 mL 00:00:00 [facility] 6+ MO Branch Influenza Virus 2019-02-03 Completed Universit y of Vaccine Quad .5 mL 00:00:00 [facility] 6+ MO Branch Influenza Virus 2018-01-28 Completed Universit y of Vaccine Quad .5 mL 00:00:00 [facility] IM 6+ MO Branch Influenza Virus 2018-01-28 Completed Universit y of Vaccine Quad .5 mL 00:00:00 [facility] 6+ MO Branch TDAP 2014-03-23 Completed [facility] 00:00:[address] [facility] TDAP 2014-03-23 Completed [facility] 00:00:[address] [facility] Vital Signs Vital Name Observation Time Observation [...] Goal Plan of Care Note [code = 62563-5] Goal Plan of Care Note [code = 64909-2] Goal Plan of Care Note [code = 78742-9] Goal Plan of Care Note [code = 12509-3] Goal Plan of Care Note [code = 24987-9] Goal Plan of Care Note [code = 18405-6] Goal Plan of Care Note [code = 20131-9] Goal Plan of Care Note [code = 07761-0] Goal Plan of Care Note [code = 62542-1] Goal Plan of Care Note [code = 72241-3] Goal Plan of Care Note [code = 88864-3] Goal Plan of Care Note [code = 68108-9] Goal Plan of Care Note [code = 36336-6] Goal Plan of Care Note [code = 20080-6] Goal Plan of Care Note [code = 41246-4] Goal Plan of Care Note [code = 26060-8] Goal Plan of Care Note [code = 14036-9] Goal Plan of Care Note [code = 44686-4] Goal Plan of Care Note [code = 93141-7] Goal Plan of Care Note [code = 32225-4] Goal Plan of Care Note [code = 01539-9] Goal Plan of Care Note [code = 40189-2] Goal Plan of Care Note [code = 22909-8] Goal Plan of Care Note [code = 06393-3] Goal Plan of Care Note [code = 97546-5] Goal Plan of Care Note [code = 08261-6] Goal Plan of Care Note [code = 90673-9] Goal Plan of Care Note [code = 30606-7] Goal Plan of Care Note [code = 48291-1] Goal Plan of Care Note [code = 48052-0] Goal Plan of Care Note [code = 56772-4] Goal Plan of Care Note [code = 06543-4] Goal Plan of Care Note [code = 69882-5] Goal Plan of Care Note [code = 35531-2] Goal Plan of Care Note [code = 72131-0] Goal Plan of Care Note [code = 24087-3] Goal Plan of Care Note [code = 83545-1] Goal Plan of Care Note [code = 94224-7] Goal Plan of Care Note [code = 45940-7] Goal Plan of Care Note [code = 79032-0] Goal Plan of Care Note [code = 73923-8] Goal Plan of Care Note [code = 13715-5] Goal Plan of Care Note [code = 35635-1] Goal Plan of Care Note [code = 59464-9] Goal Plan of Care Note [code = 69158-4] Goal Plan of Care Note [code = 33926-8] Goal Plan of Care Note [code = 90493-7] Goal Plan of Care Note [code = 85054-3] Goal Plan of Care Note [code = 85849-7] Goal Plan of Care Note [code = 50220-1] Goal Plan of Care Note [code = 00724-1] Goal Plan of Care Note [code = 52115-5] Goal Plan of Care Note [code = 49205-6] Goal Plan of Care Note [code = 19668-1] Goal Plan of Care Note [code = 17515-4] Goal Plan of Care Note [code = 39986-3] Goal Plan of Care Note [code = 42418-1] Goal Plan of Care Note [code = 41717-6] Goal Plan of Care Note [code = 94721-9] Goal Plan of Care Note [code = 59664-8] Goal Plan of Care Note [code = 85278-6] Goal Plan of Care Note [code = 06614-6] Goal Plan of Care Note [code = 42855-0] Goal Plan of Care Note [code = 34832-7] Goal Plan of Care Note [code = 34459-3] Goal Plan of Care Note [code = 34374-9] Goal Plan of Care Note [code = 69646-7] Goal Plan of Care Note [code = 62539-9] Goal Plan of Care Note [code = 73099-3] Goal Plan of Care Note [code = 13931-3] Goal Plan of Care Note [code = 01663-5] Goal Plan of Care Note [code = 65450-5] Goal Plan of Care Note [code = 01256-5] Goal Plan of Care Note [code = 58579-9] Goal Plan of Care Note [code = 03415-1] Goal Plan of Care Note [code = 02276-3] Goal Plan of Care Note [code = 11008-8] Goal Plan of Care Note [code = 56225-2] Goal Plan of Care Note [code = 08410-0] Goal Plan of Care Note [code = 16348-7] Goal Plan of Care Note [code = 79855-4] Goal Plan of Care Note [code = 72432-8] Goal Plan of Care Note [code = 63247-0] Goal Plan of Care Note [code = 16330-1] Goal Plan of Care Note [code = 20133-8] Goal Plan of Care Note [code = 12599-6] Goal Plan of Care Note [code = 46284-3] Goal Plan of Care Note [code = 52639-6] Goal Plan of Care Note [code = 49131-0] Goal Plan of Care Note [code = 03817-2] Goal Plan of Care Note [code = 70384-6] Goal Plan of Care Note [code = 57081-4] Goal Plan of Care Note [code = 64522-3] Goal Plan of Care Note [code = 35787-3] Goal Plan of Care Note [code = 99113-5] Goal Plan of Care Note [code = 14016-0] Goal Plan of Care Note [code = 50517-5] Goal Plan of Care Note [code = 62969-2] Goal Plan of Care Note [code = 68775-3] Encounters Start End Encounter Admission Attending Care Care Encounter Source Date/Time Date/Time Type Type Clinicians Facility Department ID 2022-08-22 2022-08-22 Outpatient R [facility] [id number] Univers 13:00:00 13:00:[address] [facility] 2022-07-08 2022-07-08 Telephone [facility] [id number] Univers 00:00:00 00:00:00 Paigealia Bender COLLECTIONS ATTORNEY [id number] ity [facility] [id number] Billy as MATERNAL [id number] [facility] ical & CHILD [address] [place] [address] 2022-03-14 2022-03-14 Outpatient [facility] [id number] Jl 11:42:30 11:42:30 0120 [facility] 2022-03-13 2022-03-[address] [facility] [id number] Jl 15:56:56 15:56:56 0119 [facility] 2021-11-18 2021-11-18 Outpatient [id number] 00:00:00 00:00:00 Visit 968f-4285 68f-4285-b -bff4-e01 ff4-e01f7b z1lz8941k u5194n 2021-10-10 2021-10-10 [facility] [id number] Univers 00:00:00 00:00:00 Sury Bender COLLECTIONS ATTORNEY [id number] ity of [facility] 4.2.7.2.686 Billy as MATERNAL [id number] [facility] & CHILD [address] [place] [address] 2021-10-08 2021-10-08 [facility] [id number] Univers 00:00:00 00:00:00 Sury Bender COLLECTIONS ATTORNEY [id number] ity [facility] 4.2.7.2.686 Billy as MATERNAL [id number] [facility] & [address] 2021-09-09 2021-09-09 Outpatient [id number] [id number]-9 00:00:00 00:00:00 Visit 5710-46a0 710-46a0-8 -8ace-51a juanita-51ab6a r3qy52ckp d09cee 2021-08-30 2021-08-30 Outpatient [id number] 00:00:00 00:00:00 Visit 9dbd-41b0 dbd-41b0-b -fl74-48q b82-86l3r8 9l35742sc 6086ca 2021-08-27 2021-08-[address] [facility].840.114 [id number] [facility] 00:00:00 00:00:00 Maria Victoria Obando COLLECTIONS ATTORNEY [id number] ity [facility] [id number] Billy as MATERNAL [id number] [address] 2021-08-16 2021-08-16 Outpatient [facility] [id number] Univers 09:00:00 09:54:52 PORFIRIONDA ity o f [facility] 2021-08-16 2021-08-16 Office [facility] 1.2.840.114 [id number] Univers 09:00:00 09:54:52 Visit Sury Bender COLLECTIONS ATTORNEY [id number] ity [facility] 4.2.7.2.686 Billy as MATERNAL [id number] [facility] & [address] 2021-08-16 2021-08-16 Outpatient [facility] [id number] Univers 09:00:00 09:00:00 PORFIRIONDA ity o f [facility] 2021-08-16 2021-08-16 Outpatient R GUANAKO [facility] [id number] Univers 08:30:00 08:30:00 PORFIRIONDYazmin ity o f [facility] 2021-08-16 2021-08-16 Orders Doctor RAY [id number] Univers 00:00:00 00:00:00 Only Unassigned, [place]NE 350.1.13.10 ity of [place] [facility] 4.2.7.2.686 Billy as [id number] [address] 2021-07-28 2021-07-28 Refill [facility] 1.2.840.114 [id number] Univers 00:00:00 00:00:00 Lexxa R COLLECTIONS ATTORNEY [id number] ity of [facility] 4.2.7.2.686 Billy as MATERNAL [id number] [facility] ical & CHILD [address] [place] [address] 2020-06-27 2020-06-27 [facility]phone [facility] 1.2.840.114 [id number] Univers 00:00:00 00:00:00 Maria Victoria Obando COLLECTIONS ATTORNEY [id number] ity of [facility] 4.2.7.2.686 Billy as MATERNAL [id number] [facility] & CHILD [address] [place] [address] 2020-05-22 2020-05-22 Refill [facility] 1.2.840.114 [id number] Univers 00:00:00 00:00:00 Lexxa R COLLECTIONS ATTORNEY 350.1.13.10 ity of [facility] 4.2.7.2.686 Billy as MATERNAL [id number] [facility] ical & CHILD [address] [place] [address] 2020-05-22 2020-05-22 Refill [facility] 1.2.840.114 [id number] 00:00:00 00:00:00 Lexxa R COLLECTIONS ATTORNEY 350.1.13.10 REGIONAL 4.2.7.2.686 MATERNAL [id number] & [address] 2020-05-21 2020-05-21 Refill [facility] [id number] Univers 00:00:00 00:00:00 Maria Victoria C COLLECTIONS ATTORNEY 350.1.13.10 ity of REGIONAL 4.2.7.2.686 Billy as MATERNAL [id number] [facility] & CHILD [address] [place] [address] 2020-05-21 2020-05-21 [facility] [id number] 00:00:00 00:00:00 Maria Victoria C COLLECTIONS ATTORNEY 350.1.13.10 REGIONAL 4.2.7.2.686 MATERNAL [id number] & CHILD [address] [place] [address] 2020-04-03 2020-04-03 Outpatient R GUANAKO [facility] [id number] Univers 00:00:00 00:00:00 PORFIRIONDA osvaldo o [facility] 2020-03-06 2020-03-06 Telephone [facility] [id number] 00:00:00 00:00:00 Rosnda R COLLECTIONS ATTORNEY 350.1.13.10 REGIONAL 4.2.7.2.686 MATERNAL [id number] & [address] 2020-03-06 2020-03-06 [facility] [id number] [facility] 00:00:00 00:00:00 Rosnda R COLLECTIONS ATTORNEY 350.1.13.10 ity of REGIONAL 4.2.7.2.686 Billy as MATERNAL [id number] [facility] & CHILD [address] [place] [address] 2020-03-02 2020-03-02 Office [facility] 1.2.840.114 [id number] Univers 09:22:04 10:49:08 [facility] 350.1.13.10 ity of REGIONAL 4.2.7.2.686 Billy as MATERNAL [id number] [facility] & CHILD [address] [place] [address] 2020-03-02 2020-03-02 Outpatient R GUANAKO [facility] [id number] Univers 09:30:00 09:30:00 PORFIRIONDA ity o [facility] 2020-03-02 2020-03-02 Outpatient R GUANAKO [facility] [id number] Univers 09:30:00 09:30:00 SURY gonzalez rubén [facility] 2020-03-02 2020-03-02 Outpatient R YARA, [facility] [id number] Univers 09:00:00 09:00:00 MARIA VICTORIA riley o f [facility] 2020-03-02 2020-03-02 Orders Doctor RAY 1.2.840.114 [id number] Univers 00:00:00 00:00:00 Only Unassigned, [place]NE 350.1.13.10 ity of [place] [facility]OSPITAL 4.2.7.2.686 Billy as [id number] [address] 2020-02-29 2020-02-29 Telephone [facility] 1.2.840.114 [id number] Univers 00:00:00 00:00:00 Maria Victoria C COLLECTIONS ATTORNEY 350.1.13.10 ity of REGIONAL 4.2.7.2.686 Billy as MATERNAL [id number] [facility] & CHILD [address] [place] [address] 2020-02-29 2020-02-29 Refill [facility] [id number] Univers 00:00:00 00:00:00 Maria Victoria C COLLECTIONS ATTORNEY 350.1.13.10 ity of REGIONAL 4.2.7.2.686 Billy as MATERNAL [id number] [facility] & CHILD [address] [place] [address] 2019-12-30 2019-12-30 Orders Doctor RAY 1.2.840.114 [id number] Univers 00:00:00 00:00:00 Only Unassigned, [place] 350.1.13.10 ity of [place] HOSPITAL 4.2.7.2.686 Billy as [id number] [address] 2019-08-02 2019-08-02 Outpatient Napoleon SANCHES [facility] [id number] Univers 08:15:00 08:15:00 SURY gonzalez rubén [facility] 2019-08-02 2019-08-02 Office [facility] 1.2.840.114 [id number] Univers 07:45:14 08:13:52 Visit Sury Bender COLLECTIONS ATTORNEY 350.1.13.10 ity of [facility] 4.2.7.2.686 Billy as MATERNAL [id number] [facility] ical & CHILD [address] [place] [address] 2019-07-29 2019-07-29 Telephone Yara [facility] 1.2.840.114 [id number] Univers 00:00:00 00:00:00 Maria Victoria Obando COLLECTIONS ATTORNEY 350.1.13.10 ity of [facility] 4.2.7.2.686 Billy as MATERNAL [id number] [facility] & CHILD [address] [place] [address] Results Test Description Test Time Test Comments Results Result Comments Source COMPREHENSIVE METABOLIC PANEL 2022-03-15 06:45:27 Test Item Value Reference Range Interpretation Comme nts GLUCOSE (test code = 2217) 156 MG/DL 70-99 H BUN (test code = 2208) 5 MG/DL 6-20 L CREATININE (test code = 0.53 MG/DL 0.60-1.30 L 2213) eGFR (2020 CKD-EPI) (test 114 ML/MIN/1.73 >60 code = 63703) CALC BUN/CREAT (test code = 9 RATIO [...] code = 2219) 25 U/L 5-40 LIPID [id number] 06:45:27 Test Item Value Reference Range Interpretation [...] MOREINFORMATION , SEE CLIENT ANNOUNCE MENT AT [email or web address]-[email or web address] RISK RATIO LDL/HDL (NOTE) RATIO <3.22 UNABLE TO CALCULATE (test code = 2238) HEMOGLOBIN [id number] 03:11:31 Test Item Value Reference Range Interpretation Comments HEMOGLOBIN A1c (test 7.6 % 4.2-5.6 H AMERIC AN DIABETES code = 84831) ASSOCIATION [employer] FOR HGB A1C: PREDIABETES/INC REASED [...] INDICATED, ALL TESTING PER FORMED ATCLINICAL PATH [facility], [place] [address] [place], [place] [address] LABORATORY DIRE CTOR: MARLENE GONZALEZ M.D. CLIA NUMBER [id number] [place]. [id number] CBC W/AUTO DIFF WITH [id number] 02:40:09 Test Item Value Reference Range Interpretation [...] RBCS 0.00 K/UL 0.00-0.11 (test code = 06188) LIPID [id number] 04:31:34 Test Item Value Reference Range Interpretation Comments CHOLESTEROL (test 289 MG/DL <200 H code = 2210) TRIGLYCERIDES (test 1152 MG/DL <150 H DYLAN CIMEN LIPEMIC code = 2232) RESULTS RECHECK [...] MOREINFORMATION , SEE CLIENT ANNOUNCE MENT AT [email or web address] CalcLDL-C RISK RATIO LDL/HDL (NOTE) RATIO <3.22 UNABLE T O CALCULATE (test code = 2237) COMPREHENSIVE METABOLIC [id number] 04:31:34 Test Item Value Reference Range Interpretation Comments GLUCOSE (test code = 103 MG/DL 70-99 H 2216) BUN (test code = 7 MG/DL 6-20 2207) CREATININE (test 0.53 MG/DL 0.60-1.30 L code = 2214) eGFR (2020 CKD-EPI) 114 >60 (test code = 47819) ML/MIN/1.73 CALC BUN/CREAT (test 13 RATIO 6-28 code = 2235) SODIUM (test code = 140 MEQ/L 365-595 2761) POTASSIUM (test code 3.9 MEQ/L 3.5-5.4 = [...] [Automated message] (test code = 220) The [employer] which generated this result transmitted ref erence range: <=1.2. T he reference range was not used to int erpret this result as normal/abnormal . ALKALINE PHOSPHATASE 74 U/L 40-123 (test code = 2203) AST (test code = 20 U/L 9-40 2217) ALT (test code = 25 U/L 5-40 UNLESS OTH ERWISE 2218) INDICATED, ALL TESTING PERFORM ED ATCLINICAL PATH [facility]. [address] [place] [id number] [place] [address] DIRECTOR: MARLENE GONZALEZ M.D. CLIA NUMBER [id number] CAP ACCREDITATION N O. [id number] HEMOGLOBIN [id number] 03:56:58 Test Item Value Reference Range Interpretation Comments HEMOGLOBIN A1c (test 7.6 % 4.2-5.6 H AMERIC AN DIABETES code = 15026) ASSOCIATION [employer]LIN[employer] FOR HGB A1C: PREDIABETES/INC REASED [...] ATE TESTING OR LABORATORY C ONSULTATION. LIPID [id number] 00:00:00 Test Item Value Reference Range Interpretation Comments CHOLESTEROL (test code = 2210) 289 MG/DL TRIGLYCERIDES (test code = 2232) 1152 MG/DL HDL CHOLESTEROL (test code = 29 MG/DL 2219) CALC LDL CHOL (test code = 223) (NOTE) MG/DL RISK RATIO LDL/HDL (test code = (NOTE) RATIO 2238) LIPID [id number] 00:00:00 Test Item Value Reference Range Interpretation Comments CHOLESTEROL (test code = 2210) 289 MG/DL TRIGLYCERIDES (test code = 2232) 1152 MG/DL HDL CHOLESTEROL (test code = 29 MG/DL 0) CALC LDL CHOL (test code = 2237) (NOTE) MG/DL RISK RATIO LDL/HDL (test code = (NOTE) RATIO 2238) HEMOGLOBIN [id number] 00:00:00 Test Item Value Reference Range Interpretation Comments HEMOGLOBIN A1c (test code = 31287) 7.6 % HEMOGLOBIN [id number] 00:00:00 Test Item Value Reference Range Interpretation Comments HEMOGLOBIN A1c (test code = 22194) 7.6 % HEMOGLOBIN [id number] 00:00:00 Test Item Value Reference Range Interpretation Comments HEMOGLOBIN A1c (test code = 87874) 7.6 % COMPREHENSIVE METABOLIC [id number] 00:00:00 Test Item Value Reference Range Interpretation Comments GLUCOSE (test code = 2217) 103 MG/DL BUN (test code = 2208) 7 MG/DL CREATININE (test code = 2214) 0.53 MG/DL eGFR (2020 CKD-EPI) (test 114 ML/MIN/1.73 code = 67213) CALC BUN/CREAT (test code = 13 RATIO 5) SODIUM (test code = 2231) 140 MEQ/L [...] code = 2219) 25 U/L COMPREHENSIVE METABOLIC [id number] 00:00:00 Test Item Value Reference Range Interpretation Comments GLUCOSE (test code = 2217) 103 MG/DL BUN (test code = 2208) 7 MG/DL CREATININE (test code = 2214) 0.53 MG/DL eGFR (2020 CKD-EPI) (test 114 ML/MIN/1.73 code = 40739) CALC BUN/CREAT (test code = 13 RATIO [...] (test code = 2219) 25 U/L LIPID [id number] 00:00:00 Test Item Value Reference Range Interpretation Comments CHOLESTEROL (test code = 2210) 289 MG/DL TRIGLYCERIDES (test code = 2232) 1152 MG/DL HDL CHOLESTEROL (test code = 29 MG/DL 2220) CALC LDL CHOL (test code = 2237) (NOTE) MG/DL RISK RATIO LDL/HDL (test code = (NOTE) RATIO 2238) LIPID [id number] 00:00:00 Test Item Value Reference Range Interpretation Comments CHOLESTEROL (test code = 2210) 289 MG/DL TRIGLYCERIDES (test code = 2232) 1152 MG/DL HDL CHOLESTEROL (test code = 29 MG/DL 2220) CALC LDL CHOL (test code = 2237) (NOTE) MG/DL RISK RATIO LDL/HDL (test code = (NOTE) RATIO 2238) HEMOGLOBIN [id number] 00:00:00 Test Item Value Reference Range Interpretation Comments HEMOGLOBIN A1c (test code = 73481) 7.6 % HEMOGLOBIN [id number] 00:00:00 Test Item Value Reference Range Interpretation Comments HEMOGLOBIN A1c (test code = 22257) 7.6 % HEMOGLOBIN [id number] 00:00:00 Test Item Value Reference Range Interpretation Comments HEMOGLOBIN A1c (test code = 64479) 7.6 % COMPREHENSIVE METABOLIC [id number] 00:00:00 Test Item Value Reference Range Interpretation Comments GLUCOSE (test code = 2217) 103 MG/DL BUN (test code = 2208) 7 MG/DL CREATININE (test code = 2214) 0.53 MG/DL eGFR (2020 CKD-EPI) (test 114 ML/MIN/1.73 code = 05564) CALC BUN/CREAT (test code = 13 RATIO [...] code = 2219) 25 U/L COMPREHENSIVE METABOLIC [id number] 00:00:00 Test Item Value Reference Range Interpretation Comments GLUCOSE (test code = 2217) 103 MG/DL BUN (test code = 2208) 7 MG/DL CREATININE (test code = 2214) 0.53 MG/DL eGFR (2020 CKD-EPI) (test 114 ML/MIN/1.73 code = 26777) CALC BUN/CREAT (test code = 13 RATIO [...] A/G RATIO (test code = 1.9 RATIO 4) BILIRUBIN, TOTAL (test code = 0.3 MG/DL 2206) ALKALINE PHOSPHATASE (test 74 U/L code = 2204) AST (test code = 2218) 20 U/L ALT (test code = 2219) 25 U/L ALBUMIN/CREATININE RATIO, URINE, [id number] 06:08:56 Test Item Value Reference Range Interpretation Comments CREATININE, URINE, 170.9 MG/DL NOT ESTAB RANDOM (test code = 2072) ALBUMIN, URINE, 45.7 MG/DL NOT ESTAB RANDOM (test code = 45804) CALC ALBUMIN/CREAT, 267 MG/G <30 H Note: RND (test code = Albumin/Cre atinine 63719) ratio reference interval reflec ts ADA and NKF guideli des. VITAMIN D, 25 [id number] 04:23:26 Test Item Value Reference Range Interpretation Comments VITAMIN D, 25 OH 9 NG/ML SEE BELOW L NOTE: 25-H YDROXYVITAMIN D (test code = 4958) ASSAY INC LUDES 25-HYDROXYVITAM IN D2 AND D3. METHODOLOGY IS CHEMILUMINESCEN T IMMUNOASSAY. * INTERPRETIVE RA NGES PEDIATRIC (<17 YEARS) . [...] . . NG/ML 30-100 MICROALBUMIN/CREATININE, RANDOM AND [id number] 00:00:00 Test Item Value Reference Range Interpretation Comments CREATININE, URINE, RANDOM (test 170.9 MG/DL code = 2072) ALBUMIN, URINE, RANDOM (test code 45.7 MG/DL = 06003) CALC ALBUMIN/CREAT, RND (test 267 MG/G code = 39910) VITAMIN D, 25 [id number] 00:00:00 Test Item Value Reference Range Interpretation Comments VITAMIN D, 25 OH (test code = 4958) 9 NG/ML MICROALBUMIN/CREATININE, RANDOM AND [id number] 00:00:00 Test Item Value Reference Range Interpretation Comments CREATININE, URINE, RANDOM (test 170.9 MG/DL code = 2072) ALBUMIN, URINE, RANDOM (test code 45.7 MG/DL = 38615) CALC ALBUMIN/CREAT, RND (test 267 MG/G code = 36728) MICROALBUMIN/CREATININE, RANDOM AND [id number] 00:00:00 Test Item Value Reference Range Interpretation Comments CREATININE, URINE, RANDOM (test 170.9 MG/DL code = 2072) ALBUMIN, URINE, RANDOM (test code 45.7 MG/DL = 52549) CALC ALBUMIN/CREAT, RND (test 267 MG/G code = 77139) VITAMIN D, 25 [id number] 00:00:00 Test Item Value Reference Range Interpretation Comments VITAMIN D, 25 OH (test code = 4958) 9 NG/ML VITAMIN D, 25 [id number] 00:00:00 Test Item Value Reference Range Interpretation Comments VITAMIN D, 25 OH (test code = 4958) 9 NG/ML MICROALBUMIN/CREATININE, RANDOM AND [id number] 00:00:00 Test Item Value Reference Range Interpretation Comments CREATININE, URINE, RANDOM (test 170.9 MG/DL code = 2072) ALBUMIN, URINE, RANDOM (test code 45.7 MG/DL = 80763) CALC ALBUMIN/CREAT, RND (test 267 MG/G code = 00168) MICROALBUMIN/CREATININE, RANDOM AND [id number] 00:00:00 Test Item Value Reference Range Interpretation Comments CREATININE, URINE, RANDOM (test 170.9 MG/DL code = 2072) ALBUMIN, URINE, RANDOM (test code 45.7 MG/DL = 27841) CALC ALBUMIN/CREAT, RND (test 267 MG/G code = 61143) VITAMIN D, 25 [id number] 00:00:00 Test Item Value Reference Range Interpretation Comments VITAMIN D, 25 OH (test code = 4958) 9 NG/ML VITAMIN D, 25 [id number] 00:00:00 Test Item Value Reference Range Interpretation Comments VITAMIN D, 25 OH (test code = 4958) 9 NG/ML LIPID [id number] 22:05:35 Test Item Value Reference Range Interpretation [...] MOREINFORMATION , SEE CLIENT ANNOUNCE MENT AT [email or web address] CalcLDL-C RISK RATIO LDL/HDL (NOTE) RATIO <3.22 UNABLE T O CALCULATE (test code = 2238) COMPREHENSIVE METABOLIC [id number] 22:05:35 Test Item Value Reference Range Interpretation Comments GLUCOSE (test code = 240 MG/DL 70-99 H 2216) BUN (test code = 9 MG/DL 6-20 2207) CREATININE (test 0.47 MG/DL 0.60-1.30 L code = 2214) eGFR (2020 CKD-EPI) 118 >60 (test code = 69006) ML/MIN/1.73 CALC BUN/CREAT (test 19 RATIO 6-28 code = 2235) SODIUM (test code = 134 MEQ/L 067-968 4747) POTASSIUM (test code 4.4 MEQ/L 3.5-5.4 = [...] = 49 U/L 5-40 H 2218) IRON, [id number] 22:05:35 Test Item Value Reference Range Interpretation Comments IRON, SERUM (test 91 UG/DL 37-145 UNLESS OT HERWISE code = 222) INDICATED, ALL TESTING PERFORMED [facility]. [address] [place] [address] DIRECTOR: MARLENE GONZALEZ M.D. CLIA NUMBER [id number] CAP ACCREDITATION N O. [id number] VITAMIN [id number] 05:31:10 Test Item Value Reference Range Interpretation Comments VITAMIN B-12 (test code = 2840) >2000 PG/ML 200-950 H COMPREHENSIVE METABOLIC [id number] 00:00:00 Test Item Value Reference Range Interpretation Comments GLUCOSE (test code = 2217) 240 MG/DL BUN (test code = 2208) 9 MG/DL CREATININE (test code = 2214) 0.47 MG/DL eGFR (2020 CKD-EPI) (test 118 ML/MIN/1.73 code = 33917) CALC BUN/CREAT (test code = 19 RATIO [...] (test code = 2219) 49 U/L VITAMIN [id number] 00:00:00 Test Item Value Reference Range Interpretation Comments VITAMIN B-12 (test code = 2840) >2000 PG/ML VITAMIN [id number] 00:00:00 Test Item Value Reference Range Interpretation Comments VITAMIN B-12 (test code = 2840) >2000 PG/ML IRON, [id number] 00:00:00 Test Item Value Reference Range Interpretation Comments IRON, SERUM (test code = 2222) 91 UG/DL LIPID [id number] 00:00:00 Test Item Value Reference Range Interpretation Comments CHOLESTEROL (test code = 2210) 814 MG/DL TRIGLYCERIDES (test code = 2232) 549 MG/DL HDL CHOLESTEROL (test code = 20 MG/DL 2220) CALC LDL CHOL (test code = 2237) (NOTE) MG/DL RISK RATIO LDL/HDL (test code = (NOTE) RATIO 2238) LIPID [id number] 00:00:00 Test Item Value Reference Range Interpretation Comments CHOLESTEROL (test code = 2210) 814 MG/DL TRIGLYCERIDES (test code = 2232) 549 MG/DL HDL CHOLESTEROL (test code = 20 MG/DL 2220) CALC LDL CHOL (test code = 2237) (NOTE) MG/DL RISK RATIO LDL/HDL (test code = (NOTE) RATIO 2238) COMPREHENSIVE METABOLIC [id number] 00:00:00 Test Item Value Reference Range Interpretation Comments GLUCOSE (test code = 2217) 240 MG/DL BUN (test code = 2208) 9 MG/DL CREATININE (test code = 2214) 0.47 MG/DL eGFR (2020 CKD-EPI) (test 118 ML/MIN/1.73 code = 94419) CALC BUN/CREAT (test code = 19 RATIO [...] code = 2219) 49 U/L COMPREHENSIVE METABOLIC [id number] 00:00:00 Test Item Value Reference Range Interpretation Comments GLUCOSE (test code = 2217) 240 MG/DL BUN (test code = 2208) 9 MG/DL CREATININE (test code = 2214) 0.47 MG/DL eGFR (2020 CKD-EPI) (test 118 ML/MIN/1.73 code = 42014) CALC BUN/CREAT (test code = 19 RATIO [...] (test code = 2219) 49 U/L VITAMIN [id number] 00:00:00 Test Item Value Reference Range Interpretation Comments VITAMIN B-12 (test code = 2840) >2000 PG/ML VITAMIN [id number] 00:00:00 Test Item Value Reference Range Interpretation Comments VITAMIN B-12 (test code = 2840) >2000 PG/ML VITAMIN [id number] 00:00:00 Test Item Value Reference Range Interpretation Comments VITAMIN B-12 (test code = 2840) >2000 PG/ML IRON, [id number] 00:00:00 Test Item Value Reference Range Interpretation Comments IRON, SERUM (test code = 2222) 91 UG/DL IRON, [id number] 00:00:00 Test Item Value Reference Range Interpretation Comments IRON, SERUM (test code = 2222) 91 UG/DL LIPID [id number] 00:00:00 Test Item Value Reference Range Interpretation Comments CHOLESTEROL (test code = 2210) 814 MG/DL TRIGLYCERIDES (test code = 2232) 549 MG/DL HDL CHOLESTEROL (test code = 20 MG/DL 2220) CALC LDL CHOL (test code = 2237) (NOTE) MG/DL RISK RATIO LDL/HDL (test code = (NOTE) RATIO 2238) LIPID [id number] 00:00:00 Test Item Value Reference Range Interpretation Comments CHOLESTEROL (test code = 2210) 814 MG/DL TRIGLYCERIDES (test code = 2232) 549 MG/DL HDL CHOLESTEROL (test code = 20 MG/DL 2220) CALC LDL CHOL (test code = 2237) (NOTE) MG/DL RISK RATIO LDL/HDL (test code = (NOTE) RATIO 2238) COMPREHENSIVE METABOLIC [id number] 00:00:00 Test Item Value Reference Range Interpretation Comments GLUCOSE (test code = 2217) 240 MG/DL BUN (test code = 2208) 9 MG/DL CREATININE (test code = 2214) 0.47 MG/DL eGFR (2020 CKD-EPI) (test 118 ML/MIN/1.73 code = 43850) CALC BUN/CREAT (test code = 19 RATIO [...] code = 2219) 49 U/L COMPREHENSIVE METABOLIC [id number] 00:00:00 Test Item Value Reference Range Interpretation Comments GLUCOSE (test code = 2217) 240 MG/DL BUN (test code = 2208) 9 MG/DL CREATININE (test code = 2214) 0.47 MG/DL eGFR (2020 CKD-EPI) (test 118 ML/MIN/1.73 code = 47011) CALC BUN/CREAT (test code = 19 RATIO [...] (test code = 2219) 49 U/L VITAMIN [id number] 00:00:00 Test Item Value Reference Range Interpretation Comments VITAMIN B-12 (test code = 2840) >2000 PG/ML VITAMIN [id number] 00:00:00 Test Item Value Reference Range Interpretation Comments VITAMIN B-12 (test code = 2840) >2000 PG/ML VITAMIN [id number] 00:00:00 Test Item Value Reference Range Interpretation Comments VITAMIN B-12 (test code = 2840) >2000 PG/ML IRON, [id number] 00:00:00 Test Item Value Reference Range Interpretation Comments IRON, SERUM (test code = 2222) 91 UG/DL IRON, [id number] 00:00:00 Test Item Value Reference Range Interpretation Comments IRON, SERUM (test code = 2222) 91 UG/DL LIPID [id number] 00:00:00 Test Item Value Reference Range Interpretation Comments CHOLESTEROL (test code = 2210) 814 MG/DL TRIGLYCERIDES (test code = 2232) 549 MG/DL HDL CHOLESTEROL (test code = 20 MG/DL 2220) CALC LDL CHOL (test code = 2237) (NOTE) MG/DL RISK RATIO LDL/HDL (test code = (NOTE) RATIO 2238) CBC W/AUTO DIFF WITH [id number] 03:36:44 Test Item Value Reference Range Interpretation [...] RBCS 0.02 K/UL 0.00-0.11 (test code = 46556) HEMOGLOBIN [id number] 03:25:41 Test Item Value Reference Range Interpretation Comments HEMOGLOBIN A1c (test 8.7 % 4.2-5.6 H [employer] AN DIABETES code = 59475) ASSOCIATION IDELIN[employer] FOR HGB A1C: PREDIABETES/INC REASED [...] ATE TESTING OR LABORATORY C ONSULTATION. HEMOGLOBIN [id number] 00:00:00 Test Item Value Reference Range Interpretation Comments HEMOGLOBIN A1c (test code = 06286) 8.7 % HEMOGLOBIN [id number] 00:00:00 Test Item Value Reference Range Interpretation Comments HEMOGLOBIN A1c (test code = 91863) 8.7 % CBC W/AUTO [id number] 00:00:00 Test Item Value Reference Range Interpretation [...] NUCLEATED RBCS (test code = 0.02 K/UL 10159) CBC W/AUTO [id number] 00:00:00 Test Item Value Reference Range Interpretation [...] NUCLEATED RBCS (test code = 0.02 K/UL 54971) HEMOGLOBIN [id number] 00:00:00 Test Item Value Reference Range Interpretation Comments HEMOGLOBIN A1c (test code = 64301) 8.7 % HEMOGLOBIN [id number] 00:00:00 Test Item Value Reference Range Interpretation Comments HEMOGLOBIN A1c (test code = 32223) 8.7 % HEMOGLOBIN [id number] 00:00:00 Test Item Value Reference Range Interpretation Comments HEMOGLOBIN A1c (test code = 53015) 8.7 % CBC W/AUTO [id number] 00:00:00 Test Item Value Reference Range Interpretation [...] NUCLEATED RBCS (test code = 0.02 K/UL 72989) CBC W/AUTO [id number] 00:00:00 Test Item Value Reference Range Interpretation [...] NUCLEATED RBCS (test code = 0.02 K/UL 01946) CBC W/AUTO [id number] 00:00:00 Test Item Value Reference Range Interpretation [...] NUCLEATED RBCS (test code = 0.02 K/UL 18084) HEMOGLOBIN [id number] 00:00:00 Test Item Value Reference Range Interpretation Comments HEMOGLOBIN A1c (test code = 32242) 8.7 % HEMOGLOBIN [id number] 00:00:00 Test Item Value Reference Range Interpretation Comments HEMOGLOBIN A1c (test code = 06660) 8.7 % HEMOGLOBIN [id number] 00:00:00 Test Item Value Reference Range Interpretation Comments HEMOGLOBIN A1c (test code = 50098) 8.7 % CBC W/AUTO [id number] 00:00:00 Test Item Value Reference Range Interpretation [...] NUCLEATED RBCS (test code = 0.02 K/UL 32933) CBC W/AUTO [id number] 00:00:00 Test Item Value Reference Range Interpretation [...] NUCLEATED RBCS (test code = 0.02 K/UL 74327) CBC W/AUTO [id number] 00:00:00 Test Item Value Reference Range Interpretation [...] NUCLEATED RBCS (test code = 0.02 K/UL 41899) [id number] 04:11:20 Test Item Value Reference Range Interpretation Comments LIPASE (test code = 2057) 18 U/L 13-60 [id number] 04:11:20 Test Item Value Reference Range Interpretation Comments AMYLASE (test code = 41 U/L 28-100 UNLESS OTHERWISE 2205) INDICATED, ALL TESTING PERFORMED [facility] PATHOLOGY [facility], [facility]. [address] [place] [address] DIRECTOR: MARLENE GONZALEZ M.D. CLIA NUMBER [id number] [facility] ACCREDITATION N O. [id number] 00:00:00 Test Item Value Reference Range Interpretation Comments AMYLASE (test code = 2205) 41 U/L [id number] 00:00:00 Test Item Value Reference Range Interpretation Comments LIPASE (test code = 2057) 18 U/L [id number] 00:00:00 Test Item Value Reference Range Interpretation Comments LIPASE (test code = 2057) 18 U/L [id number] 00:00:00 Test Item Value Reference Range Interpretation Comments LIPASE (test code = 2057) 18 U/L [id number] 00:00:00 Test Item Value Reference Range Interpretation Comments AMYLASE (test code = 2205) 41 U/L [id number] 00:00:00 Test Item Value Reference Range Interpretation Comments AMYLASE (test code = 2204) 41 U/L [id number] 00:00:00 Test Item Value Reference Range Interpretation Comments LIPASE (test code = 2057) 18 U/L [id number] 00:00:00 Test Item Value Reference Range Interpretation Comments LIPASE (test code = 2057) 18 U/L [id number] 00:00:00 Test Item Value Reference Range Interpretation Comments LIPASE (test code = 2057) 18 U/L [id number] 00:00:00 Test Item Value Reference Range Interpretation Comments AMYLASE (test code = 2204) 41 U/L [id number] 00:00:00 Test Item Value Reference Range Interpretation Comments AMYLASE (test code = 2204) 41 U/L [id number] 00:00:00 Test Item Value Reference Range Interpretation Comments LIPASE (test code = 2057) 18 U/L [id number] 00:00:00 Test Item Value Reference Range Interpretation Comments LIPASE (test code = 2057) 18 U/L HEMOGLOBIN [id number] 05:11:03 Test Item Value Reference Range Interpretation Comments HEMOGLOBIN A1c (test 8.2 % 4.2-5.6 H [employer]AB[employer]ES code = 82446) ASSOCIATION IDELINES FOR HGB A1C: PREDIABETES/INC REASED [...] TESTING OR LABORATORY C ONSULTATION. COMPREHENSIVE METABOLIC [id number] 04:59:22 Test Item Value Reference Range Interpretation Comments GLUCOSE (test code = 216 MG/DL 70-99 H 2216) BUN (test code = 7 MG/DL -20 2207) CREATININE (test 0.35 MG/DL 0.60-1.30 L code = 2214) eGFR (2020 CKD-EPI) 127 >60 (test code = 53324) ML/MIN/1.73 CALC BUN/CREAT (test 20 RATIO 6-28 code = 2235) SODIUM (test code = 134 MEQ/L 777-627 1191) POTASSIUM (test code 4.0 MEQ/L 3.5-5.4 = 222) CHLORIDE (test code 100 MEQ/L 95-107 = 2215) CARBON DIOXIDE (test 21 MEQ/L 19-31 code = 2206) CALCIUM (test code = 8.8 MG/DL 8.5-10.5 2208) PROTEIN, TOTAL (test 6.5 G/DL 6.1-8.3 code = 222) ALBUMIN (test code = 3.7 G/DL 3.5-5.2 2200) CALC GLOBULIN (test 2.8 G/DL 1.9-3.7 code = 224) CALC A/G RATIO (test 1.3 RATIO 1.0-2.6 code = 2234) BILIRUBIN, TOTAL <0.2 MG/DL See_Comment [Automated message] (test code = 220) The syste [employer] which generated this result transmit [place] reference range : <=1.2. The refe rence range was not u sed to interpret th is result as normal/abnormal . ALKALINE PHOSPHATASE 111 U/L 40-120 (test code = 220) AST (test code = 23 U/L 9-40 2217) ALT (test code = <5 U/L 5-40 L 2218) LIPID [id number] 04:59:22 Test Item Value Reference Range Interpretation [...] MOREINFORMATION , SEE CLIENT ANNOUNCE MENT AT [email or web address] CalcLDL-C RISK RATIO LDL/HDL 7.20 RATIO <3.22 H UNABLE T O CALCULATE (test code = 2238) UNLESS OT HERWISE INDICATED, ALL TESTING PERFORMED [facility] PATHOLOGY [facility] [employer]. [address] [place] [address] 6820 4 LABORATORY DIRE CTOR: MARLENE STEVENS M.D. CLIA NUMBER [id number] [facility]/AUTO DIFF WITH [id number] 04:14:18 Test Item Value Reference Range Interpretation [...] RBCS 0.00 K/UL 0.00-0.11 (test code = 63274) COMPREHENSIVE METABOLIC [id number] 00:00:00 Test Item Value Reference Range Interpretation Comments GLUCOSE (test code = 2217) 216 MG/DL BUN (test code = 2208) 7 MG/DL CREATININE (test code = 2214) 0.35 MG/DL eGFR (2020 CKD-EPI) (test 127 ML/MIN/1.73 code = 38777) CALC BUN/CREAT (test code = 20 RATIO [...] (test code = 2219) <5 U/L HEMOGLOBIN [id number] 00:00:00 Test Item Value Reference Range Interpretation Comments HEMOGLOBIN A1c (test code = 33511) 8.2 % HEMOGLOBIN [id number] 00:00:00 Test Item Value Reference Range Interpretation Comments HEMOGLOBIN A1c (test code = 62018) 8.2 % LIPID [id number] 00:00:00 Test Item Value Reference Range Interpretation Comments CHOLESTEROL (test code = 2210) 539 MG/DL TRIGLYCERIDES (test code = 2232) 2237 MG/DL HDL CHOLESTEROL (test code = 25 MG/DL 2219) CALC LDL CHOL (test code = 2237) (NOTE) MG/DL RISK RATIO LDL/HDL (test code = 7.20 RATIO 2238) CBC W/AUTO [id number] 00:00:00 Test Item Value Reference Range Interpretation [...] NUCLEATED RBCS (test code = 0.00 K/UL 41746) CBC W/AUTO [id number] 00:00:00 Test Item Value Reference Range Interpretation [...] NUCLEATED RBCS (test code = 0.00 K/UL 93790) CBC W/AUTO [id number] 00:00:00 Test Item Value Reference Range Interpretation [...] NUCLEATED RBCS (test code = 0.00 K/UL 82466) COMPREHENSIVE METABOLIC [id number] 00:00:00 Test Item Value Reference Range Interpretation Comments GLUCOSE (test code = 2217) 216 MG/DL BUN (test code = 2208) 7 MG/DL CREATININE (test code = 2214) 0.35 MG/DL eGFR (2020 CKD-EPI) (test 127 ML/MIN/1.73 code = 39361) CALC BUN/CREAT (test code = 20 RATIO [...] code = 2219) <5 U/L COMPREHENSIVE METABOLIC [id number] 00:00:00 Test Item Value Reference Range Interpretation Comments GLUCOSE (test code = 2217) 216 MG/DL BUN (test code = 2208) 7 MG/DL CREATININE (test code = 2214) 0.35 MG/DL eGFR (2020 CKD-EPI) (test 127 ML/MIN/1.73 code = 36960) CALC BUN/CREAT (test code = 20 RATIO [...] (test code = 2219) <5 U/L HEMOGLOBIN [id number] 00:00:00 Test Item Value Reference Range Interpretation Comments HEMOGLOBIN A1c (test code = 19733) 8.2 % HEMOGLOBIN [id number] 00:00:00 Test Item Value Reference Range Interpretation Comments HEMOGLOBIN A1c (test code = 03539) 8.2 % HEMOGLOBIN [id number] 00:00:00 Test Item Value Reference Range Interpretation Comments HEMOGLOBIN A1c (test code = 00626) 8.2 % LIPID [id number] 00:00:00 Test Item Value Reference Range Interpretation Comments CHOLESTEROL (test code = 2210) 539 MG/DL TRIGLYCERIDES (test code = 2232) 2237 MG/DL HDL CHOLESTEROL (test code = 25 MG/DL 2220) CALC LDL CHOL (test code = 2237) (NOTE) MG/DL RISK RATIO LDL/HDL (test code = 7.20 RATIO 2238) LIPID [id number] 00:00:00 Test Item Value Reference Range Interpretation Comments CHOLESTEROL (test code = 2210) 539 MG/DL TRIGLYCERIDES (test code = 2232) 2237 MG/DL HDL CHOLESTEROL (test code = 25 MG/DL 2220) CALC LDL CHOL (test code = 2237) (NOTE) MG/DL RISK RATIO LDL/HDL (test code = 7.20 RATIO 2238) CBC W/AUTO [id number] 00:00:00 Test Item Value Reference Range Interpretation [...] NUCLEATED RBCS (test code = 0.00 K/UL 87147) CBC W/AUTO [id number] 00:00:00 Test Item Value Reference Range Interpretation [...] NUCLEATED RBCS (test code = 0.00 K/UL 32476) CBC W/AUTO [id number] 00:00:00 Test Item Value Reference Range Interpretation [...] NUCLEATED RBCS (test code = 0.00 K/UL 43033) COMPREHENSIVE METABOLIC [id number] 00:00:00 Test Item Value Reference Range Interpretation Comments GLUCOSE (test code = 2217) 216 MG/DL BUN (test code = 2208) 7 MG/DL CREATININE (test code = 2214) 0.35 MG/DL eGFR (2020 CKD-EPI) (test 127 ML/MIN/1.73 code = 30310) CALC BUN/CREAT (test code = 20 RATIO [...] code = 2219) <5 U/L COMPREHENSIVE METABOLIC [id number] 00:00:00 Test Item Value Reference Range Interpretation Comments GLUCOSE (test code = 2217) 216 MG/DL BUN (test code = 2208) 7 MG/DL CREATININE (test code = 2214) 0.35 MG/DL eGFR (2020 CKD-EPI) (test 127 ML/MIN/1.73 code = 51186) CALC BUN/CREAT (test code = 20 RATIO 2235) SODIUM (test code = 2231) 134 MEQ/L POTASSIUM (test code = 2228) 4.0 MEQ/L CHLORIDE (test code = 2215) 100 MEQ/L CARBON DIOXIDE (test code = 21 MEQ/L 6) CALCIUM (test code = 2209) 8.8 MG/DL [...] (test code = 2219) <5 U/L HEMOGLOBIN [id number] 00:00:00 Test Item Value Reference Range Interpretation Comments HEMOGLOBIN A1c (test code = 03438) 8.2 % HEMOGLOBIN [id number] 00:00:00 Test Item Value Reference Range Interpretation Comments HEMOGLOBIN A1c (test code = 92082) 8.2 % HEMOGLOBIN [id number] 00:00:00 Test Item Value Reference Range Interpretation Comments HEMOGLOBIN A1c (test code = 39606) 8.2 % LIPID [id number] 00:00:00 Test Item Value Reference Range Interpretation Comments CHOLESTEROL (test code = 2210) 539 MG/DL TRIGLYCERIDES (test code = 2232) 2237 MG/DL HDL CHOLESTEROL (test code = 25 MG/DL 2220) CALC LDL CHOL (test code = 2237) (NOTE) MG/DL RISK RATIO LDL/HDL (test code = 7.20 RATIO 2238) LIPID [id number] 00:00:00 Test Item Value Reference Range Interpretation Comments CHOLESTEROL (test code = 2210) 539 MG/DL TRIGLYCERIDES (test code = 2232) 2237 MG/DL HDL CHOLESTEROL (test code = 25 MG/DL 2220) CALC LDL CHOL (test code = 2237) (NOTE) MG/DL RISK RATIO LDL/HDL (test code = 7.20 RATIO 2238) CBC W/AUTO [id number] 00:00:00 Test Item Value Reference Range Interpretation [...] NUCLEATED RBCS (test code = 0.00 K/UL 28970) CBC W/AUTO [id number] 00:00:00 Test Item Value Reference Range Interpretation [...] NUCLEATED RBCS (test code = 0.00 K/UL 41651) [id number] 00:00:00 Test Item Value Reference Range Interpretation Comments LIPASE (test code = 2057) 14 U/L [id number] 00:00:00 Test Item Value Reference Range Interpretation Comments LIPASE (test code = 2057) 14 U/L [id number] 00:00:00 Test Item Value Reference Range Interpretation Comments AMYLASE (test code = 2205) 44 U/L [id number] 00:00:00 Test Item Value Reference Range Interpretation Comments AMYLASE (test code = 2204) 44 U/L [id number] 00:00:00 Test Item Value Reference Range Interpretation Comments LIPASE (test code = 2057) 14 U/L [id number] 00:00:00 Test Item Value Reference Range Interpretation Comments LIPASE (test code = 2057) 14 U/L [id number] 00:00:00 Test Item Value Reference Range Interpretation Comments LIPASE (test code = 2057) 14 U/L [id number] 00:00:00 Test Item Value Reference Range Interpretation Comments AMYLASE (test code = 5) 44 U/L [id number] 00:00:00 Test Item Value Reference Range Interpretation Comments AMYLASE (test code = 5) 44 U/L [id number] 00:00:00 Test Item Value Reference Range Interpretation Comments LIPASE (test code = 2057) 14 U/L [id number] 00:00:00 Test Item Value Reference Range Interpretation Comments LIPASE (test code = 2057) 14 U/L [id number] 00:00:00 Test Item Value Reference Range Interpretation Comments LIPASE (test code = 2057) 14 U/L [id number] 00:00:00 Test Item Value Reference Range Interpretation Comments AMYLASE (test code = 2205) 44 U/L LIPID [id number] 00:00:00 Test Item Value Reference Range Interpretation Comments CHOLESTEROL (test code = 2210) 346 MG/DL TRIGLYCERIDES (test code = 2232) 1167 MG/DL HDL CHOLESTEROL (test code = 37 MG/DL 2220) CALC LDL CHOL (test code = 2237) (NOTE) MG/DL RISK RATIO LDL/HDL (test code = (NOTE) RATIO 2238) COMPREHENSIVE METABOLIC [id number] 00:00:00 Test Item Value Reference Range Interpretation Comments GLUCOSE (test code = 2217) 127 MG/DL BUN (test code = 2208) 7 MG/DL CREATININE (test code = 2214) 0.53 MG/DL eGFR AMER. (test code 132 ML/MIN/1.73 = 35701) eGFR NON- AMER. (test 114 ML/MIN/1.73 code = 19686) CALC BUN/CREAT (test code = 13 RATIO [...] (test code = 2219) 12 U/L LIPID [id number] 00:00:00 Test Item Value Reference Range Interpretation Comments CHOLESTEROL (test code = 2210) 346 MG/DL TRIGLYCERIDES (test code = 2232) 1167 MG/DL HDL CHOLESTEROL (test code = 37 MG/DL 2220) CALC LDL CHOL (test code = 2237) (NOTE) MG/DL RISK RATIO LDL/HDL (test code = (NOTE) RATIO 2238) LIPID [id number] 00:00:00 Test Item Value Reference Range Interpretation Comments CHOLESTEROL (test code = 2210) 346 MG/DL TRIGLYCERIDES (test code = 2232) 1167 MG/DL HDL CHOLESTEROL (test code = 37 MG/DL 2220) CALC LDL CHOL (test code = 2237) (NOTE) MG/DL RISK RATIO LDL/HDL (test code = (NOTE) RATIO 2238) COMPREHENSIVE METABOLIC [id number] 00:00:00 Test Item Value Reference Range Interpretation Comments GLUCOSE (test code = 2217) 127 MG/DL BUN (test code = 2208) 7 MG/DL CREATININE (test code = 2214) 0.53 MG/DL eGFR AMER. (test code 132 ML/MIN/1.73 = 90475) eGFR NON- AMER. (test 114 ML/MIN/1.73 code = 94096) CALC BUN/CREAT (test code = 13 RATIO [...] code = 2219) 12 U/L COMPREHENSIVE METABOLIC [id number] 00:00:00 Test Item Value Reference Range Interpretation Comments GLUCOSE (test code = 2217) 127 MG/DL BUN (test code = 2208) 7 MG/DL CREATININE (test code = 2214) 0.53 MG/DL eGFR AMER. (test code 132 ML/MIN/1.73 = 70573) eGFR NON- AMER. (test 114 ML/MIN/1.73 code = 79618) CALC BUN/CREAT (test code = 13 RATIO [...] (test code = 2219) 12 U/L LIPID [id number] 00:00:00 Test Item Value Reference Range Interpretation Comments CHOLESTEROL (test code = 2210) 346 MG/DL TRIGLYCERIDES (test code = 2232) 1167 MG/DL HDL CHOLESTEROL (test code = 37 MG/DL 2220) CALC LDL CHOL (test code = 2237) (NOTE) MG/DL RISK RATIO LDL/HDL (test code = (NOTE) RATIO 2238) LIPID [id number] 00:00:00 Test Item Value Reference Range Interpretation Comments CHOLESTEROL (test code = 2210) 346 MG/DL TRIGLYCERIDES (test code = 2232) 1167 MG/DL HDL CHOLESTEROL (test code = 37 MG/DL 2220) CALC LDL CHOL (test code = 2237) (NOTE) MG/DL RISK RATIO LDL/HDL (test code = (NOTE) RATIO 2238) COMPREHENSIVE METABOLIC [id number] 00:00:00 Test Item Value Reference Range Interpretation Comments GLUCOSE (test code = 2217) 127 MG/DL BUN (test code = 2208) 7 MG/DL CREATININE (test code = 2214) 0.53 MG/DL eGFR AMER. (test code 132 ML/MIN/1.73 = 82930) eGFR NON- AMER. (test 114 ML/MIN/1.73 code = 98397) CALC BUN/CREAT (test code = 13 RATIO 2235) SODIUM (test code = 2231) 143 MEQ/L POTASSIUM (test code = 2228) 4.8 MEQ/L CHLORIDE (test code = 2215) 103 MEQ/L CARBON DIOXIDE (test code = 24 MEQ/L 6) CALCIUM (test code = 2209) 9.6 MG/DL [...] code = 2219) 12 U/L COMPREHENSIVE METABOLIC [id number] 00:00:00 Test Item Value Reference Range Interpretation Comments GLUCOSE (test code = 2217) 127 MG/DL BUN (test code = 2208) 7 MG/DL CREATININE (test code = 2214) 0.53 MG/DL eGFR AMER. (test code 132 ML/MIN/1.73 = 38658) eGFR NON- AMER. (test 114 ML/MIN/1.73 code = 33123) CALC BUN/CREAT (test code = 13 RATIO [...] (test code = 2219) 12 U/L HEMOGLOBIN [id number] 00:00:00 Test Item Value Reference Range Interpretation Comments HEMOGLOBIN A1c (test code = 15760) 7.8 % HEMOGLOBIN [id number] 00:00:00 Test Item Value Reference Range Interpretation Comments HEMOGLOBIN A1c (test code = 73573) 7.8 % HEMOGLOBIN [id number] 00:00:00 Test Item Value Reference Range Interpretation Comments HEMOGLOBIN A1c (test code = 00667) 7.8 % HEMOGLOBIN [id number] 00:00:00 Test Item Value Reference Range Interpretation Comments HEMOGLOBIN A1c (test code = 27876) 7.8 % HEMOGLOBIN [id number] 00:00:00 Test Item Value Reference Range Interpretation Comments HEMOGLOBIN A1c (test code = 45654) 7.8 % HEMOGLOBIN [id number] 00:00:00 Test Item Value Reference Range Interpretation Comments HEMOGLOBIN A1c (test code = 25547) 7.8 % HEMOGLOBIN [id number] 00:00:00 Test Item Value Reference Range Interpretation Comments HEMOGLOBIN A1c (test code = 64153) 7.8 % HEMOGLOBIN [id number] 00:00:00 Test Item Value Reference Range Interpretation Comments HEMOGLOBIN A1c (test code = 46490) 7.8 % CBC W/AUTO [id number] 00:00:00 Test Item Value Reference Range Interpretation [...] code = 1015) 270 K/UL CBC W/AUTO [id number] 00:00:00 Test Item Value Reference Range Interpretation [...] (test code = 1015) 270 K/UL HEMOGLOBIN [id number] 00:00:00 Test Item Value Reference Range Interpretation Comments HEMOGLOBIN A1c (test code = 14697) 8.8 % HEMOGLOBIN [id number] 00:00:00 Test Item Value Reference Range Interpretation Comments HEMOGLOBIN A1c (test code = 38091) 8.8 % COMPREHENSIVE METABOLIC [id number] 00:00:00 Test Item Value Reference Range Interpretation Comments GLUCOSE (test code = 2217) 236 MG/DL BUN (test code = 2208) 9 MG/DL CREATININE (test code = 2214) 0.47 MG/DL eGFR AMER. (test code 137 ML/MIN/1.73 = 63815) eGFR NON- AMER. (test 118 ML/MIN/1.73 code = 54455) CALC BUN/CREAT (test code = 19 RATIO [...] RATIO 223) BILIRUBIN, TOTAL (test code = <0.2 MG/DL 2206) ALKALINE PHOSPHATASE (test 77 U/L code = 220) AST (test code = 2218) 26 U/L ALT (test code = 2219) <5 U/L [id number] 00:00:00 Test Item Value Reference Range Interpretation Comments TSH, THIRD GENERATION (test code 1.060 UIU/ML = 2821) [id number] 00:00:00 Test Item Value Reference Range Interpretation Comments TSH, THIRD GENERATION (test code 1.060 UIU/ML = 2821) MICROALBUMIN/CREATININE, RANDOM AND [id number] 00:00:00 Test Item Value Reference Range Interpretation Comments CREATININE, URINE, CONC. (test 83.5 MG/DL code = 2072) ALBUMIN, URINE, RANDOM (test code 3.0 MG/DL = 26397) CALC ALBUMIN/CREAT, RND (test code 36 MG/G = 00862) VITAMIN D, 25 [id number] 00:00:00 Test Item Value Reference Range Interpretation Comments VITAMIN D, 25 OH (test code = 4958) 12 NG/ML CBC W/AUTO [id number] 00:00:00 Test Item Value Reference Range Interpretation [...] code = 1015) 270 K/UL CBC W/AUTO [id number] 00:00:00 Test Item Value Reference Range Interpretation [...] code = 1015) 270 K/UL CBC W/AUTO [id number] 00:00:00 Test Item Value Reference Range Interpretation [...] (test code = 1015) 270 K/UL HEMOGLOBIN [id number] 00:00:00 Test Item Value Reference Range Interpretation Comments HEMOGLOBIN A1c (test code = 22169) 8.8 % HEMOGLOBIN [id number] 00:00:00 Test Item Value Reference Range Interpretation Comments HEMOGLOBIN A1c (test code = 04984) 8.8 % HEMOGLOBIN [id number] 00:00:00 Test Item Value Reference Range Interpretation Comments HEMOGLOBIN A1c (test code = 19678) 8.8 % COMPREHENSIVE METABOLIC [id number] 00:00:00 Test Item Value Reference Range Interpretation Comments GLUCOSE (test code = 2217) 236 MG/DL BUN (test code = 2208) 9 MG/DL CREATININE (test code = 2214) 0.47 MG/DL eGFR AMER. (test code 137 ML/MIN/1.73 = 34807) eGFR NON- AMER. (test 118 ML/MIN/1.73 code = 34856) CALC BUN/CREAT (test code = 19 RATIO [...] code = 2219) <5 U/L COMPREHENSIVE METABOLIC [id number] 00:00:00 Test Item Value Reference Range Interpretation Comments GLUCOSE (test code = 2217) 236 MG/DL BUN (test code = 2208) 9 MG/DL CREATININE (test code = 2214) 0.47 MG/DL eGFR AMER. (test code 137 ML/MIN/1.73 = 60314) eGFR NON- AMER. (test 118 ML/MIN/1.73 code = 06205) CALC BUN/CREAT (test code = 19 RATIO [...] ALT (test code = 2219) <5 U/L [id number] 00:00:00 Test Item Value Reference Range Interpretation Comments TSH, THIRD GENERATION (test code 1.060 UIU/ML = 2821) [id number] 00:00:00 Test Item Value Reference Range Interpretation Comments TSH, THIRD GENERATION (test code 1.060 UIU/ML = 2821) [id number] 00:00:00 Test Item Value Reference Range Interpretation Comments TSH, THIRD GENERATION (test code 1.060 UIU/ML = 2821) MICROALBUMIN/CREATININE, RANDOM AND [id number] 00:00:00 Test Item Value Reference Range Interpretation Comments CREATININE, URINE, CONC. (test 83.5 MG/DL code = 2072) ALBUMIN, URINE, RANDOM (test code 3.0 MG/DL = 25108) CALC ALBUMIN/CREAT, RND (test code 36 MG/G = 05243) MICROALBUMIN/CREATININE, RANDOM AND [id number] 00:00:00 Test Item Value Reference Range Interpretation Comments CREATININE, URINE, CONC. (test 83.5 MG/DL code = 2072) ALBUMIN, URINE, RANDOM (test code 3.0 MG/DL = 14994) CALC ALBUMIN/CREAT, RND (test code 36 MG/G = 89224) VITAMIN D, 25 [id number] 00:00:00 Test Item Value Reference Range Interpretation Comments VITAMIN D, 25 OH (test code = 4958) 12 NG/ML VITAMIN D, 25 [id number] 00:00:00 Test Item Value Reference Range Interpretation Comments VITAMIN D, 25 OH (test code = 4958) 12 NG/ML CBC W/AUTO [id number] 00:00:00 Test Item Value Reference Range Interpretation [...] code = 1015) 270 K/UL CBC W/AUTO [id number] 00:00:00 Test Item Value Reference Range Interpretation [...] code = 1015) 270 K/UL CBC W/AUTO [id number] 00:00:00 Test Item Value Reference Range Interpretation [...] (test code = 1015) 270 K/UL HEMOGLOBIN [id number] 00:00:00 Test Item Value Reference Range Interpretation Comments HEMOGLOBIN A1c (test code = 92141) 8.8 % HEMOGLOBIN [id number] 00:00:00 Test Item Value Reference Range Interpretation Comments HEMOGLOBIN A1c (test code = 68188) 8.8 % HEMOGLOBIN [id number] 00:00:00 Test Item Value Reference Range Interpretation Comments HEMOGLOBIN A1c (test code = 79342) 8.8 % COMPREHENSIVE METABOLIC [id number] 00:00:00 Test Item Value Reference Range Interpretation Comments GLUCOSE (test code = 2217) 236 MG/DL BUN (test code = 2208) 9 MG/DL CREATININE (test code = 2214) 0.47 MG/DL eGFR AMER. (test code 137 ML/MIN/1.73 = 83298) eGFR NON- AMER. (test 118 ML/MIN/1.73 code = 55243) CALC BUN/CREAT (test code = 19 RATIO [...] code = 2219) <5 U/L COMPREHENSIVE METABOLIC [id number] 00:00:00 Test Item Value Reference Range Interpretation Comments GLUCOSE (test code = 2217) 236 MG/DL BUN (test code = 2208) 9 MG/DL CREATININE (test code = 2214) 0.47 MG/DL eGFR AMER. (test code 137 ML/MIN/1.73 = 08692) eGFR NON- AMER. (test 118 ML/MIN/1.73 code = 44545) CALC BUN/CREAT (test code = 19 RATIO [...] ALT (test code = 2219) <5 U/L [id number] 00:00:00 Test Item Value Reference Range Interpretation Comments TSH, THIRD GENERATION (test code 1.060 UIU/ML = 2821) [id number] 00:00:00 Test Item Value Reference Range Interpretation Comments TSH, THIRD GENERATION (test code 1.060 UIU/ML = 2821) [id number] 00:00:00 Test Item Value Reference Range Interpretation Comments TSH, THIRD GENERATION (test code 1.060 UIU/ML = 2821) MICROALBUMIN/CREATININE, RANDOM AND [id number] 00:00:00 Test Item Value Reference Range Interpretation Comments CREATININE, URINE, CONC. (test 83.5 MG/DL code = 2072) ALBUMIN, URINE, RANDOM (test code 3.0 MG/DL = 84460) CALC ALBUMIN/CREAT, RND (test code 36 MG/G = 17109) MICROALBUMIN/CREATININE, RANDOM AND [id number] 00:00:00 Test Item Value Reference Range Interpretation Comments CREATININE, URINE, CONC. (test 83.5 MG/DL code = 2072) ALBUMIN, URINE, RANDOM (test code 3.0 MG/DL = 99854) CALC ALBUMIN/CREAT, RND (test code 36 MG/G = 40429) VITAMIN D, 25 [id number] 00:00:00 Test Item Value Reference Range Interpretation Comments VITAMIN D, 25 OH (test code = 4958) 12 NG/ML VITAMIN D, 25 [id number] 00:00:00 Test Item Value Reference Range Interpretation Comments VITAMIN D, 25 OH (test code = 4958) 12 NG/ML SARS-CoV-2 (COVID-19) by RT-PCR (HIGH RISK)2020-03-24 00:00:00 Test Item Value Reference Range Interpretation Comments SARS-CoV-2 INTERPRETATION (test NEGATIVE code = 49821) SOURCE (test code = 06143) NOT SPECIFIED SARS-CoV-2 (COVID-19) by RT-PCR (HIGH RISK)2020-03-24 00:00:00 Test Item Value Reference Range Interpretation Comments SARS-CoV-2 INTERPRETATION (test NEGATIVE code = 93510) SOURCE (test code = 44673) NOT SPECIFIED SARS-CoV-2 (COVID-19) by RT-PCR (HIGH RISK)2020-03-24 00:00:00 Test Item Value Reference Range Interpretation Comments SARS-CoV-2 INTERPRETATION (test NEGATIVE code = 99830) SOURCE (test code = 26056) NOT SPECIFIED SARS-CoV-2 (COVID-19) by RT-PCR (HIGH RISK)2020-03-24 00:00:00 Test Item Value Reference Range Interpretation Comments SARS-CoV-2 INTERPRETATION (test NEGATIVE code = 90208) SOURCE (test code = 05892) NOT SPECIFIED SARS-CoV-2 (COVID-19) by RT-PCR (HIGH RISK)2020-03-24 00:00:00 Test Item Value Reference Range Interpretation Comments SARS-CoV-2 INTERPRETATION (test NEGATIVE code = 06909) SOURCE (test code = 34269) NOT SPECIFIED LIPID [id number] 00:00:00 Test Item Value Reference Range Interpretation Comments CHOLESTEROL (test code = 2210) 235 MG/DL TRIGLYCERIDES (test code = 2232) 420 MG/DL HDL CHOLESTEROL (test code = 42 MG/DL 2220) CALC LDL CHOL (test code = 2237) (NOTE) MG/DL RISK RATIO LDL/HDL (test code = (NOTE) RATIO 2238) LIPID [id number] 00:00:00 Test Item Value Reference Range Interpretation Comments CHOLESTEROL (test code = 2210) 235 MG/DL TRIGLYCERIDES (test code = 2232) 420 MG/DL HDL CHOLESTEROL (test code = 42 MG/DL 2220) CALC LDL CHOL (test code = 2237) (NOTE) MG/DL RISK RATIO LDL/HDL (test code = (NOTE) RATIO 2238) LIPID [id number] 00:00:00 Test Item Value Reference Range Interpretation Comments CHOLESTEROL (test code = 2210) 235 MG/DL TRIGLYCERIDES (test code = 2232) 420 MG/DL HDL CHOLESTEROL (test code = 42 MG/DL 2220) CALC LDL CHOL (test code = 2237) (NOTE) MG/DL RISK RATIO LDL/HDL (test code = (NOTE) RATIO 2238) LIPID [id number] 00:00:00 Test Item Value Reference Range Interpretation Comments CHOLESTEROL (test code = 2210) 235 MG/DL TRIGLYCERIDES (test code = 2232) 420 MG/DL HDL CHOLESTEROL (test code = 42 MG/DL 2220) CALC LDL CHOL (test code = 2237) (NOTE) MG/DL RISK RATIO LDL/HDL (test code = (NOTE) RATIO 2238) LIPID [id number] 00:00:00 Test Item Value Reference Range Interpretation Comments CHOLESTEROL (test code = 2210) 235 MG/DL TRIGLYCERIDES (test code = 2232) 420 MG/DL HDL CHOLESTEROL (test code = 42 MG/DL 2220) CALC LDL CHOL (test code = 2237) (NOTE) MG/DL RISK RATIO LDL/HDL (test code = (NOTE) RATIO 2238) LIPID [id number] 00:00:00 Test Item Value Reference Range Interpretation Comments CHOLESTEROL (test code = 2210) 500 MG/DL TRIGLYCERIDES (test code = 2232) 2793 MG/DL HDL CHOLESTEROL (test code = 25 MG/DL 2220) CALC LDL CHOL (test code = 2237) (NOTE) MG/DL RISK RATIO LDL/HDL (test code = (NOTE) RATIO 2238) COMPREHENSIVE METABOLIC [id number] 00:00:00 Test Item Value Reference Range Interpretation Comments GLUCOSE (test code = 2217) 287 MG/DL BUN (test code = 2208) 7 MG/DL CREATININE (test code = 2214) 0.57 MG/DL eGFR AMER. (test code 129 ML/MIN/1.73 = 25402) eGFR NON- AMER. (test 111 ML/MIN/1.73 code = 98521) CALC BUN/CREAT (test code = 12 RATIO [...] (test code = 2219) <5 U/L HEMOGLOBIN [id number] 00:00:00 Test Item Value Reference Range Interpretation Comments HEMOGLOBIN A1c (test code = 98197) 9.2 % HEMOGLOBIN [id number] 00:00:00 Test Item Value Reference Range Interpretation Comments HEMOGLOBIN A1c (test code = 54810) 9.2 % HEMOGLOBIN [id number] 00:00:00 Test Item Value Reference Range Interpretation Comments HEMOGLOBIN A1c (test code = 82581) 9.2 % LIPID [id number] 00:00:00 Test Item Value Reference Range Interpretation Comments CHOLESTEROL (test code = 2210) 500 MG/DL TRIGLYCERIDES (test code = 2232) 2793 MG/DL HDL CHOLESTEROL (test code = 25 MG/DL 2220) CALC LDL CHOL (test code = 2237) (NOTE) MG/DL RISK RATIO LDL/HDL (test code = (NOTE) RATIO 2238) LIPID [id number] 00:00:00 Test Item Value Reference Range Interpretation Comments CHOLESTEROL (test code = 2210) 500 MG/DL TRIGLYCERIDES (test code = 2232) 2793 MG/DL HDL CHOLESTEROL (test code = 25 MG/DL 2220) CALC LDL CHOL (test code = 2237) (NOTE) MG/DL RISK RATIO LDL/HDL (test code = (NOTE) RATIO 2238) COMPREHENSIVE METABOLIC [id number] 00:00:00 Test Item Value Reference Range Interpretation Comments GLUCOSE (test code = 2217) 287 MG/DL BUN (test code = 2208) 7 MG/DL CREATININE (test code = 2214) 0.57 MG/DL eGFR AMER. (test code 129 ML/MIN/1.73 = 33500) eGFR NON- AMER. (test 111 ML/MIN/1.73 code = 87927) CALC BUN/CREAT (test code = 12 RATIO [...] code = 2219) <5 U/L COMPREHENSIVE METABOLIC [id number] 00:00:00 Test Item Value Reference Range Interpretation Comments GLUCOSE (test code = 2217) 287 MG/DL BUN (test code = 2208) 7 MG/DL CREATININE (test code = 2214) 0.57 MG/DL eGFR AMER. (test code 129 ML/MIN/1.73 = 18273) eGFR NON- AMER. (test 111 ML/MIN/1.73 code = 46054) CALC BUN/CREAT (test code = 12 RATIO 2235) SODIUM (test code = 2231) 133 MEQ/L POTASSIUM (test code = 2228) 4.5 MEQ/L CHLORIDE (test code = 2215) 96 MEQ/L CARBON DIOXIDE (test code = 24 MEQ/L 2205) CALCIUM (test code = 2209) 10.0 MG/DL PROTEIN, TOTAL (test code = 7.5 G/DL 2228) ALBUMIN (test code = 220) 4.6 G/DL CALC GLOBULIN (test code = 2.9 G/DL 2239) CALC A/G RATIO (test code = 1.6 RATIO 2233) BILIRUBIN, TOTAL (test code = 0.4 MG/DL 2206) ALKALINE PHOSPHATASE (test 103 U/L code = 2204) AST (test code = 2218) 30 U/L ALT (test code = 2219) <5 U/L HEMOGLOBIN [id number] 00:00:00 Test Item Value Reference Range Interpretation Comments HEMOGLOBIN A1c (test code = 43836) 9.2 % HEMOGLOBIN [id number] 00:00:00 Test Item Value Reference Range Interpretation Comments HEMOGLOBIN A1c (test code = 74369) 9.2 % HEMOGLOBIN [id number] 00:00:00 Test Item Value Reference Range Interpretation Comments HEMOGLOBIN A1c (test code = 93023) 9.2 % LIPID [id number] 00:00:00 Test Item Value Reference Range Interpretation Comments CHOLESTEROL (test code = 2210) 500 MG/DL TRIGLYCERIDES (test code = 2232) 2793 MG/DL HDL CHOLESTEROL (test code = 25 MG/DL 2220) CALC LDL CHOL (test code = 2237) (NOTE) MG/DL RISK RATIO LDL/HDL (test code = (NOTE) RATIO 2238) LIPID [id number] 00:00:00 Test Item Value Reference Range Interpretation Comments CHOLESTEROL (test code = 2210) 500 MG/DL TRIGLYCERIDES (test code = 2232) 2793 MG/DL HDL CHOLESTEROL (test code = 25 MG/DL 2220) CALC LDL CHOL (test code = 2237) (NOTE) MG/DL RISK RATIO LDL/HDL (test code = (NOTE) RATIO 2238) COMPREHENSIVE METABOLIC [id number] 00:00:00 Test Item Value Reference Range Interpretation Comments GLUCOSE (test code = 2217) 287 MG/DL BUN (test code = 2208) 7 MG/DL CREATININE (test code = 2214) 0.57 MG/DL eGFR AMER. (test code 129 ML/MIN/1.73 = 38786) eGFR NON- AMER. (test 111 ML/MIN/1.73 code = 80417) CALC BUN/CREAT (test code = 12 RATIO [...] code = 2219) <5 U/L COMPREHENSIVE METABOLIC [id number] 00:00:00 Test Item Value Reference Range Interpretation Comments GLUCOSE (test code = 2217) 287 MG/DL BUN (test code = 2208) 7 MG/DL CREATININE (test code = 2214) 0.57 MG/DL eGFR AMER. (test code 129 ML/MIN/1.73 = 59583) eGFR NON- AMER. (test 111 ML/MIN/1.73 code = 90666) CALC BUN/CREAT (test code = 12 RATIO [...] (test code = 2219) <5 U/L HEMOGLOBIN [id number] 00:00:00 Test Item Value Reference Range Interpretation Comments HEMOGLOBIN A1c (test code = 47145) 9.2 % HEMOGLOBIN [id number] 00:00:00 Test Item Value Reference Range Interpretation Comments HEMOGLOBIN A1c (test code = 06852) 9.2 % SARS-CoV-2 (COVID-19) by RT-PCR (HIGH RISK)2019-12-14 00:00:00 Test Item Value Reference Range Interpretation Comments SARS-CoV-2 INTERPRETATION Positive (test code = 79119) SOURCE (test code = 33063) NASOPHARYNGEAL_SWAB _IN_VTM__UTM SARS-CoV-2 (COVID-19) by RT-PCR (HIGH RISK)2019-12-14 00:00:00 Test Item Value Reference Range Interpretation Comments SARS-CoV-2 INTERPRETATION Positive (test code = 80246) SOURCE (test code = 66113) NASOPHARYNGEAL_SWAB _IN_VTM__UTM SARS-CoV-2 (COVID-19) by RT-PCR (HIGH RISK)2019-12-14 00:00:00 Test Item Value Reference Range Interpretation Comments SARS-CoV-2 INTERPRETATION Positive (test code = 75317) SOURCE (test code = 71441) NASOPHARYNGEAL_SWAB _IN_VTM__UTM SARS-CoV-2 (COVID-19) by RT-PCR (HIGH RISK)2019-12-01 00:00:00 Test Item Value Reference Range Interpretation Comments SARS-CoV-2 INTERPRETATION Positive (test code = 21254) SOURCE (test code = 45165) Nasal_Swab_in_VTM__ UTM SARS-CoV-2 (COVID-19) by RT-PCR (HIGH RISK)2019-12-01 00:00:00 Test Item Value Reference Range Interpretation Comments SARS-CoV-2 INTERPRETATION Positive (test code = 06069) SOURCE (test code = 24716) Nasal_Swab_in_VTM__ UTM SARS-CoV-2 (COVID-19) by RT-PCR (HIGH RISK)2019-12-01 00:00:00 Test Item Value Reference Range Interpretation Comments SARS-CoV-2 INTERPRETATION Positive (test code = 30943) SOURCE (test code = 17221) Nasal_Swab_in_VTM__ UTM SARS-CoV-2 (COVID-19) by RT-PCR (HIGH RISK)2019-09-01 00:00:00 Test Item Value Reference Range Interpretation Comments SARS-CoV-2 INTERPRETATION (test NEGATIVE code = 67018) SOURCE (test code = 37647) NOT SPECIFIED SARS-CoV-2 (COVID-19) by RT-PCR (HIGH RISK)2019-09-01 00:00:00 Test Item Value Reference Range Interpretation Comments SARS-CoV-2 INTERPRETATION (test NEGATIVE code = 72126) SOURCE (test code = 00161) NOT SPECIFIED SARS-CoV-2 (COVID-19) by RT-PCR (HIGH RISK)2019-09-01 00:00:00 Test Item Value Reference Range Interpretation Comments SARS-CoV-2 INTERPRETATION (test NEGATIVE code = 99932) SOURCE (test code = 04214) NOT SPECIFIED SARS-CoV-2 (COVID-19) by RT-PCR (HIGH RISK)2019-09-01 00:00:00 Test Item Value Reference Range Interpretation Comments SARS-CoV-2 INTERPRETATION (test NEGATIVE code = 19251) SOURCE (test code = 39922) NOT SPECIFIED SARS-CoV-2 (COVID-19) by RT-PCR (HIGH RISK)2019-09-01 00:00:00 Test Item Value Reference Range Interpretation Comments SARS-CoV-2 INTERPRETATION (test NEGATIVE code = 09936) SOURCE (test code = 17736) NOT SPECIFIED HEMOGLOBIN [id number] 00:00:00 Test Item Value Reference Range Interpretation Comments HEMOGLOBIN A1c (test code = 66812) 8.1 % LIPID [id number] 00:00:00 Test Item Value Reference Range Interpretation Comments CHOLESTEROL (test code = 2210) 336 MG/DL TRIGLYCERIDES (test code = 2232) 1678 MG/DL HDL CHOLESTEROL (test code = 28 MG/DL 2220) CALC LDL CHOL (test code = 2237) (NOTE) MG/DL RISK RATIO LDL/HDL (test code = (NOTE) RATIO 2238) COMPREHENSIVE METABOLIC [id number] 00:00:00 Test Item Value Reference Range Interpretation Comments GLUCOSE (test code = 2217) 175 MG/DL BUN (test code = 2208) 8 MG/DL CREATININE (test code = 2214) 0.53 MG/DL eGFR AMER. (test code 133 ML/MIN/1.73 = 70705) eGFR NON- AMER. (test 115 ML/MIN/1.73 code = 39768) CALC BUN/CREAT (test code = 15 RATIO [...] (test code = 2219) 25 U/L HEMOGLOBIN [id number] 00:00:00 Test Item Value Reference Range Interpretation Comments HEMOGLOBIN A1c (test code = 66033) 8.1 % HEMOGLOBIN [id number] 00:00:00 Test Item Value Reference Range Interpretation Comments HEMOGLOBIN A1c (test code = 98234) 8.1 % HEMOGLOBIN [id number] 00:00:00 Test Item Value Reference Range Interpretation Comments HEMOGLOBIN A1c (test code = 00486) 8.1 % LIPID [id number] 00:00:00 Test Item Value Reference Range Interpretation Comments CHOLESTEROL (test code = 2210) 336 MG/DL TRIGLYCERIDES (test code = 2232) 1678 MG/DL HDL CHOLESTEROL (test code = 28 MG/DL 2220) CALC LDL CHOL (test code = 2237) (NOTE) MG/DL RISK RATIO LDL/HDL (test code = (NOTE) RATIO 2238) LIPID [id number] 00:00:00 Test Item Value Reference Range Interpretation Comments CHOLESTEROL (test code = 2210) 336 MG/DL TRIGLYCERIDES (test code = 2232) 1678 MG/DL HDL CHOLESTEROL (test code = 28 MG/DL 2220) CALC LDL CHOL (test code = 2237) (NOTE) MG/DL RISK RATIO LDL/HDL (test code = (NOTE) RATIO 2238) COMPREHENSIVE METABOLIC [id number] 00:00:00 Test Item Value Reference Range Interpretation Comments GLUCOSE (test code = 2217) 175 MG/DL BUN (test code = 2208) 8 MG/DL CREATININE (test code = 2214) 0.53 MG/DL eGFR AMER. (test code 133 ML/MIN/1.73 = 75372) eGFR NON- AMER. (test 115 ML/MIN/1.73 code = 99995) CALC BUN/CREAT (test code = 15 RATIO [...] code = 2219) 25 U/L COMPREHENSIVE METABOLIC [id number] 00:00:00 Test Item Value Reference Range Interpretation Comments GLUCOSE (test code = 2217) 175 MG/DL BUN (test code = 2208) 8 MG/DL CREATININE (test code = 2214) 0.53 MG/DL eGFR AMER. (test code 133 ML/MIN/1.73 = 94003) eGFR NON- AMER. (test 115 ML/MIN/1.73 code = 96631) CALC BUN/CREAT (test code = 15 RATIO [...] CALC GLOBULIN (test code = 2.5 G/DL 224) CALC A/G RATIO (test code = 1.7 RATIO 2234) BILIRUBIN, TOTAL (test code = 0.3 MG/DL 2206) ALKALINE PHOSPHATASE (test 87 U/L code = 2204) AST (test code = 2218) 21 U/L ALT (test code = 2219) 25 U/L HEMOGLOBIN [id number] 00:00:00 Test Item Value Reference Range Interpretation Comments HEMOGLOBIN A1c (test code = 18633) 8.1 % HEMOGLOBIN [id number] 00:00:00 Test Item Value Reference Range Interpretation Comments HEMOGLOBIN A1c (test code = 59101) 8.1 % HEMOGLOBIN [id number] 00:00:00 Test Item Value Reference Range Interpretation Comments HEMOGLOBIN A1c (test code = 43448) 8.1 % LIPID [id number] 00:00:00 Test Item Value Reference Range Interpretation Comments CHOLESTEROL (test code = 2210) 336 MG/DL TRIGLYCERIDES (test code = 2232) 1678 MG/DL HDL CHOLESTEROL (test code = 28 MG/DL 2220) CALC LDL CHOL (test code = 2237) (NOTE) MG/DL RISK RATIO LDL/HDL (test code = (NOTE) RATIO 2238) LIPID [id number] 00:00:00 Test Item Value Reference Range Interpretation Comments CHOLESTEROL (test code = 2210) 336 MG/DL TRIGLYCERIDES (test code = 2232) 1678 MG/DL HDL CHOLESTEROL (test code = 28 MG/DL 2220) CALC LDL CHOL (test code = 2237) (NOTE) MG/DL RISK RATIO LDL/HDL (test code = (NOTE) RATIO 2238) COMPREHENSIVE METABOLIC [id number] 00:00:00 Test Item Value Reference Range Interpretation Comments GLUCOSE (test code = 2217) 175 MG/DL BUN (test code = 2208) 8 MG/DL CREATININE (test code = 2214) 0.53 MG/DL eGFR AMER. (test code 133 ML/MIN/1.73 = 47060) eGFR NON- AMER. (test 115 ML/MIN/1.73 code = 64532) CALC BUN/CREAT (test code = 15 RATIO [...] code = 2219) 25 U/L COMPREHENSIVE METABOLIC [id number] 00:00:00 Test Item Value Reference Range Interpretation Comments GLUCOSE (test code = 2217) 175 MG/DL BUN (test code = 2208) 8 MG/DL CREATININE (test code = 2214) 0.53 MG/DL eGFR AMER. (test code 133 ML/MIN/1.73 = 97758) eGFR NON- AMER. (test 115 ML/MIN/1.73 code = 77272) CALC BUN/CREAT (test code = 15 RATIO [...] (test code = 2219) 25 U/L HEMOGLOBIN [id number] 00:00:00 Test Item Value Reference Range Interpretation Comments HEMOGLOBIN A1c (test code = 05662) 8.1 % COMPREHENSIVE METABOLIC [id number] 00:00:00 Test Item Value Reference Range Interpretation Comments GLUCOSE (test code = 2217) 286 MG/DL BUN (test code = 2208) 9 MG/DL CREATININE (test code = 2214) 0.56 MG/DL eGFR AMER. (test code 131 ML/MIN/1.73 = 27535) eGFR NON- AMER. (test 113 ML/MIN/1.73 code = 91524) CALC BUN/CREAT (test code = 16 RATIO [...] code = 2219) <5 U/L COMPREHENSIVE METABOLIC [id number] 00:00:00 Test Item Value Reference Range Interpretation Comments GLUCOSE (test code = 2217) 286 MG/DL BUN (test code = 2208) 9 MG/DL CREATININE (test code = 2214) 0.56 MG/DL eGFR AMER. (test code 131 ML/MIN/1.73 = 65552) eGFR NON- AMER. (test 113 ML/MIN/1.73 code = 86046) CALC BUN/CREAT (test code = 16 RATIO [...] code = 2219) <5 U/L COMPREHENSIVE METABOLIC [id number] 00:00:00 Test Item Value Reference Range Interpretation Comments GLUCOSE (test code = 2217) 286 MG/DL BUN (test code = 2208) 9 MG/DL CREATININE (test code = 2214) 0.56 MG/DL eGFR AMER. (test code 131 ML/MIN/1.73 = 27562) eGFR NON- AMER. (test 113 ML/MIN/1.73 code = 03364) CALC BUN/CREAT (test code = 16 RATIO [...] = 0.3 MG/DL 7) ALKALINE PHOSPHATASE (test 105 U/L code = 2204) AST (test code = 2218) 6 U/L ALT (test code = 2219) <5 U/L COMPREHENSIVE METABOLIC [id number] 00:00:00 Test Item Value Reference Range Interpretation Comments GLUCOSE (test code = 2217) 286 MG/DL BUN (test code = 2208) 9 MG/DL CREATININE (test code = 2214) 0.56 MG/DL eGFR AMER. (test code 131 ML/MIN/1.73 = 80202) eGFR NON- AMER. (test 113 ML/MIN/1.73 code = 94276) CALC BUN/CREAT (test code = 16 RATIO [...] code = 2219) <5 U/L COMPREHENSIVE METABOLIC [id number] 00:00:00 Test Item Value Reference Range Interpretation Comments GLUCOSE (test code = 2217) 286 MG/DL BUN (test code = 2208) 9 MG/DL CREATININE (test code = 2214) 0.56 MG/DL eGFR AMER. (test code 131 ML/MIN/1.73 = 82196) eGFR NON- AMER. (test 113 ML/MIN/1.73 code = 90189) CALC BUN/CREAT (test code = 16 RATIO [...] = 2219) <5 U/L MICROALBUMIN/CREATININE, RANDOM AND [id number] 00:00:00 Test Item Value Reference Range Interpretation Comments CREATININE, URINE, CONC. (test 112.4 MG/DL code = 2072) ALBUMIN, URINE, RANDOM (test code 9.2 MG/DL = 24629) CALC ALBUMIN/CREAT, RND (test 82 MG/G code = 98630) HEMOGLOBIN [id number] 00:00:00 Test Item Value Reference Range Interpretation Comments HEMOGLOBIN A1c (test code = 16244) 7.5 % HEMOGLOBIN [id number] 00:00:00 Test Item Value Reference Range Interpretation Comments HEMOGLOBIN A1c (test code = 38294) 7.5 % HEMOGLOBIN [id number] 00:00:00 Test Item Value Reference Range Interpretation Comments HEMOGLOBIN A1c (test code = 31475) 7.5 % MICROALBUMIN/CREATININE, RANDOM AND [id number] 00:00:00 Test Item Value Reference Range Interpretation Comments CREATININE, URINE, CONC. (test 112.4 MG/DL code = 2072) ALBUMIN, URINE, RANDOM (test code 9.2 MG/DL = 33241) CALC ALBUMIN/CREAT, RND (test 82 MG/G code = 50277) MICROALBUMIN/CREATININE, RANDOM AND [id number] 00:00:00 Test Item Value Reference Range Interpretation Comments CREATININE, URINE, CONC. (test 112.4 MG/DL code = 2072) ALBUMIN, URINE, RANDOM (test code 9.2 MG/DL = 60743) CALC ALBUMIN/CREAT, RND (test 82 MG/G code = 38546) HEMOGLOBIN [id number] 00:00:00 Test Item Value Reference Range Interpretation Comments HEMOGLOBIN A1c (test code = 60154) 7.5 % HEMOGLOBIN [id number] 00:00:00 Test Item Value Reference Range Interpretation Comments HEMOGLOBIN A1c (test code = 31475) 7.5 % HEMOGLOBIN [id number] 00:00:00 Test Item Value Reference Range Interpretation Comments HEMOGLOBIN A1c (test code = 85234) 7.5 % MICROALBUMIN/CREATININE, RANDOM AND [id number] 00:00:00 Test Item Value Reference Range Interpretation Comments CREATININE, URINE, CONC. (test 112.4 MG/DL code = 2072) ALBUMIN, URINE, RANDOM (test code 9.2 MG/DL = 41913) CALC ALBUMIN/CREAT, RND (test 82 MG/G code = 18893) MICROALBUMIN/CREATININE, RANDOM AND [id number] 00:00:00 Test Item Value Reference Range Interpretation Comments CREATININE, URINE, CONC. (test 112.4 MG/DL code = 2072) ALBUMIN, URINE, RANDOM (test code 9.2 MG/DL = 34639) CALC ALBUMIN/CREAT, RND (test 82 MG/G code = 85746) HEMOGLOBIN [id number] 00:00:00 Test Item Value Reference Range Interpretation Comments HEMOGLOBIN A1c (test code = 50204) 7.5 % HEMOGLOBIN [id number] 00:00:00 Test Item Value Reference Range Interpretation Comments HEMOGLOBIN A1c (test code = 52405) 7.5 % HEMOGLOBIN [id number] 00:00:00 Test Item Value Reference Range Interpretation Comments HEMOGLOBIN A1c (test code = 22198) 8.2 % HEMOGLOBIN [id number] 00:00:00 Test Item Value Reference Range Interpretation Comments HEMOGLOBIN A1c (test code = 66147) 8.2 % MICROALBUMIN/CREATININE, RANDOM AND [id number] 00:00:00 Test Item Value Reference Range Interpretation Comments CREATININE, URINE, CONC. (test 95.3 MG/DL code = 2072) ALBUMIN, URINE, RANDOM (test code 15.6 MG/DL = 11941) CALC ALBUMIN/CREAT, RND (test code 164 MG/G = 24950) HEMOGLOBIN [id number] 00:00:00 Test Item Value Reference Range Interpretation Comments HEMOGLOBIN A1c (test code = 16918) 8.2 % HEMOGLOBIN [id number] 00:00:00 Test Item Value Reference Range Interpretation Comments HEMOGLOBIN A1c (test code = 92702) 8.2 % HEMOGLOBIN [id number] 00:00:00 Test Item Value Reference Range Interpretation Comments HEMOGLOBIN A1c (test code = 90903) 8.2 % MICROALBUMIN/CREATININE, RANDOM AND [id number] 00:00:00 Test Item Value Reference Range Interpretation Comments CREATININE, URINE, CONC. (test 95.3 MG/DL code = 2072) ALBUMIN, URINE, RANDOM (test code 15.6 MG/DL = 97537) CALC ALBUMIN/CREAT, RND (test code 164 MG/G = 79144) MICROALBUMIN/CREATININE, RANDOM AND [id number] 00:00:00 Test Item Value Reference Range Interpretation Comments CREATININE, URINE, CONC. (test 95.3 MG/DL code = 2072) ALBUMIN, URINE, RANDOM (test code 15.6 MG/DL = 42512) CALC ALBUMIN/CREAT, RND (test code 164 MG/G = 19677) HEMOGLOBIN [id number] 00:00:00 Test Item Value Reference Range Interpretation Comments HEMOGLOBIN A1c (test code = 82843) 8.2 % HEMOGLOBIN [id number] 00:00:00 Test Item Value Reference Range Interpretation Comments HEMOGLOBIN A1c (test code = 99860) 8.2 % HEMOGLOBIN [id number] 00:00:00 Test Item Value Reference Range Interpretation Comments HEMOGLOBIN A1c (test code = 65288) 8.2 % MICROALBUMIN/CREATININE, RANDOM AND [id number] 00:00:00 Test Item Value Reference Range Interpretation Comments CREATININE, URINE, CONC. (test 95.3 MG/DL code = 2072) ALBUMIN, URINE, RANDOM (test code 15.6 MG/DL = 60553) CALC ALBUMIN/CREAT, RND (test code 164 MG/G = 67900) MICROALBUMIN/CREATININE, RANDOM AND [id number] 00:00:00 Test Item Value Reference Range Interpretation Comments CREATININE, URINE, CONC. (test 95.3 MG/DL code = 2072) ALBUMIN, URINE, RANDOM (test code 15.6 MG/DL = 29666) CALC ALBUMIN/CREAT, RND (test code 164 MG/G = 37768) LIPID [id number] 00:00:00 Test Item Value Reference Range Interpretation Comments CHOLESTEROL (test code = 2210) 242 MG/DL TRIGLYCERIDES (test code = 2232) 721 MG/DL HDL CHOLESTEROL (test code = 41 MG/DL 0) CALC LDL CHOL (test code = 2237) NOTE MG/DL RISK RATIO LDL/HDL (test code = (NOTE) RATIO 2238) HEMOGLOBIN [id number] 00:00:00 Test Item Value Reference Range Interpretation Comments HEMOGLOBIN A1c (test code = 25322) 7.0 % HEMOGLOBIN [id number] 00:00:00 Test Item Value Reference Range Interpretation Comments HEMOGLOBIN A1c (test code = 34737) 7.0 % COMPREHENSIVE METABOLIC [id number] 00:00:00 Test Item Value Reference Range Interpretation Comments GLUCOSE (test code = 2217) 188 MG/DL BUN (test code = 2208) 8 MG/DL CREATININE (test code = 2214) 0.47 MG/DL eGFR AMER. (test code 139 ML/MIN/1.73 = 30994) eGFR NON- AMER. (test 120 ML/MIN/1.73 code = 28000) CALC BUN/CREAT (test code = 17 RATIO [...] code = 2219) 11 U/L COMPREHENSIVE METABOLIC [id number] 00:00:00 Test Item Value Reference Range Interpretation Comments GLUCOSE (test code = 2217) 188 MG/DL BUN (test code = 2208) 8 MG/DL CREATININE (test code = 2214) 0.47 MG/DL eGFR AMER. (test code 139 ML/MIN/1.73 = 96373) eGFR NON- AMER. (test 120 ML/MIN/1.73 code = 69096) CALC BUN/CREAT (test code = 17 RATIO [...] (test code = 2219) 11 U/L LIPID [id number] 00:00:00 Test Item Value Reference Range Interpretation Comments CHOLESTEROL (test code = 2210) 242 MG/DL TRIGLYCERIDES (test code = 2232) 721 MG/DL HDL CHOLESTEROL (test code = 41 MG/DL 2220) CALC LDL CHOL (test code = 2237) NOTE MG/DL RISK RATIO LDL/HDL (test code = (NOTE) RATIO 2238) LIPID [id number] 00:00:00 Test Item Value Reference Range Interpretation Comments CHOLESTEROL (test code = 2210) 242 MG/DL TRIGLYCERIDES (test code = 2232) 721 MG/DL HDL CHOLESTEROL (test code = 41 MG/DL 2220) CALC LDL CHOL (test code = 2237) NOTE MG/DL RISK RATIO LDL/HDL (test code = (NOTE) RATIO 2238) HEMOGLOBIN [id number] 00:00:00 Test Item Value Reference Range Interpretation Comments HEMOGLOBIN A1c (test code = 37373) 7.0 % HEMOGLOBIN [id number] 00:00:00 Test Item Value Reference Range Interpretation Comments HEMOGLOBIN A1c (test code = 10786) 7.0 % HEMOGLOBIN [id number] 00:00:00 Test Item Value Reference Range Interpretation Comments HEMOGLOBIN A1c (test code = 69255) 7.0 % COMPREHENSIVE METABOLIC [id number] 00:00:00 Test Item Value Reference Range Interpretation Comments GLUCOSE (test code = 2217) 188 MG/DL BUN (test code = 2208) 8 MG/DL CREATININE (test code = 2214) 0.47 MG/DL eGFR AMER. (test code 139 ML/MIN/1.73 = 87860) eGFR NON- AMER. (test 120 ML/MIN/1.73 code = 35510) CALC BUN/CREAT (test code = 17 RATIO [...] code = 2219) 11 U/L COMPREHENSIVE METABOLIC [id number] 00:00:00 Test Item Value Reference Range Interpretation Comments GLUCOSE (test code = 2217) 188 MG/DL BUN (test code = 2208) 8 MG/DL CREATININE (test code = 2214) 0.47 MG/DL eGFR AMER. (test code 139 ML/MIN/1.73 = 06094) eGFR NON- AMER. (test 120 ML/MIN/1.73 code = 74152) CALC BUN/CREAT (test code = 17 RATIO 2235) SODIUM (test code = 2231) 137 MEQ/L POTASSIUM (test code = 2228) 4.6 MEQ/L CHLORIDE (test code = 2215) 101 MEQ/L CARBON DIOXIDE (test code = 24 MEQ/L 2206) CALCIUM (test code = 2209) 9.4 MG/DL PROTEIN, TOTAL (test code = 6.9 G/DL 9) ALBUMIN (test code = 2201) 4.3 G/DL CALC GLOBULIN (test code = 2.6 G/DL 2240) CALC A/G RATIO (test code = 1.7 RATIO 2234) BILIRUBIN, TOTAL (test code = 0.2 MG/DL 2206) ALKALINE PHOSPHATASE (test 79 U/L code = 2204) AST (test code = 2218) 13 U/L ALT (test code = 2219) 11 U/L LIPID [id number] 00:00:00 Test Item Value Reference Range Interpretation Comments CHOLESTEROL (test code = 2210) 242 MG/DL TRIGLYCERIDES (test code = 2232) 721 MG/DL HDL CHOLESTEROL (test code = 41 MG/DL 2220) CALC LDL CHOL (test code = 2237) NOTE MG/DL RISK RATIO LDL/HDL (test code = (NOTE) RATIO 2238) LIPID [id number] 00:00:00 Test Item Value Reference Range Interpretation Comments CHOLESTEROL (test code = 2210) 242 MG/DL TRIGLYCERIDES (test code = 2232) 721 MG/DL HDL CHOLESTEROL (test code = 41 MG/DL 2220) CALC LDL CHOL (test code = 2237) NOTE MG/DL RISK RATIO LDL/HDL (test code = (NOTE) RATIO 2238) HEMOGLOBIN [id number] 00:00:00 Test Item Value Reference Range Interpretation Comments HEMOGLOBIN A1c (test code = 48403) 7.0 % HEMOGLOBIN [id number] 00:00:00 Test Item Value Reference Range Interpretation Comments HEMOGLOBIN A1c (test code = 26462) 7.0 % HEMOGLOBIN [id number] 00:00:00 Test Item Value Reference Range Interpretation Comments HEMOGLOBIN A1c (test code = 39138) 7.0 % COMPREHENSIVE METABOLIC [id number] 00:00:00 Test Item Value Reference Range Interpretation Comments GLUCOSE (test code = 2217) 188 MG/DL BUN (test code = 2208) 8 MG/DL CREATININE (test code = 2214) 0.47 MG/DL eGFR AMER. (test code 139 ML/MIN/1.73 = 07797) eGFR NON- AMER. (test 120 ML/MIN/1.73 code = 58554) CALC BUN/CREAT (test code = 17 RATIO [...] (test code = 2219) 11 U/L LIPID [id number] 00:00:00 Test Item Value Reference Range Interpretation Comments CHOLESTEROL (test code = 2210) 182 MG/DL TRIGLYCERIDES (test code = 2232) 489 MG/DL HDL CHOLESTEROL (test code = 43 MG/DL 2219) CALC LDL CHOL (test code = 2237) NOTE MG/DL RISK RATIO LDL/HDL (test code = (NOTE) RATIO 2238) HEMOGLOBIN [id number] 00:00:00 Test Item Value Reference Range Interpretation Comments HEMOGLOBIN A1c (test code = 56355) 6.1 % HEMOGLOBIN [id number] 00:00:00 Test Item Value Reference Range Interpretation Comments HEMOGLOBIN A1c (test code = 96283) 6.1 % COMPREHENSIVE METABOLIC [id number] 00:00:00 Test Item Value Reference Range Interpretation Comments GLUCOSE (test code = 2217) 169 MG/DL BUN (test code = 2208) 7 MG/DL CREATININE (test code = 2214) 0.51 MG/DL eGFR AMER. (test code 136 ML/MIN/1.73 = 85568) eGFR NON- AMER. (test 118 ML/MIN/1.73 code = 20461) CALC BUN/CREAT (test code = 14 RATIO [...] code = 2219) 10 U/L COMPREHENSIVE METABOLIC [id number] 00:00:00 Test Item Value Reference Range Interpretation Comments GLUCOSE (test code = 2217) 169 MG/DL BUN (test code = 2208) 7 MG/DL CREATININE (test code = 2214) 0.51 MG/DL eGFR AMER. (test code 136 ML/MIN/1.73 = 78488) eGFR NON- AMER. (test 118 ML/MIN/1.73 code = 83284) CALC BUN/CREAT (test code = 14 RATIO [...] (test code = 2219) 10 U/L LIPID [id number] 00:00:00 Test Item Value Reference Range Interpretation Comments CHOLESTEROL (test code = 2210) 182 MG/DL TRIGLYCERIDES (test code = 2232) 489 MG/DL HDL CHOLESTEROL (test code = 43 MG/DL 2220) CALC LDL CHOL (test code = 2237) NOTE MG/DL RISK RATIO LDL/HDL (test code = (NOTE) RATIO 2238) LIPID [id number] 00:00:00 Test Item Value Reference Range Interpretation Comments CHOLESTEROL (test code = 2210) 182 MG/DL TRIGLYCERIDES (test code = 2232) 489 MG/DL HDL CHOLESTEROL (test code = 43 MG/DL 0) CALC LDL CHOL (test code = 2237) NOTE MG/DL RISK RATIO LDL/HDL (test code = (NOTE) RATIO 2238) HEMOGLOBIN [id number] 00:00:00 Test Item Value Reference Range Interpretation Comments HEMOGLOBIN A1c (test code = 22503) 6.1 % HEMOGLOBIN [id number] 00:00:00 Test Item Value Reference Range Interpretation Comments HEMOGLOBIN A1c (test code = 55889) 6.1 % HEMOGLOBIN [id number] 00:00:00 Test Item Value Reference Range Interpretation Comments HEMOGLOBIN A1c (test code = 44710) 6.1 % COMPREHENSIVE METABOLIC [id number] 00:00:00 Test Item Value Reference Range Interpretation Comments GLUCOSE (test code = 2217) 169 MG/DL BUN (test code = 2208) 7 MG/DL CREATININE (test code = 2214) 0.51 MG/DL eGFR AMER. (test code 136 ML/MIN/1.73 = 53203) eGFR NON- AMER. (test 118 ML/MIN/1.73 code = 54984) CALC BUN/CREAT (test code = 14 RATIO [...] = 0.3 MG/DL 220) ALKALINE PHOSPHATASE (test 92 U/L code = 2204) AST (test code = 2218) 16 U/L ALT (test code = 2219) 10 U/L COMPREHENSIVE METABOLIC [id number] 00:00:00 Test Item Value Reference Range Interpretation Comments GLUCOSE (test code = 2217) 169 MG/DL BUN (test code = 2208) 7 MG/DL CREATININE (test code = 2214) 0.51 MG/DL eGFR AMER. (test code 136 ML/MIN/1.73 = 48747) eGFR NON- AMER. (test 118 ML/MIN/1.73 code = 26512) CALC BUN/CREAT (test code = 14 RATIO [...] (test code = 2219) 10 U/L LIPID [id number] 00:00:00 Test Item Value Reference Range Interpretation Comments CHOLESTEROL (test code = 2210) 182 MG/DL TRIGLYCERIDES (test code = 2232) 489 MG/DL HDL CHOLESTEROL (test code = 43 MG/DL 2220) CALC LDL CHOL (test code = 2237) NOTE MG/DL RISK RATIO LDL/HDL (test code = (NOTE) RATIO 2238) LIPID [id number] 00:00:00 Test Item Value Reference Range Interpretation Comments CHOLESTEROL (test code = 2210) 182 MG/DL TRIGLYCERIDES (test code = 2232) 489 MG/DL HDL CHOLESTEROL (test code = 43 MG/DL 2220) CALC LDL CHOL (test code = 2237) NOTE MG/DL RISK RATIO LDL/HDL (test code = (NOTE) RATIO 2238) HEMOGLOBIN [id number] 00:00:00 Test Item Value Reference Range Interpretation Comments HEMOGLOBIN A1c (test code = 05900) 6.1 % HEMOGLOBIN [id number] 00:00:00 Test Item Value Reference Range Interpretation Comments HEMOGLOBIN A1c (test code = 86544) 6.1 % HEMOGLOBIN [id number] 00:00:00 Test Item Value Reference Range Interpretation Comments HEMOGLOBIN A1c (test code = 78906) 6.1 % COMPREHENSIVE METABOLIC [id number] 00:00:00 Test Item Value Reference Range Interpretation Comments GLUCOSE (test code = 2217) 169 MG/DL BUN (test code = 2208) 7 MG/DL CREATININE (test code = 2214) 0.51 MG/DL eGFR AMER. (test code 136 ML/MIN/1.73 = 22365) eGFR NON- AMER. (test 118 ML/MIN/1.73 code = 15048) CALC BUN/CREAT (test code = 14 RATIO [...] = 2219) 10 U/L MICROALBUMIN/CREATININE, RANDOM AND [id number] 00:00:00 Test Item Value Reference Range Interpretation Comments CREATININE, URINE, CONC. (test 86.9 MG/DL code = 2072) MICROALBUMIN, RANDOM (test code = 3.2 MG/DL 40059) CALC MICROALB/CREAT RND (test code 37 MG/G = 05999) MICROALBUMIN/CREATININE, RANDOM AND [id number] 00:00:00 Test Item Value Reference Range Interpretation Comments CREATININE, URINE, CONC. (test 86.9 MG/DL code = 2072) MICROALBUMIN, RANDOM (test code = 3.2 MG/DL 88364) CALC MICROALB/CREAT RND (test code 37 MG/G = 35975) MICROALBUMIN/CREATININE, RANDOM AND [id number] 00:00:00 Test Item Value Reference Range Interpretation Comments CREATININE, URINE, CONC. (test 86.9 MG/DL code = 2072) MICROALBUMIN, RANDOM (test code = 3.2 MG/DL 83355) CALC MICROALB/CREAT RND (test code 37 MG/G = 75520) MICROALBUMIN/CREATININE, RANDOM AND [id number] 00:00:00 Test Item Value Reference Range Interpretation Comments CREATININE, URINE, CONC. (test 86.9 MG/DL code = 2072) MICROALBUMIN, RANDOM (test code = 3.2 MG/DL 53921) CALC MICROALB/CREAT RND (test code 37 MG/G = 78873) MICROALBUMIN/CREATININE, RANDOM AND [id number] 00:00:00 Test Item Value Reference Range Interpretation Comments CREATININE, URINE, CONC. (test 86.9 MG/DL code = 2072) MICROALBUMIN, RANDOM (test code = 3.2 MG/DL 59166) CALC MICROALB/CREAT RND (test code 37 MG/G = 44111) MICROALBUMIN/CREATININE, RANDOM AND [id number] 00:00:00 Test Item Value Reference Range Interpretation Comments CREATININE, URINE, TEST NOT PERFORMED MG/DL CONC. (test code = 2072) MICROALBUMIN, RANDOM TEST NOT PERFORMED MG/DL (test code = 73529) CALC MICROALB/CREAT TEST NOT PERFORMED MG/G RND (test code = 25543) MICROALBUMIN/CREATININE, RANDOM AND [id number] 00:00:00 Test Item Value Reference Range Interpretation Comments CREATININE, URINE, TEST NOT PERFORMED MG/DL CONC. (test code = 2072) MICROALBUMIN, RANDOM TEST NOT PERFORMED MG/DL (test code = 72916) CALC MICROALB/CREAT TEST NOT PERFORMED MG/G RND (test code = 27925) MICROALBUMIN/CREATININE, RANDOM AND [id number] 00:00:00 Test Item Value Reference Range Interpretation Comments CREATININE, URINE, TEST NOT PERFORMED MG/DL CONC. (test code = 2072) MICROALBUMIN, RANDOM TEST NOT PERFORMED MG/DL (test code = 99236) CALC MICROALB/CREAT TEST NOT PERFORMED MG/G RND (test code = 62129) MICROALBUMIN/CREATININE, RANDOM AND [id number] 00:00:00 Test Item Value Reference Range Interpretation Comments CREATININE, URINE, TEST NOT PERFORMED MG/DL CONC. (test code = 2072) MICROALBUMIN, RANDOM TEST NOT PERFORMED MG/DL (test code = 58476) CALC MICROALB/CREAT TEST NOT PERFORMED MG/G RND (test code = 17556) MICROALBUMIN/CREATININE, RANDOM AND [id number] 00:00:00 Test Item Value Reference Range Interpretation Comments CREATININE, URINE, TEST NOT PERFORMED MG/DL CONC. (test code = 207) MICROALBUMIN, RANDOM TEST NOT PERFORMED MG/DL (test code = 88152) CALC MICROALB/CREAT TEST NOT PERFORMED MG/G RND (test code = 89740) HEMOGLOBIN [id number] 00:00:00 Test Item Value Reference Range Interpretation Comments HEMOGLOBIN A1c (test code = 62325) 9.0 % HEMOGLOBIN [id number] 00:00:00 Test Item Value Reference Range Interpretation Comments HEMOGLOBIN A1c (test code = 25892) 9.0 % [id number] 00:00:00 Test Item Value Reference Range Interpretation Comments TSH (test code = 2821) 0.853 UIU/ML [id number] 00:00:00 Test Item Value Reference Range Interpretation Comments TSH (test code = 2821) 0.853 UIU/ML COMPREHENSIVE METABOLIC [id number] 00:00:00 Test Item Value Reference Range Interpretation Comments GLUCOSE (test code = 2217) 298 MG/DL BUN (test code = 2208) 8 MG/DL CREATININE (test code = 2214) 0.39 MG/DL eGFR AMER. (test code 149 ML/MIN/1.73 = 04841) eGFR NON- AMER. (test 129 ML/MIN/1.73 code = 74511) CALC BUN/CREAT (test code = 21 RATIO [...] (test code = 2219) 8 U/L LIPID [id number] 00:00:00 Test Item Value Reference Range Interpretation Comments CHOLESTEROL (test code = 2210) 233 MG/DL TRIGLYCERIDES (test code = 2232) 775 MG/DL HDL CHOLESTEROL (test code = 39 MG/DL 2220) CALC LDL CHOL (test code = 2237) NOTE MG/DL RISK RATIO LDL/HDL (test code = (NOTE) RATIO 2238) CBC W/AUTO [id number] 00:00:00 Test Item Value Reference Range Interpretation [...] code = 1015) 317 K/UL CBC W/AUTO [id number] 00:00:00 Test Item Value Reference Range Interpretation [...] code = 1015) 317 K/UL CBC W/AUTO [id number] 00:00:00 Test Item Value Reference Range Interpretation [...] (test code = 1015) 317 K/UL HEMOGLOBIN [id number] 00:00:00 Test Item Value Reference Range Interpretation Comments HEMOGLOBIN A1c (test code = 85268) 9.0 % HEMOGLOBIN [id number] 00:00:00 Test Item Value Reference Range Interpretation Comments HEMOGLOBIN A1c (test code = 09950) 9.0 % HEMOGLOBIN [id number] 00:00:00 Test Item Value Reference Range Interpretation Comments HEMOGLOBIN A1c (test code = 46225) 9.0 % [id number] 00:00:00 Test Item Value Reference Range Interpretation Comments TSH (test code = 2821) 0.853 UIU/ML [id number] 00:00:00 Test Item Value Reference Range Interpretation Comments TSH (test code = 2821) 0.853 UIU/ML [id number] 00:00:00 Test Item Value Reference Range Interpretation Comments TSH (test code = 2821) 0.853 UIU/ML COMPREHENSIVE METABOLIC [id number] 00:00:00 Test Item Value Reference Range Interpretation Comments GLUCOSE (test code = 2217) 298 MG/DL BUN (test code = 2208) 8 MG/DL CREATININE (test code = 2214) 0.39 MG/DL eGFR AMER. (test code 149 ML/MIN/1.73 = 95472) eGFR NON- AMER. (test 129 ML/MIN/1.73 code = 94278) CALC BUN/CREAT (test code = 21 RATIO [...] code = 2219) 8 U/L COMPREHENSIVE METABOLIC [id number] 00:00:00 Test Item Value Reference Range Interpretation Comments GLUCOSE (test code = 2217) 298 MG/DL BUN (test code = 2208) 8 MG/DL CREATININE (test code = 2214) 0.39 MG/DL eGFR AMER. (test code 149 ML/MIN/1.73 = 36839) eGFR NON- AMER. (test 129 ML/MIN/1.73 code = 08017) CALC BUN/CREAT (test code = 21 RATIO [...] (test code = 2219) 8 U/L LIPID [id number] 00:00:00 Test Item Value Reference Range Interpretation Comments CHOLESTEROL (test code = 2210) 233 MG/DL TRIGLYCERIDES (test code = 2232) 775 MG/DL HDL CHOLESTEROL (test code = 39 MG/DL 2220) CALC LDL CHOL (test code = 2237) NOTE MG/DL RISK RATIO LDL/HDL (test code = (NOTE) RATIO 2238) LIPID [id number] 00:00:00 Test Item Value Reference Range Interpretation Comments CHOLESTEROL (test code = 2210) 233 MG/DL TRIGLYCERIDES (test code = 2232) 775 MG/DL HDL CHOLESTEROL (test code = 39 MG/DL 2220) CALC LDL CHOL (test code = 2237) NOTE MG/DL RISK RATIO LDL/HDL (test code = (NOTE) RATIO 2238) CBC W/AUTO [id number] 00:00:00 Test Item Value Reference Range Interpretation [...] code = 1015) 317 K/UL CBC W/AUTO [id number] 00:00:00 Test Item Value Reference Range Interpretation [...] code = 1015) 317 K/UL CBC W/AUTO [id number] 00:00:00 Test Item Value Reference Range Interpretation [...] (test code = 1015) 317 K/UL HEMOGLOBIN [id number] 00:00:00 Test Item Value Reference Range Interpretation Comments HEMOGLOBIN A1c (test code = 11485) 9.0 % HEMOGLOBIN [id number] 00:00:00 Test Item Value Reference Range Interpretation Comments HEMOGLOBIN A1c (test code = 48775) 9.0 % HEMOGLOBIN [id number] 00:00:00 Test Item Value Reference Range Interpretation Comments HEMOGLOBIN A1c (test code = 38905) 9.0 % [id number] 00:00:00 Test Item Value Reference Range Interpretation Comments TSH (test code = 2821) 0.853 UIU/ML [id number] 00:00:00 Test Item Value Reference Range Interpretation Comments TSH (test code = 2821) 0.853 UIU/ML [id number] 00:00:00 Test Item Value Reference Range Interpretation Comments TSH (test code = 2821) 0.853 UIU/ML COMPREHENSIVE METABOLIC [id number] 00:00:00 Test Item Value Reference Range Interpretation Comments GLUCOSE (test code = 2217) 298 MG/DL BUN (test code = 2208) 8 MG/DL CREATININE (test code = 2214) 0.39 MG/DL eGFR AMER. (test code 149 ML/MIN/1.73 = 90799) eGFR NON- AMER. (test 129 ML/MIN/1.73 code = 90434) CALC BUN/CREAT (test code = 21 RATIO [...] code = 2219) 8 U/L COMPREHENSIVE METABOLIC [id number] 00:00:00 Test Item Value Reference Range Interpretation Comments GLUCOSE (test code = 2217) 298 MG/DL BUN (test code = 2208) 8 MG/DL CREATININE (test code = 2214) 0.39 MG/DL eGFR AMER. (test code 149 ML/MIN/1.73 = 58728) eGFR NON- AMER. (test 129 ML/MIN/1.73 code = 80514) CALC BUN/CREAT (test code = 21 RATIO [...] (test code = 2219) 8 U/L LIPID [id number] 00:00:00 Test Item Value Reference Range Interpretation Comments CHOLESTEROL (test code = 2210) 233 MG/DL TRIGLYCERIDES (test code = 2232) 775 MG/DL HDL CHOLESTEROL (test code = 39 MG/DL 2220) CALC LDL CHOL (test code = 2237) NOTE MG/DL RISK RATIO LDL/HDL (test code = (NOTE) RATIO 2238) LIPID [id number] 00:00:00 Test Item Value Reference Range Interpretation Comments CHOLESTEROL (test code = 2210) 233 MG/DL TRIGLYCERIDES (test code = 2232) 775 MG/DL HDL CHOLESTEROL (test code = 39 MG/DL 2220) CALC LDL CHOL (test code = 2237) NOTE MG/DL RISK RATIO LDL/HDL (test code = (NOTE) RATIO 2238) CBC W/AUTO [id number] 00:00:00 Test Item Value Reference Range Interpretation [...] code = 1015) 317 K/UL CBC W/AUTO [id number] 00:00:00 Test Item Value Reference Range Interpretation [...] code = 1015) 317 K/UL CBC W/AUTO [id number] 00:00:00 Test Item Value Reference Range Interpretation [...] (test code = 1016) (NOTE) CBC W/AUTO [id number] 00:00:00 Test Item Value Reference Range Interpretation [...] COMMENTS (test code = 1016) (NOTE) HEMOGLOBIN [id number] 00:00:00 Test Item Value Reference Range Interpretation Comments HEMOGLOBIN A1c (test code = 15351) 8.3 % HEMOGLOBIN [id number] 00:00:00 Test Item Value Reference Range Interpretation Comments HEMOGLOBIN A1c (test code = 22587) 8.3 % [id number] 00:00:00 Test Item Value Reference Range Interpretation Comments TSH (test code = 2821) 1.1 UIU/ML [id number] 00:00:00 Test Item Value Reference Range Interpretation Comments TSH (test code = 2821) 1.1 UIU/ML COMPREHENSIVE METABOLIC [id number] 00:00:00 Test Item Value Reference Range Interpretation Comments GLUCOSE (test code = 2217) 196 MG/DL BUN (test code = 2208) 8 MG/DL CREATININE (test code = 2214) 0.48 MG/DL eGFR AMER. (test code 141 ML/MIN/1.73 = 57047) eGFR NON- AMER. (test 122 ML/MIN/1.73 code = 82138) CALCULATED BUN/CREAT (test 17 RATIO code = [...] (test code = 2219) 7 U/L LIPID [id number] 00:00:00 Test Item Value Reference Range Interpretation Comments CHOLESTEROL (test code = 2210) 289 MG/DL TRIGLYCERIDES (test code = 2232) 1092 MG/DL HDL CHOLESTEROL (test code = 2220) 41 MG/DL CALCULATED LDL CHOL (test code = NOTE MG/DL 2237) CBC W/AUTO [id number] 00:00:00 Test Item Value Reference Range Interpretation [...] (test code = 1016) (NOTE) CBC W/AUTO [id number] 00:00:00 Test Item Value Reference Range Interpretation [...] (test code = 1016) (NOTE) CBC W/AUTO [id number] 00:00:00 Test Item Value Reference Range Interpretation [...] COMMENTS (test code = 1016) (NOTE) HEMOGLOBIN [id number] 00:00:00 Test Item Value Reference Range Interpretation Comments HEMOGLOBIN A1c (test code = 26136) 8.3 % HEMOGLOBIN [id number] 00:00:00 Test Item Value Reference Range Interpretation Comments HEMOGLOBIN A1c (test code = 51253) 8.3 % HEMOGLOBIN [id number] 00:00:00 Test Item Value Reference Range Interpretation Comments HEMOGLOBIN A1c (test code = 55072) 8.3 % [id number] 00:00:00 Test Item Value Reference Range Interpretation Comments TSH (test code = 2821) 1.1 UIU/ML [id number] 00:00:00 Test Item Value Reference Range Interpretation Comments TSH (test code = 2821) 1.1 UIU/ML [id number] 00:00:00 Test Item Value Reference Range Interpretation Comments TSH (test code = 2821) 1.1 UIU/ML COMPREHENSIVE METABOLIC [id number] 00:00:00 Test Item Value Reference Range Interpretation Comments GLUCOSE (test code = 2217) 196 MG/DL BUN (test code = 2208) 8 MG/DL CREATININE (test code = 2214) 0.48 MG/DL eGFR AMER. (test code 141 ML/MIN/1.73 = 97969) eGFR NON- AMER. (test 122 ML/MIN/1.73 code = 93074) CALCULATED BUN/CREAT (test 17 RATIO code = [...] code = 2219) 7 U/L COMPREHENSIVE METABOLIC [id number] 00:00:00 Test Item Value Reference Range Interpretation Comments GLUCOSE (test code = 2217) 196 MG/DL BUN (test code = 2208) 8 MG/DL CREATININE (test code = 2214) 0.48 MG/DL eGFR AMER. (test code 141 ML/MIN/1.73 = 53492) eGFR NON- AMER. (test 122 ML/MIN/1.73 code = 15144) CALCULATED BUN/CREAT (test 17 RATIO code = [...] (test code = 2219) 7 U/L LIPID [id number] 00:00:00 Test Item Value Reference Range Interpretation Comments CHOLESTEROL (test code = 2210) 289 MG/DL TRIGLYCERIDES (test code = 2232) 1092 MG/DL HDL CHOLESTEROL (test code = 2220) 41 MG/DL CALCULATED LDL CHOL (test code = NOTE MG/DL 2237) LIPID [id number] 00:00:00 Test Item Value Reference Range Interpretation Comments CHOLESTEROL (test code = 2210) 289 MG/DL TRIGLYCERIDES (test code = 2232) 1092 MG/DL HDL CHOLESTEROL (test code = 2220) 41 MG/DL CALCULATED LDL CHOL (test code = NOTE MG/DL 2237) CBC W/AUTO [id number] 00:00:00 Test Item Value Reference Range Interpretation [...] (test code = 1016) (NOTE) CBC W/AUTO [id number] 00:00:00 Test Item Value Reference Range Interpretation [...] (test code = 1016) (NOTE) CBC W/AUTO [id number] 00:00:00 Test Item Value Reference Range Interpretation [...] COMMENTS (test code = 1016) (NOTE) HEMOGLOBIN [id number] 00:00:00 Test Item Value Reference Range Interpretation Comments HEMOGLOBIN A1c (test code = 10816) 8.3 % HEMOGLOBIN [id number] 00:00:00 Test Item Value Reference Range Interpretation Comments HEMOGLOBIN A1c (test code = 83437) 8.3 % HEMOGLOBIN [id number] 00:00:00 Test Item Value Reference Range Interpretation Comments HEMOGLOBIN A1c (test code = 00407) 8.3 % [id number] 00:00:00 Test Item Value Reference Range Interpretation Comments TSH (test code = 2821) 1.1 UIU/ML [id number] 00:00:00 Test Item Value Reference Range Interpretation Comments TSH (test code = 2821) 1.1 UIU/ML [id number] 00:00:00 Test Item Value Reference Range Interpretation Comments TSH (test code = 2821) 1.1 UIU/ML COMPREHENSIVE METABOLIC [id number] 00:00:00 Test Item Value Reference Range Interpretation Comments GLUCOSE (test code = 2217) 196 MG/DL BUN (test code = 2208) 8 MG/DL CREATININE (test code = 2214) 0.48 MG/DL eGFR AMER. (test code 141 ML/MIN/1.73 = 06937) eGFR NON- AMER. (test 122 ML/MIN/1.73 code = 71271) CALCULATED BUN/CREAT (test 17 RATIO code = [...] code = 2219) 7 U/L COMPREHENSIVE METABOLIC [id number] 00:00:00 Test Item Value Reference Range Interpretation Comments GLUCOSE (test code = 2217) 196 MG/DL BUN (test code = 2208) 8 MG/DL CREATININE (test code = 2214) 0.48 MG/DL eGFR AMER. (test code 141 ML/MIN/1.73 = 64127) eGFR NON- AMER. (test 122 ML/MIN/1.73 code = 92929) CALCULATED BUN/CREAT (test 17 RATIO code = [...] (test code = 2219) 7 U/L LIPID [id number] 00:00:00 Test Item Value Reference Range Interpretation Comments CHOLESTEROL (test code = 2210) 289 MG/DL TRIGLYCERIDES (test code = 2232) 1092 MG/DL HDL CHOLESTEROL (test code = 2220) 41 MG/DL CALCULATED LDL CHOL (test code = NOTE MG/DL 2237) LIPID [id number] 00:00:00 Test Item Value Reference Range Interpretation Comments CHOLESTEROL (test code = 2210) 289 MG/DL TRIGLYCERIDES (test code = 2232) 1092 MG/DL HDL CHOLESTEROL (test code = 2220) 41 MG/DL CALCULATED LDL CHOL (test code = NOTE MG/DL 2237)
--- NOTE | 2022-10-28 18:25 | ER ---
Nurse's Notes [facility] Name: Effie Crouch Age: 47 yrs Sex: Female : 1975 Arrival Date: 10/28/2022 Time: 17:16 Bed DIS3 Private MD: Diagnosis: Essential (primary) hypertension Presentation: 10/28 17:30 Chief complaint: Patient states: my BP has been high since yesterday, her doctor could iw not see her today, she takes metoprolol, 50 mg daily, her BP was 178 systolic and the this morning it was 156 and then 167 systolic, + dizziness. Coronavirus screen: At this time, the client does not indicate any symptoms associated with coronavirus-19. Ebola Screen: Patient negative for fever greater than or equal to 101.5 degrees Fahrenheit, and additional compatible Ebola Virus Disease symptoms Patient denies exposure to infectious person. Patient denies travel to an Ebola-affected area in the 21 days before illness onset. No symptoms or risks identified at this time. Initial Sepsis Screen: Does the patient meet any 2 criteria? No. Patient's initial sepsis screen is negative. Does the patient have a suspected source of infection? No. Patient's initial sepsis screen is negative. Risk Assessment: Do you want to hurt yourself or someone else? Patient reports no desire to harm self or others. Onset of symptoms was October 28, 2022. 17:30 Method Of Arrival: Ambulatory iw 17:30 Acuity: MARNI 3 iw Triage Assessment: 17:45 General: Appears in no apparent distress. Behavior is calm, cooperative. iw Historical: - Allergies: 17:32 No Known Allergies; iw - PMHx: 17:32 Diabetes - NIDDM; Hypertension; blood transfusion; iw - PSHx: 17:32 ; hysterectomy; Cholecystectomy; iw - Social history:: Smoking status: Patient reports the use of cigarette tobacco products. Screenin:34 [facility] ED Fall Risk Assessment (Adult) History of falling in the last 3 months, iw including since admission Score/Fall Risk Level 0 - 2 = Low Risk. Abuse screen: Denies threats or abuse. Denies injuries from another. Nutritional screening: No deficits noted. Tuberculosis screening: No symptoms or risk factors identified. Assessment: 17:30 General: Appears in no apparent distress. Behavior is calm, cooperative. Pain: Denies iw pain. Neuro: Level of Consciousness is awake, alert, obeys commands, Oriented to person, place, time, situation, Moves all extremities. Full function. Neuro: Denies blurred vision dizziness. Cardiovascular: Denies chest pain, lightheadedness, shortness of breath, Capillary refill < 3 seconds in bilateral fingers Patient's skin is warm and dry. Respiratory: Respiratory effort is even, unlabored, Respiratory pattern is regular, symmetrical. Derm: Skin is intact, is healthy with good turgor. Musculoskeletal: Range of motion: intact in all extremities. Vital Signs: 17:30 BP 133 / 84; Pulse 95; Resp 16; Temp 96.7; Pulse Ox 100% on R/A; Weight 65.32 kg; iw Height 5 ft. 2 in. ; Pain 0/10; 17:30 Body Mass Index 26.34 (65.32 kg, 157.48 cm) iw 17:30 Pain Scale: Adult iw ED Course: 17:19 Patient arrived in ED. im 17:20 Claribel De Leon MD is Attending Physician. cp3 17:32 Triage completed. iw 17:33 Arm band placed on. iw 18:21 Pauly Vasques FNP-C is PHCP. kb 18:30 No provider procedures requiring assistance completed. Patient did not have IV access iw during this emergency room visit. 18:33 Valentine Lan, RN is Primary Nurse. iw Administered Medications: No medications were administered Medication: 17:45 VIS not applicable for this client. iw Outcome: 18:24 Discharge ordered by . kb 18:33 Patient left the ED. iw Signatures: Pauly Vasques FNP-C FNP-Claribel Gomes MD MD cp3 Valentine Lan, RN RN iw Kitty Schneider im
--- NOTE | 2022-10-28 18:25 | EDPHYS ---
Physician Documentation [facility] Name: Effie Crouch Age: 47 yrs Sex: Female : 1975 Arrival Date: 10/28/2022 Time: 17:16 Bed DIS3 Private MD: ED Physician Claribel De Leon HPI: 10/28 18:49 This 47 yrs old Female presents to ER via Ambulatory with complaints of High kb Blood Pressure. 18:49 The patient has elevated blood pressure and discovered this at home, with a home kb device. Onset: The symptoms/episode began/occurred yesterday. Associated signs and symptoms: The patient has no apparent associated signs or symptoms. Severity of symptoms: At its worst the blood pressure was moderate, in the emergency department the blood pressure is improved. The patient has not experienced similar symptoms in the past. The patient has not recently seen a physician. Pt reports her BP has been high since yesterday. States she uses a wrist monitor and it read 178 systolic today. States she feels ok, but she wanted to get checked out because the bp was so high. Historical: - Allergies: 17:32 No Known Allergies; iw - PMHx: 17:32 Diabetes - NIDDM; Hypertension; blood transfusion; iw - PSHx: 17:32 ; hysterectomy; Cholecystectomy; iw - Social history:: Smoking status: Patient reports the use of cigarette tobacco products. ROS: 18:49 Constitutional: Negative for fever, chills, and weight loss. kb 18:49 All other systems are negative. Exam: 18:49 Constitutional: This is a well developed, well nourished patient who is awake, alert, kb and in no acute distress. Head/Face: Normocephalic, atraumatic. ENT: Moist Mucous membranes Respiratory: Respirations even and unlabored. No increased work of breathing. Talking in full sentences Skin: Warm, dry with normal turgor. Normal color. MS/ Extremity: Pulses equal, no cyanosis. Neurovascular intact. Full, normal range of motion. Neuro: Awake and alert, GCS 15, oriented to person, place, time, and situation. Moves all extremities. Normal gait. Vital Signs: 17:30 BP 133 / 84; Pulse 95; Resp 16; Temp 96.7; Pulse Ox 100% on R/A; Weight 65.32 kg; iw Height 5 ft. 2 in. ; Pain 0/10; 17:30 Body Mass Index 26.34 (65.32 kg, 157.48 cm) iw 17:30 Pain Scale: Adult iw MDM: 18:08 Patient medically screened. kb 18:49 Differential diagnosis: hypertensive crisis, primary hypertension. Data reviewed: vital kb signs, nurses notes. Test considered but Not performed: EKG: EKG considered, but pt decided to leave prior to having any diagnostic testing. Labs: cbc, bmp and trop considered, but pt elected to leave prior to diagnostic tests.. Counseling: I had a detailed discussion with the patient and/or guardian regarding the historical points, exam findings, and any diagnostic results supporting the discharge/admit diagnosis, the need for outpatient follow up, a family practitioner, to return to the emergency department if symptoms worsen or persist or if there are any questions or concerns that arise at home. ED course: Pt states she feels fine and her blood pressure is reading more normally now so she wants to go home. Educated on return precautions. Administered Medications: No medications were administered Disposition Summary: 10/28/22 18:24 Discharge Ordered Location: Home kb Condition: Stable kb Diagnosis - Essential (primary) hypertension kb Followup: kb - With: Emergency Department - When: As needed - Reason: Worsening of condition Followup: kb - With: Private Physician - When: 2 - 3 days - Reason: Recheck today's complaints, Continuance of care, Re-evaluation by your physician Discharge Instructions: - Discharge Summary Sheet kb - Hypertension, Adult, Uqid-si-Mqtl kb - How to Take Your Blood Pressure, [id number] kb Forms: - Medication Reconciliation Form kb - Thank You Letter kb - Antibiotic Education kb - Prescription Opioid Use kb - Patient Portal Instructions kb - Leadership Thank You Letter kb Signatures: Pauly Vasques, BOO-C [employer] SPECIALIST-Emmettb Valentine Lan, RN RN iw Corrections: (The following items were deleted from the chart) 18:52 18:49 ED course: Pt states she feels fine and her blood pressure is reading more kb normally now so she wants to go home. . kb
[2022-10-28 18:43] VITALS: BP 133/84; TEMP 96.7; O2SAT 100
== END 2022-10-28 18:33 | disposition home or self-care (01) ==
LOC: ER 17:16
DX: I10 Essential (primary) hypertension (principal); E11.9 Type 2 diabetes mellitus without complications; Z90.49 Acquired absence of other specified parts of digestive tract; F17.210 Nicotine dependence, cigarettes, uncomplicated
CPT/HCPCS: 99281

== ENCOUNTER → 2023-02-21 | Emergency (ER) | payer OTHER ==
[~2023-02-21] MED LIST: ACETAMINOPHEN 325 MG TABLET ONE; NA CHLORIDE 0.9% 1,000 ML ONE
--- OUTSIDE RECORDS SUMMARY | 2023-02-21 11:02 | XMS REPORT | Continuity of Care Document ---
Author Name Unknown Address [address] [facility] [place] [address] [facility] thconnect Address [address] [facility] [address] [place] [address] Care Team Providers Care Recreation Attendant Supervisor Name Role Phone Jenny HENRY, [facility] Primary Care Physician [phone] MARIA VICTORIA BEAN Attending Clinician Unavail able Sury Choudhary Attending Clinician Unava ilable Maria Victoria Mckenna Attending Clinician + SURY SANCHES Attending Clinician Unavailab le Doctor Unassigned, [place] Attending Clinician U navailable Payers Payer Name Policy Type Policy Number Effective Date Expirati on Date Source Problems Condition Name Condition Details Condition Category Status Onset Date Resolution Date Last Treatment Date Treating Clinician Comments Source History of herpes genitalis History of herpes genitalis Disease Active 08-16 00:00: 00 [facility] Encounter for surveillan ce of contracept chalino, unspecifie d contracept desean Encounter for surveillan ce of contracept chalino, unspecifie d contracept desean Disease Active 03-02 00:00: 00 [facility] History of hysterecto my History of hysterecto my Disease Active 03-02 00:00: 00 [facility] Vaginal itching Vaginal itching Disease Active 03-02 00:00: 00 [facility] History of hypertensi on History of hypertensi on Disease Active 03-02 00:00: 00 [facility] Family history of diabetes mellitus Family history of diabetes mellitus Disease Active 03-02 00:00: 00 [facility] Class 1 obesity due to excess calories with body mass index (BMI) of 32.0 to 32.9 in adult, unspecifie d whether serious comorbidit y present Class 1 obesity due to excess calories with body mass index (BMI) of 32.0 to 32.9 in adult, unspecifie d whether serious comorbidit y present Disease Active 03-02 00:00: 00 [facility] Well woman exam Well woman exam Disease Active 2018-02 00:00: 00 [facility] S/P KEILA-BSO S/P KEILA-BSO Disease Active 07-11 00:00: 00 [facility] Postoperat desean state Postoperat desean state Disease Active 07-10 00:00: 00 [facility] Symptomati c anemia Symptomati c anemia Disease Active 03-13 00:00: 00 [facility] ASCUS with positive high risk HPV cervical ASCUS with positive high risk HPV cervical Disease Active 2015-02 00:00: 00 [facility] Herpes, vulvar Herpes, vulvar Disease Active 2015-02 0 00:00: 00 [facility] Endometrio sis of uterus Endometrio sis of uterus Disease Active 06-20 00:00: 00 [facility] Adenomyosi s Adenomyosi s Disease Active 06-20 00:00: 00 [facility] ASCUS with 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 colpo 05/31/2014- negative bx#1 FU Pap ASCUScolp o 12/26/2015 [facility] Diabetes Diabetes Disease Active 03-23 00:00: 00 [facility] BMI 32.0-32.9, adult BMI 32.0-32.9, adult Disease Active 03-23 00:00: 00 Overview: Formattin g of this note might be different from the original. ICD10 Diagnosis Term [employer]uel [employer] Utility [facility] History of tubal ligation History of tubal ligation Disease Active 03-23 00:00: 00 [facility] Rubella immune status not known Rubella immune status not known Disease Active 03-23 00:00: 00 Overview: Formattin g of this note might be different from the original. Post BTL [facility] Allergies, Adverse Reactions, Alerts Allergy Name Allergy Type Status Severity Reaction(s) Onset Date Inactive Date Treating Clinician Comments Source NO KNOWN ALLERGIE S Drug Class Active [facility] Social History Social Habit Start Date Stop Date Quantity Comments Source History of tobacco use Cigarette Smoker [facility] Alcohol intake 2021-08-16 00:00:00 2021-08-16 00:00:00 0 /d [facility] Cigarettes smoked current (pack per day) - Reported 2019-02-03 00:00:00 2019-02-03 00:00:00 [facility] Tobacco use and exposure 2019-02-03 00:00:00 2019-02-03 00:00:00 Smokeless tobacco non-user [facility] Cigarette pack-years 2019-02-03 00:00:00 2019-02-03 00:00:00 [facility] Tobacco Comment 2014-03-23 00:00:00 2014-03-23 00:00:00 smokes 7 x per day [facility] Sex Assigned At 1975 00:00:00 1975 00:00:00 [facility] Smoking Status Start Date Stop Date Source Smokes tobacco daily 2019-02-03 00:00:00 [facility] Medications Ordered Medication Name Filled Medication Name Start Date Stop Date Current Medication? Ordering Clinician Indication Dosage Frequency Signature (SIG) Comments Components Source TAKE 1 TABLET BY MOUTH TWICE DAILY FOR 5 DAYS 10-17 00:00: 00 No TAKE 1 TABLET BY MOUTH TWICE DAILY FOR 5 DAYS 2022-0 8-25 00:00: 00 No acyclovir 400 mg tablet 2021-0 818 00:00: 00 Yes [id number] 400mg Take 1 tablet by mouth in the morning and 1 tablet in the evening. [facility] acyclovir 400 mg tablet 10-10 00:00: 00 Yes [id number] 400mg Take 1 tablet by mouth in the morning and 1 tablet in the evening. [facility] lisinopril 5 mg tablet 0 09-12 00:00: 00 No 1mg lisinopril 5 mg tablet 0 09-12 00:00: 00 No 1mg ondansetron 4 mg disintegrat ing tablet 0 08-30 00:00: 00 No 1mg Dose Unknown 0 08-30 00:00: 00 No Dose Unknown 0 08-30 00:00: 00 No Dose Unknown 0 08-30 00:00: 00 No ondansetron 4 mg disintegrat ing tablet 0 08-30 00:00: 00 No 1mg Dose Unknown 0 08-30 00:00: 00 No Dose Unknown 0 08-30 00:00: 00 No Dose Unknown 0 08-30 00:00: 00 No ondansetron 4 mg disintegrat ing tablet 08-30 00:00: 00 No 1mg Dose Unknown 0 08-30 00:00: 00 No Dose Unknown 0 08-30 00:00: 00 No Dose Unknown 0 08-30 00:00: 00 No Dose Unknown 0 08-28 00:00: 00 No Dose Unknown 0 08-28 00:00: 00 No Dose Unknown 0 08-28 00:00: 00 No Victoza 3-Noah 0.6 mg/0.1 mL (18 mg/3 mL) subcutaneou s pen injector 08-07 00:00: 00 No (18 mg/3 mL) ergocalcife rol (vitamin D2) 1,250 mcg (50,000 unit) capsule 08-07 00:00: 00 No 1(50,00 0 unit) Victoza 3-Noah 0.6 mg/0.1 mL (18 mg/3 mL) subcutaneou s pen injector 08-07 00:00: 00 No (18 mg/3 mL) ergocalcife rol (vitamin D2) 1,250 mcg (50,000 unit) capsule 08-07 00:00: 00 No 1(50,00 0 unit) Victoza 3-Noah 0.6 mg/0.1 mL (18 mg/3 mL) subcutaneou s pen injector 08-07 00:00: 00 No (18 mg/3 mL) ergocalcife rol (vitamin D2) 1,250 mcg (50,000 unit) capsule 08-07 00:00: 00 No 1(50,00 0 unit) Novolin 70/30 U-100 Insulin 100 unit/mL subcutaneou s suspension 08-02 00:00: 00 No unit/mL (70-30) Novolin 70/30 U-100 Insulin 100 unit/mL subcutaneou s suspension 08-02 00:00: 00 No unit/mL (70-30) lisinopril 5 mg tablet 08-02 00:00: 00 No 1mg metformin 1,000 mg tablet 08-02 00:00: 00 No 1mg gabapentin 300 mg capsule 08-02 00:00: 00 No 1mg Novolin 70/30 U-100 Insulin 100 unit/mL subcutaneou s suspension 08-02 00:00: 00 No unit/mL (70-30) Novolin 70/30 U-100 Insulin 100 unit/mL subcutaneou s suspension 08-02 00:00: 00 No unit/mL (70-30) lisinopril 5 mg tablet 08-02 00:00: 00 No 1mg metformin 1,000 mg tablet 08-02 00:00: 00 No 1mg gabapentin 300 mg capsule 08-02 00:00: 00 No 1mg Novolin 70/30 U-100 Insulin 100 unit/mL subcutaneou s suspension 08-02 00:00: 00 No unit/mL (70-30) lisinopril 5 mg tablet 08-02 00:00: 00 No 1mg metformin 1,000 mg tablet 08-02 00:00: 00 No 1mg gabapentin 300 mg capsule 08-02 00:00: 00 No 1mg Novolin 70/30 U-100 Insulin 100 unit/mL subcutaneou s suspension 03-22 00:00: 00 No unit/mL (70-30) metformin 1,000 mg tablet 03-22 00:00: 00 No 1mg lovastatin 40 mg tablet 03-22 00:00: 00 No 1mg Dose Unknown 03-22 00:00: 00 No Novolin 70/30 U-100 Insulin 100 unit/mL subcutaneou s suspension 03-22 00:00: 00 No unit/mL (70-30) metformin 1,000 mg tablet 03-22 00:00: 00 No 1mg lovastatin 40 mg tablet 03-22 00:00: 00 No 1mg Dose Unknown 03-22 00:00: 00 No Novolin 70/30 U-100 Insulin 100 unit/mL subcutaneou s suspension 03-22 00:00: 00 No unit/mL (70-30) metformin 1,000 mg tablet 03-22 00:00: 00 No 1mg lovastatin 40 mg tablet 03-22 00:00: 00 No 1mg fenofibrate micronized 130 mg capsule 03-22 00:00: 00 No 1mg Novolin 70/30 U-100 Insulin 100 unit/mL subcutaneou s suspension 11-12 00:00: 00 No unit/mL (70-30) Novolin 70/30 U-100 Insulin 100 unit/mL subcutaneou s suspension 11-12 00:00: 00 No unit/mL (70-30) Novolin 70/30 U-100 Insulin 100 unit/mL subcutaneou s suspension 11-12 00:00: 00 No unit/mL (70-30) Novolin 70/30 U-100 Insulin 100 unit/mL subcutaneou s suspension 09-20 00:00: 00 No unit/mL (70-30) prednisone 5 mg tablet 09-20 00:00: 00 No 1mg metformin 1,000 mg tablet 09-20 00:00: 00 No 1mg lovastatin 40 mg tablet 09-20 00:00: 00 No 1mg Novolin 70/30 U-100 Insulin 100 unit/mL subcutaneou s suspension 09-20 00:00: 00 No unit/mL (70-30) prednisone 5 mg tablet 09-20 00:00: 00 No 1mg metformin 1,000 mg tablet 09-20 00:00: 00 No 1mg lovastatin 40 mg tablet 09-20 00:00: 00 No 1mg Novolin 70/30 U-100 Insulin 100 unit/mL subcutaneou s suspension 09-20 00:00: 00 No unit/mL (70-30) prednisone 5 mg tablet 09-20 00:00: 00 No 1mg metformin 1,000 mg tablet 09-20 00:00: 00 No 1mg lovastatin 40 mg tablet 09-20 00:00: 00 No 1mg Novolin 70/30 U-100 Insulin 100 unit/mL subcutaneou s suspension 07-30 00:00: 00 No unit/mL (70-30) metformin 1,000 mg tablet 07-30 00:00: 00 No 1mg fenofibrate micronized 130 mg capsule 07-30 00:00: 00 No 1mg Novolin 70/30 U-100 Insulin 100 unit/mL subcutaneou s suspension 07-30 00:00: 00 No unit/mL (70-30) metformin 1,000 mg tablet 07-30 00:00: 00 No 1mg fenofibrate micronized 130 mg capsule 07-30 00:00: 00 No 1mg Novolin 70/30 U-100 Insulin 100 unit/mL subcutaneou s suspension 07-30 00:00: 00 No unit/mL (70-30) metformin 1,000 mg tablet 07-30 00:00: 00 No 1mg fenofibrate micronized 130 mg capsule 07-30 00:00: 00 No 1mg lovastatin 40 mg tablet 07-28 00:00: 00 No 1mg lovastatin 40 mg tablet 07-28 00:00: 00 No 1mg lovastatin 40 mg tablet 07-28 00:00: 00 No 1mg Novolin 70/30 U-100 Insulin 100 unit/mL subcutaneou s suspension 07-21 00:00: 00 No unit/mL (70-30) Novolin 70/30 U-100 Insulin 100 unit/mL subcutaneou s suspension 07-21 00:00: 00 No unit/mL (70-30) metformin 1,000 mg tablet 07-21 00:00: 00 No 1mg fenofibrate micronized 130 mg capsule 07-21 00:00: 00 No 1mg Novolin 70/30 U-100 Insulin 100 unit/mL subcutaneou s suspension 07-21 00:00: 00 No unit/mL (70-30) Novolin 70/30 U-100 Insulin 100 unit/mL subcutaneou s suspension 07-21 00:00: 00 No unit/mL (70-30) metformin 1,000 mg tablet 07-21 00:00: 00 No 1mg fenofibrate micronized 130 mg capsule 07-21 00:00: 00 No 1mg Novolin 70/30 U-100 Insulin 100 unit/mL subcutaneou s suspension 07-21 00:00: 00 No unit/mL (70-30) Novolin 70/30 U-100 Insulin 100 unit/mL subcutaneou s suspension 07-21 00:00: 00 No unit/mL (70-30) metformin 1,000 mg tablet 07-21 00:00: 00 No 1mg fenofibrate micronized 130 mg capsule 07-21 00:00: 00 No 1mg metformin 1,000 mg tablet 06-15 00:00: 00 No 1mg metformin 1,000 mg tablet 06-15 00:00: 00 No 1mg metformin 1,000 mg tablet 4-23 00:00: 00 No 1mg metformin 1,000 mg tablet 2-16 00:00: 00 No 1mg metformin 1,000 mg tablet 2-16 00:00: 00 No 1mg metformin 1,000 mg tablet 2-16 00:00: 00 No 1mg Novolin 70/30 U-100 Insulin 100 unit/mL subcutaneou s suspension 2-12 00:00: 00 No unit/mL (70-30) lisinopril 5 mg tablet 2-12 00:00: 00 No 1mg metformin 500 mg tablet 2-12 00:00: 00 No 1mg Dose Unknown 2- 00:00: 00 No Novolin 70/30 U-100 Insulin 100 unit/mL subcutaneou s suspension 2- 00:00: 00 No unit/mL (70-30) lisinopril 5 mg tablet 2-12 00:00: 00 No 1mg metformin 500 mg tablet 2-12 00:00: 00 No 1mg fenofibrate micronized 130 mg capsule 2-12 00:00: 00 No 1mg Novolin 70/30 U-100 Insulin 100 unit/mL subcutaneou s suspension 2- 00:00: 00 No unit/mL (70-30) lisinopril 5 mg tablet 2-12 00:00: 00 No 1mg metformin 500 mg tablet 2-12 00:00: 00 No 1mg Dose Unknown 2-12 00:00: 00 No fenofibrate micronized 130 mg capsule 2019-02 2- 00:00: 00 No 1mg fenofibrate micronized 130 mg capsule 2019-02 2- 00:00: 00 No 1mg fenofibrate micronized 130 mg capsule 2019-02 2- 00:00: 00 No 1mg Novolin 70/30 U-100 Insulin 100 unit/mL subcutaneou s suspension 2019-02 00:00: 00 No unit/mL (70-30) metformin 500 mg tablet 2019-02- 00:00: 00 No 1mg hydroxyzine HCl 25 mg tablet 2019-02 00:00: 00 No 12mg Novolin 70/30 U-100 Insulin 100 unit/mL subcutaneou s suspension 2019-02 00:00: 00 No unit/mL (70-30) metformin 500 mg tablet 2019-02 00:00: 00 No 1mg hydroxyzine HCl 25 mg tablet 2019-02 00:00: 00 No 12mg Novolin 70/30 U-100 Insulin 100 unit/mL subcutaneou s suspension 2019-02 00:00: 00 No unit/mL (70-30) metformin 500 mg tablet 2019-02 00:00: 00 No 1mg hydroxyzine HCl 25 mg tablet 2019-02 00:00: 00 No 12mg metformin 500 mg tablet 2019-02 00:00: 00 No 1mg metformin 500 mg tablet 2019-02 00:00: 00 No 1mg metformin 500 mg tablet 2019-02 00:00: 00 No 1mg Novolin 70/30 U-100 Insulin 100 unit/mL subcutaneou s suspension 07-27 00:00: 00 No unit/mL (70-30) lisinopril 5 mg tablet 07-27 00:00: 00 No 1mg metformin 500 mg tablet 07-27 00:00: 00 No 1mg lovastatin 40 mg tablet 07-27 00:00: 00 No 1mg Novolin 70/30 U-100 Insulin 100 unit/mL subcutaneou s suspension 07-27 00:00: 00 No unit/mL (70-30) lisinopril 5 mg tablet 07-27 00:00: 00 No 1mg metformin 500 mg tablet 07-27 00:00: 00 No 1mg lovastatin 40 mg tablet 07-27 00:00: 00 No 1mg Novolin 70/30 U-100 Insulin 100 unit/mL subcutaneou s suspension 07-27 00:00: 00 No unit/mL (70-30) lisinopril 5 mg tablet 07-27 00:00: 00 No 1mg metformin 500 mg tablet 07-27 00:00: 00 No 1mg lovastatin 40 mg tablet 6-04 00:00: 00 No 1mg Novolin 70/30 U-100 Insulin 100 unit/mL subcutaneou s suspension 05-19 00:00: 00 No unit/mL (70-30) lisinopril 5 mg tablet 05-19 00:00: 00 No 1mg lisinopril 5 mg tablet 05-19 00:00: 00 No 1mg metformin ER 500 mg tablet,exte nded release 24hr (osmotic) 05-19 00:00: 00 No 2mg lovastatin 40 mg tablet 05-19 00:00: 00 No 1mg Novolin 70/30 U-100 Insulin 100 unit/mL subcutaneou s suspension 05-19 00:00: 00 No unit/mL (70-30) lisinopril 5 mg tablet 05-19 00:00: 00 No 1mg lisinopril 5 mg tablet 05-19 00:00: 00 No 1mg metformin ER 500 mg tablet,exte nded release 24hr (osmotic) 05-19 00:00: 00 No 2mg lovastatin 40 mg tablet 05-19 00:00: 00 No 1mg Novolin 70/30 U-100 Insulin 100 unit/mL subcutaneou s suspension 05-19 00:00: 00 No unit/mL (70-30) lisinopril 5 mg tablet 05-19 00:00: 00 No 1mg lisinopril 5 mg tablet 05-19 00:00: 00 No 1mg metformin ER 500 mg tablet,exte nded release 24hr (osmotic) 05-19 00:00: 00 No 2mg lovastatin 40 mg tablet 05-19 00:00: 00 No 1mg metformin ER 500 mg tablet,exte nded release 24hr (osmotic) 04-05 00:00: 00 No 2mg metformin ER 500 mg tablet,exte nded release 24hr (osmotic) 2 00:00: 00 No 2mg metformin ER 500 mg tablet,exte nded release 24hr (osmotic) 2 00:00: 00 No 2mg insulin NPH hum/reg insulin hm (INSULIN 70/30 SC) 2018-02 09:33: 13 Yes inject under the skin. [facility] metformin HCl (METFORMIN ORAL) 2018-02 09:33: 13 Yes Take by mouth. [facility] insulin NPH hum/reg insulin hm (INSULIN 70/30 SC) 2018-02 09:33: 13 Yes inject under the skin. [facility] metformin HCl (METFORMIN ORAL) 2018-02 09:33: 13 Yes Take by mouth. [facility] Novolin 70/30 U-100 Insulin 100 unit/mL subcutaneou s suspension 2018-02 00:00: 00 No unit/mL (70-30) lisinopril 5 mg tablet 2018-02 00:00: 00 No 1mg metformin ER 500 mg tablet,exte nded release 24hr (osmotic) 2018-02 00:00: 00 No 2mg Novolin 70/30 U-100 Insulin 100 unit/mL subcutaneou s suspension 2018-02 00:00: 00 No unit/mL (70-30) lisinopril 5 mg tablet 2018-02 00:00: 00 No 1mg metformin ER 500 mg tablet,exte nded release 24hr (osmotic) 2018-02 00:00: 00 No 2mg lovastatin 40 mg tablet 2018-02 00:00: 00 No 1mg lovastatin 40 mg tablet 2018-02 00:00: 00 No 1mg Novolin 70/30 U-100 Insulin 100 unit/mL subcutaneou s suspension 2018-02 00:00: 00 No unit/mL (70-30) lisinopril 5 mg tablet 2018-02 00:00: 00 No 1mg metformin ER 500 mg tablet,exte nded release 24hr (osmotic) 2018-02 00:00: 00 No 2mg lovastatin 40 mg tablet 2018-02 00:00: 00 No 1mg lisinopril 5 mg tablet 2018-02 0 00:00: 00 No 1mg lisinopril 5 mg tablet 2018-02 0-08 00:00: 00 No 1mg lisinopril 5 mg tablet 2018-02 008 00:00: 00 No 1mg lisinopril 5 mg tablet 8 00:00: 00 No 1mg lisinopril 5 mg tablet 8 00:00: 00 No 1mg lisinopril 5 mg tablet 8 00:00: 00 No 1mg citalopram 10 mg tablet 09-22 00:00: 00 No 1mg metformin ER 500 mg tablet,exte nded release 24hr (osmotic) 09-22 00:00: 00 No 2mg lovastatin 40 mg tablet 09-22 00:00: 00 No 1mg citalopram 10 mg tablet 09-22 00:00: 00 No 1mg metformin ER 500 mg tablet,exte nded release 24hr (osmotic) 09-22 00:00: 00 No 2mg lovastatin 40 mg tablet 09-22 00:00: 00 No 1mg citalopram 10 mg tablet 09-22 00:00: 00 No 1mg metformin ER 500 mg tablet,exte nded release 24hr (osmotic) 09-22 00:00: 00 No 2mg lovastatin 40 mg tablet 09-22 00:00: 00 No 1mg lovastatin 40 mg tablet 3 00:00: 00 No 1mg lovastatin 40 mg tablet 3 00:00: 00 No 1mg lovastatin 40 mg tablet 311 00:00: 00 No 1mg bupropion HCl SR 150 mg tablet,12 hr sustained-r elease 2017-02 00:00: 00 No 1mg lovastatin 40 mg tablet 2017-02 00:00: 00 No 1mg bupropion HCl SR 150 mg tablet,12 hr sustained-r elease 2017-02 00:00: 00 No 1mg lovastatin 40 mg tablet 2017-02 00:00: 00 No 1mg bupropion HCl SR 150 mg tablet,12 hr sustained-r elease 2017-02 00:00: 00 No 1mg lovastatin 40 mg tablet 2017-02 00:00: 00 No 1mg Levemir U-100 Insulin 100 unit/mL subcutaneou s solution 2017-02 0 00:00: 00 No unit/mL Levemir U-100 Insulin 100 unit/mL subcutaneou s solution 2017-02 0 00:00: 00 No unit/mL Levemir U-100 Insulin 100 unit/mL subcutaneou s solution 2017-02 00:00: 00 No unit/mL Levemir U-100 Insulin 100 unit/mL subcutaneou s solution 2017-02 00:00: 00 No unit/mL Levemir U-100 Insulin 100 unit/mL subcutaneou s solution 2017-02 0 00:00: 00 No unit/mL Levemir U-100 Insulin 100 unit/mL subcutaneou s solution 2017-02 00:00: 00 No unit/mL bupropion HCl SR 150 mg tablet,12 hr sustained-r elease 2017-02 0 00:00: 00 No 1mg bupropion HCl SR 150 mg tablet,12 hr sustained-r elease 2017-02 0 00:00: 00 No 1mg bupropion HCl SR 150 mg tablet,12 hr sustained-r elease 2017-02 0 00:00: 00 No 1mg Levemir U-100 Insulin 100 unit/mL subcutaneou s solution 11-18 00:00: 00 No unit/mL Levemir U-100 Insulin 100 unit/mL subcutaneou s solution 11-18 00:00: 00 No unit/mL lovastatin 40 mg tablet 11-18 00:00: 00 No 1mg Levemir U-100 Insulin 100 unit/mL subcutaneou s solution 11-18 00:00: 00 No unit/mL Levemir U-100 Insulin 100 unit/mL subcutaneou s solution 11-18 00:00: 00 No unit/mL lovastatin 40 mg tablet 11-18 00:00: 00 No 1mg Levemir U-100 Insulin 100 unit/mL subcutaneou s solution 11-18 00:00: 00 No unit/mL Levemir U-100 Insulin 100 unit/mL subcutaneou s solution 11-18 00:00: 00 No unit/mL lovastatin 40 mg tablet 11-18 00:00: 00 No 1mg lovastatin 20 mg tablet 10-23 00:00: 00 No 2mg lovastatin 20 mg tablet 10-23 00:00: 00 No 2mg lovastatin 20 mg tablet 10-23 00:00: 00 No 2mg lovastatin 20 mg tablet 08-20 00:00: 00 No 2mg lovastatin 20 mg tablet 08-20 00:00: 00 No 2mg lovastatin 20 mg tablet 08-20 00:00: 00 No 2mg lovastatin 20 mg tablet 08-02 00:00: 00 No 1mg lovastatin 20 mg tablet 08-02 00:00: 00 No 1mg lovastatin 20 mg tablet 08-02 00:00: 00 No 1mg lovastatin 20 mg tablet 04-22 00:00: 00 No 1mg lovastatin 20 mg tablet 04-22 00:00: 00 No 1mg lovastatin 20 mg tablet 04-22 00:00: 00 No 1mg Levemir U-100 Insulin 100 unit/mL subcutaneou s solution 2016-02 00:00: 00 No 20unit/ mL Levemir U-100 Insulin 100 unit/mL subcutaneou s solution 2016-02 00:00: 00 No 20unit/ mL Levemir U-100 Insulin 100 unit/mL subcutaneou s solution 2016-02 00:00: 00 No 20unit/ mL lovastatin 20 mg tablet 2016-02 00:00: 00 No 1mg lovastatin 20 mg tablet 2016-02 00:00: 00 No 1mg lovastatin 20 mg tablet 2016-02 00:00: 00 No 1mg glyburide 2.5 mg tablet 08-15 00:00: 00 No 1mg glyburide 2.5 mg tablet 08-15 00:00: 00 No 1mg glyburide 2.5 mg tablet 08-15 00:00: 00 No 1mg glyburide 2.5 mg tablet 05-07 00:00: 00 No 1mg glyburide 2.5 mg tablet 05-07 00:00: 00 No 1mg glyburide 2.5 mg tablet 05-07 00:00: 00 No 1mg metformin 1,000 mg tablet 05-03 00:00: 00 No 1mg metformin 1,000 mg tablet 05-03 00:00: 00 No 1mg metformin 1,000 mg tablet 05-03 00:00: 00 No 1mg metformin 1,000 mg tablet 04-04 00:00: 00 No 1mg metformin 1,000 mg tablet 04-04 00:00: 00 No 1mg metformin 1,000 mg tablet 04-04 00:00: 00 No 1mg Vital Signs Vital Name Observation Time Observation Value Comments S ource BP Systolic 2021-11-18 15:54:00 155 mm[Hg] BP [...] /min Respiratory Rate 2020-04-06 14:11:00 17.00 /min Plan of Care Planned Activity Planned Date Details Comments Source Goal Plan of Care Note [code = 93678-4] Goal Plan of Care Note [code = 44856-9] Goal Plan of Care Note [code = 90353-4] Goal Plan of Care Note [code = 24183-5] Goal Plan of Care Note [code = 29539-3] Goal Plan of Care Note [code = 30931-6] Goal Plan of Care Note [code = 52801-9] Goal Plan of Care Note [code = 95435-7] Goal Plan of Care Note [code = 63213-2] Goal Plan of Care Note [code = 55989-0] Goal Plan of Care Note [code = 70527-8] Goal Plan of Care Note [code = 57718-3] Goal Plan of Care Note [code = 26892-5] Goal Plan of Care Note [code = 41118-7] Goal Plan of Care Note [code = 17397-9] Goal Plan of Care Note [code = 04510-5] Goal Plan of Care Note [code = 35975-9] Goal Plan of Care Note [code = 25181-6] Goal Plan of Care Note [code = 03226-6] Goal Plan of Care Note [code = 23335-2] Goal Plan of Care Note [code = 12778-0] Goal Plan of Care Note [code = 95878-3] Goal Plan of Care Note [code = 63844-9] Goal Plan of Care Note [code = 42369-8] Goal Plan of Care Note [code = 65664-4] Goal Plan of Care Note [code = 43753-0] Goal Plan of Care Note [code = 27056-5] Goal Plan of Care Note [code = 70497-8] Goal Plan of Care Note [code = 96015-4] Goal Plan of Care Note [code = 10911-7] Goal Plan of Care Note [code = 13273-6] Goal Plan of Care Note [code = 35998-8] Goal Plan of Care Note [code = 74425-7] Goal Plan of Care Note [code = 92840-0] Goal Plan of Care Note [code = 25227-8] Goal Plan of Care Note [code = 00938-5] Goal Plan of Care Note [code = 14625-5] Goal Plan of Care Note [code = 53563-3] Goal Plan of Care Note [code = 13411-2] Goal Plan of Care Note [code = 91630-7] Goal Plan of Care Note [code = 59703-9] Goal Plan of Care Note [code = 69084-8] Goal Plan of Care Note [code = 03766-1] Goal Plan of Care Note [code = 51658-8] Goal Plan of Care Note [code = 48789-1] Goal Plan of Care Note [code = 47220-0] Goal Plan of Care Note [code = 09111-2] Goal Plan of Care Note [code = 49951-1] Goal Plan of Care Note [code = 60740-5] Goal Plan of Care Note [code = 18745-5] Goal Plan of Care Note [code = 10138-3] Goal Plan of Care Note [code = 74522-7] Goal Plan of Care Note [code = 89615-2] Goal Plan of Care Note [code = 57163-6] Goal Plan of Care Note [code = 09269-9] Goal Plan of Care Note [code = 83966-7] Goal Plan of Care Note [code = 81548-8] Goal Plan of Care Note [code = 24643-7] Goal Plan of Care Note [code = 96784-0] Goal Plan of Care Note [code = 50955-0] Goal Plan of Care Note [code = 92519-9] Goal Plan of Care Note [code = 48722-7] Goal Plan of Care Note [code = 08414-4] Goal Plan of Care Note [code = 01065-4] Goal Plan of Care Note [code = 72888-3] Goal Plan of Care Note [code = 74101-0] Goal Plan of Care Note [code = 04460-7] Goal Plan of Care Note [code = 15775-2] Goal Plan of Care Note [code = 00502-7] Goal Plan of Care Note [code = 16332-1] Goal Plan of Care Note [code = 93433-5] Goal Plan of Care Note [code = 74492-9] Goal Plan of Care Note [code = 32644-4] Goal Plan of Care Note [code = 35090-8] Goal Plan of Care Note [code = 73596-7] Goal Plan of Care Note [code = 02721-9] Goal Plan of Care Note [code = 72393-3] Goal Plan of Care Note [code = 58612-0] Goal Plan of Care Note [code = 70117-5] Goal Plan of Care Note [code = 11900-2] Goal Plan of Care Note [code = 50168-0] Goal Plan of Care Note [code = 18489-8] Goal Plan of Care Note [code = 43831-6] Goal Plan of Care Note [code = 79593-9] Goal Plan of Care Note [code = 99487-7] Goal Plan of Care Note [code = 19268-7] Goal Plan of Care Note [code = 78219-3] Goal Plan of Care Note [code = 48410-3] Goal Plan of Care Note [code = 55448-8] Goal Plan of Care Note [code = 81762-0] Goal Plan of Care Note [code = 14502-5] Goal Plan of Care Note [code = 21205-4] Goal Plan of Care Note [code = 31744-7] Goal Plan of Care Note [code = 37222-6] Goal Plan of Care Note [code = 94624-4] Goal Plan of Care Note [code = 52166-2] Goal Plan of Care Note [code = 36735-7] Goal Plan of Care Note [code = 43102-1] Goal Plan of Care Note [code = 73143-2] Encounters Start Date/Time End Date/Time Encounter Type Admission Type Attending [facility] Care Facility Care Department Encounter ID Source 2022-08-22 13:00:00 2022-08-22 13:00:00 Outpatient R [facility] [id number] [facility] 2022-07-08 00:00:00 2022-07-08 00:00:00 Telephone Sury Sanches [facility] MAINTE[address]CE OF [address] SUPERVISOR [facility] MATERNAL & CHILD [facility] 1.2.840.114 350.1.13.10 4.2.7.2.686 [id number] 107 [id number] [facility] 2022-03-14 11:42:30 2022-03-14 11:42:30 Outpatient SFA SFA 0120 Jl Marie 2022-03-13 15:56:56 2022-03-13 15:56:56 Outpatient SFA SFA 0119 Jl Marie 2021-11-18 00:00:00 2021-11-18 00:00:00 Outpatient Visit [id number] 2021-10-10 00:00:00 2021-10-10 00:00:00 Telephone Sury Sanches [facility] MAINTENANCE OF WAY SUPERVISOR [facility] & CHILD [facility] 1.2.840.114 350.1.13.10 4.2.7.2.686 [id number] 107 [id number] [facility] 2021-10-08 00:00:00 2021-10-08 00:00:00 Telephone Sury Sanches [facility] MAINTENANCE OF WAY SUPERVISOR [facility] CHILD [facility] 1.2.840.114 350.1.13.10 4.2.7.2.686 [id number] 107 [id number] [facility] 2021-09-09 00:00:00 2021-09-09 00:00:00 Outpatient Visit [id number] [id number] 2021-08-30 00:00:00 2021-08-30 00:00:00 Outpatient Visit [id number] 2021-08-27 00:00:00 2021-08-27 00:00:00 Telephone Maria Victoria Bean [facility] MAINTENANCE OF WAY SUPERVISOR [facility] & CHILD [facility] 1.840.114 350.1.13.10 4.2.7.2.686 [id number] 107 [id number] [facility] 2021-08-16 09:00:00 2021-08-16 09:54:52 Outpatient R JACQUELINE SANCHESBETTY [facility] [id number] [facility] 2021-08-16 09:00:00 2021-08-16 09:54:52 Office Visit GuanakoSury [facility] MAINTENANCE OF [address] SUPERVISOR [facility] & CHILD [facility] 1.0.114 350.1.13.10 4.2.7.2.686 [id number] 107 [id number] [facility] 2021-08-16 09:00:00 2021-08-16 09:00:00 [id number] 2021-08-16 08:30:00 2021-08-16 08:30:00 Outpatient Napoleon SANCHES SURY [facility] [id number] [facility] 2021-08-16 00:00:00 2021-08-16 00:00:00 Orders Only Doctor Unassigned, [place] [facility] 1.840.114 350.1.13.10 4.2.7.2.686 [id number] [facility] 2021-07-28 00:00:00 2021-07-28 00:00:00 Refill Sury Sanches [facility] MAINTENANCE OF WAY SUPERVISOR [facility] & CHILD [facility] 1.0.114 350.1.13.10 4.2.7.2.686 [id number] 107 [id number] [facility] 2020-06-27 00:00:00 2020-06-27 00:00:00 Telephone Maria Victoria Bean [facility] MAINTENANCE OF WAY SUPERVISOR [facility] & CHILD [facility] 1.840.114 350.1.13.10 4.2.7.2.686 [id number] 107 [id number] [facility] 2020-05-22 00:00:00 2020-05-22 00:00:00 Refill Sury Sanches [facility] MAINTENANCE OF WAY SUPERVISOR [facility] & CHILD [facility] 1.2.840.114 350.1.13.10 4.2.7.2.686 [id number] 107 [id number] 2020-05-22 00:00:00 2020-05-22 00:00:00 Refill Sury Sanches [facility] MAINTENANCE OF WAY SUPERVISOR [facility] & CHILD [facility] 1.2.840.114 350.1.13.10 4.2.7.2.686 [id number] 107 [id number] [facility] 2020-05-21 00:00:00 2020-05-21 00:00:00 Refill Maria Victoria Bean [facility]CE [facility] 1.2.840.114 350.1.13.10 4.2.7.2.686 [id number] 107 [id number] 2020-05-21 00:00:00 2020-05-21 00:00:00 Refill Maria Victoria Bean [facility] MAINTENANCE OF WAY SUPERVISOR [facility] CHILD [facility] 1.2.840.114 350.1.13.10 4.2.7.2.686 [id number] 107 [id number] [facility] 2020-04-03 00:00:00 2020-04-03 00:00:00 Outpatient SURY CHOUDHURY [facility] [id number] [facility] 2020-03-06 00:00:00 2020-03-06 00:00:00 Telephone Sury Sanches [facility] MAINTENANCE OF WAY SUPERVISOR [facility] & CHILD [facility] 1.2.840.114 350.1.13.10 4.2.7.2.686 [id number] 107 [id number] 2020-03-06 00:00:00 2020-03-06 00:00:00 Telephone Sury Sanches [facility] MAINTENANCE OF WAY SUPERVISOR [facility] & CHILD [facility] 1..114 350.1.13.10 4.2.7.2.686 [id number] 107 [id number] [facility] 2020-03-02 09:22:04 2020-03-02 10:49:08 Office Visit Lexx Sanchesrhonda Napoleon [facility] MAINTENANCE OF WAY SUPERVISOR [facility] & CHILD [facility] 1.0.114 350.1.13.10 4.2.7.2.686 [id number] 107 [id number] [facility] 2020-03-02 09:30:00 2020-03-02 09:30:00 Outpatient R SURY SANCHES [facility] [id number] [facility] 2020-03-02 09:30:00 2020-03-02 09:30:00 Outpatient SURY CHOUDHURY [facility] [id number] [facility] 2020-03-02 09:00:00 2020-03-02 09:00:00 Outpatient R MARIA VICTORIA BEAN [facility] [id number] [facility] 2020-03-02 00:00:00 2020-03-02 00:00:00 Orders Only Doctor Unassigned, [place] [facility] ..114 350.1.13.10 4.2.7.2.686 [id number] [facility] 2020-02-29 00:00:00 2020-02-29 00:00:00 Telephone Maria Victoria Bean [facility] MAINTENANCE OF WAY SUPERVISOR [facility] & CHILD [facility] 1..114 350.1.13.10 4.2.7.2.686 [id number] 107 [id number] [facility] 2020-02-29 00:00:00 2020-02-29 00:00:00 Refill Maria Victoria Bean [facility] MAINTENANCE OF WAY SUPERVISOR [facility] & CHILD [facility] 1..114 350.1.13.10 4.2.7.2.686 [id number] 107 [id number] [facility] 2019-12-30 00:00:00 2019-12-30 00:00:00 Orders Only Doctor Unassigned, [place] [facility] 1.2.840.114 350.1.13.10 4.2.7.2.686 [id number] [facility] 2019-08-02 08:15:00 2019-08-02 08:15:00 Outpatient R SURY SANCHES [facility] [id number] [facility] 2019-08-02 07:45:14 2019-08-02 08:13:52 Office Visit Sury Sanches [facility] MAINTENANCE OF WAY SUPERVISOR [facility]ERNAL & CHILD [facility] 1.2.840.114 350.1.13.10 4.2.7.2.686 [id number] 107 [id number] [facility] 2019-07-29 00:00:00 2019-07-29 00:00:00 Telephone Maria Victoria Bean [facility] MAINTENANCE OF WAY SUPERVISOR [facility] & CHILD [facility] 1.2840.114 350.1.13.10 4.2.7.2.686 [id number] 107 [id number] [facility] Results Test Description Test Time Test Comments Results Result Co mments Source LIPID [id number] 06:45:27* Test Item Value Reference Range Interpretation Comme nts CHOLESTEROL (test code = 2210) 268 MG/DL <200 H TRIGLYCERIDES (test code = 2232) 532 MG/DL <150 H HDL CHOLESTEROL (test code = 2220) 45 MG/DL >39 CALC LDL CHOL (test code = 2237) (NOTE) MG/DL <100 UNABLE TO CALCUL ATE A VALID LDL CHOLESTEROL WHEN THE TRIGLYCERIDEVALUE IS GREATER THAN 400 MG/DL.UNABLE TO CALCULATE A VALID LDL CHOLESTEROL WHEN THE TRIGLYCERIDEVALUE IS GREATER THAN 400 MG/DL. NOTE: CALCULATED LDL IS BASED ON JOSTIN-MORAN METHOD WHICHINCLUDES ADJUSTABLE TRIGLYCERIDE:VLDL CHOLESTEROL RATIO.THIS FACTOR VARIES BY MEASURED TRIGLYCERIDE AND NON-HDLCHOLESTEROL CONCENTRATIONS WITH INCREASED CALCULATED LDL SEENIN HIGHER TRIGLYCERIDE OR LOWER NON-HDL SPECIMENS. FOR MOREINFORMATION, SEE CLIENT ANNOUNCEMENT AT [email or web address] CalcLDL-C RISK RATIO LDL/HDL (test code = 2238) (NOTE) RATIO <3.22 UNABLE TO DONNIE CULATE HEMOGLOBIN [id number] 03:11:31* Test Item Value Reference Range Interpretation Comme nts HEMOGLOBIN A1c (test code = 54507) 7.6 % 4.2-5.6 H [employer]IAN [employer] S ASSOCIATION GUIDELINES FOR HGB A1C: PREDIABETES/INCREASED RISK . . . . . . . 5.7-6.4% DIAGNOSIS OF DIABETES . . . . . . . . . >=6.5% WITH CONFIRMATION OR APPROPRIATE SYMPTOMS NOTE: ASSAY MAY BE AFFECTED BY HEMOGLOBINOPATHIES (SICKLE CELL ANEMIA, S-C DISEASE, OTHERS) OR ARTIFICIALLY LOWERED BY DECREASED RED CELL SURVIVAL (HEMOLYTIC ANEMIAS, BLOOD LOSS, ETC.). CONSIDER ALTERNATE TESTING OR LABORATORY CONSULTATION. UNLESS OTHERWISE INDICATED, ALL TESTING PERFORMED [facility] [employer] [address] [place] [address] PROGRAM MANAGEMENT INTERN: MARLENE GONZALEZ M.D. CLIA NUMBER [id number] [facility] [place]. [id number] CBC W/AUTO DIFF WITH [id number] 02:40:09* Test Item Value Reference Range Interpretation Comme nts WBC (test code = 1001) 9.0 K/UL 3.5-11.0 RBC (test code = 1002) 4.58 M/UL 3.80-5.40 HEMOGLOBIN (test code = 1003) 13.5 G/DL 11.5-15.5 HEMATOCRIT (test code = 1004) 39.9 % 34.0-45.0 MCV (test code = 1005) 87.1 fL 80.0-99.0 MCH (test code = 1006) 29.5 PG 25.0-33.0 MCHC (test code = 1007) 33.8 G/DL 31.0-36.0 RDW (test code = 1038) 13.1 % 11.5-15.0 NEUTROPHILS (test code = 1008) 64.6 % LYMPHOCYTES (test code = 1010) 27.2 % MONOCYTES (test code = 1011) 5.7 % EOSINOPHILS (test code = 1012) 1.9 % BASOPHILS (test code = 1013) 0.2 % IMMATURE GRANULOCYTES (test code = 1036) 0.4 % NUCLEATED RBCS (test code = 1065) 0.0 /100 WBC'S See_Comment [Automated messa ge] The system which generated this result transmitted reference range: 0.0. The reference range was not used to interpret this result as normal/abnormal. PLATELET COUNT (test code = 1015) 295 K/UL 130-400 ABSOLUTE NEUTROPHILS (test code = 1066) 5.81 K/UL 1.50-7.50 ABSOLUTE LYMPHOCYTES (test code = 1067) 2.45 K/UL 1.00-4.00 ABSOLUTE MONOCYTES (test code = 1068) 0.51 K/UL 0.20-1.00 ABSOLUTE EOSINOPHILS (test code = 1040) 0.17 K/UL 0.00-0.50 ABSOLUTE BASOPHILS (test code = 1069) 0.02 K/UL 0.00-0.20 ABS IMMATURE GRANULOCYTES (test code = 1020) 0.04 K/UL 0.00-0.10 ABS NUCLEATED RBCS (test code = 89069) 0.00 K/UL 0.00-0.11 COMPREHENSIVE METABOLIC [id number] 04:31:34* Test Item Value Reference Range Interpretation Comme nts GLUCOSE (test code = 2217) 103 MG/DL 70-99 H BUN (test code = 8) 7 MG/DL 6-20 CREATININE (test code = 2214) 0.53 MG/DL 0.60-1.30 L eGFR (2020 CKD-EPI) (test code = 89099) 114 ML/MIN/1.73 >60 CALC BUN/CREAT (test code = 2235) 13 RATIO 6-28 SODIUM (test code = 2231) 140 MEQ/L 133-146 POTASSIUM (test code = 2228) 3.9 MEQ/L 3.5-5.4 CHLORIDE (test code = 2215) 105 MEQ/L 95-107 CARBON DIOXIDE (test code = 2206) 22 MEQ/L 19-31 CALCIUM (test code = 2209) 9.0 MG/DL 8.5-10.5 PROTEIN, TOTAL (test code = 222) 6.3 G/DL 6.1-8.3 ALBUMIN (test code = 220) 4.1 G/DL 3.5-5.2 CALC GLOBULIN (test code = 2240) 2.2 G/DL 1.9-3.7 CALC A/G RATIO (test code = 2234) 1.9 RATIO 1.0-2.6 BILIRUBIN, TOTAL (test code = 2207) 0.3 MG/DL See_Comment [Automated me ssage] The system which generated this result transmitted reference range: <=1.2. The reference range was not used to interpret this result as normal/abnormal. ALKALINE PHOSPHATASE (test code = 2204) 74 U/L 40-123 AST (test code = 2218) 20 U/L 9-40 ALT (test code = 2219) 25 U/L 5-40 UNLESS OTHERWISE INDICATED, ALL TESTING PERFORMED [facility] [employer] [address] [place] [address] PROGRAM MANAGEMENT INTERN: MARLENE GONZALEZ M.D. CLIA NUMBER [id number] [facility] [place]. [id number] LIPID [id number] 04:31:34* Test Item Value Reference Range Interpretation Comme nts CHOLESTEROL (test code = 2210) 289 MG/DL <200 H TRIGLYCERIDES (test code = 2232) 1152 MG/DL <150 H SPECIMEN LI PEMIC RESULTS RECHECKED AND VERIFIED HDL CHOLESTEROL (test code = 2220) 29 MG/DL >39 L CALC LDL CHOL (test code = 2237) (NOTE) MG/DL <100 UNABLE TO CALCUL ATE A VALID LDL CHOLESTEROL WHEN THE TRIGLYCERIDEVALUE IS GREATER THAN 400 MG/DL.UNABLE TO CALCULATE A VALID LDL CHOLESTEROL WHEN THE TRIGLYCERIDEVALUE IS GREATER THAN 400 MG/DL. NOTE: CALCULATED LDL IS BASED ON JOSTIN-MORAN METHOD WHICHINCLUDES ADJUSTABLE TRIGLYCERIDE:VLDL CHOLESTEROL RATIO.THIS FACTOR VARIES BY MEASURED TRIGLYCERIDE AND NON-HDLCHOLESTEROL CONCENTRATIONS WITH INCREASED CALCULATED LDL SEENIN HIGHER TRIGLYCERIDE OR LOWER NON-HDL SPECIMENS. FOR MOREINFORMATION, SEE CLIENT ANNOUNCEMENT AT [email or web address] CalcLDL-C RISK RATIO LDL/HDL (test code = 2238) (NOTE) RATIO <3.22 UNABLE TO DONNIE CULATE HEMOGLOBIN [id number] 03:56:58* Test Item Value Reference Range Interpretation Comme nts HEMOGLOBIN A1c (test code = 60149) 7.6 % 4.2-5.6 H FI[employer] DI[employer] S ASSOCIATION GUIDELINES FOR HGB A1C: PREDIABETES/INCREASED RISK . . . . . . . 5.7-6.4% DIAGNOSIS OF DIABETES . . . . . . . . . >=6.5% WITH CONFIRMATION OR APPROPRIATE SYMPTOMS NOTE: ASSAY MAY BE AFFECTED BY HEMOGLOBINOPATHIES (SICKLE CELL ANEMIA, S-C DISEASE, OTHERS) OR ARTIFICIALLY LOWERED BY DECREASED RED CELL SURVIVAL (HEMOLYTIC ANEMIAS, BLOOD LOSS, ETC.). CONSIDER ALTERNATE TESTING OR LABORATORY CONSULTATION. LIPID [id number] 00:00:00* Test Item Value Reference Range Interpretation Comme nts CHOLESTEROL (test code = 2210) 289 MG/DL TRIGLYCERIDES (test code = 2232) 1152 MG/DL HDL CHOLESTEROL (test code = 2220) 29 MG/DL CALC LDL CHOL (test code = 2237) (NOTE) MG/DL RISK RATIO LDL/HDL (test cod e = 2238) (NOTE) RATIO LIPID [id number] 00:00:00* Test Item Value Reference Range Interpretation Comme nts CHOLESTEROL (test code = 2210) 289 MG/DL TRIGLYCERIDES (test code = 2232) 1152 MG/DL HDL CHOLESTEROL (test code = 2220) 29 MG/DL CALC LDL CHOL (test code = 2237) (NOTE) MG/DL RISK RATIO LDL/HDL (test cod e = 2238) (NOTE) RATIO HEMOGLOBIN [id number] 00:00:00* Test Item Value Reference Range Interpretation Comme nts HEMOGLOBIN A1c (test code = 72609) 7.6 % HEMOGLOBIN [id number] 00:00:00* Test Item Value Reference Range Interpretation Comme nts HEMOGLOBIN A1c (test code = 84175) 7.6 % HEMOGLOBIN [id number] 00:00:00* Test Item Value Reference Range Interpretation Comme nts HEMOGLOBIN A1c (test code = 96488) 7.6 % COMPREHENSIVE METABOLIC [id number] 00:00:00* Test Item Value Reference Range Interpretation Comme nts GLUCOSE (test code = 2217) 103 MG/DL BUN (test code = 2208) 7 MG/DL CREATININE (test code = 2214) 0.53 MG/DL eGFR (2020 CKD-EPI) (test code = 93683) 114 ML/MIN/1.73 CALC BUN/CREAT (test code = 2235) 13 RATIO SODIUM (test code = 2231) 140 MEQ/L POTASSIUM (test code = 2228) 3.9 MEQ/L CHLORIDE (test code = 2215) 105 MEQ/L CARBON DIOXIDE (test code = 2206) 22 MEQ/L CALCIUM (test code = 2209) 9.0 MG/DL PROTEIN, TOTAL (test code = 2229) 6.3 G/DL ALBUMIN (test code = 2201) 4.1 G/DL CALC GLOBULIN (test code = 2240) 2.2 G/DL CALC A/G RATIO (test code = 2234) 1.9 RATIO BILIRUBIN, TOTAL (test code = 2207) 0.3 MG/DL ALKALINE PHOSPHATASE (test code = 2204) 74 U/L AST (test code = 2218) 20 U/L ALT (test code = 2219) 25 U/L COMPREHENSIVE METABOLIC [id number] 00:00:00* Test Item Value Reference Range Interpretation Comme nts GLUCOSE (test code = 2217) 103 MG/DL BUN (test code = 2208) 7 MG/DL CREATININE (test code = 2214) 0.53 MG/DL eGFR (2020 CKD-EPI) (test code = 05321) 114 ML/MIN/1.73 CALC BUN/CREAT (test code = 2235) 13 RATIO SODIUM (test code = 2231) 140 MEQ/L POTASSIUM (test code = 2228) 3.9 MEQ/L CHLORIDE (test code = 2215) 105 MEQ/L CARBON DIOXIDE (test code = 2206) 22 MEQ/L CALCIUM (test code = 2209) 9.0 MG/DL PROTEIN, TOTAL (test code = 2229) 6.3 G/DL ALBUMIN (test code = 2201) 4.1 G/DL CALC GLOBULIN (test code = 2240) 2.2 G/DL CALC A/G RATIO (test code = 2234) 1.9 RATIO BILIRUBIN, TOTAL (test code = 2207) 0.3 MG/DL ALKALINE PHOSPHATASE (test code = 2204) 74 U/L AST (test code = 2218) 20 U/L ALT (test code = 2219) 25 U/L LIPID [id number] 00:00:00* Test Item Value Reference Range Interpretation Comme nts CHOLESTEROL (test code = 2210) 289 MG/DL TRIGLYCERIDES (test code = 2232) 1152 MG/DL HDL CHOLESTEROL (test code = 2220) 29 MG/DL CALC LDL CHOL (test code = 2237) (NOTE) MG/DL RISK RATIO LDL/HDL (test cod e = 2238) (NOTE) RATIO LIPID [id number] 00:00:00* Test Item Value Reference Range Interpretation Comme nts CHOLESTEROL (test code = 2210) 289 MG/DL TRIGLYCERIDES (test code = 2232) 1152 MG/DL HDL CHOLESTEROL (test code = 2220) 29 MG/DL CALC LDL CHOL (test code = 2237) (NOTE) MG/DL RISK RATIO LDL/HDL (test cod e = 2238) (NOTE) RATIO HEMOGLOBIN [id number] 00:00:00* Test Item Value Reference Range Interpretation Comme nts HEMOGLOBIN A1c (test code = 49303) 7.6 % HEMOGLOBIN [id number] 00:00:00* Test Item Value Reference Range Interpretation Comme nts HEMOGLOBIN A1c (test code = 10287) 7.6 % HEMOGLOBIN [id number] 00:00:00* Test Item Value Reference Range Interpretation Comme nts HEMOGLOBIN A1c (test code = 69078) 7.6 % COMPREHENSIVE METABOLIC [id number] 00:00:00* Test Item Value Reference Range Interpretation Comme nts GLUCOSE (test code = 2217) 103 MG/DL BUN (test code = 2208) 7 MG/DL CREATININE (test code = 2214) 0.53 MG/DL eGFR (2020 CKD-EPI) (test code = 16873) 114 ML/MIN/1.73 CALC BUN/CREAT (test code = 2235) 13 RATIO SODIUM (test code = 2231) 140 MEQ/L POTASSIUM (test code = 2228) 3.9 MEQ/L CHLORIDE (test code = 2215) 105 MEQ/L CARBON DIOXIDE (test code = 2206) 22 MEQ/L CALCIUM (test code = 2209) 9.0 MG/DL PROTEIN, TOTAL (test code = 2229) 6.3 G/DL ALBUMIN (test code = 2201) 4.1 G/DL CALC GLOBULIN (test code = 2240) 2.2 G/DL CALC A/G RATIO (test code = 2234) 1.9 RATIO BILIRUBIN, TOTAL (test code = 2207) 0.3 MG/DL ALKALINE PHOSPHATASE (test code = 2204) 74 U/L AST (test code = 2218) 20 U/L ALT (test code = 2219) 25 U/L COMPREHENSIVE METABOLIC [id number] 00:00:00* Test Item Value Reference Range Interpretation Comme nts GLUCOSE (test code = 2217) 103 MG/DL BUN (test code = 2208) 7 MG/DL CREATININE (test code = 2214) 0.53 MG/DL eGFR (2020 CKD-EPI) (test code = 04489) 114 ML/MIN/1.73 CALC BUN/CREAT (test code = 2235) 13 RATIO SODIUM (test code = 2231) 140 MEQ/L POTASSIUM (test code = 2228) 3.9 MEQ/L CHLORIDE (test code = 2215) 105 MEQ/L CARBON DIOXIDE (test code = 2206) 22 MEQ/L CALCIUM (test code = 2209) 9.0 MG/DL PROTEIN, TOTAL (test code = 2229) 6.3 G/DL ALBUMIN (test code = 220) 4.1 G/DL CALC GLOBULIN (test code = 2240) 2.2 G/DL CALC A/G RATIO (test code = 2234) 1.9 RATIO BILIRUBIN, TOTAL (test code = 2207) 0.3 MG/DL ALKALINE PHOSPHATASE (test code = 2204) 74 U/L AST (test code = 2218) 20 U/L ALT (test code = 2219) 25 U/L ALBUMIN/CREATININE RATIO, URINE, [id number] 06:08:56* Test Item Value Reference Range Interpretation Comme nts CREATININE, URINE, RANDOM (test code = 2072) 170.9 MG/DL NOT ESTAB ALBUMIN, URINE, RANDOM (test code = 10002) 45.7 MG/DL NOT ESTAB CALC ALBUMIN/CREAT, RND (test code = 13703) 267 MG/G <30 H Note: Albumin/Creatinine ratio reference interval reflects ADA and NKF guidelines. VITAMIN D, 25 [id number] 04:23:26* Test Item Value Reference Range Interpretation Comme nts VITAMIN D, 25 OH (test code = 4958) 9 NG/ML SEE BELOW L NOTE: 25-HYDR OXYVITAMIN D ASSAY INCLUDES 25-HYDROXYVITAMIN D2 AND D3. METHODOLOGY IS CHEMILUMINESCENT IMMUNOASSAY. INTERPRETIVE RANGES PEDIATRIC (<17 YEARS) . . . . . . . . . . . NG/ML 20-100ADULT: INSUFFICIENT . . . . . . . . . . . . . . NG/ML <20 SUBOPTIMAL . . . . . . . . . . . . . . . NG/ML 20-29 OPTIMAL . . . . . . . . . . . . . . . . . NG/ML 30-100 MICROALBUMIN/CREATININE, RANDOM AND [id number] 00:00:00* Test Item Value Reference Range Interpretation Comme nts CREATININE, URINE, RANDOM (t est code = 2071) 170.9 MG/DL ALBUMIN, URINE, RANDOM (test code = 84157) 45.7 MG/DL CALC ALBUMIN/CREAT, RND (monique t code = 89346) 267 MG/G VITAMIN D, 25 [id number] 00:00:00* Test Item Value Reference Range Interpretation Comme nts VITAMIN D, 25 OH (test code = 4958) 9 NG/ML MICROALBUMIN/CREATININE, RANDOM AND [id number] 00:00:00* Test Item Value Reference Range Interpretation Comme nts CREATININE, URINE, RANDOM (t est code = 2071) 170.9 MG/DL ALBUMIN, URINE, RANDOM (test code = 03460) 45.7 MG/DL CALC ALBUMIN/CREAT, RND (monique t code = 92221) 267 MG/G MICROALBUMIN/CREATININE, RANDOM AND [id number] 00:00:00* Test Item Value Reference Range Interpretation Comme nts CREATININE, URINE, RANDOM (t est code = 2071) 170.9 MG/DL ALBUMIN, URINE, RANDOM (test code = 62968) 45.7 MG/DL CALC ALBUMIN/CREAT, RND (monique t code = 01053) 267 MG/G VITAMIN D, 25 [id number] 00:00:00* Test Item Value Reference Range Interpretation Comme nts VITAMIN D, 25 OH (test code = 4958) 9 NG/ML VITAMIN D, 25 [id number] 00:00:00* Test Item Value Reference Range Interpretation Comme nts VITAMIN D, 25 OH (test code = 4958) 9 NG/ML MICROALBUMIN/CREATININE, RANDOM AND [id number] 00:00:00* Test Item Value Reference Range Interpretation Comme nts CREATININE, URINE, RANDOM (t est code = 207) 170.9 MG/DL ALBUMIN, URINE, RANDOM (test code = 57962) 45.7 MG/DL CALC ALBUMIN/CREAT, RND (monique t code = 42018) 267 MG/G MICROALBUMIN/CREATININE, RANDOM AND [id number] 00:00:00* Test Item Value Reference Range Interpretation Comme nts CREATININE, URINE, RANDOM (t est code = 2071) 170.9 MG/DL ALBUMIN, URINE, RANDOM (test code = 78030) 45.7 MG/DL CALC ALBUMIN/CREAT, RND (monique t code = 35742) 267 MG/G VITAMIN D, 25 [id number] 00:00:00* Test Item Value Reference Range Interpretation Comme nts VITAMIN D, 25 OH (test code = 4958) 9 NG/ML VITAMIN D, 25 [id number] 00:00:00* Test Item Value Reference Range Interpretation Comme nts VITAMIN D, 25 OH (test code = 4958) 9 NG/ML LIPID [id number] 22:05:35* Test Item Value Reference Range Interpretation Comme nts CHOLESTEROL (test code = 2210) 814 MG/DL <200 H TRIGLYCERIDES (test code = 2232) 549 MG/DL <150 H HDL CHOLESTEROL (test code = 2220) 20 MG/DL >39 L CALC LDL CHOL (test code = 2237) (NOTE) MG/DL <100 UNABLE TO CALCUL ATE A VALID LDL CHOLESTEROL WHEN THE TRIGLYCERIDEVALUE IS GREATER THAN 400 MG/DL.UNABLE TO CALCULATE A VALID LDL CHOLESTEROL WHEN THE TRIGLYCERIDEVALUE IS GREATER THAN 400 MG/DL. NOTE: CALCULATED LDL IS BASED ON JOSTIN-MORAN METHOD WHICHINCLUDES ADJUSTABLE TRIGLYCERIDE:VLDL CHOLESTEROL RATIO.THIS FACTOR VARIES BY MEASURED TRIGLYCERIDE AND NON-HDLCHOLESTEROL CONCENTRATIONS WITH INCREASED CALCULATED LDL SEENIN HIGHER TRIGLYCERIDE OR LOWER NON-HDL SPECIMENS. FOR MOREINFORMATION, SEE CLIENT ANNOUNCEMENT AT [email or web address] CalcLDL-C RISK RATIO LDL/HDL (test code = 2238) (NOTE) RATIO <3.22 UNABLE TO DONNIE CULATE COMPREHENSIVE METABOLIC [id number] 22:05:35* Test Item Value Reference Range Interpretation Comme nts GLUCOSE (test code = 2217) 240 MG/DL 70-99 H BUN (test code = 2207) 9 MG/DL 6-20 CREATININE (test code = 2213) 0.47 MG/DL 0.60-1.30 L eGFR (2020 CKD-EPI) (test code = ) 118 ML/MIN/1.73 >60 CALC BUN/CREAT (test code = 2234) 19 RATIO 6-28 SODIUM (test code = 2230) 134 MEQ/L 133-146 POTASSIUM (test code = 2227) 4.4 MEQ/L 3.5-5.4 CHLORIDE (test code = 2214) 93 MEQ/L 95-107 L CARBON DIOXIDE (test code = 2205) 19 MEQ/L 19-31 CALCIUM (test code = 2208) 9.5 MG/DL 8.5-10.5 PROTEIN, TOTAL (test code = 2228) 6.9 G/DL 6.1-8.3 ALBUMIN (test code = 2200) 4.3 G/DL 3.5-5.2 CALC GLOBULIN (test code = 2239) 2.6 G/DL 1.9-3.7 CALC A/G RATIO (test code = 2233) 1.7 RATIO 1.0-2.6 BILIRUBIN, TOTAL (test code = 2206) 0.3 MG/DL See_Comment [Automated me ssage] The system which generated this result transmitted reference range: <=1.2. The reference range was not used to interpret this result as normal/abnormal. ALKALINE PHOSPHATASE (test code = 2203) 94 U/L 40-120 AST (test code = 2217) 9 U/L 9-40 ALT (test code = 2218) 49 U/L 5-40 H IRON, [id number] 22:05:35* Test Item Value Reference Range Interpretation Comme [facility] IRON, SERUM (test code = 2221) 91 UG/DL 37-145 UNLESS OTHERWISE INDICATED, ALL TESTING PERFORMED [facility] [employer] [address] [place] [id number] PROGRAM MANAGEMENT INTERN: MARLENE GONZALEZ M.D. CLIA NUMBER [id number] [facility] [place]. [id number] VITAMIN [id number] 05:31:10* Test Item Value Reference Range Interpretation Comme [facility] VITAMIN B-12 (test code = 2840) >2000 PG/ML 200-950 H COMPREHENSIVE METABOLIC [id number] 00:00:00* Test Item Value Reference Range Interpretation Comme nts GLUCOSE (test code = 2217) 240 MG/DL BUN (test code = 2208) 9 MG/DL CREATININE (test code = 2214) 0.47 MG/DL eGFR (2020 CKD-EPI) (test code = 17409) 118 ML/MIN/1.73 CALC BUN/CREAT (test code = 2235) 19 RATIO SODIUM (test code = 2231) 134 MEQ/L POTASSIUM (test code = 2228) 4.4 MEQ/L CHLORIDE (test code = 2215) 93 MEQ/L CARBON DIOXIDE (test code = 2206) 19 MEQ/L CALCIUM (test code = 2209) 9.5 MG/DL PROTEIN, TOTAL (test code = 2229) 6.9 G/DL ALBUMIN (test code = 2201) 4.3 G/DL CALC GLOBULIN (test code = 2240) 2.6 G/DL CALC A/G RATIO (test code = 2234) 1.7 RATIO BILIRUBIN, TOTAL (test code = 2207) 0.3 MG/DL ALKALINE PHOSPHATASE (test code = 2204) 94 U/L AST (test code = 2218) 9 U/L ALT (test code = 2219) 49 U/L VITAMIN [id number] 00:00:00* Test Item Value Reference Range Interpretation Comme nts VITAMIN B-12 (test code = 2840) >2000 PG/ML VITAMIN [id number] 00:00:00* Test Item Value Reference Range Interpretation Comme nts VITAMIN B-12 (test code = 2840) >2000 PG/ML IRON, [id number] 00:00:00* Test Item Value Reference Range Interpretation Comme nts IRON, SERUM (test code = 2222) 91 UG/DL LIPID [id number] 00:00:00* Test Item Value Reference Range Interpretation Comme nts CHOLESTEROL (test code = 2210) 814 MG/DL TRIGLYCERIDES (test code = 2232) 549 MG/DL HDL CHOLESTEROL (test code = 2220) 20 MG/DL CALC LDL CHOL (test code = 2237) (NOTE) MG/DL RISK RATIO LDL/HDL (test cod e = 2238) (NOTE) RATIO LIPID [id number] 00:00:00* Test Item Value Reference Range Interpretation Comme nts CHOLESTEROL (test code = 2210) 814 MG/DL TRIGLYCERIDES (test code = 2232) 549 MG/DL HDL CHOLESTEROL (test code = 2220) 20 MG/DL CALC LDL CHOL (test code = 2237) (NOTE) MG/DL RISK RATIO LDL/HDL (test cod e = 2238) (NOTE) RATIO COMPREHENSIVE METABOLIC [id number] 00:00:00* Test Item Value Reference Range Interpretation Comme nts GLUCOSE (test code = 2217) 240 MG/DL BUN (test code = 2208) 9 MG/DL CREATININE (test code = 2214) 0.47 MG/DL eGFR (2020 CKD-EPI) (test code = 95804) 118 ML/MIN/1.73 CALC BUN/CREAT (test code = 2235) 19 RATIO SODIUM (test code = 2231) 134 MEQ/L POTASSIUM (test code = 2228) 4.4 MEQ/L CHLORIDE (test code = 2215) 93 MEQ/L CARBON DIOXIDE (test code = 2206) 19 MEQ/L CALCIUM (test code = 2209) 9.5 MG/DL PROTEIN, TOTAL (test code = 2229) 6.9 G/DL ALBUMIN (test code = 2201) 4.3 G/DL CALC GLOBULIN (test code = 2240) 2.6 G/DL CALC A/G RATIO (test code = 2234) 1.7 RATIO BILIRUBIN, TOTAL (test code = 2207) 0.3 MG/DL ALKALINE PHOSPHATASE (test code = 2204) 94 U/L AST (test code = 2218) 9 U/L ALT (test code = 2219) 49 U/L COMPREHENSIVE METABOLIC [id number] 00:00:00* Test Item Value Reference Range Interpretation Comme nts GLUCOSE (test code = 2217) 240 MG/DL BUN (test code = 2208) 9 MG/DL CREATININE (test code = 2214) 0.47 MG/DL eGFR (2020 CKD-EPI) (test code = 57971) 118 ML/MIN/1.73 CALC BUN/CREAT (test code = 2235) 19 RATIO SODIUM (test code = 2231) 134 MEQ/L POTASSIUM (test code = 2228) 4.4 MEQ/L CHLORIDE (test code = 2215) 93 MEQ/L CARBON DIOXIDE (test code = 2206) 19 MEQ/L CALCIUM (test code = 2209) 9.5 MG/DL PROTEIN, TOTAL (test code = 2229) 6.9 G/DL ALBUMIN (test code = 2201) 4.3 G/DL CALC GLOBULIN (test code = 2240) 2.6 G/DL CALC A/G RATIO (test code = 2234) 1.7 RATIO BILIRUBIN, TOTAL (test code = 2207) 0.3 MG/DL ALKALINE PHOSPHATASE (test code = 2204) 94 U/L AST (test code = 2218) 9 U/L ALT (test code = 2219) 49 U/L VITAMIN [id number] 00:00:00* Test Item Value Reference Range Interpretation Comme nts VITAMIN B-12 (test code = 2840) >2000 PG/ML VITAMIN [id number] 00:00:00* Test Item Value Reference Range Interpretation Comme nts VITAMIN B-12 (test code = 2840) >2000 PG/ML VITAMIN [id number] 00:00:00* Test Item Value Reference Range Interpretation Comme nts VITAMIN B-12 (test code = 2840) >2000 PG/ML IRON, [id number] 00:00:00* Test Item Value Reference Range Interpretation Comme nts IRON, SERUM (test code = 2222) 91 UG/DL IRON, [id number] 00:00:00* Test Item Value Reference Range Interpretation Comme nts IRON, SERUM (test code = 2222) 91 UG/DL LIPID [id number] 00:00:00* Test Item Value Reference Range Interpretation Comme nts CHOLESTEROL (test code = 2210) 814 MG/DL TRIGLYCERIDES (test code = 2232) 549 MG/DL HDL CHOLESTEROL (test code = 2220) 20 MG/DL CALC LDL CHOL (test code = 2237) (NOTE) MG/DL RISK RATIO LDL/HDL (test cod e = 2238) (NOTE) RATIO LIPID [id number] 00:00:00* Test Item Value Reference Range Interpretation Comme nts CHOLESTEROL (test code = 2210) 814 MG/DL TRIGLYCERIDES (test code = 2232) 549 MG/DL HDL CHOLESTEROL (test code = 2220) 20 MG/DL CALC LDL CHOL (test code = 2237) (NOTE) MG/DL RISK RATIO LDL/HDL (test cod e = 2238) (NOTE) RATIO COMPREHENSIVE METABOLIC [id number] 00:00:00* Test Item Value Reference Range Interpretation Comme nts GLUCOSE (test code = 2217) 240 MG/DL BUN (test code = 2208) 9 MG/DL CREATININE (test code = 2214) 0.47 MG/DL eGFR (2020 CKD-EPI) (test code = 66848) 118 ML/MIN/1.73 CALC BUN/CREAT (test code = 2235) 19 RATIO SODIUM (test code = 2231) 134 MEQ/L POTASSIUM (test code = 2228) 4.4 MEQ/L CHLORIDE (test code = 2215) 93 MEQ/L CARBON DIOXIDE (test code = 2206) 19 MEQ/L CALCIUM (test code = 2209) 9.5 MG/DL PROTEIN, TOTAL (test code = 2229) 6.9 G/DL ALBUMIN (test code = 2201) 4.3 G/DL CALC GLOBULIN (test code = 2240) 2.6 G/DL CALC A/G RATIO (test code = 2234) 1.7 RATIO BILIRUBIN, TOTAL (test code = 2207) 0.3 MG/DL ALKALINE PHOSPHATASE (test code = 2204) 94 U/L AST (test code = 2218) 9 U/L ALT (test code = 2219) 49 U/L COMPREHENSIVE METABOLIC [id number] 00:00:00* Test Item Value Reference Range Interpretation Comme nts GLUCOSE (test code = 2217) 240 MG/DL BUN (test code = 2208) 9 MG/DL CREATININE (test code = 2214) 0.47 MG/DL eGFR (2020 CKD-EPI) (test code = 40428) 118 ML/MIN/1.73 CALC BUN/CREAT (test code = 2235) 19 RATIO SODIUM (test code = 2231) 134 MEQ/L POTASSIUM (test code = 2228) 4.4 MEQ/L CHLORIDE (test code = 2215) 93 MEQ/L CARBON DIOXIDE (test code = 2206) 19 MEQ/L CALCIUM (test code = 2209) 9.5 MG/DL PROTEIN, TOTAL (test code = 2229) 6.9 G/DL ALBUMIN (test code = 2201) 4.3 G/DL CALC GLOBULIN (test code = 2240) 2.6 G/DL CALC A/G RATIO (test code = 2234) 1.7 RATIO BILIRUBIN, TOTAL (test code = 2207) 0.3 MG/DL ALKALINE PHOSPHATASE (test code = 2204) 94 U/L AST (test code = 2218) 9 U/L ALT (test code = 2219) 49 U/L VITAMIN [id number] 00:00:00* Test Item Value Reference Range Interpretation Comme nts VITAMIN B-12 (test code = 2840) >2000 PG/ML VITAMIN [id number] 00:00:00* Test Item Value Reference Range Interpretation Comme nts VITAMIN B-12 (test code = 2840) >2000 PG/ML VITAMIN [id number] 00:00:00* Test Item Value Reference Range Interpretation Comme nts VITAMIN B-12 (test code = 2840) >2000 PG/ML IRON, [id number] 00:00:00* Test Item Value Reference Range Interpretation Comme nts IRON, SERUM (test code = 2222) 91 UG/DL IRON, [id number] 00:00:00* Test Item Value Reference Range Interpretation Comme nts IRON, SERUM (test code = 2222) 91 UG/DL LIPID [id number] 00:00:00* Test Item Value Reference Range Interpretation Comme nts CHOLESTEROL (test code = 2210) 814 MG/DL TRIGLYCERIDES (test code = 2232) 549 MG/DL HDL CHOLESTEROL (test code = 2220) 20 MG/DL CALC LDL CHOL (test code = 2237) (NOTE) MG/DL RISK RATIO LDL/HDL (test cod e = 2238) (NOTE) RATIO CBC W/AUTO DIFF WITH [id number] 03:36:44* Test Item Value Reference Range Interpretation Comme nts WBC (test code = 1001) 6.8 K/UL 3.5-11.0 RBC (test code = 1002) 4.97 M/UL 3.80-5.40 HEMOGLOBIN (test code = 1003) 15.6 G/DL 11.5-15.5 H HEMATOCRIT (test code = 1004) 43.2 % 34.0-45.0 MCV (test code = 1005) 86.9 fL 80.0-99.0 MCH (test code = 1006) 31.4 PG 25.0-33.0 MCHC (test code = 1007) 36.1 G/DL 31.0-36.0 H RDW (test code = 1038) 13.1 % 11.5-15.0 NEUTROPHILS (test code = 1008) 65.5 % LYMPHOCYTES (test code = 1010) 26.7 % MONOCYTES (test code = 1011) 4.9 % EOSINOPHILS (test code = 1012) 2.1 % BASOPHILS (test code = 1013) 0.4 % IMMATURE GRANULOCYTES (test code = 1036) 0.4 % NUCLEATED RBCS (test code = 1065) 0.0 /100 WBC'S See_Comment [Automated [employer]] The system which generated this result transmitted reference range: 0.0. The reference range was not used to interpret this result as normal/abnormal. PLATELET COUNT (test code = 1015) 248 K/UL 130-400 ABSOLUTE NEUTROPHILS (test code = 1066) 4.43 K/UL 1.50-7.50 ABSOLUTE LYMPHOCYTES (test code = 1067) 1.81 K/UL 1.00-4.00 ABSOLUTE MONOCYTES (test code = 1068) 0.33 K/UL 0.20-1.00 ABSOLUTE EOSINOPHILS (test code = 1040) 0.14 K/UL 0.00-0.50 ABSOLUTE BASOPHILS (test code = 1069) 0.03 K/UL 0.00-0.20 ABS IMMATURE GRANULOCYTES (test code = 1020) 0.03 K/UL 0.00-0.10 ABS NUCLEATED RBCS (test code = 96035) 0.02 K/UL 0.00-0.11 HEMOGLOBIN [id number] 03:25:41* Test Item Value Reference Range Interpretation Comme nts HEMOGLOBIN A1c (test code = 93349) 8.7 % 4.2-5.6 H [employer] GUIDELINES FOR HGB A1C: PREDIABETES/INCREASED RISK . . . . . . . 5.7-6.4% DIAGNOSIS OF DIABETES . . . . . . . . . >=6.5% WITH CONFIRMATION OR APPROPRIATE SYMPTOMS NOTE: ASSAY MAY BE AFFECTED BY HEMOGLOBINOPATHIES (SICKLE CELL ANEMIA, S-C DISEASE, OTHERS) OR ARTIFICIALLY LOWERED BY DECREASED RED CELL SURVIVAL (HEMOLYTIC ANEMIAS, BLOOD LOSS, ETC.). CONSIDER ALTERNATE TESTING OR LABORATORY CONSULTATION. HEMOGLOBIN [id number] 00:00:00* Test Item Value Reference Range Interpretation Comme nts HEMOGLOBIN A1c (test code = 48378) 8.7 % HEMOGLOBIN [id number] 00:00:00* Test Item Value Reference Range Interpretation Comme nts HEMOGLOBIN A1c (test code = 07633) 8.7 % CBC W/AUTO [id number] 00:00:00* Test Item Value Reference Range Interpretation Comme nts WBC (test code = 1001) 6.8 K/UL [...] = 1013) 0.4 % IMMATURE GRANULOCYTES (test code = 1036) 0.4 % NUCLEATED RBCS (test code = 1065) 0.0 /100WBC'S PLATELET COUNT (test code = 1015) 248 K/UL ABSOLUTE NEUTROPHILS (test c ode = 1066) 4.43 K/UL ABSOLUTE LYMPHOCYTES (test c ode = 1067) 1.81 K/UL ABSOLUTE MONOCYTES (test cod e = 1068) 0.33 K/UL ABSOLUTE EOSINOPHILS (test c ode = 1040) 0.14 K/UL ABSOLUTE BASOPHILS (test cod e = 1069) 0.03 K/UL ABS IMMATURE GRANULOCYTES (t est code = 1020) 0.03 K/UL ABS NUCLEATED RBCS (test cod e = 35761) 0.02 K/UL CBC W/AUTO [id number] 00:00:00* Test Item Value Reference Range Interpretation Comme nts WBC (test code = 1001) 6.8 K/UL [...] = 1013) 0.4 % IMMATURE GRANULOCYTES (test code = 1036) 0.4 % NUCLEATED RBCS (test code = 1065) 0.0 /100WBC'S PLATELET COUNT (test code = 1015) 248 K/UL ABSOLUTE NEUTROPHILS (test c ode = 1066) 4.43 K/UL ABSOLUTE LYMPHOCYTES (test c ode = 1067) 1.81 K/UL ABSOLUTE MONOCYTES (test cod e = 1068) 0.33 K/UL ABSOLUTE EOSINOPHILS (test c ode = 1040) 0.14 K/UL ABSOLUTE BASOPHILS (test cod e = 1069) 0.03 K/UL ABS IMMATURE GRANULOCYTES (t est code = 1020) 0.03 K/UL ABS NUCLEATED RBCS (test cod e = 54030) 0.02 K/UL HEMOGLOBIN [id number] 00:00:00* Test Item Value Reference Range Interpretation Comme nts HEMOGLOBIN A1c (test code = 59653) 8.7 % HEMOGLOBIN [id number] 00:00:00* Test Item Value Reference Range Interpretation Comme nts HEMOGLOBIN A1c (test code = 14481) 8.7 % HEMOGLOBIN [id number] 00:00:00* Test Item Value Reference Range Interpretation Comme nts HEMOGLOBIN A1c (test code = 20340) 8.7 % CBC W/AUTO [id number] 00:00:00* Test Item Value Reference Range Interpretation Comme nts WBC (test code = 1001) 6.8 K/UL [...] = 1013) 0.4 % IMMATURE GRANULOCYTES (test code = 1036) 0.4 % NUCLEATED RBCS (test code = 1065) 0.0 /100WBC'S PLATELET COUNT (test code = 1015) 248 K/UL ABSOLUTE NEUTROPHILS (test c ode = 1066) 4.43 K/UL ABSOLUTE LYMPHOCYTES (test c ode = 1067) 1.81 K/UL ABSOLUTE MONOCYTES (test cod e = 1068) 0.33 K/UL ABSOLUTE EOSINOPHILS (test c ode = 1040) 0.14 K/UL ABSOLUTE BASOPHILS (test cod e = 1069) 0.03 K/UL ABS IMMATURE GRANULOCYTES (t est code = 1020) 0.03 K/UL ABS NUCLEATED RBCS (test cod e = 05258) 0.02 K/UL CBC W/AUTO [id number] 00:00:00* Test Item Value Reference Range Interpretation Comme nts WBC (test code = 1001) 6.8 K/UL [...] = 1013) 0.4 % IMMATURE GRANULOCYTES (test code = 1036) 0.4 % NUCLEATED RBCS (test code = 1065) 0.0 /100WBC'S PLATELET COUNT (test code = 1015) 248 K/UL ABSOLUTE NEUTROPHILS (test c ode = 1066) 4.43 K/UL ABSOLUTE LYMPHOCYTES (test c ode = 1067) 1.81 K/UL ABSOLUTE MONOCYTES (test cod e = 1068) 0.33 K/UL ABSOLUTE EOSINOPHILS (test c ode = 1040) 0.14 K/UL ABSOLUTE BASOPHILS (test cod e = 1069) 0.03 K/UL ABS IMMATURE GRANULOCYTES (t est code = 1020) 0.03 K/UL ABS NUCLEATED RBCS (test cod e = 62336) 0.02 K/UL CBC W/AUTO [id number] 00:00:00* Test Item Value Reference Range Interpretation Comme nts WBC (test code = 1001) 6.8 K/UL [...] = 1013) 0.4 % IMMATURE GRANULOCYTES (test code = 1036) 0.4 % NUCLEATED RBCS (test code = 1065) 0.0 /100WBC'S PLATELET COUNT (test code = 1015) 248 K/UL ABSOLUTE NEUTROPHILS (test c ode = 1066) 4.43 K/UL ABSOLUTE LYMPHOCYTES (test c ode = 1067) 1.81 K/UL ABSOLUTE MONOCYTES (test cod e = 1068) 0.33 K/UL ABSOLUTE EOSINOPHILS (test c ode = 1040) 0.14 K/UL ABSOLUTE BASOPHILS (test cod e = 1069) 0.03 K/UL ABS IMMATURE GRANULOCYTES (t est code = 1020) 0.03 K/UL ABS NUCLEATED RBCS (test cod e = 58339) 0.02 K/UL HEMOGLOBIN [id number] 00:00:00* Test Item Value Reference Range Interpretation Comme nts HEMOGLOBIN A1c (test code = 73398) 8.7 % HEMOGLOBIN [id number] 00:00:00* Test Item Value Reference Range Interpretation Comme nts HEMOGLOBIN A1c (test code = 94816) 8.7 % HEMOGLOBIN [id number] 00:00:00* Test Item Value Reference Range Interpretation Comme nts HEMOGLOBIN A1c (test code = 28616) 8.7 % CBC W/AUTO [id number] 00:00:00* Test Item Value Reference Range Interpretation Comme nts WBC (test code = 1001) 6.8 K/UL [...] = 1013) 0.4 % IMMATURE GRANULOCYTES (test code = 1036) 0.4 % NUCLEATED RBCS (test code = 1065) 0.0 /100WBC'S PLATELET COUNT (test code = 1015) 248 K/UL ABSOLUTE NEUTROPHILS (test c ode = 1066) 4.43 K/UL ABSOLUTE LYMPHOCYTES (test c ode = 1067) 1.81 K/UL ABSOLUTE MONOCYTES (test cod e = 1068) 0.33 K/UL ABSOLUTE EOSINOPHILS (test c ode = 1040) 0.14 K/UL ABSOLUTE BASOPHILS (test cod e = 1069) 0.03 K/UL ABS IMMATURE GRANULOCYTES (t est code = 1020) 0.03 K/UL ABS NUCLEATED RBCS (test cod e = 84160) 0.02 K/UL CBC W/AUTO [id number] 00:00:00* Test Item Value Reference Range Interpretation Comme nts WBC (test code = 1001) 6.8 K/UL [...] = 1013) 0.4 % IMMATURE GRANULOCYTES (test code = 1036) 0.4 % NUCLEATED RBCS (test code = 1065) 0.0 /100WBC'S PLATELET COUNT (test code = 1015) 248 K/UL ABSOLUTE NEUTROPHILS (test c ode = 1066) 4.43 K/UL ABSOLUTE LYMPHOCYTES (test c ode = 1067) 1.81 K/UL ABSOLUTE MONOCYTES (test cod e = 1068) 0.33 K/UL ABSOLUTE EOSINOPHILS (test c ode = 1040) 0.14 K/UL ABSOLUTE BASOPHILS (test cod e = 1069) 0.03 K/UL ABS IMMATURE GRANULOCYTES (t est code = 1020) 0.03 K/UL ABS NUCLEATED RBCS (test cod e = 91158) 0.02 K/UL CBC W/AUTO [id number] 00:00:00* Test Item Value Reference Range Interpretation Comme nts WBC (test code = 1001) 6.8 K/UL [...] = 1013) 0.4 % IMMATURE GRANULOCYTES (test code = 1036) 0.4 % NUCLEATED RBCS (test code = 1065) 0.0 /100WBC'S PLATELET COUNT (test code = 1015) 248 K/UL ABSOLUTE NEUTROPHILS (test c ode = 1066) 4.43 K/UL ABSOLUTE LYMPHOCYTES (test c ode = 1067) 1.81 K/UL ABSOLUTE MONOCYTES (test cod e = 1068) 0.33 K/UL ABSOLUTE EOSINOPHILS (test c ode = 1040) 0.14 K/UL ABSOLUTE BASOPHILS (test cod e = 1069) 0.03 K/UL ABS IMMATURE GRANULOCYTES (t est code = 1020) 0.03 K/UL ABS NUCLEATED RBCS (test cod e = 33313) 0.02 K/UL [id number] 04:11:20* Test Item Value Reference Range Interpretation Comme nts LIPASE (test code = 2057) 18 U/L 13-60 [id number] 04:11:20* Test Item Value Reference Range Interpretation Comme nts AMYLASE (test code = 2204) 41 U/L 28-100 UNLESS OTHERWISE INDICATED, ALL TESTING PERFORMED [facility] [employer] [address] [place] [address] PROGRAM MANAGEMENT INTERN: MARLENE GONZALEZ M.D. CLIA NUMBER [id number] [facility] [place]. [id number] 00:00:00* Test Item Value Reference Range Interpretation Comme nts AMYLASE (test code = 2204) 41 U/L [id number] 00:00:00* Test Item Value Reference Range Interpretation Comme nts LIPASE (test code = 2057) 18 U/L [id number] 00:00:00* Test Item Value Reference Range Interpretation Comme nts LIPASE (test code = 2057) 18 U/L [id number] 00:00:00* Test Item Value Reference Range Interpretation Comme nts LIPASE (test code = 2057) 18 U/L [id number] 00:00:00* Test Item Value Reference Range Interpretation Comme nts AMYLASE (test code = 5) 41 U/L [id number] 00:00:00* Test Item Value Reference Range Interpretation Comme nts AMYLASE (test code = 5) 41 U/L [id number] 00:00:00* Test Item Value Reference Range Interpretation Comme nts LIPASE (test code = 2057) 18 U/L [id number] 00:00:00* Test Item Value Reference Range Interpretation Comme nts LIPASE (test code = 2057) 18 U/L [id number] 00:00:00* Test Item Value Reference Range Interpretation Comme nts LIPASE (test code = 2057) 18 U/L [id number] 00:00:00* Test Item Value Reference Range Interpretation Comme nts AMYLASE (test code = 2204) 41 U/L [id number] 00:00:00* Test Item Value Reference Range Interpretation Comme nts AMYLASE (test code = 2204) 41 U/L [id number] 00:00:00* Test Item Value Reference Range Interpretation Comme nts LIPASE (test code = 2057) 18 U/L [id number] 00:00:00* Test Item Value Reference Range Interpretation Comme nts LIPASE (test code = 2057) 18 U/L HEMOGLOBIN [id number] 05:11:03* Test Item Value Reference Range Interpretation Comme [facility] HEMOGLOBIN A1c (test code = 61887) 8.2 % 4.2-5.6 H [employer] GUIDELINES FOR HGB A1C: PREDIABETES/INCREASED RISK . . . . . . . 5.7-6.4% DIAGNOSIS OF DIABETES . . . . . . . . . >=6.5% WITH CONFIRMATION OR APPROPRIATE SYMPTOMS NOTE: ASSAY MAY BE AFFECTED BY HEMOGLOBINOPATHIES (SICKLE CELL ANEMIA, S-C DISEASE, OTHERS) OR ARTIFICIALLY LOWERED BY DECREASED RED CELL SURVIVAL (HEMOLYTIC ANEMIAS, BLOOD LOSS, ETC.). CONSIDER ALTERNATE TESTING OR LABORATORY CONSULTATION. COMPREHENSIVE METABOLIC [id number] 04:59:22* Test Item Value Reference Range Interpretation Comme [facility] GLUCOSE (test code = 2216) 216 MG/DL 70-99 H BUN (test code = 2207) 7 MG/DL 6-20 CREATININE (test code = 2214) 0.35 MG/DL 0.60-1.30 L eGFR (2020 CKD-EPI) (test code = 31246) 127 ML/MIN/1.73 >60 CALC BUN/CREAT (test code = 2235) 20 RATIO 6-28 SODIUM (test code = 223) 134 MEQ/L 133-146 POTASSIUM (test code = 2228) 4.0 MEQ/L 3.5-5.4 CHLORIDE (test code = 2215) 100 MEQ/L 95-107 CARBON DIOXIDE (test code = 2206) 21 MEQ/L 19-31 CALCIUM (test code = 2209) 8.8 MG/DL 8.5-10.5 PROTEIN, TOTAL (test code = 2229) 6.5 G/DL 6.1-8.3 ALBUMIN (test code = 2201) 3.7 G/DL 3.5-5.2 CALC GLOBULIN (test code = 2240) 2.8 G/DL 1.9-3.7 CALC A/G RATIO (test code = 2234) 1.3 RATIO 1.0-2.6 BILIRUBIN, TOTAL (test code = 2207) <0.2 MG/DL See_Comment [Automated me ssage] The system which generated this result transmitted reference range: <=1.2. The reference range was not used to interpret this result as normal/abnormal. ALKALINE PHOSPHATASE (test code = 2203) 111 U/L 40-120 AST (test code = 2218) 23 U/L 9-40 ALT (test code = 221) <5 U/L 5-40 L LIPID [id number] 04:59:22* Test Item Value Reference Range Interpretation Comme nts CHOLESTEROL (test code = 2210) 539 MG/DL <200 H TRIGLYCERIDES (test code = 2232) 2237 MG/DL <150 H [facility]EN [facility] RECHECKED AND VERIFIED HDL CHOLESTEROL (test code = 2220) 25 MG/DL >39 L CALC LDL CHOL (test code = 2237) (NOTE) MG/DL <100 UNABLE TO CALCUL ATE A VALID LDL CHOLESTEROL WHEN THE TRIGLYCERIDEVALUE IS GREATER THAN 400 MG/DL. NOTE: CALCULATED LDL IS BASED ON JOSTIN-MORAN METHOD WHICHINCLUDES ADJUSTABLE TRIGLYCERIDE:VLDL CHOLESTEROL RATIO.THIS FACTOR VARIES BY MEASURED TRIGLYCERIDE AND NON-HDLCHOLESTEROL CONCENTRATIONS WITH INCREASED CALCULATED LDL SEENIN HIGHER TRIGLYCERIDE OR LOWER NON-HDL SPECIMENS. FOR MOREINFORMATION, SEE CLIENT ANNOUNCEMENT AT [email or web address] CalcLDL-C RISK RATIO LDL/HDL (test code = 2238) 7.20 RATIO <3.22 H UNABLE TO DONNIE CULATE UNLESS OTHERWISE INDICATED, ALL TESTING PERFORMED [facility] [address] [place] [id number] PROGRAM MANAGEMENT INTERN: MARLENE GONZALEZ M.D. CLIA NUMBER [id number] [facility] [place] [place]. [id number] CBC W/AUTO DIFF WITH [id number] 04:14:18* Test Item Value Reference Range Interpretation Comme nts WBC (test code = 1001) 9.8 K/UL 3.5-11.0 RBC (test code = 1002) 4.76 M/UL 3.80-5.40 HEMOGLOBIN (test code = 1003) 14.7 G/DL 11.5-15.5 HEMATOCRIT (test code = 1004) 41.4 % 34.0-45.0 MCV (test code = 1005) 87.0 fL 80.0-99.0 MCH (test code = 1006) 30.9 PG 25.0-33.0 MCHC (test code = 1007) 35.5 G/DL 31.0-36.0 RDW (test code = 1038) 12.8 % 11.5-15.0 NEUTROPHILS (test code = 1008) 66.8 % LYMPHOCYTES (test code = 1010) 25.6 % MONOCYTES (test code = 1011) 5.3 % EOSINOPHILS (test code = 1012) 1.5 % BASOPHILS (test code = 1013) 0.2 % IMMATURE GRANULOCYTES (test code = 1036) 0.6 % NUCLEATED RBCS (test code = 1065) 0.0 /100 WBC'S See_Comment [Automated messa ge] The system which generated this result transmitted reference range: 0.0. The reference range was not used to interpret this result as normal/abnormal. PLATELET COUNT (test code = 1015) 275 K/UL 130-400 ABSOLUTE NEUTROPHILS (test code = 1066) 6.56 K/UL 1.50-7.50 ABSOLUTE LYMPHOCYTES (test code = 1067) 2.52 K/UL 1.00-4.00 ABSOLUTE MONOCYTES (test code = 1068) 0.52 K/UL 0.20-1.00 ABSOLUTE EOSINOPHILS (test code = 1040) 0.15 K/UL 0.00-0.50 ABSOLUTE BASOPHILS (test code = 1069) 0.02 K/UL 0.00-0.20 ABS IMMATURE GRANULOCYTES (test code = 1020) 0.06 K/UL 0.00-0.10 ABS NUCLEATED RBCS (test code = 10798) 0.00 K/UL 0.00-0.11 COMPREHENSIVE METABOLIC [id number] 00:00:00* Test Item Value Reference Range Interpretation Comme nts GLUCOSE (test code = 2217) 216 MG/DL BUN (test code = 2208) 7 MG/DL CREATININE (test code = 2214) 0.35 MG/DL eGFR (2020 CKD-EPI) (test code = 63643) 127 ML/MIN/1.73 CALC BUN/CREAT (test code = 2235) 20 RATIO SODIUM (test code = 2231) 134 MEQ/L POTASSIUM (test code = 2228) 4.0 MEQ/L CHLORIDE (test code = 2215) 100 MEQ/L CARBON DIOXIDE (test code = 2206) 21 MEQ/L CALCIUM (test code = 2209) 8.8 MG/DL PROTEIN, TOTAL (test code = 2229) 6.5 G/DL ALBUMIN (test code = 2201) 3.7 G/DL CALC GLOBULIN (test code = 2240) 2.8 G/DL CALC A/G RATIO (test code = 2234) 1.3 RATIO BILIRUBIN, TOTAL (test code = 2207) <0.2 MG/DL ALKALINE PHOSPHATASE (test code = 2204) 111 U/L AST (test code = 2218) 23 U/L ALT (test code = 2219) <5 U/L HEMOGLOBIN [id number] 00:00:00* Test Item Value Reference Range Interpretation Comme nts HEMOGLOBIN A1c (test code = 26103) 8.2 % HEMOGLOBIN [id number] 00:00:00* Test Item Value Reference Range Interpretation Comme nts HEMOGLOBIN A1c (test code = 14589) 8.2 % LIPID [id number] 00:00:00* Test Item Value Reference Range Interpretation Comme nts CHOLESTEROL (test code = 2210) 539 MG/DL TRIGLYCERIDES (test code = 2232) 2237 MG/DL HDL CHOLESTEROL (test code = 2220) 25 MG/DL CALC LDL CHOL (test code = 2237) (NOTE) MG/DL RISK RATIO LDL/HDL (test cod e = 2238) 7.20 RATIO CBC W/AUTO [id number] 00:00:00* Test Item Value Reference Range Interpretation Comme nts WBC (test code = 1001) 9.8 K/UL [...] = 1013) 0.2 % IMMATURE GRANULOCYTES (test code = 1036) 0.6 % NUCLEATED RBCS (test code = 1065) 0.0 /100WBC'S PLATELET COUNT (test code = 1015) 275 K/UL ABSOLUTE NEUTROPHILS (test c ode = 1066) 6.56 K/UL ABSOLUTE LYMPHOCYTES (test c ode = 1067) 2.52 K/UL ABSOLUTE MONOCYTES (test cod e = 1068) 0.52 K/UL ABSOLUTE EOSINOPHILS (test c ode = 1040) 0.15 K/UL ABSOLUTE BASOPHILS (test cod e = 1069) 0.02 K/UL ABS IMMATURE GRANULOCYTES (t est code = 1020) 0.06 K/UL ABS NUCLEATED RBCS (test cod e = 50133) 0.00 K/UL CBC W/AUTO [id number] 00:00:00* Test Item Value Reference Range Interpretation Comme nts WBC (test code = 1001) 9.8 K/UL [...] = 1013) 0.2 % IMMATURE GRANULOCYTES (test code = 1036) 0.6 % NUCLEATED RBCS (test code = 1065) 0.0 /100WBC'S PLATELET COUNT (test code = 1015) 275 K/UL ABSOLUTE NEUTROPHILS (test c ode = 1066) 6.56 K/UL ABSOLUTE LYMPHOCYTES (test c ode = 1067) 2.52 K/UL ABSOLUTE MONOCYTES (test cod e = 1068) 0.52 K/UL ABSOLUTE EOSINOPHILS (test c ode = 1040) 0.15 K/UL ABSOLUTE BASOPHILS (test cod e = 1069) 0.02 K/UL ABS IMMATURE GRANULOCYTES (t est code = 1020) 0.06 K/UL ABS NUCLEATED RBCS (test cod e = 47774) 0.00 K/UL CBC W/AUTO [id number] 00:00:00* Test Item Value Reference Range Interpretation Comme nts WBC (test code = 1001) 9.8 K/UL [...] = 1013) 0.2 % IMMATURE GRANULOCYTES (test code = 1036) 0.6 % NUCLEATED RBCS (test code = 1065) 0.0 /100WBC'S PLATELET COUNT (test code = 1015) 275 K/UL ABSOLUTE NEUTROPHILS (test c ode = 1066) 6.56 K/UL ABSOLUTE LYMPHOCYTES (test c ode = 1067) 2.52 K/UL ABSOLUTE MONOCYTES (test cod e = 1068) 0.52 K/UL ABSOLUTE EOSINOPHILS (test c ode = 1040) 0.15 K/UL ABSOLUTE BASOPHILS (test cod e = 1069) 0.02 K/UL ABS IMMATURE GRANULOCYTES (t est code = 1020) 0.06 K/UL ABS NUCLEATED RBCS (test cod e = 00477) 0.00 K/UL COMPREHENSIVE METABOLIC [id number] 00:00:00* Test Item Value Reference Range Interpretation Comme nts GLUCOSE (test code = 2217) 216 MG/DL BUN (test code = 2208) 7 MG/DL CREATININE (test code = 2214) 0.35 MG/DL eGFR (2020 CKD-EPI) (test code = 06422) 127 ML/MIN/1.73 CALC BUN/CREAT (test code = 2235) 20 RATIO SODIUM (test code = 2231) 134 MEQ/L POTASSIUM (test code = 2228) 4.0 MEQ/L CHLORIDE (test code = 2215) 100 MEQ/L CARBON DIOXIDE (test code = 2206) 21 MEQ/L CALCIUM (test code = 2209) 8.8 MG/DL PROTEIN, TOTAL (test code = 2229) 6.5 G/DL ALBUMIN (test code = 2201) 3.7 G/DL CALC GLOBULIN (test code = 2240) 2.8 G/DL CALC A/G RATIO (test code = 2234) 1.3 RATIO BILIRUBIN, TOTAL (test code = 2207) <0.2 MG/DL ALKALINE PHOSPHATASE (test code = 2204) 111 U/L AST (test code = 2218) 23 U/L ALT (test code = 2219) <5 U/L COMPREHENSIVE METABOLIC [id number] 00:00:00* Test Item Value Reference Range Interpretation Comme nts GLUCOSE (test code = 2217) 216 MG/DL BUN (test code = 2208) 7 MG/DL CREATININE (test code = 2214) 0.35 MG/DL eGFR (2020 CKD-EPI) (test code = 33594) 127 ML/MIN/1.73 CALC BUN/CREAT (test code = 2235) 20 RATIO SODIUM (test code = 2231) 134 MEQ/L POTASSIUM (test code = 2228) 4.0 MEQ/L CHLORIDE (test code = 2215) 100 MEQ/L CARBON DIOXIDE (test code = 2206) 21 MEQ/L CALCIUM (test code = 2209) 8.8 MG/DL PROTEIN, TOTAL (test code = 2229) 6.5 G/DL ALBUMIN (test code = 2201) 3.7 G/DL CALC GLOBULIN (test code = 2240) 2.8 G/DL CALC A/G RATIO (test code = 2234) 1.3 RATIO BILIRUBIN, TOTAL (test code = 2207) <0.2 MG/DL ALKALINE PHOSPHATASE (test code = 2204) 111 U/L AST (test code = 2218) 23 U/L ALT (test code = 2219) <5 U/L HEMOGLOBIN [id number] 00:00:00* Test Item Value Reference Range Interpretation Comme nts HEMOGLOBIN A1c (test code = 61739) 8.2 % HEMOGLOBIN [id number] 00:00:00* Test Item Value Reference Range Interpretation Comme nts HEMOGLOBIN A1c (test code = 04781) 8.2 % HEMOGLOBIN [id number] 00:00:00* Test Item Value Reference Range Interpretation Comme nts HEMOGLOBIN A1c (test code = 53887) 8.2 % LIPID [id number] 00:00:00* Test Item Value Reference Range Interpretation Comme nts CHOLESTEROL (test code = 2210) 539 MG/DL TRIGLYCERIDES (test code = 2232) 2237 MG/DL HDL CHOLESTEROL (test code = 2220) 25 MG/DL CALC LDL CHOL (test code = 2237) (NOTE) MG/DL RISK RATIO LDL/HDL (test cod e = 2238) 7.20 RATIO LIPID [id number] 00:00:00* Test Item Value Reference Range Interpretation Comme nts CHOLESTEROL (test code = 2210) 539 MG/DL TRIGLYCERIDES (test code = 2232) 2237 MG/DL HDL CHOLESTEROL (test code = 2220) 25 MG/DL CALC LDL CHOL (test code = 2237) (NOTE) MG/DL RISK RATIO LDL/HDL (test cod e = 2238) 7.20 RATIO CBC W/AUTO [id number] 00:00:00* Test Item Value Reference Range Interpretation Comme nts WBC (test code = 1001) 9.8 K/UL [...] = 1013) 0.2 % IMMATURE GRANULOCYTES (test code = 1036) 0.6 % NUCLEATED RBCS (test code = 1065) 0.0 /100WBC'S PLATELET COUNT (test code = 1015) 275 K/UL ABSOLUTE NEUTROPHILS (test c ode = 1066) 6.56 K/UL ABSOLUTE LYMPHOCYTES (test c ode = 1067) 2.52 K/UL ABSOLUTE MONOCYTES (test cod e = 1068) 0.52 K/UL ABSOLUTE EOSINOPHILS (test c ode = 1040) 0.15 K/UL ABSOLUTE BASOPHILS (test cod e = 1069) 0.02 K/UL ABS IMMATURE GRANULOCYTES (t est code = 1020) 0.06 K/UL ABS NUCLEATED RBCS (test cod e = 90884) 0.00 K/UL CBC W/AUTO [id number] 00:00:00* Test Item Value Reference Range Interpretation Comme nts WBC (test code = 1001) 9.8 K/UL [...] = 1013) 0.2 % IMMATURE GRANULOCYTES (test code = 1036) 0.6 % NUCLEATED RBCS (test code = 1065) 0.0 /100WBC'S PLATELET COUNT (test code = 1015) 275 K/UL ABSOLUTE NEUTROPHILS (test c ode = 1066) 6.56 K/UL ABSOLUTE LYMPHOCYTES (test c ode = 1067) 2.52 K/UL ABSOLUTE MONOCYTES (test cod e = 1068) 0.52 K/UL ABSOLUTE EOSINOPHILS (test c ode = 1040) 0.15 K/UL ABSOLUTE BASOPHILS (test cod e = 1069) 0.02 K/UL ABS IMMATURE GRANULOCYTES (t est code = 1020) 0.06 K/UL ABS NUCLEATED RBCS (test cod e = 82814) 0.00 K/UL CBC W/AUTO [id number] 00:00:00* Test Item Value Reference Range Interpretation Comme nts WBC (test code = 1001) 9.8 K/UL [...] = 1013) 0.2 % IMMATURE GRANULOCYTES (test code = 1036) 0.6 % NUCLEATED RBCS (test code = 1065) 0.0 /100WBC'S PLATELET COUNT (test code = 1015) 275 K/UL ABSOLUTE NEUTROPHILS (test c ode = 1066) 6.56 K/UL ABSOLUTE LYMPHOCYTES (test c ode = 1067) 2.52 K/UL ABSOLUTE MONOCYTES (test cod e = 1068) 0.52 K/UL ABSOLUTE EOSINOPHILS (test c ode = 1040) 0.15 K/UL ABSOLUTE BASOPHILS (test cod e = 1069) 0.02 K/UL ABS IMMATURE GRANULOCYTES (t est code = 1020) 0.06 K/UL ABS NUCLEATED RBCS (test cod e = 33302) 0.00 K/UL COMPREHENSIVE METABOLIC [id number] 00:00:00* Test Item Value Reference Range Interpretation Comme nts GLUCOSE (test code = 2217) 216 MG/DL BUN (test code = 2208) 7 MG/DL CREATININE (test code = 2214) 0.35 MG/DL eGFR (2020 CKD-EPI) (test code = 01344) 127 ML/MIN/1.73 CALC BUN/CREAT (test code = 2235) 20 RATIO SODIUM (test code = 2231) 134 MEQ/L POTASSIUM (test code = 2228) 4.0 MEQ/L CHLORIDE (test code = 2215) 100 MEQ/L CARBON DIOXIDE (test code = 2206) 21 MEQ/L CALCIUM (test code = 2209) 8.8 MG/DL PROTEIN, TOTAL (test code = 2229) 6.5 G/DL ALBUMIN (test code = 2201) 3.7 G/DL CALC GLOBULIN (test code = 2240) 2.8 G/DL CALC A/G RATIO (test code = 2234) 1.3 RATIO BILIRUBIN, TOTAL (test code = 2207) <0.2 MG/DL ALKALINE PHOSPHATASE (test code = 2204) 111 U/L AST (test code = 2218) 23 U/L ALT (test code = 2219) <5 U/L COMPREHENSIVE METABOLIC [id number] 00:00:00* Test Item Value Reference Range Interpretation Comme nts GLUCOSE (test code = 2217) 216 MG/DL BUN (test code = 2208) 7 MG/DL CREATININE (test code = 2214) 0.35 MG/DL eGFR (2020 CKD-EPI) (test code = 60920) 127 ML/MIN/1.73 CALC BUN/CREAT (test code = 2235) 20 RATIO SODIUM (test code = 2231) 134 MEQ/L POTASSIUM (test code = 2228) 4.0 MEQ/L CHLORIDE (test code = 2215) 100 MEQ/L CARBON DIOXIDE (test code = 2206) 21 MEQ/L CALCIUM (test code = 2209) 8.8 MG/DL PROTEIN, TOTAL (test code = 2229) 6.5 G/DL ALBUMIN (test code = 2201) 3.7 G/DL CALC GLOBULIN (test code = 2240) 2.8 G/DL CALC A/G RATIO (test code = 2234) 1.3 RATIO BILIRUBIN, TOTAL (test code = 2207) <0.2 MG/DL ALKALINE PHOSPHATASE (test code = 2204) 111 U/L AST (test code = 2218) 23 U/L ALT (test code = 2219) <5 U/L HEMOGLOBIN [id number] 00:00:00* Test Item Value Reference Range Interpretation Comme nts HEMOGLOBIN A1c (test code = 12549) 8.2 % HEMOGLOBIN [id number] 00:00:00* Test Item Value Reference Range Interpretation Comme nts HEMOGLOBIN A1c (test code = 13253) 8.2 % HEMOGLOBIN [id number] 00:00:00* Test Item Value Reference Range Interpretation Comme nts HEMOGLOBIN A1c (test code = 07188) 8.2 % LIPID [id number] 00:00:00* Test Item Value Reference Range Interpretation Comme nts CHOLESTEROL (test code = 2210) 539 MG/DL TRIGLYCERIDES (test code = 2232) 2237 MG/DL HDL CHOLESTEROL (test code = 2220) 25 MG/DL CALC LDL CHOL (test code = 2237) (NOTE) MG/DL RISK RATIO LDL/HDL (test cod e = 2238) 7.20 RATIO LIPID [id number] 00:00:00* Test Item Value Reference Range Interpretation Comme nts CHOLESTEROL (test code = 2210) 539 MG/DL TRIGLYCERIDES (test code = 2232) 2237 MG/DL HDL CHOLESTEROL (test code = 2220) 25 MG/DL CALC LDL CHOL (test code = 2237) (NOTE) MG/DL RISK RATIO LDL/HDL (test cod e = 2238) 7.20 RATIO CBC W/AUTO [id number] 00:00:00* Test Item Value Reference Range Interpretation Comme nts WBC (test code = 1001) 9.8 K/UL [...] = 1013) 0.2 % IMMATURE GRANULOCYTES (test code = 1036) 0.6 % NUCLEATED RBCS (test code = 1065) 0.0 /100WBC'S PLATELET COUNT (test code = 1015) 275 K/UL ABSOLUTE NEUTROPHILS (test c ode = 1066) 6.56 K/UL ABSOLUTE LYMPHOCYTES (test c ode = 1067) 2.52 K/UL ABSOLUTE MONOCYTES (test cod e = 1068) 0.52 K/UL ABSOLUTE EOSINOPHILS (test c ode = 1040) 0.15 K/UL ABSOLUTE BASOPHILS (test cod e = 1069) 0.02 K/UL ABS IMMATURE GRANULOCYTES (t est code = 1020) 0.06 K/UL ABS NUCLEATED RBCS (test cod e = 89186) 0.00 K/UL CBC W/AUTO [id number] 00:00:00* Test Item Value Reference Range Interpretation Comme nts WBC (test code = 1001) 9.8 K/UL [...] = 1013) 0.2 % IMMATURE GRANULOCYTES (test code = 1036) 0.6 % NUCLEATED RBCS (test code = 1065) 0.0 /100WBC'S PLATELET COUNT (test code = 1015) 275 K/UL ABSOLUTE NEUTROPHILS (test c ode = 1066) 6.56 K/UL ABSOLUTE LYMPHOCYTES (test c ode = 1067) 2.52 K/UL ABSOLUTE MONOCYTES (test cod e = 1068) 0.52 K/UL ABSOLUTE EOSINOPHILS (test c ode = 1040) 0.15 K/UL ABSOLUTE BASOPHILS (test cod e = 1069) 0.02 K/UL ABS IMMATURE GRANULOCYTES (t est code = 1020) 0.06 K/UL ABS NUCLEATED RBCS (test cod e = 96408) 0.00 K/UL [id number] 00:00:00* Test Item Value Reference Range Interpretation Comme nts LIPASE (test code = 2057) 14 U/L [id number] 00:00:00* Test Item Value Reference Range Interpretation Comme nts LIPASE (test code = 205) 14 U/L [id number] 00:00:00* Test Item Value Reference Range Interpretation Comme nts AMYLASE (test code = 2205) 44 U/L [id number] 00:00:00* Test Item Value Reference Range Interpretation Comme nts AMYLASE (test code = 2205) 44 U/L [id number] 00:00:00* Test Item Value Reference Range Interpretation Comme nts LIPASE (test code = 2057) 14 U/L [id number] 00:00:00* Test Item Value Reference Range Interpretation Comme nts LIPASE (test code = 2057) 14 U/L [id number] 00:00:00* Test Item Value Reference Range Interpretation Comme nts LIPASE (test code = 2057) 14 U/L [id number] 00:00:00* Test Item Value Reference Range Interpretation Comme nts AMYLASE (test code = 2205) 44 U/L [id number] 00:00:00* Test Item Value Reference Range Interpretation Comme nts AMYLASE (test code = 2205) 44 U/L [id number] 00:00:00* Test Item Value Reference Range Interpretation Comme nts LIPASE (test code = 2057) 14 U/L [id number] 00:00:00* Test Item Value Reference Range Interpretation Comme nts LIPASE (test code = 2057) 14 U/L [id number] 00:00:00* Test Item Value Reference Range Interpretation Comme nts LIPASE (test code = 2057) 14 U/L [id number] 00:00:00* Test Item Value Reference Range Interpretation Comme nts AMYLASE (test code = 2205) 44 U/L LIPID [id number] 00:00:00* Test Item Value Reference Range Interpretation Comme nts CHOLESTEROL (test code = 2210) 346 MG/DL TRIGLYCERIDES (test code = 2232) 1167 MG/DL HDL CHOLESTEROL (test code = 2220) 37 MG/DL CALC LDL CHOL (test code = 2237) (NOTE) MG/DL RISK RATIO LDL/HDL (test cod e = 2238) (NOTE) RATIO COMPREHENSIVE METABOLIC [id number] 00:00:00* Test Item Value Reference Range Interpretation Comme nts GLUCOSE (test code = 2217) 127 MG/DL BUN (test code = 2208) 7 MG/DL CREATININE (test code = 2214) 0.53 MG/DL eGFR AMER. (test cod e = 31752) 132 ML/MIN/1.73 eGFR NON- AMER. (test code = 59482) 114 ML/MIN/1.73 CALC BUN/CREAT (test code = 2235) 13 RATIO SODIUM (test code = 2231) 143 MEQ/L POTASSIUM (test code = 2228) 4.8 MEQ/L CHLORIDE (test code = 2215) 103 MEQ/L CARBON DIOXIDE (test code = 2206) 24 MEQ/L CALCIUM (test code = 2209) 9.6 MG/DL PROTEIN, TOTAL (test code = 2229) 7.3 G/DL ALBUMIN (test code = 2201) 4.7 G/DL CALC GLOBULIN (test code = 2240) 2.6 G/DL CALC A/G RATIO (test code = 2234) 1.8 RATIO BILIRUBIN, TOTAL (test code = 2207) <0.2 MG/DL ALKALINE PHOSPHATASE (test code = 2204) 88 U/L AST (test code = 2218) 12 U/L ALT (test code = 2219) 12 U/L LIPID [id number] 00:00:00* Test Item Value Reference Range Interpretation Comme nts CHOLESTEROL (test code = 2210) 346 MG/DL TRIGLYCERIDES (test code = 2232) 1167 MG/DL HDL CHOLESTEROL (test code = 2220) 37 MG/DL CALC LDL CHOL (test code = 2237) (NOTE) MG/DL RISK RATIO LDL/HDL (test cod e = 2238) (NOTE) RATIO LIPID [id number] 00:00:00* Test Item Value Reference Range Interpretation Comme nts CHOLESTEROL (test code = 2210) 346 MG/DL TRIGLYCERIDES (test code = 2232) 1167 MG/DL HDL CHOLESTEROL (test code = 2220) 37 MG/DL CALC LDL CHOL (test code = 2237) (NOTE) MG/DL RISK RATIO LDL/HDL (test cod e = 2238) (NOTE) RATIO COMPREHENSIVE METABOLIC [id number] 00:00:00* Test Item Value Reference Range Interpretation Comme nts GLUCOSE (test code = 2217) 127 MG/DL BUN (test code = 2208) 7 MG/DL CREATININE (test code = 2214) 0.53 MG/DL eGFR AMER. (test cod e = 98672) 132 ML/MIN/1.73 eGFR NON- AMER. (test code = 34297) 114 ML/MIN/1.73 CALC BUN/CREAT (test code = 2235) 13 RATIO SODIUM (test code = 2231) 143 MEQ/L POTASSIUM (test code = 2228) 4.8 MEQ/L CHLORIDE (test code = 2215) 103 MEQ/L CARBON DIOXIDE (test code = 2206) 24 MEQ/L CALCIUM (test code = 2209) 9.6 MG/DL PROTEIN, TOTAL (test code = 2229) 7.3 G/DL ALBUMIN (test code = 2201) 4.7 G/DL CALC GLOBULIN (test code = 2240) 2.6 G/DL CALC A/G RATIO (test code = 2234) 1.8 RATIO BILIRUBIN, TOTAL (test code = 2207) <0.2 MG/DL ALKALINE PHOSPHATASE (test code = 2204) 88 U/L AST (test code = 2218) 12 U/L ALT (test code = 2219) 12 U/L COMPREHENSIVE METABOLIC [id number] 00:00:00* Test Item Value Reference Range Interpretation Comme nts GLUCOSE (test code = 2217) 127 MG/DL BUN (test code = 2208) 7 MG/DL CREATININE (test code = 2214) 0.53 MG/DL eGFR AMER. (test cod e = 10866) 132 ML/MIN/1.73 eGFR NON- AMER. (test code = 32838) 114 ML/MIN/1.73 CALC BUN/CREAT (test code = 2235) 13 RATIO SODIUM (test code = 2231) 143 MEQ/L POTASSIUM (test code = 2228) 4.8 MEQ/L CHLORIDE (test code = 2215) 103 MEQ/L CARBON DIOXIDE (test code = 2206) 24 MEQ/L CALCIUM (test code = 2209) 9.6 MG/DL PROTEIN, TOTAL (test code = 2229) 7.3 G/DL ALBUMIN (test code = 2201) 4.7 G/DL CALC GLOBULIN (test code = 2240) 2.6 G/DL CALC A/G RATIO (test code = 2234) 1.8 RATIO BILIRUBIN, TOTAL (test code = 2207) <0.2 MG/DL ALKALINE PHOSPHATASE (test code = 2204) 88 U/L AST (test code = 2218) 12 U/L ALT (test code = 2219) 12 U/L LIPID [id number] 00:00:00* Test Item Value Reference Range Interpretation Comme nts CHOLESTEROL (test code = 2210) 346 MG/DL TRIGLYCERIDES (test code = 2232) 1167 MG/DL HDL CHOLESTEROL (test code = 2220) 37 MG/DL CALC LDL CHOL (test code = 2237) (NOTE) MG/DL RISK RATIO LDL/HDL (test cod e = 2238) (NOTE) RATIO LIPID [id number] 00:00:00* Test Item Value Reference Range Interpretation Comme nts CHOLESTEROL (test code = 2210) 346 MG/DL TRIGLYCERIDES (test code = 2232) 1167 MG/DL HDL CHOLESTEROL (test code = 2220) 37 MG/DL CALC LDL CHOL (test code = 2237) (NOTE) MG/DL RISK RATIO LDL/HDL (test cod e = 2238) (NOTE) RATIO COMPREHENSIVE METABOLIC [id number] 00:00:00* Test Item Value Reference Range Interpretation Comme nts GLUCOSE (test code = 2217) 127 MG/DL BUN (test code = 2208) 7 MG/DL CREATININE (test code = 2214) 0.53 MG/DL eGFR AMER. (test cod e = 32840) 132 ML/MIN/1.73 eGFR NON- AMER. (test code = 05491) 114 ML/MIN/1.73 CALC BUN/CREAT (test code = 2235) 13 RATIO SODIUM (test code = 2231) 143 MEQ/L POTASSIUM (test code = 2228) 4.8 MEQ/L CHLORIDE (test code = 2215) 103 MEQ/L CARBON DIOXIDE (test code = 2206) 24 MEQ/L CALCIUM (test code = 2209) 9.6 MG/DL PROTEIN, TOTAL (test code = 2229) 7.3 G/DL ALBUMIN (test code = 2201) 4.7 G/DL CALC GLOBULIN (test code = 2240) 2.6 G/DL CALC A/G RATIO (test code = 2234) 1.8 RATIO BILIRUBIN, TOTAL (test code = 2207) <0.2 MG/DL ALKALINE PHOSPHATASE (test code = 2204) 88 U/L AST (test code = 2218) 12 U/L ALT (test code = 2219) 12 U/L COMPREHENSIVE METABOLIC [id number] 00:00:00* Test Item Value Reference Range Interpretation Comme nts GLUCOSE (test code = 2217) 127 MG/DL BUN (test code = 2208) 7 MG/DL CREATININE (test code = 2214) 0.53 MG/DL eGFR AMER. (test cod e = 84711) 132 ML/MIN/1.73 eGFR NON- AMER. (test code = 41811) 114 ML/MIN/1.73 CALC BUN/CREAT (test code = 2235) 13 RATIO SODIUM (test code = 2231) 143 MEQ/L POTASSIUM (test code = 2228) 4.8 MEQ/L CHLORIDE (test code = 2215) 103 MEQ/L CARBON DIOXIDE (test code = 2206) 24 MEQ/L CALCIUM (test code = 2209) 9.6 MG/DL PROTEIN, TOTAL (test code = 2229) 7.3 G/DL ALBUMIN (test code = 2201) 4.7 G/DL CALC GLOBULIN (test code = 2240) 2.6 G/DL CALC A/G RATIO (test code = 2234) 1.8 RATIO BILIRUBIN, TOTAL (test code = 2207) <0.2 MG/DL ALKALINE PHOSPHATASE (test code = 2204) 88 U/L AST (test code = 2218) 12 U/L ALT (test code = 2219) 12 U/L HEMOGLOBIN [id number] 00:00:00* Test Item Value Reference Range Interpretation Comme nts HEMOGLOBIN A1c (test code = 22888) 7.8 % HEMOGLOBIN [id number] 00:00:00* Test Item Value Reference Range Interpretation Comme nts HEMOGLOBIN A1c (test code = 05977) 7.8 % HEMOGLOBIN [id number] 00:00:00* Test Item Value Reference Range Interpretation Comme nts HEMOGLOBIN A1c (test code = 45851) 7.8 % HEMOGLOBIN [id number] 00:00:00* Test Item Value Reference Range Interpretation Comme nts HEMOGLOBIN A1c (test code = 66366) 7.8 % HEMOGLOBIN [id number] 00:00:00* Test Item Value Reference Range Interpretation Comme nts HEMOGLOBIN A1c (test code = 88657) 7.8 % HEMOGLOBIN [id number] 00:00:00* Test Item Value Reference Range Interpretation Comme nts HEMOGLOBIN A1c (test code = 62238) 7.8 % HEMOGLOBIN [id number] 00:00:00* Test Item Value Reference Range Interpretation Comme nts HEMOGLOBIN A1c (test code = 49373) 7.8 % HEMOGLOBIN [id number] 00:00:00* Test Item Value Reference Range Interpretation Comme nts HEMOGLOBIN A1c (test code = 72401) 7.8 % CBC W/AUTO [id number] 00:00:00* Test Item Value Reference Range Interpretation Comme nts WBC (test code = 1001) 8.7 K/UL [...] code = 1015) 270 K/UL CBC W/AUTO [id number] 00:00:00* Test Item Value Reference Range Interpretation Comme nts WBC (test code = 1001) 8.7 K/UL [...] (test code = 1015) 270 K/UL HEMOGLOBIN [id number] 00:00:00* Test Item Value Reference Range Interpretation Comme nts HEMOGLOBIN A1c (test code = 78836) 8.8 % HEMOGLOBIN [id number] 00:00:00* Test Item Value Reference Range Interpretation Comme nts HEMOGLOBIN A1c (test code = 65033) 8.8 % COMPREHENSIVE METABOLIC [id number] 00:00:00* Test Item Value Reference Range Interpretation Comme nts GLUCOSE (test code = 2217) 236 MG/DL BUN (test code = 2208) 9 MG/DL CREATININE (test code = 2214) 0.47 MG/DL eGFR AMER. (test cod e = 26530) 137 ML/MIN/1.73 eGFR NON- AMER. (test code = 67255) 118 ML/MIN/1.73 CALC BUN/CREAT (test code = 2235) 19 RATIO SODIUM (test code = 2231) 138 MEQ/L POTASSIUM (test code = 2228) 4.2 MEQ/L CHLORIDE (test code = 2215) 101 MEQ/L CARBON DIOXIDE (test code = 2206) 25 MEQ/L CALCIUM (test code = 2209) 10.2 MG/DL PROTEIN, TOTAL (test code = 2229) 6.8 G/DL ALBUMIN (test code = 2201) 4.3 G/DL CALC GLOBULIN (test code = 2240) 2.5 G/DL CALC A/G RATIO (test code = 2234) 1.7 RATIO BILIRUBIN, TOTAL (test code = 2207) <0.2 MG/DL ALKALINE PHOSPHATASE (test code = 2204) 77 U/L AST (test code = 2218) 26 U/L ALT (test code = 2219) <5 U/L [id number] 00:00:00* Test Item Value Reference Range Interpretation Comme nts TSH, THIRD GENERATION (test code = 2821) 1.060 UIU/ML [id number] 00:00:00* Test Item Value Reference Range Interpretation Comme nts TSH, THIRD GENERATION (test code = 2821) 1.060 UIU/ML MICROALBUMIN/CREATININE, RANDOM AND [id number] 00:00:00* Test Item Value Reference Range Interpretation Comme nts CREATININE, URINE, CONC. (te st code = 2072) 83.5 MG/DL ALBUMIN, URINE, RANDOM (test code = 69385) 3.0 MG/DL CALC ALBUMIN/CREAT, RND (monique t code = 32972) 36 MG/G VITAMIN D, 25 [id number] 00:00:00* Test Item Value Reference Range Interpretation Comme nts VITAMIN D, 25 OH (test code = 4958) 12 NG/ML CBC W/AUTO [id number] 00:00:00* Test Item Value Reference Range Interpretation Comme nts WBC (test code = 1001) 8.7 K/UL [...] code = 1015) 270 K/UL CBC W/AUTO [id number] 00:00:00* Test Item Value Reference Range Interpretation Comme nts WBC (test code = 1001) 8.7 K/UL [...] code = 1015) 270 K/UL CBC W/AUTO [id number] 00:00:00* Test Item Value Reference Range Interpretation Comme nts WBC (test code = 1001) 8.7 K/UL [...] (test code = 1015) 270 K/UL HEMOGLOBIN [id number] 00:00:00* Test Item Value Reference Range Interpretation Comme nts HEMOGLOBIN A1c (test code = 88867) 8.8 % HEMOGLOBIN [id number] 00:00:00* Test Item Value Reference Range Interpretation Comme nts HEMOGLOBIN A1c (test code = 20557) 8.8 % HEMOGLOBIN [id number] 00:00:00* Test Item Value Reference Range Interpretation Comme nts HEMOGLOBIN A1c (test code = 99569) 8.8 % COMPREHENSIVE METABOLIC [id number] 00:00:00* Test Item Value Reference Range Interpretation Comme nts GLUCOSE (test code = 2217) 236 MG/DL BUN (test code = 2208) 9 MG/DL CREATININE (test code = 2214) 0.47 MG/DL eGFR AMER. (test cod e = 21504) 137 ML/MIN/1.73 eGFR NON- AMER. (test code = 49353) 118 ML/MIN/1.73 CALC BUN/CREAT (test code = 2235) 19 RATIO SODIUM (test code = 2231) 138 MEQ/L POTASSIUM (test code = 2228) 4.2 MEQ/L CHLORIDE (test code = 2215) 101 MEQ/L CARBON DIOXIDE (test code = 2206) 25 MEQ/L CALCIUM (test code = 2209) 10.2 MG/DL PROTEIN, TOTAL (test code = 2229) 6.8 G/DL ALBUMIN (test code = 2201) 4.3 G/DL CALC GLOBULIN (test code = 2240) 2.5 G/DL CALC A/G RATIO (test code = 2234) 1.7 RATIO BILIRUBIN, TOTAL (test code = 2207) <0.2 MG/DL ALKALINE PHOSPHATASE (test code = 2204) 77 U/L AST (test code = 2218) 26 U/L ALT (test code = 2219) <5 U/L COMPREHENSIVE METABOLIC [id number] 00:00:00* Test Item Value Reference Range Interpretation Comme nts GLUCOSE (test code = 2217) 236 MG/DL BUN (test code = 2208) 9 MG/DL CREATININE (test code = 2214) 0.47 MG/DL eGFR AMER. (test cod e = 97027) 137 ML/MIN/1.73 eGFR NON- AMER. (test code = 30290) 118 ML/MIN/1.73 CALC BUN/CREAT (test code = 2235) 19 RATIO SODIUM (test code = 2231) 138 MEQ/L POTASSIUM (test code = 2228) 4.2 MEQ/L CHLORIDE (test code = 2215) 101 MEQ/L CARBON DIOXIDE (test code = 2206) 25 MEQ/L CALCIUM (test code = 2209) 10.2 MG/DL PROTEIN, TOTAL (test code = 2229) 6.8 G/DL ALBUMIN (test code = 2201) 4.3 G/DL CALC GLOBULIN (test code = 2240) 2.5 G/DL CALC A/G RATIO (test code = 2234) 1.7 RATIO BILIRUBIN, TOTAL (test code = 2207) <0.2 MG/DL ALKALINE PHOSPHATASE (test code = 2204) 77 U/L AST (test code = 2218) 26 U/L ALT (test code = 2219) <5 U/L [id number] 00:00:00* Test Item Value Reference Range Interpretation Comme nts TSH, THIRD GENERATION (test code = 2821) 1.060 UIU/ML [id number] 00:00:00* Test Item Value Reference Range Interpretation Comme nts TSH, THIRD GENERATION (test code = 2821) 1.060 UIU/ML [id number] 00:00:00* Test Item Value Reference Range Interpretation Comme nts TSH, THIRD GENERATION (test code = 2821) 1.060 UIU/ML MICROALBUMIN/CREATININE, RANDOM AND [id number] 00:00:00* Test Item Value Reference Range Interpretation Comme nts CREATININE, URINE, CONC. (te st code = 2072) 83.5 MG/DL ALBUMIN, URINE, RANDOM (test code = 71675) 3.0 MG/DL CALC ALBUMIN/CREAT, RND (monique t code = 29701) 36 MG/G MICROALBUMIN/CREATININE, RANDOM AND [id number] 00:00:00* Test Item Value Reference Range Interpretation Comme nts CREATININE, URINE, CONC. (te st code = 2072) 83.5 MG/DL ALBUMIN, URINE, RANDOM (test code = 77337) 3.0 MG/DL CALC ALBUMIN/CREAT, RND (monique t code = 14643) 36 MG/G VITAMIN D, 25 [id number] 00:00:00* Test Item Value Reference Range Interpretation Comme nts VITAMIN D, 25 OH (test code = 4958) 12 NG/ML VITAMIN D, 25 [id number] 00:00:00* Test Item Value Reference Range Interpretation Comme [facility] VITAMIN D, 25 OH (test code = 4958) 12 NG/ML CBC W/AUTO [id number] 00:00:00* Test Item Value Reference Range Interpretation Comme nts WBC (test code = 1001) 8.7 K/UL [...] code = 1015) 270 K/UL CBC W/AUTO [id number] 00:00:00* Test Item Value Reference Range Interpretation Comme nts WBC (test code = 1001) 8.7 K/UL [...] code = 1015) 270 K/UL CBC W/AUTO [id number] 00:00:00* Test Item Value Reference Range Interpretation Comme nts WBC (test code = 1001) 8.7 K/UL [...] (test code = 1015) 270 K/UL HEMOGLOBIN [id number] 00:00:00* Test Item Value Reference Range Interpretation Comme nts HEMOGLOBIN A1c (test code = 75368) 8.8 % HEMOGLOBIN [id number] 00:00:00* Test Item Value Reference Range Interpretation Comme nts HEMOGLOBIN A1c (test code = 11102) 8.8 % HEMOGLOBIN [id number] 00:00:00* Test Item Value Reference Range Interpretation Comme nts HEMOGLOBIN A1c (test code = 64925) 8.8 % COMPREHENSIVE METABOLIC [id number] 00:00:00* Test Item Value Reference Range Interpretation Comme nts GLUCOSE (test code = 2217) 236 MG/DL BUN (test code = 2208) 9 MG/DL CREATININE (test code = 2214) 0.47 MG/DL eGFR AMER. (test cod e = 57008) 137 ML/MIN/1.73 eGFR NON- AMER. (test code = 88645) 118 ML/MIN/1.73 CALC BUN/CREAT (test code = 2235) 19 RATIO SODIUM (test code = 2231) 138 MEQ/L POTASSIUM (test code = 2228) 4.2 MEQ/L CHLORIDE (test code = 2215) 101 MEQ/L CARBON DIOXIDE (test code = 2206) 25 MEQ/L CALCIUM (test code = 2209) 10.2 MG/DL PROTEIN, TOTAL (test code = 2229) 6.8 G/DL ALBUMIN (test code = 2201) 4.3 G/DL CALC GLOBULIN (test code = 2240) 2.5 G/DL CALC A/G RATIO (test code = 2234) 1.7 RATIO BILIRUBIN, TOTAL (test code = 2207) <0.2 MG/DL ALKALINE PHOSPHATASE (test code = 2204) 77 U/L AST (test code = 2218) 26 U/L ALT (test code = 2219) <5 U/L COMPREHENSIVE METABOLIC [id number] 00:00:00* Test Item Value Reference Range Interpretation Comme nts GLUCOSE (test code = 2217) 236 MG/DL BUN (test code = 2208) 9 MG/DL CREATININE (test code = 2214) 0.47 MG/DL eGFR AMER. (test cod e = 84428) 137 ML/MIN/1.73 eGFR NON- AMER. (test code = 48035) 118 ML/MIN/1.73 CALC BUN/CREAT (test code = 2235) 19 RATIO SODIUM (test code = 2231) 138 MEQ/L POTASSIUM (test code = 2228) 4.2 MEQ/L CHLORIDE (test code = 2215) 101 MEQ/L CARBON DIOXIDE (test code = 2206) 25 MEQ/L CALCIUM (test code = 2209) 10.2 MG/DL PROTEIN, TOTAL (test code = 2229) 6.8 G/DL ALBUMIN (test code = 2201) 4.3 G/DL CALC GLOBULIN (test code = 2240) 2.5 G/DL CALC A/G RATIO (test code = 2234) 1.7 RATIO BILIRUBIN, TOTAL (test code = 2206) <0.2 MG/DL ALKALINE PHOSPHATASE (test code = 2203) 77 U/L AST (test code = 2217) 26 U/L ALT (test code = 2218) <5 U/L [id number] 00:00:00* Test Item Value Reference Range Interpretation Comme nts TSH, THIRD GENERATION (test code = 2821) 1.060 UIU/ML [id number] 00:00:00* Test Item Value Reference Range Interpretation Comme nts TSH, THIRD GENERATION (test code = 2821) 1.060 UIU/ML [id number] 00:00:00* Test Item Value Reference Range Interpretation Comme nts TSH, THIRD GENERATION (test code = 2821) 1.060 UIU/ML MICROALBUMIN/CREATININE, RANDOM AND [id number] 00:00:00* Test Item Value Reference Range Interpretation Comme nts CREATININE, URINE, CONC. (te st code = 2072) 83.5 MG/DL ALBUMIN, URINE, RANDOM (test code = 88434) 3.0 MG/DL CALC ALBUMIN/CREAT, RND (monique t code = 52366) 36 MG/G MICROALBUMIN/CREATININE, RANDOM AND [id number] 00:00:00* Test Item Value Reference Range Interpretation Comme nts CREATININE, URINE, CONC. (te st code = 207) 83.5 MG/DL ALBUMIN, URINE, RANDOM (test code = 23328) 3.0 MG/DL CALC ALBUMIN/CREAT, RND (monique t code = 26791) 36 MG/G VITAMIN D, 25 [id number] 00:00:00* Test Item Value Reference Range Interpretation Comme nts VITAMIN D, 25 OH (test code = 4958) 12 NG/ML VITAMIN D, 25 [id number] 00:00:00* Test Item Value Reference Range Interpretation Comme nts VITAMIN D, 25 OH (test code = 4958) 12 NG/ML SARS-CoV-2 (COVID-19) by RT-PCR (HIGH RISK)2020-03-24 00:00:00* Test Item Value Reference Range Interpretation Comme nts SARS-CoV-2 INTERPRETATION (t est code = 91257) NEGATIVE SOURCE (test code = 21059) NOT SPECIFIED SARS-CoV-2 (COVID-19) by RT-PCR (HIGH RISK)2020-03-24 00:00:00* Test Item Value Reference Range Interpretation Comme nts SARS-CoV-2 INTERPRETATION (t est code = 96134) NEGATIVE SOURCE (test code = 80401) NOT SPECIFIED SARS-CoV-2 (COVID-19) by RT-PCR (HIGH RISK)2020-03-24 00:00:00* Test Item Value Reference Range Interpretation Comme nts SARS-CoV-2 INTERPRETATION (t est code = 10023) NEGATIVE SOURCE (test code = 21175) NOT SPECIFIED SARS-CoV-2 (COVID-19) by RT-PCR (HIGH RISK)2020-03-24 00:00:00* Test Item Value Reference Range Interpretation Comme nts SARS-CoV-2 INTERPRETATION (t est code = 17643) NEGATIVE SOURCE (test code = 78544) NOT SPECIFIED SARS-CoV-2 (COVID-19) by RT-PCR (HIGH RISK)2020-03-24 00:00:00* Test Item Value Reference Range Interpretation Comme nts SARS-CoV-2 INTERPRETATION (t est code = 39997) NEGATIVE SOURCE (test code = 16609) NOT SPECIFIED LIPID [id number] 00:00:00* Test Item Value Reference Range Interpretation Comme nts CHOLESTEROL (test code = 2210) 235 MG/DL TRIGLYCERIDES (test code = 2232) 420 MG/DL HDL CHOLESTEROL (test code = 2220) 42 MG/DL CALC LDL CHOL (test code = 2237) (NOTE) MG/DL RISK RATIO LDL/HDL (test cod e = 2238) (NOTE) RATIO LIPID [id number] 00:00:00* Test Item Value Reference Range Interpretation Comme nts CHOLESTEROL (test code = 2210) 235 MG/DL TRIGLYCERIDES (test code = 2232) 420 MG/DL HDL CHOLESTEROL (test code = 2220) 42 MG/DL CALC LDL CHOL (test code = 2237) (NOTE) MG/DL RISK RATIO LDL/HDL (test cod e = 2238) (NOTE) RATIO LIPID [id number] 00:00:00* Test Item Value Reference Range Interpretation Comme nts CHOLESTEROL (test code = 2210) 235 MG/DL TRIGLYCERIDES (test code = 2232) 420 MG/DL HDL CHOLESTEROL (test code = 2220) 42 MG/DL CALC LDL CHOL (test code = 2237) (NOTE) MG/DL RISK RATIO LDL/HDL (test cod e = 2238) (NOTE) RATIO LIPID [id number] 00:00:00* Test Item Value Reference Range Interpretation Comme nts CHOLESTEROL (test code = 2210) 235 MG/DL TRIGLYCERIDES (test code = 2232) 420 MG/DL HDL CHOLESTEROL (test code = 2220) 42 MG/DL CALC LDL CHOL (test code = 2237) (NOTE) MG/DL RISK RATIO LDL/HDL (test cod e = 2238) (NOTE) RATIO LIPID [id number] 00:00:00* Test Item Value Reference Range Interpretation Comme nts CHOLESTEROL (test code = 2210) 235 MG/DL TRIGLYCERIDES (test code = 2232) 420 MG/DL HDL CHOLESTEROL (test code = 2220) 42 MG/DL CALC LDL CHOL (test code = 2237) (NOTE) MG/DL RISK RATIO LDL/HDL (test cod e = 2238) (NOTE) RATIO LIPID [id number] 00:00:00* Test Item Value Reference Range Interpretation Comme nts CHOLESTEROL (test code = 2210) 500 MG/DL TRIGLYCERIDES (test code = 2232) 2793 MG/DL HDL CHOLESTEROL (test code = 2220) 25 MG/DL CALC LDL CHOL (test code = 2237) (NOTE) MG/DL RISK RATIO LDL/HDL (test cod e = 2238) (NOTE) RATIO COMPREHENSIVE METABOLIC [id number] 00:00:00* Test Item Value Reference Range Interpretation Comme nts GLUCOSE (test code = 2217) 287 MG/DL BUN (test code = 2208) 7 MG/DL CREATININE (test code = 2214) 0.57 MG/DL eGFR AMER. (test cod e = 41472) 129 ML/MIN/1.73 eGFR NON- AMER. (test code = 58064) 111 ML/MIN/1.73 CALC BUN/CREAT (test code = 2235) 12 RATIO SODIUM (test code = 2231) 133 MEQ/L POTASSIUM (test code = 2228) 4.5 MEQ/L CHLORIDE (test code = 2215) 96 MEQ/L CARBON DIOXIDE (test code = 2206) 24 MEQ/L CALCIUM (test code = 2209) 10.0 MG/DL PROTEIN, TOTAL (test code = 2229) 7.5 G/DL ALBUMIN (test code = 2201) 4.6 G/DL CALC GLOBULIN (test code = 2240) 2.9 G/DL CALC A/G RATIO (test code = 2234) 1.6 RATIO BILIRUBIN, TOTAL (test code = 2207) 0.4 MG/DL ALKALINE PHOSPHATASE (test code = 2204) 103 U/L AST (test code = 2218) 30 U/L ALT (test code = 2219) <5 U/L HEMOGLOBIN [id number] 00:00:00* Test Item Value Reference Range Interpretation Comme nts HEMOGLOBIN A1c (test code = 50729) 9.2 % HEMOGLOBIN [id number] 00:00:00* Test Item Value Reference Range Interpretation Comme nts HEMOGLOBIN A1c (test code = 71362) 9.2 % HEMOGLOBIN [id number] 00:00:00* Test Item Value Reference Range Interpretation Comme nts HEMOGLOBIN A1c (test code = 95977) 9.2 % LIPID [id number] 00:00:00* Test Item Value Reference Range Interpretation Comme nts CHOLESTEROL (test code = 2210) 500 MG/DL TRIGLYCERIDES (test code = 2232) 2793 MG/DL HDL CHOLESTEROL (test code = 2220) 25 MG/DL CALC LDL CHOL (test code = 2237) (NOTE) MG/DL RISK RATIO LDL/HDL (test cod e = 2238) (NOTE) RATIO LIPID [id number] 00:00:00* Test Item Value Reference Range Interpretation Comme nts CHOLESTEROL (test code = 2210) 500 MG/DL TRIGLYCERIDES (test code = 2232) 2793 MG/DL HDL CHOLESTEROL (test code = 2220) 25 MG/DL CALC LDL CHOL (test code = 2237) (NOTE) MG/DL RISK RATIO LDL/HDL (test cod e = 2238) (NOTE) RATIO COMPREHENSIVE METABOLIC [id number] 00:00:00* Test Item Value Reference Range Interpretation Comme nts GLUCOSE (test code = 2217) 287 MG/DL BUN (test code = 2208) 7 MG/DL CREATININE (test code = 2214) 0.57 MG/DL eGFR AMER. (test cod e = 96642) 129 ML/MIN/1.73 eGFR NON- AMER. (test code = 89365) 111 ML/MIN/1.73 CALC BUN/CREAT (test code = 2235) 12 RATIO SODIUM (test code = 2231) 133 MEQ/L POTASSIUM (test code = 2228) 4.5 MEQ/L CHLORIDE (test code = 2215) 96 MEQ/L CARBON DIOXIDE (test code = 2206) 24 MEQ/L CALCIUM (test code = 2209) 10.0 MG/DL PROTEIN, TOTAL (test code = 2229) 7.5 G/DL ALBUMIN (test code = 2201) 4.6 G/DL CALC GLOBULIN (test code = 2240) 2.9 G/DL CALC A/G RATIO (test code = 2234) 1.6 RATIO BILIRUBIN, TOTAL (test code = 2207) 0.4 MG/DL ALKALINE PHOSPHATASE (test code = 2204) 103 U/L AST (test code = 2218) 30 U/L ALT (test code = 2219) <5 U/L COMPREHENSIVE METABOLIC [id number] 00:00:00* Test Item Value Reference Range Interpretation Comme nts GLUCOSE (test code = 2217) 287 MG/DL BUN (test code = 2208) 7 MG/DL CREATININE (test code = 2214) 0.57 MG/DL eGFR AMER. (test cod e = 23064) 129 ML/MIN/1.73 eGFR NON- AMER. (test code = 42346) 111 ML/MIN/1.73 CALC BUN/CREAT (test code = 2235) 12 RATIO SODIUM (test code = 2231) 133 MEQ/L POTASSIUM (test code = 2228) 4.5 MEQ/L CHLORIDE (test code = 2215) 96 MEQ/L CARBON DIOXIDE (test code = 2206) 24 MEQ/L CALCIUM (test code = 2209) 10.0 MG/DL PROTEIN, TOTAL (test code = 2229) 7.5 G/DL ALBUMIN (test code = 2201) 4.6 G/DL CALC GLOBULIN (test code = 2240) 2.9 G/DL CALC A/G RATIO (test code = 2234) 1.6 RATIO BILIRUBIN, TOTAL (test code = 2207) 0.4 MG/DL ALKALINE PHOSPHATASE (test code = 2204) 103 U/L AST (test code = 2218) 30 U/L ALT (test code = 2219) <5 U/L HEMOGLOBIN [id number] 00:00:00* Test Item Value Reference Range Interpretation Comme nts HEMOGLOBIN A1c (test code = 95989) 9.2 % HEMOGLOBIN [id number] 00:00:00* Test Item Value Reference Range Interpretation Comme nts HEMOGLOBIN A1c (test code = 72593) 9.2 % HEMOGLOBIN [id number] 00:00:00* Test Item Value Reference Range Interpretation Comme nts HEMOGLOBIN A1c (test code = 63567) 9.2 % LIPID [id number] 00:00:00* Test Item Value Reference Range Interpretation Comme nts CHOLESTEROL (test code = 2210) 500 MG/DL TRIGLYCERIDES (test code = 2232) 2793 MG/DL HDL CHOLESTEROL (test code = 2220) 25 MG/DL CALC LDL CHOL (test code = 2237) (NOTE) MG/DL RISK RATIO LDL/HDL (test cod e = 2238) (NOTE) RATIO LIPID [id number] 00:00:00* Test Item Value Reference Range Interpretation Comme nts CHOLESTEROL (test code = 2210) 500 MG/DL TRIGLYCERIDES (test code = 2232) 2793 MG/DL HDL CHOLESTEROL (test code = 2220) 25 MG/DL CALC LDL CHOL (test code = 2237) (NOTE) MG/DL RISK RATIO LDL/HDL (test cod e = 2238) (NOTE) RATIO COMPREHENSIVE METABOLIC [id number] 00:00:00* Test Item Value Reference Range Interpretation Comme nts GLUCOSE (test code = 2217) 287 MG/DL BUN (test code = 2208) 7 MG/DL CREATININE (test code = 2214) 0.57 MG/DL eGFR AMER. (test cod e = 44829) 129 ML/MIN/1.73 eGFR NON- AMER. (test code = 94201) 111 ML/MIN/1.73 CALC BUN/CREAT (test code = 2235) 12 RATIO SODIUM (test code = 2231) 133 MEQ/L POTASSIUM (test code = 2228) 4.5 MEQ/L CHLORIDE (test code = 2215) 96 MEQ/L CARBON DIOXIDE (test code = 2206) 24 MEQ/L CALCIUM (test code = 2209) 10.0 MG/DL PROTEIN, TOTAL (test code = 2229) 7.5 G/DL ALBUMIN (test code = 2201) 4.6 G/DL CALC GLOBULIN (test code = 2240) 2.9 G/DL CALC A/G RATIO (test code = 2234) 1.6 RATIO BILIRUBIN, TOTAL (test code = 2207) 0.4 MG/DL ALKALINE PHOSPHATASE (test code = 2204) 103 U/L AST (test code = 2218) 30 U/L ALT (test code = 2219) <5 U/L COMPREHENSIVE METABOLIC [id number] 00:00:00* Test Item Value Reference Range Interpretation Comme nts GLUCOSE (test code = 2217) 287 MG/DL BUN (test code = 2208) 7 MG/DL CREATININE (test code = 2214) 0.57 MG/DL eGFR AMER. (test cod e = 45794) 129 ML/MIN/1.73 eGFR NON- AMER. (test code = 74837) 111 ML/MIN/1.73 CALC BUN/CREAT (test code = 2235) 12 RATIO SODIUM (test code = 2231) 133 MEQ/L POTASSIUM (test code = 2228) 4.5 MEQ/L CHLORIDE (test code = 2215) 96 MEQ/L CARBON DIOXIDE (test code = 2206) 24 MEQ/L CALCIUM (test code = 2209) 10.0 MG/DL PROTEIN, TOTAL (test code = 2229) 7.5 G/DL ALBUMIN (test code = 2201) 4.6 G/DL CALC GLOBULIN (test code = 2240) 2.9 G/DL CALC A/G RATIO (test code = 2234) 1.6 RATIO BILIRUBIN, TOTAL (test code = 2207) 0.4 MG/DL ALKALINE PHOSPHATASE (test code = 2204) 103 U/L AST (test code = 2218) 30 U/L ALT (test code = 2219) <5 U/L HEMOGLOBIN [id number] 00:00:00* Test Item Value Reference Range Interpretation Comme nts HEMOGLOBIN A1c (test code = 22303) 9.2 % HEMOGLOBIN [id number] 00:00:00* Test Item Value Reference Range Interpretation Comme nts HEMOGLOBIN A1c (test code = 69782) 9.2 % SARS-CoV-2 (COVID-19) by RT-PCR (HIGH RISK)2019-12-14 00:00:00* Test Item Value Reference Range Interpretation Comme nts SARS-CoV-2 INTERPRETATION (test code = 47756) Positive SOURCE (test code = 41809) NASOPHARYNGEA L_SWAB _IN_VTM__UTM SARS-CoV-2 (COVID-19) by RT-PCR (HIGH RISK)2019-12-14 00:00:00* Test Item Value Reference Range Interpretation Comme nts SARS-CoV-2 INTERPRETATION (test code = 19934) Positive SOURCE (test code = 24742) NASOPHARYNGEA L_SWAB _IN_VTM__UTM SARS-CoV-2 (COVID-19) by RT-PCR (HIGH RISK)2019-12-14 00:00:00* Test Item Value Reference Range Interpretation Comme nts SARS-CoV-2 INTERPRETATION (test code = 10750) Positive SOURCE (test code = 84424) NASOPHARYNGEA L_SWAB _IN_VTM__UTM SARS-CoV-2 (COVID-19) by RT-PCR (HIGH RISK)2019-12-01 00:00:00* Test Item Value Reference Range Interpretation Comme nts SARS-CoV-2 INTERPRETATION (test code = 28373) Positive SOURCE (test code = 12201) Nasal_Swab_in _VTM__ UTM SARS-CoV-2 (COVID-19) by RT-PCR (HIGH RISK)2019-12-01 00:00:00* Test Item Value Reference Range Interpretation Comme nts SARS-CoV-2 INTERPRETATION (test code = 12939) Positive SOURCE (test code = 88190) Nasal_Swab_in _VTM__ UTM SARS-CoV-2 (COVID-19) by RT-PCR (HIGH RISK)2019-12-01 00:00:00* Test Item Value Reference Range Interpretation Comme nts SARS-CoV-2 INTERPRETATION (test code = 14691) Positive SOURCE (test code = 41775) Nasal_Swab_in _VTM__ UTM SARS-CoV-2 (COVID-19) by RT-PCR (HIGH RISK)2019-09-01 00:00:00* Test Item Value Reference Range Interpretation Comme nts SARS-CoV-2 INTERPRETATION (t est code = 62393) NEGATIVE SOURCE (test code = 20876) NOT SPECIFIED SARS-CoV-2 (COVID-19) by RT-PCR (HIGH RISK)2019-09-01 00:00:00* Test Item Value Reference Range Interpretation Comme nts SARS-CoV-2 INTERPRETATION (t est code = 48449) NEGATIVE SOURCE (test code = 68991) NOT SPECIFIED SARS-CoV-2 (COVID-19) by RT-PCR (HIGH RISK)2019-09-01 00:00:00* Test Item Value Reference Range Interpretation Comme nts SARS-CoV-2 INTERPRETATION (t est code = 46373) NEGATIVE SOURCE (test code = 70725) NOT SPECIFIED SARS-CoV-2 (COVID-19) by RT-PCR (HIGH RISK)2019-09-01 00:00:00* Test Item Value Reference Range Interpretation Comme nts SARS-CoV-2 INTERPRETATION (t est code = 93374) NEGATIVE SOURCE (test code = 67412) NOT SPECIFIED SARS-CoV-2 (COVID-19) by RT-PCR (HIGH RISK)2019-09-01 00:00:00* Test Item Value Reference Range Interpretation Comme nts SARS-CoV-2 INTERPRETATION (t est code = 87897) NEGATIVE SOURCE (test code = 36043) NOT SPECIFIED HEMOGLOBIN [id number] 00:00:00* Test Item Value Reference Range Interpretation Comme nts HEMOGLOBIN A1c (test code = 01177) 8.1 % LIPID [id number] 00:00:00* Test Item Value Reference Range Interpretation Comme nts CHOLESTEROL (test code = 2210) 336 MG/DL TRIGLYCERIDES (test code = 2232) 1678 MG/DL HDL CHOLESTEROL (test code = 2220) 28 MG/DL CALC LDL CHOL (test code = 2237) (NOTE) MG/DL RISK RATIO LDL/HDL (test cod e = 2238) (NOTE) RATIO COMPREHENSIVE METABOLIC [id number] 00:00:00* Test Item Value Reference Range Interpretation Comme nts GLUCOSE (test code = 2217) 175 MG/DL BUN (test code = 2208) 8 MG/DL CREATININE (test code = 2214) 0.53 MG/DL eGFR AMER. (test cod e = 33643) 133 ML/MIN/1.73 eGFR NON- AMER. (test code = 22167) 115 ML/MIN/1.73 CALC BUN/CREAT (test code = 2235) 15 RATIO SODIUM (test code = 2231) 136 MEQ/L POTASSIUM (test code = 2228) 4.2 MEQ/L CHLORIDE (test code = 2215) 99 MEQ/L CARBON DIOXIDE (test code = 2206) 24 MEQ/L CALCIUM (test code = 2209) 9.5 MG/DL PROTEIN, TOTAL (test code = 2229) 6.7 G/DL ALBUMIN (test code = 2201) 4.2 G/DL CALC GLOBULIN (test code = 2240) 2.5 G/DL CALC A/G RATIO (test code = 2234) 1.7 RATIO BILIRUBIN, TOTAL (test code = 2207) 0.3 MG/DL ALKALINE PHOSPHATASE (test code = 2204) 87 U/L AST (test code = 2218) 21 U/L ALT (test code = 2219) 25 U/L HEMOGLOBIN [id number] 00:00:00* Test Item Value Reference Range Interpretation Comme nts HEMOGLOBIN A1c (test code = 73164) 8.1 % HEMOGLOBIN [id number] 00:00:00* Test Item Value Reference Range Interpretation Comme nts HEMOGLOBIN A1c (test code = 15659) 8.1 % HEMOGLOBIN [id number] 00:00:00* Test Item Value Reference Range Interpretation Comme nts HEMOGLOBIN A1c (test code = 12433) 8.1 % LIPID [id number] 00:00:00* Test Item Value Reference Range Interpretation Comme nts CHOLESTEROL (test code = 2210) 336 MG/DL TRIGLYCERIDES (test code = 2232) 1678 MG/DL HDL CHOLESTEROL (test code = 2220) 28 MG/DL CALC LDL CHOL (test code = 2237) (NOTE) MG/DL RISK RATIO LDL/HDL (test cod e = 2238) (NOTE) RATIO LIPID [id number] 00:00:00* Test Item Value Reference Range Interpretation Comme nts CHOLESTEROL (test code = 2210) 336 MG/DL TRIGLYCERIDES (test code = 2232) 1678 MG/DL HDL CHOLESTEROL (test code = 2220) 28 MG/DL CALC LDL CHOL (test code = 2237) (NOTE) MG/DL RISK RATIO LDL/HDL (test cod e = 2238) (NOTE) RATIO COMPREHENSIVE METABOLIC [id number] 00:00:00* Test Item Value Reference Range Interpretation Comme nts GLUCOSE (test code = 2217) 175 MG/DL BUN (test code = 2208) 8 MG/DL CREATININE (test code = 2214) 0.53 MG/DL eGFR AMER. (test cod e = 47985) 133 ML/MIN/1.73 eGFR NON- AMER. (test code = 37942) 115 ML/MIN/1.73 CALC BUN/CREAT (test code = 2235) 15 RATIO SODIUM (test code = 2231) 136 MEQ/L POTASSIUM (test code = 2228) 4.2 MEQ/L CHLORIDE (test code = 2215) 99 MEQ/L CARBON DIOXIDE (test code = 2206) 24 MEQ/L CALCIUM (test code = 2209) 9.5 MG/DL PROTEIN, TOTAL (test code = 2229) 6.7 G/DL ALBUMIN (test code = 2201) 4.2 G/DL CALC GLOBULIN (test code = 2240) 2.5 G/DL CALC A/G RATIO (test code = 2234) 1.7 RATIO BILIRUBIN, TOTAL (test code = 2207) 0.3 MG/DL ALKALINE PHOSPHATASE (test code = 2204) 87 U/L AST (test code = 2218) 21 U/L ALT (test code = 2219) 25 U/L COMPREHENSIVE METABOLIC [id number] 00:00:00* Test Item Value Reference Range Interpretation Comme nts GLUCOSE (test code = 2217) 175 MG/DL BUN (test code = 2208) 8 MG/DL CREATININE (test code = 2214) 0.53 MG/DL eGFR AMER. (test cod e = 54882) 133 ML/MIN/1.73 eGFR NON- AMER. (test code = 28901) 115 ML/MIN/1.73 CALC BUN/CREAT (test code = 2235) 15 RATIO SODIUM (test code = 2231) 136 MEQ/L POTASSIUM (test code = 2228) 4.2 MEQ/L CHLORIDE (test code = 2215) 99 MEQ/L CARBON DIOXIDE (test code = 2206) 24 MEQ/L CALCIUM (test code = 2209) 9.5 MG/DL PROTEIN, TOTAL (test code = 2229) 6.7 G/DL ALBUMIN (test code = 2201) 4.2 G/DL CALC GLOBULIN (test code = 2240) 2.5 G/DL CALC A/G RATIO (test code = 2234) 1.7 RATIO BILIRUBIN, TOTAL (test code = 2207) 0.3 MG/DL ALKALINE PHOSPHATASE (test code = 2204) 87 U/L AST (test code = 2218) 21 U/L ALT (test code = 2219) 25 U/L HEMOGLOBIN [id number] 00:00:00* Test Item Value Reference Range Interpretation Comme nts HEMOGLOBIN A1c (test code = 72993) 8.1 % HEMOGLOBIN [id number] 00:00:00* Test Item Value Reference Range Interpretation Comme nts HEMOGLOBIN A1c (test code = 47999) 8.1 % HEMOGLOBIN [id number] 00:00:00* Test Item Value Reference Range Interpretation Comme nts HEMOGLOBIN A1c (test code = 54153) 8.1 % LIPID [id number] 00:00:00* Test Item Value Reference Range Interpretation Comme nts CHOLESTEROL (test code = 2210) 336 MG/DL TRIGLYCERIDES (test code = 2232) 1678 MG/DL HDL CHOLESTEROL (test code = 2220) 28 MG/DL CALC LDL CHOL (test code = 2237) (NOTE) MG/DL RISK RATIO LDL/HDL (test cod e = 2238) (NOTE) RATIO LIPID [id number] 00:00:00* Test Item Value Reference Range Interpretation Comme nts CHOLESTEROL (test code = 2210) 336 MG/DL TRIGLYCERIDES (test code = 2232) 1678 MG/DL HDL CHOLESTEROL (test code = 2220) 28 MG/DL CALC LDL CHOL (test code = 2237) (NOTE) MG/DL RISK RATIO LDL/HDL (test cod e = 2238) (NOTE) RATIO COMPREHENSIVE METABOLIC [id number] 00:00:00* Test Item Value Reference Range Interpretation Comme nts GLUCOSE (test code = 2217) 175 MG/DL BUN (test code = 2208) 8 MG/DL CREATININE (test code = 2214) 0.53 MG/DL eGFR AMER. (test cod e = 88047) 133 ML/MIN/1.73 eGFR NON- AMER. (test code = 81047) 115 ML/MIN/1.73 CALC BUN/CREAT (test code = 2235) 15 RATIO SODIUM (test code = 2231) 136 MEQ/L POTASSIUM (test code = 2228) 4.2 MEQ/L CHLORIDE (test code = 2215) 99 MEQ/L CARBON DIOXIDE (test code = 2206) 24 MEQ/L CALCIUM (test code = 2209) 9.5 MG/DL PROTEIN, TOTAL (test code = 2229) 6.7 G/DL ALBUMIN (test code = 2201) 4.2 G/DL CALC GLOBULIN (test code = 2240) 2.5 G/DL CALC A/G RATIO (test code = 2234) 1.7 RATIO BILIRUBIN, TOTAL (test code = 2207) 0.3 MG/DL ALKALINE PHOSPHATASE (test code = 2204) 87 U/L AST (test code = 2218) 21 U/L ALT (test code = 2219) 25 U/L COMPREHENSIVE METABOLIC [id number] 00:00:00* Test Item Value Reference Range Interpretation Comme nts GLUCOSE (test code = 2217) 175 MG/DL BUN (test code = 2208) 8 MG/DL CREATININE (test code = 2214) 0.53 MG/DL eGFR AMER. (test cod e = 18118) 133 ML/MIN/1.73 eGFR NON- AMER. (test code = 20284) 115 ML/MIN/1.73 CALC BUN/CREAT (test code = 2235) 15 RATIO SODIUM (test code = 2231) 136 MEQ/L POTASSIUM (test code = 2228) 4.2 MEQ/L CHLORIDE (test code = 2215) 99 MEQ/L CARBON DIOXIDE (test code = 2206) 24 MEQ/L CALCIUM (test code = 2209) 9.5 MG/DL PROTEIN, TOTAL (test code = 2229) 6.7 G/DL ALBUMIN (test code = 2201) 4.2 G/DL CALC GLOBULIN (test code = 2240) 2.5 G/DL CALC A/G RATIO (test code = 2234) 1.7 RATIO BILIRUBIN, TOTAL (test code = 2207) 0.3 MG/DL ALKALINE PHOSPHATASE (test code = 2204) 87 U/L AST (test code = 2218) 21 U/L ALT (test code = 2219) 25 U/L HEMOGLOBIN [id number] 00:00:00* Test Item Value Reference Range Interpretation Comme nts HEMOGLOBIN A1c (test code = 79636) 8.1 % COMPREHENSIVE METABOLIC [id number] 00:00:00* Test Item Value Reference Range Interpretation Comme nts GLUCOSE (test code = 2217) 286 MG/DL BUN (test code = 2208) 9 MG/DL CREATININE (test code = 2214) 0.56 MG/DL eGFR AMER. (test cod e = 50574) 131 ML/MIN/1.73 eGFR NON- AMER. (test code = 73028) 113 ML/MIN/1.73 CALC BUN/CREAT (test code = 2235) 16 RATIO SODIUM (test code = 2231) 137 MEQ/L POTASSIUM (test code = 2228) 4.3 MEQ/L CHLORIDE (test code = 2215) 96 MEQ/L CARBON DIOXIDE (test code = 2206) 27 MEQ/L CALCIUM (test code = 2209) 9.1 MG/DL PROTEIN, TOTAL (test code = 2229) 6.6 G/DL ALBUMIN (test code = 2201) 4.1 G/DL CALC GLOBULIN (test code = 2240) 2.5 G/DL CALC A/G RATIO (test code = 2234) 1.6 RATIO BILIRUBIN, TOTAL (test code = 2207) 0.3 MG/DL ALKALINE PHOSPHATASE (test code = 2204) 105 U/L AST (test code = 2218) 6 U/L ALT (test code = 2219) <5 U/L COMPREHENSIVE METABOLIC [id number] 00:00:00* Test Item Value Reference Range Interpretation Comme nts GLUCOSE (test code = 2217) 286 MG/DL BUN (test code = 2208) 9 MG/DL CREATININE (test code = 2214) 0.56 MG/DL eGFR AMER. (test cod e = 88998) 131 ML/MIN/1.73 eGFR NON- AMER. (test code = 64296) 113 ML/MIN/1.73 CALC BUN/CREAT (test code = 2235) 16 RATIO SODIUM (test code = 2231) 137 MEQ/L POTASSIUM (test code = 2228) 4.3 MEQ/L CHLORIDE (test code = 2215) 96 MEQ/L CARBON DIOXIDE (test code = 2206) 27 MEQ/L CALCIUM (test code = 2209) 9.1 MG/DL PROTEIN, TOTAL (test code = 2229) 6.6 G/DL ALBUMIN (test code = 2201) 4.1 G/DL CALC GLOBULIN (test code = 2240) 2.5 G/DL CALC A/G RATIO (test code = 2234) 1.6 RATIO BILIRUBIN, TOTAL (test code = 2207) 0.3 MG/DL ALKALINE PHOSPHATASE (test code = 2204) 105 U/L AST (test code = 2218) 6 U/L ALT (test code = 2219) <5 U/L COMPREHENSIVE METABOLIC [id number] 00:00:00* Test Item Value Reference Range Interpretation Comme nts GLUCOSE (test code = 2217) 286 MG/DL BUN (test code = 2208) 9 MG/DL CREATININE (test code = 2214) 0.56 MG/DL eGFR AMER. (test cod e = 62409) 131 ML/MIN/1.73 eGFR NON- AMER. (test code = 77628) 113 ML/MIN/1.73 CALC BUN/CREAT (test code = 2235) 16 RATIO SODIUM (test code = 2231) 137 MEQ/L POTASSIUM (test code = 2228) 4.3 MEQ/L CHLORIDE (test code = 2215) 96 MEQ/L CARBON DIOXIDE (test code = 2206) 27 MEQ/L CALCIUM (test code = 2209) 9.1 MG/DL PROTEIN, TOTAL (test code = 2229) 6.6 G/DL ALBUMIN (test code = 2201) 4.1 G/DL CALC GLOBULIN (test code = 2240) 2.5 G/DL CALC A/G RATIO (test code = 2234) 1.6 RATIO BILIRUBIN, TOTAL (test code = 2207) 0.3 MG/DL ALKALINE PHOSPHATASE (test code = 2204) 105 U/L AST (test code = 2218) 6 U/L ALT (test code = 2219) <5 U/L COMPREHENSIVE METABOLIC [id number] 00:00:00* Test Item Value Reference Range Interpretation Comme nts GLUCOSE (test code = 2217) 286 MG/DL BUN (test code = 2208) 9 MG/DL CREATININE (test code = 2214) 0.56 MG/DL eGFR AMER. (test cod e = 37939) 131 ML/MIN/1.73 eGFR NON- AMER. (test code = 56360) 113 ML/MIN/1.73 CALC BUN/CREAT (test code = 2235) 16 RATIO SODIUM (test code = 2231) 137 MEQ/L POTASSIUM (test code = 2228) 4.3 MEQ/L CHLORIDE (test code = 2215) 96 MEQ/L CARBON DIOXIDE (test code = 2206) 27 MEQ/L CALCIUM (test code = 2209) 9.1 MG/DL PROTEIN, TOTAL (test code = 2229) 6.6 G/DL ALBUMIN (test code = 2201) 4.1 G/DL CALC GLOBULIN (test code = 2240) 2.5 G/DL CALC A/G RATIO (test code = 2234) 1.6 RATIO BILIRUBIN, TOTAL (test code = 2207) 0.3 MG/DL ALKALINE PHOSPHATASE (test code = 2204) 105 U/L AST (test code = 2218) 6 U/L ALT (test code = 2219) <5 U/L COMPREHENSIVE METABOLIC [id number] 00:00:00* Test Item Value Reference Range Interpretation Comme nts GLUCOSE (test code = 2217) 286 MG/DL BUN (test code = 2208) 9 MG/DL CREATININE (test code = 2214) 0.56 MG/DL eGFR AMER. (test cod e = 45702) 131 ML/MIN/1.73 eGFR NON- AMER. (test code = 82756) 113 ML/MIN/1.73 CALC BUN/CREAT (test code = 2235) 16 RATIO SODIUM (test code = 2231) 137 MEQ/L POTASSIUM (test code = 2228) 4.3 MEQ/L CHLORIDE (test code = 2215) 96 MEQ/L CARBON DIOXIDE (test code = 2206) 27 MEQ/L CALCIUM (test code = 2209) 9.1 MG/DL PROTEIN, TOTAL (test code = 2229) 6.6 G/DL ALBUMIN (test code = 2201) 4.1 G/DL CALC GLOBULIN (test code = 2240) 2.5 G/DL CALC A/G RATIO (test code = 2234) 1.6 RATIO BILIRUBIN, TOTAL (test code = 2207) 0.3 MG/DL ALKALINE PHOSPHATASE (test code = 2204) 105 U/L AST (test code = 2218) 6 U/L ALT (test code = 2219) <5 U/L MICROALBUMIN/CREATININE, RANDOM AND [id number] 00:00:00* Test Item Value Reference Range Interpretation Comme nts CREATININE, URINE, CONC. (te st code = 2071) 112.4 MG/DL ALBUMIN, URINE, RANDOM (test code = 41723) 9.2 MG/DL CALC ALBUMIN/CREAT, RND (monique t code = 05392) 82 MG/G HEMOGLOBIN [id number] 00:00:00* Test Item Value Reference Range Interpretation Comme nts HEMOGLOBIN A1c (test code = 61745) 7.5 % HEMOGLOBIN [id number] 00:00:00* Test Item Value Reference Range Interpretation Comme nts HEMOGLOBIN A1c (test code = 89063) 7.5 % HEMOGLOBIN [id number] 00:00:00* Test Item Value Reference Range Interpretation Comme nts HEMOGLOBIN A1c (test code = 24122) 7.5 % MICROALBUMIN/CREATININE, RANDOM AND [id number] 00:00:00* Test Item Value Reference Range Interpretation Comme nts CREATININE, URINE, CONC. (te st code = 2071) 112.4 MG/DL ALBUMIN, URINE, RANDOM (test code = 83606) 9.2 MG/DL CALC ALBUMIN/CREAT, RND (monique t code = 61387) 82 MG/G MICROALBUMIN/CREATININE, RANDOM AND [id number] 00:00:00* Test Item Value Reference Range Interpretation Comme nts CREATININE, URINE, CONC. (te st code = 2071) 112.4 MG/DL ALBUMIN, URINE, RANDOM (test code = 76193) 9.2 MG/DL CALC ALBUMIN/CREAT, RND (monique t code = 03053) 82 MG/G HEMOGLOBIN [id number] 00:00:00* Test Item Value Reference Range Interpretation Comme nts HEMOGLOBIN A1c (test code = 04565) 7.5 % HEMOGLOBIN [id number] 00:00:00* Test Item Value Reference Range Interpretation Comme nts HEMOGLOBIN A1c (test code = 73130) 7.5 % HEMOGLOBIN [id number] 00:00:00* Test Item Value Reference Range Interpretation Comme nts HEMOGLOBIN A1c (test code = 43382) 7.5 % MICROALBUMIN/CREATININE, RANDOM AND [id number] 00:00:00* Test Item Value Reference Range Interpretation Comme nts CREATININE, URINE, CONC. (te st code = 2072) 112.4 MG/DL ALBUMIN, URINE, RANDOM (test code = 28723) 9.2 MG/DL CALC ALBUMIN/CREAT, RND (monique t code = 41016) 82 MG/G MICROALBUMIN/CREATININE, RANDOM AND [id number] 00:00:00* Test Item Value Reference Range Interpretation Comme nts CREATININE, URINE, CONC. (te st code = 207) 112.4 MG/DL ALBUMIN, URINE, RANDOM (test code = 18321) 9.2 MG/DL CALC ALBUMIN/CREAT, RND (monique t code = 66309) 82 MG/G HEMOGLOBIN [id number] 00:00:00* Test Item Value Reference Range Interpretation Comme nts HEMOGLOBIN A1c (test code = 52068) 7.5 % HEMOGLOBIN [id number] 00:00:00* Test Item Value Reference Range Interpretation Comme nts HEMOGLOBIN A1c (test code = 87909) 7.5 % HEMOGLOBIN [id number] 00:00:00* Test Item Value Reference Range Interpretation Comme nts HEMOGLOBIN A1c (test code = 19119) 8.2 % HEMOGLOBIN [id number] 00:00:00* Test Item Value Reference Range Interpretation Comme nts HEMOGLOBIN A1c (test code = 68090) 8.2 % MICROALBUMIN/CREATININE, RANDOM AND [id number] 00:00:00* Test Item Value Reference Range Interpretation Comme nts CREATININE, URINE, CONC. (te st code = 2072) 95.3 MG/DL ALBUMIN, URINE, RANDOM (test code = 95605) 15.6 MG/DL CALC ALBUMIN/CREAT, RND (monique t code = 81717) 164 MG/G HEMOGLOBIN [id number] 00:00:00* Test Item Value Reference Range Interpretation Comme nts HEMOGLOBIN A1c (test code = 98623) 8.2 % HEMOGLOBIN [id number] 00:00:00* Test Item Value Reference Range Interpretation Comme nts HEMOGLOBIN A1c (test code = 59114) 8.2 % HEMOGLOBIN [id number] 00:00:00* Test Item Value Reference Range Interpretation Comme nts HEMOGLOBIN A1c (test code = 15959) 8.2 % MICROALBUMIN/CREATININE, RANDOM AND [id number] 00:00:00* Test Item Value Reference Range Interpretation Comme nts CREATININE, URINE, CONC. (te st code = 207) 95.3 MG/DL ALBUMIN, URINE, RANDOM (test code = 02917) 15.6 MG/DL CALC ALBUMIN/CREAT, RND (monique t code = 15177) 164 MG/G MICROALBUMIN/CREATININE, RANDOM AND [id number] 00:00:00* Test Item Value Reference Range Interpretation Comme nts CREATININE, URINE, CONC. (te st code = 207) 95.3 MG/DL ALBUMIN, URINE, RANDOM (test code = 36492) 15.6 MG/DL CALC ALBUMIN/CREAT, RND (monique t code = 22725) 164 MG/G HEMOGLOBIN [id number] 00:00:00* Test Item Value Reference Range Interpretation Comme nts HEMOGLOBIN A1c (test code = 71217) 8.2 % HEMOGLOBIN [id number] 00:00:00* Test Item Value Reference Range Interpretation Comme nts HEMOGLOBIN A1c (test code = 78386) 8.2 % HEMOGLOBIN [id number] 00:00:00* Test Item Value Reference Range Interpretation Comme nts HEMOGLOBIN A1c (test code = 52213) 8.2 % MICROALBUMIN/CREATININE, RANDOM AND [id number] 00:00:00* Test Item Value Reference Range Interpretation Comme nts CREATININE, URINE, CONC. (te st code = 207) 95.3 MG/DL ALBUMIN, URINE, RANDOM (test code = 57548) 15.6 MG/DL CALC ALBUMIN/CREAT, RND (monique t code = 23671) 164 MG/G MICROALBUMIN/CREATININE, RANDOM AND [id number] 00:00:00* Test Item Value Reference Range Interpretation Comme nts CREATININE, URINE, CONC. (te st code = 2072) 95.3 MG/DL ALBUMIN, URINE, RANDOM (test code = 37531) 15.6 MG/DL CALC ALBUMIN/CREAT, RND (monique t code = 30820) 164 MG/G LIPID [id number] 00:00:00* Test Item Value Reference Range Interpretation Comme nts CHOLESTEROL (test code = 2210) 242 MG/DL TRIGLYCERIDES (test code = 2232) 721 MG/DL HDL CHOLESTEROL (test code = 2220) 41 MG/DL CALC LDL CHOL (test code = 2237) NOTE MG/DL RISK RATIO LDL/HDL (test cod e = 2238) (NOTE) RATIO HEMOGLOBIN [id number] 00:00:00* Test Item Value Reference Range Interpretation Comme nts HEMOGLOBIN A1c (test code = 08510) 7.0 % HEMOGLOBIN [id number] 00:00:00* Test Item Value Reference Range Interpretation Comme nts HEMOGLOBIN A1c (test code = 36132) 7.0 % COMPREHENSIVE METABOLIC [id number] 00:00:00* Test Item Value Reference Range Interpretation Comme nts GLUCOSE (test code = 2217) 188 MG/DL BUN (test code = 2208) 8 MG/DL CREATININE (test code = 2214) 0.47 MG/DL eGFR AMER. (test cod e = 57362) 139 ML/MIN/1.73 eGFR NON- AMER. (test code = 37776) 120 ML/MIN/1.73 CALC BUN/CREAT (test code = 2235) 17 RATIO SODIUM (test code = 2231) 137 MEQ/L POTASSIUM (test code = 2228) 4.6 MEQ/L CHLORIDE (test code = 2215) 101 MEQ/L CARBON DIOXIDE (test code = 2206) 24 MEQ/L CALCIUM (test code = 2209) 9.4 MG/DL PROTEIN, TOTAL (test code = 2229) 6.9 G/DL ALBUMIN (test code = 2201) 4.3 G/DL CALC GLOBULIN (test code = 2240) 2.6 G/DL CALC A/G RATIO (test code = 2234) 1.7 RATIO BILIRUBIN, TOTAL (test code = 2207) 0.2 MG/DL ALKALINE PHOSPHATASE (test code = 2204) 79 U/L AST (test code = 2218) 13 U/L ALT (test code = 2219) 11 U/L COMPREHENSIVE METABOLIC [id number] 00:00:00* Test Item Value Reference Range Interpretation Comme nts GLUCOSE (test code = 2217) 188 MG/DL BUN (test code = 2208) 8 MG/DL CREATININE (test code = 2214) 0.47 MG/DL eGFR AMER. (test cod e = 64358) 139 ML/MIN/1.73 eGFR NON- AMER. (test code = 72458) 120 ML/MIN/1.73 CALC BUN/CREAT (test code = 2235) 17 RATIO SODIUM (test code = 2231) 137 MEQ/L POTASSIUM (test code = 2228) 4.6 MEQ/L CHLORIDE (test code = 2215) 101 MEQ/L CARBON DIOXIDE (test code = 2206) 24 MEQ/L CALCIUM (test code = 2209) 9.4 MG/DL PROTEIN, TOTAL (test code = 2229) 6.9 G/DL ALBUMIN (test code = 2201) 4.3 G/DL CALC GLOBULIN (test code = 2240) 2.6 G/DL CALC A/G RATIO (test code = 2234) 1.7 RATIO BILIRUBIN, TOTAL (test code = 2207) 0.2 MG/DL ALKALINE PHOSPHATASE (test code = 2204) 79 U/L AST (test code = 2218) 13 U/L ALT (test code = 2219) 11 U/L LIPID [id number] 00:00:00* Test Item Value Reference Range Interpretation Comme nts CHOLESTEROL (test code = 2210) 242 MG/DL TRIGLYCERIDES (test code = 2232) 721 MG/DL HDL CHOLESTEROL (test code = 2220) 41 MG/DL CALC LDL CHOL (test code = 2237) NOTE MG/DL RISK RATIO LDL/HDL (test cod e = 2238) (NOTE) RATIO LIPID [id number] 00:00:00* Test Item Value Reference Range Interpretation Comme nts CHOLESTEROL (test code = 2210) 242 MG/DL TRIGLYCERIDES (test code = 2232) 721 MG/DL HDL CHOLESTEROL (test code = 2220) 41 MG/DL CALC LDL CHOL (test code = 2237) NOTE MG/DL RISK RATIO LDL/HDL (test cod e = 2238) (NOTE) RATIO HEMOGLOBIN [id number] 00:00:00* Test Item Value Reference Range Interpretation Comme nts HEMOGLOBIN A1c (test code = 21748) 7.0 % HEMOGLOBIN [id number] 00:00:00* Test Item Value Reference Range Interpretation Comme nts HEMOGLOBIN A1c (test code = 16182) 7.0 % HEMOGLOBIN [id number] 00:00:00* Test Item Value Reference Range Interpretation Comme nts HEMOGLOBIN A1c (test code = 56721) 7.0 % COMPREHENSIVE METABOLIC [id number] 00:00:00* Test Item Value Reference Range Interpretation Comme nts GLUCOSE (test code = 2217) 188 MG/DL BUN (test code = 2208) 8 MG/DL CREATININE (test code = 2214) 0.47 MG/DL eGFR AMER. (test cod e = 51952) 139 ML/MIN/1.73 eGFR NON- AMER. (test code = 78174) 120 ML/MIN/1.73 CALC BUN/CREAT (test code = 2235) 17 RATIO SODIUM (test code = 2231) 137 MEQ/L POTASSIUM (test code = 2228) 4.6 MEQ/L CHLORIDE (test code = 2215) 101 MEQ/L CARBON DIOXIDE (test code = 2206) 24 MEQ/L CALCIUM (test code = 2209) 9.4 MG/DL PROTEIN, TOTAL (test code = 2229) 6.9 G/DL ALBUMIN (test code = 2201) 4.3 G/DL CALC GLOBULIN (test code = 2240) 2.6 G/DL CALC A/G RATIO (test code = 2234) 1.7 RATIO BILIRUBIN, TOTAL (test code = 2207) 0.2 MG/DL ALKALINE PHOSPHATASE (test code = 2204) 79 U/L AST (test code = 2218) 13 U/L ALT (test code = 2219) 11 U/L COMPREHENSIVE METABOLIC [id number] 00:00:00* Test Item Value Reference Range Interpretation Comme nts GLUCOSE (test code = 2217) 188 MG/DL BUN (test code = 2208) 8 MG/DL CREATININE (test code = 2214) 0.47 MG/DL eGFR AMER. (test cod e = 61156) 139 ML/MIN/1.73 eGFR NON- AMER. (test code = 45516) 120 ML/MIN/1.73 CALC BUN/CREAT (test code = 2235) 17 RATIO SODIUM (test code = 2231) 137 MEQ/L POTASSIUM (test code = 2228) 4.6 MEQ/L CHLORIDE (test code = 2215) 101 MEQ/L CARBON DIOXIDE (test code = 2206) 24 MEQ/L CALCIUM (test code = 2209) 9.4 MG/DL PROTEIN, TOTAL (test code = 2229) 6.9 G/DL ALBUMIN (test code = 2201) 4.3 G/DL CALC GLOBULIN (test code = 2240) 2.6 G/DL CALC A/G RATIO (test code = 2234) 1.7 RATIO BILIRUBIN, TOTAL (test code = 2207) 0.2 MG/DL ALKALINE PHOSPHATASE (test code = 2204) 79 U/L AST (test code = 2218) 13 U/L ALT (test code = 2219) 11 U/L LIPID [id number] 00:00:00* Test Item Value Reference Range Interpretation Comme nts CHOLESTEROL (test code = 2210) 242 MG/DL TRIGLYCERIDES (test code = 2232) 721 MG/DL HDL CHOLESTEROL (test code = 2220) 41 MG/DL CALC LDL CHOL (test code = 2237) NOTE MG/DL RISK RATIO LDL/HDL (test cod e = 2238) (NOTE) RATIO LIPID [id number] 00:00:00* Test Item Value Reference Range Interpretation Comme nts CHOLESTEROL (test code = 2210) 242 MG/DL TRIGLYCERIDES (test code = 2232) 721 MG/DL HDL CHOLESTEROL (test code = 2220) 41 MG/DL CALC LDL CHOL (test code = 2237) NOTE MG/DL RISK RATIO LDL/HDL (test cod e = 2238) (NOTE) RATIO HEMOGLOBIN [id number] 00:00:00* Test Item Value Reference Range Interpretation Comme nts HEMOGLOBIN A1c (test code = 72055) 7.0 % HEMOGLOBIN [id number] 00:00:00* Test Item Value Reference Range Interpretation Comme nts HEMOGLOBIN A1c (test code = 45034) 7.0 % HEMOGLOBIN [id number] 00:00:00* Test Item Value Reference Range Interpretation Comme nts HEMOGLOBIN A1c (test code = 71068) 7.0 % COMPREHENSIVE METABOLIC [id number] 00:00:00* Test Item Value Reference Range Interpretation Comme nts GLUCOSE (test code = 2217) 188 MG/DL BUN (test code = 2208) 8 MG/DL CREATININE (test code = 2214) 0.47 MG/DL eGFR AMER. (test cod e = 55779) 139 ML/MIN/1.73 eGFR NON- AMER. (test code = 04116) 120 ML/MIN/1.73 CALC BUN/CREAT (test code = 2235) 17 RATIO SODIUM (test code = 2231) 137 MEQ/L POTASSIUM (test code = 2228) 4.6 MEQ/L CHLORIDE (test code = 2215) 101 MEQ/L CARBON DIOXIDE (test code = 2206) 24 MEQ/L CALCIUM (test code = 2209) 9.4 MG/DL PROTEIN, TOTAL (test code = 2229) 6.9 G/DL ALBUMIN (test code = 2201) 4.3 G/DL CALC GLOBULIN (test code = 2240) 2.6 G/DL CALC A/G RATIO (test code = 2234) 1.7 RATIO BILIRUBIN, TOTAL (test code = 2207) 0.2 MG/DL ALKALINE PHOSPHATASE (test code = 2204) 79 U/L AST (test code = 2218) 13 U/L ALT (test code = 2219) 11 U/L LIPID [id number] 00:00:00* Test Item Value Reference Range Interpretation Comme nts CHOLESTEROL (test code = 2210) 182 MG/DL TRIGLYCERIDES (test code = 2232) 489 MG/DL HDL CHOLESTEROL (test code = 2220) 43 MG/DL CALC LDL CHOL (test code = 2237) NOTE MG/DL RISK RATIO LDL/HDL (test cod e = 2238) (NOTE) RATIO HEMOGLOBIN [id number] 00:00:00* Test Item Value Reference Range Interpretation Comme nts HEMOGLOBIN A1c (test code = 70476) 6.1 % HEMOGLOBIN [id number] 00:00:00* Test Item Value Reference Range Interpretation Comme nts HEMOGLOBIN A1c (test code = 87466) 6.1 % COMPREHENSIVE METABOLIC [id number] 00:00:00* Test Item Value Reference Range Interpretation Comme nts GLUCOSE (test code = 2217) 169 MG/DL BUN (test code = 2208) 7 MG/DL CREATININE (test code = 2214) 0.51 MG/DL eGFR AMER. (test cod e = 68818) 136 ML/MIN/1.73 eGFR NON- AMER. (test code = 58470) 118 ML/MIN/1.73 CALC BUN/CREAT (test code = 2235) 14 RATIO SODIUM (test code = 2231) 139 MEQ/L POTASSIUM (test code = 2228) 4.2 MEQ/L CHLORIDE (test code = 2215) 99 MEQ/L CARBON DIOXIDE (test code = 2206) 27 MEQ/L CALCIUM (test code = 2209) 9.6 MG/DL PROTEIN, TOTAL (test code = 2229) 7.5 G/DL ALBUMIN (test code = 2201) 4.7 G/DL CALC GLOBULIN (test code = 2240) 2.8 G/DL CALC A/G RATIO (test code = 2234) 1.7 RATIO BILIRUBIN, TOTAL (test code = 2207) 0.3 MG/DL ALKALINE PHOSPHATASE (test code = 2204) 92 U/L AST (test code = 2218) 16 U/L ALT (test code = 2219) 10 U/L COMPREHENSIVE METABOLIC [id number] 00:00:00* Test Item Value Reference Range Interpretation Comme nts GLUCOSE (test code = 2217) 169 MG/DL BUN (test code = 2208) 7 MG/DL CREATININE (test code = 2214) 0.51 MG/DL eGFR AMER. (test cod e = 26317) 136 ML/MIN/1.73 eGFR NON- AMER. (test code = 81467) 118 ML/MIN/1.73 CALC BUN/CREAT (test code = 2235) 14 RATIO SODIUM (test code = 2231) 139 MEQ/L POTASSIUM (test code = 2228) 4.2 MEQ/L CHLORIDE (test code = 2215) 99 MEQ/L CARBON DIOXIDE (test code = 2206) 27 MEQ/L CALCIUM (test code = 2209) 9.6 MG/DL PROTEIN, TOTAL (test code = 2229) 7.5 G/DL ALBUMIN (test code = 2201) 4.7 G/DL CALC GLOBULIN (test code = 2240) 2.8 G/DL CALC A/G RATIO (test code = 2234) 1.7 RATIO BILIRUBIN, TOTAL (test code = 2207) 0.3 MG/DL ALKALINE PHOSPHATASE (test code = 2204) 92 U/L AST (test code = 2218) 16 U/L ALT (test code = 2219) 10 U/L LIPID [id number] 00:00:00* Test Item Value Reference Range Interpretation Comme nts CHOLESTEROL (test code = 2210) 182 MG/DL TRIGLYCERIDES (test code = 2232) 489 MG/DL HDL CHOLESTEROL (test code = 2220) 43 MG/DL CALC LDL CHOL (test code = 2237) NOTE MG/DL RISK RATIO LDL/HDL (test cod e = 2238) (NOTE) RATIO LIPID [id number] 00:00:00* Test Item Value Reference Range Interpretation Comme nts CHOLESTEROL (test code = 2210) 182 MG/DL TRIGLYCERIDES (test code = 2232) 489 MG/DL HDL CHOLESTEROL (test code = 2220) 43 MG/DL CALC LDL CHOL (test code = 2237) NOTE MG/DL RISK RATIO LDL/HDL (test cod e = 2238) (NOTE) RATIO HEMOGLOBIN [id number] 00:00:00* Test Item Value Reference Range Interpretation Comme nts HEMOGLOBIN A1c (test code = 56723) 6.1 % HEMOGLOBIN [id number] 00:00:00* Test Item Value Reference Range Interpretation Comme nts HEMOGLOBIN A1c (test code = 45276) 6.1 % HEMOGLOBIN [id number] 00:00:00* Test Item Value Reference Range Interpretation Comme nts HEMOGLOBIN A1c (test code = 16720) 6.1 % COMPREHENSIVE METABOLIC [id number] 00:00:00* Test Item Value Reference Range Interpretation Comme nts GLUCOSE (test code = 2217) 169 MG/DL BUN (test code = 2208) 7 MG/DL CREATININE (test code = 2214) 0.51 MG/DL eGFR AMER. (test cod e = 97829) 136 ML/MIN/1.73 eGFR NON- AMER. (test code = 21872) 118 ML/MIN/1.73 CALC BUN/CREAT (test code = 2235) 14 RATIO SODIUM (test code = 2231) 139 MEQ/L POTASSIUM (test code = 2228) 4.2 MEQ/L CHLORIDE (test code = 2215) 99 MEQ/L CARBON DIOXIDE (test code = 2206) 27 MEQ/L CALCIUM (test code = 2209) 9.6 MG/DL PROTEIN, TOTAL (test code = 2229) 7.5 G/DL ALBUMIN (test code = 2201) 4.7 G/DL CALC GLOBULIN (test code = 2240) 2.8 G/DL CALC A/G RATIO (test code = 2234) 1.7 RATIO BILIRUBIN, TOTAL (test code = 2207) 0.3 MG/DL ALKALINE PHOSPHATASE (test code = 2204) 92 U/L AST (test code = 2218) 16 U/L ALT (test code = 2219) 10 U/L COMPREHENSIVE METABOLIC [id number] 00:00:00* Test Item Value Reference Range Interpretation Comme nts GLUCOSE (test code = 2217) 169 MG/DL BUN (test code = 2208) 7 MG/DL CREATININE (test code = 2214) 0.51 MG/DL eGFR AMER. (test cod e = 11927) 136 ML/MIN/1.73 eGFR NON- AMER. (test code = 81676) 118 ML/MIN/1.73 CALC BUN/CREAT (test code = 2235) 14 RATIO SODIUM (test code = 2231) 139 MEQ/L POTASSIUM (test code = 2228) 4.2 MEQ/L CHLORIDE (test code = 2215) 99 MEQ/L CARBON DIOXIDE (test code = 2206) 27 MEQ/L CALCIUM (test code = 2209) 9.6 MG/DL PROTEIN, TOTAL (test code = 2229) 7.5 G/DL ALBUMIN (test code = 2201) 4.7 G/DL CALC GLOBULIN (test code = 2240) 2.8 G/DL CALC A/G RATIO (test code = 2234) 1.7 RATIO BILIRUBIN, TOTAL (test code = 2207) 0.3 MG/DL ALKALINE PHOSPHATASE (test code = 2204) 92 U/L AST (test code = 2218) 16 U/L ALT (test code = 2219) 10 U/L LIPID [id number] 00:00:00* Test Item Value Reference Range Interpretation Comme nts CHOLESTEROL (test code = 2210) 182 MG/DL TRIGLYCERIDES (test code = 2232) 489 MG/DL HDL CHOLESTEROL (test code = 2220) 43 MG/DL CALC LDL CHOL (test code = 2237) NOTE MG/DL RISK RATIO LDL/HDL (test cod e = 2238) (NOTE) RATIO LIPID [id number] 00:00:00* Test Item Value Reference Range Interpretation Comme nts CHOLESTEROL (test code = 2210) 182 MG/DL TRIGLYCERIDES (test code = 2232) 489 MG/DL HDL CHOLESTEROL (test code = 2220) 43 MG/DL CALC LDL CHOL (test code = 2237) NOTE MG/DL RISK RATIO LDL/HDL (test cod e = 2238) (NOTE) RATIO HEMOGLOBIN [id number] 00:00:00* Test Item Value Reference Range Interpretation Comme nts HEMOGLOBIN A1c (test code = 60587) 6.1 % HEMOGLOBIN [id number] 00:00:00* Test Item Value Reference Range Interpretation Comme nts HEMOGLOBIN A1c (test code = 59038) 6.1 % HEMOGLOBIN [id number] 00:00:00* Test Item Value Reference Range Interpretation Comme nts HEMOGLOBIN A1c (test code = 00791) 6.1 % COMPREHENSIVE METABOLIC [id number] 00:00:00* Test Item Value Reference Range Interpretation Comme nts GLUCOSE (test code = 2217) 169 MG/DL BUN (test code = 2208) 7 MG/DL CREATININE (test code = 2214) 0.51 MG/DL eGFR AMER. (test cod e = 99027) 136 ML/MIN/1.73 eGFR NON- AMER. (test code = 48173) 118 ML/MIN/1.73 CALC BUN/CREAT (test code = 2235) 14 RATIO SODIUM (test code = 2231) 139 MEQ/L POTASSIUM (test code = 2228) 4.2 MEQ/L CHLORIDE (test code = 2215) 99 MEQ/L CARBON DIOXIDE (test code = 2206) 27 MEQ/L CALCIUM (test code = 2209) 9.6 MG/DL PROTEIN, TOTAL (test code = 2229) 7.5 G/DL ALBUMIN (test code = 2201) 4.7 G/DL CALC GLOBULIN (test code = 2240) 2.8 G/DL CALC A/G RATIO (test code = 2234) 1.7 RATIO BILIRUBIN, TOTAL (test code = 2207) 0.3 MG/DL ALKALINE PHOSPHATASE (test code = 2204) 92 U/L AST (test code = 2218) 16 U/L ALT (test code = 2219) 10 U/L MICROALBUMIN/CREATININE, RANDOM AND [id number] 00:00:00* Test Item Value Reference Range Interpretation Comme nts CREATININE, URINE, CONC. (te st code = 2071) 86.9 MG/DL MICROALBUMIN, RANDOM (test c ode = 27733) 3.2 MG/DL CALC MICROALB/CREAT RND (monique t code = 63795) 37 MG/G MICROALBUMIN/CREATININE, RANDOM AND [id number] 00:00:00* Test Item Value Reference Range Interpretation Comme nts CREATININE, URINE, CONC. (te st code = 2071) 86.9 MG/DL MICROALBUMIN, RANDOM (test c ode = 87381) 3.2 MG/DL CALC MICROALB/CREAT RND (monique t code = 21951) 37 MG/G MICROALBUMIN/CREATININE, RANDOM AND [id number] 00:00:00* Test Item Value Reference Range Interpretation Comme nts CREATININE, URINE, CONC. (te st code = 2071) 86.9 MG/DL MICROALBUMIN, RANDOM (test c ode = 62594) 3.2 MG/DL CALC MICROALB/CREAT RND (monique t code = 70424) 37 MG/G MICROALBUMIN/CREATININE, RANDOM AND [id number] 00:00:00* Test Item Value Reference Range Interpretation Comme nts CREATININE, URINE, CONC. (te st code = 2071) 86.9 MG/DL MICROALBUMIN, RANDOM (test c ode = 72879) 3.2 MG/DL CALC MICROALB/CREAT RND (monique t code = 20913) 37 MG/G MICROALBUMIN/CREATININE, RANDOM AND [id number] 00:00:00* Test Item Value Reference Range Interpretation Comme nts CREATININE, URINE, CONC. (te st code = 2071) 86.9 MG/DL MICROALBUMIN, RANDOM (test c ode = 00005) 3.2 MG/DL CALC MICROALB/CREAT RND (monique t code = 91849) 37 MG/G MICROALBUMIN/CREATININE, RANDOM AND [id number] 00:00:00* Test Item Value Reference Range Interpretation Comme nts CREATININE, URINE, CONC. (test code = 2071) TEST NOT PERFORMED MG/DL MICROALBUMIN, RANDOM (test code = 15232) TEST NOT PERFORMED MG/DL CALC MICROALB/CREAT RND (test code = 67007) TEST NOT PERFORMED MG/G MICROALBUMIN/CREATININE, RANDOM AND [id number] 00:00:00* Test Item Value Reference Range Interpretation Comme nts CREATININE, URINE, CONC. (test code = 2071) TEST NOT PERFORMED MG/DL MICROALBUMIN, RANDOM (test code = 88572) TEST NOT PERFORMED MG/DL CALC MICROALB/CREAT RND (test code = 62966) TEST NOT PERFORMED MG/G MICROALBUMIN/CREATININE, RANDOM AND [id number] 00:00:00* Test Item Value Reference Range Interpretation Comme nts CREATININE, URINE, CONC. (test code = 2071) TEST NOT PERFORMED MG/DL MICROALBUMIN, RANDOM (test code = 19734) TEST NOT PERFORMED MG/DL CALC MICROALB/CREAT RND (test code = 02359) TEST NOT PERFORMED MG/G MICROALBUMIN/CREATININE, RANDOM AND [id number] 00:00:00* Test Item Value Reference Range Interpretation Comme nts CREATININE, URINE, CONC. (test code = 2071) TEST NOT PERFORMED MG/DL MICROALBUMIN, RANDOM (test code = 84083) TEST NOT PERFORMED MG/DL CALC MICROALB/CREAT RND (test code = 81295) TEST NOT PERFORMED MG/G MICROALBUMIN/CREATININE, RANDOM AND [id number] 00:00:00* Test Item Value Reference Range Interpretation Comme nts CREATININE, URINE, CONC. (test code = 2071) TEST NOT PERFORMED MG/DL MICROALBUMIN, RANDOM (test code = 18486) TEST NOT PERFORMED MG/DL CALC MICROALB/CREAT RND (test code = 35017) TEST NOT PERFORMED MG/G HEMOGLOBIN [id number] 00:00:00* Test Item Value Reference Range Interpretation Comme nts HEMOGLOBIN A1c (test code = 43402) 9.0 % HEMOGLOBIN [id number] 00:00:00* Test Item Value Reference Range Interpretation Comme nts HEMOGLOBIN A1c (test code = 62765) 9.0 % [id number] 00:00:00* Test Item Value Reference Range Interpretation Comme nts TSH (test code = 2821) 0.853 UIU/ML [id number] 00:00:00* Test Item Value Reference Range Interpretation Comme nts TSH (test code = 2821) 0.853 UIU/ML COMPREHENSIVE METABOLIC [id number] 00:00:00* Test Item Value Reference Range Interpretation Comme nts GLUCOSE (test code = 2217) 298 MG/DL BUN (test code = 2208) 8 MG/DL CREATININE (test code = 2214) 0.39 MG/DL eGFR AMER. (test cod e = 60320) 149 ML/MIN/1.73 eGFR NON- AMER. (test code = 14035) 129 ML/MIN/1.73 CALC BUN/CREAT (test code = 2235) 21 RATIO SODIUM (test code = 2231) 136 MEQ/L POTASSIUM (test code = 2228) 4.3 MEQ/L CHLORIDE (test code = 2215) 98 MEQ/L CARBON DIOXIDE (test code = 2206) 21 MEQ/L CALCIUM (test code = 2209) 9.1 MG/DL PROTEIN, TOTAL (test code = 2229) 6.7 G/DL ALBUMIN (test code = 2201) 4.3 G/DL CALC GLOBULIN (test code = 2240) 2.4 G/DL CALC A/G RATIO (test code = 2234) 1.8 RATIO BILIRUBIN, TOTAL (test code = 2207) 0.1 MG/DL ALKALINE PHOSPHATASE (test code = 2204) 81 U/L AST (test code = 2218) 13 U/L ALT (test code = 2219) 8 U/L LIPID [id number] 00:00:00* Test Item Value Reference Range Interpretation Comme nts CHOLESTEROL (test code = 2210) 233 MG/DL TRIGLYCERIDES (test code = 2232) 775 MG/DL HDL CHOLESTEROL (test code = 2220) 39 MG/DL CALC LDL CHOL (test code = 2237) NOTE MG/DL RISK RATIO LDL/HDL (test cod e = 2238) (NOTE) RATIO CBC W/AUTO [id number] 00:00:00* Test Item Value Reference Range Interpretation Comme nts WBC (test code = 1001) 8.9 K/UL [...] code = 1015) 317 K/UL CBC W/AUTO [id number] 00:00:00* Test Item Value Reference Range Interpretation Comme nts WBC (test code = 1001) 8.9 K/UL [...] code = 1015) 317 K/UL CBC W/AUTO [id number] 00:00:00* Test Item Value Reference Range Interpretation Comme nts WBC (test code = 1001) 8.9 K/UL [...] (test code = 1015) 317 K/UL HEMOGLOBIN [id number] 00:00:00* Test Item Value Reference Range Interpretation Comme nts HEMOGLOBIN A1c (test code = 70000) 9.0 % HEMOGLOBIN [id number] 00:00:00* Test Item Value Reference Range Interpretation Comme nts HEMOGLOBIN A1c (test code = 28821) 9.0 % HEMOGLOBIN [id number] 00:00:00* Test Item Value Reference Range Interpretation Comme nts HEMOGLOBIN A1c (test code = 16390) 9.0 % [id number] 00:00:00* Test Item Value Reference Range Interpretation Comme nts TSH (test code = 2821) 0.853 UIU/ML [id number] 00:00:00* Test Item Value Reference Range Interpretation Comme nts TSH (test code = 2821) 0.853 UIU/ML [id number] 00:00:00* Test Item Value Reference Range Interpretation Comme nts TSH (test code = 2821) 0.853 UIU/ML COMPREHENSIVE METABOLIC [id number] 00:00:00* Test Item Value Reference Range Interpretation Comme nts GLUCOSE (test code = 2217) 298 MG/DL BUN (test code = 2208) 8 MG/DL CREATININE (test code = 2214) 0.39 MG/DL eGFR AMER. (test cod e = 97040) 149 ML/MIN/1.73 eGFR NON- AMER. (test code = 42020) 129 ML/MIN/1.73 CALC BUN/CREAT (test code = 2235) 21 RATIO SODIUM (test code = 2231) 136 MEQ/L POTASSIUM (test code = 2228) 4.3 MEQ/L CHLORIDE (test code = 2215) 98 MEQ/L CARBON DIOXIDE (test code = 2206) 21 MEQ/L CALCIUM (test code = 2209) 9.1 MG/DL PROTEIN, TOTAL (test code = 2229) 6.7 G/DL ALBUMIN (test code = 2201) 4.3 G/DL CALC GLOBULIN (test code = 2240) 2.4 G/DL CALC A/G RATIO (test code = 2234) 1.8 RATIO BILIRUBIN, TOTAL (test code = 2207) 0.1 MG/DL ALKALINE PHOSPHATASE (test code = 2204) 81 U/L AST (test code = 2218) 13 U/L ALT (test code = 2219) 8 U/L COMPREHENSIVE METABOLIC [id number] 00:00:00* Test Item Value Reference Range Interpretation Comme nts GLUCOSE (test code = 2217) 298 MG/DL BUN (test code = 2208) 8 MG/DL CREATININE (test code = 2214) 0.39 MG/DL eGFR AMER. (test cod e = 57460) 149 ML/MIN/1.73 eGFR NON- AMER. (test code = 31089) 129 ML/MIN/1.73 CALC BUN/CREAT (test code = 2235) 21 RATIO SODIUM (test code = 2231) 136 MEQ/L POTASSIUM (test code = 2228) 4.3 MEQ/L CHLORIDE (test code = 2215) 98 MEQ/L CARBON DIOXIDE (test code = 2206) 21 MEQ/L CALCIUM (test code = 2209) 9.1 MG/DL PROTEIN, TOTAL (test code = 2229) 6.7 G/DL ALBUMIN (test code = 2201) 4.3 G/DL CALC GLOBULIN (test code = 2240) 2.4 G/DL CALC A/G RATIO (test code = 2234) 1.8 RATIO BILIRUBIN, TOTAL (test code = 2207) 0.1 MG/DL ALKALINE PHOSPHATASE (test code = 2204) 81 U/L AST (test code = 2218) 13 U/L ALT (test code = 2219) 8 U/L LIPID [id number] 00:00:00* Test Item Value Reference Range Interpretation Comme nts CHOLESTEROL (test code = 2210) 233 MG/DL TRIGLYCERIDES (test code = 2232) 775 MG/DL HDL CHOLESTEROL (test code = 2220) 39 MG/DL CALC LDL CHOL (test code = 2237) NOTE MG/DL RISK RATIO LDL/HDL (test cod e = 2238) (NOTE) RATIO LIPID [id number] 00:00:00* Test Item Value Reference Range Interpretation Comme nts CHOLESTEROL (test code = 2210) 233 MG/DL TRIGLYCERIDES (test code = 2232) 775 MG/DL HDL CHOLESTEROL (test code = 2220) 39 MG/DL CALC LDL CHOL (test code = 2237) NOTE MG/DL RISK RATIO LDL/HDL (test cod e = 2238) (NOTE) RATIO CBC W/AUTO [id number] 00:00:00* Test Item Value Reference Range Interpretation Comme nts WBC (test code = 1001) 8.9 K/UL [...] code = 1015) 317 K/UL CBC W/AUTO [id number] 00:00:00* Test Item Value Reference Range Interpretation Comme nts WBC (test code = 1001) 8.9 K/UL [...] code = 1015) 317 K/UL CBC W/AUTO [id number] 00:00:00* Test Item Value Reference Range Interpretation Comme nts WBC (test code = 1001) 8.9 K/UL [...] (test code = 1015) 317 K/UL HEMOGLOBIN [id number] 00:00:00* Test Item Value Reference Range Interpretation Comme nts HEMOGLOBIN A1c (test code = 65842) 9.0 % HEMOGLOBIN [id number] 00:00:00* Test Item Value Reference Range Interpretation Comme nts HEMOGLOBIN A1c (test code = 83469) 9.0 % HEMOGLOBIN [id number] 00:00:00* Test Item Value Reference Range Interpretation Comme nts HEMOGLOBIN A1c (test code = 26086) 9.0 % [id number] 00:00:00* Test Item Value Reference Range Interpretation Comme nts TSH (test code = 2821) 0.853 UIU/ML [id number] 00:00:00* Test Item Value Reference Range Interpretation Comme nts TSH (test code = 2821) 0.853 UIU/ML [id number] 00:00:00* Test Item Value Reference Range Interpretation Comme nts TSH (test code = 2821) 0.853 UIU/ML COMPREHENSIVE METABOLIC [id number] 00:00:00* Test Item Value Reference Range Interpretation Comme nts GLUCOSE (test code = 2217) 298 MG/DL BUN (test code = 2208) 8 MG/DL CREATININE (test code = 2214) 0.39 MG/DL eGFR AMER. (test cod e = 01075) 149 ML/MIN/1.73 eGFR NON- AMER. (test code = 17509) 129 ML/MIN/1.73 CALC BUN/CREAT (test code = 2235) 21 RATIO SODIUM (test code = 2231) 136 MEQ/L POTASSIUM (test code = 2228) 4.3 MEQ/L CHLORIDE (test code = 2215) 98 MEQ/L CARBON DIOXIDE (test code = 2206) 21 MEQ/L CALCIUM (test code = 2209) 9.1 MG/DL PROTEIN, TOTAL (test code = 2229) 6.7 G/DL ALBUMIN (test code = 2201) 4.3 G/DL CALC GLOBULIN (test code = 2240) 2.4 G/DL CALC A/G RATIO (test code = 2234) 1.8 RATIO BILIRUBIN, TOTAL (test code = 2207) 0.1 MG/DL ALKALINE PHOSPHATASE (test code = 2204) 81 U/L AST (test code = 2218) 13 U/L ALT (test code = 2219) 8 U/L COMPREHENSIVE METABOLIC [id number] 00:00:00* Test Item Value Reference Range Interpretation Comme nts GLUCOSE (test code = 2217) 298 MG/DL BUN (test code = 2208) 8 MG/DL CREATININE (test code = 2214) 0.39 MG/DL eGFR AMER. (test cod e = 00115) 149 ML/MIN/1.73 eGFR NON- AMER. (test code = 64649) 129 ML/MIN/1.73 CALC BUN/CREAT (test code = 2235) 21 RATIO SODIUM (test code = 2231) 136 MEQ/L POTASSIUM (test code = 2228) 4.3 MEQ/L CHLORIDE (test code = 2215) 98 MEQ/L CARBON DIOXIDE (test code = 2206) 21 MEQ/L CALCIUM (test code = 2209) 9.1 MG/DL PROTEIN, TOTAL (test code = 2229) 6.7 G/DL ALBUMIN (test code = 2201) 4.3 G/DL CALC GLOBULIN (test code = 2240) 2.4 G/DL CALC A/G RATIO (test code = 2234) 1.8 RATIO BILIRUBIN, TOTAL (test code = 2207) 0.1 MG/DL ALKALINE PHOSPHATASE (test code = 2204) 81 U/L AST (test code = 2218) 13 U/L ALT (test code = 2219) 8 U/L LIPID [id number] 00:00:00* Test Item Value Reference Range Interpretation Comme nts CHOLESTEROL (test code = 2210) 233 MG/DL TRIGLYCERIDES (test code = 2232) 775 MG/DL HDL CHOLESTEROL (test code = 2220) 39 MG/DL CALC LDL CHOL (test code = 2237) NOTE MG/DL RISK RATIO LDL/HDL (test cod e = 2238) (NOTE) RATIO LIPID [id number] 00:00:00* Test Item Value Reference Range Interpretation Comme nts CHOLESTEROL (test code = 2210) 233 MG/DL TRIGLYCERIDES (test code = 2232) 775 MG/DL HDL CHOLESTEROL (test code = 2220) 39 MG/DL CALC LDL CHOL (test code = 2237) NOTE MG/DL RISK RATIO LDL/HDL (test cod e = 2238) (NOTE) RATIO CBC W/AUTO [id number] 00:00:00* Test Item Value Reference Range Interpretation Comme nts WBC (test code = 1001) 8.9 K/UL [...] code = 1015) 317 K/UL CBC W/AUTO [id number] 00:00:00* Test Item Value Reference Range Interpretation Comme nts WBC (test code = 1001) 8.9 K/UL [...] code = 1015) 317 K/UL CBC W/AUTO [id number] 00:00:00* Test Item Value Reference Range Interpretation Comme nts WBC (test code = 1001) 7.4 K/UL [...] (test code = 1016) (NOTE) CBC W/AUTO [id number] 00:00:00* Test Item Value Reference Range Interpretation Comme nts WBC (test code = 1001) 7.4 K/UL [...] COMMENTS (test code = 1016) (NOTE) HEMOGLOBIN [id number] 00:00:00* Test Item Value Reference Range Interpretation Comme nts HEMOGLOBIN A1c (test code = 49964) 8.3 % HEMOGLOBIN [id number] 00:00:00* Test Item Value Reference Range Interpretation Comme nts HEMOGLOBIN A1c (test code = 52605) 8.3 % [id number] 00:00:00* Test Item Value Reference Range Interpretation Comme nts TSH (test code = 2821) 1.1 UIU/ML [id number] 00:00:00* Test Item Value Reference Range Interpretation Comme nts TSH (test code = 2821) 1.1 UIU/ML COMPREHENSIVE METABOLIC [id number] 00:00:00* Test Item Value Reference Range Interpretation Comme nts GLUCOSE (test code = 2217) 196 MG/DL BUN (test code = 2208) 8 MG/DL CREATININE (test code = 2214) 0.48 MG/DL eGFR AMER. (test cod e = 59687) 141 ML/MIN/1.73 eGFR NON- AMER. (test code = 53367) 122 ML/MIN/1.73 CALCULATED BUN/CREAT (test code = 2235) 17 RATIO SODIUM (test code = 2231) 133 MEQ/L POTASSIUM (test code = 2228) 4.0 MEQ/L CHLORIDE (test code = 2215) 99 MEQ/L CARBON DIOXIDE (test code = 2206) 22 MEQ/L CALCIUM (test code = 2209) 9.2 MG/DL PROTEIN, TOTAL (test code = 2229) 7.1 G/DL ALBUMIN (test code = 2201) 4.3 G/DL CALCULATED GLOBULIN (test code = 2240) 2.8 G/DL CALCULATED A/G RATIO (test code = 2234) 1.5 RATIO BILIRUBIN, TOTAL (test code = 2207) 0.4 MG/DL ALKALINE PHOSPHATASE (test code = 2204) 67 U/L SGOT (AST) (test code = 2218) 13 U/L SGPT (ALT) (test code = 2219) 7 U/L LIPID [id number] 00:00:00* Test Item Value Reference Range Interpretation Comme nts CHOLESTEROL (test code = 2210) 289 MG/DL TRIGLYCERIDES (test code = 2232) 1092 MG/DL HDL CHOLESTEROL (test code = 2220) 41 MG/DL CALCULATED LDL CHOL (test co de = 2237) NOTE MG/DL CBC W/AUTO [id number] 00:00:00* Test Item Value Reference Range Interpretation Comme nts WBC (test code = 1001) 7.4 K/UL [...] (test code = 1016) (NOTE) CBC W/AUTO [id number] 00:00:00* Test Item Value Reference Range Interpretation Comme nts WBC (test code = 1001) 7.4 K/UL [...] (test code = 1016) (NOTE) CBC W/AUTO [id number] 00:00:00* Test Item Value Reference Range Interpretation Comme nts WBC (test code = 1001) 7.4 K/UL [...] COMMENTS (test code = 1016) (NOTE) HEMOGLOBIN [id number] 00:00:00* Test Item Value Reference Range Interpretation Comme nts HEMOGLOBIN A1c (test code = 64674) 8.3 % HEMOGLOBIN [id number] 00:00:00* Test Item Value Reference Range Interpretation Comme nts HEMOGLOBIN A1c (test code = 01112) 8.3 % HEMOGLOBIN [id number] 00:00:00* Test Item Value Reference Range Interpretation Comme nts HEMOGLOBIN A1c (test code = 22538) 8.3 % [id number] 00:00:00* Test Item Value Reference Range Interpretation Comme nts TSH (test code = 2821) 1.1 UIU/ML [id number] 00:00:00* Test Item Value Reference Range Interpretation Comme nts TSH (test code = 2821) 1.1 UIU/ML [id number] 00:00:00* Test Item Value Reference Range Interpretation Comme nts TSH (test code = 2821) 1.1 UIU/ML COMPREHENSIVE METABOLIC [id number] 00:00:00* Test Item Value Reference Range Interpretation Comme nts GLUCOSE (test code = 2217) 196 MG/DL BUN (test code = 2208) 8 MG/DL CREATININE (test code = 2214) 0.48 MG/DL eGFR AMER. (test cod e = 97607) 141 ML/MIN/1.73 eGFR NON- AMER. (test code = 99714) 122 ML/MIN/1.73 CALCULATED BUN/CREAT (test code = 2235) 17 RATIO SODIUM (test code = 2231) 133 MEQ/L POTASSIUM (test code = 2228) 4.0 MEQ/L CHLORIDE (test code = 2215) 99 MEQ/L CARBON DIOXIDE (test code = 2206) 22 MEQ/L CALCIUM (test code = 2209) 9.2 MG/DL PROTEIN, TOTAL (test code = 2229) 7.1 G/DL ALBUMIN (test code = 2201) 4.3 G/DL CALCULATED GLOBULIN (test code = 2240) 2.8 G/DL CALCULATED A/G RATIO (test code = 2234) 1.5 RATIO BILIRUBIN, TOTAL (test code = 2207) 0.4 MG/DL ALKALINE PHOSPHATASE (test code = 2204) 67 U/L SGOT (AST) (test code = 2218) 13 U/L SGPT (ALT) (test code = 2219) 7 U/L COMPREHENSIVE METABOLIC [id number] 00:00:00* Test Item Value Reference Range Interpretation Comme nts GLUCOSE (test code = 2217) 196 MG/DL BUN (test code = 2208) 8 MG/DL CREATININE (test code = 2214) 0.48 MG/DL eGFR AMER. (test cod e = 62298) 141 ML/MIN/1.73 eGFR NON- AMER. (test code = 29805) 122 ML/MIN/1.73 CALCULATED BUN/CREAT (test code = 2235) 17 RATIO SODIUM (test code = 2231) 133 MEQ/L POTASSIUM (test code = 2228) 4.0 MEQ/L CHLORIDE (test code = 2215) 99 MEQ/L CARBON DIOXIDE (test code = 2206) 22 MEQ/L CALCIUM (test code = 2209) 9.2 MG/DL PROTEIN, TOTAL (test code = 2229) 7.1 G/DL ALBUMIN (test code = 2201) 4.3 G/DL CALCULATED GLOBULIN (test code = 2240) 2.8 G/DL CALCULATED A/G RATIO (test code = 2234) 1.5 RATIO BILIRUBIN, TOTAL (test code = 2207) 0.4 MG/DL ALKALINE PHOSPHATASE (test code = 2204) 67 U/L SGOT (AST) (test code = 2218) 13 U/L SGPT (ALT) (test code = 2219) 7 U/L LIPID [id number] 00:00:00* Test Item Value Reference Range Interpretation Comme nts CHOLESTEROL (test code = 2210) 289 MG/DL TRIGLYCERIDES (test code = 2232) 1092 MG/DL HDL CHOLESTEROL (test code = 2220) 41 MG/DL CALCULATED LDL CHOL (test co de = 2237) NOTE MG/DL LIPID [id number] 00:00:00* Test Item Value Reference Range Interpretation Comme nts CHOLESTEROL (test code = 2210) 289 MG/DL TRIGLYCERIDES (test code = 2232) 1092 MG/DL HDL CHOLESTEROL (test code = 2220) 41 MG/DL CALCULATED LDL CHOL (test co de = 2237) NOTE MG/DL CBC W/AUTO [id number] 00:00:00* Test Item Value Reference Range Interpretation Comme nts WBC (test code = 1001) 7.4 K/UL [...] (test code = 1016) (NOTE) CBC W/AUTO [id number] 00:00:00* Test Item Value Reference Range Interpretation Comme nts WBC (test code = 1001) 7.4 K/UL [...] (test code = 1016) (NOTE) CBC W/AUTO [id number] 00:00:00* Test Item Value Reference Range Interpretation Comme nts WBC (test code = 1001) 7.4 K/UL [...] COMMENTS (test code = 1016) (NOTE) HEMOGLOBIN [id number] 00:00:00* Test Item Value Reference Range Interpretation Comme nts HEMOGLOBIN A1c (test code = 60918) 8.3 % HEMOGLOBIN [id number] 00:00:00* Test Item Value Reference Range Interpretation Comme nts HEMOGLOBIN A1c (test code = 46508) 8.3 % HEMOGLOBIN [id number] 00:00:00* Test Item Value Reference Range Interpretation Comme nts HEMOGLOBIN A1c (test code = 15279) 8.3 % [id number] 00:00:00* Test Item Value Reference Range Interpretation Comme nts TSH (test code = 2821) 1.1 UIU/ML [id number] 00:00:00* Test Item Value Reference Range Interpretation Comme nts TSH (test code = 2821) 1.1 UIU/ML [id number] 00:00:00* Test Item Value Reference Range Interpretation Comme nts TSH (test code = 2821) 1.1 UIU/ML COMPREHENSIVE METABOLIC [id number] 00:00:00* Test Item Value Reference Range Interpretation Comme nts GLUCOSE (test code = 2217) 196 MG/DL BUN (test code = 2208) 8 MG/DL CREATININE (test code = 2214) 0.48 MG/DL eGFR AMER. (test cod e = 21568) 141 ML/MIN/1.73 eGFR NON- AMER. (test code = 05628) 122 ML/MIN/1.73 CALCULATED BUN/CREAT (test code = 2235) 17 RATIO SODIUM (test code = 2231) 133 MEQ/L POTASSIUM (test code = 2228) 4.0 MEQ/L CHLORIDE (test code = 2215) 99 MEQ/L CARBON DIOXIDE (test code = 2206) 22 MEQ/L CALCIUM (test code = 2209) 9.2 MG/DL PROTEIN, TOTAL (test code = 2229) 7.1 G/DL ALBUMIN (test code = 2201) 4.3 G/DL CALCULATED GLOBULIN (test code = 2240) 2.8 G/DL CALCULATED A/G RATIO (test code = 2234) 1.5 RATIO BILIRUBIN, TOTAL (test code = 2207) 0.4 MG/DL ALKALINE PHOSPHATASE (test code = 2204) 67 U/L SGOT (AST) (test code = 2218) 13 U/L SGPT (ALT) (test code = 2219) 7 U/L COMPREHENSIVE METABOLIC [id number] 00:00:00* Test Item Value Reference Range Interpretation Comme nts GLUCOSE (test code = 2217) 196 MG/DL BUN (test code = 2208) 8 MG/DL CREATININE (test code = 2214) 0.48 MG/DL eGFR AMER. (test cod e = 74773) 141 ML/MIN/1.73 eGFR NON- AMER. (test code = 19046) 122 ML/MIN/1.73 CALCULATED BUN/CREAT (test code = 2235) 17 RATIO SODIUM (test code = 2231) 133 MEQ/L POTASSIUM (test code = 2228) 4.0 MEQ/L CHLORIDE (test code = 2215) 99 MEQ/L CARBON DIOXIDE (test code = 2206) 22 MEQ/L CALCIUM (test code = 2209) 9.2 MG/DL PROTEIN, TOTAL (test code = 2229) 7.1 G/DL ALBUMIN (test code = 2201) 4.3 G/DL CALCULATED GLOBULIN (test code = 2240) 2.8 G/DL CALCULATED A/G RATIO (test code = 2234) 1.5 RATIO BILIRUBIN, TOTAL (test code = 2207) 0.4 MG/DL ALKALINE PHOSPHATASE (test code = 2204) 67 U/L SGOT (AST) (test code = 2218) 13 U/L SGPT (ALT) (test code = 2219) 7 U/L LIPID [id number] 00:00:00* Test Item Value Reference Range Interpretation Comme nts CHOLESTEROL (test code = 2210) 289 MG/DL TRIGLYCERIDES (test code = 2232) 1092 MG/DL HDL CHOLESTEROL (test code = 2220) 41 MG/DL CALCULATED LDL CHOL (test co de = 2237) NOTE MG/DL LIPID [id number] 00:00:00* Test Item Value Reference Range Interpretation Comme nts CHOLESTEROL (test code = 2210) 289 MG/DL TRIGLYCERIDES (test code = 2232) 1092 MG/DL HDL CHOLESTEROL (test code = 2220) 41 MG/DL CALCULATED LDL CHOL (test co de = 2237) NOTE MG/DL
[2023-02-21 11:43] LABS: Absolute Lymphocytes (CBC) 0.8 K/uL (0.7-4.9); Hematocrit 49.1 % (36.0-45.0); Lymphocytes % 7.5 % (15.3-44.8); MCV 90.9 fL (80-100); MPV 7.7 fL (7.6-11.3); Platelets 284 thou/uL (152-406)
[2023-02-21 11:56] LABS: Potassium 3.8 mEq/L (3.5-5.1); Troponin High Sensitivity 3.7 pg/mL (<58.9)
[2023-02-21 12:24] LABS: Blood Morphology Comment NOT SEEN (NOT SEEN); Platelet Estimate ADEQ
--- NOTE | 2023-02-21 12:46 | RAD REPORT ---
EXAM DESCRIPTION: [facility] Single View02/21/2023 12:00 pm CLINICAL HISTORY: sob COMPARISON: September 2022 FINDINGS: The lungs appear clear of acute infiltrate. The heart is normal size IMPRESSION: No acute abnormalities displayed
[2023-02-21 13:26] LABS: SARS-CoV-2 Antigen Rapid Res Negative (Negative)
--- NOTE | 2023-02-21 13:35 | EDPHYS ---
Physician Documentation [facility] Name: Effie Crouch Age: 47 yrs Sex: Female : 1975 Arrival Date: 02/21/2023 Time: 10:55 Bed 5 Private MD: ED Physician Avelino Flores HPI: 02/21 11:05 This 47 yrs old Female presents to ER via Ambulatory with complaints of jh7 Shortness Of Breath, Pain All Over, Flu Symptoms, Anxiety. 11:05 47-year-old female presents to the ER complaining of shortness of breath, chest jh7 tightness, body aches, headache, and subjective fever since yesterday. She also reports that her throat is sore. History of diabetes. NKDA.. Historical: - Allergies: 11:05 No Known Drug Allergies; hb - Home Meds: 11:05 metformin 1 Oral tab 1 tab 2 times per day [Active]; lisinopril 10 mg Oral tab 1 tab hb once daily [Active]; buspirone 10 mg Oral tablet daily [Active]; - PMHx: 11:05 Anemia; blood transfusion; Diabetes - NIDDM; Hypertension; hb - PSHx: 11:05 Cholecystectomy; ; hysterectomy; hb - Immunization history:: Adult Immunizations up to date. - Social history:: Smoking status: Patient denies any tobacco usage or history of. ROS: 11:05 Eyes: Negative for injury, pain, redness, and discharge, Neck: Negative for injury, jh7 pain, and swelling, Cardiovascular: Negative for chest pain, palpitations, and edema, Back: Negative for injury and pain, MS/Extremity: Negative for injury and deformity, Skin: Negative for injury, rash, and discoloration, Neuro: Negative for headache, weakness, numbness, tingling, and seizure, 11:05 Constitutional: Positive for body aches, chills, fever, malaise, 11:05 ENT: Positive for sore throat, 11:05 Respiratory: Positive for shortness of breath, 11:05 All other systems are negative, Exam: 11:05 Constitutional: This is a well developed, well nourished patient who is awake, alert, jh7 and in no acute distress. Head/Face: Normocephalic, atraumatic. Eyes: Pupils equal round and reactive to light, extra-ocular motions intact. Lids and lashes normal. Conjunctiva and sclera are non-icteric and not injected. Cornea within normal limits. Periorbital areas with no swelling, redness, or edema. Neck: Trachea midline, no thyromegaly or masses palpated, and no cervical lymphadenopathy. Supple, full range of motion without nuchal rigidity, or vertebral point tenderness. No Meningismus. Cardiovascular: Regular rate and rhythm with a normal S1 and S2. No gallops, murmurs, or rubs. Normal PMI, no JVD. No pulse deficits. Respiratory: Lungs have equal breath sounds bilaterally, clear to auscultation and percussion. No rales, rhonchi or wheezes noted. No increased work of breathing, no retractions or nasal flaring. Abdomen/GI: Soft, non-tender, with normal bowel sounds. No distension or tympany. No guarding or rebound. No evidence of tenderness throughout. Skin: Warm, dry with normal turgor. Normal color with no rashes, no lesions, and no evidence of cellulitis. MS/ Extremity: Pulses equal, no cyanosis. Neurovascular intact. Full, normal range of motion. Neuro: Awake and alert, GCS 15, oriented to person, place, time, and situation. Motor strength 5/5 in all extremities. Sensory grossly intact. Normal gait. 11:05 ENT: Posterior pharynx: pooling of secretions, that are mild, Vital Signs: 11:03 BP 138 / 84; Pulse 134; Resp 20; Temp 97.2; Pulse Ox 100% ; Weight 62.14 kg; Height 5 hb ft. 2 in. ; 11:37 Pulse 119; Resp 16; Pulse Ox 99% on R/A; iw 13:08 BP 110 / 70; Pulse 113; Resp 22; Pulse Ox 97% on R/A; ld1 11:03 Body Mass Index 25.06 (62.14 kg, 157.48 cm) hb MDM: 10:58 Patient medically screened. 7 13:35 Differential diagnosis: Anxiety Reaction Bronchitis pneumonia, influenza, covid. Data [facility] interpreted: Pulse oximetry: is 97 %. Interpretation: normal. The patient's pulmonary embolism risk score was calculated as follows: the patients heart rate is greater than 100 beats per minute (1.5 Pts) Total Score: 0-2 points. This patient was found to be at low risk for a pulmonary embolism by using the Well's assessment criteria. Data reviewed: vital signs, nurses notes, lab test result(s), EKG, radiologic studies, plain films. I considered the following discharge prescriptions or medication management in the emergency department Medications were administered in the Emergency Department. See MAR. Independent interpretation of the following test(s) in the Emergency Department EKG: See my EKG interpretation above. Care significantly affected by the following chronic conditions: Diabetes, Hypertension, Anxiety. Counseling: I had a detailed discussion with the patient and/or guardian regarding the historical points, exam findings, and any diagnostic results supporting the discharge/admit diagnosis, to return to the emergency department if symptoms worsen or persist or if there are any questions or concerns that arise at home. Response to treatment: the patient's symptoms have mildly improved after treatment. ED course: Patient reports a history of anxiety and stated that she had not taken her anxiety medicine today. Declined finishing her IV fluids and states that she was hungry and would like to go get something to eat. The patient was discharged.. 02/21 11:12 Order name: Basic Metabolic Panel; Complete Time: 12:04 [facility] 02/21 11:12 Order name: CBC with Diff; Complete Time: 12: [facility] 02/21 11:12 Order name: Troponin HS; Complete Time: 12:04 [facility] 02/21 11:48 Order name: Manual Differential; Complete Time: 12:26 [facility] 02/21 12:43 Order name: SARS RAPID; Complete Time: 13:32 [facility] 02/21 12:43 Order name: Flu; Complete Time: 13:32 [facility] 02/21 11:12 Order name: XRAY Chest (1 view); Complete Time: 12:48 [facility] 02/21 11:12 Order name: EKG; Complete Time: 11: [facility] 02/21 11:12 Order name: Cardiac monitoring; Complete Time: [facility] 02/21 11:12 Order name: EKG - Nurse/Tech; Complete Time: [facility] 02/21 11:12 Order name: IV Saline Lock; Complete Time: [facility] 02/21 11:12 Order name: Labs collected and sent; Complete Time: [facility] 02/21 11:12 Order name: O2 Per Protocol; Complete Time: 11:22 jh7 02/21 11:12 Order name: O2 Sat Monitoring; Complete Time: 7 EC:30 Rate is 126 beats/min. Rhythm is regular. QRS [place] is Normal. [place] interval is normal at jh7 140 msec. QRS interval is normal at 70 msec. QT interval is normal at 302 msec. No Q waves. T waves are Normal. No ST changes noted. Clinical impression: Sinus tachycardia. Administered Medications: 11:36 Drug: NS 0.9% IV 1000 ml IV at 1 bolus Per protocol; 1000 mL bolus Route: IV; Rate: 1 iw bolus; Site: right antecubital; 12:36 Follow up: IV Status: Completed infusion iw 11:36 Drug: Acetaminophen PO 650 mg PO once Route: PO; iw 12:30 Follow up: Response: No adverse reaction iw Disposition: 18:36 Co-signature as Attending Physician, Avelino Flores MD I reviewed the patient's care rn provided by the Advanced Practice Provider and agree with the diagnosis and treatment plan. Disposition Summary: 02/21/23 13:34 Discharge Ordered Notes: Location: Home [facility] Problem: new [facility] Symptoms: have improved [facility] Condition: Stable [facility] Diagnosis - Flulike illness 7 Followup: [facility] - With: Private Physician - When: 2 - 3 days - Reason: Recheck today's complaints Discharge Instructions: - Discharge Summary Sheet 7 - Viral Illness, Adult [facility] Forms: - Medication Reconciliation Form 7 - Thank You Letter 7 - Antibiotic Education [facility] - Patient Portal Instructions [facility] - Leadership Thank You Letter [facility] Signatures: Dispatcher [employer] Valentine Garner RN RN iw Nieto, Roman, MD MD rn Baxter, Heather, RN RN hb Hadash, Jennifer, FNP FNP [facility]
--- NOTE | 2023-02-21 13:35 | ER ---
Nurse's Notes [facility] Name: Effie Crouch Age: 47 yrs Sex: Female : 1975 Arrival Date: 02/21/2023 Time: 10:55 Bed 5 Private MD: Diagnosis: Flulike illness Presentation: 02/21 11:03 Chief complaint: Patient states: FLU-LIKE S/S WITH SOB, MALAISE, BODY ACHES SINCE LAST hb PM. Coronavirus screen: diarrhea, fatigue, headache, muscle pain, Client presents with at least one sign or symptom that may indicate coronavirus-19. Ebola Screen: No symptoms or risks identified at this time. Initial Sepsis Screen: Does the patient meet any 2 criteria? HR > 90 bpm. No. Patient's initial sepsis screen is negative. Does the patient have a suspected source of infection? No. Patient's initial sepsis screen is negative. Risk Assessment: Do you want to hurt yourself or someone else? Patient reports no desire to harm self or others. Onset of symptoms was February 20, 2023 at 21:00. 11:03 Method Of Arrival: Ambulatory hb 11:03 Acuity: MARNI 3 hb Triage Assessment: 13:40 Respiratory: the patient has mild shortness of breath. ld1 Historical: - Allergies: 11:05 No Known Drug Allergies; hb - Home Meds: 11:05 metformin 1 Oral tab 1 tab 2 times per day [Active]; lisinopril 10 mg Oral tab 1 tab hb once daily [Active]; buspirone 10 mg Oral tablet daily [Active]; - PMHx: 11:05 Anemia; blood transfusion; Diabetes - NIDDM; Hypertension; hb - PSHx: 11:05 Cholecystectomy; ; hysterectomy; hb - Immunization history:: Adult Immunizations up to date. - Social history:: Smoking status: Patient denies any tobacco usage or history of. Screenin:37 [facility] ED Fall Risk Assessment (Adult) Altered Elimination No (0 pt). Abuse screen: iw Denies threats or abuse. Denies injuries from another. Nutritional screening: No deficits noted. Tuberculosis screening: No symptoms or risk factors identified. Assessment: 11:36 General: Appears in no apparent distress. Behavior is cooperative, anxious. General: iw Reports feeling ill for fatigue for. Pain: Complains of pain in head. Neuro: Level of Consciousness is awake, alert, obeys commands, Oriented to person, place, time, situation, Moves all extremities. Full function Reports headache. Cardiovascular: Rhythm is sinus tachycardia. Respiratory: Airway is patent Respiratory effort is even, unlabored, Breath sounds are clear bilaterally. GI: Abdomen is flat, non-distended. Derm: Skin is intact, is healthy with good turgor. Musculoskeletal: Range of motion: intact in all extremities. Vital Signs: 11:03 BP 138 / 84; Pulse 134; Resp 20; Temp 97.2; Pulse Ox 100% ; Weight 62.14 kg; Height 5 hb ft. 2 in. ; 11:37 Pulse 119; Resp 16; Pulse Ox 99% on R/A; iw 13:08 BP 110 / 70; Pulse 113; Resp 22; Pulse Ox 97% on R/A; ld1 11:03 Body Mass Index 25.06 (62.14 kg, 157.48 cm) hb ED Course: 10:57 Patient arrived in ED. ts1 10:58 Mable Jean Baptiste FNP is PHCP. jh7 10:58 Avelino Flores MD is Attending Physician. 7 11:05 Triage completed. hb 11:36 Valentine Lan, RN is Primary Nurse. iw 11:37 Patient has correct armband on for positive identification. Provided Education on: . iw Client placed on continuous cardiac and pulse oximetry monitoring. NIBP monitoring applied. 11:38 Initial lab(s) drawn, by me, sent to lab. Inserted saline lock: 20 gauge in right iw antecubital area, using aseptic technique. Blood collected. 12:02 XRAY Chest (1 view) In Process Unspecified. EDMS 13:02 Flu Sent. ls5 13:02 SARS RAPID Sent. ls5 13:39 Arm band placed on right wrist. ld1 13:39 No provider procedures requiring assistance completed. IV discontinued, intact, ld1 bleeding controlled, No redness/swelling at site. Administered Medications: 11:36 Drug: NS 0.9% IV 1000 ml IV at 1 bolus Per protocol; 1000 mL bolus Route: IV; Rate: 1 iw bolus; Site: right antecubital; 12:36 Follow up: IV Status: Completed infusion iw 11:36 Drug: Acetaminophen PO 650 mg PO once Route: PO; iw 12:30 Follow up: Response: No adverse reaction iw Medication: 13:40 VIS not applicable for this client. ld1 Outcome: 13:34 Discharge ordered by MD. anders 13:39 Discharged to home ambulatory, ld1 13:39 Condition: stable 13:39 Discharge instructions given to patient, Instructed on discharge instructions, follow up and referral plans. Demonstrated understanding of instructions, follow-up care, 13:40 Patient left the ED. ld1 Signatures: Dispatcher [employer] Valentine Garner RN RN Gail Ledesma RN RN Maritza Hannon RN RN ld1 Mable Jean Baptiste, ROBOTICS TECHNOLOGIST ROBOTICS TECHNOLOGIST Karri Garcia5 Aleja Victor, PAS PAS ts1
[2023-02-21 14:32] VITALS: TEMP 97.2
[2023-02-21 14:47] VITALS: BP 110/70; O2SAT 97
== END ==
LOC: ER 10:55
DX: J11.1 Influenza due to unidentified influenza virus with other respiratory manifestations (principal); Z11.52 Encounter for screening for COVID-19; E11.9 Type 2 diabetes mellitus without complications; I10 Essential (primary) hypertension
CPT/HCPCS: 93005; 85025; 80048; 36415; 84484; 87804 ×2; 71045; 96360; 99284; 87811; J7030

== ENCOUNTER 2023-10-26 12:53 | Emergency (ER) | payer BC, SELFPAY ==
--- OUTSIDE RECORDS SUMMARY | 2023-10-26 12:59 | XMS REPORT | Continuity of Care Document ---
Author Name Unknown Address [address] [facility] [place] [address] [facility] thconnect Address [address] [facility] [address] [place] [address] Care Team Providers Care Herb Digger Name Role Phone HARDEEP ÁLVAREZ Primary Care Physician UnavailChasidy La MD Attending Clinician [phone] CHASIDY MAGALLANES Attending Clinician Unavailable JAYLEN KENNEDY Attending Clinician Unavailable MARIA VICTORIA LIVINGSTON Attending Clinician Unavail able Sury Choudhary Attending Clinician Unava Maria Victoria Liu Attending Clinician + SURY MUJICA Attending Clinician Unavailab le Doctor Unassigned, [place] Attending Clinician U judithailCHASIDY Solomon Admitting Clinician Unavailable Payers Payer Name Policy Type Policy Number Effective Date Expirati on Date Source Problems Condition Name Condition Details Condition Category Status Onset Date Resolution Date Last Treatment Date Treating Clinician Comments Source History of herpes genitalis History of herpes genitalis Disease Active 08-16 00:00: 00 [facility] Encounter for surveillan ce of contracept chalino, unspecifie d contracept desean Encounter for surveillan ce of contracept chalino, unspecifie d contracept desean Disease Active 03-02 00:00: 00 [facility] History of hysterecto my History of hysterecto my Disease Active 03-02 00:00: 00 [facility] Vaginal itching Vaginal itching Disease Active 03-02 00:00: 00 [facility] History of hypertensi on History of hypertensi on Disease Active 03-02 00:00: 00 [facility] Family history of diabetes mellitus Family history of diabetes mellitus Disease Active 03-02 00:00: 00 [facility] Class 1 obesity due to excess calories with body mass index (BMI) of 32.0 to 32.9 in adult, unspecifie d whether serious comorbidit y present Class 1 obesity due to excess calories with body mass index (BMI) of 32.0 to 32.9 in adult, unspecifie d whether serious comorbidit y present Disease Active 03-02 00:00: 00 [facility] Class 1 obesity due to excess calories with body mass index (BMI) of 32.0 to 32.9 in adult, unspecifie d whether serious comorbidit y present Class 1 obesity due to excess calories with body mass index (BMI) of 32.0 to 32.9 in adult, unspecifie d whether serious comorbidit y present Disease Active 03-02 00:00: 00 [facility] Well woman exam Well woman exam Disease Active 2018-02 00:00: 00 [facility] S/P KEILA-BSO S/P KEILA-BSO Disease Active 07-11 00:00: 00 [facility] Postoperat desean state Postoperat desean state Disease Active 07-10 00:00: 00 [facility] Symptomati c anemia Symptomati c anemia Disease Active 03-13 00:00: 00 [facility] ASCUS with positive high risk HPV cervical ASCUS with positive high risk HPV cervical Disease Active 2015-02 00:00: 00 [facility] Herpes, vulvar Herpes, vulvar Disease Active 2015-02 0 00:00: 00 [facility] Endometrio sis of uterus Endometrio sis of uterus Disease Active 06-20 00:00: 00 [facility] Adenomyosi s Adenomyosi s Disease Active 06-20 00:00: 00 [facility] ASCUS with 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 colpo 05/31/2014- negative bx#1 FU Pap ASCUScolp o 12/26/2015 [facility] Diabetes Diabetes Disease Active 03-23 00:00: 00 [facility] BMI 32.0-32.9, adult BMI 32.0-32.9, adult Disease Active 03-23 00:00: 00 Overview: Formattin g of this note might be different from the original. 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 Post BTL [facility] Allergies, Adverse Reactions, Alerts Allergy Name Allergy Type Status Severity Reaction(s) Onset Date Inactive Date Treating Clinician Comments Source NO KNOWN ALLERGIE S Drug Class Active [facility] Social History Social Habit Start Date Stop Date Quantity Comments [facility] of tobacco use Cigarette Smoker [facility] Tobacco Comment 2023-07-14 00:00:00 2023-07-14 00:00:00 smokes 7 x per day [facility] Alcoholic beverage intake 2023-07-14 00:00:00 2023-07-14 00:00:00 0 /d [facility] History of Social function 2023-07-14 00:00:00 2023-07-14 00:00:00 [facility] Cigarettes smoked current (pack per day) - Reported 2023-07-14 00:00:00 2023-07-14 00:00:00 [facility] Tobacco use and exposure 2023-07-14 00:00:00 2023-07-14 00:00:00 Smokeless tobacco non-user [facility] Cigarette pack-years 2023-07-14 00:00:00 2023-07-14 00:00:00 [facility] Alcohol intake 2021-08-16 00:00:00 2021-08-16 00:00:00 0 /d [facility] Sex assigned at 1975 00:00:00 1975 00:00:00 [facility] Smoking Status Start Date Stop Date Source Smokes tobacco daily 2023-07-14 00:00:00 [facility] Medications Ordered Medication Name Filled Medication Name Start Date Stop Date Current Medication? Ordering Clinician Indication Dosage Frequency Signature (SIG) Comments Components Source TAKE 1 TABLET BY MOUTH TWICE DAILY FOR 5 DAYS 10-17 00:00: 00 No TAKE 1 TABLET BY MOUTH TWICE DAILY FOR 5 DAYS 10-17 00:00: 00 No acyclovir 400 mg tablet 10-10 00:00: 00 Yes [id number] 400mg Take 1 tablet by mouth in the morning and 1 tablet in the evening. [facility] lisinopril 5 mg tablet 09-12 00:00: 00 No 1mg lisinopril 5 mg tablet 09-12 00:00: 00 No 1mg ondansetron 4 mg disintegrat ing tablet 08-30 00:00: 00 No 1mg Dose Unknown 08-30 00:00: 00 No Dose Unknown 08-30 00:00: 00 No Dose Unknown 08-30 00:00: 00 No ondansetron 4 mg disintegrat ing tablet 08-30 00:00: 00 No 1mg Dose Unknown 08-30 00:00: 00 No Dose Unknown 08-30 00:00: 00 No Dose Unknown 08-30 00:00: 00 No Dose Unknown 08-28 00:00: 00 No Dose Unknown 08-28 00:00: 00 No Victoza 3-Noah 0.6 [...] No 1mg fenofibrate micronized 130 mg capsule 2021-0 6-07 00:00: 00 No 1mg lovastatin 40 mg tablet 6-05 00:00: 00 No 1mg lovastatin 40 mg tablet 605 00:00: 00 No 1mg Novolin 70/30 U-100 [...] 00 No 1mg metformin 1,000 mg tablet - 00:00: 00 No 1mg metformin 1,000 mg [...] 1mg Dose Unknown 2-12 00:00: 00 No Novolin 70/30 U-100 Insulin 100 unit/mL subcutaneou s suspension 2-12 00:00: 00 No unit/mL (70-30) lisinopril 5 mg tablet 2-12 00:00: 00 No 1mg metformin 500 mg tablet 2-12 00:00: 00 No 1mg Dose Unknown 2-12 00:00: 00 No fenofibrate micronized 130 mg capsule 2019-02 00:00: 00 No 1mg fenofibrate micronized 130 mg capsule 2019-02 00:00: 00 No 1mg Novolin 70/30 [...] 24hr (osmotic) 04-05 00:00: 00 No 2mg insulin NPH hum/reg insulin hm (INSULIN 70/30 SC) 2018-02 09:33: 13 Yes inject under the skin. [facility] metformin HCl (METFORMIN ORAL) 2018-02 09:33: 13 Yes Take by mouth. [facility] Novolin 70/30 U-100 Insulin 100 unit/mL subcutaneou [...] No 1mg lisinopril 5 mg tablet 0 8 00:00: 00 No 1mg lisinopril 5 [...] 00 No 1mg lovastatin 40 mg tablet 0 311 00:00: 00 No 1mg lovastatin 40 mg tablet 3 00:00: 00 No 1mg bupropion HCl SR 150 mg tablet,12 hr sustained-r elease 2017-02 00:00: 00 No 1mg lovastatin 40 mg tablet 2017-02 105 00:00: 00 No 1mg bupropion HCl SR 150 mg tablet,12 hr sustained-r elease 2017-02 105 00:00: 00 No 1mg lovastatin 40 mg tablet 2017-02 105 00:00: 00 No 1mg Levemir U-100 Insulin 100 unit/mL subcutaneou s solution 2017-02 0-12 00:00: 00 No unit/mL Levemir U-100 Insulin 100 unit/mL subcutaneou s solution 2017-02 0-12 00:00: 00 No unit/mL bupropion HCl SR 150 mg tablet,12 hr sustained-r elease 2017-02 0-03 00:00: 00 No 1mg bupropion HCl SR 150 mg tablet,12 hr sustained-r elease 2017-02 0-03 00:00: 00 No 1mg Levemir U-100 Insulin 100 unit/mL subcutaneou s solution 9 00:00: 00 No unit/mL lovastatin 40 mg [...] mg tablet 04-04 00:00: 00 No 1mg Immunizations Ordered Immunization Name Filled Immunization Name Date Status Comments Source Influenza, seasonal, inj 2020-02-10 00:00:00 Completed Influenza, seasonal, inj 2020-02-10 00:00:00 Completed Influenza, seasonal, inj 2020-02-10 00:00:00 Completed Influenza Virus Vaccine Quad .5 mL IM 6+ MO 2019-02-03 00:00:00 Completed [facility] Influenza Virus Vaccine Quad .5 mL IM 6+ MO 2019-02-03 00:00:00 Completed [facility] Influenza Virus Vaccine Quad .5 mL IM 6+ MO 2018-01-28 00:00:00 Completed [facility] Influenza Virus Vaccine Quad .5 mL IM 6+ MO 2018-01-28 00:00:00 Completed [facility] TDAP 2014-03-23 00:00:00 Completed [facility] TDAP 2014-03-23 00:00:00 Completed [facility] TDAP Unknown Completed [facility] Influenza Virus Vaccine Quad .5 mL IM 6+ MO (FLUZONE/FLULAVAL/F LUARIX) Unknown Completed [facility] Influenza Virus Vaccine Quad .5 mL IM 6+ MO (FLUZONE/FLULAVAL/F LUARIX) Unknown Completed [facility] TDAP Unknown Completed [facility] Influenza Virus Vaccine Quad .5 mL IM 6+ MO (FLUZONE/FLULAVAL/F LUARIX) Unknown Completed [facility] Influenza Virus Vaccine Quad .5 mL IM 6+ MO (FLUZONE/FLULAVAL/F LUARIX) Unknown Completed [facility] TDAP Unknown Completed [facility] Influenza Virus Vaccine Quad .5 mL IM 6+ MO (FLUZONE/FLULAVAL/F LUARIX) Unknown Completed [facility] Influenza Virus Vaccine Quad .5 mL IM 6+ MO (FLUZONE/FLULAVAL/F LUARIX) Unknown Completed [facility] TDAP Unknown Completed [facility] Influenza Virus Vaccine Quad .5 mL IM 6+ MO (FLUZONE/FLULAVAL/F LUARIX) Unknown Completed [facility] Influenza Virus Vaccine Quad .5 mL IM 6+ MO (FLUZONE/FLULAVAL/F LUARIX) Unknown Completed [facility] TDAP Unknown Completed [facility] Influenza Virus Vaccine Quad .5 mL IM 6+ MO (FLUZONE/FLULAVAL/F LUARIX) Unknown Completed [facility] Influenza Virus Vaccine Quad .5 mL IM 6+ MO (FLUZONE/FLULAVAL/F LUARIX) Unknown Completed [facility] Vital Signs Vital Name Observation Time Observation Value Comments S ource Systolic blood pressure 2023-07-14 15:01:00 148 mm[Hg] [place] [facility] Diastolic blood pressure 2023-07-14 15:01:00 90 mm[Hg] [place] [facility] Heart rate 2023-07-14 15:00:00 97 /min [facility] Body temperature 2023-07-14 15:00:00 36.22 Cynthia [facility] Respiratory rate 2023-07-14 15:00:00 18 /min [facility] Body height 2023-07-14 15:00:00 154.9 cm [facility] Body weight 2023-07-14 15:00:00 62.596 kg [facility] BMI 2023-07-14 15:00:00 26.07 kg/m2 [facility] BP Systolic 2021-11-18 15:54:00 155 mm[Hg] BP [...] Goal Plan of Care Note [code = 63828-2] Goal Plan of Care Note [code = 56778-9] Goal Plan of Care Note [code = 51149-1] Goal Plan of Care Note [code = 31511-0] Goal Plan of Care Note [code = 47883-5] Goal Plan of Care Note [code = 87723-4] Goal Plan of Care Note [code = 50566-2] Goal Plan of Care Note [code = 03728-6] Goal Plan of Care Note [code = 17329-1] Goal Plan of Care Note [code = 11025-5] Goal Plan of Care Note [code = 59578-0] Goal Plan of Care Note [code = 20724-2] Goal Plan of Care Note [code = 09152-7] Goal Plan of Care Note [code = 14260-1] Goal Plan of Care Note [code = 37322-7] Goal Plan of Care Note [code = 49390-9] Goal Plan of Care Note [code = 39354-8] Goal Plan of Care Note [code = 22691-0] Goal Plan of Care Note [code = 76295-9] Goal Plan of Care Note [code = 57515-7] Goal Plan of Care Note [code = 66648-6] Goal Plan of Care Note [code = 25132-2] Goal Plan of Care Note [code = 89161-5] Goal Plan of Care Note [code = 92680-9] Goal Plan of Care Note [code = 85612-7] Goal Plan of Care Note [code = 18976-2] Goal Plan of Care Note [code = 62133-2] Goal Plan of Care Note [code = 63808-2] Goal Plan of Care Note [code = 15659-8] Goal Plan of Care Note [code = 13198-0] Goal Plan of Care Note [code = 07251-1] Goal Plan of Care Note [code = 02568-0] Goal Plan of Care Note [code = 10153-4] Goal Plan of Care Note [code = 88018-1] Goal Plan of Care Note [code = 44218-3] Goal Plan of Care Note [code = 91897-5] Goal Plan of Care Note [code = 49144-4] Goal Plan of Care Note [code = 04748-7] Goal Plan of Care Note [code = 96388-8] Goal Plan of Care Note [code = 79864-2] Goal Plan of Care Note [code = 82817-5] Goal Plan of Care Note [code = 82968-7] Goal Plan of Care Note [code = 68494-1] Goal Plan of Care Note [code = 24212-0] Goal Plan of Care Note [code = 17188-0] Goal Plan of Care Note [code = 36612-9] Goal Plan of Care Note [code = 47334-7] Goal Plan of Care Note [code = 75992-0] Goal Plan of Care Note [code = 07004-6] Goal Plan of Care Note [code = 55507-8] Goal Plan of Care Note [code = 61969-7] Goal Plan of Care Note [code = 13561-6] Goal Plan of Care Note [code = 16238-5] Goal Plan of Care Note [code = 29829-8] Goal Plan of Care Note [code = 27457-4] Goal Plan of Care Note [code = 76589-6] Goal Plan of Care Note [code = 96201-2] Goal Plan of Care Note [code = 36747-1] Goal Plan of Care Note [code = 91433-9] Goal Plan of Care Note [code = 78519-1] Goal Plan of Care Note [code = 72303-6] Goal Plan of Care Note [code = 82209-3] Goal Plan of Care Note [code = 86841-1] Goal Plan of Care Note [code = 10811-7] Goal Plan of Care Note [code = 28176-3] Goal Plan of Care Note [code = 71085-2] Goal Plan of Care Note [code = 91851-4] Goal Plan of Care Note [code = 10588-9] Goal Plan of Care Note [code = 52612-4] Goal Plan of Care Note [code = 00924-3] Goal Plan of Care Note [code = 78604-3] Goal Plan of Care Note [code = 60200-6] Goal Plan of Care Note [code = 64581-9] Goal Plan of Care Note [code = 94252-7] Goal Plan of Care Note [code = 02873-9] Goal Plan of Care Note [code = 52445-1] Goal Plan of Care Note [code = 34040-2] Goal Plan of Care Note [code = 41862-8] Goal Plan of Care Note [code = 43566-7] Goal Plan of Care Note [code = 27511-9] Goal Plan of Care Note [code = 53978-0] Goal Plan of Care Note [code = 53742-5] Goal Plan of Care Note [code = 30513-9] Goal Plan of Care Note [code = 60530-7] Goal Plan of Care Note [code = 79308-3] Goal Plan of Care Note [code = 88809-7] Goal Plan of Care Note [code = 71944-8] Goal Plan of Care Note [code = 56977-6] Goal Plan of Care Note [code = 74793-9] Goal Plan of Care Note [code = 03497-5] Goal Plan of Care Note [code = 37813-7] Goal Plan of Care Note [code = 44830-0] Goal Plan of Care Note [code = 46502-2] Goal Plan of Care Note [code = 96167-3] Goal Plan of Care Note [code = 24625-4] Goal Plan of Care Note [code = 17215-8] Goal Plan of Care Note [code = 00544-1] Goal Plan of Care Note [code = 04402-8] Goal Plan of Care Note [code = 65845-7] Encounters Start Date/Time End Date/Time Encounter Type Admission Type Attending [facility] Care Department Encounter ID Source 2023-07-29 00:00:00 2023-07-29 15:30:21 Telephone Chasidy Magallanes [facility] 1.2.840.114 350.1.13.10 4.2.7.2.686 [id number] [facility] 2023-07-23 15:33:57 2023-07-23 23:59:00 Outpatient R CHASIDY MAGALLANES [facility] [id number] [facility] 2023-07-23 15:33:57 2023-07-23 23:59:00 Hospital Encounter AdChasidy hightower [facility] 1..840.114 350.1.13.10 4.2.7.2.686 [id number] [facility] 2023-07-14 11:30:00 2023-07-14 11:30:00 Outpatient R JAYLEN KENNEDY [facility] [id number] [facility] 2023-07-14 09:45:00 2023-07-14 10:40:24 Outpatient R NEYDA CHASIDY [facility] [id number] [facility] 2023-07-14 09:45:00 2023-07-14 10:40:24 Office Visit Chasidy Magallanes [facility] PROFESS[facility] 1..840.114 350.1.13.10 4.2.7.2.686 [id number] [facility] 2022-08-22 13:00:00 2022-08-22 13:00:00 Outpatient R [facility] [id number] [facility] 2022-07-08 00:00:00 2022-07-08 00:00:00 Telephone Sury Mujica [facility] METER ATTENDANT [facility] MATERNAL & CHILD [facility] 1..840.114 350.1.13.10 4.2.7.2.686 [id number] [facility] 2022-03-14 11:42:30 2022-03-14 11:42:30 Outpatient [facility] AMANDA [id number] Jl Marie 2022-03-13 15:56:56 2022-03-13 15:56:56 Outpatient [facility] [id number] Jl Marie 2021-11-18 00:00:00 2021-11-18 00:00:00 Outpatient Visit [id number] 2021-10-10 00:00:00 2021-10-10 00:00:00 Telephone Sury Mujica [facility] METER ATTENDANT [facility] MATERNAL & CHILD [facility] 1.2.840.114 350.1.13.10 4.2.7.2.686 [id number] [facility] 2021-10-08 00:00:00 2021-10-08 00:00:00 Telephone Sury Mujica [facility] METER ATTENDANT [facility] CHILD [facility] 1..840.114 350.1.13.10 4.2.7.2.686 [id number] [facility] 2021-09-09 00:00:00 2021-09-09 00:00:00 Outpatient Visit [id number] 2021-08-30 00:00:00 2021-08-30 00:00:00 Outpatient Visit [id number] 2021-08-27 00:00:00 2021-08-27 00:00:00 Telephone Maria Victoria Livingston [facility] METER ATTENDANT [facility] & CHILD [facility] 1.2.840.114 350.1.13.10 4.2.7.2.686 [id number] [facility] 2021-08-16 09:00:00 2021-08-16 09:54:52 Outpatient R SURY MUJICA [facility] [id number] [facility] 2021-08-16 09:00:00 2021-08-16 09:54:52 Office Visit Sury Mujica [facility] METER ATTENDANT [facility] MATERNAL & CHILD [facility] 1.840.114 350.1.13.10 4.2.7.2.686 [id number] [facility] 2021-08-16 09:00:00 2021-08-16 09:00:00 Outpatient R SURY MUJICA [facility] [id number] [facility] 2021-08-16 08:30:00 2021-08-16 08:30:00 Outpatient SURY CHOUDHURY [facility] [id number] [facility] 2021-08-16 00:00:00 2021-08-16 00:00:00 Orders Only Doctor Unassigned, [place] [facility] 1.84.114 350.1.13.10 4.2.7.2.686 [id number] [facility] 2021-07-28 00:00:00 2021-07-28 00:00:00 RefSury Davis [facility] METER ATTENDANT [facility] & CHILD [facility] 1.840.114 350.1.13.10 4.2.7.2.686 [id number] [facility] 2020-06-27 00:00:00 2020-06-27 00:00:00 Telephone Maria Victoria Livingston [facility] METER ATTENDANT [facility] & CHILD [facility] 1.84.114 350.1.13.10 4.2.7.2.686 [id number] [facility] 2020-05-22 00:00:00 2020-05-22 00:00:00 Porfirio Beaulieunda R [facility] METER ATTENDANT [facility] MATERNAL & CHILD [facility] 1.2.840.114 350.1.13.10 4.2.7.2.686 [id number] [facility] 2020-05-22 00:00:00 2020-05-22 00:00:00 Refill Sury Mujica [facility] METER ATTENDANT [facility] & CHILD [facility] 1.2.840.114 350.1.13.10 4.2.7.2.686 [id number] 2020-05-21 00:00:00 2020-05-21 00:00:00 Refill Maria Victoria Livingston [facility] METER ATTENDANT [facility] & CHILD [facility] 1.2.840.114 350.1.13.10 4.2.7.2.686 [id number] [facility] 2020-05-21 00:00:00 2020-05-21 00:00:00 RefMaria Victoria Collins [facility] METER ATTENDANT [facility] MATERNAL & CHILD [facility] 1.2.840.114 350.1.13.10 4.2.7.2.686 [id number] 2020-04-03 00:00:00 2020-04-03 00:00:00 Outpatient SURY CHOUDHURY [facility] [id number] [facility] 2020-03-06 00:00:00 2020-03-06 00:00:00 Telephone Sury Mujica [facility] METER ATTENDANT [facility] & CHILD [facility] 1.2.840.114 350.1.13.10 4.2.7.2.686 [id number] [facility] 2020-03-06 00:00:00 2020-03-06 00:00:00 Telephone Sury Mujica [facility] METER ATTENDANT [facility] & CHILD [facility] 1.2.840.114 350.1.13.10 4.2.7.2.686 [id number] 2020-03-02 09:22:04 2020-03-02 10:49:08 Office Visit Sury Mujica [facility] METER ATTENDANT [facility] & CHILD [facility] 1.840.114 350.1.13.10 4.2.7.2.686 [id number] [facility] 2020-03-02 09:30:00 2020-03-02 09:30:00 Outpatient SURY CHOUDHURY [facility] [id number] [facility] 2020-03-02 09:30:00 2020-03-02 09:30:00 Outpatient SURY CHOUDHURY [facility] [id number] [facility] 2020-03-02 09:00:00 2020-03-02 09:00:00 Outpatient MARIA VICTORIA VALENTINE [facility] [id number] [facility] 2020-03-02 00:00:00 2020-03-02 00:00:00 Orders Only Doctor Unassigned, [place] [facility] ..114 350.1.13.10 4.2.7.2.686 [id number] [facility] 2020-02-29 00:00:00 2020-02-29 00:00:00 Telephone Maria Victoria Livingston [facility] METER ATTENDANT [facility] & CHILD [facility] ..114 350.1.13.10 4.2.7.2.686 [id number] [facility] 2020-02-29 00:00:00 2020-02-29 00:00:00 Refill Maria Victoria Livingston [facility] METER ATTENDANT [facility] & CHILD [facility] 1.840.114 350.1.13.10 [phone] [id number] [facility] 2019-12-30 00:00:00 2019-12-30 00:00:00 Orders Only Doctor Unassigned, [place] [facility] [id number] [id number] [facility] 2019-08-02 08:15:00 2019-08-02 08:15:00 Outpatient R MUJICAPORFIRIO [place] [id number] [facility] 2019-08-02 07:45:14 2019-08-02 08:13:52 Office Visit Sury Mujica Napoleon [facility] METER ATTENDANT [facility] [id number] [id number] [id number] [facility] 2019-07-29 00:00:00 2019-07-29 00:00:00 Telephone Maria Victoria Livingston [facility] METER ATTENDANT [facility] [id number] [id number] [facility] Results Test Description Test Time Test Comments Results Result Co mments Source LIPID [id number] 06:45:27* Test Item Value Reference Range Interpretation [...] SPECIMENS. FOR MOREINFORMATION, SEE CLIENT ANNOUNCEMENT AT [email or web address] CalcLDL-C RISK RATIO LDL/HDL (test code = 2238) (NOTE) RATIO <3.22 UNABLE TO DONNIE CULATE HEMOGLOBIN [id number] 03:11:31* Test Item Value Reference Range Interpretation Comme nts HEMOGLOBIN A1c (test code = 96791) 7.6 % 4.2-5.6 H [employer] GUIDELINES FOR HGB A1C: [...] CONSULTATION. UNLESS OTHERWISE INDICATED, ALL TESTING PERFORMED [facility] [employer] [address] [place] [address] ELECTR[employer] RAZOR ASSEMBLER: MARLENE GONZALEZ M.D. CLIA NUMBER [id number] [facility] [place]. [id number] CBC W/AUTO DIFF WITH [id number] 02:40:09* Test Item Value Reference Range Interpretation [...] 0.00-0.10 ABS NUCLEATED RBCS (test code = 27995) 0.00 K/UL 0.00-0.11 LIPID [id number] 04:31:34* Test Item Value Reference Range Interpretation Comme nts CHOLESTEROL (test code = 2210) 289 MG/DL <200 H TRIGLYCERIDES (test code = 2232) 1152 MG/DL <150 H [facility]EN [facility] RES[facility] RECHECKED AND VERIFIED HDL CHOLESTEROL (test [...] SPECIMENS. FOR MOREINFORMATION, SEE CLIENT ANNOUNCEMENT AT [email or web address] CalcLDL-C RISK RATIO LDL/HDL (test code = 2238) (NOTE) RATIO <3.22 UNABLE TO DONNIE CULATE COMPREHENSIVE METABOLIC [id number] 04:31:34* Test Item Value Reference Range Interpretation Comme nts GLUCOSE (test code = 2217) 103 MG/DL 70-99 H BUN (test code = 2207) 7 MG/DL 6-20 CREATININE (test code = 2213) 0.53 MG/DL 0.60-1.30 L eGFR (2020 CKD-EPI) (test code = ) 114 ML/MIN/1.73 >60 CALC BUN/CREAT (test code = 2234) 13 RATIO 6-28 SODIUM (test code = 2230) 140 MEQ/L 133-146 POTASSIUM (test code = 2227) 3.9 MEQ/L 3.5-5.4 CHLORIDE (test code = 2214) 105 MEQ/L 95-107 CARBON DIOXIDE (test code = 2205) 22 MEQ/L 19-31 CALCIUM (test code = 2208) 9.0 MG/DL 8.5-10.5 PROTEIN, TOTAL (test code = 2228) 6.3 G/DL 6.1-8.3 ALBUMIN (test code = 2200) 4.1 G/DL 3.5-5.2 CALC GLOBULIN (test code = 2239) 2.2 G/DL 1.9-3.7 CALC A/G RATIO (test code = 2233) 1.9 RATIO 1.0-2.6 BILIRUBIN, TOTAL (test code = 2206) 0.3 MG/DL See_Comment [Automated me ssage] The system which generated this result transmitted reference range: <=1.2. The reference range was not used to interpret this result as normal/abnormal. ALKALINE PHOSPHATASE (test code = 2203) 74 U/L 40-123 AST (test code = 2217) 20 U/L 9-40 ALT (test code = 9) 25 U/L 5-40 UNLESS OTHERWISE INDICATED, ALL TESTING PERFORMED [facility] [address] [place] [address] ELECTRIC RAZOR ASSEMBLER: MARLENE GONZALEZ M.D. CLIA NUMBER [id number] [facility] [place]. [id number] HEMOGLOBIN [id number] 03:56:58* Test Item Value Reference Range Interpretation Comme nts HEMOGLOBIN A1c (test code = 85082) 7.6 % 4.2-5.6 H [employer] GUIDELINES FOR HGB A1C: [...] CONSIDER ALTERNATE TESTING OR LABORATORY CONSULTATION. LIPID [id number] 00:00:00* Test Item Value Reference Range Interpretation Comme nts CHOLESTEROL (test code = 2210) 289 MG/DL TRIGLYCERIDES (test code = 2232) 1152 MG/DL HDL CHOLESTEROL (test code = 2220) 29 MG/DL CALC LDL CHOL (test code = 2237) (NOTE) MG/DL RISK RATIO LDL/HDL (test cod e = 2238) (NOTE) RATIO HEMOGLOBIN [id number] 00:00:00* Test Item Value Reference Range Interpretation Comme nts HEMOGLOBIN A1c (test code = 69627) 7.6 % COMPREHENSIVE METABOLIC [id number] 00:00:00* Test Item Value Reference Range Interpretation Comme nts GLUCOSE (test code = 2217) 103 MG/DL BUN (test code = 2208) 7 MG/DL CREATININE (test code = 2214) 0.53 MG/DL eGFR (2020 CKD-EPI) (test code = 59813) 114 ML/MIN/1.73 CALC BUN/CREAT (test code = [...] (test code = 2219) 25 U/L LIPID [id number] 00:00:00* Test Item Value Reference Range Interpretation Comme nts CHOLESTEROL (test code = 2210) 289 MG/DL TRIGLYCERIDES (test code = 2232) 1152 MG/DL HDL CHOLESTEROL (test code = 2220) 29 MG/DL CALC LDL CHOL (test code = 2237) (NOTE) MG/DL RISK RATIO LDL/HDL (test cod e = 2238) (NOTE) RATIO HEMOGLOBIN [id number] 00:00:00* Test Item Value Reference Range Interpretation Comme nts HEMOGLOBIN A1c (test code = 61925) 7.6 % COMPREHENSIVE METABOLIC [id number] 00:00:00* Test Item Value Reference Range Interpretation Comme nts GLUCOSE (test code = 2217) 103 MG/DL BUN (test code = 2208) 7 MG/DL CREATININE (test code = 2214) 0.53 MG/DL eGFR (2020 CKD-EPI) (test code = 91304) 114 ML/MIN/1.73 CALC BUN/CREAT (test code = [...] = 2219) 25 U/L ALBUMIN/CREATININE RATIO, URINE, [id number] 06:08:56* Test Item Value Reference Range Interpretation Comme nts CREATININE, URINE, RANDOM (test code = 2072) 170.9 MG/DL NOT ESTAB ALBUMIN, URINE, RANDOM (test code = 72150) 45.7 MG/DL NOT ESTAB CALC ALBUMIN/CREAT, RND (test code = 74615) 267 MG/G <30 H Note: Albumin/Creatinine ratio reference interval reflects ADA and NKF guidelines. VITAMIN D, 25 [id number] 04:23:26* Test Item Value Reference Range Interpretation [...] . . NG/ML 30-100 MICROALBUMIN/CREATININE, RANDOM AND [id number] 00:00:00* Test Item Value Reference Range Interpretation Comme nts CREATININE, URINE, RANDOM (t est code = 207) 170.9 MG/DL ALBUMIN, URINE, RANDOM (test code = 83912) 45.7 MG/DL CALC ALBUMIN/CREAT, RND (monique t code = 42436) 267 MG/G VITAMIN D, 25 [id number] 00:00:00* Test Item Value Reference Range Interpretation Comme nts VITAMIN D, 25 OH (test code = 4958) 9 NG/ML MICROALBUMIN/CREATININE, RANDOM AND [id number] 00:00:00* Test Item Value Reference Range Interpretation Comme nts CREATININE, URINE, RANDOM (t est code = 207) 170.9 MG/DL ALBUMIN, URINE, RANDOM (test code = 69307) 45.7 MG/DL CALC ALBUMIN/CREAT, RND (monique t code = 15242) 267 MG/G VITAMIN D, 25 [id number] 00:00:00* Test Item Value Reference Range Interpretation Comme nts VITAMIN D, 25 OH (test code = 4958) 9 NG/ML MICROALBUMIN/CREATININE, RANDOM AND [id number] 00:00:00* Test Item Value Reference Range Interpretation Comme nts CREATININE, URINE, RANDOM (t est code = 207) 170.9 MG/DL ALBUMIN, URINE, RANDOM (test code = 62015) 45.7 MG/DL CALC ALBUMIN/CREAT, RND (monique t code = 00418) 267 MG/G VITAMIN D, 25 [id number] 00:00:00* Test Item Value Reference Range Interpretation Comme nts VITAMIN D, 25 OH (test code = 4958) 9 NG/ML LIPID [id number] 22:05:35* Test Item Value Reference Range Interpretation [...] SPECIMENS. FOR MOREINFORMATION, SEE CLIENT ANNOUNCEMENT AT [email or web address] CalcLDL-C RISK RATIO LDL/HDL (test code = 2238) (NOTE) RATIO <3.22 UNABLE TO DONNIE CULATE COMPREHENSIVE METABOLIC [id number] 22:05:35* Test Item Value Reference Range Interpretation Comme nts GLUCOSE (test code = 2217) 240 MG/DL 70-99 H BUN (test code = 220) 9 MG/DL 6-20 CREATININE (test code = 2214) 0.47 MG/DL 0.60-1.30 L eGFR (2020 CKD-EPI) (test code = 14635) 118 ML/MIN/1.73 >60 CALC BUN/CREAT (test code = 2235) 19 RATIO 6-28 SODIUM (test code = 223) 134 MEQ/L 133-146 POTASSIUM (test code = 2228) 4.4 MEQ/L 3.5-5.4 CHLORIDE (test code = 2215) 93 MEQ/L 95-107 L CARBON DIOXIDE (test code = 2206) 19 MEQ/L 19-31 CALCIUM (test code = 220) 9.5 MG/DL 8.5-10.5 PROTEIN, TOTAL (test code = 2229) 6.9 G/DL 6.1-8.3 ALBUMIN (test code = 220) 4.3 G/DL 3.5-5.2 CALC GLOBULIN (test code = 2240) 2.6 G/DL 1.9-3.7 CALC A/G RATIO (test code = 2234) 1.7 RATIO 1.0-2.6 BILIRUBIN, TOTAL (test code = 2206) 0.3 MG/DL See_Comment [Automated me ssage] The system which generated this result transmitted reference range: <=1.2. The reference range was not used to interpret this result as normal/abnormal. ALKALINE PHOSPHATASE (test code = 2203) 94 U/L 40-120 AST (test code = 221) 9 U/L 9-40 ALT (test code = 221) 49 U/L 5-40 H IRON, [id number] 22:05:35* Test Item Value Reference Range Interpretation Comme nts IRON, SERUM (test code = 2221) 91 UG/DL 37-145 UNLESS OTHERWISE INDICATED, ALL TESTING PERFORMED ATCLINICAL PATHOLOGY [employer] [address] [place] [address] ELECTRIC RAZOR ASSEMBLER: MARLENE GONZALEZ M.D. CLIA NUMBER [id number] [facility] [place]. [id number] VITAMIN [id number] 05:31:10* Test Item Value Reference Range Interpretation Comme nts VITAMIN B-12 (test code = 2840) >2000 PG/ML 200-950 H COMPREHENSIVE METABOLIC [id number] 00:00:00* Test Item Value Reference Range Interpretation Comme nts GLUCOSE (test code = 7) 240 MG/DL BUN (test code = 2208) 9 MG/DL CREATININE (test code = 2214) 0.47 MG/DL eGFR (2020 CKD-EPI) (test code = 96058) 118 ML/MIN/1.73 CALC BUN/CREAT (test code = [...] (test code = 2219) 49 U/L VITAMIN [id number] 00:00:00* Test Item Value Reference Range Interpretation Comme nts VITAMIN B-12 (test code = 2840) >2000 PG/ML IRON, [id number] 00:00:00* Test Item Value Reference Range Interpretation Comme nts IRON, SERUM (test code = 2222) 91 UG/DL LIPID [id number] 00:00:00* Test Item Value Reference Range Interpretation Comme nts CHOLESTEROL (test code = 2210) 814 MG/DL TRIGLYCERIDES (test code = 2232) 549 MG/DL HDL CHOLESTEROL (test code = 2220) 20 MG/DL CALC LDL CHOL (test code = 2237) (NOTE) MG/DL RISK RATIO LDL/HDL (test cod e = 2238) (NOTE) RATIO COMPREHENSIVE METABOLIC [id number] 00:00:00* Test Item Value Reference Range Interpretation Comme nts GLUCOSE (test code = 2217) 240 MG/DL BUN (test code = 2208) 9 MG/DL CREATININE (test code = 2214) 0.47 MG/DL eGFR (2020 CKD-EPI) (test code = 08684) 118 ML/MIN/1.73 CALC BUN/CREAT (test code = [...] (test code = 2219) 49 U/L VITAMIN [id number] 00:00:00* Test Item Value Reference Range Interpretation Comme nts VITAMIN B-12 (test code = 2840) >2000 PG/ML IRON, [id number] 00:00:00* Test Item Value Reference Range Interpretation Comme nts IRON, SERUM (test code = 2222) 91 UG/DL LIPID [id number] 00:00:00* Test Item Value Reference Range Interpretation Comme nts CHOLESTEROL (test code = 2210) 814 MG/DL TRIGLYCERIDES (test code = 2232) 549 MG/DL HDL CHOLESTEROL (test code = 2220) 20 MG/DL CALC LDL CHOL (test code = 2237) (NOTE) MG/DL RISK RATIO LDL/HDL (test cod e = 2238) (NOTE) RATIO COMPREHENSIVE METABOLIC [id number] 00:00:00* Test Item Value Reference Range Interpretation Comme nts GLUCOSE (test code = 2217) 240 MG/DL BUN (test code = 2208) 9 MG/DL CREATININE (test code = 2214) 0.47 MG/DL eGFR (2020 CKD-EPI) (test code = 37908) 118 ML/MIN/1.73 CALC BUN/CREAT (test code = [...] (test code = 2219) 49 U/L VITAMIN [id number] 00:00:00* Test Item Value Reference Range Interpretation Comme nts VITAMIN B-12 (test code = 2840) >2000 PG/ML IRON, [id number] 00:00:00* Test Item Value Reference Range Interpretation Comme nts IRON, SERUM (test code = 2222) 91 UG/DL LIPID [id number] 00:00:00* Test Item Value Reference Range Interpretation Comme nts CHOLESTEROL (test code = 2210) 814 MG/DL TRIGLYCERIDES (test code = 2232) 549 MG/DL HDL CHOLESTEROL (test code = 2220) 20 MG/DL CALC LDL CHOL (test code = 2237) (NOTE) MG/DL RISK RATIO LDL/HDL (test cod e = 2238) (NOTE) RATIO CBC W/AUTO DIFF WITH [id number] 03:36:44* Test Item Value Reference Range Interpretation [...] = 1065) 0.0 /100 WBC'S See_Comment [Automated [employer]] The system which generated this result [...] 0.00-0.10 ABS NUCLEATED RBCS (test code = 37957) 0.02 K/UL 0.00-0.11 HEMOGLOBIN [id number] 03:25:41* Test Item Value Reference Range Interpretation Comme nts HEMOGLOBIN A1c (test code = 28538) 8.7 % 4.2-5.6 H [employer] GUIDELINES FOR HGB A1C: [...] CONSIDER ALTERNATE TESTING OR LABORATORY CONSULTATION. HEMOGLOBIN [id number] 00:00:00* Test Item Value Reference Range Interpretation Comme nts HEMOGLOBIN A1c (test code = 09947) 8.7 % CBC W/AUTO [id number] 00:00:00* Test Item Value Reference Range Interpretation [...] ABS NUCLEATED RBCS (test cod e = 81248) 0.02 K/UL HEMOGLOBIN [id number] 00:00:00* Test Item Value Reference Range Interpretation Comme nts HEMOGLOBIN A1c (test code = 14193) 8.7 % CBC W/AUTO [id number] 00:00:00* Test Item Value Reference Range Interpretation [...] ABS NUCLEATED RBCS (test cod e = 59052) 0.02 K/UL HEMOGLOBIN [id number] 00:00:00* Test Item Value Reference Range Interpretation Comme nts HEMOGLOBIN A1c (test code = 23611) 8.7 % CBC W/AUTO [id number] 00:00:00* Test Item Value Reference Range Interpretation [...] ABS NUCLEATED RBCS (test cod e = 02031) 0.02 K/UL [id number] 04:11:20* Test Item Value Reference Range Interpretation Comme nts LIPASE (test code = 2057) 18 U/L 13-60 [id number] 04:11:20* Test Item Value Reference Range Interpretation Comme nts AMYLASE (test code = 2205) 41 U/L 28-100 UNLESS OTHERWISE INDICATED, ALL TESTING PERFORMED [facility] [employer] [employer] [address] [place] [address] ELECTRIC RAZOR ASSEMBLER: MARLENE GONZALEZ M.D. IA NUMBER [id number] [facility] [place]. [id number] 00:00:00* Test Item Value Reference Range Interpretation Comme nts AMYLASE (test code = 5) 41 U/L [id number] 00:00:00* Test Item Value Reference Range Interpretation Comme nts LIPASE (test code = 2057) 18 U/L [id number] 00:00:00* Test Item Value Reference Range Interpretation Comme nts AMYLASE (test code = 5) 41 U/L [id number] 00:00:00* Test Item Value Reference Range Interpretation Comme nts LIPASE (test code = 2057) 18 U/L [id number] 00:00:00* Test Item Value Reference Range Interpretation Comme nts AMYLASE (test code = 2205) 41 U/L [id number] 00:00:00* Test Item Value Reference Range Interpretation Comme nts LIPASE (test code = 8) 18 U/L HEMOGLOBIN [id number] 05:11:03* Test Item Value Reference Range Interpretation Comme nts HEMOGLOBIN A1c (test code = 27336) 8.2 % 4.2-5.6 H [employer] GUIDELINES FOR HGB A1C: [...] ALTERNATE TESTING OR LABORATORY CONSULTATION. COMPREHENSIVE METABOLIC [id number] 04:59:22* Test Item Value Reference Range Interpretation Comme nts GLUCOSE (test code = 2217) 216 MG/DL 70-99 H BUN (test code = 2208) 7 MG/DL 6-20 CREATININE (test code = 2213) 0.35 MG/DL 0.60-1.30 L eGFR (2020 CKD-EPI) (test code = ) 127 ML/MIN/1.73 >60 CALC BUN/CREAT (test code = 2234) 20 RATIO 6-28 SODIUM (test code = 2230) 134 MEQ/L 133-146 POTASSIUM (test code = 2227) 4.0 MEQ/L 3.5-5.4 CHLORIDE (test code = 2214) 100 MEQ/L 95-107 CARBON DIOXIDE (test code = 2205) 21 MEQ/L 19-31 CALCIUM (test code = 2208) 8.8 MG/DL 8.5-10.5 PROTEIN, TOTAL (test code = 2228) 6.5 G/DL 6.1-8.3 ALBUMIN (test code = 2200) 3.7 G/DL 3.5-5.2 CALC GLOBULIN (test code = 2239) 2.8 G/DL 1.9-3.7 CALC A/G RATIO (test code = 2233) 1.3 RATIO 1.0-2.6 BILIRUBIN, TOTAL (test code = 2206) <0.2 MG/DL See_Comment [Automated me ssage] The system which generated this result transmitted reference range: <=1.2. The reference range was not used to interpret this result as normal/abnormal. ALKALINE PHOSPHATASE (test code = 2203) 111 U/L 40-120 AST (test code = 2217) 23 U/L 9-40 ALT (test code = 2218) <5 U/L 5-40 L LIPID [id number] 04:59:22* Test Item Value Reference Range Interpretation Comme nts CHOLESTEROL (test code = 2210) 539 MG/DL <200 H TRIGLYCERIDES (test code = 2232) 2237 MG/DL <150 H [facility] REC[facility] AND VERIFIED HDL CHOLESTEROL (test [...] SPECIMENS. FOR MOREINFORMATION, SEE CLIENT ANNOUNCEMENT AT [email or web address] CalcLDL-C RISK RATIO LDL/HDL (test code = 2238) 7.20 RATIO <3.22 H UNABLE TO DONNIE CULATE UNLESS OTHERWISE INDICATED, ALL TESTING PERFORMED [facility] Tag PATHOLOG[facility] [employer] [address] [place] [address] ELECT[employer]ZOR ASSEMBLER: MARLENE GONZALEZ M.D. CLIA NUMBER [id number] [facility] [place] [place]. [id number] CBC W/AUTO DIFF WITH [id number] 04:14:18* Test Item Value Reference Range Interpretation [...] = 1065) 0.0 /100 WBC'S See_Comment [Automated [employer]] The system which generated this result [...] 0.00-0.10 ABS NUCLEATED RBCS (test code = 19923) 0.00 K/UL 0.00-0.11 COMPREHENSIVE METABOLIC [id number] 00:00:00* Test Item Value Reference Range Interpretation Comme nts GLUCOSE (test code = 7) 216 MG/DL BUN (test code = 2208) 7 MG/DL CREATININE (test code = 2214) 0.35 MG/DL eGFR (2020 CKD-EPI) (test code = 18091) 127 ML/MIN/1.73 CALC BUN/CREAT (test code = [...] (test code = 2219) <5 U/L HEMOGLOBIN [id number] 00:00:00* Test Item Value Reference Range Interpretation Comme nts HEMOGLOBIN A1c (test code = 31199) 8.2 % LIPID [id number] 00:00:00* Test Item Value Reference Range Interpretation Comme nts CHOLESTEROL (test code = 2210) 539 MG/DL TRIGLYCERIDES (test code = 2232) 2237 MG/DL HDL CHOLESTEROL (test code = 2220) 25 MG/DL CALC LDL CHOL (test code = 2237) (NOTE) MG/DL RISK RATIO LDL/HDL (test cod e = 2238) 7.20 RATIO CBC W/AUTO [id number] 00:00:00* Test Item Value Reference Range Interpretation [...] ABS NUCLEATED RBCS (test cod e = 74549) 0.00 K/UL COMPREHENSIVE METABOLIC [id number] 00:00:00* Test Item Value Reference Range Interpretation Comme nts GLUCOSE (test code = 2217) 216 MG/DL BUN (test code = 2208) 7 MG/DL CREATININE (test code = 2214) 0.35 MG/DL eGFR (2020 CKD-EPI) (test code = 75797) 127 ML/MIN/1.73 CALC BUN/CREAT (test code = [...] (test code = 2219) <5 U/L HEMOGLOBIN [id number] 00:00:00* Test Item Value Reference Range Interpretation Comme nts HEMOGLOBIN A1c (test code = 55938) 8.2 % LIPID [id number] 00:00:00* Test Item Value Reference Range Interpretation Comme nts CHOLESTEROL (test code = 2210) 539 MG/DL TRIGLYCERIDES (test code = 2232) 2237 MG/DL HDL CHOLESTEROL (test code = 2220) 25 MG/DL CALC LDL CHOL (test code = 2237) (NOTE) MG/DL RISK RATIO LDL/HDL (test cod e = 2238) 7.20 RATIO CBC W/AUTO [id number] 00:00:00* Test Item Value Reference Range Interpretation [...] ABS NUCLEATED RBCS (test cod e = 21781) 0.00 K/UL COMPREHENSIVE METABOLIC [id number] 00:00:00* Test Item Value Reference Range Interpretation Comme nts GLUCOSE (test code = 2217) 216 MG/DL BUN (test code = 2208) 7 MG/DL CREATININE (test code = 2214) 0.35 MG/DL eGFR (2020 CKD-EPI) (test code = 61310) 127 ML/MIN/1.73 CALC BUN/CREAT (test code = [...] (test code = 2219) <5 U/L HEMOGLOBIN [id number] 00:00:00* Test Item Value Reference Range Interpretation Comme nts HEMOGLOBIN A1c (test code = 48090) 8.2 % LIPID [id number] 00:00:00* Test Item Value Reference Range Interpretation Comme nts CHOLESTEROL (test code = 2210) 539 MG/DL TRIGLYCERIDES (test code = 2232) 2237 MG/DL HDL CHOLESTEROL (test code = 2220) 25 MG/DL CALC LDL CHOL (test code = 2237) (NOTE) MG/DL RISK RATIO LDL/HDL (test cod e = 2238) 7.20 RATIO CBC W/AUTO [id number] 00:00:00* Test Item Value Reference Range Interpretation [...] ABS NUCLEATED RBCS (test cod e = 82436) 0.00 K/UL [id number] 00:00:00* Test Item Value Reference Range Interpretation Comme nts LIPASE (test code = 2058) 14 U/L [id number] 00:00:00* Test Item Value Reference Range Interpretation Comme nts AMYLASE (test code = 5) 44 U/L [id number] 00:00:00* Test Item Value Reference Range Interpretation Comme nts LIPASE (test code = 2057) 14 U/L [id number] 00:00:00* Test Item Value Reference Range Interpretation Comme nts AMYLASE (test code = 2205) 44 U/L [id number] 00:00:00* Test Item Value Reference Range Interpretation Comme nts LIPASE (test code = 205) 14 U/L [id number] 00:00:00* Test Item Value Reference Range Interpretation Comme nts AMYLASE (test code = 2205) 44 U/L LIPID [id number] 00:00:00* Test Item Value Reference Range Interpretation Comme nts CHOLESTEROL (test code = 2210) 346 MG/DL TRIGLYCERIDES (test code = 2232) 1167 MG/DL HDL CHOLESTEROL (test code = 2220) 37 MG/DL CALC LDL CHOL (test code = 2237) (NOTE) MG/DL RISK RATIO LDL/HDL (test cod e = 2238) (NOTE) RATIO COMPREHENSIVE METABOLIC [id number] 00:00:00* Test Item Value Reference Range Interpretation Comme nts GLUCOSE (test code = 2217) 127 MG/DL BUN (test code = 2208) 7 MG/DL CREATININE (test code = 2214) 0.53 MG/DL eGFR AMER. (test cod e = 11283) 132 ML/MIN/1.73 eGFR NON- AMER. (test code = 54175) 114 ML/MIN/1.73 CALC BUN/CREAT (test code = [...] (test code = 2219) 12 U/L LIPID [id number] 00:00:00* Test Item Value Reference Range Interpretation Comme nts CHOLESTEROL (test code = 2210) 346 MG/DL TRIGLYCERIDES (test code = 2232) 1167 MG/DL HDL CHOLESTEROL (test code = 2220) 37 MG/DL CALC LDL CHOL (test code = 2237) (NOTE) MG/DL RISK RATIO LDL/HDL (test cod e = 2238) (NOTE) RATIO COMPREHENSIVE METABOLIC [id number] 00:00:00* Test Item Value Reference Range Interpretation Comme nts GLUCOSE (test code = 2217) 127 MG/DL BUN (test code = 2208) 7 MG/DL CREATININE (test code = 2214) 0.53 MG/DL eGFR AMER. (test cod e = 45432) 132 ML/MIN/1.73 eGFR NON- AMER. (test code = 69823) 114 ML/MIN/1.73 CALC BUN/CREAT (test code = [...] (test code = 2219) 12 U/L LIPID [id number] 00:00:00* Test Item Value Reference Range Interpretation Comme nts CHOLESTEROL (test code = 2210) 346 MG/DL TRIGLYCERIDES (test code = 2232) 1167 MG/DL HDL CHOLESTEROL (test code = 2220) 37 MG/DL CALC LDL CHOL (test code = 2237) (NOTE) MG/DL RISK RATIO LDL/HDL (test cod e = 2238) (NOTE) RATIO COMPREHENSIVE METABOLIC [id number] 00:00:00* Test Item Value Reference Range Interpretation Comme nts GLUCOSE (test code = 2217) 127 MG/DL BUN (test code = 2208) 7 MG/DL CREATININE (test code = 2214) 0.53 MG/DL eGFR AMER. (test cod e = 56621) 132 ML/MIN/1.73 eGFR NON- AMER. (test code = 29367) 114 ML/MIN/1.73 CALC BUN/CREAT (test code = [...] (test code = 2219) 12 U/L HEMOGLOBIN [id number] 00:00:00* Test Item Value Reference Range Interpretation Comme nts HEMOGLOBIN A1c (test code = 22979) 7.8 % HEMOGLOBIN [id number] 00:00:00* Test Item Value Reference Range Interpretation Comme nts HEMOGLOBIN A1c (test code = 56999) 7.8 % HEMOGLOBIN [id number] 00:00:00* Test Item Value Reference Range Interpretation Comme nts HEMOGLOBIN A1c (test code = 72155) 7.8 % CBC W/AUTO [id number] 00:00:00* Test Item Value Reference Range Interpretation [...] (test code = 1015) 270 K/UL HEMOGLOBIN [id number] 00:00:00* Test Item Value Reference Range Interpretation Comme nts HEMOGLOBIN A1c (test code = 53250) 8.8 % COMPREHENSIVE METABOLIC [id number] 00:00:00* Test Item Value Reference Range Interpretation Comme nts GLUCOSE (test code = 2217) 236 MG/DL BUN (test code = 2208) 9 MG/DL CREATININE (test code = 2214) 0.47 MG/DL eGFR AMER. (test cod e = 00906) 137 ML/MIN/1.73 eGFR NON- AMER. (test code = 28123) 118 ML/MIN/1.73 CALC BUN/CREAT (test code = [...] ALT (test code = 2219) <5 U/L [id number] 00:00:00* Test Item Value Reference Range Interpretation Comme nts TSH, THIRD GENERATION (test code = 2821) 1.060 UIU/ML MICROALBUMIN/CREATININE, RANDOM AND [id number] 00:00:00* Test Item Value Reference Range Interpretation Comme nts CREATININE, URINE, CONC. (te st code = 2072) 83.5 MG/DL ALBUMIN, URINE, RANDOM (test code = 72969) 3.0 MG/DL CALC ALBUMIN/CREAT, RND (monique t code = 08300) 36 MG/G VITAMIN D, 25 [id number] 00:00:00* Test Item Value Reference Range Interpretation Comme nts VITAMIN D, 25 OH (test code = 4958) 12 NG/ML CBC W/AUTO [id number] 00:00:00* Test Item Value Reference Range Interpretation [...] (test code = 1015) 270 K/UL HEMOGLOBIN [id number] 00:00:00* Test Item Value Reference Range Interpretation Comme nts HEMOGLOBIN A1c (test code = 59758) 8.8 % COMPREHENSIVE METABOLIC [id number] 00:00:00* Test Item Value Reference Range Interpretation Comme nts GLUCOSE (test code = 2217) 236 MG/DL BUN (test code = 2208) 9 MG/DL CREATININE (test code = 2214) 0.47 MG/DL eGFR AMER. (test cod e = 53336) 137 ML/MIN/1.73 eGFR NON- AMER. (test code = 39236) 118 ML/MIN/1.73 CALC BUN/CREAT (test code = [...] 1.7 RATIO BILIRUBIN, TOTAL (test code = 7) <0.2 MG/DL ALKALINE PHOSPHATASE (test code = 4) 77 U/L AST (test code = 2218) 26 U/L ALT (test code = 2219) <5 U/L [id number] 00:00:00* Test Item Value Reference Range Interpretation Comme [facility] TSH, THIRD GENERATION (test code = 2821) 1.060 UIU/ML MICROALBUMIN/CREATININE, RANDOM AND [id number] 00:00:00* Test Item Value Reference Range Interpretation Comme [facility] CREATININE, URINE, CONC. (te st code = 2072) 83.5 MG/DL ALBUMIN, URINE, RANDOM (test code = 25316) 3.0 MG/DL CALC ALBUMIN/CREAT, RND (monique t code = 37622) 36 MG/G VITAMIN D, 25 [id number] 00:00:00* Test Item Value Reference Range Interpretation Comme [facility] VITAMIN D, 25 OH (test code = 4958) 12 NG/ML CBC W/AUTO [id number] 00:00:00* Test Item Value Reference Range Interpretation Comme [facility] WBC (test code = 1001) 8.7 K/UL [...] (test code = 1015) 270 K/UL HEMOGLOBIN [id number] 00:00:00* Test Item Value Reference Range Interpretation Comme nts HEMOGLOBIN A1c (test code = 91156) 8.8 % COMPREHENSIVE METABOLIC [id number] 00:00:00* Test Item Value Reference Range Interpretation Comme nts GLUCOSE (test code = 2217) 236 MG/DL BUN (test code = 2208) 9 MG/DL CREATININE (test code = 2214) 0.47 MG/DL eGFR AMER. (test cod e = 18303) 137 ML/MIN/1.73 eGFR NON- AMER. (test code = 18483) 118 ML/MIN/1.73 CALC BUN/CREAT (test code = [...] ALT (test code = 2219) <5 U/L [id number] 00:00:00* Test Item Value Reference Range Interpretation Comme [facility] TSH, THIRD GENERATION (test code = 2821) 1.060 UIU/ML MICROALBUMIN/CREATININE, RANDOM AND [id number] 00:00:00* Test Item Value Reference Range Interpretation Comme nts CREATININE, URINE, CONC. (te st code = 2072) 83.5 MG/DL ALBUMIN, URINE, RANDOM (test code = 96802) 3.0 MG/DL CALC ALBUMIN/CREAT, RND (monique t code = 28586) 36 MG/G VITAMIN D, 25 [id number] 00:00:00* Test Item Value Reference Range Interpretation Comme nts VITAMIN D, 25 OH (test code = 4958) 12 NG/ML SARS-CoV-2 (COVID-19) by RT-PCR (HIGH RISK)2020-03-24 00:00:00* Test Item Value Reference Range Interpretation Comme nts SARS-CoV-2 INTERPRETATION (t est code = 32528) NEGATIVE SOURCE (test code = 49871) NOT SPECIFIED SARS-CoV-2 (COVID-19) by RT-PCR (HIGH RISK)2020-03-24 00:00:00* Test Item Value Reference Range Interpretation Comme nts SARS-CoV-2 INTERPRETATION (t est code = 75140) NEGATIVE SOURCE (test code = 81294) NOT SPECIFIED SARS-CoV-2 (COVID-19) by RT-PCR (HIGH RISK)2020-03-24 00:00:00* Test Item Value Reference Range Interpretation Comme nts SARS-CoV-2 INTERPRETATION (t est code = 34344) NEGATIVE SOURCE (test code = 64566) NOT SPECIFIED LIPID [id number] 00:00:00* Test Item Value Reference Range Interpretation Comme nts CHOLESTEROL (test code = 2210) 235 MG/DL TRIGLYCERIDES (test code = 2232) 420 MG/DL HDL CHOLESTEROL (test code = 2220) 42 MG/DL CALC LDL CHOL (test code = 2237) (NOTE) MG/DL RISK RATIO LDL/HDL (test cod e = 2238) (NOTE) RATIO LIPID [id number] 00:00:00* Test Item Value Reference Range Interpretation Comme nts CHOLESTEROL (test code = 2210) 235 MG/DL TRIGLYCERIDES (test code = 2232) 420 MG/DL HDL CHOLESTEROL (test code = 2220) 42 MG/DL CALC LDL CHOL (test code = 2237) (NOTE) MG/DL RISK RATIO LDL/HDL (test cod e = 2238) (NOTE) RATIO LIPID [id number] 00:00:00* Test Item Value Reference Range Interpretation Comme nts CHOLESTEROL (test code = 2210) 235 MG/DL TRIGLYCERIDES (test code = 2232) 420 MG/DL HDL CHOLESTEROL (test code = 2220) 42 MG/DL CALC LDL CHOL (test code = 2237) (NOTE) MG/DL RISK RATIO LDL/HDL (test cod e = 2238) (NOTE) RATIO LIPID [id number] 00:00:00* Test Item Value Reference Range Interpretation Comme nts CHOLESTEROL (test code = 2210) 500 MG/DL TRIGLYCERIDES (test code = 2232) 2793 MG/DL HDL CHOLESTEROL (test code = 2220) 25 MG/DL CALC LDL CHOL (test code = 2237) (NOTE) MG/DL RISK RATIO LDL/HDL (test cod e = 2238) (NOTE) RATIO COMPREHENSIVE METABOLIC [id number] 00:00:00* Test Item Value Reference Range Interpretation Comme nts GLUCOSE (test code = 2217) 287 MG/DL BUN (test code = 2208) 7 MG/DL CREATININE (test code = 2214) 0.57 MG/DL eGFR AMER. (test cod e = 27683) 129 ML/MIN/1.73 eGFR NON- AMER. (test code = 48081) 111 ML/MIN/1.73 CALC BUN/CREAT (test code = [...] (test code = 2219) <5 U/L HEMOGLOBIN [id number] 00:00:00* Test Item Value Reference Range Interpretation Comme nts HEMOGLOBIN A1c (test code = 75178) 9.2 % LIPID [id number] 00:00:00* Test Item Value Reference Range Interpretation Comme nts CHOLESTEROL (test code = 2210) 500 MG/DL TRIGLYCERIDES (test code = 2232) 2793 MG/DL HDL CHOLESTEROL (test code = 2220) 25 MG/DL CALC LDL CHOL (test code = 2237) (NOTE) MG/DL RISK RATIO LDL/HDL (test cod e = 2238) (NOTE) RATIO COMPREHENSIVE METABOLIC [id number] 00:00:00* Test Item Value Reference Range Interpretation Comme nts GLUCOSE (test code = 2217) 287 MG/DL BUN (test code = 2208) 7 MG/DL CREATININE (test code = 2214) 0.57 MG/DL eGFR AMER. (test cod e = 74368) 129 ML/MIN/1.73 eGFR NON- AMER. (test code = 26782) 111 ML/MIN/1.73 CALC BUN/CREAT (test code = [...] (test code = 2219) <5 U/L HEMOGLOBIN [id number] 00:00:00* Test Item Value Reference Range Interpretation Comme nts HEMOGLOBIN A1c (test code = 33877) 9.2 % LIPID [id number] 00:00:00* Test Item Value Reference Range Interpretation Comme nts CHOLESTEROL (test code = 2210) 500 MG/DL TRIGLYCERIDES (test code = 2232) 2793 MG/DL HDL CHOLESTEROL (test code = 2220) 25 MG/DL CALC LDL CHOL (test code = 2237) (NOTE) MG/DL RISK RATIO LDL/HDL (test cod e = 2238) (NOTE) RATIO COMPREHENSIVE METABOLIC [id number] 00:00:00* Test Item Value Reference Range Interpretation Comme nts GLUCOSE (test code = 2217) 287 MG/DL BUN (test code = 2208) 7 MG/DL CREATININE (test code = 2214) 0.57 MG/DL eGFR AMER. (test cod e = 66212) 129 ML/MIN/1.73 eGFR NON- AMER. (test code = 53024) 111 ML/MIN/1.73 CALC BUN/CREAT (test code = [...] (test code = 2219) <5 U/L HEMOGLOBIN [id number] 00:00:00* Test Item Value Reference Range Interpretation Comme nts HEMOGLOBIN A1c (test code = 14412) 9.2 % SARS-CoV-2 (COVID-19) by RT-PCR (HIGH RISK)2019-12-14 00:00:00* Test Item Value Reference Range Interpretation Comme nts SARS-CoV-2 INTERPRETATION (test code = 08303) Positive SOURCE (test code = 84531) NASOPHARYNGEA L_SWAB _IN_VTM__UTM SARS-CoV-2 (COVID-19) by RT-PCR (HIGH RISK)2019-12-14 00:00:00* Test Item Value Reference Range Interpretation Comme nts SARS-CoV-2 INTERPRETATION (test code = 09385) Positive SOURCE (test code = 66761) NASOPHARYNGEA L_SWAB _IN_VTM__UTM SARS-CoV-2 (COVID-19) by RT-PCR (HIGH RISK)2019-12-14 00:00:00* Test Item Value Reference Range Interpretation Comme nts SARS-CoV-2 INTERPRETATION (test code = 10638) Positive SOURCE (test code = 32509) NASOPHARYNGEA L_SWAB _IN_VTM__UTM SARS-CoV-2 (COVID-19) by RT-PCR (HIGH RISK)2019-12-01 00:00:00* Test Item Value Reference Range Interpretation Comme nts SARS-CoV-2 INTERPRETATION (test code = 83350) Positive SOURCE (test code = 08297) Nasal_Swab_in _VTM__ UTM SARS-CoV-2 (COVID-19) by RT-PCR (HIGH RISK)2019-12-01 00:00:00* Test Item Value Reference Range Interpretation Comme nts SARS-CoV-2 INTERPRETATION (test code = 04609) Positive SOURCE (test code = 44978) Nasal_Swab_in _VTM__ UTM SARS-CoV-2 (COVID-19) by RT-PCR (HIGH RISK)2019-12-01 00:00:00* Test Item Value Reference Range Interpretation Comme nts SARS-CoV-2 INTERPRETATION (test code = 61676) Positive SOURCE (test code = 51591) Nasal_Swab_in _VTM__ UTM SARS-CoV-2 (COVID-19) by RT-PCR (HIGH RISK)2019-09-01 00:00:00* Test Item Value Reference Range Interpretation Comme nts SARS-CoV-2 INTERPRETATION (t est code = 55607) NEGATIVE SOURCE (test code = 37252) NOT SPECIFIED SARS-CoV-2 (COVID-19) by RT-PCR (HIGH RISK)2019-09-01 00:00:00* Test Item Value Reference Range Interpretation Comme nts SARS-CoV-2 INTERPRETATION (t est code = 11663) NEGATIVE SOURCE (test code = 17463) NOT SPECIFIED SARS-CoV-2 (COVID-19) by RT-PCR (HIGH RISK)2019-09-01 00:00:00* Test Item Value Reference Range Interpretation Comme nts SARS-CoV-2 INTERPRETATION (t est code = 22549) NEGATIVE SOURCE (test code = 65014) NOT SPECIFIED HEMOGLOBIN [id number] 00:00:00* Test Item Value Reference Range Interpretation Comme nts HEMOGLOBIN A1c (test code = 17929) 8.1 % LIPID [id number] 00:00:00* Test Item Value Reference Range Interpretation Comme nts CHOLESTEROL (test code = 2210) 336 MG/DL TRIGLYCERIDES (test code = 2232) 1678 MG/DL HDL CHOLESTEROL (test code = 2220) 28 MG/DL CALC LDL CHOL (test code = 2237) (NOTE) MG/DL RISK RATIO LDL/HDL (test cod e = 2238) (NOTE) RATIO COMPREHENSIVE METABOLIC [id number] 00:00:00* Test Item Value Reference Range Interpretation Comme nts GLUCOSE (test code = 2217) 175 MG/DL BUN (test code = 2208) 8 MG/DL CREATININE (test code = 2214) 0.53 MG/DL eGFR AMER. (test cod e = 82224) 133 ML/MIN/1.73 eGFR NON- AMER. (test code = 83646) 115 ML/MIN/1.73 CALC BUN/CREAT (test code = [...] (test code = 2219) 25 U/L HEMOGLOBIN [id number] 00:00:00* Test Item Value Reference Range Interpretation Comme nts HEMOGLOBIN A1c (test code = 42299) 8.1 % LIPID [id number] 00:00:00* Test Item Value Reference Range Interpretation Comme nts CHOLESTEROL (test code = 2210) 336 MG/DL TRIGLYCERIDES (test code = 2232) 1678 MG/DL HDL CHOLESTEROL (test code = 2220) 28 MG/DL CALC LDL CHOL (test code = 2237) (NOTE) MG/DL RISK RATIO LDL/HDL (test cod e = 2238) (NOTE) RATIO COMPREHENSIVE METABOLIC [id number] 00:00:00* Test Item Value Reference Range Interpretation Comme nts GLUCOSE (test code = 2217) 175 MG/DL BUN (test code = 2208) 8 MG/DL CREATININE (test code = 2214) 0.53 MG/DL eGFR AMER. (test cod e = 20005) 133 ML/MIN/1.73 eGFR NON- AMER. (test code = 07387) 115 ML/MIN/1.73 CALC BUN/CREAT (test code = [...] (test code = 2219) 25 U/L HEMOGLOBIN [id number] 00:00:00* Test Item Value Reference Range Interpretation Comme nts HEMOGLOBIN A1c (test code = 68022) 8.1 % LIPID [id number] 00:00:00* Test Item Value Reference Range Interpretation Comme nts CHOLESTEROL (test code = 2210) 336 MG/DL TRIGLYCERIDES (test code = 2232) 1678 MG/DL HDL CHOLESTEROL (test code = 2220) 28 MG/DL CALC LDL CHOL (test code = 2237) (NOTE) MG/DL RISK RATIO LDL/HDL (test cod e = 2238) (NOTE) RATIO COMPREHENSIVE METABOLIC [id number] 00:00:00* Test Item Value Reference Range Interpretation Comme nts GLUCOSE (test code = 2217) 175 MG/DL BUN (test code = 2208) 8 MG/DL CREATININE (test code = 2214) 0.53 MG/DL eGFR AMER. (test cod e = 52638) 133 ML/MIN/1.73 eGFR NON- AMER. (test code = 27194) 115 ML/MIN/1.73 CALC BUN/CREAT (test code = [...] code = 2219) 25 U/L COMPREHENSIVE METABOLIC [id number] 00:00:00* Test Item Value Reference Range Interpretation Comme nts GLUCOSE (test code = 2217) 286 MG/DL BUN (test code = 2208) 9 MG/DL CREATININE (test code = 2214) 0.56 MG/DL eGFR AMER. (test cod e = 92157) 131 ML/MIN/1.73 eGFR NON- AMER. (test code = 82637) 113 ML/MIN/1.73 CALC BUN/CREAT (test code = [...] code = 2219) <5 U/L COMPREHENSIVE METABOLIC [id number] 00:00:00* Test Item Value Reference Range Interpretation Comme nts GLUCOSE (test code = 2217) 286 MG/DL BUN (test code = 2208) 9 MG/DL CREATININE (test code = 2214) 0.56 MG/DL eGFR AMER. (test cod e = 74313) 131 ML/MIN/1.73 eGFR NON- AMER. (test code = 89792) 113 ML/MIN/1.73 CALC BUN/CREAT (test code = [...] code = 2219) <5 U/L COMPREHENSIVE METABOLIC [id number] 00:00:00* Test Item Value Reference Range Interpretation Comme nts GLUCOSE (test code = 2217) 286 MG/DL BUN (test code = 2208) 9 MG/DL CREATININE (test code = 2214) 0.56 MG/DL eGFR AMER. (test cod e = 69770) 131 ML/MIN/1.73 eGFR NON- AMER. (test code = 85999) 113 ML/MIN/1.73 CALC BUN/CREAT (test code = [...] = 2219) <5 U/L MICROALBUMIN/CREATININE, RANDOM AND [id number] 00:00:00* Test Item Value Reference Range Interpretation Comme nts CREATININE, URINE, CONC. (te st code = 207) 112.4 MG/DL ALBUMIN, URINE, RANDOM (test code = 36907) 9.2 MG/DL CALC ALBUMIN/CREAT, RND (monique t code = 73158) 82 MG/G HEMOGLOBIN [id number] 00:00:00* Test Item Value Reference Range Interpretation Comme nts HEMOGLOBIN A1c (test code = 98403) 7.5 % MICROALBUMIN/CREATININE, RANDOM AND [id number] 00:00:00* Test Item Value Reference Range Interpretation Comme nts CREATININE, URINE, CONC. (te st code = 2071) 112.4 MG/DL ALBUMIN, URINE, RANDOM (test code = 54638) 9.2 MG/DL CALC ALBUMIN/CREAT, RND (monique t code = 67926) 82 MG/G HEMOGLOBIN [id number] 00:00:00* Test Item Value Reference Range Interpretation Comme nts HEMOGLOBIN A1c (test code = 57594) 7.5 % MICROALBUMIN/CREATININE, RANDOM AND [id number] 00:00:00* Test Item Value Reference Range Interpretation Comme nts CREATININE, URINE, CONC. (te st code = 207) 112.4 MG/DL ALBUMIN, URINE, RANDOM (test code = 13130) 9.2 MG/DL CALC ALBUMIN/CREAT, RND (monique t code = 46004) 82 MG/G HEMOGLOBIN [id number] 00:00:00* Test Item Value Reference Range Interpretation Comme nts HEMOGLOBIN A1c (test code = 03775) 7.5 % HEMOGLOBIN [id number] 00:00:00* Test Item Value Reference Range Interpretation Comme nts HEMOGLOBIN A1c (test code = 34376) 8.2 % MICROALBUMIN/CREATININE, RANDOM AND [id number] 00:00:00* Test Item Value Reference Range Interpretation Comme nts CREATININE, URINE, CONC. (te st code = 2072) 95.3 MG/DL ALBUMIN, URINE, RANDOM (test code = 96456) 15.6 MG/DL CALC ALBUMIN/CREAT, RND (monique t code = 34955) 164 MG/G HEMOGLOBIN [id number] 00:00:00* Test Item Value Reference Range Interpretation Comme nts HEMOGLOBIN A1c (test code = 53385) 8.2 % MICROALBUMIN/CREATININE, RANDOM AND [id number] 00:00:00* Test Item Value Reference Range Interpretation Comme nts CREATININE, URINE, CONC. (te st code = 2072) 95.3 MG/DL ALBUMIN, URINE, RANDOM (test code = 25437) 15.6 MG/DL CALC ALBUMIN/CREAT, RND (monique t code = 74470) 164 MG/G HEMOGLOBIN [id number] 00:00:00* Test Item Value Reference Range Interpretation Comme nts HEMOGLOBIN A1c (test code = 16840) 8.2 % MICROALBUMIN/CREATININE, RANDOM AND [id number] 00:00:00* Test Item Value Reference Range Interpretation Comme nts CREATININE, URINE, CONC. (te st code = 2072) 95.3 MG/DL ALBUMIN, URINE, RANDOM (test code = 05656) 15.6 MG/DL CALC ALBUMIN/CREAT, RND (monique t code = 33312) 164 MG/G LIPID [id number] 00:00:00* Test Item Value Reference Range Interpretation Comme nts CHOLESTEROL (test code = 2210) 242 MG/DL TRIGLYCERIDES (test code = 2232) 721 MG/DL HDL CHOLESTEROL (test code = 2220) 41 MG/DL CALC LDL CHOL (test code = 2237) NOTE MG/DL RISK RATIO LDL/HDL (test cod e = 2238) (NOTE) RATIO HEMOGLOBIN [id number] 00:00:00* Test Item Value Reference Range Interpretation Comme nts HEMOGLOBIN A1c (test code = 81558) 7.0 % COMPREHENSIVE METABOLIC [id number] 00:00:00* Test Item Value Reference Range Interpretation Comme nts GLUCOSE (test code = 2217) 188 MG/DL BUN (test code = 2208) 8 MG/DL CREATININE (test code = 2214) 0.47 MG/DL eGFR AMER. (test cod e = 02763) 139 ML/MIN/1.73 eGFR NON- AMER. (test code = 39604) 120 ML/MIN/1.73 CALC BUN/CREAT (test code = [...] (test code = 2219) 11 U/L LIPID [id number] 00:00:00* Test Item Value Reference Range Interpretation Comme nts CHOLESTEROL (test code = 2210) 242 MG/DL TRIGLYCERIDES (test code = 2232) 721 MG/DL HDL CHOLESTEROL (test code = 2220) 41 MG/DL CALC LDL CHOL (test code = 2237) NOTE MG/DL RISK RATIO LDL/HDL (test cod e = 2238) (NOTE) RATIO HEMOGLOBIN [id number] 00:00:00* Test Item Value Reference Range Interpretation Comme nts HEMOGLOBIN A1c (test code = 07064) 7.0 % COMPREHENSIVE METABOLIC [id number] 00:00:00* Test Item Value Reference Range Interpretation Comme nts GLUCOSE (test code = 2217) 188 MG/DL BUN (test code = 2208) 8 MG/DL CREATININE (test code = 2214) 0.47 MG/DL eGFR AMER. (test cod e = 21493) 139 ML/MIN/1.73 eGFR NON- AMER. (test code = 65848) 120 ML/MIN/1.73 CALC BUN/CREAT (test code = [...] (test code = 2219) 11 U/L LIPID [id number] 00:00:00* Test Item Value Reference Range Interpretation Comme nts CHOLESTEROL (test code = 2210) 242 MG/DL TRIGLYCERIDES (test code = 2232) 721 MG/DL HDL CHOLESTEROL (test code = 2220) 41 MG/DL CALC LDL CHOL (test code = 2237) NOTE MG/DL RISK RATIO LDL/HDL (test cod e = 2238) (NOTE) RATIO HEMOGLOBIN [id number] 00:00:00* Test Item Value Reference Range Interpretation Comme nts HEMOGLOBIN A1c (test code = 51958) 7.0 % COMPREHENSIVE METABOLIC [id number] 00:00:00* Test Item Value Reference Range Interpretation Comme nts GLUCOSE (test code = 2217) 188 MG/DL BUN (test code = 2208) 8 MG/DL CREATININE (test code = 2214) 0.47 MG/DL eGFR AMER. (test cod e = 07193) 139 ML/MIN/1.73 eGFR NON- AMER. (test code = 47782) 120 ML/MIN/1.73 CALC BUN/CREAT (test code = 2235) 17 RATIO SODIUM (test code = 2231) 137 MEQ/L POTASSIUM (test code = 2228) 4.6 MEQ/L CHLORIDE (test code = 2215) 101 MEQ/L CARBON DIOXIDE (test code = 2205) 24 MEQ/L CALCIUM (test code = 2209) [...] (test code = 2219) 11 U/L LIPID [id number] 00:00:00* Test Item Value Reference Range Interpretation Comme nts CHOLESTEROL (test code = 2210) 182 MG/DL TRIGLYCERIDES (test code = 2232) 489 MG/DL HDL CHOLESTEROL (test code = 2220) 43 MG/DL CALC LDL CHOL (test code = 2237) NOTE MG/DL RISK RATIO LDL/HDL (test cod e = 2238) (NOTE) RATIO HEMOGLOBIN [id number] 00:00:00* Test Item Value Reference Range Interpretation Comme nts HEMOGLOBIN A1c (test code = 76577) 6.1 % COMPREHENSIVE METABOLIC [id number] 00:00:00* Test Item Value Reference Range Interpretation Comme nts GLUCOSE (test code = 2217) 169 MG/DL BUN (test code = 8) 7 MG/DL CREATININE (test code = 2214) 0.51 MG/DL eGFR AMER. (test cod e = 90040) 136 ML/MIN/1.73 eGFR NON- AMER. (test code = 49396) 118 ML/MIN/1.73 CALC BUN/CREAT (test code = 2235) 14 RATIO SODIUM (test code = 2231) 139 MEQ/L POTASSIUM (test code = 2228) 4.2 MEQ/L CHLORIDE (test code = 2215) 99 MEQ/L CARBON DIOXIDE (test code = 6) 27 MEQ/L CALCIUM (test code = 2209) [...] (test code = 2219) 10 U/L LIPID [id number] 00:00:00* Test Item Value Reference Range Interpretation Comme nts CHOLESTEROL (test code = 2210) 182 MG/DL TRIGLYCERIDES (test code = 2232) 489 MG/DL HDL CHOLESTEROL (test code = 2220) 43 MG/DL CALC LDL CHOL (test code = 2237) NOTE MG/DL RISK RATIO LDL/HDL (test cod e = 2238) (NOTE) RATIO HEMOGLOBIN [id number] 00:00:00* Test Item Value Reference Range Interpretation Comme nts HEMOGLOBIN A1c (test code = 04065) 6.1 % COMPREHENSIVE METABOLIC [id number] 00:00:00* Test Item Value Reference Range Interpretation Comme nts GLUCOSE (test code = 2217) 169 MG/DL BUN (test code = 2208) 7 MG/DL CREATININE (test code = 2214) 0.51 MG/DL eGFR AMER. (test cod e = 95941) 136 ML/MIN/1.73 eGFR NON- AMER. (test code = 25322) 118 ML/MIN/1.73 CALC BUN/CREAT (test code = [...] (test code = 2219) 10 U/L LIPID [id number] 00:00:00* Test Item Value Reference Range Interpretation Comme nts CHOLESTEROL (test code = 2210) 182 MG/DL TRIGLYCERIDES (test code = 2232) 489 MG/DL HDL CHOLESTEROL (test code = 2220) 43 MG/DL CALC LDL CHOL (test code = 2237) NOTE MG/DL RISK RATIO LDL/HDL (test cod e = 2238) (NOTE) RATIO HEMOGLOBIN [id number] 00:00:00* Test Item Value Reference Range Interpretation Comme nts HEMOGLOBIN A1c (test code = 29963) 6.1 % COMPREHENSIVE METABOLIC [id number] 00:00:00* Test Item Value Reference Range Interpretation Comme nts GLUCOSE (test code = 2217) 169 MG/DL BUN (test code = 2208) 7 MG/DL CREATININE (test code = 2214) 0.51 MG/DL eGFR AMER. (test cod e = 00990) 136 ML/MIN/1.73 eGFR NON- AMER. (test code = 60088) 118 ML/MIN/1.73 CALC BUN/CREAT (test code = [...] = 2219) 10 U/L MICROALBUMIN/CREATININE, RANDOM AND [id number] 00:00:00* Test Item Value Reference Range Interpretation Comme nts CREATININE, URINE, CONC. (te st code = 2072) 86.9 MG/DL MICROALBUMIN, RANDOM (test c ode = 37064) 3.2 MG/DL CALC MICROALB/CREAT RND (monique t code = 10135) 37 MG/G MICROALBUMIN/CREATININE, RANDOM AND [id number] 00:00:00* Test Item Value Reference Range Interpretation Comme nts CREATININE, URINE, CONC. (te st code = 2071) 86.9 MG/DL MICROALBUMIN, RANDOM (test c ode = 57677) 3.2 MG/DL CALC MICROALB/CREAT RND (monique t code = 84191) 37 MG/G MICROALBUMIN/CREATININE, RANDOM AND [id number] 00:00:00* Test Item Value Reference Range Interpretation Comme nts CREATININE, URINE, CONC. (te st code = 2071) 86.9 MG/DL MICROALBUMIN, RANDOM (test c ode = 04600) 3.2 MG/DL CALC MICROALB/CREAT RND (monique t code = 82853) 37 MG/G MICROALBUMIN/CREATININE, RANDOM AND [id number] 00:00:00* Test Item Value Reference Range Interpretation Comme nts CREATININE, URINE, CONC. (test code = 2071) TEST NOT PERFORMED MG/DL MICROALBUMIN, RANDOM (test code = 76341) TEST NOT PERFORMED MG/DL CALC MICROALB/CREAT RND (test code = 67705) TEST NOT PERFORMED MG/G MICROALBUMIN/CREATININE, RANDOM AND [id number] 00:00:00* Test Item Value Reference Range Interpretation Comme nts CREATININE, URINE, CONC. (test code = 207) TEST NOT PERFORMED MG/DL MICROALBUMIN, RANDOM (test code = 93688) TEST NOT PERFORMED MG/DL CALC MICROALB/CREAT RND (test code = 41620) TEST NOT PERFORMED MG/G MICROALBUMIN/CREATININE, RANDOM AND [id number] 00:00:00* Test Item Value Reference Range Interpretation Comme nts CREATININE, URINE, CONC. (test code = 2071) TEST NOT PERFORMED MG/DL MICROALBUMIN, RANDOM (test code = 57003) TEST NOT PERFORMED MG/DL CALC MICROALB/CREAT RND (test code = 65926) TEST NOT PERFORMED MG/G HEMOGLOBIN [id number] 00:00:00* Test Item Value Reference Range Interpretation Comme nts HEMOGLOBIN A1c (test code = 54649) 9.0 % [id number] 00:00:00* Test Item Value Reference Range Interpretation Comme nts TSH (test code = 2821) 0.853 UIU/ML COMPREHENSIVE METABOLIC [id number] 00:00:00* Test Item Value Reference Range Interpretation Comme nts GLUCOSE (test code = 2217) 298 MG/DL BUN (test code = 2208) 8 MG/DL CREATININE (test code = 2214) 0.39 MG/DL eGFR AMER. (test cod e = 11007) 149 ML/MIN/1.73 eGFR NON- AMER. (test code = 87730) 129 ML/MIN/1.73 CALC BUN/CREAT (test code = [...] (test code = 2219) 8 U/L LIPID [id number] 00:00:00* Test Item Value Reference Range Interpretation Comme nts CHOLESTEROL (test code = 2210) 233 MG/DL TRIGLYCERIDES (test code = 2232) 775 MG/DL HDL CHOLESTEROL (test code = 2220) 39 MG/DL CALC LDL CHOL (test code = 2237) NOTE MG/DL RISK RATIO LDL/HDL (test cod e = 2238) (NOTE) RATIO CBC W/AUTO [id number] 00:00:00* Test Item Value Reference Range Interpretation [...] (test code = 1015) 317 K/UL HEMOGLOBIN [id number] 00:00:00* Test Item Value Reference Range Interpretation Comme nts HEMOGLOBIN A1c (test code = 31426) 9.0 % [id number] 00:00:00* Test Item Value Reference Range Interpretation Comme nts TSH (test code = 2821) 0.853 UIU/ML COMPREHENSIVE METABOLIC [id number] 00:00:00* Test Item Value Reference Range Interpretation Comme nts GLUCOSE (test code = 2217) 298 MG/DL BUN (test code = 2208) 8 MG/DL CREATININE (test code = 2214) 0.39 MG/DL eGFR AMER. (test cod e = 29089) 149 ML/MIN/1.73 eGFR NON- AMER. (test code = 71681) 129 ML/MIN/1.73 CALC BUN/CREAT (test code = [...] (test code = 2219) 8 U/L LIPID [id number] 00:00:00* Test Item Value Reference Range Interpretation Comme nts CHOLESTEROL (test code = 2210) 233 MG/DL TRIGLYCERIDES (test code = 2232) 775 MG/DL HDL CHOLESTEROL (test code = 2220) 39 MG/DL CALC LDL CHOL (test code = 2237) NOTE MG/DL RISK RATIO LDL/HDL (test cod e = 2238) (NOTE) RATIO CBC W/AUTO [id number] 00:00:00* Test Item Value Reference Range Interpretation [...] (test code = 1015) 317 K/UL HEMOGLOBIN [id number] 00:00:00* Test Item Value Reference Range Interpretation Comme nts HEMOGLOBIN A1c (test code = 76760) 9.0 % [id number] 00:00:00* Test Item Value Reference Range Interpretation Comme nts TSH (test code = 2821) 0.853 UIU/ML COMPREHENSIVE METABOLIC [id number] 00:00:00* Test Item Value Reference Range Interpretation Comme nts GLUCOSE (test code = 2217) 298 MG/DL BUN (test code = 2208) 8 MG/DL CREATININE (test code = 2214) 0.39 MG/DL eGFR AMER. (test cod e = 11343) 149 ML/MIN/1.73 eGFR NON- AMER. (test code = 24211) 129 ML/MIN/1.73 CALC BUN/CREAT (test code = [...] (test code = 2219) 8 U/L LIPID [id number] 00:00:00* Test Item Value Reference Range Interpretation Comme nts CHOLESTEROL (test code = 2210) 233 MG/DL TRIGLYCERIDES (test code = 2232) 775 MG/DL HDL CHOLESTEROL (test code = 2220) 39 MG/DL CALC LDL CHOL (test code = 2237) NOTE MG/DL RISK RATIO LDL/HDL (test cod e = 2238) (NOTE) RATIO CBC W/AUTO [id number] 00:00:00* Test Item Value Reference Range Interpretation [...] code = 1015) 317 K/UL CBC W/AUTO [id number] 00:00:00* Test Item Value Reference Range Interpretation [...] COMMENTS (test code = 1016) (NOTE) HEMOGLOBIN [id number] 00:00:00* Test Item Value Reference Range Interpretation Comme nts HEMOGLOBIN A1c (test code = 84138) 8.3 % [id number] 00:00:00* Test Item Value Reference Range Interpretation Comme nts TSH (test code = 2821) 1.1 UIU/ML COMPREHENSIVE METABOLIC [id number] 00:00:00* Test Item Value Reference Range Interpretation Comme nts GLUCOSE (test code = 2217) 196 MG/DL BUN (test code = 2208) 8 MG/DL CREATININE (test code = 2214) 0.48 MG/DL eGFR AMER. (test cod e = 46636) 141 ML/MIN/1.73 eGFR NON- AMER. (test code = 40587) 122 ML/MIN/1.73 CALCULATED BUN/CREAT (test code = [...] (test code = 2219) 7 U/L LIPID [id number] 00:00:00* Test Item Value Reference Range Interpretation Comme nts CHOLESTEROL (test code = 2210) 289 MG/DL TRIGLYCERIDES (test code = 2232) 1092 MG/DL HDL CHOLESTEROL (test code = 2220) 41 MG/DL CALCULATED LDL CHOL (test co de = 2237) NOTE MG/DL CBC W/AUTO [id number] 00:00:00* Test Item Value Reference Range Interpretation [...] COMMENTS (test code = 1016) (NOTE) HEMOGLOBIN [id number] 00:00:00* Test Item Value Reference Range Interpretation Comme nts HEMOGLOBIN A1c (test code = 26187) 8.3 % [id number] 00:00:00* Test Item Value Reference Range Interpretation Comme nts TSH (test code = 2821) 1.1 UIU/ML COMPREHENSIVE METABOLIC [id number] 00:00:00* Test Item Value Reference Range Interpretation Comme nts GLUCOSE (test code = 2217) 196 MG/DL BUN (test code = 2208) 8 MG/DL CREATININE (test code = 2214) 0.48 MG/DL eGFR AMER. (test cod e = 45171) 141 ML/MIN/1.73 eGFR NON- AMER. (test code = 39579) 122 ML/MIN/1.73 CALCULATED BUN/CREAT (test code = [...] 0.4 MG/DL ALKALINE PHOSPHATASE (test code = 220) 67 U/L SGOT (AST) (test code = 221) 13 U/L SGPT (ALT) (test code = 221) 7 U/L LIPID [id number] 00:00:00* Test Item Value Reference Range Interpretation Comme nts CHOLESTEROL (test code = 2210) 289 MG/DL TRIGLYCERIDES (test code = 2232) 1092 MG/DL HDL CHOLESTEROL (test code = 2220) 41 MG/DL CALCULATED LDL CHOL (test co de = 2237) NOTE MG/DL CBC W/AUTO [id number] 00:00:00* Test Item Value Reference Range Interpretation [...] COMMENTS (test code = 1016) (NOTE) HEMOGLOBIN [id number] 00:00:00* Test Item Value Reference Range Interpretation Comme nts HEMOGLOBIN A1c (test code = 87270) 8.3 % [id number] 00:00:00* Test Item Value Reference Range Interpretation Comme nts TSH (test code = 2821) 1.1 UIU/ML COMPREHENSIVE METABOLIC [id number] 00:00:00* Test Item Value Reference Range Interpretation Comme nts GLUCOSE (test code = 2217) 196 MG/DL BUN (test code = 2208) 8 MG/DL CREATININE (test code = 2214) 0.48 MG/DL eGFR AMER. (test cod e = 46022) 141 ML/MIN/1.73 eGFR NON- AMER. (test code = 41628) 122 ML/MIN/1.73 CALCULATED BUN/CREAT (test code = [...] (test code = 2219) 7 U/L LIPID [id number] 00:00:00* Test Item Value Reference Range Interpretation Comme nts CHOLESTEROL (test code = 2210) 289 MG/DL TRIGLYCERIDES (test code = 2232) 1092 MG/DL HDL CHOLESTEROL (test code = 2220) 41 MG/DL CALCULATED LDL CHOL (test co de = 2237) NOTE MG/DL Notes Date/Time Note Provider Source 2023-07-29 15:30:48 Called, no answer. Lvm, sent [employer] message. Ludmila Seay MA [facility] 2023-07-29 15:12:13 Pt calling to go over usg results. Astrid Elkins [facility]
[2023-10-26] MEDS ORDERED: NA CHLORIDE 0.9% 1,000 ML ONE ×2 (13:34→14:19)
[2023-10-26] MEDS ORDERED: ONDANSETRON 4 MG/2 ML VIAL ONE (13:34)
[2023-10-26 13:46] LABS: Absolute Eosinophils 0.1 K/uL (0-0.5); Absolute Monocytes 0.4 K/uL (0.1-1.3); Absolute Neutrophil 7.2 K/uL (1.8-8.0); Basophils % 0.2 % (0-1.3); Eosinophils % 0.5 % (0-4.4); Hematocrit 42.4 % (36.0-45.0); Hemoglobin 14.2 g/dL (12.0-15.0); Lymphocytes % 20.5 % (15.3-44.8); MCH 30.7 pg (27.0-35.0); MCHC 33.6 g/dL (32.0-36.0); MCV 91.6 fL (80-100); Monocytes % 4.3 % (3.3-12.3); Neutrophils % 74.5 % (41.7-73.7); Platelets 313 thou/uL (152-406); RBC Red Blood Cell Count 4.63 M/uL (3.86-4.86); Red Cell Distribution Width 12.9 % (12.1-15.2)
[2023-10-26 14:07] LABS: ALT/SGPT 24 U/L (13-56); AST/SGOT 13 U/L (15-37); Albumin 3.5 g/dL (3.4-5.0); Alkaline Phosphatase 89 U/L (45-117); Anion Gap 10.3 mEq/L (5.0-15.0); BUN Blood Urea Nitrogen 11 mg/dL (7-18); Bicarbonate 25 mEq/L (21-32); Bilirubin Total 0.4 mg/dL (0.2-1.0); Globulin 3.4 g/dL (2.3-3.5); Glomerular Filtration Rate 108 ml/min (=/>90); Glucose Level 347 mg/dL (74-106); Magnesium 1.4 mg/dL (1.6-2.4); NT PRO-BNP 38 pg/mL (<125); Potassium 3.3 mEq/L (3.5-5.1); Protein, Total 6.9 g/dL (6.4-8.2); Sodium Level 134 mEq/L (136-145)
[2023-10-26 14:08] LABS: Specific Gravity 1.029 (1.005-1.030); Sqamous Epithelial None Seen /HPF (None Seen); Urine Bacteria None Seen /HPF (<20); Urine Bilirubin NEGATIVE (Negative); Urine Blood Negative (Negative); Urine Clarity Clear (Clear); Urine Color Light-Yellow (Yellow); Urine Crystals Unidentified Few /HPF (None Seen); Urine Culture Reflex Order NOT NEEDED; Urine Glucose 4+ (Over) (Negative); Urine Ketones TRACE (Negative); Urine Micro Reflex YN NO BILL MICROSCOPIC; Urine Nitrite NEGATIVE (Negative); Urine Protein NEGATIVE (Negative); Urine RBC <5 /HPF (None Seen); Urine Urobilinogen Normal (Normal); Urine WBC <5 /HPF (<5); Urine pH 5.5 (5.0-7.0)
[2023-10-26 14:08] LABS: Bilirubin Direct < 0.2 mg/dL (0-0.2); Bilirubin Indirect, Calculated 0.2 mg/dL (0.2-0.8)
--- NOTE | 2023-10-26 15:00 | RAD REPORT ---
EXAM DESCRIPTION: RAD - Chest Single View - 10/26/2023 2:22 pm CLINICAL HISTORY: CHEST PAIN COMPARISON: Chest Single View dated 02/21/2023; Chest Single View dated 09/28/2022; Chest Pa And Lat ( 2 Views) dated 04/14/2022; Chest Single View dated 02/20/2022 FINDINGS: Lines: None. Lungs: No evidence of edema or pneumonia. Pleural: No significant pleural effusions or pneumothorax. Cardiac: The heart size is within normal limits. Mediastinum: Within normal limits. Bones: No acute fractures. Other: None IMPRESSION: No acute cardiopulmonary disease.
--- NOTE | 2023-10-26 15:18 | ER ---
Nurse's Notes [facility] Name: Effie Crouch Age: 48 yrs Sex: Female : 1975 Arrival Date: 10/26/2023 Time: 12:53 Bed 6 Private MD: Diagnosis: Type 2 diabetes mellitus with hyperglycemia Presentation: 10/25 13:10 Chief complaint: Patient states: BLOOD GLUCOSE HIGH SINCE YESTERDAY. YESTERDAY IN 400'S db DID NOT EAT YESTERDAY DUE TO HIGH READING. TOOK METFORMIN AND NOVALIN YESTERDAY. COMPLAINS OF NAUSEA WELL. Coronavirus screen: Client denies travel out of the [place] in the last 14 days. At this time, the client does not indicate any symptoms associated with coronavirus-19. Ebola Screen: Patient negative for fever greater than or equal to 101.5 degrees Fahrenheit, and additional compatible Ebola Virus Disease symptoms Patient denies exposure to infectious person. Patient denies travel to an Ebola-affected area in the 21 days before illness onset. No symptoms or risks identified at this time. Initial Sepsis Screen: Does the patient meet any 2 criteria? HR > 90 bpm. No. Patient's initial sepsis screen is negative. Does the patient have a suspected source of infection? No. Patient's initial sepsis screen is negative. Risk Assessment: Do you want to hurt yourself or someone else? Patient reports no desire to harm self or others. Onset of symptoms was October 26, 2023. 13:10 Method Of Arrival: Ambulatory db 13:10 Acuity: MARNI 3 db Triage Assessment: 13:12 General: Appears in no apparent distress. comfortable, Behavior is calm, cooperative. db Pain: Complains of pain in head. Neuro: Level of Consciousness is awake, alert, obeys commands, Oriented to person, place, time, situation, Reports dizziness, headache. Respiratory: Airway is patent Respiratory effort is even, unlabored, Respiratory pattern is regular, symmetrical. GI: Reports nausea. Historical: - Allergies: 13:12 No Known Allergies; db - PMHx: 13:12 blood transfusion; Diabetes - NIDDM; Hypertension; Anemia; db - PSHx: 13:12 Cholecystectomy; ; hysterectomy; db - Immunization history:: Adult Immunizations unknown. - Infectious Disease History:: Denies. - Social history:: Smoking status: Patient reports the use of cigarette tobacco products, smokes one-half pack cigarettes per day. Screenin:17 [facility] ED Fall Risk Assessment (Adult) History of falling in the last 3 months, kc6 including since admission No falls in past 3 months (0 pts) Confusion or Disorientation No (0 pts) Intoxicated or Sedated No (0 pts) Impaired Gait No (0 pts) Mobility Assist Device Used No (0 pt) Altered Elimination No (0 pt) Score/Fall Risk Level 0 - 2 = Low Risk. Abuse screen: Denies threats or abuse. Denies injuries from another. Nutritional screening: No deficits noted. Tuberculosis screening: No symptoms or risk factors identified. Assessment: 13:41 General: Appears in no apparent distress. comfortable, well groomed, well developed, kc6 Behavior is calm, cooperative, appropriate for age. Neuro: Level of Consciousness is awake, alert, obeys commands, Oriented to person, place, time, situation, Appropriate for age Reports headache. Cardiovascular: Capillary refill < 3 seconds. Respiratory: Airway is patent Trachea midline Respiratory effort is even, unlabored, Respiratory pattern is regular, symmetrical. GI: Reports nausea, Patient currently denies abdominal pain, diarrhea, vomiting. : No signs and/or symptoms were reported regarding the genitourinary system. EENT: No signs and/or symptoms were reported regarding the EENT system. Derm: No signs and/or symptoms reported regarding the dermatologic system. Skin is intact, is healthy with good turgor, Skin is pink, warm \T\ dry. Musculoskeletal: No signs and/or symptoms reported regarding the musculoskeletal system. Circulation, motion, and sensation intact. Capillary refill < 3 seconds, Range of motion: intact in all extremities. 14:46 Reassessment: Patient appears in no apparent distress at this time. No changes from kc6 previously documented assessment. Patient and/or family updated on plan of care and expected duration. Pain level reassessed. Patient is alert, oriented x 3, equal unlabored respirations, skin warm/dry/pink. 15:33 Reassessment: Patient appears in no apparent distress at this time. No changes from kc6 previously documented assessment. Patient and/or family updated on plan of care and expected duration. Pain level reassessed. Patient is alert, oriented x 3, equal unlabored respirations, skin warm/dry/pink. Vital Signs: 13:10 BP 125 / 74; Pulse 112; Resp 18; Temp 98.5; Pulse Ox 98% ; Weight 65.32 kg; Height 5 db ft. 2 in. ; 13:42 BP 126 / 70; Pulse 100; Resp 16 S; Pulse Ox 99% ; kc6 15:34 BP 97 / 53; Pulse 90; Resp 15 S; Pulse Ox 98% on R/A; kc6 13:10 Body Mass Index 26.34 (65.32 kg, 157.48 cm) db ED Course: 12:57 Patient arrived in ED. ra3 12:58 Rashida Chiu PA-C is PHCP. sb4 12:58 Brian Bui MD is Attending Physician. sb4 13:12 Triage completed. db 13:13 Arm band placed on right wrist. Patient placed in an exam room. db 13:16 Luci Boyd, LISBETH is Primary Nurse. kc6 13:41 Patient has correct armband on for positive identification. Bed in low position. Call kc6 light in reach. Side rails up X 1. Pulse ox on. NIBP on. Door closed. Noise minimized. Lights dimmed. Warm blanket given. Pillow given. 13:41 Inserted saline lock: 20 gauge in right antecubital area, using aseptic technique. kc6 Blood collected. Flushed with 10 mL NS. Patient maintains SpO2 saturation greater than 95% on room air. 14:24 XRAY Chest (1 view) In Process Unspecified. EDMS 15:38 No provider procedures requiring assistance completed. IV discontinued, intact, kc6 bleeding controlled, No redness/swelling at site. Pressure dressing applied. Administered Medications: 13:41 Drug: NS 0.9% IV 1000 ml IV at 1 bolus Per protocol; 1000 mL bolus Route: IV; Rate: 1 kc6 bolus; Site: right antecubital; 14:46 Follow up: Response: No adverse reaction; IV Status: Completed infusion; IV Intake: kc6 1000ml 13:41 Drug: Ondansetron IVP 4 mg IVP once; over 2 minutes Route: IVP; Site: right antecubital;kc6 14:46 Follow up: Response: No adverse reaction; Nausea is decreased kc6 14:27 Drug: NS 0.9% IV 1000 ml IV at 1 bolus Per protocol; 1000 mL bolus Route: IV; Rate: 1 kc6 bolus; Site: right antecubital; 15:12 Follow up: Response: No adverse reaction; IV Status: Completed infusion; IV Intake: kc6 1000ml Medication: 15:39 VIS not applicable for this client. kc6 Point of Care Testing: Blood Glucose: 13:10 Blood Glucose: 315 mg/dL; db Ranges: Intake: 14:46 IV: 1000ml; Total: 1000ml. kc6 15:12 IV: 1000ml; Total: 2000ml. kc6 Outcome: 15:18 Discharge ordered by . ash 15:39 Discharged to home ambulatory, kc6 15:39 Condition: improved 15:39 Discharge instructions given to patient, Instructed on discharge instructions, follow up and referral plans. Demonstrated understanding of instructions, follow-up care, 15:39 Patient left the ED. kc6 Signatures: Dispatcher [employer] Luci Torres RN RN kc6 Milly Cuevas RN RN db Brown, Sophia, PA-C PA-C sb4 Daniela Mckenzie ra3
--- NOTE | 2023-10-26 15:18 | EDPHYS ---
Physician Documentation [facility] Name: Effie Crouch Age: 48 yrs Sex: Female : 1975 Arrival Date: 10/26/2023 Time: 12:53 Bed 6 Private MD: ED Physician Brian Bui HPI: 10/25 13:21 This 48 yrs old Female presents to ER via Ambulatory with complaints of High sb4 Blood Sugar. 13:21 Patient states that her blood sugar has been running high for the past 2 days. She sb4 denies any changes in her medications or any new illnesses. States that she has been more stressed than usual. Says that she is compliant with her metformin and her insulin. States that she barely ate anything yesterday did try and bring her sugar down. She states that now she feels nauseated, blurry vision, short of breath, chest pain, thirsty. Historical: - Allergies: 13:12 No Known Allergies; db - PMHx: 13:12 blood transfusion; Diabetes - NIDDM; Hypertension; Anemia; db - PSHx: 13:12 Cholecystectomy; ; hysterectomy; db - Immunization history:: Adult Immunizations unknown. - Infectious Disease History:: Denies. - Social history:: Smoking status: Patient reports the use of cigarette tobacco products, smokes one-half pack cigarettes per day. ROS: 13:21 Constitutional: Negative for fever, chills, and weight loss, sb4 13:21 Eyes: Positive for blurry vision, 13:21 Cardiovascular: Positive for chest pain, 13:21 Respiratory: Positive for shortness of breath, 13:21 Psych: Positive for anxiety, 13:24 All other systems are negative, sb4 Exam: 13:21 Head/Face: Normocephalic, atraumatic. Eyes: Extra-ocular motions intact. Periorbital sb4 areas with no swelling, redness, or edema. ENT: Mucous membranes moist. Respiratory: Lungs have equal breath sounds bilaterally, clear to auscultation and percussion. No rales, rhonchi or wheezes noted. No increased work of breathing, no retractions or nasal flaring. Abdomen/GI: Soft, non-tender, no distension. Skin: Warm, dry with normal turgor. Normal color with no rashes, no lesions, and no evidence of cellulitis. 13:21 Constitutional: The patient appears alert, awake, anxious, Crying 13:21 Cardiovascular: Rate: tachycardic, Rhythm: regular, Vital Signs: 13:10 BP 125 / 74; Pulse 112; Resp 18; Temp 98.5; Pulse Ox 98% ; Weight 65.32 kg; Height 5 db ft. 2 in. ; 13:42 BP 126 / 70; Pulse 100; Resp 16 S; Pulse Ox 99% ; kc6 15:34 BP 97 / 53; Pulse 90; Resp 15 S; Pulse Ox 98% on R/A; kc6 13:10 Body Mass Index 26.34 (65.32 kg, 157.48 cm) db MDM: 13:00 Patient medically screened. sb4 14:51 Data reviewed: vital signs, nurses notes, lab test result(s), EKG, radiologic studies, sb4 and as a result, I will discharge patient. Care significantly affected by the following chronic conditions: Hypertension. Counseling: I had a detailed discussion with the patient and/or guardian regarding the historical points, exam findings, and any diagnostic results supporting the discharge/admit diagnosis, lab results, radiology results, to return to the emergency department if symptoms worsen or persist or if there are any questions or concerns that arise at home. 10/25 13:20 Order name: Basic Metabolic Panel; Complete Time: 14:10 4 10/25 13:20 Order name: CBC with Diff; Complete Time: 13:57 sb4 10/25 13:20 Order name: LFT's; Complete Time: 14:10 4 10/25 13:20 Order name: Magnesium; Complete Time: 14:10 sb4 10/25 13:20 Order name: NT PRO-BNP; Complete Time: 14:10 sb4 10/25 13:20 Order name: Troponin HS; Complete Time: 14:10 4 10/25 13:20 Order name: UAM; Complete Time: 14:10 sb4 10/25 13:21 Order name: Glucose, Ancillary Testing; Complete Time: 13:22 EDMS 10/25 15:23 Order name: Glucose, Ancillary Testing; Complete Time: 15:24 EDMS 10/25 13:20 Order name: XRAY Chest (1 view); Complete Time: 15:05 sb4 10/25 13:20 Order name: EKG; Complete Time: 13:21 sb4 10/25 13:20 Order name: Cardiac monitoring; Complete Time: 13:33 sb4 10/25 13:20 Order name: EKG - Nurse/Tech; Complete Time: 13:33 sb4 10/25 13:20 Order name: IV Saline Lock; Complete Time: 13:33 sb4 10/25 13:20 Order name: Labs collected and sent; Complete Time: 13:33 sb4 10/25 13:20 Order name: O2 Per Protocol; Complete Time: 13:33 sb4 10/25 13:20 Order name: O2 Sat Monitoring; Complete Time: 13:33 sb4 10/25 14:49 Order name: Accucheck Blood Glucose: after IV fluids; Complete Time: 15:12 sb4 EC:43 Rate is 107 beats/min. Rhythm is regular, Sinus tachycardia. FL interval is normal at sb4 142 msec. QRS interval is normal at 70 msec. QT interval is normal at 336 msec. No Q waves. T waves are Normal. No ST changes noted. Clinical impression: Sinus tachycardia and No evidence of ischemia. Interpreted by me. Reviewed by me. Administered Medications: 13:41 Drug: NS 0.9% IV 1000 ml IV at 1 bolus Per protocol; 1000 mL bolus Route: IV; Rate: 1 kc6 bolus; Site: right antecubital; 14:46 Follow up: Response: No adverse reaction; IV Status: Completed infusion; IV Intake: kc6 1000ml 13:41 Drug: Ondansetron IVP 4 mg IVP once; over 2 minutes Route: IVP; Site: right antecubital;kc6 14:46 Follow up: Response: No adverse reaction; Nausea is decreased kc6 14:27 Drug: NS 0.9% IV 1000 ml IV at 1 bolus Per protocol; 1000 mL bolus Route: IV; Rate: 1 kc6 bolus; Site: right antecubital; 15:12 Follow up: Response: No adverse reaction; IV Status: Completed infusion; IV Intake: kc6 1000ml Point of Care Testing: Blood Glucose: 13:10 Blood Glucose: 315 mg/dL; db Ranges: Critical Glucose Levels:Adult <50 mg/dl or >400 mg/dl <40 mg/dl or >180 mg/dl Disposition Summary: 10/26/23 15:18 Discharge Ordered Notes: Location: Home sb4 Problem: new sb4 Symptoms: have improved sb4 Condition: Stable sb4 Diagnosis - Type 2 diabetes mellitus with hyperglycemia sb4 Followup: sb4 - With: Private Physician - When: 2 - 3 days - Reason: Recheck today's complaints, Re-evaluation by your physician Discharge Instructions: - Discharge Summary Sheet sb4 - High-Fiber Eating Plan sb4 - Blood Glucose Monitoring, Adult sb4 Forms: - Patient Portal Instructions sb4 - Leadership Thank You Letter sb4 Signatures: Dispatcher [employer] Luci Torres RN RN kc6 Milly Cuevas RN RN db Rashida Chiu PA-C PA-C sb4 Corrections: (The following items were deleted from the chart) 13:24 13:21 Neuro: Positive for sb4 sb4 13:24 13:21 Endocrine: Positive for sb4 sb4
[2023-10-26 16:13] VITALS: TEMP 98.5; O2SAT 98
[2023-10-26 16:15] VITALS: BP 97/53
--- NOTE | 2023-10-27 12:38 | EKG ---
Test Date: 2023-10-26 Test Time: 13:27:19 Cleaner: JIMENEZ MEASUREMENT RESULTS: Intervals: Rate: 107 AK: 142 QRSD: 70 QT: 336 QTc: 448 [place]: P: 61 AK: 142 QRS: 55 T: 27 INTERPRETIVE STATEMENTS: Sinus tachycardia Anterior infarct, age undetermined Abnormal ECG Compared to ECG 02/21/2023 11:30:32 No significant changes Electronically Signed On 10-27-23 12:36:57 CDT by Hal Wahl
== END 2023-10-26 15:39 | disposition home or self-care (01) ==
LOC: ER 12:53
DX: E11.65 Type 2 diabetes mellitus with hyperglycemia (principal); F17.210 Nicotine dependence, cigarettes, uncomplicated
CPT/HCPCS: 93005; 96361; 96374; 99284

== ENCOUNTER 2024-02-20 11:41 | Emergency (ER) | payer BC ==
--- OUTSIDE RECORDS SUMMARY | 2024-02-20 11:44 | XMS REPORT | Continuity of Care Document ---
Author Name Unknown Address [address] [facility]. 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 Role Phone HARDEEP ÁLVAREZ Primary Care Physician Unavaila CHASIDY Jimenez Attending Clinician Unavailable CHASIDY MAGALLANES Attending Clinician Unavailable Chasidy Magallanes MD Attending Clinician [phone] Karine Kennedy DNP Attending Clinician [phone] KARINE KENNEDY Attending Clinician Unavailable MARIA VICTORIA LIVINGSTON Attending Clinician Unavail able Sury Choudhary Attending Clinician Unava ilMaria Victoria Mckeon Attending Clinician + SURY MUJICA Attending Clinician Unavailab le Doctor Unassigned, [place] Attending Clinician U judithailCHASIDY Solomon Admitting Clinician Unavailable Payers Payer Name Policy Type Policy Number Effective Date Expirati on Date Source HIM [facility] [id number] 2023 00:00:00 Problems Condition Name Condition Details Condition Category Status Onset Date Resolution Date Last Treatment Date Treating Clinician Comments Source History of herpes genitalis History of herpes genitalis Disease Active 08-16 00:00: 00 [facility] Encounter for surveillan ce of contracept chalino, unspecifie d contracept desean Encounter for surveillan ce of contracept chalino, unspecifie d contracept desean Disease Active 03-02 00:00: 00 [facility] History of hysterecto my History of hysterecto my Disease Active 03-02 00:00: 00 [facility] Vaginal itching Vaginal itching Disease Active 03-02 00:00: 00 [facility] History of hypertensi on History of hypertensi on Disease Active 03-02 00:00: 00 [facility] Family history of diabetes mellitus Family history of diabetes mellitus Disease Active 03-02 00:00: 00 [facility] Class 1 obesity due to excess calories with body mass index (BMI) of 32.0 to 32.9 in adult, unspecifie d whether serious comorbidit y present Class 1 obesity due to excess calories with body mass index (BMI) of 32.0 to 32.9 in adult, unspecifie d whether serious comorbidit y present Disease Active 03-02 00:00: 00 [facility] Class 1 obesity due to excess calories with body mass index (BMI) of 32.0 to 32.9 in adult, unspecifie d whether serious comorbidit y present Class 1 obesity due to excess calories with body mass index (BMI) of 32.0 to 32.9 in adult, unspecifie d whether serious comorbidit y present Disease Active 03-02 00:00: 00 [facility] Well woman exam Well woman exam Disease Active 2018-02 00:00: 00 [facility] S/P KEILA-BSO S/P KEILA-BSO Disease Active 07-11 00:00: 00 [facility] Postoperat desean state Postoperat desean state Disease Active 07-10 00:00: 00 [facility] Symptomati c anemia Symptomati c anemia Disease Active 03-13 00:00: 00 [facility] ASCUS with positive high risk HPV cervical ASCUS with positive high risk HPV cervical Disease Active 2015-02 00:00: 00 [facility] Herpes, vulvar Herpes, vulvar Disease Active 2015-02 0 00:00: 00 [facility] Endometrio sis of uterus Endometrio sis of uterus Disease Active 06-20 00:00: 00 [facility] Adenomyosi s Adenomyosi s Disease Active 06-20 00:00: 00 [facility] ASCUS with 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 colpo 05/31/2014- negative bx#1 FU Pap ASCUScolp o 12/26/2015 [facility] Diabetes Diabetes Disease Active 03-23 00:00: 00 [facility] BMI 32.0-32.9, adult BMI 32.0-32.9, adult Disease Active 03-23 00:00: 00 Overview: Formattin g of this note might be different from the original. 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 Post BTL [facility] Vaginal candidiasi s Vaginal candidiasi s Disease Resolve d 2015-02 0 00:00: 00 2019-02-03 00:00:00 2019-02-03 09:44:06 [facility] Anemia Anemia Disease Resolve d 15 00:00: 00 2019-02-03 00:00:00 2019-02-03 09:44:09 [facility] Dysmenorrh ea Dysmenorrh ea Disease Resolve d 06-20 00:00: 00 2019-02-03 00:00:00 2019-02-03 09:44:02 [facility] Abnormal uterine bleeding (AUB) Abnormal uterine bleeding (AUB) Disease Resolve d 2015-0 4-28 00:00: 00 2019-02-03 00:00:00 2019-02-03 09:43:59 [facility] Uterine enlargemen t Uterine enlargemen t Disease Resolve d 1-29 00:00: 00 2019-02-03 00:00:00 2019-02-03 09:44:06 [facility] Anemia, unspecifie d Anemia, unspecifie d Disease Resolve d 2015-02 008 00:00: 00 2015-12-26 00:00:00 2015-12-26 15:31:25 [facility] Allergies, Adverse Reactions, Alerts Allergy Name Allergy Type Status Severity Reaction(s) Onset Date Inactive Date Treating Clinician Comments Source NO KNOWN ALLERGIE S Drug Class Active [facility] Social History Social Habit Start Date Stop Date Quantity Comments Source [facility] of tobacco use Cigarette Smoker [facility] Alcoholic beverage intake 2024-01-01 00:00:00 2024-01-01 00:00:00 0 /d [facility] Cigarettes smoked current (pack per day) - Reported 2024-01-01 00:00:00 2024-01-01 00:00:00 [facility] Tobacco use and exposure 2024-01-01 00:00:00 2024-01-01 00:00:00 Smokeless tobacco non-user [facility] Cigarette pack-years 2024-01-01 00:00:00 2024-01-01 00:00:00 [facility] Tobacco Comment 2023-07-14 00:00:00 2023-07-14 00:00:00 smokes 7 x per day [facility] History of Social function 2023-07-14 00:00:00 2023-07-14 00:00:00 [facility] Alcohol intake 2021-08-16 00:00:00 2021-08-16 00:00:00 0 /d [facility] Sex assigned at 1975 00:00:00 1975 00:00:00 [facility] Smoking Status Start Date Stop Date Source Smokes tobacco daily 2024-01-01 00:00:00 [facility] Medications Ordered Medication Name Filled Medication Name Start Date Stop Date Current Medication? Ordering Clinician Indication Dosage Frequency Signature (SIG) Comments Components Source acyclovir 400 mg tablet 2023-02 00:00: 00 Yes [id number] 400mg Take 1 tablet by mouth in the morning. [facility] lisinopriL- hydrochloro thiazide 10-12.5 mg per tablet 8-25 00:00: 00 Yes TAKE 1 TABLET BY MOUTH ONCE DAILY IN THE MORNING FOR HIGH BLOOD PRESSURE [facility] acyclovir 400 mg tablet 8-18 00:00: 00 12-31 00:00 :00 No [id number] 400mg Take 1 tablet by mouth in the morning and 1 tablet in the evening. [facility] insulin NPH hum/reg insulin hm (INSULIN 70/30 SC) 2018-02 09:33: 13 Yes inject under the skin. [facility] metformin HCl (METFORMIN ORAL) 2018-02 09:33: 13 Yes Take by mouth. [facility] Immunizations Ordered Immunization Name Filled Immunization Name Date Status Comments Source Influenza Virus Vaccine Quad .5 mL IM 6+ MO 2019-02-03 00:00:00 Completed [facility] Influenza Virus Vaccine Quad .5 mL IM 6+ MO 2019-02-03 00:00:00 Completed [facility] Influenza Virus Vaccine Quad .5 mL IM 6+ MO (FLUZONE/FLULAVAL/F LUARIX) 2019-02-03 00:00:00 Completed [facility] Influenza Virus Vaccine Quad .5 mL IM 6+ MO 2018-01-28 00:00:00 Completed [facility] Influenza Virus Vaccine Quad .5 mL IM 6+ MO 2018-01-28 00:00:00 Completed [facility] Influenza Virus Vaccine Quad .5 mL IM 6+ MO (FLUZONE/FLULAVAL/F LUARIX) 2018-01-28 00:00:00 Completed [facility] TDAP 2014-03-23 00:00:00 Completed [facility] TDAP 2014-03-23 00:00:00 Completed [facility] TDAP 2014-03-23 00:00:00 Completed [facility] TDAP Unknown Completed [facility] Influenza Virus Vaccine Quad .5 mL IM 6+ MO (FLUZONE/FLULAVAL/F LUARIX) Unknown Completed [facility] TDAP Unknown Completed [facility] Influenza Virus Vaccine Quad .5 mL IM 6+ MO (FLUZONE/FLULAVAL/F LUARIX) Unknown Completed [facility] TDAP Unknown Completed [facility] Influenza Virus Vaccine Quad .5 mL IM 6+ MO (FLUZONE/FLULAVAL/F LUARIX) Unknown Completed [facility] Vital Signs Vital Name Observation Time Observation Value Comments S ource Systolic blood pressure 2024-01-01 21:50:00 130 mm[Hg] [facility] Diastolic blood pressure 2024-01-01 21:50:00 82 mm[Hg] [facility] Heart rate 2024-01-01 21:50:00 129 /min [facility] Body temperature 2024-01-01 21:50:00 36.72 Cynthia [facility] Respiratory rate 2024-01-01 21:50:00 18 /min [facility] Body height 2024-01-01 21:50:00 157.5 cm [facility] Body weight 2024-01-01 21:50:00 62.234 kg [facility] BMI 2024-01-01 21:50:00 25.09 kg/m2 [facility] Systolic blood pressure 2023-07-14 15:01:00 148 mm[Hg] [facility] Diastolic blood pressure 2023-07-14 15:01:00 90 mm[Hg] [facility] Heart rate 2023-07-14 15:00:00 97 /min [facility] Body temperature 2023-07-14 15:00:00 36.22 Cynthia [facility] Respiratory rate 2023-07-14 15:00:00 18 /min [facility] Body height 2023-07-14 15:00:00 154.9 cm [facility] Body weight 2023-07-14 15:00:00 62.596 kg [facility] BMI 2023-07-14 15:00:00 26.07 kg/m2 [facility] Encounters Start Date/Time End Date/Time Encounter Type Admission Type Attending Clinicians Care Facility Care Department Encounter ID Source 2024-01-01 15:45:00 2024-01-01 16:20:40 Outpatient R CHASIDY MAGALLANES [facility] [id number] [facility] 2024-01-01 15:45:00 2024-01-01 16:20:40 Office Visit AdChasidy hightower [facility] [id number] 350.1.13.10 4.2.7.2.686 [id number] [facility] 2023-12-24 00:00:00 2023-12-24 14:10:48 Telephone Karine Kennedy [facility] [id number] 350.1.13.10 4.2.7.2.686 [id number] 134 [id number] [facility] 2023-07-29 00:00:00 2023-07-29 15:30:21 Telephone Chasidy Magallanes [facility] [id number] 350.1.13.10 4.2.7.2.686 [id number] [facility] 2023-07-23 15:33:57 2023-07-23 23:59:00 Outpatient R CHASIDY MAGALLANES [facility] [id number] [facility] 2023-07-23 15:33:57 2023-07-23 23:59:00 Hospital Encounter AdChasidy hightower [facility] [id number] 350.1.13.10 4.2.7.2.686 [id number] [facility] 2023-07-14 11:30:00 2023-07-14 11:30:00 Outpatient R KARINE KENNEDY [facility] [id number] [facility] 2023-07-14 09:45:00 2023-07-14 10:40:24 Outpatient R CHASIDY MAGALLANES [facility] [id number] [facility] 2023-07-14 09:45:00 2023-07-14 10:40:24 Office Visit Chasidy Magallanes [facility] 1.840.114 350.1.13.10 4.2.7.2.686 [id number] [facility] 2022-08-22 13:00:00 2022-08-22 13:00:00 Outpatient R [facility] [id number] [facility] 2022-07-08 00:00:00 2022-07-08 00:00:00 Telephone Sury Mujica [facility] EXTR[facility] DIE REPAIRER [facility]NAL & CHILD [facility] 1.840.114 350.1.13.10 4.2.7.2.686 [id number] [facility] 2021-10-10 00:00:00 2021-10-10 00:00:00 Telephone Sury Mujica [facility] DIE REPAIR[facility] CHILD [facility] 1.0.114 350.1.13.10 4.2.7.2.686 [id number] [facility] 2021-10-08 00:00:00 2021-10-08 00:00:00 Telephone Sury Mujica [facility] EXTR[facility] DIE REPAIRER [facility] & CHILD [facility] [id number] 350.1.13.10 4.2.7.2.686 [id number] [facility] 2021-08-27 00:00:00 2021-08-27 00:00:00 Telephone Maria Victoria Livingston [facility] EXTR[facility] DIE REPAIRER [facility] CHILD [facility] [id number] 350.1.13.10 4.2.7.2.686 [id number] [facility] 2021-08-16 09:00:00 2021-08-16 09:54:52 Outpatient SURY CHOUDHURY [facility] [id number] [facility] 2021-08-16 09:00:00 2021-08-16 09:54:52 Office Visit Sury Mujica [facility] EXTR[facility] DIE REPAIRER [facility] & CHILD [facility] 1..114 350.1.13.10 4.2.7.2.686 [id number] 107 [id number] [facility] 2021-08-16 09:00:00 2021-08-16 09:00:00 Outpatient SURY CHOUDHURY [facility] [id number] [facility] 2021-08-16 08:30:00 2021-08-16 08:30:00 Outpatient SURY CHOUDHURY [facility] [id number] [facility] 2021-08-16 00:00:00 2021-08-16 00:00:00 Orders Only Doctor Unassigned, [place] [facility] ..114 350.1.13.10 4.2.7.2.686 [id number] [facility] 2021-07-28 00:00:00 2021-07-28 00:00:00 Refill Sury Mujica [facility]TR[facility] DIE REPAIRER [facility] & CHILD [facility] 1..114 350.1.13.10 4.2.7.2.686 [id number] 107 [id number] [facility] 2020-06-27 00:00:00 2020-06-27 00:00:00 Telephone Maria Victoria Livingston [facility] EXTR[facility] DIE REPAIRER [facility] & CHILD [facility] 1..114 350.1.13.10 4.2.7.2.686 [id number] [facility] 2020-05-22 00:00:00 2020-05-22 00:00:00 Refill Sury Mujica [facility] EXTR[facility] DIE REPAIRER [facility] CHILD [facility] [id number] 350.1.13.10 4.2.7.2.686 [id number] 2020-05-22 00:00:00 2020-05-22 00:00:00 Refill Sury Mujica [facility] EXTR[facility] DIE REPAIRER [facility] & CHILD [facility] [id number] 350.1.13.10 4.2.7.2.686 [id number] [facility] 2020-05-21 00:00:00 2020-05-21 00:00:00 Refill Maria Victoria Livingston [facility] EXTR[facility] DIE REPAIRER [facility] & CHILD [facility] [id number] 350.1.13.10 4.2.7.2.686 [id number] 2020-05-21 00:00:00 2020-05-21 00:00:00 Refill Maria Victoria Livingston [facility] EXTR[facility] DIE REPAIRER [facility] & CHILD [facility] [id number] 350.1.13.10 4.2.7.2.686 [id number] [facility] 2020-04-03 00:00:00 2020-04-03 00:00:00 Outpatient SURY CHOUDHURY [facility] [id number] [facility] 2020-03-06 00:00:00 2020-03-06 00:00:00 Telephone Sury Mujica [facility] EXTR[facility] DIE REPAIRER [facility] & CHILD [facility] [id number] 350.1.13.10 4.2.7.2.686 [id number] 2020-03-06 00:00:00 2020-03-06 00:00:00 Telephone Sury Mujica [facility] EXTR[facility] DIE REPAIRER [facility] & CHILD [facility] [id number] 350.1.13.10 4.2.7.2.686 [id number] [facility] 2020-03-02 09:22:04 2020-03-02 10:49:08 Office Visit Sury Mujica [facility] EXTR[facility] DIE REPAIRER [facility] & CHILD [facility] [id number] 350.1.13.10 4.2.7.2.686 [id number] [facility] 2020-03-02 09:30:00 2020-03-02 09:30:00 Outpatient R SURY MUJICA [facility] [id number] [facility] 2020-03-02 09:30:00 2020-03-02 09:30:00 Outpatient R SURY MUJICA [facility] [id number] [facility] 2020-03-02 09:00:00 2020-03-02 09:00:00 Outpatient R MARIA VICTORIA LIVINGSTON [facility] [id number] [facility] 2020-03-02 00:00:00 2020-03-02 00:00:00 Orders Only Doctor Unassigned, [place] [facility] [id number] 350.1.13.10 4.2.7.2.686 [id number] [facility] 2020-02-29 00:00:00 2020-02-29 00:00:00 Telephone Maria Victoria Livingston [facility] EXTR[facility] DIE REPAIRER [facility] & CHILD [facility] [id number] 350.1.13.10 4.2.7.2.686 [id number] [facility] 2020-02-29 00:00:00 2020-02-29 00:00:00 Refill Maria Victoria Livingston [facility] EXTR[facility]ION DIE REPAIRER [facility] & CHILD [facility] [id number] 350.1.13.10 4.2.7.2.686 [id number] [facility] 2019-12-30 00:00:00 2019-12-30 00:00:00 Orders Only Doctor Unassigned, [place] [facility] 1.2840.114 350.1.13.10 4.2.7.2.686 [id number] [facility] 2019-08-02 08:15:00 2019-08-02 08:15:00 Outpatient R SURY MUJICA [facility] [id number] [facility] 2019-08-02 07:45:14 2019-08-02 08:13:52 Office Visit Sury Mujica [facility] EXTR[facility]ION DIE REPAIRER [facility] CHILD [facility] [id number] 350.1.13.10 4.2.7.2.686 [id number] [facility] 2019-07-29 00:00:00 2019-07-29 00:00:00 Telephone Maria Victoria Livingston [facility] EXTR[facility]ION DIE REPAIRER [facility] CHILD [facility] [id number] 350.1.13.10 4.2.7.2.686 [id number] [facility] Results Test Description Test Time Test Comments Results Result Co mments Source VITAMIN D, 25 [id number] 04:23:26* Test Item Value Reference Range Interpretation [...] . . . . . NG/ML 30-100 LIPID [id number] 22:05:35* Test Item Value Reference Range Interpretation [...] SPECIMENS. FOR MOREINFORMATION, SEE CLIENT ANNOUNCEMENT AT [email or web address] CalcLDL-C RISK RATIO LDL/HDL (test code = 223) (NOTE) RATIO <3.22 UNABLE TO DONNIE CULATE COMPREHENSIVE METABOLIC [id number] 22:05:35* Test Item Value Reference Range Interpretation Comme nts GLUCOSE (test code = 2217) 240 MG/DL 70-99 H BUN (test code = 8) 9 MG/DL 6-20 CREATININE (test code = 2214) 0.47 MG/DL 0.60-1.30 L eGFR (2020 CKD-EPI) (test code = 65342) 118 ML/MIN/1.73 >60 CALC BUN/CREAT (test code = 223) 19 RATIO 6-28 SODIUM (test code = [...] normal/abnormal. ALKALINE PHOSPHATASE (test code = 2204) 94 U/L 40-120 AST (test code = 2218) 9 U/L 9-40 ALT (test code = 2219) 49 U/L 5-40 H IRON, [id number] 22:05:35* Test Item Value Reference Range Interpretation Comme nts IRON, SERUM (test code = 2222) 91 UG/DL 37-145 UNLESS OTHERWISE INDICATED, ALL TESTING PERFORMED [facility] [employer] [address] [place] [address] FINGERNAIL TECHNICIAN: MARLENE GONZALEZ M.D. CLIA NUMBER [id number] [facility]. [id number] VITAMIN [id number] 05:31:10* Test Item Value Reference Range Interpretation Comme nts VITAMIN B-12 (test code = 2840) >2000 PG/ML 200-950 H CBC W/AUTO DIFF WITH [id number] 03:36:44* Test Item Value Reference Range Interpretation [...] = 1065) 0.0 /100 WBC'S See_Comment [Automated [employer] ge] The system which generated this result [...] 0.00-0.10 ABS NUCLEATED RBCS (test code = 14023) 0.02 K/UL 0.00-0.11 HEMOGLOBIN [id number] 03:25:41* Test Item Value Reference Range Interpretation Comme nts HEMOGLOBIN A1c (test code = 93952) 8.7 % 4.2-5.6 H [employer] GUIDELINES FOR HGB A1C: [...] ETC.). CONSIDER ALTERNATE TESTING OR LABORATORY CONSULTATION. [id number] 04:11:20* Test Item Value Reference Range Interpretation Comme nts LIPASE (test code = 2058) 18 U/L 13-60 [id number] 04:11:20* Test Item Value Reference Range Interpretation Comme nts AMYLASE (test code = 2205) 41 U/L 28-100 UNLESS OTHERWISE INDICATED, ALL TESTING PERFORMED [facility] [employer] [address] [place] [address] FINGERNAIL TECHNICIAN: MARLENE GONZALEZ M.D. [place] NUMBER [id number] [facility]. [id number] HEMOGLOBIN [id number] 05:11:03* Test Item Value Reference Range Interpretation Comme [facility] HEMOGLOBIN A1c (test code = 43158) 8.2 % 4.2-5.6 H [employer] GUIDELINES FOR HGB A1C: [...] ALTERNATE TESTING OR LABORATORY CONSULTATION. COMPREHENSIVE METABOLIC [id number] 04:59:22* Test Item Value Reference Range Interpretation Comme nts GLUCOSE (test code = 2217) 216 MG/DL 70-99 H BUN (test code = 2208) 7 MG/DL 6-20 CREATININE (test code = 2214) 0.35 MG/DL 0.60-1.30 L eGFR (2020 CKD-EPI) (test code = 03239) 127 ML/MIN/1.73 >60 CALC BUN/CREAT (test code = 2235) 20 RATIO 6-28 SODIUM (test code = 2231) 134 MEQ/L 133-146 POTASSIUM (test code = [...] normal/abnormal. ALKALINE PHOSPHATASE (test code = 2204) 111 U/L 40-120 AST (test code = 2218) 23 U/L 9-40 ALT (test code = 2219) <5 U/L 5-40 L LIPID [id number] 04:59:22* Test Item Value Reference Range Interpretation Comme nts CHOLESTEROL (test code = 2210) 539 MG/DL <200 H TRIGLYCERIDES (test code = 2232) 2237 MG/DL <150 H SPECIMEN LI PEMIC RESULTS [...] SPECIMENS. FOR MOREINFORMATION, SEE CLIENT ANNOUNCEMENT AT [email or web address] CalcLDL-C RISK RATIO LDL/HDL (test code = 2238) 7.20 RATIO <3.22 H UNABLE TO DONNIE CULATE UNLESS OTHERWISE INDICATED, ALL TESTING PERFORMED [facility] [address] [place] [address] FINGERNAIL TECHNICIAN: MARLENE GONZALEZ M.D. CLIA NUMBER [id number] [facility]. [id number] CBC W/AUTO DIFF WITH [id number] 04:14:18* Test Item Value Reference Range Interpretation [...] 0.00-0.10 ABS NUCLEATED RBCS (test code = 90732) 0.00 K/UL 0.00-0.11
--- NOTE | 2024-02-20 13:51 | RAD REPORT ---
EXAM: Chest Single View HISTORY: CHEST PAIN COMPARISON: None. FINDINGS: LUNGS/PLEURA: The lungs are clear. No pleural effusions or pneumothorax. No pulmonary edema. MEDIASTINUM: The mediastinal silhouette is within normal limits. CARDIAC: Within normal limits. UPPER ABDOMEN: No significant abnormality. BONES: No acute fracture. LINES/TUBES/OTHER: N/A IMPRESSION: No evidence of acute cardiopulmonary disease.
[2024-02-20 13:54] LABS: PT Prothrombin Time 10.5 SECONDS (9.4-12.5); Protime INR 0.94
[2024-02-20 14:13] LABS: Absolute Eosinophils 0.1 K/uL (0-0.5); Absolute Lymphocytes (CBC) 2.2 K/uL (0.7-4.9); Absolute Monocytes 0.4 K/uL (0.1-1.3); Basophils % 0.1 % (0-1.3); Eosinophils % 1.1 % (0-4.4); Hematocrit 43.9 % (36.0-45.0); Hemoglobin 14.3 g/dL (12.0-15.0); MCH 29.5 pg (27.0-35.0); MCHC 32.5 g/dL (32.0-36.0); MCV 90.7 fL (80-100); MPV 8.5 fL (7.6-11.3); Neutrophils % 68.8 % (41.7-73.7); Platelets 267 thou/uL (152-406); RBC Red Blood Cell Count 4.83 M/uL (3.86-4.86)
[2024-02-20 14:17] LABS: SARS-CoV-2 Antigen CONTROL BLUE LINE VIS/BG OK; SARS-CoV-2 Antigen Rapid Res Negative (Negative)
[2024-02-20 14:36] LABS: Albumin 3.7 g/dL (3.4-5.0); Albumin/Globulin Ratio 1.2 (1.1-1.8); Anion Gap 9.7 mEq/L (5.0-15.0); Bilirubin Direct 0.2 mg/dL (0-0.2); Bilirubin Indirect, Calculated 0.3 mg/dL (0.2-0.8); Bilirubin Total 0.5 mg/dL (0.2-1.0); Globulin 3.1 g/dL (2.3-3.5); Magnesium 1.6 mg/dL (1.6-2.4); Potassium 3.7 mEq/L (3.5-5.1); Protein, Total 6.8 g/dL (6.4-8.2); Troponin High Sensitivity 4.5 pg/mL (<58.9)
[2024-02-20] MEDS ORDERED: NA CHLORIDE 0.9% 1,000 ML ONE (16:29)
--- NOTE | 2024-02-20 17:17 | RAD REPORT ---
EXAM: Angio Aorta For Dissection CLINICAL INDICATION: Female, 48 years chest pain back pain TECHNIQUE: CTA of the aorta was obtained including the chest, abdomen and pelvis, with IV contrast, a s per department protocol. Axial, sagittal and coronal reconstructions were obtained. Post-processing was applied at the acquisition scanner with concurrent physician supervision which in cludes 3D reconstructions, MIPs, volume rendered images and/or shaded surface rendering. One or more of the following dose reduction techniques were used: Automated exposure control, adjustment of the mA and/or kV according to the patient size, and/or iterative reconstruction. Unless otherwise specified, incidental findings do not require dedicated imaging follow-up. [id number]. COMPARISON: CT abdomen/pelvis 01/02/2022 FINDINGS: Chest: LOWER NECK/CHEST WALL: Visualized thyroid gland and soft tissues are normal. LUNGS AND AIRWAYS: Airways are clear. No evidence of airspace or interstitial process. No nodules. PLEURA: No pleural effusion. No pneumothorax. Hemidiaphragms are normally positioned. MEDIASTINUM AND LYMPH NODES: No mediastinal mass or fluid collection. Normal size mediastinal, hilar, and axillary lymph nodes. THORACIC AORTA: Normal caliber and configuration. No aneurysm or dissection. PULMONARY ARTERIES: Normal caliber. HEART: Mild coronary artery calcifications. Abdomen/Pelvis UPPER GI: Mild circumferential thickening of the distal esophagus. LIVER: Hepatic steatosis, but otherwise unremarkable. GALLBLADDER/BILE DUCTS: Cholecystectomy. Mild extra-hepatic biliary ductal dilatation is likely relat ed to the post-cholecystectomy state. Consider correlating with LFT's.? PANCREAS: No mass, ductal dilation, or almaz-pancreatic fluid. SPLEEN: Unremarkable. ADRENALS: No adrenal masses. KIDNEYS AND URETERS: Normal size and contour. No hydronephrosis.No suspicious renal mass. ABDOMINAL AORTA AND OTHER VESSELS: Mild atherosclerotic changes. PERITONEUM: No abnormal free fluid. No free air. LYMPH NODES: No pathologic lymphadenopathy. ABDOMINAL WALL: Nonspecific skin thickening at the anterior abdominal wall. Fat-containing umbilical and periumbilical hernia. SMALL BOWEL/COLON: Small bowel has normal course and caliber. No colonic wall thickening or pericolon ic inflammatory changes.Appendix absent. URINARY BLADDER: Underdistended but grossly unremarkable. REPRODUCTIVE ORGANS: Uterus surgically absent. No adnexal abnormality. MUSCULOSKELETAL: No acute or suspicious osseous abnormality. Sclerotic focus in T4 is likely a bone i sland. ADDITIONAL FINDINGS: None. IMPRESSION: No aortic aneurysm or dissection. No acute or significant abnormalities in the chest, abdomen, or pel vis.
--- NOTE | 2024-02-20 17:25 | EDPHYS ---
Physician Documentation [facility] Name: Effie Crouch Age: 48 yrs Sex: Female : 1975 Arrival Date: 02/20/2024 Time: 11:41 Bed 12 Private MD: ED Physician Bairon Lujan HPI: 02/19 16:26 This 48 yrs old Female presents to ER via Ambulatory with complaints of Chest sb4 Pain, Shortness Of Breath. 16:27 joint pain for "awhile" now with associated fatigue and malaise. states that this sb4 morning she started experiencing a tightness in her chest that is associated with shortness of breath. she states that she has also been getting a pain in her upper back, in between her shoulder blades. reports a history of HTN but no known CAD. states she had a stress test a few years ago that was inconclusive. Historical: - Allergies: 12:01 No Known Drug Allergies; hb - PMHx: 12:01 Anemia; blood transfusion; Diabetes - NIDDM; Hypertension; hb - PSHx: 12:01 Cholecystectomy; ; Appendectomy; Partial Hysterectomy; hb - Immunization history:: Adult Immunizations up to date. - Infectious Disease History:: Denies. - Social history:: Smoking status: Patient denies any tobacco usage or history of. ROS: 16:27 Constitutional: Negative for fever, chills, and weight loss, sb4 16:27 Cardiovascular: Positive for chest pain, 16:27 Respiratory: Positive for shortness of breath, 16:27 Back: Positive for pain at rest, of the thoracic area, 16:27 All other systems are negative, Exam: 16:27 Constitutional: This is a well developed, well nourished patient who is awake, alert, sb4 and in no acute distress. Head/Face: Normocephalic, atraumatic. Eyes: Extra-ocular motions intact. Periorbital areas with no swelling, redness, or edema. ENT: Mucous membranes moist. Cardiovascular: Regular rate and rhythm with a normal S1 and S2. Respiratory: No increased work of breathing, no retractions or nasal flaring. Abdomen/GI: Soft, non-tender, no distension. Back: No spinal tenderness. No costovertebral tenderness. Full range of motion. Vital Signs: 11:50 BP 119 / 96; Pulse 105; Resp 20; Temp 98.2; Pulse Ox 100% on R/A; Pain 3/10; hb 13:10 BP 127 / 84; Pulse 79; Resp 17; Pulse Ox 98% on R/A; rs5 16:44 BP 122 / 88; Pulse 80; Resp 17; Pulse Ox 99% on R/A; rs5 17:30 BP 125 / 84; Pulse 77; Resp 17; Pulse Ox 99% on R/A; rs5 11:50 Pain Scale: Adult hb MDM: 12:05 Medical Screening Exam initiated sb4 17:23 Data reviewed: vital signs, nurses notes, lab test result(s), EKG, radiologic studies, sb4 and as a result, I will discharge patient. 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 02/19 12:10 Order name: Basic Metabolic Panel; Complete Time: 14:38 sb4 02/19 12:10 Order name: CBC with Diff; Complete Time: 14:19 sb4 02/19 12:10 Order name: LFT's; Complete Time: 14:38 sb4 02/19 12:10 Order name: Magnesium; Complete Time: 14:38 sb4 02/19 12:10 Order name: NT PRO-BNP; Complete Time: 14:38 sb4 02/19 12:10 Order name: PT-INR; Complete Time: 13:55 sb4 02/19 12:10 Order name: Troponin HS; Complete Time: 14:38 sb4 02/19 12:10 Order name: SARS RAPID; Complete Time: 14:19 sb4 02/19 12:10 Order name: Flu; Complete Time: 14:19 sb4 02/19 16:18 Order name: Troponin High Sensitivity; Complete Time: 17:04 sb4 02/19 12:10 Order name: XRAY Chest (1 view); Complete Time: 13:52 sb4 02/19 14:16 Order name: CT Aorta for Dissection; Complete Time: 17:19 rs5 02/19 11:59 Order name: EKG; Complete Time: 12:00 hb 02/19 11:59 Order name: EKG - Nurse/Tech; Complete Time: 11:59 hb 02/19 12:10 Order name: Cardiac monitoring; Complete Time: 13:57 sb4 02/19 12:10 Order name: IV Saline Lock; Complete Time: 13:37 sb4 02/19 12:10 Order name: Labs collected and sent; Complete Time: 13:37 sb4 02/19 12:10 Order name: O2 Per Protocol; Complete Time: 13:57 sb4 02/19 12:10 Order name: O2 Sat Monitoring; Complete Time: 13:57 sb4 EC:23 Rate is 95 beats/min. Rhythm is regular, Normal Sinus Rhythm. MA interval is normal at sb4 136 msec. QRS interval is normal at 76 msec. QT interval is normal at 362 msec. No Q waves. T waves are Normal. No ST changes noted. Clinical impression: Normal ECG. Interpreted by me. Reviewed by me. Administered Medications: 16:37 Drug: NS 0.9% IV 1000 ml IV at 1 bolus Per protocol; to be given as a bolus over 60 rs5 minutes Route: IV; Rate: 1 bolus; Site: left antecubital; 17:30 Follow up: IV Status: Completed infusion; IV Intake: 999ml rs5 Disposition: 21:27 Co-signature as Attending Physician, Bairon Lujan MD I agree with the assessment and jacqueline plan of care. Disposition Summary: 02/20/24 17:24 Discharge Ordered Notes: Location: Home sb4 Problem: new sb4 Symptoms: have improved sb4 Condition: Stable sb4 Diagnosis - Gastro-esophageal reflux disease with esophagitis sb4 - Chest pain, unspecified sb4 Followup: sb4 - With: Gagandeep Cardoza MD - When: As needed - Reason: Recheck today's complaints, Re-evaluation by your physician Followup: sb4 - With: Randy Zee MD - When: 2 - 3 days - Reason: Further diagnostic work-up, Recheck today's complaints, Re-evaluation by your physician Discharge Instructions: - Discharge Summary Sheet sb4 - Esophagitis sb4 - Nonspecific Chest Pain, Adult, [id number] sb4 - Gastroesophageal Reflux Disease, Adult, [id number] sb4 Forms: - Patient Portal Instructions sb4 - Leadership Thank You Letter sb4 Prescriptions: - Protonix 40 mg Oral Tablet - take 1 tablet ORAL route once daily; 30 tablet; Refills: 0, Product Selection sb4 Permitted Signatures: Dispatcher [employer] EDMS Bairon Lujan MD MD cha Baxter, Heather, RN RN Rashida Goodwin, PAJessicaC PAWesley sb4 Franki Engel RN RN rs5 Corrections: (The following items were deleted from the chart) 12:02 12:01 PSHx: hysterectomy; hb hb 12:11 12:11 BASIC METABOLIC PANEL+C.LAB.BRZ ordered. EDMS EDMS 12:11 12:11 CBC+H.LAB.BRZ ordered. EDMS EDMS 12:11 12:11 HEPATIC FUNCTION+C.LAB.BRZ ordered. EDMS EDMS 12:11 12:11 MAGNESIUM+C.LAB.BRZ ordered. EDMS EDMS 12:11 12:11 PROBNP+C.LAB.BRZ ordered. EDMS EDMS 12:11 12:11 PROTIME (+INR)+COAG.LAB.BRZ ordered. EDMS EDMS 12:11 12:11 Troponin High Sensitivity+C.LAB.BRZ ordered. EDMS EDMS 12:11 12:11 SARS-COV-2 Antigen Rapid+I.LAB.BRZ ordered. EDMS EDMS 12:11 12:11 Influenza Screen (A \\T\\ B)+BA.LAB.BRZ ordered. EDMS EDMS 12:11 12:11 Chest Single View+RAD.RAD.BRZ ordered. EDMS EDMS
--- NOTE | 2024-02-20 17:25 | ER ---
Nurse's Notes [facility] Name: Effie Crouch Age: 48 yrs Sex: Female : 1975 Arrival Date: 02/20/2024 Time: 11:41 Bed 12 Private MD: Diagnosis: Gastro-esophageal reflux disease with esophagitis;Chest pain, unspecified Presentation: 02/19 11:50 Chief complaint: Body aches, malaise, and SOB x 2 weeks, midsternal chest pain that hb radiates to upper back since last night. Coronavirus screen: Client presents with at least one sign or symptom that may indicate coronavirus-19. Provider contacted for isolation considerations. Ebola Screen: No symptoms or risks identified at this time. Initial Sepsis Screen: Does the patient meet any 2 criteria? No. Patient's initial sepsis screen is negative. Does the patient have a suspected source of infection? No. Patient's initial sepsis screen is negative. Risk Assessment: Do you want to hurt yourself or someone else? Patient reports no desire to harm self or others. Onset of symptoms was February 06, 2024. 11:50 Method Of Arrival: Ambulatory hb 11:50 Acuity: MARNI 3 hb Historical: - Allergies: 12:01 No Known Drug Allergies; hb - PMHx: 12:01 Anemia; blood transfusion; Diabetes - NIDDM; Hypertension; hb - PSHx: 12:01 Cholecystectomy; ; Appendectomy; Partial Hysterectomy; hb - Immunization history:: Adult Immunizations up to date. - Infectious Disease History:: Denies. - Social history:: Smoking status: Patient denies any tobacco usage or history of. Screenin:01 [facility] ED Fall Risk Assessment (Adult) History of falling in the last 3 months, rs5 including since admission No falls in past 3 months (0 pts) Confusion or Disorientation No (0 pts) Intoxicated or Sedated No (0 pts) Impaired Gait No (0 pts) Mobility Assist Device Used No (0 pt) Altered Elimination No (0 pt) Score/Fall Risk Level 0 - 2 = Low Risk Oriented to surroundings, Maintained a safe environment. Abuse screen: Denies threats or abuse. Nutritional screening: No deficits noted. Tuberculosis screening: No symptoms or risk factors identified. Assessment: 13:01 Reassessment: pt brought back to room . rs5 13:05 General: Appears in no apparent distress. uncomfortable, Behavior is calm, cooperative. rs5 Pain: Complains of pain in chest Pain does not radiate. Pain currently is 3 out of 10 on a pain scale. Quality of pain is described as aching, Pain began 2 hours ago. Neuro: Level of Consciousness is awake, alert, obeys commands, Oriented to person, place, time, situation. Cardiovascular: Patient's skin is warm and dry. Rhythm is regular. Respiratory: Airway is patent Respiratory effort is even, unlabored, Respiratory pattern is regular, symmetrical. GI: Abdomen is round non-distended, Abd is soft and non tender X 4 quads. 13:05 : No signs and/or symptoms were reported regarding the genitourinary system. EENT: No rs5 signs and/or symptoms were reported regarding the EENT system. Derm: Skin is intact, Skin is pink, warm \T\ dry. Musculoskeletal: Range of motion: intact in all extremities. 14:10 Reassessment: Patient and/or family updated on plan of care and expected duration. Pain rs5 level reassessed. Patient is alert, oriented x 3, equal unlabored respirations, skin warm/dry/pink. Respiratory: Breath sounds are clear. 15:15 Reassessment: Patient and/or family updated on plan of care and expected duration. Pain rs5 level reassessed. Patient is alert, oriented x 3, equal unlabored respirations, skin warm/dry/pink. 16:43 Reassessment: Patient and/or family updated on plan of care and expected duration. Pain rs5 level reassessed. Patient is alert, oriented x 3, equal unlabored respirations, skin warm/dry/pink. 17:33 Reassessment: Patient and/or family updated on plan of care and expected duration. Pain rs5 level reassessed. Patient is alert, oriented x 3, equal unlabored respirations, skin warm/dry/pink. Vital Signs: 11:50 BP 119 / 96; Pulse 105; Resp 20; Temp 98.2; Pulse Ox 100% on R/A; Pain 3/10; hb 13:10 BP 127 / 84; Pulse 79; Resp 17; Pulse Ox 98% on R/A; rs5 16:44 BP 122 / 88; Pulse 80; Resp 17; Pulse Ox 99% on R/A; rs5 17:30 BP 125 / 84; Pulse 77; Resp 17; Pulse Ox 99% on R/A; rs5 11:50 Pain Scale: Adult hb ED Course: 11:47 Patient arrived in ED. al6 11:55 EKG done, by ED staff, reviewed by Bairon Lujan MD. hb 12:01 Triage completed. hb 12:01 Inserted saline lock: 22 gauge in right antecubital area, using aseptic technique. by rs5 ED staff. Patient maintains SpO2 saturation greater than 95% on room air. 12:02 Arm band placed on. hb 12:05 Rashida Chiu PA-C is PHCP. sb4 12:05 Bairon Lujan MD is Attending Physician. sb4 13:00 Patient has correct armband on for positive identification. Bed in low position. Call rs5 light in reach. Side rails up X2. 13:31 XRAY Chest (1 view) In Process Unspecified. EDMS 13:37 Basic Metabolic Panel Sent. ss 13:37 CBC with Diff Sent. ss 13:37 LFT's Sent. ss 13:37 Magnesium Sent. ss 13:37 NT PRO-BNP Sent. ss 16:05 No provider procedures requiring assistance completed. rs5 16:19 Franki Engel, RN is Primary Nurse. rs5 17:01 CT Aorta for Dissection In Process Unspecified. EDMS 17:24 Gagandeep Cardoza MD is Referral Physician. sb4 17:24 Randy Zee MD is Referral Physician. sb4 17:45 IV discontinued, intact, bleeding controlled, No redness/swelling at site. Pressure rs5 dressing applied. Administered Medications: 16:37 Drug: NS 0.9% IV 1000 ml IV at 1 bolus Per protocol; to be given as a bolus over 60 rs5 minutes Route: IV; Rate: 1 bolus; Site: left antecubital; 17:30 Follow up: IV Status: Completed infusion; IV Intake: 999ml rs5 Medication: 16:45 VIS not applicable for this client. rs5 Intake: 17:30 IV: 999ml; Total: 999ml. rs5 Outcome: 17:24 Discharge ordered by . sb4 17:45 Discharged to home ambulatory, rs5 17:45 Condition: stable rs5 17:45 Discharge instructions given to patient, family, Instructed on discharge instructions, follow up and referral plans. medication usage, Demonstrated understanding of instructions, follow-up care, medications, Prescriptions given X 1, 17:49 Patient left the ED. rs5 Signatures: Dispatcher [employer] EDMS Ghada Kwon RN RN Gail Ledesma RN RN Rashida Chiu, PA-C PA-C sb4 Franki Engel RN RN rs5 Anna [email or web address] Corrections: (The following items were deleted from the chart) 12:02 12:01 PSHx: hysterectomy; hb hb 16:44 13:10 BP 122 / 88; Pulse 80bpm; Resp 17bpm; Pulse Ox 99% RA; rs5 rs5
[2024-02-20 19:17] VITALS: TEMP 98.2
[2024-02-20 19:21] VITALS: BP 122/88; O2SAT 99
--- NOTE | 2024-02-22 11:15 | EKG ---
Test Date: 2024-02-20 Test Time: 11:55:41 [employer] Cleaning Hand: HB MEASUREMENT RESULTS: Intervals: Rate: 95 NE: 136 QRSD: 76 QT: 362 QTc: 454 [place]: P: 21 NE: 136 QRS: -12 T: 45 INTERPRETIVE STATEMENTS: Normal sinus rhythm Inferior infarct, age undetermined Anteroseptal infarct, age undetermined Abnormal ECG Compared to ECG 10/26/2023 13:27:19 Sinus tachycardia no longer present Myocardial infarct finding still present Electronically Signed On 02-22-24 11:11:40 [employer] SALES REPRESENTATIVE by Hal Wahl
== END 2024-02-20 17:49 | disposition home or self-care (01) ==
LOC: ER 11:41
DX: K21.00 Gastro-esophageal reflux disease with esophagitis, without bleeding (principal); Z11.52 Encounter for screening for COVID-19; E11.9 Type 2 diabetes mellitus without complications; I10 Essential (primary) hypertension
CPT/HCPCS: 93005; 85025; 80048; 36415; 83735; 85610; 80076; 84484 ×2; 83880; 87804 ×2; 71275; 74175; 71045; 96360; 99284; 87811; Q9967; J7030

== ENCOUNTER 2024-07-12 09:20 | Emergency (ER) | payer OTHER ==
--- OUTSIDE RECORDS SUMMARY | 2024-07-12 09:29 | XMS REPORT | Continuity of Care Document ---
Author Name Unknown Address [address] [facility] [place] [address] Organization [facility] Address [address] [facility] [address] [place] [address] Care Team Providers Care Processing Analyst Name Role Phone Otf Perez Primary Care Physician + Sury Choudhary Attending Clinician + [phone] Doctor Unassigned, [place] Attending Clinician U CHASIDY Worrell Attending Clinician Unavailable CHASIDY MAGALLANES Attending Clinician Unavailable Chasidy Magallanes MD Attending Clinician [phone] Karine Kennedy DNP Attending Clinician [phone] KRAINE KENNEDY Attending Clinician Unavailable MARIA VICTORIA LIVINGSTON Attending Clinician Unavail able Sury Choudhary Attending Clinician Unava ilMaria Victoria Mckeon Attending Clinician + SURY MUJICA Attending Clinician Unavailab rachelle Doctor Unassigned, [place] Attending Clinician U CHASIDY Worrell Admitting Clinician Unavailable Payers Payer Name Policy Type Policy Number Effective Date Expirati on Date Source Problems Condition Name Condition Details Condition Category Status Onset Date Resolution Date Last Treatment Date Treating Clinician Comments Source History of herpes genitalis History of herpes genitalis Disease Active 08-16 00:00: 00 [facility] Encounter for surveillan ce of contracept chalino, unspecifie d contracept desean Encounter for surveillan ce of contracept chalino, unspecifie d contracept desean Disease Active 03-02 00:00: 00 [facility] History of hysterecto my History of hysterecto my Disease Active 03-02 00:00: 00 [facility] Vaginal itching Vaginal itching Disease Active 03-02 00:00: 00 [facility] History of hypertensi on History of hypertensi on Disease Active 03-02 00:00: 00 [facility] Family history of diabetes mellitus Family history of diabetes mellitus Disease Active 03-02 00:00: 00 [facility] Class 1 obesity due to excess calories with body mass index (BMI) of 32.0 to 32.9 in adult, unspecifie d whether serious comorbidit y present Class 1 obesity due to excess calories with body mass index (BMI) of 32.0 to 32.9 in adult, unspecifie d whether serious comorbidit y present Disease Active 03-02 00:00: 00 [facility] Class 1 obesity due to excess calories with body mass index (BMI) of 32.0 to 32.9 in adult, unspecifie d whether serious comorbidit y present Class 1 obesity due to excess calories with body mass index (BMI) of 32.0 to 32.9 in adult, unspecifie d whether serious comorbidit y present Disease Active 03-02 00:00: 00 [facility] Well woman exam Well woman exam Disease Active 2018-02 00:00: 00 [facility] S/P KEILA-BSO S/P KEILA-BSO Disease Active 07-11 00:00: 00 [facility] Postoperat desean state Postoperat desean state Disease Active 07-10 00:00: 00 [facility] Symptomati c anemia Symptomati c anemia Disease Active 03-13 00:00: 00 [facility] ASCUS with positive high risk HPV cervical ASCUS with positive high risk HPV cervical Disease Active 2015-02 00:00: 00 [facility] Herpes, vulvar Herpes, vulvar Disease Active 2015-02 0 00:00: 00 [facility] Endometrio sis of uterus Endometrio sis of uterus Disease Active 06-20 00:00: 00 [facility] Adenomyosi s Adenomyosi s Disease Active 06-20 00:00: 00 [facility] ASCUS with 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 colpo 05/31/2014- negative bx#1 FU Pap ASCUScolp o 12/26/2015 [facility] Diabetes Diabetes Disease Active 03-23 00:00: 00 [facility] BMI 32.0-32.9, adult BMI 32.0-32.9, adult Disease Active 03-23 00:00: 00 Overview: Formattin g of this note might be different from the original. 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 Post BTL [facility] Vaginal candidiasi s Vaginal candidiasi s Disease Resolve d 2015-02 0 00:00: 00 2019-02-03 00:00:00 2019-02-03 09:44:06 [facility] Anemia Anemia Disease Resolve d 09-06 00:00: 00 2019-02-03 00:00:00 2019-02-03 09:44:09 [facility] Dysmenorrh ea Dysmenorrh ea Disease Resolve d 06-20 00:00: 00 2019-02-03 00:00:00 2019-02-03 09:44:02 [facility] Abnormal uterine bleeding (AUB) Abnormal uterine bleeding (AUB) Disease Resolve d 4-28 00:00: 00 2019-02-03 00:00:00 2019-02-03 09:43:59 [facility] Uterine enlargemen t Uterine enlargemen t Disease Resolve d 1-29 00:00: 00 2019-02-03 00:00:00 2019-02-03 09:44:06 [facility] Anemia, unspecifie d Anemia, unspecifie d Disease Resolve d 2015-02 0 00:00: 00 2015-12-26 00:00:00 2015-12-26 15:31:25 [facility] Allergies, Adverse Reactions, Alerts Allergy Name Allergy Type Status Severity Reaction(s) Onset Date Inactive Date Treating Clinician Comments Source NO KNOWN ALLERGIE S Drug Class Active [facility] Social History Social Habit Start Date Stop Date Quantity Comments Source [facility] History of tobacco use Cigarette Smoker [facility] History of Social function 2023-07-14 00:00:00 2023-07-14 00:00:00 [facility] Alcoholic beverage intake 2021-08-16 00:00:00 2021-08-16 00:00:00 0 /d [facility] Alcohol intake 2021-08-16 00:00:00 2021-08-16 00:00:00 0 /d [facility] Cigarettes smoked current (pack per day) - Reported 2019-02-03 00:00:00 2019-02-03 00:00:00 [facility] Tobacco use and exposure 2019-02-03 00:00:00 2019-02-03 00:00:00 Smokeless tobacco non-user [facility] Cigarette pack-years 2019-02-03 00:00:00 2019-02-03 00:00:00 [facility] Tobacco Comment 2014-03-23 00:00:00 2014-03-23 00:00:00 smokes 7 x per day [facility] Sex assigned at 1975 00:00:00 1975 00:00:00 [facility] Smoking Status Start Date Stop Date Source Smokes tobacco daily 2019-02-03 00:00:00 [facility] Medications Ordered Medication Name Filled Medication Name Start Date Stop Date Current Medication? Ordering Clinician Indication Dosage Frequency Signature (SIG) Comments Components Source acyclovir 400 mg tablet 2023-02 00:00: 00 Yes [id number] 400mg Take 1 tablet by mouth in the morning. [facility] lisinopriL- hydrochloro thiazide 10-12.5 mg per tablet 10-17 00:00: 00 Yes TAKE 1 TABLET BY MOUTH ONCE DAILY IN THE MORNING FOR HIGH BLOOD PRESSURE [facility] TAKE 1 TABLET BY MOUTH TWICE DAILY FOR 5 DAYS 10-17 00:00: 00 No TAKE 1 TABLET BY MOUTH TWICE DAILY FOR 5 DAYS 10-17 00:00: 00 No acyclovir 400 mg tablet 10-10 00:00: 00 12-31 00:00 :00 No [id number] 400mg Take 1 tablet by mouth in the morning and 1 tablet in the evening. [facility] lisinopril 5 mg tablet 09-12 00:00: 00 [...] 00 No 1mg lovastatin 40 mg tablet 2021-0 6-05 00:00: 00 No 1mg lovastatin 40 mg tablet 6-05 00:00: 00 No 1mg Novolin 70/30 U-100 [...] 00 No 1mg metformin 1,000 mg tablet 2- 00:00: 00 No 1mg metformin 1,000 mg [...] 1mg Dose Unknown 2- 00:00: 00 No fenofibrate micronized 130 mg [...] 09:33: 13 Yes inject under the skin. [facility] metformin HCl (METFORMIN ORAL) 2018-02 09:33: 13 Yes Take by mouth. [facility] Novolin 70/30 U-100 Insulin 100 unit/mL [...] 00 No 1mg lisinopril 5 mg tablet 10-04 00:00: 00 No 1mg lisinopril 5 mg tablet 10-04 00:00: 00 No 1mg citalopram 10 mg [...] Insulin 100 unit/mL subcutaneou s solution 2017-02 012 00:00: 00 No unit/mL Levemir U-100 Insulin 100 unit/mL subcutaneou s solution 2017-02 0 00:00: 00 No unit/mL bupropion HCl SR [...] mL IM 6+ MO 2019-02-03 00:00:00 Completed [facility] Influenza Virus Vaccine Quad .5 mL IM 6+ MO 2019-02-03 00:00:00 Completed [facility] Influenza Virus Vaccine Quad .5 mL IM 6+ MO (FLUZONE/FLULAVAL/F LUARIX) 2019-02-03 00:00:00 Completed [facility] Influenza Virus Vaccine Quad .5 mL IM 6+ MO 2018-01-28 00:00:00 Completed [facility] Influenza Virus Vaccine Quad .5 mL IM 6+ MO 2018-01-28 00:00:00 Completed [facility] Influenza Virus Vaccine Quad .5 mL IM 6+ MO (FLUZONE/FLULAVAL/F LUARIX) 2018-01-28 00:00:00 Completed [facility] TDAP 2014-03-23 00:00:00 Completed [facility] TDAP 2014-03-23 00:00:00 Completed [facility] TDAP 2014-03-23 00:00:00 Completed [facility] TDAP Unknown Completed [facility] Influenza Virus Vaccine Quad .5 mL IM 6+ MO (FLUZONE/FLULAVAL/F LUARIX) Unknown Completed [facility] TDAP Unknown Completed [facility] Influenza Virus Vaccine Quad .5 mL IM 6+ MO (FLUZONE/FLULAVAL/F LUARIX) Unknown Completed [facility] TDAP Unknown Completed [facility] Influenza Virus Vaccine Quad .5 mL IM 6+ MO (FLUZONE/FLULAVAL/F LUARIX) Unknown Completed [facility] Vital Signs Vital Name Observation Time Observation Value Comments S ourveronica Systolic blood pressure 2024-01-01 21:50:00 130 mm[Hg] [facility] Diastolic blood pressure 2024-01-01 21:50:00 82 mm[Hg] [facility] Heart rate 2024-01-01 21:50:00 129 /min [facility] Body temperature 2024-01-01 21:50:00 36.72 Cynthia [facility] Respiratory rate 2024-01-01 21:50:00 18 /min [facility] Body height 2024-01-01 21:50:00 157.5 cm [facility] Body weight 2024-01-01 21:50:00 62.234 kg [facility] BMI 2024-01-01 21:50:00 25.09 kg/m2 [facility] Systolic blood pressure 2023-07-14 15:01:00 148 mm[Hg] [facility] Diastolic blood pressure 2023-07-14 15:01:00 90 mm[Hg] [facility] Heart rate 2023-07-14 15:00:00 97 /min [facility] Body temperature 2023-07-14 15:00:00 36.22 Cynthia [facility] Respiratory rate 2023-07-14 15:00:00 18 /min [facility] Body height 2023-07-14 15:00:00 154.9 cm [facility] Body weight 2023-07-14 15:00:00 62.596 kg [facility] BMI 2023-07-14 15:00:00 26.07 kg/m2 [facility] BP Systolic 2021-11-18 15:54:00 155 mm[Hg] BP [...] Respiratory Rate 2020-04-06 14:11:00 17.00 /min Procedures Procedure Date / Time Performed Performing Clinicia n Source REFERRAL- REQUEST/RESPONSE 2023-08-05 15:01:51 Doctor Unassigned, [place] [facility] Plan of Care Planned Activity Planned Date Details Comments Source Goal Plan of Care Note [code = 74445-8] Goal Plan of Care Note [code = 78625-2] Goal Plan of Care Note [code = 15902-5] Goal Plan of Care Note [code = 61922-9] Goal Plan of Care Note [code = 67842-0] Goal Plan of Care Note [code = 43405-2] Goal Plan of Care Note [code = 49711-2] Goal Plan of Care Note [code = 21402-4] Goal Plan of Care Note [code = 95199-5] Goal Plan of Care Note [code = 35730-3] Goal Plan of Care Note [code = 76621-8] Goal Plan of Care Note [code = 48798-5] Goal Plan of Care Note [code = 79956-8] Goal Plan of Care Note [code = 86109-8] Goal Plan of Care Note [code = 78761-4] Goal Plan of Care Note [code = 33408-8] Goal Plan of Care Note [code = 60421-0] Goal Plan of Care Note [code = 44860-5] Goal Plan of Care Note [code = 09689-2] Goal Plan of Care Note [code = 68342-4] Goal Plan of Care Note [code = 57634-6] Goal Plan of Care Note [code = 92149-9] Goal Plan of Care Note [code = 82273-7] Goal Plan of Care Note [code = 96377-6] Goal Plan of Care Note [code = 58216-2] Goal Plan of Care Note [code = 33768-2] Goal Plan of Care Note [code = 49531-2] Goal Plan of Care Note [code = 29985-6] Goal Plan of Care Note [code = 60740-9] Goal Plan of Care Note [code = 44323-7] Goal Plan of Care Note [code = 55861-1] Goal Plan of Care Note [code = 99459-9] Goal Plan of Care Note [code = 30617-2] Goal Plan of Care Note [code = 09731-9] Goal Plan of Care Note [code = 31458-9] Goal Plan of Care Note [code = 95335-6] Goal Plan of Care Note [code = 17592-2] Goal Plan of Care Note [code = 71873-8] Goal Plan of Care Note [code = 11850-3] Goal Plan of Care Note [code = 75347-9] Goal Plan of Care Note [code = 25916-9] Goal Plan of Care Note [code = 15439-8] Goal Plan of Care Note [code = 82744-6] Goal Plan of Care Note [code = 73051-2] Goal Plan of Care Note [code = 57104-7] Goal Plan of Care Note [code = 47579-2] Goal Plan of Care Note [code = 21249-7] Goal Plan of Care Note [code = 32461-8] Goal Plan of Care Note [code = 00783-8] Goal Plan of Care Note [code = 24112-2] Goal Plan of Care Note [code = 35341-5] Goal Plan of Care Note [code = 84011-8] Goal Plan of Care Note [code = 62487-8] Goal Plan of Care Note [code = 15300-5] Goal Plan of Care Note [code = 20673-9] Goal Plan of Care Note [code = 49953-6] Goal Plan of Care Note [code = 41010-6] Goal Plan of Care Note [code = 44999-7] Goal Plan of Care Note [code = 92021-6] Goal Plan of Care Note [code = 21581-2] Goal Plan of Care Note [code = 53563-8] Goal Plan of Care Note [code = 65538-7] Goal Plan of Care Note [code = 32586-3] Goal Plan of Care Note [code = 95749-2] Goal Plan of Care Note [code = 27434-0] Goal Plan of Care Note [code = 38399-0] Goal Plan of Care Note [code = 22787-7] Goal Plan of Care Note [code = 27244-9] Goal Plan of Care Note [code = 38130-1] Goal Plan of Care Note [code = 64036-4] Goal Plan of Care Note [code = 04314-9] Goal Plan of Care Note [code = 64400-1] Goal Plan of Care Note [code = 95323-7] Goal Plan of Care Note [code = 49516-1] Goal Plan of Care Note [code = 21369-9] Goal Plan of Care Note [code = 62041-3] Goal Plan of Care Note [code = 06317-2] Goal Plan of Care Note [code = 17099-0] Goal Plan of Care Note [code = 69333-5] Goal Plan of Care Note [code = 13343-5] Goal Plan of Care Note [code = 91313-3] Goal Plan of Care Note [code = 04794-9] Goal Plan of Care Note [code = 61335-7] Goal Plan of Care Note [code = 16985-5] Goal Plan of Care Note [code = 00670-2] Goal Plan of Care Note [code = 13259-2] Goal Plan of Care Note [code = 36534-3] Goal Plan of Care Note [code = 12846-7] Goal Plan of Care Note [code = 30369-4] Goal Plan of Care Note [code = 41468-7] Goal Plan of Care Note [code = 24812-5] Goal Plan of Care Note [code = 87639-0] Goal Plan of Care Note [code = 07847-2] Goal Plan of Care Note [code = 78750-7] Goal Plan of Care Note [code = 50353-7] Goal Plan of Care Note [code = 62783-4] Goal Plan of Care Note [code = 06217-4] Goal Plan of Care Note [code = 90937-1] Goal Plan of Care Note [code = 36976-8] Encounters Start Date/Time End Date/Time Encounter Type Admission Type Attending [facility] Care Facility Care Department Encounter ID Source 2022-09-23 00:00:00 2024-06-16 21:21:12 Sury Beaulieu [facility] & CHILD HEALTH [facility] 1.2.840.114 350.1.13.10 4.2.7.2.686 [id number] [facility] 2023-08-05 00:00:00 2024-04-09 07:32:37 Orders Only Doctor Unassigned, [place] Doctor Unassigned, [place] [facility] 1.2.840.114 350.1.13.10 4.2.7.2.686 [id number] [facility] 2024-01-01 15:45:00 2024-01-01 16:20:40 Outpatient R CHASIDY MAGALLANES VIVIAN [facility] [id number] [facility] 2024-01-01 15:45:00 2024-01-01 16:20:40 Office Visit Chasidy Magallanes [facility] 1.2.840.114 350.1.13.10 4.2.7.2.686 [id number] [facility] 2023-12-24 00:00:00 2023-12-24 14:10:48 Telephone Karine Kennedy [facility] 1.2.840.114 350.1.13.10 4.2.7.2.686 [id number] [facility] 2023-07-29 00:00:00 2023-07-29 15:30:21 Telephone Chasidy Magallanes [facility] 1.2.840.114 350.1.13.10 4.2.7.2.686 [id number] [facility] 2023-07-23 15:33:57 2023-07-23 23:59:00 Outpatient R CHASIDY MAGALLANES [facility] [id number] [facility] 2023-07-23 15:33:57 2023-07-23 23:59:00 Hospital Encounter Chasidy Magallanes [facility] 1..840.114 350.1.13.10 4.2.7.2.686 [id number] [facility] 2023-07-14 11:30:00 2023-07-14 11:30:00 Outpatient R VERONICAFLOYDKARINE BIARD [facility] [id number] [facility] 2023-07-14 09:45:00 2023-07-14 10:40:24 Outpatient R CHASIDY MAGALLANES [facility] [id number] [facility] 2023-07-14 09:45:00 2023-07-14 10:40:24 Office Visit Chasidy Magallanes [facility] 1.2.840.114 350.1.13.10 4.2.7.2.686 [id number] [facility] 2022-08-22 13:00:00 2022-08-22 13:00:00 Outpatient R [facility] [id number] [facility] 2022-07-08 00:00:00 2022-07-08 00:00:00 Telephone Sury Mujica [facility] 1.2.840.114 350.1.13.10 4.2.7.2.686 [id number] [facility] 2022-03-14 11:42:30 2022-03-14 11:42:30 Outpatient SFA [facility] [id number] Jl F Frank 2022-03-13 15:56:56 2022-03-13 15:56:56 Outpatient SFA [facility] 0119 Jl Marie 2021-11-18 00:00:00 2021-11-18 00:00:00 Outpatient Visit [id number] 2021-10-10 00:00:00 2021-10-10 00:00:00 Telephone Sury Mujica [facility] & CHILD [facility] 1.2.840.114 350.1.13.10 4.2.7.2.686 [id number] [facility] 2021-10-08 00:00:00 2021-10-08 00:00:00 Telephone Sury Mujica [facility] & CHILD [facility] ..840.114 350.1.13.10 4.2.7.2.686 [id number] [facility] 2021-09-09 00:00:00 2021-09-09 00:00:00 Outpatient Visit [id number] 2021-08-30 00:00:00 2021-08-30 00:00:00 Outpatient Visit [id number] 2021-08-27 00:00:00 2021-08-27 00:00:00 Telephone Maria Victoria Livingston [facility] & CHILD [facility] ..840.114 350.1.13.10 4.2.7.2.686 [id number] 107 [id number] [facility] 2021-08-16 09:00:00 2021-08-16 09:54:52 Outpatient R SURY MUJICA [facility] [id number] [facility] 2021-08-16 09:00:00 2021-08-16 09:54:52 Office Visit Sury Mujica [facility] & CHILD [facility] 1.0.114 350.1.13.10 4.2.7.2.686 [id number] [facility] 2021-08-16 09:00:00 2021-08-16 09:00:00 Outpatient R SURY MUJICA [facility] [id number] [facility] 2021-08-16 08:30:00 2021-08-16 08:30:00 Outpatient SURY CHOUDHURY [facility] [id number] [facility] 2021-08-16 00:00:00 2021-08-16 00:00:00 Orders Only Doctor Unassigned, [place] [facility] 1..114 350.1.13.10 4.2.7.2.686 [id number] [facility] 2021-07-28 00:00:00 2021-07-28 00:00:00 Refill Sury Mujica [facility] CHILD [facility] 1..114 350.1.13.10 4.2.7.2.686 [id number] 107 [id number] [facility] 2020-06-27 00:00:00 2020-06-27 00:00:00 Telephone Maria Victoria Livingston [facility] & CHILD [facility] 1..114 350.1.13.10 4.2.7.2.686 [id number] 107 [id number] [facility] 2020-05-22 00:00:00 2020-05-22 00:00:00 Refill Sury Mujica [facility] & CHILD [facility] 1.840.114 350.1.13.10 4.2.7.2.686 [id number] 2020-05-22 00:00:00 2020-05-22 00:00:00 Refill Sury Mujica [facility] & CHILD [facility] 1.2.840.114 350.1.13.10 4.2.7.2.686 [id number] [facility] 2020-05-21 00:00:00 2020-05-21 00:00:00 Refill Maria Victoria Livingston [facility] CHILD [facility] 1.2.840.114 350.1.13.10 4.2.7.2.686 [id number] 2020-05-21 00:00:00 2020-05-21 00:00:00 Refill Maria Victoria Livingston [facility] CHILD [facility] 1.2.840.114 350.1.13.10 4.2.7.2.686 [id number] [facility] 2020-04-03 00:00:00 2020-04-03 00:00:00 Outpatient R SURY MUJICA [facility] [id number] [facility] 2020-03-06 00:00:00 2020-03-06 00:00:00 Telephone Sury Mujica [facility] TE[facility] & CHILD [facility] 1.2.840.114 350.1.13.10 4.2.7.2.686 [id number] 2020-03-06 00:00:00 2020-03-06 00:00:00 Telephone Sury Mujica [facility] & CHILD [facility] 1.2.840.114 350.1.13.10 4.2.7.2.686 [id number] [facility] 2020-03-02 09:22:04 2020-03-02 10:49:08 Office Visit Guanako Sury Bender [facility] & CHILD [facility] 1.0.114 350.1.13.10 4.2.7.2.686 [id number] 107 [id number] [facility] 2020-03-02 09:30:00 2020-03-02 09:30:00 Outpatient R SURY MUJICA [facility] [id number] [facility] 2020-03-02 09:30:00 2020-03-02 09:30:00 Outpatient R GUANAKO SURY [facility] [id number] [facility] 2020-03-02 09:00:00 2020-03-02 09:00:00 Outpatient R MARIA VICTORIA LIVINGSTON [facility] [id number] [facility] 2020-03-02 00:00:00 2020-03-02 00:00:00 Orders Only Doctor Unassigned, [place] [facility] 1..114 350.1.13.10 4.2.7.2.686 [id number] [facility] 2020-02-29 00:00:00 2020-02-29 00:00:00 Telephone Maria Victoria Livingston [facility] TE[facility] 1..114 350.1.13.10 4.2.7.2.686 [id number] [facility] 2020-02-29 00:00:00 2020-02-29 00:00:00 Refill Maria Victoria Livingston [facility] TE[facility] & CHILD [facility] 1..114 350.1.13.10 4.2.7.2.686 [id number] [facility] 2019-12-30 00:00:00 2019-12-30 00:00:00 Orders Only Doctor Unassigned, [place] [facility] 1..114 350.1.13.10 4.2.7.2.686 [id number] [facility] 2019-08-02 08:15:00 2019-08-02 08:15:00 Outpatient R SURY MUJICA [facility] [id number] [facility] 2019-08-02 07:45:14 2019-08-02 08:13:52 Office Visit Sury Mujica [facility] TE[facility] & CHILD [facility] 1.2.840.114 350.1.13.10 4.2.7.2.686 [id number] [facility] 2019-07-29 00:00:00 2019-07-29 00:00:00 Telephone Maria Victoria Livingston [facility] TE[facility] 1.2.840.114 350.1.13.10 4.2.7.2.686 [id number] [facility] Results Test Description Test Time Test Comments Results Resul t Comments Source REFERRAL- REQUEST/RESPONSE 2023-08-05 15:01:51 Ordered by an unspecified provider. [facility] LIPID [id number] 06:45:27* Test Item Value Reference Range Interpretation [...] SPECIMENS. FOR MOREINFORMATION, SEE CLIENT ANNOUNCEMENT AT [email or web address] CalcLDL-C RISK RATIO LDL/HDL (test code = 2238) (NOTE) RATIO <3.22 UNABLE TO DONNIE CULATE HEMOGLOBIN [id number] 03:11:31* Test Item Value Reference Range Interpretation Comme nts HEMOGLOBIN A1c (test code = 23782) 7.6 % 4.2-5.6 H [employer] GUIDELINES FOR HGB A1C: [...] INDICATED, ALL TESTING PERFORMED [facility] [employer] [address] [place] [address] STAFF CYTOTECHNOLOGIST: MARLENE GONZALEZ M.D. [place] NUMBER [id number] [place]. [id number] CBC W/AUTO DIFF WITH [id number] 02:40:09* Test Item Value Reference Range Interpretation [...] 0.00-0.10 ABS NUCLEATED RBCS (test code = 96384) 0.00 K/UL 0.00-0.11 LIPID [id number] 04:31:34* Test Item Value Reference Range Interpretation [...] SPECIMENS. FOR MOREINFORMATION, SEE CLIENT ANNOUNCEMENT AT [email or web address] CalcLDL-C RISK RATIO LDL/HDL (test code = 2238) (NOTE) RATIO <3.22 UNABLE TO DONNIE CULATE COMPREHENSIVE METABOLIC [id number] 04:31:34* Test Item Value Reference Range Interpretation [...] 20 U/L 9-40 ALT (test code = 2218) 25 U/L 5-40 UNLESS OTHERWISE INDICATED, ALL TESTING PERFORMED [facility] [employer] [address] [place] [address] STAFF CYTOTECHNOLOGIST: MARLENE GONZALEZ M.D. [place] NUMBER [id number] [facility] [place]. [id number] HEMOGLOBIN [id number] 03:56:58* Test Item Value Reference Range Interpretation Comme nts HEMOGLOBIN A1c (test code = 33013) 7.6 % 4.2-5.6 H [employer] GUIDELINES FOR HGB A1C: [...] CONSIDER ALTERNATE TESTING OR LABORATORY CONSULTATION. LIPID [id number] 00:00:00* Test Item Value Reference Range Interpretation Comme nts CHOLESTEROL (test code = 2210) 289 MG/DL TRIGLYCERIDES (test code = 2232) 1152 MG/DL HDL CHOLESTEROL (test code = 2220) 29 MG/DL CALC LDL CHOL (test code = 2237) (NOTE) MG/DL RISK RATIO LDL/HDL (test cod e = 2238) (NOTE) RATIO HEMOGLOBIN [id number] 00:00:00* Test Item Value Reference Range Interpretation Comme nts HEMOGLOBIN A1c (test code = 99559) 7.6 % COMPREHENSIVE METABOLIC [id number] 00:00:00* Test Item Value Reference Range Interpretation Comme nts GLUCOSE (test code = 2217) 103 MG/DL BUN (test code = 2208) 7 MG/DL CREATININE (test code = 2214) 0.53 MG/DL eGFR (2020 CKD-EPI) (test code = 14115) 114 ML/MIN/1.73 CALC BUN/CREAT (test code = [...] (test code = 2219) 25 U/L LIPID [id number] 00:00:00* Test Item Value Reference Range Interpretation Comme nts CHOLESTEROL (test code = 2210) 289 MG/DL TRIGLYCERIDES (test code = 2232) 1152 MG/DL HDL CHOLESTEROL (test code = 2220) 29 MG/DL CALC LDL CHOL (test code = 2237) (NOTE) MG/DL RISK RATIO LDL/HDL (test cod e = 2238) (NOTE) RATIO HEMOGLOBIN [id number] 00:00:00* Test Item Value Reference Range Interpretation Comme nts HEMOGLOBIN A1c (test code = 66543) 7.6 % COMPREHENSIVE METABOLIC [id number] 00:00:00* Test Item Value Reference Range Interpretation Comme nts GLUCOSE (test code = 2217) 103 MG/DL BUN (test code = 2208) 7 MG/DL CREATININE (test code = 2214) 0.53 MG/DL eGFR (2020 CKD-EPI) (test code = 23913) 114 ML/MIN/1.73 CALC BUN/CREAT (test code = [...] = 2219) 25 U/L ALBUMIN/CREATININE RATIO, URINE, [id number] 06:08:56* Test Item Value Reference Range Interpretation Comme nts CREATININE, URINE, RANDOM (test code = 2072) 170.9 MG/DL NOT ESTAB ALBUMIN, URINE, RANDOM (test code = 87961) 45.7 MG/DL NOT ESTAB CALC ALBUMIN/CREAT, RND (test code = 35657) 267 MG/G <30 H Note: Albumin/Creatinine ratio reference interval reflects ADA and NKF guidelines. VITAMIN D, 25 [id number] 04:23:26* Test Item Value Reference Range Interpretation [...] . . NG/ML 30-100 MICROALBUMIN/CREATININE, RANDOM AND [id number] 00:00:00* Test Item Value Reference Range Interpretation Comme nts CREATININE, URINE, RANDOM (t est code = 207) 170.9 MG/DL ALBUMIN, URINE, RANDOM (test code = 34220) 45.7 MG/DL CALC ALBUMIN/CREAT, RND (monique t code = 78716) 267 MG/G VITAMIN D, 25 [id number] 00:00:00* Test Item Value Reference Range Interpretation Comme nts VITAMIN D, 25 OH (test code = 4958) 9 NG/ML MICROALBUMIN/CREATININE, RANDOM AND [id number] 00:00:00* Test Item Value Reference Range Interpretation Comme nts CREATININE, URINE, RANDOM (t est code = 207) 170.9 MG/DL ALBUMIN, URINE, RANDOM (test code = 96031) 45.7 MG/DL CALC ALBUMIN/CREAT, RND (monique t code = 03609) 267 MG/G VITAMIN D, 25 [id number] 00:00:00* Test Item Value Reference Range Interpretation Comme nts VITAMIN D, 25 OH (test code = 4958) 9 NG/ML MICROALBUMIN/CREATININE, RANDOM AND [id number] 00:00:00* Test Item Value Reference Range Interpretation Comme nts CREATININE, URINE, RANDOM (t est code = 207) 170.9 MG/DL ALBUMIN, URINE, RANDOM (test code = 09273) 45.7 MG/DL CALC ALBUMIN/CREAT, RND (monique t code = 38098) 267 MG/G VITAMIN D, 25 [id number] 00:00:00* Test Item Value Reference Range Interpretation Comme nts VITAMIN D, 25 OH (test code = 4958) 9 NG/ML LIPID [id number] 22:05:35* Test Item Value Reference Range Interpretation [...] SPECIMENS. FOR MOREINFORMATION, SEE CLIENT ANNOUNCEMENT AT [email or web address] CalcLDL-C RISK RATIO LDL/HDL (test code = 2238) (NOTE) RATIO <3.22 UNABLE TO DONNIE CULATE COMPREHENSIVE METABOLIC [id number] 22:05:35* Test Item Value Reference Range Interpretation Comme nts GLUCOSE (test code = 2217) 240 MG/DL 70-99 H BUN (test code = 2208) 9 MG/DL 6-20 CREATININE (test code = 2214) 0.47 MG/DL 0.60-1.30 L eGFR (2020 CKD-EPI) (test code = 43331) 118 ML/MIN/1.73 >60 CALC BUN/CREAT (test code = 2235) 19 RATIO 6-28 SODIUM (test code = 223) 134 MEQ/L 133-146 POTASSIUM (test code = 2228) 4.4 MEQ/L 3.5-5.4 CHLORIDE (test code = 2215) 93 MEQ/L 95-107 L CARBON DIOXIDE (test code = 2206) 19 MEQ/L 19-31 CALCIUM (test code = 2209) 9.5 MG/DL 8.5-10.5 PROTEIN, TOTAL (test code = 222) 6.9 G/DL 6.1-8.3 ALBUMIN (test code = [...] = 221) 49 U/L 5-40 H IRON, [id number] 22:05:35* Test Item Value Reference Range Interpretation Comme nts IRON, SERUM (test code = 2221) 91 UG/DL 37-145 UNLESS OTHERWISE INDICATED, ALL TESTING PERFORMED [facility] [employer] [address] [place] [address] STAFF CYTOTECHNOLOGIST: MARLENE GONZALEZ M.D. CLIA NUMBER [id number] [facility] [place]. [id number] VITAMIN [id number] 05:31:10* Test Item Value Reference Range Interpretation Comme nts VITAMIN B-12 (test code = 2840) >2000 PG/ML 200-950 H COMPREHENSIVE METABOLIC [id number] 00:00:00* Test Item Value Reference Range Interpretation Comme nts GLUCOSE (test code = 2216) 240 MG/DL BUN (test code = 2207) 9 MG/DL CREATININE (test code = 2214) 0.47 MG/DL eGFR (2020 CKD-EPI) (test code = 55582) 118 ML/MIN/1.73 CALC BUN/CREAT (test code = 2235) 19 RATIO SODIUM (test code = 2231) 134 MEQ/L POTASSIUM (test code = 2228) 4.4 MEQ/L CHLORIDE (test code = 2215) 93 MEQ/L CARBON DIOXIDE (test code = 2206) 19 MEQ/L CALCIUM (test code = 2209) 9.5 MG/DL PROTEIN, TOTAL (test code = 222) 6.9 G/DL ALBUMIN (test code = 2201) 4.3 G/DL CALC GLOBULIN (test code = 2240) 2.6 G/DL CALC A/G RATIO (test code = 2234) 1.7 RATIO BILIRUBIN, TOTAL (test code = 2207) 0.3 MG/DL ALKALINE PHOSPHATASE (test code = 2204) 94 U/L AST (test code = 2218) 9 U/L ALT (test code = 2219) 49 U/L VITAMIN [id number] 00:00:00* Test Item Value Reference Range Interpretation Comme nts VITAMIN B-12 (test code = 2840) >2000 PG/ML IRON, [id number] 00:00:00* Test Item Value Reference Range Interpretation Comme nts IRON, SERUM (test code = 2222) 91 UG/DL LIPID [id number] 00:00:00* Test Item Value Reference Range Interpretation Comme nts CHOLESTEROL (test code = 2210) 814 MG/DL TRIGLYCERIDES (test code = 2232) 549 MG/DL HDL CHOLESTEROL (test code = 2220) 20 MG/DL CALC LDL CHOL (test code = 2237) (NOTE) MG/DL RISK RATIO LDL/HDL (test cod e = 2238) (NOTE) RATIO COMPREHENSIVE METABOLIC [id number] 00:00:00* Test Item Value Reference Range Interpretation Comme nts GLUCOSE (test code = 2217) 240 MG/DL BUN (test code = 2208) 9 MG/DL CREATININE (test code = 2214) 0.47 MG/DL eGFR (2020 CKD-EPI) (test code = 87202) 118 ML/MIN/1.73 CALC BUN/CREAT (test code = [...] (test code = 2219) 49 U/L VITAMIN [id number] 00:00:00* Test Item Value Reference Range Interpretation Comme nts VITAMIN B-12 (test code = 2840) >2000 PG/ML IRON, [id number] 00:00:00* Test Item Value Reference Range Interpretation Comme nts IRON, SERUM (test code = 2222) 91 UG/DL LIPID [id number] 00:00:00* Test Item Value Reference Range Interpretation Comme nts CHOLESTEROL (test code = 2210) 814 MG/DL TRIGLYCERIDES (test code = 2232) 549 MG/DL HDL CHOLESTEROL (test code = 2220) 20 MG/DL CALC LDL CHOL (test code = 2237) (NOTE) MG/DL RISK RATIO LDL/HDL (test cod e = 2238) (NOTE) RATIO COMPREHENSIVE METABOLIC [id number] 00:00:00* Test Item Value Reference Range Interpretation Comme nts GLUCOSE (test code = 2217) 240 MG/DL BUN (test code = 2208) 9 MG/DL CREATININE (test code = 2214) 0.47 MG/DL eGFR (2020 CKD-EPI) (test code = 12464) 118 ML/MIN/1.73 CALC BUN/CREAT (test code = [...] (test code = 2219) 49 U/L VITAMIN [id number] 00:00:00* Test Item Value Reference Range Interpretation Comme nts VITAMIN B-12 (test code = 2840) >2000 PG/ML IRON, [id number] 00:00:00* Test Item Value Reference Range Interpretation Comme nts IRON, SERUM (test code = 2222) 91 UG/DL LIPID [id number] 00:00:00* Test Item Value Reference Range Interpretation Comme nts CHOLESTEROL (test code = 2210) 814 MG/DL TRIGLYCERIDES (test code = 2232) 549 MG/DL HDL CHOLESTEROL (test code = 2220) 20 MG/DL CALC LDL CHOL (test code = 2237) (NOTE) MG/DL RISK RATIO LDL/HDL (test cod e = 2238) (NOTE) RATIO CBC W/AUTO DIFF WITH [id number] 03:36:44* Test Item Value Reference Range Interpretation [...] = 1065) 0.0 /100 WBC'S See_Comment [Automated Platform9 Systemsa ge] The system which generated this result [...] 0.00-0.10 ABS NUCLEATED RBCS (test code = 13783) 0.02 K/UL 0.00-0.11 HEMOGLOBIN [id number] 03:25:41* Test Item Value Reference Range Interpretation Comme nts HEMOGLOBIN A1c (test code = 73531) 8.7 % 4.2-5.6 H [employer] GUIDELINES FOR HGB A1C: [...] CONSIDER ALTERNATE TESTING OR LABORATORY CONSULTATION. HEMOGLOBIN [id number] 00:00:00* Test Item Value Reference Range Interpretation Comme nts HEMOGLOBIN A1c (test code = 35585) 8.7 % CBC W/AUTO [id number] 00:00:00* Test Item Value Reference Range Interpretation [...] ABS NUCLEATED RBCS (test cod e = 10363) 0.02 K/UL HEMOGLOBIN [id number] 00:00:00* Test Item Value Reference Range Interpretation Comme nts HEMOGLOBIN A1c (test code = 02300) 8.7 % CBC W/AUTO [id number] 00:00:00* Test Item Value Reference Range Interpretation [...] ABS NUCLEATED RBCS (test cod e = 57877) 0.02 K/UL HEMOGLOBIN [id number] 00:00:00* Test Item Value Reference Range Interpretation Comme nts HEMOGLOBIN A1c (test code = 12097) 8.7 % CBC W/AUTO [id number] 00:00:00* Test Item Value Reference Range Interpretation [...] ABS NUCLEATED RBCS (test cod e = 12336) 0.02 K/UL [id number] 04:11:20* Test Item Value Reference Range Interpretation Comme nts LIPASE (test code = 2058) 18 U/L 13-60 [id number] 04:11:20* Test Item Value Reference Range Interpretation Comme nts AMYLASE (test code = 2205) 41 U/L 28-100 UNLESS OTHERWISE INDICATED, ALL TESTING PERFORMED [facility] [employer] [address] [place] [address] STAFF CYTOTECHNOLOGIST: MARLENE GONZALEZ M.D. CLIA NUMBER [id number] [facility] [place]. [id number] 00:00:00* Test Item Value Reference Range Interpretation Comme nts AMYLASE (test code = 2205) 41 U/L [id number] 00:00:00* Test Item Value Reference Range Interpretation Comme nts LIPASE (test code = 2058) 18 U/L [id number] 00:00:00* Test Item Value Reference Range Interpretation Comme nts AMYLASE (test code = 2205) 41 U/L [id number] 00:00:00* Test Item Value Reference Range Interpretation Comme nts LIPASE (test code = 2058) 18 U/L [id number] 00:00:00* Test Item Value Reference Range Interpretation Comme nts AMYLASE (test code = 2205) 41 U/L [id number] 00:00:00* Test Item Value Reference Range Interpretation Comme nts LIPASE (test code = 2058) 18 U/L HEMOGLOBIN [id number] 05:11:03* Test Item Value Reference Range Interpretation Comme nts HEMOGLOBIN A1c (test code = 62305) 8.2 % 4.2-5.6 H [employer] GUIDELINES FOR HGB A1C: [...] ALTERNATE TESTING OR LABORATORY CONSULTATION. COMPREHENSIVE METABOLIC [id number] 04:59:22* Test Item Value Reference Range Interpretation [...] 111 U/L 40-120 AST (test code = 8) 23 U/L 9-40 ALT (test code = 2218) <5 U/L 5-40 L LIPID [id number] 04:59:22* Test Item Value Reference Range Interpretation Comme nts CHOLESTEROL (test code = 221) 539 MG/DL <200 H TRIGLYCERIDES (test code = 2232) 2237 MG/DL <150 H [facility]IMEN [facility] RES[facility] RECHECKED AND VERIFIED HDL CHOLESTEROL (test code = 2219) 25 MG/DL >39 L CALC LDL CHOL [...] SPECIMENS. FOR MOREINFORMATION, SEE CLIENT ANNOUNCEMENT AT [email or web address] CalcLDL-C RISK RATIO LDL/HDL (test code = 2238) 7.20 RATIO <3.22 H UNABLE TO DONNIE CULATE UNLESS OTHERWISE INDICATED, ALL TESTING PERFORMED [facility] [employer] [address] [place] [address] STAFF CYTOTECHNOLOGIST: MARLENE GONZALEZ M.D. CLIA NUMBER [id number] [facility] [place]. [id number] CBC W/AUTO DIFF WITH [id number] 04:14:18* Test Item Value Reference Range Interpretation [...] = 1065) 0.0 /100 WBC'S See_Comment [Automated Platform9 Systemsa ge] The system which generated this result [...] 0.00-0.10 ABS NUCLEATED RBCS (test code = 23850) 0.00 K/UL 0.00-0.11 COMPREHENSIVE METABOLIC [id number] 00:00:00* Test Item Value Reference Range Interpretation Comme nts GLUCOSE (test code = 2217) 216 MG/DL BUN (test code = 2208) 7 MG/DL CREATININE (test code = 2214) 0.35 MG/DL eGFR (2020 CKD-EPI) (test code = 87107) 127 ML/MIN/1.73 CALC BUN/CREAT (test code = [...] (test code = 2219) <5 U/L HEMOGLOBIN [id number] 00:00:00* Test Item Value Reference Range Interpretation Comme nts HEMOGLOBIN A1c (test code = 90875) 8.2 % LIPID [id number] 00:00:00* Test Item Value Reference Range Interpretation Comme nts CHOLESTEROL (test code = 2210) 539 MG/DL TRIGLYCERIDES (test code = 2232) 2237 MG/DL HDL CHOLESTEROL (test code = 2220) 25 MG/DL CALC LDL CHOL (test code = 2237) (NOTE) MG/DL RISK RATIO LDL/HDL (test cod e = 2238) 7.20 RATIO CBC W/AUTO [id number] 00:00:00* Test Item Value Reference Range Interpretation [...] ABS NUCLEATED RBCS (test cod e = 63034) 0.00 K/UL COMPREHENSIVE METABOLIC [id number] 00:00:00* Test Item Value Reference Range Interpretation Comme nts GLUCOSE (test code = 2217) 216 MG/DL BUN (test code = 2208) 7 MG/DL CREATININE (test code = 2214) 0.35 MG/DL eGFR (2020 CKD-EPI) (test code = 26145) 127 ML/MIN/1.73 CALC BUN/CREAT (test code = [...] (test code = 2219) <5 U/L HEMOGLOBIN [id number] 00:00:00* Test Item Value Reference Range Interpretation Comme nts HEMOGLOBIN A1c (test code = 56366) 8.2 % LIPID [id number] 00:00:00* Test Item Value Reference Range Interpretation Comme nts CHOLESTEROL (test code = 2210) 539 MG/DL TRIGLYCERIDES (test code = 2232) 2237 MG/DL HDL CHOLESTEROL (test code = 2220) 25 MG/DL CALC LDL CHOL (test code = 2237) (NOTE) MG/DL RISK RATIO LDL/HDL (test cod e = 2238) 7.20 RATIO CBC W/AUTO [id number] 00:00:00* Test Item Value Reference Range Interpretation [...] ABS NUCLEATED RBCS (test cod e = 16169) 0.00 K/UL COMPREHENSIVE METABOLIC [id number] 00:00:00* Test Item Value Reference Range Interpretation Comme nts GLUCOSE (test code = 2217) 216 MG/DL BUN (test code = 2208) 7 MG/DL CREATININE (test code = 2214) 0.35 MG/DL eGFR (2020 CKD-EPI) (test code = 09544) 127 ML/MIN/1.73 CALC BUN/CREAT (test code = [...] (test code = 2219) <5 U/L HEMOGLOBIN [id number] 00:00:00* Test Item Value Reference Range Interpretation Comme nts HEMOGLOBIN A1c (test code = 62995) 8.2 % LIPID [id number] 00:00:00* Test Item Value Reference Range Interpretation Comme nts CHOLESTEROL (test code = 2210) 539 MG/DL TRIGLYCERIDES (test code = 2232) 2237 MG/DL HDL CHOLESTEROL (test code = 2220) 25 MG/DL CALC LDL CHOL (test code = 2237) (NOTE) MG/DL RISK RATIO LDL/HDL (test cod e = 2238) 7.20 RATIO CBC W/AUTO [id number] 00:00:00* Test Item Value Reference Range Interpretation [...] ABS NUCLEATED RBCS (test cod e = 95336) 0.00 K/UL [id number] 00:00:00* Test Item Value Reference Range Interpretation Comme nts LIPASE (test code = 2057) 14 U/L [id number] 00:00:00* Test Item Value Reference Range Interpretation Comme nts AMYLASE (test code = 5) 44 U/L [id number] 00:00:00* Test Item Value Reference Range Interpretation Comme nts LIPASE (test code = 2057) 14 U/L [id number] 00:00:00* Test Item Value Reference Range Interpretation Comme nts AMYLASE (test code = 2205) 44 U/L [id number] 00:00:00* Test Item Value Reference Range Interpretation Comme nts LIPASE (test code = 2058) 14 U/L [id number] 00:00:00* Test Item Value Reference Range Interpretation Comme nts AMYLASE (test code = 2205) 44 U/L LIPID [id number] 00:00:00* Test Item Value Reference Range Interpretation Comme nts CHOLESTEROL (test code = 2210) 346 MG/DL TRIGLYCERIDES (test code = 2232) 1167 MG/DL HDL CHOLESTEROL (test code = 2220) 37 MG/DL CALC LDL CHOL (test code = 2237) (NOTE) MG/DL RISK RATIO LDL/HDL (test cod e = 2238) (NOTE) RATIO COMPREHENSIVE METABOLIC [id number] 00:00:00* Test Item Value Reference Range Interpretation Comme nts GLUCOSE (test code = 2217) 127 MG/DL BUN (test code = 2208) 7 MG/DL CREATININE (test code = 2214) 0.53 MG/DL eGFR AMER. (test cod e = 75950) 132 ML/MIN/1.73 eGFR NON- AMER. (test code = 18817) 114 ML/MIN/1.73 CALC BUN/CREAT (test code = [...] (test code = 2219) 12 U/L LIPID [id number] 00:00:00* Test Item Value Reference Range Interpretation Comme nts CHOLESTEROL (test code = 2210) 346 MG/DL TRIGLYCERIDES (test code = 2232) 1167 MG/DL HDL CHOLESTEROL (test code = 2220) 37 MG/DL CALC LDL CHOL (test code = 2237) (NOTE) MG/DL RISK RATIO LDL/HDL (test cod e = 2238) (NOTE) RATIO COMPREHENSIVE METABOLIC [id number] 00:00:00* Test Item Value Reference Range Interpretation Comme nts GLUCOSE (test code = 2217) 127 MG/DL BUN (test code = 2208) 7 MG/DL CREATININE (test code = 2214) 0.53 MG/DL eGFR AMER. (test cod e = 14921) 132 ML/MIN/1.73 eGFR NON- AMER. (test code = 87587) 114 ML/MIN/1.73 CALC BUN/CREAT (test code = [...] (test code = 2219) 12 U/L LIPID [id number] 00:00:00* Test Item Value Reference Range Interpretation Comme nts CHOLESTEROL (test code = 2210) 346 MG/DL TRIGLYCERIDES (test code = 2232) 1167 MG/DL HDL CHOLESTEROL (test code = 2220) 37 MG/DL CALC LDL CHOL (test code = 2237) (NOTE) MG/DL RISK RATIO LDL/HDL (test cod e = 2238) (NOTE) RATIO COMPREHENSIVE METABOLIC [id number] 00:00:00* Test Item Value Reference Range Interpretation Comme nts GLUCOSE (test code = 2217) 127 MG/DL BUN (test code = 2208) 7 MG/DL CREATININE (test code = 2214) 0.53 MG/DL eGFR AMER. (test cod e = 70383) 132 ML/MIN/1.73 eGFR NON- AMER. (test code = 53253) 114 ML/MIN/1.73 CALC BUN/CREAT (test code = [...] (test code = 2219) 12 U/L HEMOGLOBIN [id number] 00:00:00* Test Item Value Reference Range Interpretation Comme nts HEMOGLOBIN A1c (test code = 61151) 7.8 % HEMOGLOBIN [id number] 00:00:00* Test Item Value Reference Range Interpretation Comme nts HEMOGLOBIN A1c (test code = 06924) 7.8 % HEMOGLOBIN [id number] 00:00:00* Test Item Value Reference Range Interpretation Comme nts HEMOGLOBIN A1c (test code = 54794) 7.8 % CBC W/AUTO [id number] 00:00:00* Test Item Value Reference Range Interpretation [...] (test code = 1015) 270 K/UL HEMOGLOBIN [id number] 00:00:00* Test Item Value Reference Range Interpretation Comme nts HEMOGLOBIN A1c (test code = 13401) 8.8 % COMPREHENSIVE METABOLIC [id number] 00:00:00* Test Item Value Reference Range Interpretation Comme nts GLUCOSE (test code = 2217) 236 MG/DL BUN (test code = 2208) 9 MG/DL CREATININE (test code = 2214) 0.47 MG/DL eGFR AMER. (test cod e = 69327) 137 ML/MIN/1.73 eGFR NON- AMER. (test code = 34011) 118 ML/MIN/1.73 CALC BUN/CREAT (test code = [...] ALT (test code = 2219) <5 U/L [id number] 00:00:00* Test Item Value Reference Range Interpretation Comme nts TSH, THIRD GENERATION (test code = 2821) 1.060 UIU/ML MICROALBUMIN/CREATININE, RANDOM AND [id number] 00:00:00* Test Item Value Reference Range Interpretation Comme nts CREATININE, URINE, CONC. (te st code = 2072) 83.5 MG/DL ALBUMIN, URINE, RANDOM (test code = 90275) 3.0 MG/DL CALC ALBUMIN/CREAT, RND (monique t code = 75712) 36 MG/G VITAMIN D, 25 [id number] 00:00:00* Test Item Value Reference Range Interpretation Comme nts VITAMIN D, 25 OH (test code = 4958) 12 NG/ML CBC W/AUTO [id number] 00:00:00* Test Item Value Reference Range Interpretation [...] (test code = 1015) 270 K/UL HEMOGLOBIN [id number] 00:00:00* Test Item Value Reference Range Interpretation Comme nts HEMOGLOBIN A1c (test code = 34126) 8.8 % COMPREHENSIVE METABOLIC [id number] 00:00:00* Test Item Value Reference Range Interpretation Comme nts GLUCOSE (test code = 2217) 236 MG/DL BUN (test code = 2208) 9 MG/DL CREATININE (test code = 2214) 0.47 MG/DL eGFR AMER. (test cod e = 85658) 137 ML/MIN/1.73 eGFR NON- AMER. (test code = 35971) 118 ML/MIN/1.73 CALC BUN/CREAT (test code = [...] ALT (test code = 2219) <5 U/L [id number] 00:00:00* Test Item Value Reference Range Interpretation Comme [facility] TSH, THIRD GENERATION (test code = 2821) 1.060 UIU/ML MICROALBUMIN/CREATININE, RANDOM AND [id number] 00:00:00* Test Item Value Reference Range Interpretation Comme [facility] CREATININE, URINE, CONC. (te st code = 2072) 83.5 MG/DL ALBUMIN, URINE, RANDOM (test code = 26905) 3.0 MG/DL CALC ALBUMIN/CREAT, RND (monique t code = 05226) 36 MG/G VITAMIN D, 25 [id number] 00:00:00* Test Item Value Reference Range Interpretation Comme [facility] VITAMIN D, 25 OH (test code = 4958) 12 NG/ML CBC W/AUTO [id number] 00:00:00* Test Item Value Reference Range Interpretation Comme [facility] WBC (test code = 1001) 8.7 [...] (test code = 1015) 270 K/UL HEMOGLOBIN [id number] 00:00:00* Test Item Value Reference Range Interpretation Comme [facility] HEMOGLOBIN A1c (test code = 43874) 8.8 % COMPREHENSIVE METABOLIC [id number] 00:00:00* Test Item Value Reference Range Interpretation Comme nts GLUCOSE (test code = 2217) 236 MG/DL BUN (test code = 2208) 9 MG/DL CREATININE (test code = 2214) 0.47 MG/DL eGFR AMER. (test cod e = 81599) 137 ML/MIN/1.73 eGFR NON- AMER. (test code = 20704) 118 ML/MIN/1.73 CALC BUN/CREAT (test code = [...] ALT (test code = 2219) <5 U/L [id number] 00:00:00* Test Item Value Reference Range Interpretation Comme [facility] TSH, THIRD GENERATION (test code = 2821) 1.060 UIU/ML MICROALBUMIN/CREATININE, RANDOM AND [id number] 00:00:00* Test Item Value Reference Range Interpretation Comme [facility] CREATININE, URINE, CONC. (te st code = 2072) 83.5 MG/DL ALBUMIN, URINE, RANDOM (test code = 19633) 3.0 MG/DL CALC ALBUMIN/CREAT, RND (monique t code = 16367) 36 MG/G VITAMIN D, 25 [id number] 00:00:00* Test Item Value Reference Range Interpretation Comme nts VITAMIN D, 25 OH (test code = 4958) 12 NG/ML SARS-CoV-2 (COVID-19) by RT-PCR (HIGH RISK)2020-03-24 00:00:00* Test Item Value Reference Range Interpretation Comme nts SARS-CoV-2 INTERPRETATION (t est code = 40229) NEGATIVE SOURCE (test code = 05664) NOT SPECIFIED SARS-CoV-2 (COVID-19) by RT-PCR (HIGH RISK)2020-03-24 00:00:00* Test Item Value Reference Range Interpretation Comme nts SARS-CoV-2 INTERPRETATION (t est code = 46502) NEGATIVE SOURCE (test code = 70836) NOT SPECIFIED SARS-CoV-2 (COVID-19) by RT-PCR (HIGH RISK)2020-03-24 00:00:00* Test Item Value Reference Range Interpretation Comme nts SARS-CoV-2 INTERPRETATION (t est code = 81531) NEGATIVE SOURCE (test code = 21477) NOT SPECIFIED LIPID [id number] 00:00:00* Test Item Value Reference Range Interpretation Comme nts CHOLESTEROL (test code = 2210) 235 MG/DL TRIGLYCERIDES (test code = 2232) 420 MG/DL HDL CHOLESTEROL (test code = 2220) 42 MG/DL CALC LDL CHOL (test code = 2237) (NOTE) MG/DL RISK RATIO LDL/HDL (test cod e = 2238) (NOTE) RATIO LIPID [id number] 00:00:00* Test Item Value Reference Range Interpretation Comme nts CHOLESTEROL (test code = 2210) 235 MG/DL TRIGLYCERIDES (test code = 2232) 420 MG/DL HDL CHOLESTEROL (test code = 2220) 42 MG/DL CALC LDL CHOL (test code = 2237) (NOTE) MG/DL RISK RATIO LDL/HDL (test cod e = 2238) (NOTE) RATIO LIPID [id number] 00:00:00* Test Item Value Reference Range Interpretation Comme nts CHOLESTEROL (test code = 2210) 235 MG/DL TRIGLYCERIDES (test code = 2232) 420 MG/DL HDL CHOLESTEROL (test code = 2220) 42 MG/DL CALC LDL CHOL (test code = 2237) (NOTE) MG/DL RISK RATIO LDL/HDL (test cod e = 2238) (NOTE) RATIO LIPID [id number] 00:00:00* Test Item Value Reference Range Interpretation Comme nts CHOLESTEROL (test code = 2210) 500 MG/DL TRIGLYCERIDES (test code = 2232) 2793 MG/DL HDL CHOLESTEROL (test code = 2220) 25 MG/DL CALC LDL CHOL (test code = 2237) (NOTE) MG/DL RISK RATIO LDL/HDL (test cod e = 2238) (NOTE) RATIO COMPREHENSIVE METABOLIC [id number] 00:00:00* Test Item Value Reference Range Interpretation Comme nts GLUCOSE (test code = 2217) 287 MG/DL BUN (test code = 2208) 7 MG/DL CREATININE (test code = 2214) 0.57 MG/DL eGFR AMER. (test cod e = 24194) 129 ML/MIN/1.73 eGFR NON- AMER. (test code = 56000) 111 ML/MIN/1.73 CALC BUN/CREAT (test code = [...] (test code = 2219) <5 U/L HEMOGLOBIN [id number] 00:00:00* Test Item Value Reference Range Interpretation Comme nts HEMOGLOBIN A1c (test code = 39607) 9.2 % LIPID [id number] 00:00:00* Test Item Value Reference Range Interpretation Comme nts CHOLESTEROL (test code = 2210) 500 MG/DL TRIGLYCERIDES (test code = 2232) 2793 MG/DL HDL CHOLESTEROL (test code = 2220) 25 MG/DL CALC LDL CHOL (test code = 2237) (NOTE) MG/DL RISK RATIO LDL/HDL (test cod e = 2238) (NOTE) RATIO COMPREHENSIVE METABOLIC [id number] 00:00:00* Test Item Value Reference Range Interpretation Comme nts GLUCOSE (test code = 2217) 287 MG/DL BUN (test code = 2208) 7 MG/DL CREATININE (test code = 2214) 0.57 MG/DL eGFR AMER. (test cod e = 88696) 129 ML/MIN/1.73 eGFR NON- AMER. (test code = 92525) 111 ML/MIN/1.73 CALC BUN/CREAT (test code = [...] (test code = 2219) <5 U/L HEMOGLOBIN [id number] 00:00:00* Test Item Value Reference Range Interpretation Comme nts HEMOGLOBIN A1c (test code = 38633) 9.2 % LIPID [id number] 00:00:00* Test Item Value Reference Range Interpretation Comme nts CHOLESTEROL (test code = 2210) 500 MG/DL TRIGLYCERIDES (test code = 2232) 2793 MG/DL HDL CHOLESTEROL (test code = 2220) 25 MG/DL CALC LDL CHOL (test code = 2237) (NOTE) MG/DL RISK RATIO LDL/HDL (test cod e = 2238) (NOTE) RATIO COMPREHENSIVE METABOLIC [id number] 00:00:00* Test Item Value Reference Range Interpretation Comme nts GLUCOSE (test code = 2217) 287 MG/DL BUN (test code = 2208) 7 MG/DL CREATININE (test code = 2214) 0.57 MG/DL eGFR AMER. (test cod e = 27280) 129 ML/MIN/1.73 eGFR NON- AMER. (test code = 35951) 111 ML/MIN/1.73 CALC BUN/CREAT (test code = [...] (test code = 2219) <5 U/L HEMOGLOBIN [id number] 00:00:00* Test Item Value Reference Range Interpretation Comme nts HEMOGLOBIN A1c (test code = 93779) 9.2 % SARS-CoV-2 (COVID-19) by RT-PCR (HIGH RISK)2019-12-14 00:00:00* Test Item Value Reference Range Interpretation Comme nts SARS-CoV-2 INTERPRETATION (test code = 38648) Positive SOURCE (test code = 69313) NASOPHARYNGEA L_SWAB _IN_VTM__UTM SARS-CoV-2 (COVID-19) by RT-PCR (HIGH RISK)2019-12-14 00:00:00* Test Item Value Reference Range Interpretation Comme nts SARS-CoV-2 INTERPRETATION (test code = 69866) Positive SOURCE (test code = 96555) NASOPHARYNGEA L_SWAB _IN_VTM__UTM SARS-CoV-2 (COVID-19) by RT-PCR (HIGH RISK)2019-12-14 00:00:00* Test Item Value Reference Range Interpretation Comme nts SARS-CoV-2 INTERPRETATION (test code = 34686) Positive SOURCE (test code = 43049) NASOPHARYNGEA L_SWAB _IN_VTM__UTM SARS-CoV-2 (COVID-19) by RT-PCR (HIGH RISK)2019-12-01 00:00:00* Test Item Value Reference Range Interpretation Comme nts SARS-CoV-2 INTERPRETATION (test code = 94707) Positive SOURCE (test code = 63635) Nasal_Swab_in _VTM__ UTM SARS-CoV-2 (COVID-19) by RT-PCR (HIGH RISK)2019-12-01 00:00:00* Test Item Value Reference Range Interpretation Comme nts SARS-CoV-2 INTERPRETATION (test code = 90120) Positive SOURCE (test code = 00603) Nasal_Swab_in _VTM__ UTM SARS-CoV-2 (COVID-19) by RT-PCR (HIGH RISK)2019-12-01 00:00:00* Test Item Value Reference Range Interpretation Comme nts SARS-CoV-2 INTERPRETATION (test code = 50690) Positive SOURCE (test code = 43925) Nasal_Swab_in _VTM__ UTM SARS-CoV-2 (COVID-19) by RT-PCR (HIGH RISK)2019-09-01 00:00:00* Test Item Value Reference Range Interpretation Comme nts SARS-CoV-2 INTERPRETATION (t est code = 20991) NEGATIVE SOURCE (test code = 35176) NOT SPECIFIED SARS-CoV-2 (COVID-19) by RT-PCR (HIGH RISK)2019-09-01 00:00:00* Test Item Value Reference Range Interpretation Comme nts SARS-CoV-2 INTERPRETATION (t est code = 56959) NEGATIVE SOURCE (test code = 92101) NOT SPECIFIED SARS-CoV-2 (COVID-19) by RT-PCR (HIGH RISK)2019-09-01 00:00:00* Test Item Value Reference Range Interpretation Comme nts SARS-CoV-2 INTERPRETATION (t est code = 46227) NEGATIVE SOURCE (test code = 92495) NOT SPECIFIED HEMOGLOBIN [id number] 00:00:00* Test Item Value Reference Range Interpretation Comme nts HEMOGLOBIN A1c (test code = 23348) 8.1 % LIPID [id number] 00:00:00* Test Item Value Reference Range Interpretation Comme nts CHOLESTEROL (test code = 2210) 336 MG/DL TRIGLYCERIDES (test code = 2232) 1678 MG/DL HDL CHOLESTEROL (test code = 2220) 28 MG/DL CALC LDL CHOL (test code = 2237) (NOTE) MG/DL RISK RATIO LDL/HDL (test cod e = 2238) (NOTE) RATIO COMPREHENSIVE METABOLIC [id number] 00:00:00* Test Item Value Reference Range Interpretation Comme nts GLUCOSE (test code = 2217) 175 MG/DL BUN (test code = 2208) 8 MG/DL CREATININE (test code = 2214) 0.53 MG/DL eGFR AMER. (test cod e = 72683) 133 ML/MIN/1.73 eGFR NON- AMER. (test code = 62138) 115 ML/MIN/1.73 CALC BUN/CREAT (test code = [...] (test code = 2219) 25 U/L HEMOGLOBIN [id number] 00:00:00* Test Item Value Reference Range Interpretation Comme nts HEMOGLOBIN A1c (test code = 67407) 8.1 % LIPID [id number] 00:00:00* Test Item Value Reference Range Interpretation Comme nts CHOLESTEROL (test code = 2210) 336 MG/DL TRIGLYCERIDES (test code = 2232) 1678 MG/DL HDL CHOLESTEROL (test code = 2220) 28 MG/DL CALC LDL CHOL (test code = 2237) (NOTE) MG/DL RISK RATIO LDL/HDL (test cod e = 2238) (NOTE) RATIO COMPREHENSIVE METABOLIC [id number] 00:00:00* Test Item Value Reference Range Interpretation Comme nts GLUCOSE (test code = 2217) 175 MG/DL BUN (test code = 2208) 8 MG/DL CREATININE (test code = 2214) 0.53 MG/DL eGFR AMER. (test cod e = 74101) 133 ML/MIN/1.73 eGFR NON- AMER. (test code = 38929) 115 ML/MIN/1.73 CALC BUN/CREAT (test code = [...] (test code = 2219) 25 U/L HEMOGLOBIN [id number] 00:00:00* Test Item Value Reference Range Interpretation Comme nts HEMOGLOBIN A1c (test code = 06494) 8.1 % LIPID [id number] 00:00:00* Test Item Value Reference Range Interpretation Comme nts CHOLESTEROL (test code = 2210) 336 MG/DL TRIGLYCERIDES (test code = 2232) 1678 MG/DL HDL CHOLESTEROL (test code = 2220) 28 MG/DL CALC LDL CHOL (test code = 2237) (NOTE) MG/DL RISK RATIO LDL/HDL (test cod e = 2238) (NOTE) RATIO COMPREHENSIVE METABOLIC [id number] 00:00:00* Test Item Value Reference Range Interpretation Comme nts GLUCOSE (test code = 2217) 175 MG/DL BUN (test code = 2208) 8 MG/DL CREATININE (test code = 2214) 0.53 MG/DL eGFR AMER. (test cod e = 55588) 133 ML/MIN/1.73 eGFR NON- AMER. (test code = 21071) 115 ML/MIN/1.73 CALC BUN/CREAT (test code = [...] code = 2219) 25 U/L COMPREHENSIVE METABOLIC [id number] 00:00:00* Test Item Value Reference Range Interpretation Comme nts GLUCOSE (test code = 2217) 286 MG/DL BUN (test code = 2208) 9 MG/DL CREATININE (test code = 2214) 0.56 MG/DL eGFR AMER. (test cod e = 89238) 131 ML/MIN/1.73 eGFR NON- AMER. (test code = 00132) 113 ML/MIN/1.73 CALC BUN/CREAT (test code = [...] code = 2219) <5 U/L COMPREHENSIVE METABOLIC [id number] 00:00:00* Test Item Value Reference Range Interpretation Comme nts GLUCOSE (test code = 2217) 286 MG/DL BUN (test code = 2208) 9 MG/DL CREATININE (test code = 2214) 0.56 MG/DL eGFR AMER. (test cod e = 39607) 131 ML/MIN/1.73 eGFR NON- AMER. (test code = 70795) 113 ML/MIN/1.73 CALC BUN/CREAT (test code = [...] code = 2219) <5 U/L COMPREHENSIVE METABOLIC [id number] 00:00:00* Test Item Value Reference Range Interpretation Comme nts GLUCOSE (test code = 2217) 286 MG/DL BUN (test code = 2208) 9 MG/DL CREATININE (test code = 2214) 0.56 MG/DL eGFR AMER. (test cod e = 06118) 131 ML/MIN/1.73 eGFR NON- AMER. (test code = 12188) 113 ML/MIN/1.73 CALC BUN/CREAT (test code = [...] = 2219) <5 U/L MICROALBUMIN/CREATININE, RANDOM AND [id number] 00:00:00* Test Item Value Reference Range Interpretation Comme nts CREATININE, URINE, CONC. (te st code = 207) 112.4 MG/DL ALBUMIN, URINE, RANDOM (test code = 28063) 9.2 MG/DL CALC ALBUMIN/CREAT, RND (monique t code = 22268) 82 MG/G HEMOGLOBIN [id number] 00:00:00* Test Item Value Reference Range Interpretation Comme nts HEMOGLOBIN A1c (test code = 00677) 7.5 % MICROALBUMIN/CREATININE, RANDOM AND [id number] 00:00:00* Test Item Value Reference Range Interpretation Comme nts CREATININE, URINE, CONC. (te st code = 207) 112.4 MG/DL ALBUMIN, URINE, RANDOM (test code = 17211) 9.2 MG/DL CALC ALBUMIN/CREAT, RND (monique t code = 69354) 82 MG/G HEMOGLOBIN [id number] 00:00:00* Test Item Value Reference Range Interpretation Comme nts HEMOGLOBIN A1c (test code = 26553) 7.5 % MICROALBUMIN/CREATININE, RANDOM AND [id number] 00:00:00* Test Item Value Reference Range Interpretation Comme nts CREATININE, URINE, CONC. (te st code = 207) 112.4 MG/DL ALBUMIN, URINE, RANDOM (test code = 45339) 9.2 MG/DL CALC ALBUMIN/CREAT, RND (monique t code = 27203) 82 MG/G HEMOGLOBIN [id number] 00:00:00* Test Item Value Reference Range Interpretation Comme nts HEMOGLOBIN A1c (test code = 98644) 7.5 % HEMOGLOBIN [id number] 00:00:00* Test Item Value Reference Range Interpretation Comme nts HEMOGLOBIN A1c (test code = 37436) 8.2 % MICROALBUMIN/CREATININE, RANDOM AND [id number] 00:00:00* Test Item Value Reference Range Interpretation Comme nts CREATININE, URINE, CONC. (te st code = 2072) 95.3 MG/DL ALBUMIN, URINE, RANDOM (test code = 58415) 15.6 MG/DL CALC ALBUMIN/CREAT, RND (monique t code = 72450) 164 MG/G HEMOGLOBIN [id number] 00:00:00* Test Item Value Reference Range Interpretation Comme nts HEMOGLOBIN A1c (test code = 19486) 8.2 % MICROALBUMIN/CREATININE, RANDOM AND [id number] 00:00:00* Test Item Value Reference Range Interpretation Comme nts CREATININE, URINE, CONC. (te st code = 2071) 95.3 MG/DL ALBUMIN, URINE, RANDOM (test code = 93365) 15.6 MG/DL CALC ALBUMIN/CREAT, RND (monique t code = 02998) 164 MG/G HEMOGLOBIN [id number] 00:00:00* Test Item Value Reference Range Interpretation Comme nts HEMOGLOBIN A1c (test code = 57077) 8.2 % MICROALBUMIN/CREATININE, RANDOM AND [id number] 00:00:00* Test Item Value Reference Range Interpretation Comme nts CREATININE, URINE, CONC. (te st code = 207) 95.3 MG/DL ALBUMIN, URINE, RANDOM (test code = 14613) 15.6 MG/DL CALC ALBUMIN/CREAT, RND (monique t code = 77124) 164 MG/G LIPID [id number] 00:00:00* Test Item Value Reference Range Interpretation Comme nts CHOLESTEROL (test code = 2210) 242 MG/DL TRIGLYCERIDES (test code = 2232) 721 MG/DL HDL CHOLESTEROL (test code = 2220) 41 MG/DL CALC LDL CHOL (test code = 2237) NOTE MG/DL RISK RATIO LDL/HDL (test cod e = 2238) (NOTE) RATIO HEMOGLOBIN [id number] 00:00:00* Test Item Value Reference Range Interpretation Comme nts HEMOGLOBIN A1c (test code = 28940) 7.0 % COMPREHENSIVE METABOLIC [id number] 00:00:00* Test Item Value Reference Range Interpretation Comme nts GLUCOSE (test code = 2217) 188 MG/DL BUN (test code = 2208) 8 MG/DL CREATININE (test code = 2214) 0.47 MG/DL eGFR AMER. (test cod e = 89488) 139 ML/MIN/1.73 eGFR NON- AMER. (test code = 10757) 120 ML/MIN/1.73 CALC BUN/CREAT (test code = [...] (test code = 2219) 11 U/L LIPID [id number] 00:00:00* Test Item Value Reference Range Interpretation Comme nts CHOLESTEROL (test code = 2210) 242 MG/DL TRIGLYCERIDES (test code = 2232) 721 MG/DL HDL CHOLESTEROL (test code = 2220) 41 MG/DL CALC LDL CHOL (test code = 2237) NOTE MG/DL RISK RATIO LDL/HDL (test cod e = 2238) (NOTE) RATIO HEMOGLOBIN [id number] 00:00:00* Test Item Value Reference Range Interpretation Comme nts HEMOGLOBIN A1c (test code = 35032) 7.0 % COMPREHENSIVE METABOLIC [id number] 00:00:00* Test Item Value Reference Range Interpretation Comme nts GLUCOSE (test code = 2217) 188 MG/DL BUN (test code = 2208) 8 MG/DL CREATININE (test code = 2214) 0.47 MG/DL eGFR AMER. (test cod e = 98631) 139 ML/MIN/1.73 eGFR NON- AMER. (test code = 81012) 120 ML/MIN/1.73 CALC BUN/CREAT (test code = [...] (test code = 2219) 11 U/L LIPID [id number] 00:00:00* Test Item Value Reference Range Interpretation Comme nts CHOLESTEROL (test code = 2210) 242 MG/DL TRIGLYCERIDES (test code = 2232) 721 MG/DL HDL CHOLESTEROL (test code = 2220) 41 MG/DL CALC LDL CHOL (test code = 2237) NOTE MG/DL RISK RATIO LDL/HDL (test cod e = 2238) (NOTE) RATIO HEMOGLOBIN [id number] 00:00:00* Test Item Value Reference Range Interpretation Comme nts HEMOGLOBIN A1c (test code = 11440) 7.0 % COMPREHENSIVE METABOLIC [id number] 00:00:00* Test Item Value Reference Range Interpretation Comme nts GLUCOSE (test code = 2217) 188 MG/DL BUN (test code = 2208) 8 MG/DL CREATININE (test code = 2214) 0.47 MG/DL eGFR AMER. (test cod e = 01875) 139 ML/MIN/1.73 eGFR NON- AMER. (test code = 90184) 120 ML/MIN/1.73 CALC BUN/CREAT (test code = [...] (test code = 2219) 11 U/L LIPID [id number] 00:00:00* Test Item Value Reference Range Interpretation Comme nts CHOLESTEROL (test code = 2210) 182 MG/DL TRIGLYCERIDES (test code = 2232) 489 MG/DL HDL CHOLESTEROL (test code = 2220) 43 MG/DL CALC LDL CHOL (test code = 2237) NOTE MG/DL RISK RATIO LDL/HDL (test cod e = 223) (NOTE) RATIO HEMOGLOBIN [id number] 00:00:00* Test Item Value Reference Range Interpretation Comme nts HEMOGLOBIN A1c (test code = 41239) 6.1 % COMPREHENSIVE METABOLIC [id number] 00:00:00* Test Item Value Reference Range Interpretation Comme nts GLUCOSE (test code = 2217) 169 MG/DL BUN (test code = 2208) 7 MG/DL CREATININE (test code = 2214) 0.51 MG/DL eGFR AMER. (test cod e = 47815) 136 ML/MIN/1.73 eGFR NON- AMER. (test code = 09548) 118 ML/MIN/1.73 CALC BUN/CREAT (test code = [...] (test code = 2219) 10 U/L LIPID [id number] 00:00:00* Test Item Value Reference Range Interpretation Comme nts CHOLESTEROL (test code = 2210) 182 MG/DL TRIGLYCERIDES (test code = 2232) 489 MG/DL HDL CHOLESTEROL (test code = 2220) 43 MG/DL CALC LDL CHOL (test code = 2237) NOTE MG/DL RISK RATIO LDL/HDL (test cod e = 2238) (NOTE) RATIO HEMOGLOBIN [id number] 00:00:00* Test Item Value Reference Range Interpretation Comme nts HEMOGLOBIN A1c (test code = 93521) 6.1 % COMPREHENSIVE METABOLIC [id number] 00:00:00* Test Item Value Reference Range Interpretation Comme nts GLUCOSE (test code = 2217) 169 MG/DL BUN (test code = 2208) 7 MG/DL CREATININE (test code = 2214) 0.51 MG/DL eGFR AMER. (test cod e = 53798) 136 ML/MIN/1.73 eGFR NON- AMER. (test code = 89225) 118 ML/MIN/1.73 CALC BUN/CREAT (test code = [...] (test code = 2219) 10 U/L LIPID [id number] 00:00:00* Test Item Value Reference Range Interpretation Comme nts CHOLESTEROL (test code = 2210) 182 MG/DL TRIGLYCERIDES (test code = 2232) 489 MG/DL HDL CHOLESTEROL (test code = 2220) 43 MG/DL CALC LDL CHOL (test code = 2237) NOTE MG/DL RISK RATIO LDL/HDL (test cod e = 2238) (NOTE) RATIO HEMOGLOBIN [id number] 00:00:00* Test Item Value Reference Range Interpretation Comme nts HEMOGLOBIN A1c (test code = 41252) 6.1 % COMPREHENSIVE METABOLIC [id number] 00:00:00* Test Item Value Reference Range Interpretation Comme nts GLUCOSE (test code = 2217) 169 MG/DL BUN (test code = 2208) 7 MG/DL CREATININE (test code = 2214) 0.51 MG/DL eGFR AMER. (test cod e = 11421) 136 ML/MIN/1.73 eGFR NON- AMER. (test code = 80430) 118 ML/MIN/1.73 CALC BUN/CREAT (test code = [...] = 2219) 10 U/L MICROALBUMIN/CREATININE, RANDOM AND [id number] 00:00:00* Test Item Value Reference Range Interpretation Comme nts CREATININE, URINE, CONC. (te st code = 2072) 86.9 MG/DL MICROALBUMIN, RANDOM (test c ode = 86800) 3.2 MG/DL CALC MICROALB/CREAT RND (monique t code = 24067) 37 MG/G MICROALBUMIN/CREATININE, RANDOM AND [id number] 00:00:00* Test Item Value Reference Range Interpretation Comme nts CREATININE, URINE, CONC. (te st code = 2071) 86.9 MG/DL MICROALBUMIN, RANDOM (test c ode = 06649) 3.2 MG/DL CALC MICROALB/CREAT RND (monique t code = 18249) 37 MG/G MICROALBUMIN/CREATININE, RANDOM AND [id number] 00:00:00* Test Item Value Reference Range Interpretation Comme nts CREATININE, URINE, CONC. (te st code = 2071) 86.9 MG/DL MICROALBUMIN, RANDOM (test c ode = 79890) 3.2 MG/DL CALC MICROALB/CREAT RND (monique t code = 73619) 37 MG/G MICROALBUMIN/CREATININE, RANDOM AND [id number] 00:00:00* Test Item Value Reference Range Interpretation Comme nts CREATININE, URINE, CONC. (test code = 2071) TEST NOT PERFORMED MG/DL MICROALBUMIN, RANDOM (test code = 51866) TEST NOT PERFORMED MG/DL CALC MICROALB/CREAT RND (test code = 99517) TEST NOT PERFORMED MG/G MICROALBUMIN/CREATININE, RANDOM AND [id number] 00:00:00* Test Item Value Reference Range Interpretation Comme nts CREATININE, URINE, CONC. (test code = 2071) TEST NOT PERFORMED MG/DL MICROALBUMIN, RANDOM (test code = 20022) TEST NOT PERFORMED MG/DL CALC MICROALB/CREAT RND (test code = 63651) TEST NOT PERFORMED MG/G MICROALBUMIN/CREATININE, RANDOM AND [id number] 00:00:00* Test Item Value Reference Range Interpretation Comme nts CREATININE, URINE, CONC. (test code = 2071) TEST NOT PERFORMED MG/DL MICROALBUMIN, RANDOM (test code = 63344) TEST NOT PERFORMED MG/DL CALC MICROALB/CREAT RND (test code = 76779) TEST NOT PERFORMED MG/G HEMOGLOBIN [id number] 00:00:00* Test Item Value Reference Range Interpretation Comme nts HEMOGLOBIN A1c (test code = 77927) 9.0 % [id number] 00:00:00* Test Item Value Reference Range Interpretation Comme nts TSH (test code = 2821) 0.853 UIU/ML COMPREHENSIVE METABOLIC [id number] 00:00:00* Test Item Value Reference Range Interpretation Comme nts GLUCOSE (test code = 2217) 298 MG/DL BUN (test code = 2208) 8 MG/DL CREATININE (test code = 2214) 0.39 MG/DL eGFR AMER. (test cod e = 20623) 149 ML/MIN/1.73 eGFR NON- AMER. (test code = 46103) 129 ML/MIN/1.73 CALC BUN/CREAT (test code = [...] (test code = 2219) 8 U/L LIPID [id number] 00:00:00* Test Item Value Reference Range Interpretation Comme nts CHOLESTEROL (test code = 2210) 233 MG/DL TRIGLYCERIDES (test code = 2232) 775 MG/DL HDL CHOLESTEROL (test code = 2220) 39 MG/DL CALC LDL CHOL (test code = 2237) NOTE MG/DL RISK RATIO LDL/HDL (test cod e = 2238) (NOTE) RATIO CBC W/AUTO [id number] 00:00:00* Test Item Value Reference Range Interpretation [...] (test code = 1015) 317 K/UL HEMOGLOBIN [id number] 00:00:00* Test Item Value Reference Range Interpretation Comme nts HEMOGLOBIN A1c (test code = 79525) 9.0 % [id number] 00:00:00* Test Item Value Reference Range Interpretation Comme nts TSH (test code = 2821) 0.853 UIU/ML COMPREHENSIVE METABOLIC [id number] 00:00:00* Test Item Value Reference Range Interpretation Comme nts GLUCOSE (test code = 2217) 298 MG/DL BUN (test code = 2208) 8 MG/DL CREATININE (test code = 2214) 0.39 MG/DL eGFR AMER. (test cod e = 51227) 149 ML/MIN/1.73 eGFR NON- AMER. (test code = 66044) 129 ML/MIN/1.73 CALC BUN/CREAT (test code = [...] (test code = 2219) 8 U/L LIPID [id number] 00:00:00* Test Item Value Reference Range Interpretation Comme nts CHOLESTEROL (test code = 2210) 233 MG/DL TRIGLYCERIDES (test code = 2232) 775 MG/DL HDL CHOLESTEROL (test code = 2220) 39 MG/DL CALC LDL CHOL (test code = 2237) NOTE MG/DL RISK RATIO LDL/HDL (test cod e = 2238) (NOTE) RATIO CBC W/AUTO [id number] 00:00:00* Test Item Value Reference Range Interpretation [...] (test code = 1015) 317 K/UL HEMOGLOBIN [id number] 00:00:00* Test Item Value Reference Range Interpretation Comme nts HEMOGLOBIN A1c (test code = 95964) 9.0 % [id number] 00:00:00* Test Item Value Reference Range Interpretation Comme nts TSH (test code = 2821) 0.853 UIU/ML COMPREHENSIVE METABOLIC [id number] 00:00:00* Test Item Value Reference Range Interpretation Comme nts GLUCOSE (test code = 2217) 298 MG/DL BUN (test code = 2208) 8 MG/DL CREATININE (test code = 2214) 0.39 MG/DL eGFR AMER. (test cod e = 42617) 149 ML/MIN/1.73 eGFR NON- AMER. (test code = 47012) 129 ML/MIN/1.73 CALC BUN/CREAT (test code = [...] (test code = 2219) 8 U/L LIPID [id number] 00:00:00* Test Item Value Reference Range Interpretation Comme nts CHOLESTEROL (test code = 2210) 233 MG/DL TRIGLYCERIDES (test code = 2232) 775 MG/DL HDL CHOLESTEROL (test code = 2220) 39 MG/DL CALC LDL CHOL (test code = 2237) NOTE MG/DL RISK RATIO LDL/HDL (test cod e = 2238) (NOTE) RATIO CBC W/AUTO [id number] 00:00:00* Test Item Value Reference Range Interpretation [...] code = 1015) 317 K/UL CBC W/AUTO [id number] 00:00:00* Test Item Value Reference Range Interpretation [...] COMMENTS (test code = 1016) (NOTE) HEMOGLOBIN [id number] 00:00:00* Test Item Value Reference Range Interpretation Comme nts HEMOGLOBIN A1c (test code = 80951) 8.3 % [id number] 00:00:00* Test Item Value Reference Range Interpretation Comme nts TSH (test code = 2821) 1.1 UIU/ML COMPREHENSIVE METABOLIC [id number] 00:00:00* Test Item Value Reference Range Interpretation Comme nts GLUCOSE (test code = 2217) 196 MG/DL BUN (test code = 2208) 8 MG/DL CREATININE (test code = 2214) 0.48 MG/DL eGFR AMER. (test cod e = 20800) 141 ML/MIN/1.73 eGFR NON- AMER. (test code = 82450) 122 ML/MIN/1.73 CALCULATED BUN/CREAT (test code = [...] (test code = 2219) 7 U/L LIPID [id number] 00:00:00* Test Item Value Reference Range Interpretation Comme nts CHOLESTEROL (test code = 2210) 289 MG/DL TRIGLYCERIDES (test code = 2232) 1092 MG/DL HDL CHOLESTEROL (test code = 2220) 41 MG/DL CALCULATED LDL CHOL (test co de = 2237) NOTE MG/DL CBC W/AUTO [id number] 00:00:00* Test Item Value Reference Range Interpretation [...] COMMENTS (test code = 1016) (NOTE) HEMOGLOBIN [id number] 00:00:00* Test Item Value Reference Range Interpretation Comme nts HEMOGLOBIN A1c (test code = 15204) 8.3 % [id number] 00:00:00* Test Item Value Reference Range Interpretation Comme nts TSH (test code = 2821) 1.1 UIU/ML COMPREHENSIVE METABOLIC [id number] 00:00:00* Test Item Value Reference Range Interpretation Comme nts GLUCOSE (test code = 2217) 196 MG/DL BUN (test code = 2208) 8 MG/DL CREATININE (test code = 2214) 0.48 MG/DL eGFR AMER. (test cod e = 66421) 141 ML/MIN/1.73 eGFR NON- AMER. (test code = 65912) 122 ML/MIN/1.73 CALCULATED BUN/CREAT (test code = [...] (test code = 221) 7 U/L LIPID [id number] 00:00:00* Test Item Value Reference Range Interpretation Comme nts CHOLESTEROL (test code = 2210) 289 MG/DL TRIGLYCERIDES (test code = 2232) 1092 MG/DL HDL CHOLESTEROL (test code = 2220) 41 MG/DL CALCULATED LDL CHOL (test co de = 2237) NOTE MG/DL CBC W/AUTO [id number] 00:00:00* Test Item Value Reference Range Interpretation [...] COMMENTS (test code = 1016) (NOTE) HEMOGLOBIN [id number] 00:00:00* Test Item Value Reference Range Interpretation Comme nts HEMOGLOBIN A1c (test code = 01363) 8.3 % [id number] 00:00:00* Test Item Value Reference Range Interpretation Comme nts TSH (test code = 2821) 1.1 UIU/ML COMPREHENSIVE METABOLIC [id number] 00:00:00* Test Item Value Reference Range Interpretation Comme nts GLUCOSE (test code = 2217) 196 MG/DL BUN (test code = 2208) 8 MG/DL CREATININE (test code = 2214) 0.48 MG/DL eGFR AMER. (test cod e = 88266) 141 ML/MIN/1.73 eGFR NON- AMER. (test code = 34885) 122 ML/MIN/1.73 CALCULATED BUN/CREAT (test code = [...] (test code = 2219) 7 U/L LIPID [id number] 00:00:00* Test Item Value Reference Range Interpretation Comme nts CHOLESTEROL (test code = 2210) 289 MG/DL TRIGLYCERIDES (test code = 2232) 1092 MG/DL HDL CHOLESTEROL (test code = 2220) 41 MG/DL CALCULATED LDL CHOL (test co de = 2237) NOTE MG/DL Notes Date/Time Note Provider Source 2023-12-24 15:28:04 Contacted patient. Patient requesting to schedule WWE and get new Rx by Dr Magallanes. Appointment made for WWE. Blaine Rodriguez RN 12/24/2023 3:28 PM Blaine Rodriguez RN [facility] 2023-12-24 14:34:[address] Magallanes. Per Dr. Magallanes she needs to contact original prescriber. If she would like this to be prescribed by us she is in need of a well woman exam. Blaine Rodriguez RN 12/24/2023 2:35 PM Blaine Rodriguez RN [facility] 2023-12-24 13:51:26 Patient seen by provider once on 07/14/23 for problem visit. No medication was sent. Will send to provider. acyclovir 400 mg tablet 60 tablet 10 10/10/2021 -- No Sig: Take 1 tablet by mouth in the morning and 1 tablet in the evening. Sent to pharmacy as: acyclovir 400 mg tablet (ZOVIRAX) Blaine Rodriguez RN 12/24/2023 1:55 PM Blaine Rodriguez RN [facility] 2023-12-24 10:51:32 Pt requesting a refill on acyclovir 400 mg tablet Please froward to [facility] [address] [place] [id number] Alyse Donovan [facility] 2023-07-29 15:30:48 Called, no answer. Lvm, sent [employer] message. Ludmila Seay MA [facility] 2023-07-29 15:12:13 Pt calling to go over usg results. Astrid Elkins [facility]
[2024-07-12 10:07] LABS: Absolute Eosinophils 0.1 K/uL (0-0.5); Absolute Monocytes 0.3 K/uL (0.1-1.3); Absolute Neutrophil 5.7 K/uL (1.8-8.0); Basophils % 0.1 % (0-1.3); Eosinophils % 1.1 % (0-4.4); Hematocrit 41.7 % (36.0-45.0); Hemoglobin 14.3 g/dL (12.0-15.0); Lymphocytes % 24.4 % (15.3-44.8); MCH 30.1 pg (27.0-35.0); MCHC 34.3 g/dL (32.0-36.0); MCV 87.7 fL (80-100); MPV 8.1 fL (7.6-11.3); Monocytes % 4.1 % (3.3-12.3); Neutrophils % 70.3 % (41.7-73.7); Nucleated Red Blood Cells % 0.1 % (0-0); Platelets 239 thou/uL (152-406); RBC Red Blood Cell Count 4.76 M/uL (3.86-4.86); Red Cell Distribution Width 13.2 % (12.1-15.2)
[2024-07-12 10:17] LABS: Anion Gap 13.9 mEq/L (5.0-15.0); Potassium 3.9 mEq/L (3.5-5.1)
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
--- NOTE | 2024-07-12 11:26 | ER ---
Nurse's Notes [facility] Name: Effie Crouch Age: 48 yrs Sex: Female : 1975 Arrival Date: 07/12/2024 Time: 09:20 Bed 23 Private MD: Diagnosis: Toxic effect of chlorine gas, accidental (unintentional), initial encounter Presentation: 07/12 09:15 Chief complaint: Patient states: INHALED CHLORINE GAS WHILE WORKING AT [employer]. THROAT db BURNING. COMPLAINS OF NAUSEA. Coronavirus screen: Client denies travel out of the [place] in the last 14 days. At this time, the client does not indicate any symptoms associated with coronavirus-19. Ebola Screen: Patient negative for fever greater than or equal to 101.5 degrees Fahrenheit, and additional compatible Ebola Virus Disease symptoms Patient denies exposure to infectious person. Patient denies travel to an Ebola-affected area in the 21 days before illness onset. No symptoms or risks identified at this time. Initial Sepsis Screen: Does the patient meet any 2 criteria? No. Patient's initial sepsis screen is negative. Does the patient have a suspected source of infection? No. Patient's initial sepsis screen is negative. Risk Assessment: Do you want to hurt yourself or someone else? Patient reports no desire to harm self or others. Onset of symptoms was July 12, 2024. 09:15 Method Of Arrival: EMS: [facility] db 09:15 Acuity: MARNI 2 db Triage Assessment: 09:15 General: Appears in no apparent distress. comfortable, Behavior is cooperative, db anxious. Pain: Denies pain. Neuro: Level of Consciousness is awake, alert, obeys commands, Oriented to person, place, time, situation. Respiratory: Airway is patent Respiratory effort is even, unlabored, Onset: The symptoms/episode began/occurred just prior to arrival, the patient has mild shortness of breath. 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 - Infectious Disease History:: Denies. - Social history:: Smoking status: Patient reports the use of cigarette tobacco products, smokes one-half pack cigarettes per day. Screenin:36 [facility] ED Fall Risk Assessment (Adult) History of falling in the last 3 months, db including since admission No falls in past 3 months (0 pts) Confusion or Disorientation No (0 pts) Intoxicated or Sedated No (0 pts) Impaired Gait No (0 pts) Mobility Assist Device Used No (0 pt) Altered Elimination No (0 pt) Score/Fall Risk Level 0 - 2 = Low Risk Oriented to surroundings, Maintained a safe environment. Abuse screen: Denies threats or abuse. Denies injuries from another. Nutritional screening: No deficits noted. Tuberculosis screening: No symptoms or risk factors identified. Assessment: 10:01 Reassessment: Patient appears in no apparent distress at this time. Patient and/or db family updated on plan of care and expected duration. Pain level reassessed. Patient is alert, oriented x 3, equal unlabored respirations, skin warm/dry/pink. General: Appears in no apparent distress. comfortable, Behavior is calm, cooperative. Neuro: Level of Consciousness is awake, alert, obeys commands, Oriented to person, place, time, situation. Cardiovascular: No deficits noted. Rhythm is regular. Respiratory: Airway is patent Respiratory effort is even, unlabored, Respiratory pattern is regular, symmetrical, Breath sounds are clear. 10:55 Reassessment: Patient appears in no apparent distress at this time. Patient and/or db family updated on plan of care and expected duration. Pain level reassessed. Patient is alert, oriented x 3, equal unlabored respirations, skin warm/dry/pink. Reassessment: Patient appears in no apparent distress at this time. 11:43 Reassessment: Patient appears in no apparent distress at this time. Patient and/or db family updated on plan of care and expected duration. Pain level reassessed. Patient is alert, oriented x 3, equal unlabored respirations, skin warm/dry/pink. Patient states feeling better. Patient states symptoms have improved. General: Appears in no apparent distress. comfortable, Behavior is calm, cooperative. Neuro: Level of Consciousness is awake, alert, obeys commands, Oriented to person, place, time, situation. Respiratory: Airway is patent Respiratory effort is even, unlabored, Respiratory pattern is regular, symmetrical. Vital Signs: 09:15 BP 146 / 66; Pulse 84; Resp 16; Temp 98.8(O); Pulse Ox 100% ; Weight 60.78 kg; Height 5 db ft. 2 in. ; 09:30 BP 149 / 67; Pulse 97; Resp 22; Pulse Ox 100% ; db 10:14 BP 147 / 68; Pulse 79; Resp 16; Pulse Ox 100% on R/A; db 10:57 BP 142 / 65; Pulse 87; Resp 18; Pulse Ox 100% ; db 11:30 BP 143 / 68; Pulse 89; Resp 20; Pulse Ox 100% ; db 09:15 Body Mass Index 24.51 (60.78 kg, 157.48 cm) db ED Course: 09:15 Arm band placed on Patient placed in an exam room. db 09:22 Patient arrived in ED. db 09:23 Sharan Hannon DO is Attending Physician. ms3 09:33 Triage completed. db 09:36 Patient has correct armband on for positive identification. Bed in low position. Call db light in reach. Side rails up X2. Placed in gown. Client placed on continuous cardiac and pulse oximetry monitoring. NIBP monitoring applied. lunchroom monitor on. Pulse ox on. NIBP on. Warm blanket given. Pillow given. PT CHANGED INTO GOWN. 09:36 Initial lab(s) drawn, by me, sent to lab. Inserted saline lock: 20 gauge in right db antecubital area, using aseptic technique. Blood collected. Flushed with 10 mL NS. 09:37 Milly Cuevas, RN is Primary Nurse. db 10:01 Patient moved to radiology via wheelchair. db 10:14 Patient moved back from radiology. db 10:19 Chest Pa And Lat (2 Views) XRAY In Process Unspecified. EDMS 11:25 Gopal Bui DO is Referral Physician. ms3 11:41 Provided Education on: DISCHARGE AND FOLLOWUP. db 11:41 No provider procedures requiring assistance completed. IV discontinued, intact, db bleeding controlled, No redness/swelling at site. Administered Medications: No medications were administered Medication: 09:36 VIS not applicable for this client. db Outcome: 11:25 Discharge ordered by MD. ms3 11:41 Discharged to home ambulatory, with family, db 11:41 Condition: stable 11:41 Discharge instructions given to patient, Instructed on discharge instructions, follow up and referral plans. 11:44 Patient left the ED. db Signatures: Dispatcher [employer] EDMS Sharan Hannon DO DO ms3 Milly Cuevas, RN RN db
--- NOTE | 2024-07-12 11:26 | EDPHYS ---
Physician Documentation [facility] Name: Effie Crouch Age: 48 yrs Sex: Female : 1975 Arrival Date: 07/12/2024 Time: :20 Bed 23 Private MD: ED Physician Sharan Hannon HPI: 07/12 09:59 This 48 yrs old Female presents to ER via EMS with complaints of Chemical ms3 Inhalation. 09:59 48-year-old female with past medical history of anemia, diabetes, hypertension presents ms3 to the emergency department via [facility] status post chlorine gas inhalation. Patient states she was getting out of her truck when she opened the door smelling chlorine gas. Patient closed the truck door and placed on her respirator. Patient endorses shortness of breath, nausea. Patient denies vomiting. She denies any alleviating factors or. 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 - Infectious Disease History:: Denies. - Social history:: Smoking status: Patient reports the use of cigarette tobacco products, smokes one-half pack cigarettes per day. ROS: 09:59 Constitutional: Negative for fever, and chills. Cardiovascular: Negative for chest ms3 pain, and palpitations. MS/Extremity: Negative for injury and deformity, 09:59 Respiratory: Positive for cough, shortness of breath, 09:59 Abdomen/GI: Positive for nausea, ms3 Exam: 09:59 Constitutional: This is a well developed, well nourished patient who is awake, alert, ms3 and in no acute distress. Cardiovascular: Regular rate and rhythm with a normal S1 and S2. No gallops, murmurs, or rubs. Normal PMI, no JVD. No pulse deficits. Respiratory: Lungs have equal breath sounds bilaterally, clear to auscultation and percussion. No rales, rhonchi or wheezes noted. No increased work of breathing, no retractions or nasal flaring. Abdomen/GI: Soft, non-tender, with normal bowel sounds. No distension or tympany. No guarding or rebound. No evidence of tenderness throughout. Skin: Warm, dry with normal turgor. Normal color with no rashes, no lesions, and no evidence of cellulitis. MS/ Extremity: Pulses equal, no cyanosis. Neurovascular intact. Full, normal range of motion. Vital Signs: 09:15 BP 146 / 66; Pulse 84; Resp 16; Temp 98.8(O); Pulse Ox 100% ; Weight 60.78 kg; Height 5 db ft. 2 in. ; 09:30 BP 149 / 67; Pulse 97; Resp 22; Pulse Ox 100% ; db 10:14 BP 147 / 68; Pulse 79; Resp 16; Pulse Ox 100% on R/A; db 10:57 BP 142 / 65; Pulse 87; Resp 18; Pulse Ox 100% ; db 11:30 BP 143 / 68; Pulse 89; Resp 20; Pulse Ox 100% ; db 09:15 Body Mass Index 24.51 (60.78 kg, 157.48 cm) db MDM: 09:33 Medical Screening Exam initiated ms3 09:59 Differential diagnosis: pulmonary edema, Lung irritation versus chlorine gas inhalation.ms3 20:16 Data reviewed: vital signs, nurses notes, radiologic studies, and as a result, I will ms3 discharge patient. Independent interpretation of the following test(s) in the Emergency Department X-Ray: My interpretation is Chest x-ray images reviewed by me do not reveal pulmonary edema. Counseling: I had a detailed discussion with the patient and/or guardian regarding the historical points, exam findings, and any diagnostic results supporting the discharge/admit diagnosis, radiology results, the need for outpatient follow up, to return to the emergency department if symptoms worsen or persist or if there are any questions or concerns that arise at home. Special discussion: I discussed with the patient/guardian in detail that at this point there is no indication for admission to the hospital. It is understood, however, that if the symptoms persist or worsen the patient needs to return immediately for re-evaluation. ED course: Patient's oxygen saturation remains 100% on room air. Patient to follow-up with primary care physician 2 to 3 days. All questions were answered. Return precautions discussed include worsening symptoms, or any other concerns. 07/12 09:34 Order name: CBC with Diff; Complete Time: 10:47 ms3 07/12 09:34 Order name: BMP; Complete Time: 10:47 ms3 07/12 09:34 Order name: Chest Pa And Lat (2 Views) XRAY; Complete Time: 10:47 ms3 Administered Medications: No medications were administered Disposition Summary: 07/12/24 11:25 Discharge Ordered Notes: Location: Home ms3 Condition: Stable ms3 Diagnosis - Toxic effect of chlorine gas, accidental (unintentional), initial encounter ms3 Followup: ms3 - With: Gopal Bui DO - When: 2 - 3 days - Reason: Recheck today's complaints Discharge Instructions: - Discharge Summary Sheet ms3 - Chemical Inhalation Injury, Adult ms3 Forms: - Medication Reconciliation Form ms3 - Antibiotic Education ms3 - Prescription Opioid Use ms3 - Patient Portal Instructions ms3 - Leadership Thank You Letter ms3 Signatures: Dispatcher [employer] EDMS Sharan Hannon DO DO ms3 Milly Cuevas RN RN db Corrections: (The following items were deleted from the chart) 10:01 09:59 Constitutional: Negative for fever, and chills. Cardiovascular: Negative for ms3 chest pain, and palpitations. Abdomen/GI: Negative for abdominal pain, nausea, vomiting, diarrhea, and constipation, MS/Extremity: Negative for injury and deformity, ms3
[2024-07-12 11:54] VITALS: O2SAT 100
[2024-07-12 11:59] VITALS: BP 143/68
== END 2024-07-12 11:44 | disposition home or self-care (01) ==
LOC: ER 09:20
DX: T59.4X1A Toxic effect of chlorine gas, accidental (unintentional), initial encounter (principal); R06.02 Shortness of breath; R11.0 Nausea
CPT/HCPCS: 36415; 71046; 80048; 85025; 99284

== ENCOUNTER 2024-12-14 06:48 | Emergency (ER) | payer OTHER ==
[2024-12-14] MEDS ORDERED: NA CHLORIDE 0.9% 1,000 ML ONE (07:34)
[2024-12-14 09:34] LABS: Absolute Lymphocytes (CBC) 1.7 K/uL (0.7-4.9); Hematocrit 43.8 % (36.0-45.0); Hemoglobin 15.1 g/dL (12.0-15.0); MCH 30.2 pg (27.0-35.0); MCHC 34.5 g/dL (32.0-36.0); MCV 87.3 fL (80-100); MPV 8.4 fL (7.6-11.3); Nucleated RBC Absolute Count 0.0 (0-0); Nucleated Red Blood Cells % 0.1 % (0-0); RBC Red Blood Cell Count 5.01 M/uL (3.86-4.86); White Blood Count 7.30 thou/uL (4.3-10.9)
--- NOTE | 2024-12-14 09:49 | RAD REPORT ---
EXAM: Chest Pa And Lat (2 Views) HISTORY: 49 years Female CHEST PAIN COMPARISON: 07/29/2024 FINDINGS: LUNGS/PLEURA: The lungs are clear. No pleural effusions or pneumothorax. No pulmonary edema. CARDIAC/MEDIASTINUM: The cardiac silhouette is within normal limits. UPPER ABDOMEN: No significant abnormality. BONES: No acute abnormality. LINES/TUBES/OTHER: N/A IMPRESSION: No evidence of acute cardiopulmonary disease.
--- NOTE | 2024-12-14 09:53 | ER ---
Nurse's Notes [facility] Name: Effie Crouch Age: 49 yrs Sex: Female : 1975 Arrival Date: 12/14/2024 Time: 06:48 Bed 5 Private MD: Diagnosis: Acute upper respiratory infection, unspecified;Chest pain, unspecified Presentation: 12/14 07:15 Chief complaint: Patient states: FLU LIKE S/S (SNEEZING, SOB, EYE IRRITATION) SINCE bp Y/D. Coronavirus screen: At this time, the client does not indicate any symptoms associated with coronavirus-19. Ebola Screen: No symptoms or risks identified at this time. Initial Sepsis Screen: Does the patient have a suspected source of infection? No. Patient's initial sepsis screen is negative. Initial Sepsis Screen: Does the patient meet any 2 criteria? HR > 90 bpm. Initial Sepsis Screen: Does the patient meet any 2 criteria? No. Patient's initial sepsis screen is negative. Risk Assessment: Do you want to hurt yourself or someone else? Patient reports no desire to harm self or others. Onset of symptoms is unknown. 07:15 Method Of Arrival: Ambulatory bp 07:15 Acuity: MARNI 3 bp Triage Assessment: 07:17 General: Appears in no apparent distress. ill, Behavior is cooperative, appropriate for bp age, anxious. Pain: Denies pain. EENT: Reports nasal congestion nasal discharge. Neuro: No deficits noted. Cardiovascular: Rhythm is sinus tachycardia. Respiratory: Reports shortness of breath on exertion. GI: No deficits noted. : No signs and/or symptoms were reported regarding the genitourinary system. Derm: No deficits noted. Musculoskeletal: No deficits noted. Historical: - Allergies: 07:17 No Known Allergies; bp - PMHx: 07:17 Anemia; blood transfusion; Diabetes - NIDDM; Hypertension; bp - PSHx: 07:17 Appendectomy; Cholecystectomy; ; partial hysterectomy; bp - Immunization history:: Adult Immunizations up to date. - Infectious Disease History:: Denies. - Social history:: Smoking status: Patient denies any tobacco usage or history of. - Family history:: not pertinent. Screenin: [facility] ED Fall Risk Assessment (Adult) History of falling in the last 3 months, km10 including since admission No falls in past 3 months (0 pts) Confusion or Disorientation No (0 pts) Intoxicated or Sedated No (0 pts) Impaired Gait No (0 pts) Mobility Assist Device Used No (0 pt) Altered Elimination No (0 pt) Score/Fall Risk Level 0 - 2 = Low Risk Oriented to surroundings, Maintained a safe environment, Educated pt \\T\\ family on fall prevention, incl call for assistance when getting out of bed. Abuse screen: Denies threats or abuse. Denies injuries from another. Nutritional screening: No deficits noted. Tuberculosis screening: No symptoms or risk factors identified. Assessment: 07:20 General: Appears in no apparent distress. ill, Behavior is calm, cooperative, km10 appropriate for age. Pain: Complains of pain in head Pain does not radiate. Pain began gradually. Neuro: Level of Consciousness is awake, alert, obeys commands, Oriented to person, place, time, situation, Gait is steady. Respiratory: Reports cough that is pain with cough. EENT: Reports nasal congestion. Vital Signs: 07:15 BP 143 / 77; Pulse 120; Resp 20; Temp 97.4; Pulse Ox 100% ; bp 08:12 Pulse 88; Resp 16; Pulse Ox 100% on R/A; km10 09:52 BP 112 / 72; Pulse 103; Resp 16; Pulse Ox 100% on R/A; km10 10:10 BP 114 / 74; Pulse 93; Resp 17; Pulse Ox 98% on R/A; km10 [place] Coma Score: 08:12 Eye Response: spontaneous(4). Motor Response: obeys commands(6). Verbal Response: km10 oriented(5). Total: 15. ED Course: 06:54 Patient arrived in ED. im 07:07 Bairon Lujan MD is Attending Physician. jacqueline 07:07 Juliette Bunn, LISBETH is Primary Nurse. km10 07:08 Arm band placed on Patient placed in an exam room, on a stretcher. ll1 07:17 Triage completed. bp 07:22 Patient has correct armband on for positive identification. Bed in low position. Call km10 light in reach. Side rails up X 1. Provided Education on: plan of care. Client placed on continuous cardiac and pulse oximetry monitoring. NIBP monitoring applied. Warm blanket given. 07:42 No provider procedures requiring assistance completed. Inserted saline lock: 20 gauge km10 in right antecubital area, using aseptic technique. Blood collected. Flushed with 10 mL NS. Patient maintains SpO2 saturation greater than 95% on room air. 08:11 EKG done, by ED staff, reviewed by Bairon Lujan MD. [facility] 09:28 Chest Pa And Lat (2 Views) XRAY In Process Unspecified. EDFL 09:53 Randy Zee MD is Referral Physician. jacqueline 10:10 IV discontinued, intact, bleeding controlled, No redness/swelling at site. Pressure km10 dressing applied. Administered Medications: 07:40 Drug: NS 0.9% IV 1000 ml IV at 1000 ml once; to be given as a bolus over 60 minutes km10 Route: IV; Rate: 1000 ml; Site: right antecubital; 09:45 Follow up: Response: No adverse reaction; IV Status: Completed infusion km10 09:51 Drug: Decadron - Dexamethasone IVP 10 mg IVP once Route: IVP; Site: right antecubital; km10 10:09 Follow up: Response: Adverse reaction, Physician notified; "itching, burning" km10 10:00 Drug: AZITHromycin PO 500 mg PO once Route: PO; km10 10:09 Follow up: Response: No adverse reaction km10 Intake: Outcome: 09:52 Discharge ordered by . jacqueline 10:10 Discharged to home ambulatory, km10 10:10 Condition: stable 10:10 Discharge instructions given to patient, Instructed on discharge instructions, follow up and referral plans. medication usage, Demonstrated understanding of instructions, follow-up care, medications, Prescriptions given X 3, 10:32 Patient left the ED. km10 Signatures: Dispatcher [employer] EDFL Bairon Lujan MD MD cha Peltier, Brian, RN RN Kylah Morales RN RN ll1 Roxana Vaca 6 Kitty Schneider Kirsten, RN RN km10
--- NOTE | 2024-12-14 09:53 | EDPHYS ---
Physician Documentation [facility] Name: Effie Crouch Age: 49 yrs Sex: Female : 1975 Arrival Date: 12/14/2024 Time: 06:48 Bed 5 Private MD: DAMIEN Physician Bairon Lujan HPI: 12/14 09:48 This 49 yrs old Female presents to ER via Ambulatory with complaints of Flu jacqueline Symptoms, Chest Pressure. 09:48 The patient or guardian reports chest pain that is located primarily in the anterior jacqueline chest wall, bilaterally. Onset: 2 day(s) ago. The pain does not radiate. Associated signs and symptoms: Pertinent positives: upper resp symptoms. The chest pain is described as congestion. Severity of pain: At its worst the pain was mild in the emergency department the pain is unchanged. The patient has not experienced similar symptoms in the past. Historical: - Allergies: 07:17 No Known Allergies; bp - PMHx: 07:17 Anemia; blood transfusion; Diabetes - NIDDM; Hypertension; bp - PSHx: 07:17 Appendectomy; Cholecystectomy; ; partial hysterectomy; bp - Immunization history:: Adult Immunizations up to date. - Infectious Disease History:: Denies. - Social history:: Smoking status: Patient denies any tobacco usage or history of. - Family history:: not pertinent. ROS: 09:48 Constitutional: Negative for fever, chills, and weight loss, Eyes: Negative for injury, jacqueline pain, redness, and discharge, ENT: Negative for injury, pain, and discharge, Neck: Negative for injury, pain, and swelling, Abdomen/GI: Negative for abdominal pain, nausea, vomiting, diarrhea, and constipation, Back: Negative for injury and pain, : Negative for injury, bleeding, discharge, and swelling, MS/Extremity: Negative for injury and deformity, Skin: Negative for injury, rash, and discoloration, Neuro: Negative for headache, weakness, numbness, tingling, and seizure, Psych: Negative for depression, anxiety, suicide ideation, homicidal ideation, and hallucinations, Allergy/Immunology: Negative for hives, rash, and allergies, Endocrine: Negative for neck swelling, polydipsia, polyuria, polyphagia, and marked weight changes, Hematologic/Lymphatic: Negative for swollen nodes, abnormal bleeding, and unusual bruising, 09:48 Cardiovascular: Positive for chest pain, with cough, 09:48 Respiratory: Positive for cough, "sounds productive", Exam: 09:48 Constitutional: This is a well developed, well nourished patient who is awake, alert, jacqueline and in no acute distress. Head/Face: Normocephalic, atraumatic. Eyes: Pupils equal round and reactive to light, extra-ocular motions intact. Lids and lashes normal. Conjunctiva and sclera are non-icteric and not injected. Cornea within normal limits. Periorbital areas with no swelling, redness, or edema. ENT: Nares patent. No nasal discharge, no septal abnormalities noted. Tympanic membranes are normal and external auditory canals are clear. Oropharynx with no redness, swelling, or masses, exudates, or evidence of obstruction, uvula midline. Mucous membranes moist. Neck: Trachea midline, no thyromegaly or masses palpated, and no cervical lymphadenopathy. Supple, full range of motion without nuchal rigidity, or vertebral point tenderness. No Meningismus. Chest/axilla: Normal chest wall appearance and motion. Nontender with no deformity. No lesions are appreciated. Cardiovascular: Regular rate and rhythm with a normal S1 and S2. No gallops, murmurs, or rubs. Normal PMI, no JVD. No pulse deficits. Respiratory: Lungs have equal breath sounds bilaterally, clear to auscultation and percussion. No rales, rhonchi or wheezes noted. No increased work of breathing, no retractions or nasal flaring. Abdomen/GI: Soft, non-tender, with normal bowel sounds. No distension or tympany. No guarding or rebound. No evidence of tenderness throughout. Back: No spinal tenderness. No costovertebral tenderness. Full range of motion. Skin: Warm, dry with normal turgor. Normal color with no rashes, no lesions, and no evidence of cellulitis. MS/ Extremity: Pulses equal, no cyanosis. Neurovascular intact. Full, normal range of motion., bilateral aka Neuro: Awake and alert, GCS 15, oriented to person, place, time, and situation. Cranial nerves II-XII grossly intact. Motor strength 5/5 in all extremities. Sensory grossly intact. Cerebellar exam normal. Normal gait. 09:48 ENT: Nose: Nasal mucosa: edematous, 09:59 ECG was reviewed by the Attending Physician. [facility] Vital Signs: 07:15 BP 143 / 77; Pulse 120; Resp 20; Temp 97.4; Pulse Ox 100% ; bp 08:12 Pulse 88; Resp 16; Pulse Ox 100% on R/A; km10 09:52 BP 112 / 72; Pulse 103; Resp 16; Pulse Ox 100% on R/A; km10 10:10 BP 114 / 74; Pulse 93; Resp 17; Pulse Ox 98% on R/A; km10 [place] Coma Score: 08:12 Eye Response: spontaneous(4). Motor Response: obeys commands(6). Verbal Response: km10 oriented(5). Total: 15. MDM: 07:07 Medical Screening Exam initiated jacqueline 09:51 HEART Score: History: Slightly Suspicious (0), ECG: Normal (0), Age: > 45 and < 65 jacqueline years (1), Risk Factors: > or = 3 Risk factors for atherosclerotic disease (2), [Hypertension] [DM] [+ Family HX] Troponin: < or = 1 x Normal Limit (0). The patient was given aspirin in the Emergency Department. BRANDY Risk Score: 1 - Three or more CAD risk factors, TOTAL SCORE = 1. Data reviewed: vital signs, nurses notes, lab test result(s), EKG, radiologic studies, plain films. Consideration of Admission/Observation Escalation of care including admission/observation considered. I considered the following discharge prescriptions or medication management in the emergency department Medications were administered in the Emergency Department. See MAR. Independent interpretation of the following test(s) in the Emergency Department EKG: See my EKG interpretation above. Test considered but Not performed: CT: no ct pe. 12/14 07:20 Order name: CBC with Diff; Complete Time: 09:46 [facility] 12/14 07:20 Order name: CMP [facility] 12/14 09:46 Order name: Troponin High Sensitivity [facility] 12/14 07:20 Order name: Chest Pa And Lat (2 Views) XRAY; Complete Time: 09:56 [facility] 12/14 07:20 Order name: EKG - Nurse/Tech; Complete Time: 08:11 [facility] EC:59 Rate is 88 beats/min. Rhythm is regular. QRS [place] is Normal. MA interval is normal. QRS jacqueline interval is normal. QT interval is normal. No Q waves. T waves are Normal. No ST changes noted. Clinical impression: Normal ECG and No evidence of ischemia. Interpreted by me. Reviewed by me. Administered Medications: 07:40 Drug: NS 0.9% IV 1000 ml IV at 1000 ml once; to be given as a bolus over 60 minutes Route: IV; Rate: 1000 ml; Site: right antecubital; 09:45 Follow up: Response: No adverse reaction; IV Status: Completed infusion 09:51 Drug: Decadron - Dexamethasone IVP 10 mg IVP once Route: IVP; Site: right antecubital; 10:09 Follow up: Response: Adverse reaction, Physician notified; "itching, burning" 10:00 Drug: AZITHromycin PO 500 mg PO once Route: PO; 10:09 Follow up: Response: No adverse reaction Disposition Summary: 12/14/24 09:52 Discharge Ordered Notes: Location: Home jacqueline Problem: new jacqueline Symptoms: have improved jacqueline Condition: Stable jacqueline Diagnosis - Acute upper respiratory infection, unspecified jacqueline - Chest pain, unspecified jacqueline Followup: jacqueline - With: Private Physician - When: 2 - 3 days - Reason: Recheck today's complaints, Continuance of care, Re-evaluation by your physician Followup: jacqueline - With: Randy Zee MD - When: 2 - 3 days - Reason: Recheck today's complaints, Re-evaluation by your physician Discharge Instructions: - Discharge Summary Sheet jacqueline - Nonspecific Chest Pain, Adult jacqueline - Upper Respiratory Infection, Adult jacqueline - Nonspecific Chest Pain, Adult, [id number] jacqueline - Upper Respiratory Infection, Adult, [id number] jacqueline - Aspirin and Your Heart [facility] Forms: - Medication Reconciliation Form [facility] - Antibiotic Education [facility] - Prescription Opioid Use [facility] - Patient Portal Instructions [facility] - Leadership Thank You Letter [facility] Prescriptions: - Tessalon Perles 100 mg Oral capsule - take 2 capsule ORAL route every 8 hours As needed; 30 capsule; Refills: 0, [facility] Product Selection Permitted - Zithromax 500 mg Oral Tablet - take 1 tablet ORAL route once daily for 5 days; 5 tablet; Refills: 0, Product jacqueline Selection Permitted - Dexamethasone 2mg Oral tablet - take 1 tablet ORAL route daily for 4 days; 4 tablet; Refills: 0, Product [facility] Selection Permitted Signatures: Dispatcher [employer] Bairon Pagan MD MD cha Peltier, Brian RN RN bp Juliette Bunn, RN RN km10 Corrections: (The following items were deleted from the chart) : 09:24 Chest Pa And Lat (2 Views)+RAD.RAD.BRZ ordered. EDMS EDMS 09:24 CBC+H.LAB.BRZ ordered. EDMS EDMS : 09:24 COMPREHENSIVE METABOLIC PANEL+C.LAB.BRZ ordered. EDMS EDMS 09:24 COVID-19 Ag + Flu A+B Ag+I.LAB.BRZ ordered. EDMS EDMS
[2024-12-14] MEDS ORDERED: AZITHROMYCIN 250 MG TAB ONE (09:55)
[2024-12-14 10:01] LABS: ALT/SGPT 24.0 U/L (13-56); Albumin 3.4 g/dL (3.4-5.0); Albumin/Globulin Ratio 0.9 (1.1-1.8); Alkaline Phosphatase 94.0 U/L (45-117); Anion Gap 13.6 mEq/L (5.0-15.0); BUN Blood Urea Nitrogen 19.0 mg/dL (7-18); Globulin 3.8 g/dL (2.3-3.5); Glucose Level 272.0 mg/dL (74-106)
[2024-12-14 10:02] LABS: AST/SGOT 12.0 U/L (15-37); Potassium 3.6 mEq/L (3.5-5.1)
[2024-12-14 13:19] VITALS: TEMP 97.4
[2024-12-14 13:37] VITALS: BP 114/74; O2SAT 98
== END 2024-12-14 10:32 | disposition home or self-care (01) ==
LOC: ER 06:48
DX: J06.9 Acute upper respiratory infection, unspecified (principal); R07.89 Other chest pain; D64.9 Anemia, unspecified; E11.9 Type 2 diabetes mellitus without complications; I10 Essential (primary) hypertension
CPT/HCPCS: 96361; 93005; 85025; 36415; 84484; 80053; 71046; 96374; 99285; J1100; J7030